=== PATIENT | female | born 1945 | race Two or more races ===

== ENCOUNTER 2019-11-01 10:54 | Inpatient (IN) | payer MEDICARE, MEDICAID ==
[~2019-11-01] VITALS: Ht 160 cm; Wt 73.1 kg
[2019-11-01] VITALS (16 sets, daily range): BP systolic 89–101; BP diastolic 46–65
--- NOTE | 2019-11-01 11:10 | NUR ---
ED Nurse Note: pt brought in to ER by ambulance from [facility] due to low hemoglobin. pt aao x0 and opens eyes spontaneusly. no cough or fever noted. pt is in gown and on threat monitoring analyst. ERMD and RT at bedside. pt has trache with vent dependent. G-tube and FC present.
[2019-11-01 11:54] LABS: ANION GAP 11 mmol/L (5-15); BLOOD UREA NITROGEN 33 mg/dL (7-18); CALCIUM 8.7 MG/DL (8.5-10.1); CARBON DIOXIDE 24 MMOL/L (21-32); CHLORIDE 100 MMOL/L (98-107); POTASSIUM 4.4 MMOL/L (3.5-5.1); SODIUM 135 MMOL/L (136-145)
[2019-11-01 12:06] LABS: ALANINE AMINOTRANSFERASE < 6 U/L (12-78); ALBUMIN 2.3 G/DL (3.4-5.0); ALBUMIN/GLOBULIN RATIO 0.6 (1.0-2.7); ALKALINE PHOSPHATASE 76 U/L (46-116); ASPARTATE AMINO TRANSFERASE 22 U/L (15-37); BILIRUBIN,TOTAL 0.7 MG/DL (0.2-1.0)
[2019-11-01 12:06] LABS: APPEARANCE,URINE SLIGHTLY CLOUDY; BILIRUBIN, URINE NEGATIVE (NEGATIVE); GLUCOSE, URINE (UA) NEGATIVE (NEGATIVE); KETONES,URINE 1+ (NEGATIVE); LEUKOCYTE ESTERASE ,URINE 3+ (NEGATIVE); NITRITE,URINE NEGATIVE (NEGATIVE); PH,URINE 5 (4.5-8.0); PROTEIN,URINE 2+ (NEGATIVE); UROBILINOGEN,URINE NORMAL MG/DL (0.0-1.0)
[2019-11-01 12:11] LABS: COLOR,URINE ORANGE
[2019-11-01 13:02] LABS: INR 1.3 (0.9-1.1)
[2019-11-01 13:06] LABS: HEMATOCRIT 20.1 % (37.0-47.0); HEMOGLOBIN 6.5 G/DL (12.0-16.0); MEAN CORPUSCULAR VOLUME 84 FL (80-99); PLATELET COUNT 40 K/UL (150-450); RED CELL DISTRIBUTION WIDTH 15.3 % (11.6-14.8); WHITE BLOOD COUNT 13.3 K/UL (4.8-10.8)
--- NOTE | 2019-11-01 13:30 | NUR ---
ED Nurse Note: pt resting in bed without distress. opens eyes spontaneously. no fever, cough noted.
--- NOTE | 2019-11-01 14:10 | Emergency Room Report ---
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 COVID-19 Screening: Negative COVID-19 COVID-19 Testing Source: TONGUER Patient History Past Medical History: other - trach Past Surgical History: none Pertinent Family History: none Social History: Denies: smoking, alcohol use, drug use Now: No Immunizations: UTD Reviewed Nursing Documentation: PMH: Agreed; PSxH: Agreed Review of Systems All Other Systems: limited Physical Exam Vital Signs Date Time Temp Pulse Resp B/P (MAP) Pulse Ox O2 Delivery O2 Flow Rate FiO2 11/01/19 10:56 97.3 90 24 101/47 (65) 100 Mechanical Ventilator 11/01/19 11:51 50 Sp02 EP Interpretation: reviewed, normal General Appearance: no apparent distress, GCS 15, non-toxic, other - nonverbal Head: normocephalic, atraumatic Eyes: bilateral eye normal inspection, bilateral eye PERRL ENT: hearing grossly normal, normal pharynx, no angioedema, normal voice Neck: full range of motion, supple/symm/no masses, tracheotomy Respiratory: chest non-tender, lungs clear, normal breath sounds, speaking full sentences Cardiovascular #1: regular rate, rhythm, no edema Cardiovascular #2: 2+ carotid (R), 2+ carotid (L), 2+ radial (R), 2+ radial (L) , 2+ dorsalis pedis (R), 2+ dorsalis pedis (L) Gastrointestinal: normal bowel sounds, non tender, soft, non-distended, no guarding, no rebound Rectal: deferred Genitourinary: normal inspection, no CVA tenderness Musculoskeletal: back normal, normal range of motion, gait/station normal, non- tender Neurologic: alert, motor strength/tone normal, oriented x3, sensory intact, responsive, speech normal Psychiatric: judgement/insight normal, memory normal, mood/affect normal, no suicidal/homicidal ideation Reflexes: 3+ bicep (R), 3+ bicep (L), 3+ tricep (R), 3+ tricep (L), 3+ knee (R) , 3+ knee (L) Skin: other - see nursing skin notes Lymphatic: no adenopathy Medical Decision Making Diagnostic Impression: Primary Impression: Anemia Qualified Codes: D64.9 - Anemia, unspecified Additional Impressions: Tracheostomy dependence UTI (urinary tract infection) Qualified Codes: N39.0 - Urinary tract infection, site not specified ER Course Hospital Course 74-year-old female presents to ED for low hb/hct from SNF. trach dependent Differential diagnoses include: anemia requiring transfusion, microcytic anemia , macrocytic anemia, heavy blood loss Clinical course Patient placed on stretcher. After initial history and physical I ordered labs , EKG, CXR, IVFs Labs- minimal leukocytosis, hemoglobin/hematocrit 6.5/20.1. Electrolytes okay, coags ok, UA + bacteria PRBCs ordered. Given IV fluids. Given antibiotics Patient admitted to Dr Prince's service. he noted that patient is DNR. Diagnosis - anemia, tracheostomy dependence, UTI Admitted to SDU in serious condition Labs Test 11/01/19 11:30 11/01/19 11:45 11/01/19 12:05 Sodium Level 135 MMOL/L (136-145) Potassium Level 4.4 MMOL/L (3.5-5.1) Chloride Level 100 MMOL/L (98-107) Carbon Dioxide Level 24 MMOL/L (21-32) Anion Gap 11 mmol/L (5-15) Blood Urea Nitrogen 33 mg/dL (7-18) Creatinine 1.0 MG/DL (0.55-1.30) Estimat Glomerular Filtration Rate 54.0 mL/min (>60) Glucose Level 121 MG/DL (74-106) Calcium Level 8.7 MG/DL (8.5-10.1) Total Bilirubin 0.7 MG/DL (0.2-1.0) Aspartate Amino Transf (AST/SGOT) 22 U/L (15-37) Alanine Aminotransferase (ALT/SGPT) < 6 U/L (12-78) Alkaline Phosphatase 76 U/L (46-116) Pro-B-Type Natriuretic Peptide 687 pg/mL (0-125) Total Protein 6.4 G/DL (6.4-8.2) Albumin 2.3 G/DL (3.4-5.0) Globulin 4.1 g/dL Albumin/Globulin Ratio 0.6 (1.0-2.7) Urine Color [place] Urine Appearance Slightly cloudy Urine pH 5 (4.5-8.0) Urine Specific [place] 1.010 (1.005-1.035) Urine Protein 2+ (NEGATIVE) Urine Glucose (UA) Negative (NEGATIVE) Urine Ketones 1+ (NEGATIVE) Urine Blood 2+ (NEGATIVE) Urine Nitrite Negative (NEGATIVE) Urine Bilirubin Negative (NEGATIVE) Urine Urobilinogen Normal MG/DL (0.0-1.0) Urine Leukocyte Esterase 3+ (NEGATIVE) Urine RBC 2-4 /HPF (0 - 2) Urine WBC 10-15 /HPF (0 - 2) Urine Squamous Epithelial Cells Few /LPF (NONE/OCC) Urine Calcium Oxalate Crystals Few /LPF (NONE) Urine Bacteria Many /HPF (NONE) White Blood Count 13.3 K/UL (4.8-10.8) Red Blood Count 2.40 M/UL (4.20-5.40) Hemoglobin 6.5 G/DL (12.0-16.0) Hematocrit 20.1 % (37.0-47.0) Mean Corpuscular Volume 84 FL (80-99) Mean Corpuscular Hemoglobin 27.0 PG (27.0-31.0) Mean Corpuscular Hemoglobin Concent 32.2 G/DL (32.0-36.0) Red Cell Distribution Width 15.3 % (11.6-14.8) Platelet Count 40 K/UL (150-450) Mean Platelet Volume 16.3 FL (6.5-10.1) Neutrophils (%) (Auto) % (45.0-75.0) Lymphocytes (%) (Auto) % (20.0-45.0) Monocytes (%) (Auto) % (1.0-10.0) Eosinophils (%) (Auto) % (0.0-3.0) Basophils (%) (Auto) % (0.0-2.0) Prothrombin Time 13.7 SEC (9.30-11.50) Prothromb Time International Ratio 1.3 (0.9-1.1) Activated Partial Thromboplast Time 28 SEC (23-33) EKG Diagnostic Results Rate: normal Rhythm: NSR ST Segments: no acute changes ASA given to the pt in ED: No Rhythm Strip Diag. Results EP Interpretation: yes Rhythm: NSR, no PVC's, no ectopy Chest X-Ray Diagnostic Results Chest X-Ray Diagnostic Results : Chest X-Ray Ordered: Yes # of Views/Limited/Complete: 1 View Indication: Other EP Interpretation: Yes Interpretation: no pneumothorax, other - L sided effusion. perihilar fullness Impression: Other - pleural effusion Electronically Signed by: Electronically signed by Justen Villarreal MD Last Vital Signs Date Time Temp Pulse Resp B/P (MAP) Pulse Ox O2 Delivery O2 Flow Rate FiO2 11/01/19 11:51 89 25 50 11/01/19 11:20 97.3 89/53 100 Mechanical Ventilator Status: improved Disposition: ADMITTED INPATIENT Condition: Serious Referrals: Fredrick Prince MD (PCP) Justen Villarreal MD Nov 01, 2019 14:10
--- NOTE | 2019-11-01 15:07 | Diagnostic Imaging Report ---
Indication: Shortness of breath Technique: One view of the chest Comparison: none Findings: The left hemidiaphragm is elevated. Atelectatic changes are present in the left lung base. There is minimal right basilar atelectasis. No definite infiltrates. There is a tracheostomy. Impression: Elevated left hemidiaphragm with considerable left basilar atelectasis. Less extensive right basilar atelectasis.
--- NOTE | 2019-11-01 16:41 | NUR ---
RESPIRATORY NOTE: pt arrived to ER and on vent. pt is trached with cuffed shiley 6 in placed. trach tie, ballards and gauze were changed here. pt stoma, slightly red but no bleeding. per EMS vent settings upon arrival were AC 20 400 30% +5. no signs of resp distress noted. trach is secured and midline. RN at bedside.
--- NOTE | 2019-11-01 17:04 | NUR ---
ED Nurse Note: pt skin checked with 1 [employer] MEDIA PROGRAM DIRECTOR. pictures taken and uploaded.
[2019-11-01] MEDS ORDERED: ROXICODONE5 MG GT (18:19)
[2019-11-01] MEDS ORDERED: MULTI-DELYN237 ML GT (18:19)
[2019-11-01] MEDS ORDERED: SENNA8.6 M2 GT (18:19)
[2019-11-01] MEDS ORDERED: DOCUSATE SODIU100 M2 GT (18:19)
[2019-11-01] MEDS ORDERED: ARGINAID POWDE1 EACH GT (18:19)
[2019-11-01] MEDS ORDERED: ASCORBIC ACID500 M3 ORAL (18:19)
[2019-11-01] MEDS ORDERED: ALLOPURINOL100 M1 GT (18:19)
[2019-11-01] MEDS ORDERED: ARICEPT23 MG GT (18:19)
--- NOTE | 2019-11-01 18:23 | NUR ---
ED Nurse Note: resting in bed without s/s of acute distress. vs stable as documented.
--- NOTE | 2019-11-01 18:29 | NUR ---
ED Nurse Note: called Jose Maria at number [phone] and received verbal consent to start blood transfusion.
--- NOTE | 2019-11-01 19:05 | NUR ---
ED Nurse Note: Received report from Daphne DUKE. Pt seen in bed, eyes closed. AAOx0. Pt is on vent, tolerating well. Safety and comfort provided. Will cont to monitor.
--- NOTE | 2019-11-01 19:50 | NUR ---
ED Nurse Note: Blood was picked up from Blood bank by an RN.
--- NOTE | 2019-11-01 19:55 | NUR ---
ED Nurse Note: Blood transfusion started, verified blood with another RN. No ASE noted.
--- NOTE | 2019-11-01 21:54 | NUR ---
ED Nurse Note: Blood transfusion done. Blood and blood tubings were sentback to blood bank. No ASE, pt tolerated well. 2nd unit of blood was picked up by an RN.
--- NOTE | 2019-11-01 22:05 | NUR ---
ED Nurse Note: Blood transfusion started. 2nd blood of unit verified with another RN. No ASE.
--- NOTE | 2019-11-01 22:55 | History & Physical ---
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 COVID-19 Screening: Negative COVID-19 COVID-19 Testing Source: DIVERSITY MANAGER Patient History Past Medical History: other - trach Past Surgical History: none Pertinent Family History: none Social History: Denies: smoking, alcohol use, drug use Now: No Immunizations: UTD Reviewed Nursing Documentation: PMH: Agreed; PSxH: Agreed Review of Systems All Other Systems: trach, demntia, aphsia ER Physical Exam - General Physical Exam Vital Signs Date Time Temp Pulse Resp B/P (MAP) Pulse Ox O2 Delivery O2 Flow Rate FiO2 11/01/19 10:56 97.3 90 24 101/47 (65) 100 Mechanical Ventilator 11/01/19 11:51 50 Sp02 EP Interpretation: reviewed, normal General Appearance: no apparent distress, GCS 15, non-toxic, other - nonverbal Head: normocephalic, atraumatic +temporal wasting Eyes: bilateral eye normal inspection, bilateral eye PERRL ENT: hearing grossly normal, normal pharynx, no angioedema, normal voice Neck: full range of motion, supple/symm/no masses, tracheotomy Respiratory: chest non-tender, lungs clear, normal breath sounds, speaking full sentences Cardiovascular #1: regular rate, rhythm, no edema Cardiovascular #2: 2+ carotid (R), 2+ carotid (L), 2+ radial (R), 2+ radial (L) , 2+ dorsalis pedis (R), 2+ dorsalis pedis (L) Gastrointestinal: normal bowel sounds, non tender, soft, non-distended, no guarding, no rebound Rectal: deferred Genitourinary: normal inspection, no CVA tenderness Musculoskeletal: back normal, normal range of motion, gait/station normal, non- tender +contractures Neurologic: alert, motor strength/tone normal, oriented x3, sensory intact, responsive, speech normal Psychiatric: judgement/insight normal, memory normal, mood/affect normal, no suicidal/homicidal ideation Skin: other - see nursing skin notes Lymphatic: no adenopathy pressure ulcers +dong Labs Test 11/01/19 11:30 11/01/19 11:45 11/01/19 12:05 Sodium Level 135 MMOL/L (136-145) Potassium Level 4.4 MMOL/L (3.5-5.1) Chloride Level 100 MMOL/L (98-107) Carbon Dioxide Level 24 MMOL/L (21-32) Anion Gap 11 mmol/L (5-15) Blood Urea Nitrogen 33 mg/dL (7-18) Creatinine 1.0 MG/DL (0.55-1.30) Estimat Glomerular Filtration Rate 54.0 mL/min (>60) Glucose Level 121 MG/DL (74-106) Calcium Level 8.7 MG/DL (8.5-10.1) Total Bilirubin 0.7 MG/DL (0.2-1.0) Aspartate Amino Transf (AST/SGOT) 22 U/L (15-37) Alanine Aminotransferase (ALT/SGPT) < 6 U/L (12-78) Alkaline Phosphatase 76 U/L (46-116) Pro-B-Type Natriuretic Peptide 687 pg/mL (0-125) Total Protein 6.4 G/DL (6.4-8.2) Albumin 2.3 G/DL (3.4-5.0) Globulin 4.1 g/dL Albumin/Globulin Ratio 0.6 (1.0-2.7) Urine Color [place] Urine Appearance Slightly cloudy Urine pH 5 (4.5-8.0) Urine Specific [place] 1.010 (1.005-1.035) Urine Protein 2+ (NEGATIVE) Urine Glucose (UA) Negative (NEGATIVE) Urine Ketones 1+ (NEGATIVE) Urine Blood 2+ (NEGATIVE) Urine Nitrite Negative (NEGATIVE) Urine Bilirubin Negative (NEGATIVE) Urine Urobilinogen Normal MG/DL (0.0-1.0) Urine Leukocyte Esterase 3+ (NEGATIVE) Urine RBC 2-4 /HPF (0 - 2) Urine WBC 10-15 /HPF (0 - 2) Urine Squamous Epithelial Cells Few /LPF (NONE/OCC) Urine Calcium Oxalate Crystals Few /LPF (NONE) Urine Bacteria Many /HPF (NONE) White Blood Count 13.3 K/UL (4.8-10.8) Red Blood Count 2.40 M/UL (4.20-5.40) Hemoglobin 6.5 G/DL (12.0-16.0) Hematocrit 20.1 % (37.0-47.0) Mean Corpuscular Volume 84 FL (80-99) Mean Corpuscular Hemoglobin 27.0 PG (27.0-31.0) Mean Corpuscular Hemoglobin Concent 32.2 G/DL (32.0-36.0) Red Cell Distribution Width 15.3 % (11.6-14.8) Platelet Count 40 K/UL (150-450) Mean Platelet Volume 16.3 FL (6.5-10.1) Neutrophils (%) (Auto) % (45.0-75.0) Lymphocytes (%) (Auto) % (20.0-45.0) Monocytes (%) (Auto) % (1.0-10.0) Eosinophils (%) (Auto) % (0.0-3.0) Basophils (%) (Auto) % (0.0-2.0) Prothrombin Time 13.7 SEC (9.30-11.50) Prothromb Time International Ratio 1.3 (0.9-1.1) Activated Partial Thromboplast Time 28 SEC (23-33) EKG Diagnostic Results Rate: normal Rhythm: NSR ST Segments: no acute changes ASA given to the pt in ED: No Rhythm Strip Diag. Results Rhythm: NSR, no PVC's, no ectopy Chest X-Ray Diagnostic Results Chest X-Ray Diagnostic Results : Chest X-Ray Ordered: Yes # of Views/Limited/Complete: 1 View Indication: Other EP Interpretation: Yes Interpretation: no pneumothorax, other - L sided effusion. 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 Fredrick Prince MD Nov 01, 2019 22:54
[2019-11-01] MEDS ORDERED: Metoclopramide 10mg/2ml Inj IVP PRN (23:15)
[2019-11-01] MEDS: Acetaminophen 650mg/20.3ml NG SCH ×2 (23:15→23:56)
[2019-11-01] MEDS ORDERED: Acetaminophen 650mg/20.3ml NG ONE (23:15)
[2019-11-02] VITALS (8 sets, daily range): BP systolic 97–150; BP diastolic 50–69
--- NOTE | 2019-11-02 01:32 | NUR ---
ED Nurse Note: Blood transfusion done. No ASE noted, pt tolerated well. Blood tubings are sent to blood bank
--- NOTE | 2019-11-02 04:15 | NUR ---
ED Nurse Note: Pt seen in bed, eyes closed. No acute distress. On mech vent, tolerating well. Safety and comfort provided.
--- NOTE | 2019-11-02 05:39 | NUR ---
ED Nurse Note: Report given to Sarwat DUKE.
--- NOTE | 2019-11-02 05:45 | NUR ---
TRANSFER TO FLOOR: Patient transferred to SDU. Report given to Sarwat DUKE. Pt AAOx0, non verbal. Not in any distress. Pt is trach/ vent dependent. Sinus rhythm. Swabs are sent. Skin assessement done and uploaded. Pt doesnt have any belongings.
--- NOTE | 2019-11-02 06:00 | NUR ---
NURSE NOTES: Pt transferred to the unit via [facility], belonging checked. Skin checked and picture taken and will be uploaded. Pt Obtunded, no signs of pain noted. SR on diagnostic cardiac sonographer. Trach to vent, AC mode, TV 400, FIO2 60%, PEEP 5. IV on R AC 22G, TKO. Bed in the lowest position. Side rails up x3. Will continue to monitor.
--- NOTE | 2019-11-02 07:50 | NUR ---
HAND-OFF: Report given to SRIKANTH Coelho.
--- NOTE | 2019-11-02 07:55 | NUR ---
NURSE NOTES: Received report from SRIKANTH Pastor. The patient is resting on the bed without acute distress or shortness of breath. [facility] communication made by facial expression and body movement. SR with HR of 90s on the desk monitor. [facility] and on ventilator on ordered setting as followed: Shiley 6, AC20, TV 400, PEEP 5, FiO2 30% and oxygen saturation is 100%. The patient's GJ tube intact and patent. The patient is on Osmolite 1.5 @10mL/hr with goal of 40mL/hr with prostat TID. The patient has Bailey that is intact and patent and draining by gravity. Skin issue noted and picture taken and skin protector applied. R AC 22G that is intact and patent and kept TKO. Will obtain admission order. Will closely monitor the patient. Will continue plan of care. Addendum: 11/02/19 at 1451 by Maciel Graham RN The patient's bed in the lowest position, call light in reach, and fall and aspiration precaution reinforced.
[2019-11-02] MEDS ORDERED: Miralax 17gm pkt ORAL PRN (08:00)
[2019-11-02] MEDS ORDERED: oxyCODONE 5mg IR tab GT PRN (08:15)
[2019-11-02] MEDS ORDERED: Miralax 17gm pkt GT PRN (08:30)
--- NOTE | 2019-11-02 08:30 | NUR ---
NURSE NOTES: Obtained admission orders from Dr. Prince including medication, wound care consult, COVID swab repeating, contraindication of DVT prophylasix, confirmation of code status, and stat CBC. Will carry out the order as soon as possible. Will continue plan of care.
[2019-11-02] MEDS ORDERED: Morphine Sulfate 2mg/ml Inj(IV/IM USE ONLY) IVP PRN (08:36)
[2019-11-02] MEDS ORDERED: Docusate 100mg cap ORAL SCH (09:00)
[2019-11-02] MEDS: oxyCODONE 5mg IR tab GT SCH ×4 (09:00→20:45)
--- NOTE | 2019-11-02 09:30 | NUR ---
NURSE NOTES: Notified Dr. Prince regarding updated abnormal lab. Informed uptrend of WBC, uptrend of Hgb s/p 2 unit pRBC transfusion @ ER, low platelet level, and elevated band level. Will wait for further order. Will continue plan of care.
[2019-11-02 09:44] LABS: HEMATOCRIT 26.5 % (37.0-47.0); HEMOGLOBIN 9.1 G/DL (12.0-16.0); MEAN CORPUSCULAR VOLUME 82 FL (80-99); PLATELET COUNT 48 K/UL (150-450); RED BLOOD COUNT 3.22 M/UL (4.20-5.40); RED CELL DISTRIBUTION WIDTH 14.3 % (11.6-14.8); WHITE BLOOD COUNT 15.5 K/UL (4.8-10.8)
[2019-11-02] MEDS: Docusate 100mg/10ml Liq GT SCH (09:55)
[2019-11-02] MEDS: Levodopa/Carbidopa 25/100 tab GT SCH ×4 (09:56→20:46)
[2019-11-02] MEDS: Multivitamins W/Minerals 15 ML UDC GT SCH (09:56)
[2019-11-02] MEDS: Ascorbic Acid 500mg tab GT SCH (09:57)
[2019-11-02] MEDS: Allopurinol 100mg Tab GT SCH ×3 (09:58→19:26)
[2019-11-02] MEDS ORDERED: Cefepime HCl 1 GM in D5W 55 ML IVPB SCH (10:00)
--- NOTE | 2019-11-02 10:00 | NUR ---
NURSE NOTES: Morning medications administered per order. The patient is resting comfortably at this time. Will closely monitor the patient. Will continue plan of care.
--- NOTE | 2019-11-02 10:00 | NUR ---
NURSE NOTES: The pharmacist verified with Dr. Prince regarding order of Cefepime since the patient is allergic to PCN. Approved by Dr. Prince and the pharmacist. Will administer as ordered but will closely monitor the patient for adverse reaction. Will continue plan of care.
--- NOTE | 2019-11-02 11:17 | NUR ---
RD ASSESSMENT & RECOMMENDATIONS SEE CARE ACTIVITY FOR COMPLETE ASSESSMENT DAILY ESTIMATED NEEDS: Needs based on Critical care, wounds, 64kg 22-28 kcals/kg 0858-3607 total kcals 1.25-2 g protein/kg 80-128 g total protein 25-30 mL/kg 7723-7185 total fluid mLs NUTRITION DIAGNOSIS: Swallowing difficulty r/t respiratory status as evidenced by pt is trach and peg dep. 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 - Start @25ml/hr for 6 hrs, advance as tolerated 10ml/hr q4-6 hrs to goal - Flush per - HOB over 30 degrees ADDITIONAL RECOMMENDATIONS: 1) Per SNF: 65 inches (5'5"); 141 lbs (64.1kg) 2) TF recs as above 3) F/up w/ WC eval -> add MEIR BID via GT
--- NOTE | 2019-11-02 11:30 | NUR ---
NURSE NOTES: Notified Dr. Prince regarding positive blood culture result. Dr. Prince ordered physician consult to Dr. Houser for wound and Dr. Membreno for positive blood culture. Will closely monitor the patient. Will continue plan of care.
--- NOTE | 2019-11-02 12:14 | NUR ---
CASE MANAGEMENT: REVIEW 74 YEAR OLD FEMALE BIBA FROM [facility] CC: ABNORMAL LABS SI: ANEMIA . UTI . TRACHEOSTOMY DEPENDENCE T 99.5 HE 101 RR 25 BP 111/62 SAT 100% FIO2 30 WBC 15.5 H/H 6.5/20.1 BLAST CELLS 40% URINE CX -- GRAM NEG BACILLUS IS: NS IVF BOLUS X1 LEVOFLOXACIN IV X1 TYLENOL GT X1 TRANSFUSE PRBC 2 UNITS PATIENT ADMITTED TO STEP DOWN UNIT 2019 DCP: PATIENT IS FROM [facility] Addendum: 11/02/19 at 1630 by OMAR PINTO LVN LVN INTERQUAL CRITERIA MET
--- NOTE | 2019-11-02 12:16 | Internal Med Progress Note ---
Subjective Date of Service: Nov 02, 2019 Physician Name Fredrick Prince Attending Physician Fredrick Prince MD Current Medications Medications (Trade) Dose Ordered Sig/Inna Route PRN Reason Start Time Stop Time Status Last Admin Dose Admin Acetaminophen (Tylenol) 650 mg Q4H PRN NG fever 100.4, mild pain 11/01/19 23:15 12/01/19 23:14 Allopurinol (Zyloprim) 100 mg TID GT 11/02/19 09:00 12/02/19 08:59 11/02/19 09:58 Ascorbic Acid (Vitamin C) 500 mg DAILY GT 11/02/19 09:00 12/02/19 08:59 11/02/19 09:57 Carbidopa/Levodopa (Sinemet 25/100) 2 tab QID GT 11/02/19 09:00 12/02/19 08:59 11/02/19 09:56 Cefepime HCl 1 gm/ Dextrose 55 ml @ 110 mls/hr Q12HR IVPB 11/02/19 10:00 11/09/19 09:59 11/02/19 09:58 Docusate Sodium (Colace) 100 mg DAILY GT 11/02/19 09:00 12/02/19 08:59 11/02/19 09:55 Donepezil HCl (Aricept) 10 mg QHS GT 11/02/19 21:00 12/02/19 20:59 Lansoprazole (Prevacid) 30 mg BID GT 11/02/19 09:00 12/02/19 08:59 11/02/19 09:56 Metoclopramide HCl (Reglan) 5 mg Q6H PRN IVP nausea or vomiting 11/01/19 23:15 12/01/19 23:14 Morphine Sulfate (Morphine Sulfate) 2 mg Q3H PRN IVP Moderate Pain (Pain Scale 4-6) 11/02/19 08:36 11/09/19 08:35 Multivitamins (Multivitamins W/ Minerals 15ml Liquid) 15 ml DAILY GT 11/02/19 09:00 12/02/19 08:59 11/02/19 09:56 Ondansetron HCl (Zofran) 4 mg Q4H PRN IVP Nausea & Vomiting 11/01/19 23:15 12/01/19 23:14 Oxycodone HCl (Roxicodone) 10 mg Q4HR GT 11/02/19 09:00 11/09/19 08:59 Polyethylene Glycol (Miralax) 17 gm DAILY PRN GT Constipation 11/02/19 08:30 12/02/19 07:59 Quetiapine Fumarate (SEROqueL) 50 mg QHS GT 11/02/19 21:00 12/17/19 20:59 Sennosides (Senokot) 8.6 mg QHS GT 11/02/19 21:00 12/02/19 20:59 Sodium Chloride 1,000 ml @ 10 mls/hr Q24H ONCE IV 11/01/19 13:11 11/02/19 13:10 Allergies: Coded Allergies: PENICILLINS (Verified Allergy, Unknown, 11/01/19) VANCOMYCIN (Verified Allergy, Unknown, 11/01/19) Uncoded Allergies: PENICI (Allergy, Unknown, 11/01/19) ROS Limited/Unobtainable: Yes All Systems: reviewed and negative except above Subjective non verbal, chronic trach Objective Last Vital Signs Date Time Temp Pulse Resp B/P (MAP) Pulse Ox O2 Delivery O2 Flow Rate FiO2 11/02/19 11:30 99.5 101 20 111/62 (78) 100 11/02/19 11:15 30 11/02/19 05:49 Mechanical Ventilator General Appearance: no apparent distress Cardiovascular: normal rate, regular rhythm, no JVD Respiratory/Chest: rhonchi - bilaterally Abdomen: normal bowel sounds, non tender, soft Neurologic: aphasia, other - does not follow command Skin: warm/dry, other - unstageable decubiti ulcer Laboratory Tests Test 11/02/19 09:10 White Blood Count 15.5 K/UL (4.8-10.8) H Red Blood Count 3.22 M/UL (4.20-5.40) L Hemoglobin 9.1 G/DL (12.0-16.0) #L Hematocrit 26.5 % (37.0-47.0) #L Mean Corpuscular Volume 82 FL (80-99) Mean Corpuscular Hemoglobin 28.3 PG (27.0-31.0) Mean Corpuscular Hemoglobin Concent 34.5 G/DL (32.0-36.0) Red Cell Distribution Width 14.3 % (11.6-14.8) Platelet Count 48 K/UL (150-450) L Mean Platelet Volume 9.8 FL (6.5-10.1) Neutrophils (%) (Auto) % (45.0-75.0) Lymphocytes (%) (Auto) % (20.0-45.0) Monocytes (%) (Auto) % (1.0-10.0) Eosinophils (%) (Auto) % (0.0-3.0) Basophils (%) (Auto) % (0.0-2.0) Differential Total Cells Counted 100 Neutrophils % (Manual) 31 % (45-75) L Lymphocytes % (Manual) 12 % (20-45) L Monocytes % (Manual) 12 % (1-10) H Eosinophils % (Manual) 4 % (0-3) H Basophils % (Manual) 0 % (0-2) Blast Cells % 41 % (0-0) *H Band Neutrophils 0 % (0-8) Platelet Estimate Decreased L Platelet Morphology Normal Hypochromasia 2+ Anisocytosis 1+ Microbiology Date/Time Source Procedure Growth Status 11/01/19 11:45 Urine,Clean Catch Urine Culture - Preliminary Gram Negative Bacillus 1 Resulted 11/01/19 16:30 Rectum Received Intake and Output 11/01/19 11/02/19 19:00 07:00 Intake Total 2150 ml 2440 ml Output Total 700 ml 2000 ml Balance 1450 ml 440 ml Intake Free Water 30 ml IV Total 2150 ml 2150 ml Tube Feeding 10 ml Blood Product 250 ml Output Urine Total 700 ml 2000 ml Assessment/Plan Status: stable, progressing Assessment/Plan Impression: 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 Fredrick Prince MD Nov 01, 2019 22:54 Fredrick Prince MD Nov 02, 2019 12:16
[2019-11-02] MEDS: Acetaminophen 650mg/20.3ml NG PRN ×2 (12:50→19:27)
--- NOTE | 2019-11-02 13:00 | NUR ---
NURSE NOTES: 100mL residual noted even with Osmolite @10mL/hr. Held the tube feeding. Administered Tylenol for fever of 100.5F. Will closely monitor the patient. Will continue plan of care.
[2019-11-02] MEDS ORDERED: DAPTOmycin 500 MG in NS 55 ML IV ONE (14:00)
--- NOTE | 2019-11-02 14:00 | NUR ---
NURSE NOTES: Dr. Membreno at the bedside assessed the patient. Notified episode of fever, abnormal lab including elevated WBC, unstagable sacral wound, and positive blood culture. Dr. Membreno will review and put the order. Will closely monitor the patient. Will continue plan of care.
--- NOTE | 2019-11-02 14:13 | Consultation ---
History of Present Illness General Date patient seen: Nov 02, 2019 Reason for Hospitalization: Abnormal Labs Present Illness HPI This is a 74-year-old female [facility] residential resident presented with anemia and leukocytosis abnormal labs admitted further care and management trach dependent on support decubitus ulcers wound surgery called to evaluate and assist with care patient seen, patient evaluated, chart reviewed. Allergies: Coded Allergies: PENICILLINS (Verified Allergy, Unknown, 11/01/19) VANCOMYCIN (Verified Allergy, Unknown, 11/01/19) Uncoded Allergies: PENICI (Allergy, Unknown, 11/01/19) COVID-19 Screening Contact w/high risk pt: Yes Recent Travel to affected area: No Experienced COVID-19 symptoms?: No Medication History Scheduled Allopurinol* (Allopurinol*), 100 MG GT TID, (Reported) Arginine/Ascorbate Sod/Elsa AC (Arginaid Powder), 1 EACH GT BID, (Reported) Ascorbic Acid (Ascorbic Acid), 500 MG ORAL DAILY, (Reported) Docusate Sodium (Docusate Sodium), 100 MG GT DAILY, (Reported) Donepezil Hcl (Aricept), 10 MG GT QHS, (Reported) Multivitamin Liquid* (Multi-Delyn*), 10 ML GT DAILY, (Reported) Sennosides (Senna), 8.6 MG GT QHS, (Reported) Scheduled PRN Oxycodone HCl (Oxycodone HCl), 2.5 MG GT Q4H PRN for For Pain, (Reported) Patient History Limited by: medical condition History Provided By: Medical Record, PMD Healthcare decision maker Resuscitation status Advanced Directive on File Past Medical/Surgical History Past Medical/Surgical History: (1) Anemia (2) UTI (urinary tract infection) (3) Tracheostomy dependence Review of Systems Review of Symptoms General ROS: no weight loss or fever Psychological ROS: no depression or mood changes, no memory loss Ophthalmic ROS: no visual changes or eye irritation ENT ROS: no nasal congestion, hearing loss, dizziness Allergy and Immunology ROS: no allergic symptoms or urticaria Hematological and Lymphatic ROS: no swollen glands, unusual bleeding or bruising Endocrine ROS: no polyuria, polydipsia, weight changes, temperature intolerance Respiratory ROS: no cough, shortness of breath, or wheezing Cardiovascular ROS: no chest pain or dyspnea on exertion Gastrointestinal ROS: denies abdominal pain, bright red blood in stool. Musculoskeletal ROS: no myalgias or arthralgias Neurological ROS: no TIA or stroke symptoms Dermatological ROS: no new or changing skin lesions, rashes or pruritis Physical Exam Physical Exam General appearance: no distress, appears stated age Head: Normocephalic, without obvious abnormality, atraumatic Eyes: conjunctivae/corneas clear. PERRL, EOM's intact. Fundi benign Throat: Lips, mucosa, and tongue normal. Teeth and gums normal Neck: supple, symmetrical, trachea midline, no adenopathy, thyroid: not enlarged, symmetric, no tenderness/mass/nodules, no carotid bruit and no JVD++ trach Lungs: clear to auscultation bilaterally Heart: regular rate and rhythm, S1, S2 normal, no murmur, click, rub or gallop Abdomen: soft, non-tender. Bowel sounds normal. No masses, no organomegaly tube Extremities: extremities normal, atraumatic, no cyanosis or edema Pulses: 2+ and symmetric Skin: Skin see below Neurologic: Grossly normal Last 24 Hour Vital Signs Date Time Temp Pulse Resp B/P (MAP) Pulse Ox O2 Delivery O2 Flow Rate FiO2 11/02/19 13:20 99.5 11/02/19 11:30 99.5 101 20 111/62 (78) 100 11/02/19 11:15 100 25 30 11/02/19 08:00 98.9 95 20 125/69 (87) 100 11/02/19 07:35 94 23 30 11/02/19 07:33 93 11/02/19 06:20 96 11/02/19 05:49 Mechanical Ventilator 11/02/19 05:45 98.2 88 19 101/52 100 Mechanical Ventilator 50 11/02/19 05:40 98.2 88 19 101/52 100 Mechanical Ventilator 50 11/02/19 03:00 98.2 77 20 98/50 100 Mechanical Ventilator 50 11/02/19 02:59 83 20 50 11/02/19 02:58 83 20 50 11/02/19 01:30 98.2 83 19 106/54 100 Mechanical Ventilator 50 11/02/19 00:35 98.2 73 20 97/51 100 Mechanical Ventilator 50 11/01/19 23:55 79 21 50 11/01/19 23:35 98.2 71 19 101/56 100 Mechanical Ventilator 50 11/01/19 23:05 98.2 80 20 100/52 100 Mechanical Ventilator 50 11/01/19 22:35 98.0 81 20 99/54 100 Mechanical Ventilator 50 11/01/19 22:20 98.0 79 19 98/51 100 Mechanical Ventilator 50 11/01/19 22:05 98.2 80 20 96/56 100 Mechanical Ventilator 50 11/01/19 21:54 98.2 81 19 95/58 100 Mechanical Ventilator 50 11/01/19 21:10 98.2 80 19 100/47 100 Mechanical Ventilator 50 11/01/19 20:40 98.2 79 20 95/49 100 Mechanical Ventilator 50 11/01/19 20:10 97.8 78 19 91/47 98 Mechanical Ventilator 50 11/01/19 19:55 97.8 78 20 93/56 100 Mechanical Ventilator 50 11/01/19 19:24 78 20 50 11/01/19 19:05 98.2 77 20 91/46 98 Mechanical Ventilator 50 11/01/19 18:20 77 20 92/60 100 Mechanical Ventilator 50 11/01/19 17:06 89 18 97/46 100 Mechanical Ventilator 50 11/01/19 16:03 88 20 50 11/01/19 15:20 98.2 91 20 98/65 100 Mechanical Ventilator 50 11/01/19 15:00 77 19 Mechanical Ventilator 50 Intake and Output 11/01/19 11/02/19 19:00 07:00 Intake Total 2150 ml 2440 ml Output Total 700 ml 2000 ml Balance 1450 ml 440 ml Intake Free Water 30 ml IV Total 2150 ml 2150 ml Tube Feeding 10 ml Blood Product 250 ml Output Urine Total 700 ml 2000 ml Laboratory Tests Test 11/02/19 09:10 White Blood Count 15.5 K/UL (4.8-10.8) H Red Blood Count 3.22 M/UL (4.20-5.40) L Hemoglobin 9.1 G/DL (12.0-16.0) #L Hematocrit 26.5 % (37.0-47.0) #L Mean Corpuscular Volume 82 FL (80-99) Mean Corpuscular Hemoglobin 28.3 PG (27.0-31.0) Mean Corpuscular Hemoglobin Concent 34.5 G/DL (32.0-36.0) Red Cell Distribution Width 14.3 % (11.6-14.8) Platelet Count 48 K/UL (150-450) L Mean Platelet Volume 9.8 FL (6.5-10.1) Neutrophils (%) (Auto) % (45.0-75.0) Lymphocytes (%) (Auto) % (20.0-45.0) Monocytes (%) (Auto) % (1.0-10.0) Eosinophils (%) (Auto) % (0.0-3.0) Basophils (%) (Auto) % (0.0-2.0) Differential Total Cells Counted 100 Neutrophils % (Manual) 31 % (45-75) L Lymphocytes % (Manual) 12 % (20-45) L Monocytes % (Manual) 12 % (1-10) H Eosinophils % (Manual) 4 % (0-3) H Basophils % (Manual) 0 % (0-2) Blast Cells % 41 % (0-0) *H Band Neutrophils 0 % (0-8) Platelet Estimate Decreased L Platelet Morphology Normal Hypochromasia 2+ Anisocytosis 1+ Microbiology Date/Time Source Procedure Growth Status 11/01/19 16:30 Rectum Received Height (Feet): 5 Height (Inches): 4.00 Weight (Pounds): 154 Medications Current Medications Medications (Trade) Dose Ordered Sig/Inna Route PRN Reason Start Time Stop Time Status Last Admin Dose Admin Acetaminophen (Tylenol) 650 mg Q4H PRN NG fever 100.4, mild pain 11/01/19 23:15 12/01/19 23:14 11/02/19 12:50 Allopurinol (Zyloprim) 100 mg TID GT 11/02/19 09:00 12/02/19 08:59 11/02/19 12:49 Ascorbic Acid (Vitamin C) 500 mg DAILY GT 11/02/19 09:00 12/02/19 08:59 11/02/19 09:57 Carbidopa/Levodopa (Sinemet 25/100) 2 tab QID GT 11/02/19 09:00 12/02/19 08:59 11/02/19 12:49 Cefepime HCl 1 gm/ Dextrose 55 ml @ 110 mls/hr Q12HR IVPB 11/02/19 10:00 11/09/19 09:59 11/02/19 09:58 Docusate Sodium (Colace) 100 mg DAILY GT 11/02/19 09:00 12/02/19 08:59 11/02/19 09:55 Donepezil HCl (Aricept) 10 mg QHS GT 11/02/19 21:00 12/02/19 20:59 Lansoprazole (Prevacid) 30 mg BID GT 11/02/19 09:00 12/02/19 08:59 11/02/19 09:56 Metoclopramide HCl (Reglan) 5 mg Q6H PRN IVP nausea or vomiting 11/01/19 23:15 12/01/19 23:14 11/02/19 12:51 Morphine Sulfate (Morphine Sulfate) 2 mg Q3H PRN IVP Moderate Pain (Pain Scale 4-6) 11/02/19 08:36 11/09/19 08:35 Multivitamins (Multivitamins W/ Minerals 15ml Liquid) 15 ml DAILY GT 11/02/19 09:00 12/02/19 08:59 11/02/19 09:56 Ondansetron HCl (Zofran) 4 mg Q4H PRN IVP Nausea & Vomiting 11/01/19 23:15 12/01/19 23:14 Oxycodone HCl (Roxicodone) 10 mg Q4HR GT 11/02/19 09:00 11/09/19 08:59 11/02/19 12:48 Polyethylene Glycol (Miralax) 17 gm DAILY PRN GT Constipation 11/02/19 08:30 12/02/19 07:59 Quetiapine Fumarate (SEROqueL) 50 mg QHS GT 11/02/19 21:00 12/17/19 20:59 Sennosides (Senokot) 8.6 mg QHS GT 11/02/19 21:00 12/02/19 20:59 Assessment/Plan Problem List: (1) Decubitus skin ulcer Assessment & Plan: Patient presented on admission with multiple skin concerns. Care plan initiated. Will follow with [facility] ICD Codes: L89.90 - Pressure ulcer of unspecified site, unspecified stage SNOMED: 878193548 (2) Malnutrition Assessment & Plan: DAILY ESTIMATED NEEDS: Needs based on Critical care, wounds, 64kg 22-28 kcals/kg 0323-4169 total kcals 1.25-2 g protein/kg 80-128 g total protein 25-30 mL/kg 7629-3811 total fluid mLs NUTRITION DIAGNOSIS: Swallowing difficulty r/t respiratory status as evidenced by pt is trach and peg dep. 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 - Start @25ml/hr for 6 hrs, advance as tolerated 10ml/hr q4-6 hrs to goal - Flush per - HOB over 30 degrees ADDITIONAL RECOMMENDATIONS: 1) Per SNF: 65 inches (5'5"); 141 lbs (64.1kg) 2) TF recs as above 3) F/up w/ WC eval -> add MEIR BID via GT ICD Codes: E46 - Unspecified protein-calorie malnutrition SNOMED: 81271278 (3) Anemia Assessment & Plan: transfused trend labs no active bleeding stool study GI eval ICD Codes: D64.9 - Anemia, unspecified SNOMED: 708273623 Qualifiers: Qualified Codes: D64.9 - Anemia, unspecified (4) UTI (urinary tract infection) ICD Codes: N39.0 - Urinary tract infection, site not specified SNOMED: 52747854 Qualifiers: Qualified Codes: N39.0 - Urinary tract infection, site not specified (5) Tracheostomy dependence Assessment & Plan: Findings: The left hemidiaphragm is elevated. Atelectatic changes are present in the left lung base. There is minimal right basilar atelectasis. No definite infiltrates. There is a tracheostomy. Impression: Elevated left hemidiaphragm with considerable left basilar atelectasis. Less extensive right basilar atelectasis. ICD Codes: Z93.0 - Tracheostomy status SNOMED: 765255528 Juan Houser Nov 02, 2019 14:13
--- NOTE | 2019-11-02 14:29 | Infectious Diseases Prog Note ---
Assessment/Plan Assessment/Plan Full consult dictated: A) 1) gram neg uti, sepsis, fevers, extensive sacral wound, leukocytosis, gram + bc 2) pmh noted 3) allergies - nkda P) 1) daptomycin, cefepime, flagyl 2) check cultures, labs and chest x-ray 3) wound management per surgery 4) thank you Subjective Allergies: Coded Allergies: PENICILLINS (Verified Allergy, Unknown, 11/01/19) VANCOMYCIN (Verified Allergy, Unknown, 11/01/19) Uncoded Allergies: PENICI (Allergy, Unknown, 11/01/19) Objective Vital Signs Last 24 Hour Vital Signs Date Time Temp Pulse Resp B/P (MAP) Pulse Ox O2 Delivery O2 Flow Rate FiO2 11/02/19 13:20 99.5 11/02/19 11:30 99.5 101 20 111/62 (78) 100 11/02/19 11:15 100 25 30 11/02/19 08:00 98.9 95 20 125/69 (87) 100 11/02/19 07:35 94 23 30 11/02/19 07:33 93 11/02/19 06:20 96 11/02/19 05:49 Mechanical Ventilator 11/02/19 05:45 98.2 88 19 101/52 100 Mechanical Ventilator 50 11/02/19 05:40 98.2 88 19 101/52 100 Mechanical Ventilator 50 11/02/19 03:00 98.2 77 20 98/50 100 Mechanical Ventilator 50 11/02/19 02:59 83 20 50 11/02/19 02:58 83 20 50 11/02/19 01:30 98.2 83 19 106/54 100 Mechanical Ventilator 50 11/02/19 00:35 98.2 73 20 97/51 100 Mechanical Ventilator 50 11/01/19 23:55 79 21 50 11/01/19 23:35 98.2 71 19 101/56 100 Mechanical Ventilator 50 11/01/19 23:05 98.2 80 20 100/52 100 Mechanical Ventilator 50 11/01/19 22:35 98.0 81 20 99/54 100 Mechanical Ventilator 50 11/01/19 22:20 98.0 79 19 98/51 100 Mechanical Ventilator 50 11/01/19 22:05 98.2 80 20 96/56 100 Mechanical Ventilator 50 11/01/19 21:54 98.2 81 19 95/58 100 Mechanical Ventilator 50 11/01/19 21:10 98.2 80 19 100/47 100 Mechanical Ventilator 50 11/01/19 20:40 98.2 79 20 95/49 100 Mechanical Ventilator 50 11/01/19 20:10 97.8 78 19 91/47 98 Mechanical Ventilator 50 11/01/19 19:55 97.8 78 20 93/56 100 Mechanical Ventilator 50 11/01/19 19:24 78 20 50 11/01/19 19:05 98.2 77 20 91/46 98 Mechanical Ventilator 50 11/01/19 18:20 77 20 92/60 100 Mechanical Ventilator 50 11/01/19 17:06 89 18 97/46 100 Mechanical Ventilator 50 11/01/19 16:03 88 20 50 11/01/19 15:20 98.2 91 20 98/65 100 Mechanical Ventilator 50 11/01/19 15:00 77 19 Mechanical Ventilator 50 Height (Feet): 5 Height (Inches): 4.00 Weight (Pounds): 154 Microbiology Date/Time Source Procedure Growth Status 11/01/19 11:15 Blood Blood Culture - Preliminary Resulted 11/01/19 11:45 Urine,Clean Catch Urine Culture - Preliminary Gram Negative Bacillus 1 Resulted 11/01/19 16:30 Rectum Received Laboratory Tests Test 11/02/19 09:10 White Blood Count 15.5 K/UL (4.8-10.8) H Red Blood Count 3.22 M/UL (4.20-5.40) L Hemoglobin 9.1 G/DL (12.0-16.0) #L Hematocrit 26.5 % (37.0-47.0) #L Mean Corpuscular Volume 82 FL (80-99) Mean Corpuscular Hemoglobin 28.3 PG (27.0-31.0) Mean Corpuscular Hemoglobin Concent 34.5 G/DL (32.0-36.0) Red Cell Distribution Width 14.3 % (11.6-14.8) Platelet Count 48 K/UL (150-450) L Mean Platelet Volume 9.8 FL (6.5-10.1) Neutrophils (%) (Auto) % (45.0-75.0) Lymphocytes (%) (Auto) % (20.0-45.0) Monocytes (%) (Auto) % (1.0-10.0) Eosinophils (%) (Auto) % (0.0-3.0) Basophils (%) (Auto) % (0.0-2.0) Differential Total Cells Counted 100 Neutrophils % (Manual) 31 % (45-75) L Lymphocytes % (Manual) 12 % (20-45) L Monocytes % (Manual) 12 % (1-10) H Eosinophils % (Manual) 4 % (0-3) H Basophils % (Manual) 0 % (0-2) Blast Cells % 41 % (0-0) *H Band Neutrophils 0 % (0-8) Platelet Estimate Decreased L Platelet Morphology Normal Hypochromasia 2+ Anisocytosis 1+ Current Medications Medications (Trade) Dose Ordered Sig/Inna Route PRN Reason Start Time Stop Time Status Last Admin Dose Admin Acetaminophen (Tylenol) 650 mg Q4H PRN NG fever 100.4, mild pain 11/01/19 23:15 12/01/19 23:14 11/02/19 12:50 Allopurinol (Zyloprim) 100 mg TID GT 11/02/19 09:00 12/02/19 08:59 11/02/19 12:49 Ascorbic Acid (Vitamin C) 500 mg DAILY GT 11/02/19 09:00 12/02/19 08:59 11/02/19 09:57 Carbidopa/Levodopa (Sinemet 25/100) 2 tab QID GT 11/02/19 09:00 12/02/19 08:59 11/02/19 12:49 Cefepime HCl 1 gm/ Dextrose 55 ml @ 110 mls/hr Q12HR IVPB 11/02/19 10:00 11/09/19 09:59 11/02/19 09:58 Docusate Sodium (Colace) 100 mg DAILY GT 11/02/19 09:00 12/02/19 08:59 11/02/19 09:55 Donepezil HCl (Aricept) 10 mg QHS GT 11/02/19 21:00 12/02/19 20:59 Lansoprazole (Prevacid) 30 mg BID GT 11/02/19 09:00 12/02/19 08:59 11/02/19 09:56 Metoclopramide HCl (Reglan) 5 mg Q6H PRN IVP nausea or vomiting 11/01/19 23:15 12/01/19 23:14 11/02/19 12:51 Morphine Sulfate (Morphine Sulfate) 2 mg Q3H PRN IVP Moderate Pain (Pain Scale 4-6) 11/02/19 08:36 11/09/19 08:35 Multivitamins (Multivitamins W/ Minerals 15ml Liquid) 15 ml DAILY GT 11/02/19 09:00 12/02/19 08:59 11/02/19 09:56 Ondansetron HCl (Zofran) 4 mg Q4H PRN IVP Nausea & Vomiting 11/01/19 23:15 12/01/19 23:14 Oxycodone HCl (Roxicodone) 10 mg Q4HR GT 11/02/19 09:00 11/09/19 08:59 11/02/19 12:48 Polyethylene Glycol (Miralax) 17 gm DAILY PRN GT Constipation 11/02/19 08:30 12/02/19 07:59 Quetiapine Fumarate (SEROqueL) 50 mg QHS GT 11/02/19 21:00 12/17/19 20:59 Sennosides (Senokot) 8.6 mg QHS GT 11/02/19 21:00 12/02/19 20:59 González Yadav MD Nov 02, 2019 14:29
[2019-11-02] MEDS ORDERED: metroNIDAZOLE 500mg tab ORAL SCH (15:30)
[2019-11-02] MEDS: DAPTOmycin 500 MG in NS 50 ML IV SCH (15:50)
--- NOTE | 2019-11-02 16:00 | NUR ---
NURSE NOTES: Bed bath given to the patient and dressing changed for the wound. Tolerated well. Tolerating well for vent setting. Tube feeding still on hold. Will continue plan of care.
--- NOTE | 2019-11-02 17:00 | NUR ---
NURSE NOTES: Resumed tube feeding with rate of 10mL/hr as residual decreased. Will closely monitor the patient. Will increase the tube feeding as tolerated. Will continue plan of care.
--- NOTE | 2019-11-02 17:19 | CDS Physician Query ---
Clarification is required for compliance, coding accuracy, and to reflect severity of illness for this patient. Dear Dr. Woodward, Date: 11.02.19 CDS: Aramis Glaser Malnutrition has been documented in this medical record. In order to accurately code this and to reflect the appropriate severity of ilness, please clarify diagnosis. 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 - Start @25ml/hr for 6 hrs, advance as tolerated 10ml/hr q4-6 hrs to goal - Flush per MD Jacqueline SCHNEIDER over 30 degrees [] Mild Malnutrition [XX] Moderate Malnutrition [] Severe Malnutrition [] Unknown degree [] Other: [] Clinically Undetermined Present on Admission: [XX] Yes [] No [] Clinically Undetermined Physician signature Date Please also document in your Progress Notes and/or Discharge Summary and indicate if the condition was present on admission. MTDD
--- NOTE | 2019-11-02 18:00 | NUR ---
NURSE NOTES: About to administer 1800 medications and Tylenol but was not able to administer medication as EMR and computer system down and not working. Will administer medication as soon as the computer system and EMR works again. Will continue plan of care.
--- NOTE | 2019-11-02 19:25 | NUR ---
NURSE NOTES: Administered 1800 medication and Tylenol as soon as the computer system and EMR starts working again. Will closely monitor the patient. Will continue plan of care.
[2019-11-02] MEDS: Entacapone 200mg tab ORAL SCH (19:26)
--- NOTE | 2019-11-02 19:30 | NUR ---
HAND-OFF: Report given to SRIKANTH Pastor and SRIKANTH Crabtree. The patient is stable at this time. Endorsed plan of care.
--- NOTE | 2019-11-02 19:39 | NUR ---
NURSE NOTES: Received report from SRIKANTH Coelho. Patient is resting on the bed without acute distress or shortness of breath. The patient's GJ tube intact and patent. The patient is on Osmolite @20mL/hr with goal of 40mL/hr. The patient has Bailey that is intact and patent and draining by gravity. IV, R AC 22G that is intact and patent and kept TKO. Will monitor the patient. Will continue plan of care.
[2019-11-02] MEDS: Sennosides 8.6mg tab GT SCH (20:44)
[2019-11-02] MEDS: Donepezil 10mg tab GT SCH (20:46)
[2019-11-02] MEDS: metroNIDAZOLE 500mg tab ORAL SCH (22:22)
[2019-11-03] VITALS: BP 106/55
[2019-11-03] MEDS: oxyCODONE 5mg IR tab GT SCH ×6 (01:00→21:00)
--- NOTE | 2019-11-03 02:00 | NUR ---
NURSE NOTES: No acute distress noted at this time. SR on bus driver/monitor. Tolerating well with current vent setting. Reposition done. Oral care given. Will continue to monitor.
[2019-11-03 04:00] VITALS: BP 120/62
[2019-11-03 05:00] LABS: HEMATOCRIT 24.5 % (37.0-47.0); HEMOGLOBIN 8.4 G/DL (12.0-16.0); MEAN CORPUSCULAR VOLUME 84 FL (80-99); PLATELET COUNT 44 K/UL (150-450); RED BLOOD COUNT 2.91 M/UL (4.20-5.40); RED CELL DISTRIBUTION WIDTH 14.8 % (11.6-14.8)
[2019-11-03] MEDS: metroNIDAZOLE 500mg tab ORAL SCH ×3 (05:03→22:00)
[2019-11-03 05:48] LABS: ALANINE AMINOTRANSFERASE < 6 U/L (12-78); ALBUMIN 1.9 G/DL (3.4-5.0); ALBUMIN/GLOBULIN RATIO 0.5 (1.0-2.7); ALKALINE PHOSPHATASE 55 U/L (46-116); ANION GAP 10 mmol/L (5-15); ASPARTATE AMINO TRANSFERASE 24 U/L (15-37); BILIRUBIN,TOTAL 0.4 MG/DL (0.2-1.0); BLOOD UREA NITROGEN 17 mg/dL (7-18); CARBON DIOXIDE 23 MMOL/L (21-32); CHLORIDE 105 MMOL/L (98-107); CREATININE 0.6 MG/DL (0.55-1.30); POTASSIUM 3.4 MMOL/L (3.5-5.1); SODIUM 138 MMOL/L (136-145)
[2019-11-03] MEDS ORDERED: Heparin1,000 units/500ml Premix(Conc:2 units/ml) IV PRN (07:00)
[2019-11-03] MEDS ORDERED: Lidocaine 1% Plain 30 ml INJ PRN (07:00)
--- NOTE | 2019-11-03 07:38 | NUR ---
HAND-OFF: Report given to SRIKANTH Ochoa.
--- NOTE | 2019-11-03 07:40 | NUR ---
NURSE NOTES: Report received from Darby Tinsley RN.Pt resting in bed asleep noted no resp distress with trach tube to vent,ordered vent settings tolerated,no signs of pain or discomfort S-R on the monitor,GTF Osmolite at 35 ml /hr,goal is 40 ml/hr,no residual noted,abd noted distended,Bailey cath draining yellow urine,skin warm and dry IV site to lt foot intact,SR up x2 ,HOB elevated,bed lock in lowest position will continue with plans of care.
[2019-11-03 08:00] VITALS: BP 138/62
--- NOTE | 2019-11-03 10:00 | NUR ---
NURSE NOTES: Oral care done Tracheal/oral secretions suctioned PRN.Pt turned and repositioned.
--- NOTE | 2019-11-03 10:16 | Diagnostic Imaging Report ---
Indication: Shortness of breath Technique: One view of the chest Comparison: 11/01/2019 Findings: Inspiration is suboptimal. Interim development of opacity of the left mid and lower lung. The left hemidiaphragm is obscured. Right lung is probably clear, although there is crowding of bronchovascular lung volumes. Tracheostomy remains. Impression: Since 11/01/2019, interim development of left mid and lower lung infiltrates versus edema and possibly pleural fluid
[2019-11-03] MEDS: Ascorbic Acid 500mg tab GT SCH (10:26)
[2019-11-03] MEDS: Docusate 100mg/10ml Liq GT SCH (10:26)
[2019-11-03] MEDS: Levodopa/Carbidopa 25/100 tab GT SCH ×4 (10:27→21:00)
[2019-11-03] MEDS: Allopurinol 100mg Tab GT SCH ×3 (10:28→18:00)
[2019-11-03] MEDS: Multivitamins W/Minerals 15 ML UDC GT SCH (10:33)
[2019-11-03] MEDS: Entacapone 200mg tab ORAL SCH ×3 (10:33→19:00)
--- NOTE | 2019-11-03 11:34 | Surgery Progress Note ---
Surgery Progress Note Subjective Additional Comments leukocytosis anemia ill appearing exam unchanged imaging reviewed Objective Last 24 Hour Vital Signs Date Time Temp Pulse Resp B/P (MAP) Pulse Ox O2 Delivery O2 Flow Rate FiO2 11/03/19 08:00 40 11/03/19 08:00 98.6 92 26 138/62 (87) 100 11/03/19 07:24 96 22 40 11/03/19 04:00 Mechanical Ventilator 11/03/19 04:00 98.1 68 23 120/62 (81) 98 11/03/19 04:00 40 11/03/19 04:00 89 11/03/19 03:11 75 28 40 11/03/19 00:00 Mechanical Ventilator 11/03/19 00:00 83 11/03/19 00:00 97.9 82 22 106/55 (72) 93 11/02/19 22:36 85 24 40 11/02/19 20:00 Mechanical Ventilator 11/02/19 20:00 98.2 87 25 150/65 (93) 100 11/02/19 20:00 92 11/02/19 20:00 40 11/02/19 19:57 99.5 11/02/19 19:30 86 23 40 11/02/19 18:00 Mechanical Ventilator 11/02/19 16:00 Mechanical Ventilator 11/02/19 16:00 30 11/02/19 16:00 92 11/02/19 16:00 100.0 98 20 132/68 (89) 100 11/02/19 15:26 Mechanical Ventilator 11/02/19 15:06 92 24 30 11/02/19 12:00 Mechanical Ventilator 11/02/19 12:00 30 11/02/19 11:36 101 I&O Intake and Output 11/02/19 11/03/19 19:00 07:00 Intake Total 150 ml 465 ml Output Total 600 ml 350 ml Balance -450 ml 115 ml Intake Free Water 50 ml 100 ml IV Total 100 ml Tube Feeding 100 ml 265 ml Output Urine Total 600 ml 350 ml # Bowel Movements 2 1 Dressing: dry Wound: other Drains: other Cardiovascular: RSR Respiratory: decreased breath sounds Abdomen: soft, present bowel sounds Extremities: no cyanosis Laboratory Tests Test 11/03/19 03:15 White Blood Count 28.0 K/UL (4.8-10.8) #*H Red Blood Count 2.91 M/UL (4.20-5.40) L Hemoglobin 8.4 G/DL (12.0-16.0) L Hematocrit 24.5 % (37.0-47.0) L Mean Corpuscular Volume 84 FL (80-99) Mean Corpuscular Hemoglobin 28.9 PG (27.0-31.0) Mean Corpuscular Hemoglobin Concent 34.2 G/DL (32.0-36.0) Red Cell Distribution Width 14.8 % (11.6-14.8) Platelet Count 44 K/UL (150-450) L Mean Platelet Volume 12.4 FL (6.5-10.1) H Neutrophils (%) (Auto) % (45.0-75.0) Lymphocytes (%) (Auto) % (20.0-45.0) Monocytes (%) (Auto) % (1.0-10.0) Eosinophils (%) (Auto) % (0.0-3.0) Basophils (%) (Auto) % (0.0-2.0) Differential Total Cells Counted 100 Neutrophils % (Manual) 10 % (45-75) L Lymphocytes % (Manual) 19 % (20-45) L Monocytes % (Manual) 6 % (1-10) Eosinophils % (Manual) 3 % (0-3) Basophils % (Manual) 1 % (0-2) Blast Cells % 61 % (0-0) *H Band Neutrophils 0 % (0-8) Platelet Estimate Decreased L Platelet Morphology Normal Polychromasia 1+ Hypochromasia 2+ Anisocytosis 1+ Spherocytes 1+ Sodium Level 138 MMOL/L (136-145) Potassium Level 3.4 MMOL/L (3.5-5.1) L Chloride Level 105 MMOL/L (98-107) Carbon Dioxide Level 23 MMOL/L (21-32) Anion Gap 10 mmol/L (5-15) Blood Urea Nitrogen 17 mg/dL (7-18) Creatinine 0.6 MG/DL (0.55-1.30) Estimat Glomerular Filtration Rate > 60 mL/min (>60) Glucose Level 127 MG/DL (74-106) H Calcium Level 8.0 MG/DL (8.5-10.1) L Total Bilirubin 0.4 MG/DL (0.2-1.0) Aspartate Amino Transf (AST/SGOT) 24 U/L (15-37) Alanine Aminotransferase (ALT/SGPT) < 6 U/L (12-78) L Alkaline Phosphatase 55 U/L (46-116) Total Protein 5.5 G/DL (6.4-8.2) L Albumin 1.9 G/DL (3.4-5.0) L Globulin 3.6 g/dL Albumin/Globulin Ratio 0.5 (1.0-2.7) L Plan Problems: (1) Decubitus skin ulcer Assessment & Plan: Pt presented on admission with multiple Pressure Injuries, and contractures. Large Soft Mass noted to lateral R chest ,just inferior to Breast.Soft mass that uis violaceous and denuded. Unstageable Pressure injury R thoracic. Wound presents as partially opened DTPI( L)6cm x (W)8.5cm. 95% Soft eschar flap,5% dee. Marginal erythema along borders In addition scattered linear and purple area periwound. Full thickness stage 4 Sacral Pressure Injury(L)9.3cm x (W)8.7cm. Base of wound is 95% necrotic,but bone is palpable.Mild odor noted. No exudate noted. Non-blanching erythema periwound. Unstageable Pressure Injury R trochanter(L)3.5cm x (W)4.2cm. Base of wound is 90 % soft eschar, 10% pink epithelial. Edges adherent to base of wound .No erythema induration or fluctuance periwound. Unstageable Pressure injury R Ischium(L)3.5cm x (W)2.5cm. Dry eschar at base of wound, edges are adherent with surrounding pink epithelial. No erythema or induration periwound. DTPI L trochanter(L)4cm x (W)1cm. Stable dry eschar L Hallux(L)1.6cm x (W)2cm.NO erythema fluctuance or induration periwound. L 1st metatarsal TMA noted. Stable dry eschar distal/lateral L foot (L)1.5cm x (W)3cm. No erythema, induration or fluctuance periwound. DTPI noted to plantar L foot.(L)0.9cm x (W)0.9cm. Base of wound is fluctuant, purple with maroon borders. Unstageable Pressure injury L lateral Malleolus. Stable dry eschar noted.No erythema or induration periwound. L heel is boggy with non-blanching erythema. Unstageable Pressure injury R Hallux and plantar aspect(L)3.5cm x (W)3.4cm. Soft eschar at base of wound with marginal erythema along borders. R heel is boggy with Non-Blanching erythema. Unstageable Presure injury distal/Lateral R foot . Stable dry eschar noted . No erythema of fluctuance periwound. Tx.Plan: Cleanse Sacral Wound with Saline. Loosely pack with Therahoney impregnated Kerlix.Applpy Moisture Barrier Paste periwound. Cover with Optifoam drsg. Change Daily and prn. Cleanse Soft Mass R chest with Saline. Cover with Optifoam drsg. Change Daily and prn. Cleanse wounds R trochanter, R Ischium with Saline. Apply Moisture Barrier Paste.Cover with Optifoam drsg. Change every 3 days and prn. Apply Moisture Barrier to L trochanter. Cvoer with Optifoam drsg. Change every 3 days and prn. Apply Betadine to wounds R and L foot. Cover each wound with Optifoam drsg. Changee very 3 days and prn. Apply Cavilon Skin Barrier to both heels. Cover each heel with Optifoam drsg. Change every 7 days and prn. APM/ANA Mattress overlay. turn q2h nutritional optimization (2) Malnutrition Assessment & Plan: DAILY ESTIMATED NEEDS: Needs based on Critical care, wounds, 64kg 22-28 kcals/kg 0386-2934 total kcals 1.25-2 g protein/kg 80-128 g total protein 25-30 mL/kg 1680-9511 total fluid mLs NUTRITION DIAGNOSIS: Swallowing difficulty r/t respiratory status as evidenced by pt is trach and peg dep. CURRENT TF:Osmolite 1.5 @40 ml/hr x24 hrs ENTERAL NUTRITION RECOMMENDATIONS: VITAL AF 1.2 goal of 55ml/hr x24 hrs to provide 1320ml, 1584 kcal, 99g pro, 1071ml free H2O -> [employer] pt on elemental formula-> rec VITAL AF for critical care, high protein and hydrolyzed proteins. - Start @25ml/hr for 6 hrs, advance as tolerated 10ml/hr q4-6 hrs to goal - Flush per MD Jacqueline SCHNEIDER over 30 degrees ADDITIONAL RECOMMENDATIONS: 1) Per SNF: 65 inches (5'5"); 141 lbs (64.1kg) 2) TF recs as above 3) F/up w/ WC eval -> add MEIR BID via GT (3) Anemia Assessment & Plan: transfused trend labs no active bleeding stool study GI eval (4) UTI (urinary tract infection) (5) Tracheostomy dependence Assessment & Plan: Findings: The left hemidiaphragm is elevated. Atelectatic changes are present in the left lung base. There is minimal right basilar atelectasis. No definite infiltrates. There is a tracheostomy. Impression: Elevated left hemidiaphragm with considerable left basilar atelectasis. Less extensive right basilar atelectasis. Inspiration is suboptimal. Interim development of opacity of the left mid and lower lung. The left hemidiaphragm is obscured. Right lung is probably clear , although there is crowding of bronchovascular lung volumes. Tracheostomy remains. Impression: Since 11/01/2019, interim development of left mid and lower lung infiltrates versus edema and possibly pleural fluid Juan Houser Nov 03, 2019 11:34
[2019-11-03 12:00] VITALS: BP 91/65
--- NOTE | 2019-11-03 12:00 | NUR ---
NURSE NOTES: Seen by wound care nurse Toñito,wound assessed and covered with optifoam drsg.
--- NOTE | 2019-11-03 13:04 | Internal Med Progress Note ---
Subjective Date of Service: Nov 03, 2019 Physician Name Fredrick Prince Attending Physician Fredrick Prince MD Current Medications Medications (Trade) Dose Ordered Sig/Inna Route PRN Reason Start Time Stop Time Status Last Admin Dose Admin Acetaminophen (Tylenol) 650 mg Q4H PRN NG fever 100.4, mild pain 11/01/19 23:15 12/01/19 23:14 11/02/19 19:27 Allopurinol (Zyloprim) 100 mg TID GT 11/02/19 09:00 12/02/19 08:59 11/03/19 10:28 Ascorbic Acid (Vitamin C) 500 mg DAILY GT 11/02/19 09:00 12/02/19 08:59 11/03/19 10:26 Carbidopa/Levodopa (Sinemet 25/100) 2 tab QID GT 11/02/19 09:00 12/02/19 08:59 11/03/19 10:27 Cefepime HCl 2 gm/ Dextrose 100 ml @ 200 mls/hr Q12HR IVPB 11/02/19 21:00 11/09/19 20:59 11/03/19 10:34 Chlorhexidine Gluconate (Josefa-Hex 2%) 1 applic DAILY@2000 TOPIC 11/03/19 20:00 02/01/20 19:59 Daptomycin 500 mg/ Sodium Chloride 50 ml @ 100 mls/hr Q24H IV 11/02/19 16:00 11/09/19 15:59 11/02/19 15:50 Docusate Sodium (Colace) 100 mg DAILY GT 11/02/19 09:00 12/02/19 08:59 11/03/19 10:26 Donepezil HCl (Aricept) 10 mg QHS GT 11/02/19 21:00 12/02/19 20:59 11/02/19 20:46 Entacapone (Comtan) 400 mg THREE TIMES A DAY ORAL 11/02/19 18:00 12/02/19 17:59 11/03/19 10:33 Heparin Sodium/ Sodium Chloride (Heparin 1000 units/500ml Premix) 1,000 unit ONCE PRN IV Radiology Use 11/03/19 07:00 11/05/19 06:59 Lansoprazole (Prevacid) 30 mg BID GT 11/02/19 09:00 12/02/19 08:59 11/03/19 10:27 Lidocaine HCl (Xylocaine 1% 30ml) 30 ml ONCE PRN INJ Radiology Use 11/03/19 07:00 11/05/19 06:59 Metoclopramide HCl (Reglan) 5 mg Q6H PRN IVP nausea or vomiting 11/01/19 23:15 12/01/19 23:14 11/02/19 12:51 Metronidazole (Flagyl) 500 mg EVERY 8 HOURS ORAL 11/02/19 22:00 11/09/19 21:59 11/03/19 05:03 Morphine Sulfate (Morphine Sulfate) 2 mg Q3H PRN IVP Moderate Pain (Pain Scale 4-6) 11/02/19 08:36 11/09/19 08:35 Multivitamins (Multivitamins W/ Minerals 15ml Liquid) 15 ml DAILY GT 11/02/19 09:00 12/02/19 08:59 11/03/19 10:33 Ondansetron HCl (Zofran) 4 mg Q4H PRN IVP Nausea & Vomiting 11/01/19 23:15 12/01/19 23:14 Oxycodone HCl (Roxicodone) 10 mg Q4HR GT 11/02/19 09:00 11/09/19 08:59 11/03/19 10:28 Polyethylene Glycol (Miralax) 17 gm DAILY PRN GT Constipation 11/02/19 08:30 12/02/19 07:59 Potassium Chloride (K-Dur) 20 meq Q4H ORAL 11/03/19 08:00 11/03/19 16:01 11/03/19 10:26 Quetiapine Fumarate (SEROqueL) 50 mg QHS GT 11/02/19 21:00 12/17/19 20:59 11/02/19 20:46 Sennosides (Senokot) 8.6 mg QHS GT 11/02/19 21:00 12/02/19 20:59 11/02/19 20:44 Allergies: Coded Allergies: PENICILLINS (Verified Allergy, Unknown, 11/01/19) VANCOMYCIN (Verified Allergy, Unknown, 11/01/19) Uncoded Allergies: PENICI (Allergy, Unknown, 11/01/19) ROS Limited/Unobtainable: Yes Subjective non verbal, chronic trach wbc rised +GPC in blood Objective Last Vital Signs Date Time Temp Pulse Resp B/P (MAP) Pulse Ox O2 Delivery O2 Flow Rate FiO2 11/03/19 12:00 99.5 101 28 91/65 (74) 99 11/03/19 12:00 40 11/03/19 12:00 Mechanical Ventilator General Appearance: no apparent distress, other - trach on ventilator Neck: normal inspection Cardiovascular: normal rate, regular rhythm Respiratory/Chest: rhonchi - bilaterally Abdomen: normal bowel sounds, non tender, soft, other - +PEG Genitourinary/Rectal: other - +dong Extremities: other - +contracture Edema: other Neurologic: other - non verbal, advanced dementia Skin: warm/dry, other - unstageable pressure wound Laboratory Tests Test 11/03/19 03:15 White Blood Count 28.0 K/UL (4.8-10.8) #*H Red Blood Count 2.91 M/UL (4.20-5.40) L Hemoglobin 8.4 G/DL (12.0-16.0) L Hematocrit 24.5 % (37.0-47.0) L Mean Corpuscular Volume 84 FL (80-99) Mean Corpuscular Hemoglobin 28.9 PG (27.0-31.0) Mean Corpuscular Hemoglobin Concent 34.2 G/DL (32.0-36.0) Red Cell Distribution Width 14.8 % (11.6-14.8) Platelet Count 44 K/UL (150-450) L Mean Platelet Volume 12.4 FL (6.5-10.1) H Neutrophils (%) (Auto) % (45.0-75.0) Lymphocytes (%) (Auto) % (20.0-45.0) Monocytes (%) (Auto) % (1.0-10.0) Eosinophils (%) (Auto) % (0.0-3.0) Basophils (%) (Auto) % (0.0-2.0) Differential Total Cells Counted 100 Neutrophils % (Manual) 10 % (45-75) L Lymphocytes % (Manual) 19 % (20-45) L Monocytes % (Manual) 6 % (1-10) Eosinophils % (Manual) 3 % (0-3) Basophils % (Manual) 1 % (0-2) Blast Cells % 61 % (0-0) *H Band Neutrophils 0 % (0-8) Platelet Estimate Decreased L Platelet Morphology Normal Polychromasia 1+ Hypochromasia 2+ Anisocytosis 1+ Spherocytes 1+ Sodium Level 138 MMOL/L (136-145) Potassium Level 3.4 MMOL/L (3.5-5.1) L Chloride Level 105 MMOL/L (98-107) Carbon Dioxide Level 23 MMOL/L (21-32) Anion Gap 10 mmol/L (5-15) Blood Urea Nitrogen 17 mg/dL (7-18) Creatinine 0.6 MG/DL (0.55-1.30) Estimat Glomerular Filtration Rate > 60 mL/min (>60) Glucose Level 127 MG/DL (74-106) H Calcium Level 8.0 MG/DL (8.5-10.1) L Total Bilirubin 0.4 MG/DL (0.2-1.0) Aspartate Amino Transf (AST/SGOT) 24 U/L (15-37) Alanine Aminotransferase (ALT/SGPT) < 6 U/L (12-78) L Alkaline Phosphatase 55 U/L (46-116) Total Protein 5.5 G/DL (6.4-8.2) L Albumin 1.9 G/DL (3.4-5.0) L Globulin 3.6 g/dL Albumin/Globulin Ratio 0.5 (1.0-2.7) L Microbiology Date/Time Source Procedure Growth Status 11/02/19 20:10 Blood Blood Culture - Preliminary Resulted 11/01/19 11:30 Blood Blood Culture - Preliminary NO GROWTH AFTER 24 HOURS Resulted 11/01/19 11:15 Blood Blood Culture - Preliminary Gram Positive Cocci Resulted 11/01/19 11:45 Urine,Clean Catch Urine Culture - Preliminary Gram Negative Bacillus 1 Resulted 11/01/19 16:30 Rectum Received Intake and Output 11/02/19 11/03/19 19:00 07:00 Intake Total 150 ml 465 ml Output Total 600 ml 350 ml Balance -450 ml 115 ml Intake Free Water 50 ml 100 ml IV Total 100 ml Tube Feeding 100 ml 265 ml Output Urine Total 600 ml 350 ml # Bowel Movements 2 1 Assessment/Plan Status: stable, progressing Assessment/Plan Impression: 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 Fredrick Prince MD Nov 03, 2019 13:04
--- NOTE | 2019-11-03 14:57 | NUR ---
NURSE NOTES:WOUND CARE NOTES:Pt presented on admission with multiple Pressure Injuries, and contractures. Large Soft Mass noted to lateral R chest ,just inferior to Breast.Soft mass that uis violaceous and denuded. Unstageable Pressure injury R thoracic. Wound presents as partially opened DTPI(L)6cm x (W)8.5cm. 95% Soft eschar flap,5% dee. Marginal erythema along borders In addition scattered linear and purple area periwound. Full thickness Sacral Pressure Injury(L)9.3cm x (W)8.7cm. Base of wound is 95% necrotic,but bone is palpable.Mild odor noted. No exudate noted. Non-blanching erythema periwound. Unstageable Pressure Injury R trochanter(L)3.5cm x (W)4.2cm. Base of wound is 90% soft eschar, 10% pink epithelial. Edges adherent to base of wound .No erythema induration or fluctuance periwound. Unstageable Pressure injury R Ischium(L)3.5cm x (W)2.5cm. Dry eschar at base of wound, edges are adherent with surrounding pink epithelial. No erythema or induration periwound. DTPI L trochanter(L)4cm x (W)1cm. Stable dry eschar L Hallux(L)1.6cm x (W)2cm.NO erythema fluctuance or induration periwound. L 1st metatarsal TMA noted. Stable dry eschar distal/lateral L foot (L)1.5cm x (W)3cm. No erythema,induration or fluctuance periwound. DTPI noted to plantar L foot.(L)0.9cm x (W)0.9cm. Base of wound is fluctuant,purple with maroon borders. Unstageable Pressure injury L lateral Malleolus. Stable dry eschar noted.No erythema or induration periwound. L heel is boggy with non-blanching erythema. Unstageable Pressure injury R Hallux and plantar aspect(L)3.5cm x (W)3.4cm. Soft eschar at base of wound with marginal erythema along borders. R heel is boggy with Non-Blanching erythema. Unstageable Presure injury distal/Lateral R foot . Stable dry eschar noted . No erythema of fluctuance periwound. Tx.Plan: Cleanse Sacral Wound with Saline. Loosely pack with Therahoney impregnated Kerlix.Applpy Moisture Barrier Paste periwound. Cover with Optifoam drsg. Change Daily and prn. Cleanse Soft Mass R chest with Saline. Cover with Optifoam drsg. Change Daily and prn. Cleanse wounds R trochanter, R Ischium with Saline. Apply Moisture Barrier Paste.Cover with Optifoam drsg. Change every 3 days and prn. Apply Moisture Barrier to L trochanter. Cvoer with Optifoam drsg. Change every 3 days and prn. Apply Betadine to wounds R and L foot. Cover each wound with Optifoam drsg. Changee very 3 days and prn. Apply Cavilon Skin Barrier to both heels. Cover each heel with Optifoam drsg. Change every 7 days and prn. APM/ANA Mattress overlay.
[2019-11-03 16:00] VITALS: BP 128/59
[2019-11-03] MEDS: DAPTOmycin 500 MG in NS 50 ML IV SCH (16:31)
--- NOTE | 2019-11-03 17:00 | NUR ---
NURSE NOTES: Pt resting in bed ,no change in pt's status,stable.
--- NOTE | 2019-11-03 19:15 | NUR ---
RESPIRATORY NOTE: PT RECEIVED STABLE ON CMV WITH CURRENT SETTINGS. AIRWAY IS SECURE AND PATENT. ALARMS ARE ON AND AUDIBLE. VENT CIRCUIT IS SECURE AND OUT OF THE WAY. NO S/S OF RESPIRATORY DISTRESS NOTED AT THIS TIME. WILL CONTINUE TO MONITOR.
--- NOTE | 2019-11-03 19:20 | NUR ---
NURSE NOTES: Received pt from Raghu Masters RN. pt observed in bed, obtunded, unable to make needs known; no s/sx of pain noted at this time. trach to vent settings are as follows: Shiley: 6, AC: 20, VT: 400, FiO2: 40%, PEEP: 5. tolerating well, saturation: 100%, no s/sx of respiratory distress noted. G-tube noted to be dislodged. feeding stopped immediately and G-tube site covered with gauze and taped. abdomen noted to be distended. will inform Dr. Prince. F/C is patent and intact, draining well to gravity. Left foot 18 G IV site is patent and intact, asymptomatic. bed bath provided, X1 BM noted. new gown and linens applied. bed in lowest position and locked, siderails up X3, all needs attended to. will continue to monitor.
--- NOTE | 2019-11-03 19:21 | NUR ---
HAND-OFF: Report given Micheal Long RN..
[2019-11-03 20:00] VITALS: BP 109/52
[2019-11-03] MEDS: Dyna-Hex 2% Top Sol 2oz TOPIC SCH (20:00)
--- NOTE | 2019-11-03 20:19 | Infectious Diseases Prog Note ---
Assessment/Plan Assessment/Plan Full consult dictated: A) 1) gram neg uti, sepsis, fevers, extensive sacral wound, leukocytosis, gram + bc 2) pmh noted 3) allergies - nkda P) 1) daptomycin, cefepime, flagyl, add amikacin 2) check cultures, labs and chest x-ray 3) wound management per surgery 4) check echo 5) will f/u Subjective Constitutional: Reports: fever HEENT: Reports: congestion Respiratory: Reports: shortness of breath Allergies: Coded Allergies: PENICILLINS (Verified Allergy, Unknown, 11/01/19) VANCOMYCIN (Verified Allergy, Unknown, 11/01/19) Uncoded Allergies: PENICI (Allergy, Unknown, 11/01/19) Objective Vital Signs Last 24 Hour Vital Signs Date Time Temp Pulse Resp B/P (MAP) Pulse Ox O2 Delivery O2 Flow Rate FiO2 11/03/19 16:00 Mechanical Ventilator 11/03/19 16:00 40 11/03/19 16:00 100.8 101 27 128/59 (82) 99 11/03/19 16:00 103 11/03/19 15:24 102 25 40 11/03/19 12:00 99.5 101 28 91/65 (74) 99 11/03/19 12:00 40 11/03/19 12:00 Mechanical Ventilator 11/03/19 11:56 99 11/03/19 10:30 98 27 40 11/03/19 08:00 40 11/03/19 08:00 91 11/03/19 08:00 98.6 92 26 138/62 (87) 100 11/03/19 08:00 Mechanical Ventilator 11/03/19 07:24 96 22 40 11/03/19 04:00 Mechanical Ventilator 11/03/19 04:00 98.1 68 23 120/62 (81) 98 11/03/19 04:00 40 11/03/19 04:00 89 11/03/19 03:11 75 28 40 11/03/19 00:00 Mechanical Ventilator 11/03/19 00:00 83 11/03/19 00:00 97.9 82 22 106/55 (72) 93 11/02/19 22:36 85 24 40 Height (Feet): 5 Height (Inches): 4.00 Weight (Pounds): 153 HEENT: normocephalic, atraumatic, anicteric Cardiovascular: normal rate, regular rhythm Abdomen: normal bowel sounds, soft, non tender, no organomegaly Genitourinary: other - + dong Microbiology Date/Time Source Procedure Growth Status 11/02/19 20:10 Blood Blood Culture - Preliminary Resulted 11/01/19 11:30 Blood Blood Culture - Preliminary NO GROWTH AFTER 24 HOURS Resulted 11/01/19 11:15 Blood Blood Culture - Preliminary Gram Positive Cocci Resulted 11/01/19 11:45 Urine,Clean Catch Urine Culture - Preliminary Gram Negative Bacillus 1 Resulted 11/01/19 16:30 Rectum Received Laboratory Tests Test 11/03/19 03:15 White Blood Count 28.0 K/UL (4.8-10.8) #*H Red Blood Count 2.91 M/UL (4.20-5.40) L Hemoglobin 8.4 G/DL (12.0-16.0) L Hematocrit 24.5 % (37.0-47.0) L Mean Corpuscular Volume 84 FL (80-99) Mean Corpuscular Hemoglobin 28.9 PG (27.0-31.0) Mean Corpuscular Hemoglobin Concent 34.2 G/DL (32.0-36.0) Red Cell Distribution Width 14.8 % (11.6-14.8) Platelet Count 44 K/UL (150-450) L Mean Platelet Volume 12.4 FL (6.5-10.1) H Neutrophils (%) (Auto) % (45.0-75.0) Lymphocytes (%) (Auto) % (20.0-45.0) Monocytes (%) (Auto) % (1.0-10.0) Eosinophils (%) (Auto) % (0.0-3.0) Basophils (%) (Auto) % (0.0-2.0) Differential Total Cells Counted 100 Neutrophils % (Manual) 10 % (45-75) L Lymphocytes % (Manual) 19 % (20-45) L Monocytes % (Manual) 6 % (1-10) Eosinophils % (Manual) 3 % (0-3) Basophils % (Manual) 1 % (0-2) Blast Cells % 61 % (0-0) *H Band Neutrophils 0 % (0-8) Platelet Estimate Decreased L Platelet Morphology Normal Polychromasia 1+ Hypochromasia 2+ Anisocytosis 1+ Spherocytes 1+ Sodium Level 138 MMOL/L (136-145) Potassium Level 3.4 MMOL/L (3.5-5.1) L Chloride Level 105 MMOL/L (98-107) Carbon Dioxide Level 23 MMOL/L (21-32) Anion Gap 10 mmol/L (5-15) Blood Urea Nitrogen 17 mg/dL (7-18) Creatinine 0.6 MG/DL (0.55-1.30) Estimat Glomerular Filtration Rate > 60 mL/min (>60) Glucose Level 127 MG/DL (74-106) H Calcium Level 8.0 MG/DL (8.5-10.1) L Total Bilirubin 0.4 MG/DL (0.2-1.0) Aspartate Amino Transf (AST/SGOT) 24 U/L (15-37) Alanine Aminotransferase (ALT/SGPT) < 6 U/L (12-78) L Alkaline Phosphatase 55 U/L (46-116) Total Protein 5.5 G/DL (6.4-8.2) L Albumin 1.9 G/DL (3.4-5.0) L Globulin 3.6 g/dL Albumin/Globulin Ratio 0.5 (1.0-2.7) L Current Medications Medications (Trade) Dose Ordered Sig/Inna Route PRN Reason Start Time Stop Time Status Last Admin Dose Admin Acetaminophen (Tylenol) 650 mg Q4H PRN NG fever 100.4, mild pain 11/01/19 23:15 12/01/19 23:14 11/02/19 19:27 Allopurinol (Zyloprim) 100 mg TID GT 11/02/19 09:00 12/02/19 08:59 11/03/19 18:00 Ascorbic Acid (Vitamin C) 500 mg DAILY GT 11/02/19 09:00 12/02/19 08:59 11/03/19 10:26 Carbidopa/Levodopa (Sinemet 25/100) 2 tab QID GT 11/02/19 09:00 12/02/19 08:59 11/03/19 19:01 Cefepime HCl 2 gm/ Dextrose 100 ml @ 200 mls/hr Q12HR IVPB 11/02/19 21:00 11/09/19 20:59 11/03/19 10:34 Chlorhexidine Gluconate (Josefa-Hex 2%) 1 applic DAILY@2000 TOPIC 11/03/19 20:00 02/01/20 19:59 Daptomycin 500 mg/ Sodium Chloride 50 ml @ 100 mls/hr Q24H IV 11/02/19 16:00 11/09/19 15:59 11/03/19 16:31 Docusate Sodium (Colace) 100 mg DAILY GT 11/02/19 09:00 12/02/19 08:59 11/03/19 10:26 Donepezil HCl (Aricept) 10 mg QHS GT 11/02/19 21:00 12/02/19 20:59 11/02/19 20:46 Entacapone (Comtan) 400 mg THREE TIMES A DAY ORAL 11/02/19 18:00 12/02/19 17:59 11/03/19 19:00 Heparin Sodium/ Sodium Chloride (Heparin 1000 units/500ml Premix) 1,000 unit ONCE PRN IV Radiology Use 11/03/19 07:00 11/05/19 06:59 Lansoprazole (Prevacid) 30 mg BID GT 11/02/19 09:00 12/02/19 08:59 11/03/19 18:00 Lidocaine HCl (Xylocaine 1% 30ml) 30 ml ONCE PRN INJ Radiology Use 11/03/19 07:00 11/05/19 06:59 Metoclopramide HCl (Reglan) 5 mg Q6H PRN IVP nausea or vomiting 11/01/19 23:15 12/01/19 23:14 11/02/19 12:51 Metronidazole (Flagyl) 500 mg EVERY 8 HOURS ORAL 11/02/19 22:00 11/09/19 21:59 11/03/19 13:30 Morphine Sulfate (Morphine Sulfate) 2 mg Q3H PRN IVP Moderate Pain (Pain Scale 4-6) 11/02/19 08:36 11/09/19 08:35 Multivitamins (Multivitamins W/ Minerals 15ml Liquid) 15 ml DAILY GT 11/02/19 09:00 12/02/19 08:59 11/03/19 10:33 Ondansetron HCl (Zofran) 4 mg Q4H PRN IVP Nausea & Vomiting 11/01/19 23:15 12/01/19 23:14 Oxycodone HCl (Roxicodone) 10 mg Q4HR GT 11/02/19 09:00 11/09/19 08:59 11/03/19 13:29 Polyethylene Glycol (Miralax) 17 gm DAILY PRN GT Constipation 11/02/19 08:30 12/02/19 07:59 Quetiapine Fumarate (SEROqueL) 50 mg QHS GT 11/02/19 21:00 12/17/19 20:59 11/02/19 20:46 Sennosides (Senokot) 8.6 mg QHS GT 11/02/19 21:00 12/02/19 20:59 11/02/19 20:44 González Yadav MD Nov 03, 2019 20:19
[2019-11-03] MEDS ORDERED: Amikacin Rx to dose MISC PRN (20:30)
--- NOTE | 2019-11-03 20:35 | NUR ---
NURSE NOTES: called and informed Dr. Prince of pt's dislodged G-tube. order received to consult Dr. Reeves per Dr. Prince.
--- NOTE | 2019-11-03 20:45 | NUR ---
NURSE NOTES: called and informed Dr. Reeves of pt's dislodged G-tube and distended abdomen. per Dr. Reeves, will assess and call pt's family for consent tomorrow morning.
--- NOTE | 2019-11-03 20:50 | NUR ---
NURSE NOTES: called and spoke to Dr. Prince to request fluids d/t NPO status/held feeding. new orders received and will be carried out.
[2019-11-03] MEDS: Sennosides 8.6mg tab GT SCH (21:00)
[2019-11-03] MEDS: Donepezil 10mg tab GT SCH (21:00)
[2019-11-03] MEDS: D5NS 1,000 ML IV SCH (21:09)
[2019-11-03] MEDS ORDERED: Amikacin 1,000 MG in NS 110 ML IV SCH (22:00)
[2019-11-04] VITALS: BP 107/50
--- NOTE | 2019-11-04 00:45 | Consultation ---
DATE OF CONSULTATION: 11/03/2019 INFECTIOUS DISEASE CONSULTATION CONSULTING PHYSICIAN: González Yadav MD. ATTENDING PHYSICIAN: Fredrick Prince MD. REFERRING PHYSICIAN: Fredrick Prince MD. REASON FOR CONSULTATION: Patient has gram-positive bacteremia. Patient has gram-negative UTI. Patient has sepsis, leukocytosis, fevers. Patient has pneumonia, sacral wound infection, fevers, leukocytosis. CHIEF COMPLAINT: Patient's chief complaint coming in to the hospital is anemia. 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 Patient has history of ovarian mass with neoplasm. Patient presents to [facility] with anemia requiring transfusion. Hemoglobin was 6.7 at the [facility] and here at [place], it was 6.5. Patient now has fevers, leukocytosis, and sepsis. Patient has blasts in the differential in CBC and as discussed has history of AML with elevated white count. Workup shows that patient has gram-positive bacteremia, gram-negative UTI. Infectious Disease consultation requested. Patient is currently on daptomycin, cefepime, and Flagyl. She also has pneumonia. Sputum cultures been ordered. Echo has been ordered. Because of the persistent fevers, I am going to add amikacin to the regimen. MAR was noted. Orders were noted. Notes and records reviewed. REVIEW OF SYSTEMS: Patient cannot give review of systems. She has trach, vent, respiratory failure.CONSTITUTIONAL: She has fevers. CARDIAC: No pressors. She is tachycardic. GASTROINTESTINAL: No nausea, vomiting, or diarrhea. GENITOURINARY: She has a Bailey. PULMONARY: On a vent and trach. SKIN: No new rash. NEUROLOGIC: No seizures. Review of systems is otherwise limited in this patient. She does have sacral wound. 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 She has history of ovarian mass with neoplasm, history of respiratory failure and trach, history of advanced Parkinson disease, dementia, aphagia, PEG, dysphagia, G-tube, pancytopenia, anemia. She has a history of sacral wound, history of malnutrition, quadriplegic, contractures. ALLERGIES: Include penicillin and vancomycin. SOCIAL HISTORY: Negative for smoking, alcohol, or drug abuse. FAMILY HISTORY: Noncontributory. No mention of tuberculosis or cancer. MEDICATIONS: Upon reviewing the MAR, she is on following medications. Getting chlorhexidine, heparin, Flagyl, cefepime, daptomycin, donepezil. I am adding amikacin. She is on oxycodone, carbidopa, allopurinol, multivitamins, docusate, lisinopril, acetaminophen, metoclopramide, Zofran. Outside medications were noted and reconciliated. PHYSICAL EXAMINATION: VITAL SIGNS: Temperature 100.8, pulse rate 101, respiratory rate 27, blood pressure 128/59, saturating 99%, FiO2 40%. GENERAL: Lethargic, weak. HEAD AND NECK: Trach intact. Normocephalic. No JVD. HEART: Regular. No gallop or murmur. Tachycardic. ABDOMEN: Soft. Positive bowel sounds. LUNGS: Bilateral rhonchi and rales. SKIN: No rash. She has extensive sacral wound with necrosis. MUSCULOSKELETAL: No effusions. Legs are without cellulitis. PERIPHERAL VASCULAR: No gangrene or cyanosis. GENITOURINARY: She has Bailey. Urine is cloudy. LINE SITES: Without phlebitis. NEUROLOGIC: General weakness, poorly responsive. Lethargic. Wounds were reviewed. Most extensive is the sacral wound that has necrosis. This is reviewed with the pictures. LABORATORY DATA: White count 28.0, hemoglobin 8.4, platelet count 44. Blasts 61%. Creatinine is 0.6. UA had 3+ leukocyte esterase, 10 to 15 white blood cells, many bacteria. Cultures, blood cultures multiple bottles of gram-positive cocci in clusters, identification is pending. Echo has been ordered. Urine culture with gram-negative bacilli, identification is pending. IMAGING STUDIES: Chest x-ray showed left mid and lower lung infiltrates that are new. Sputum cultures been ordered also. ASSESSMENT AND PLAN: 1. Patient has sepsis, fevers, leukocytosis. She does have AML with blasts that is not being treated also could increase the white count. Workup shows she has gram-negative UTI with sepsis and also gram-positive bacteremia with sepsis. At this time, we will continue daptomycin, cefepime, Flagyl, and add amikacin because of persistent fevers. She is at risk for MDR organisms with history of being at SNF and trach vent. At this time, we will continue daptomycin, cefepime, Flagyl, and amikacin to cover sepsis, fevers, leukocytosis, gram-negative UTI, and gram-positive bacteremia. Of note, she also has extensive sacral wound with necrosis and Surgery is following. In addition, she has a pneumonia likely aspiration and healthcare-acquired pneumonia. Continue antibiotics. Check cultures, laboratories, chest x-ray. Overall prognosis is poor with AML not being treated. I believe patient is a Do Not Resuscitate at this time. 2. Trach, vent respiratory failure. 3. Dysphagia, G-tube. 4. Anemia. 5. Thrombocytopenia. 6. Leukocytosis. 7. Malnutrition. 8. Ovarian mass with neoplasm. 9. Parkinson's. 10. Dementia. 11. Skin care per Surgery and protocol. 12. Allergies to penicillin, vancomycin. 13. Social history is negative. 14. Family history is noncontributory. 15. MAR was noted. 16. Case was discussed with RN. 17. Continue treatment per primary consultants. González Yadav M.D. DR: FARSHAD JOB#: [id number] CC:
[2019-11-04] MEDS: oxyCODONE 5mg IR tab GT SCH ×6 (01:00→21:40)
--- NOTE | 2019-11-04 03:30 | NUR ---
NURSE NOTES: bed bath provided. new gown and linens applied. oral care provided. pt tolerated well. no s/sx of acute distress.
[2019-11-04 04:00] VITALS: BP 130/61
--- NOTE | 2019-11-04 04:20 | NUR ---
NURSE NOTES: received call from [facility] informing this nurse of pt's urine culture positive for KPC. will inform
--- NOTE | 2019-11-04 05:15 | NUR ---
RESPIRATORY NOTE: PT REMAINED STABLE ON CMV WITH CURRENT SETTINGS. SXN PRN. AIRWAY IS SECURE AND PATENT. VENT CIRCUIT IS SECURE AND OUT OF THE WAY. NO S/S OF RESPIRATORY DISTRESS NOTED AT THIS TIME.
[2019-11-04 05:50] LABS: HEMATOCRIT 27.2 % (37.0-47.0); HEMOGLOBIN 8.5 G/DL (12.0-16.0); MEAN CORPUSCULAR VOLUME 90 FL (80-99); PLATELET COUNT 47 K/UL (150-450); RED CELL DISTRIBUTION WIDTH 14.8 % (11.6-14.8)
[2019-11-04] MEDS: metroNIDAZOLE 500mg tab ORAL SCH ×3 (06:00→21:39)
[2019-11-04 06:05] LABS: ALANINE AMINOTRANSFERASE < 6 U/L (12-78); ALBUMIN/GLOBULIN RATIO 0.6 (1.0-2.7); ALKALINE PHOSPHATASE 59 U/L (46-116); ANION GAP 11 mmol/L (5-15); ASPARTATE AMINO TRANSFERASE 18 U/L (15-37); BILIRUBIN,TOTAL 0.6 MG/DL (0.2-1.0); BLOOD UREA NITROGEN 12 mg/dL (7-18); CALCIUM 7.9 MG/DL (8.5-10.1); CARBON DIOXIDE 24 MMOL/L (21-32); CHLORIDE 105 MMOL/L (98-107); CREATININE 0.7 MG/DL (0.55-1.30); POTASSIUM 3.3 MMOL/L (3.5-5.1); SODIUM 140 MMOL/L (136-145)
[2019-11-04 06:11] LABS: WHITE BLOOD COUNT 28.6 K/UL (4.8-10.8)
--- NOTE | 2019-11-04 07:35 | NUR ---
HAND-OFF: Report given to Raghu Masters RN. endorsed plan of care.
--- NOTE | 2019-11-04 07:55 | NUR ---
NURSE NOTES: Report received from Elizabeth Long RN.
--- NOTE | 2019-11-04 07:56 | Consultation ---
History of Present Illness General Date patient seen: Nov 04, 2019 Time patient seen: 07:10 Chief Complaint: Abnormal Labs Referring physician: Dr Prince Reason for Consultation: chronic resp failure, possible PNA Present Illness HPI 74 years old female with past medical history of chronic respiratory failure, ventilator dependent, dysphagia, feeding by G-tube, encephalopathy, advanced Parkinson disease, bedbound, AML ( not being treated), ovarian mass, consistent with neoplasm, was sent to emergency department for blood transfusion due to significant pancytopenia. Upon evaluation WBC 13.3 ,hemoglobin 6.5, hematocrit 20.1 ,platelet count 40. Urinalysis revealed pyuria and many bacteria , +2 protein. Renal parameters revealed BUN 33, creatinine 1.0 , stable electrolytes. Albumin 2.3. Chest x-ray demonstrated elevated left hemidiaphragm with considerable left basilar atelectasis and less extensive right basilar atelectasis. Patient was swabbed for COVID-19. In emergency department patient was typed and crossed and started on blood transfusion, started on the IV fluids , pancultured , received empiric antibiotic and admitted for further management. CXR on 11/02 revealed development of left mid and lower lung infiltrate versus edema and possible pleural fluid. Pulmonary consult was requested to assist in management of this patient. Allergies: Coded Allergies: PENICILLINS (Verified Allergy, Unknown, 11/01/19) VANCOMYCIN (Verified Allergy, Unknown, 11/01/19) Uncoded Allergies: PENICI (Allergy, Unknown, 11/01/19) Medication History Scheduled Allopurinol* (Allopurinol*), 100 MG GT TID, (Reported) Arginine/Ascorbate Sod/Elsa AC (Arginaid Powder), 1 EACH GT BID, (Reported) Ascorbic Acid (Ascorbic Acid), 500 MG ORAL DAILY, (Reported) Docusate Sodium (Docusate Sodium), 100 MG GT DAILY, (Reported) Donepezil Hcl (Aricept), 10 MG GT QHS, (Reported) Multivitamin Liquid* (Multi-Delyn*), 10 ML GT DAILY, (Reported) Sennosides (Senna), 8.6 MG GT QHS, (Reported) Scheduled PRN Oxycodone HCl (Oxycodone HCl), 2.5 MG GT Q4H PRN for For Pain, (Reported) Patient History Healthcare decision maker Resuscitation status DNR/DNI Advanced Directive on File Review of Systems ROS Narrative unable to obtain due to altered mental status Physical Exam Last 24 Hour Vital Signs Date Time Temp Pulse Resp B/P (MAP) Pulse Ox O2 Delivery O2 Flow Rate FiO2 11/04/19 05:15 85 25 40 11/04/19 04:00 Mechanical Ventilator 11/04/19 04:00 40 11/04/19 04:00 98.1 91 28 130/61 (84) 100 11/04/19 03:57 80 26 40 11/04/19 03:57 87 11/04/19 00:56 89 24 40 11/04/19 00:00 76 11/04/19 00:00 Mechanical Ventilator 11/04/19 00:00 97.9 81 28 107/50 (69) 100 11/04/19 00:00 40 11/03/19 23:12 89 24 40 11/03/19 20:42 96 24 40 11/03/19 20:25 87 11/03/19 20:00 40 11/03/19 20:00 99.1 91 23 109/52 (71) 100 11/03/19 20:00 Mechanical Ventilator 11/03/19 19:15 100 24 40 11/03/19 16:00 Mechanical Ventilator 11/03/19 16:00 40 11/03/19 16:00 100.8 101 27 128/59 (82) 99 11/03/19 16:00 103 11/03/19 15:24 102 25 40 11/03/19 12:00 99.5 101 28 91/65 (74) 99 11/03/19 12:00 40 11/03/19 12:00 Mechanical Ventilator 11/03/19 11:56 99 11/03/19 10:30 98 27 40 11/03/19 08:00 40 11/03/19 08:00 91 11/03/19 08:00 98.6 92 26 138/62 (87) 100 11/03/19 08:00 Mechanical Ventilator Intake and Output 11/03/19 11/04/19 19:00 07:00 Intake Total 975 ml Output Total 401 ml Balance 574 ml Intake Free Water 200 ml Tube Feeding 375 ml Other 400 ml Output Urine Total 400 ml Stool Total 1 ml # Bowel Movements 1 1 Laboratory Tests Test 11/04/19 03:35 White Blood Count 28.6 K/UL (4.8-10.8) *H Red Blood Count 3.00 M/UL (4.20-5.40) L Hemoglobin 8.5 G/DL (12.0-16.0) L Hematocrit 27.2 % (37.0-47.0) L Mean Corpuscular Volume 90 FL (80-99) Mean Corpuscular Hemoglobin 28.5 PG (27.0-31.0) Mean Corpuscular Hemoglobin Concent 31.5 G/DL (32.0-36.0) L Red Cell Distribution Width 14.8 % (11.6-14.8) Platelet Count 47 K/UL (150-450) L Mean Platelet Volume 13.9 FL (6.5-10.1) H Neutrophils (%) (Auto) % (45.0-75.0) Lymphocytes (%) (Auto) % (20.0-45.0) Monocytes (%) (Auto) % (1.0-10.0) Eosinophils (%) (Auto) % (0.0-3.0) Basophils (%) (Auto) % (0.0-2.0) Neutrophils % (Manual) Pending Lymphocytes % (Manual) Pending Platelet Estimate Pending Platelet Morphology Pending Sodium Level 140 MMOL/L (136-145) Potassium Level 3.3 MMOL/L (3.5-5.1) L Chloride Level 105 MMOL/L (98-107) Carbon Dioxide Level 24 MMOL/L (21-32) Anion Gap 11 mmol/L (5-15) Blood Urea Nitrogen 12 mg/dL (7-18) Creatinine 0.7 MG/DL (0.55-1.30) Estimat Glomerular Filtration Rate > 60 mL/min (>60) Glucose Level 116 MG/DL (74-106) H Calcium Level 7.9 MG/DL (8.5-10.1) L Total Bilirubin 0.6 MG/DL (0.2-1.0) Aspartate Amino Transf (AST/SGOT) 18 U/L (15-37) Alanine Aminotransferase (ALT/SGPT) < 6 U/L (12-78) L Alkaline Phosphatase 59 U/L (46-116) Total Protein 5.5 G/DL (6.4-8.2) L Albumin 2.0 G/DL (3.4-5.0) L Globulin 3.5 g/dL Albumin/Globulin Ratio 0.6 (1.0-2.7) L Height (Feet): 5 Height (Inches): 4.00 Weight (Pounds): 153 Medications Current Medications Medications (Trade) Dose Ordered Sig/Inna Route PRN Reason Start Time Stop Time Status Last Admin Dose Admin Acetaminophen (Tylenol) 650 mg Q4H PRN NG fever 100.4, mild pain 11/01/19 23:15 12/01/19 23:14 11/02/19 19:27 Allopurinol (Zyloprim) 100 mg TID GT 11/02/19 09:00 12/02/19 08:59 11/03/19 18:00 Amikacin Protocol (Amikacin pharmacy to dose) 1 ea DAILY PRN MISC Per rx protocol 11/03/19 20:30 12/03/19 20:29 Amikacin Sulfate 1000 mg/Sodium Chloride 114 ml @ 114 mls/hr Q36H IV 11/03/19 22:00 11/10/19 21:59 11/03/19 22:20 Ascorbic Acid (Vitamin C) 500 mg DAILY GT 11/02/19 09:00 12/02/19 08:59 11/03/19 10:26 Carbidopa/Levodopa (Sinemet 25/100) 2 tab QID GT 11/02/19 09:00 12/02/19 08:59 11/03/19 19:01 Cefepime HCl 2 gm/ Dextrose 100 ml @ 200 mls/hr Q12HR IVPB 11/02/19 21:00 11/09/19 20:59 11/03/19 21:13 Chlorhexidine Gluconate (Josefa-Hex 2%) 1 applic DAILY@2000 TOPIC 11/03/19 20:00 02/01/20 19:59 Daptomycin 500 mg/ Sodium Chloride 50 ml @ 100 mls/hr Q24H IV 11/02/19 16:00 11/09/19 15:59 11/03/19 16:31 Dextrose/Sodium Chloride 1,000 ml @ 75 mls/hr [id number] IV 11/03/19 21:00 12/03/19 20:59 11/03/19 21:09 Docusate Sodium (Colace) 100 mg DAILY GT 11/02/19 09:00 12/02/19 08:59 11/03/19 10:26 Donepezil HCl (Aricept) 10 mg QHS GT 11/02/19 21:00 12/02/19 20:59 11/02/19 20:46 Entacapone (Comtan) 400 mg THREE TIMES A DAY ORAL 11/02/19 18:00 12/02/19 17:59 11/03/19 19:00 Heparin Sodium/ Sodium Chloride (Heparin 1000 units/500ml Premix) 1,000 unit ONCE PRN IV Radiology Use 11/03/19 07:00 11/05/19 06:59 Lansoprazole (Prevacid) 30 mg BID GT 11/02/19 09:00 12/02/19 08:59 11/03/19 18:00 Lidocaine HCl (Xylocaine 1% 30ml) 30 ml ONCE PRN INJ Radiology Use 11/03/19 07:00 11/05/19 06:59 Metoclopramide HCl (Reglan) 5 mg Q6H PRN IVP nausea or vomiting 11/01/19 23:15 12/01/19 23:14 11/02/19 12:51 Metronidazole (Flagyl) 500 mg EVERY 8 HOURS ORAL 11/02/19 22:00 11/09/19 21:59 11/03/19 13:30 Morphine Sulfate (Morphine Sulfate) 2 mg Q3H PRN IVP Moderate Pain (Pain Scale 4-6) 11/02/19 08:36 11/09/19 08:35 Multivitamins (Multivitamins W/ Minerals 15ml Liquid) 15 ml DAILY GT 11/02/19 09:00 12/02/19 08:59 11/03/19 10:33 Ondansetron HCl (Zofran) 4 mg Q4H PRN IVP Nausea & Vomiting 11/01/19 23:15 12/01/19 23:14 Oxycodone HCl (Roxicodone) 10 mg Q4HR GT 11/02/19 09:00 11/09/19 08:59 11/03/19 13:29 Polyethylene Glycol (Miralax) 17 gm DAILY PRN GT Constipation 11/02/19 08:30 12/02/19 07:59 Quetiapine Fumarate (SEROqueL) 50 mg QHS GT 11/02/19 21:00 12/17/19 20:59 11/02/19 20:46 Sennosides (Senokot) 8.6 mg QHS GT 11/02/19 21:00 12/02/19 20:59 11/02/19 20:44 Assessment/Plan Assessment/Plan: ASSESSMENT Martha Chandler NP Nov 04, 2019 07:56
[2019-11-04 08:00] VITALS: BP 145/80
--- NOTE | 2019-11-04 08:08 | Consultation ---
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 Upon evaluation WBC 13.3 ,hemoglobin 6.5, hematocrit 20.1 ,platelet count 40. Urinalysis revealed pyuria and many bacteria , +2 protein. Renal parameters revealed BUN 33, creatinine 1.0 , stable electrolytes. Albumin 2.3. Chest x-ray demonstrated elevated left hemidiaphragm with considerable left basilar atelectasis and less extensive right basilar atelectasis. Patient was swabbed for COVID-19. In emergency department patient was typed and crossed and started on blood transfusion, started on the IV fluids , pancultured , received empiric antibiotic and admitted for further management. CXR on 11/02 revealed development of left mid and lower lung infiltrate versus edema and possible pleural fluid. fevers yesterday, this am low grade fever and significant leukocytosis with WBC 28 Pulmonary consult was requested to assist in management of this patient. Allergies: Coded Allergies: PENICILLINS (Verified Allergy, Unknown, 11/01/19) VANCOMYCIN (Verified Allergy, Unknown, 11/01/19) Uncoded Allergies: PENICI (Allergy, Unknown, 11/01/19) Medication History Scheduled Allopurinol* (Allopurinol*), 100 MG GT TID, (Reported) Arginine/Ascorbate Sod/Elsa AC (Arginaid Powder), 1 EACH GT BID, (Reported) Ascorbic Acid (Ascorbic Acid), 500 MG ORAL DAILY, (Reported) Docusate Sodium (Docusate Sodium), 100 MG GT DAILY, (Reported) Donepezil Hcl (Aricept), 10 MG GT QHS, (Reported) Multivitamin Liquid* (Multi-Delyn*), 10 ML GT DAILY, (Reported) Sennosides (Senna), 8.6 MG GT QHS, (Reported) Scheduled PRN Oxycodone HCl (Oxycodone HCl), 2.5 MG GT Q4H PRN for For Pain, (Reported) Patient History Healthcare decision maker Resuscitation status DNR/DNI Advanced Directive on File Review of Systems ROS Narrative unable to obtain due to altered level of consciousness Physical Exam General Appearance: no apparent distress, other - bedridden, vent dependent female Lines, tubes and drains: peripheral HEENT: normocephalic, atraumatic, anicteric, status post trach - Shiley #6, secretions small amount, thick consistency, white color , other - Vent AC 400- 40%-20 PEEP 5 Respiratory/Chest: no respiratory distress, other - few scattered rhonchi Cardiovascular/Chest: regular rhythm Abdomen: non tender, soft, other - G tube out, site coverred with dressing Extremities: no edema, other - spastic LE Skin Exam: warm/dry, other - multiple DTI POA ( sacral, ankle foot, elbow) Neurologic: abnormal gait - bedridden, not responsive Musculoskeletal: atrophy - BLE Last 24 Hour Vital Signs Date Time Temp Pulse Resp B/P (MAP) Pulse Ox O2 Delivery O2 Flow Rate FiO2 11/04/19 05:15 85 25 40 11/04/19 04:00 Mechanical Ventilator 11/04/19 04:00 40 11/04/19 04:00 98.1 91 28 130/61 (84) 100 11/04/19 03:57 80 26 40 11/04/19 03:57 87 11/04/19 00:56 89 24 40 11/04/19 00:00 76 11/04/19 00:00 Mechanical Ventilator 11/04/19 00:00 97.9 81 28 107/50 (69) 100 11/04/19 00:00 40 11/03/19 23:12 89 24 40 11/03/19 20:42 96 24 40 11/03/19 20:25 87 11/03/19 20:00 40 11/03/19 20:00 99.1 91 23 109/52 (71) 100 11/03/19 20:00 Mechanical Ventilator 11/03/19 19:15 100 24 40 11/03/19 16:00 Mechanical Ventilator 11/03/19 16:00 40 11/03/19 16:00 100.8 101 27 128/59 (82) 99 11/03/19 16:00 103 11/03/19 15:24 102 25 40 11/03/19 12:00 99.5 101 28 91/65 (74) 99 11/03/19 12:00 40 11/03/19 12:00 Mechanical Ventilator 11/03/19 11:56 99 11/03/19 10:30 98 27 40 Intake and Output 11/03/19 11/04/19 19:00 07:00 Intake Total 975 ml Output Total 401 ml Balance 574 ml Intake Free Water 200 ml Tube Feeding 375 ml Other 400 ml Output Urine Total 400 ml Stool Total 1 ml # Bowel Movements 1 1 Laboratory Tests Test 11/04/19 03:35 White Blood Count 28.6 K/UL (4.8-10.8) *H Red Blood Count 3.00 M/UL (4.20-5.40) L Hemoglobin 8.5 G/DL (12.0-16.0) L Hematocrit 27.2 % (37.0-47.0) L Mean Corpuscular Volume 90 FL (80-99) Mean Corpuscular Hemoglobin 28.5 PG (27.0-31.0) Mean Corpuscular Hemoglobin Concent 31.5 G/DL (32.0-36.0) L Red Cell Distribution Width 14.8 % (11.6-14.8) Platelet Count 47 K/UL (150-450) L Mean Platelet Volume 13.9 FL (6.5-10.1) H Neutrophils (%) (Auto) % (45.0-75.0) Lymphocytes (%) (Auto) % (20.0-45.0) Monocytes (%) (Auto) % (1.0-10.0) Eosinophils (%) (Auto) % (0.0-3.0) Basophils (%) (Auto) % (0.0-2.0) Neutrophils % (Manual) Pending Lymphocytes % (Manual) Pending Platelet Estimate Pending Platelet Morphology Pending Sodium Level 140 MMOL/L (136-145) Potassium Level 3.3 MMOL/L (3.5-5.1) L Chloride Level 105 MMOL/L (98-107) Carbon Dioxide Level 24 MMOL/L (21-32) Anion Gap 11 mmol/L (5-15) Blood Urea Nitrogen 12 mg/dL (7-18) Creatinine 0.7 MG/DL (0.55-1.30) Estimat Glomerular Filtration Rate > 60 mL/min (>60) Glucose Level 116 MG/DL (74-106) H Calcium Level 7.9 MG/DL (8.5-10.1) L Total Bilirubin 0.6 MG/DL (0.2-1.0) Aspartate Amino Transf (AST/SGOT) 18 U/L (15-37) Alanine Aminotransferase (ALT/SGPT) < 6 U/L (12-78) L Alkaline Phosphatase 59 U/L (46-116) Total Protein 5.5 G/DL (6.4-8.2) L Albumin 2.0 G/DL (3.4-5.0) L Globulin 3.5 g/dL Albumin/Globulin Ratio 0.6 (1.0-2.7) L Height (Feet): 5 Height (Inches): 4.00 Weight (Pounds): 153 Medications Current Medications Medications (Trade) Dose Ordered Sig/Inna Route PRN Reason Start Time Stop Time Status Last Admin Dose Admin Acetaminophen (Tylenol) 650 mg Q4H PRN NG fever 100.4, mild pain 11/01/19 23:15 12/01/19 23:14 11/02/19 19:27 Allopurinol (Zyloprim) 100 mg TID GT 11/02/19 09:00 12/02/19 08:59 11/03/19 18:00 Amikacin Protocol (Amikacin pharmacy to dose) 1 ea DAILY PRN MISC Per rx protocol 11/03/19 20:30 12/03/19 20:29 Amikacin Sulfate 1000 mg/Sodium Chloride 114 ml @ 114 mls/hr Q36H IV 11/03/19 22:00 11/10/19 21:59 11/03/19 22:20 Ascorbic Acid (Vitamin C) 500 mg DAILY GT 11/02/19 09:00 12/02/19 08:59 11/03/19 10:26 Carbidopa/Levodopa (Sinemet 25/100) 2 tab QID GT 11/02/19 09:00 12/02/19 08:59 11/03/19 19:01 Cefepime HCl 2 gm/ Dextrose 100 ml @ 200 mls/hr Q12HR IVPB 11/02/19 21:00 11/09/19 20:59 11/03/19 21:13 Chlorhexidine Gluconate (Josefa-Hex 2%) 1 applic DAILY@2000 TOPIC 11/03/19 20:00 02/01/20 19:59 Daptomycin 500 mg/ Sodium Chloride 50 ml @ 100 mls/hr Q24H IV 11/02/19 16:00 11/09/19 15:59 11/03/19 16:31 Dextrose/Sodium Chloride 1,000 ml @ 75 mls/hr [id number] IV 11/03/19 21:00 12/03/19 20:59 11/03/19 21:09 Docusate Sodium (Colace) 100 mg DAILY GT 11/02/19 09:00 12/02/19 08:59 11/03/19 10:26 Donepezil HCl (Aricept) 10 mg QHS GT 11/02/19 21:00 12/02/19 20:59 11/02/19 20:46 Entacapone (Comtan) 400 mg THREE TIMES A DAY ORAL 11/02/19 18:00 12/02/19 17:59 11/03/19 19:00 Heparin Sodium/ Sodium Chloride (Heparin 1000 units/500ml Premix) 1,000 unit ONCE PRN IV Radiology Use 11/03/19 07:00 11/05/19 06:59 Lansoprazole (Prevacid) 30 mg BID GT 11/02/19 09:00 12/02/19 08:59 11/03/19 18:00 Lidocaine HCl (Xylocaine 1% 30ml) 30 ml ONCE PRN INJ Radiology Use 11/03/19 07:00 11/05/19 06:59 Metoclopramide HCl (Reglan) 5 mg Q6H PRN IVP nausea or vomiting 11/01/19 23:15 12/01/19 23:14 11/02/19 12:51 Metronidazole (Flagyl) 500 mg EVERY 8 HOURS ORAL 11/02/19 22:00 11/09/19 21:59 11/03/19 13:30 Morphine Sulfate (Morphine Sulfate) 2 mg Q3H PRN IVP Moderate Pain (Pain Scale 4-6) 11/02/19 08:36 11/09/19 08:35 Multivitamins (Multivitamins W/ Minerals 15ml Liquid) 15 ml DAILY GT 11/02/19 09:00 12/02/19 08:59 11/03/19 10:33 Ondansetron HCl (Zofran) 4 mg Q4H PRN IVP Nausea & Vomiting 11/01/19 23:15 12/01/19 23:14 Oxycodone HCl (Roxicodone) 10 mg Q4HR GT 11/02/19 09:00 11/09/19 08:59 11/03/19 13:29 Polyethylene Glycol (Miralax) 17 gm DAILY PRN GT Constipation 11/02/19 08:30 12/02/19 07:59 Quetiapine Fumarate (SEROqueL) 50 mg QHS GT 11/02/19 21:00 12/17/19 20:59 11/02/19 20:46 Sennosides (Senokot) 8.6 mg QHS GT 11/02/19 21:00 12/02/19 20:59 11/02/19 20:44 Assessment/Plan Assessment/Plan: ASSESSMENT Chronic respiratory failure ventilator dependent with tracheostomy status Sepsis Gram positive bacteremia: real vs contaminant Probably pneumonia ? 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), s/p 2 u PRBC Pancytopenia Dysphagia, feeding by G-tube Advanced Parkinson's disease Severe protein calorie malnutrition Malfunctioning G tube ( inadvertently was removed) Multiple DTI , POA Ovarian mass consistent with neoplasm Suspected COVID-19 infection Severe protein calorie malnutrition Functional quadriplegia PLAN OF CARE NAZARIO ventilator support, trach care, pulm toilet baseline ABG and titrate settings based on readings get SCX BCX 10/31 05/28 Staph haemolyticus 11/01 05/28 Staph aureus ECHO pending UCX Klebsiella Carbapenem resistant abx as per ID recs COVID 19 by rapid testing 11/01 NGT, awaiting for the second result Venous Duplex BLE today, and if negative, will start SCD monitor HH with goal to keep Hgb >7, trend PLT severe pancytopenia likely 2 to AML leukocytosis 2 to sepsis and partially possibly due to malignancy IVF, replace lytes as needed, monitor volumes asp precautions GT was inadvertently removed) GI consult pending for placement and further recs protein supplement as per RD recs continue SNF meds as per primary supportive care bowel regimen wound care as per surgeon recs overall prognosis poor, given multiple comorbidities, with superimposed AML and ovarian mass DNR/DNI status case discussed and evaluated by supervising physician Eugene Dan MD 11/04/19 1610: History of Present Illness General Chief Complaint: abnormal labs Present Illness Allergies: Coded Allergies: PENICILLINS (Verified Allergy, Unknown, 11/01/19) VANCOMYCIN (Verified Allergy, Unknown, 11/01/19) Uncoded Allergies: PENICI (Allergy, Unknown, 11/01/19) Medication History Scheduled Allopurinol* (Allopurinol*), 100 MG GT TID, (Reported) Arginine/Ascorbate Sod/Elsa AC (Arginaid Powder), 1 EACH GT BID, (Reported) Ascorbic Acid (Ascorbic Acid), 500 MG ORAL DAILY, (Reported) Docusate Sodium (Docusate Sodium), 100 MG GT DAILY, (Reported) Donepezil Hcl (Aricept), 10 MG GT QHS, (Reported) Multivitamin Liquid* (Multi-Delyn*), 10 ML GT DAILY, (Reported) Sennosides (Senna), 8.6 MG GT QHS, (Reported) Scheduled PRN Oxycodone HCl (Oxycodone HCl), 2.5 MG GT Q4H PRN for For Pain, (Reported) Assessment/Plan Assessment/Plan: Patient seen and examined with LIME VAT TENDER. Agree with above A&P as it reflects our joint deliberations. Martha Chandler NP Nov 04, 2019 08:08 Eugene Dan MD Nov 04, 2019 16:10
[2019-11-04] MEDS: Levodopa/Carbidopa 25/100 tab GT SCH ×4 (09:00→21:44)
[2019-11-04] MEDS: Multivitamins W/Minerals 15 ML UDC GT SCH (09:00)
[2019-11-04] MEDS: Ascorbic Acid 500mg tab GT SCH (09:00)
[2019-11-04] MEDS: Docusate 100mg/10ml Liq GT SCH (09:00)
[2019-11-04] MEDS: Allopurinol 100mg Tab GT SCH ×3 (09:00→17:16)
[2019-11-04] MEDS: Entacapone 200mg tab ORAL SCH ×3 (09:00→17:17)
[2019-11-04] MEDS: D5NS 1,000 ML IV SCH (10:34)
--- NOTE | 2019-11-04 10:34 | NUR ---
RADIOLOGY DEPT., CHEST X-RAY DONE.-P.DYE
--- NOTE | 2019-11-04 10:58 | NUR ---
DISCHARGE PLANNING: NOTE CM [place] [facility] [place] TEST REQUIREMENTS TEST RESULTS ON 11/01 IS ADEQUATE FOR READMISSION ARCELIA T: [phone] Addendum: 11/04/19 at 1418 by Ella Mcnamara CM GT DISLODGED WBCs ELEVATED ROOM 201B @ [place] [facility] WHEN PT IS STABLE
--- NOTE | 2019-11-04 11:02 | NUR ---
CASE MANAGEMENT: REVIEW 11/04/2019 SI:Chronic respiratory failure ventilator dependent with tracheostomy status. VS: T 99.8 HR 85 RR 24 B/P 145/80 SATS 98% ON MECH VENT FIO2 40 LABS: WBC 28.6 K 3.3 GLU 116 CA 7.9 ALT <6 IS:D5NS IV @ 75 ML/HR FLAGYL PO Q8H DAPTOMYCIN IV Q24H AMIKACIN IV Q36H SDU DCP: SNF PLAN OF CARE: COVID RETEST VENOUS DUPLEX SPUTUM CX
--- NOTE | 2019-11-04 11:05 | NUR ---
NURSE NOTES: Dr Aaron at bedside,inserted a new GT,procedure tolerated,no distress or discomfort presented.
[2019-11-04] MEDS ORDERED: Heparin1,000 units/500ml Premix(Conc:2 units/ml) IV PRN (11:45)
[2019-11-04] MEDS ORDERED: Lidocaine 1% Plain 30 ml INJ PRN (11:45)
[2019-11-04 12:00] VITALS: BP 123/57
--- NOTE | 2019-11-04 12:47 | Diagnostic Imaging Report ---
Indication: Shortness of breath Technique: One view of the chest Comparison: 11/03/2019 Findings: Left-sided interstitial and hazy airspace disease is unchanged. There may be some minimal interstitial and hazy airspace disease in the right midlung The left hemidiaphragm is obscured, pleural fluid possible. The heart size is normal. Again demonstrated is a tracheostomy. Impression: Unchanged left lung infiltrates. Questionable minimal infiltrates in the right lung, since previous day's exam
--- NOTE | 2019-11-04 13:47 | Internal Med Progress Note ---
Subjective Date of Service: Nov 04, 2019 Physician Name Fredrick Prince Attending Physician Fredrick Prince MD Current Medications Medications (Trade) Dose Ordered Sig/Inna Route PRN Reason Start Time Stop Time Status Last Admin Dose Admin Acetaminophen (Tylenol) 650 mg Q4H PRN NG fever 100.4, mild pain 11/01/19 23:15 12/01/19 23:14 11/02/19 19:27 Allopurinol (Zyloprim) 100 mg TID GT 11/02/19 09:00 12/02/19 08:59 11/04/19 12:54 Amikacin Protocol (Amikacin pharmacy to dose) 1 ea DAILY PRN MISC Per rx protocol 11/03/19 20:30 12/03/19 20:29 Amikacin Sulfate 1000 mg/Sodium Chloride 114 ml @ 114 mls/hr Q36H IV 11/03/19 22:00 11/10/19 21:59 11/03/19 22:20 Ascorbic Acid (Vitamin C) 500 mg DAILY GT 11/02/19 09:00 12/02/19 08:59 11/03/19 10:26 Carbidopa/Levodopa (Sinemet 25/100) 2 tab QID GT 11/02/19 09:00 12/02/19 08:59 11/04/19 12:55 Cefepime HCl 2 gm/ Dextrose 100 ml @ 200 mls/hr Q12HR IVPB 11/02/19 21:00 11/09/19 20:59 11/04/19 10:32 Chlorhexidine Gluconate (Josefa-Hex 2%) 1 applic DAILY@2000 TOPIC 11/03/19 20:00 02/01/20 19:59 Daptomycin 500 mg/ Sodium Chloride 50 ml @ 100 mls/hr Q24H IV 11/02/19 16:00 11/09/19 15:59 11/03/19 16:31 Dextrose/Sodium Chloride 1,000 ml @ 75 mls/hr [id number] IV 11/03/19 21:00 12/03/19 20:59 11/04/19 10:34 Docusate Sodium (Colace) 100 mg DAILY GT 11/02/19 09:00 12/02/19 08:59 11/03/19 10:26 Donepezil HCl (Aricept) 10 mg QHS GT 11/02/19 21:00 12/02/19 20:59 11/02/19 20:46 Entacapone (Comtan) 400 mg THREE TIMES A DAY ORAL 11/02/19 18:00 12/02/19 17:59 11/04/19 12:54 Heparin Sodium/ Sodium Chloride (Heparin 1000 units/500ml Premix) 1,000 unit ONCE PRN IV Radiology Use 11/03/19 07:00 11/05/19 06:59 Heparin Sodium/ Sodium Chloride (Heparin 1000 units/500ml Premix) 1,000 unit ONCE PRN IV radiology procedure 11/04/19 11:45 11/06/19 11:44 Lansoprazole (Prevacid) 30 mg BID GT 11/02/19 09:00 12/02/19 08:59 11/03/19 18:00 Lidocaine HCl (Xylocaine 1% 30ml) 30 ml ONCE PRN INJ Radiology Use 11/03/19 07:00 11/05/19 06:59 Lidocaine HCl (Xylocaine 1% 30ml) 30 ml ONCE PRN INJ radiology procedure 11/04/19 11:45 11/06/19 11:44 Metoclopramide HCl (Reglan) 5 mg Q6H PRN IVP nausea or vomiting 11/01/19 23:15 12/01/19 23:14 11/02/19 12:51 Metronidazole (Flagyl) 500 mg EVERY 8 HOURS ORAL 11/02/19 22:00 11/09/19 21:59 11/03/19 13:30 Morphine Sulfate (Morphine Sulfate) 2 mg Q3H PRN IVP Moderate Pain (Pain Scale 4-6) 11/02/19 08:36 11/09/19 08:35 Multivitamins (Multivitamins W/ Minerals 15ml Liquid) 15 ml DAILY GT 11/02/19 09:00 12/02/19 08:59 11/03/19 10:33 Ondansetron HCl (Zofran) 4 mg Q4H PRN IVP Nausea & Vomiting 11/01/19 23:15 12/01/19 23:14 Oxycodone HCl (Roxicodone) 10 mg Q4HR GT 11/02/19 09:00 11/09/19 08:59 11/04/19 12:54 Pantoprazole (Protonix) 40 mg DAILY IVP 11/05/19 09:00 12/05/19 08:59 Polyethylene Glycol (Miralax) 17 gm DAILY PRN GT Constipation 11/02/19 08:30 12/02/19 07:59 Quetiapine Fumarate (SEROqueL) 50 mg QHS GT 11/02/19 21:00 12/17/19 20:59 11/02/19 20:46 Sennosides (Senokot) 8.6 mg QHS GT 11/02/19 21:00 12/02/19 20:59 11/02/19 20:44 Zinc Oxide (Desitin) 1 applic FOUR TIMES A DAY TOPIC 11/04/19 14:00 12/04/19 13:59 Allergies: Coded Allergies: PENICILLINS (Verified Allergy, Unknown, 11/01/19) VANCOMYCIN (Verified Allergy, Unknown, 11/01/19) Uncoded Allergies: PENICI (Allergy, Unknown, 11/01/19) ROS Limited/Unobtainable: Yes All Systems: reviewed and negative except above Subjective non verbal, chronic trach wbc rised +GPC in blood Objective Last Vital Signs Date Time Temp Pulse Resp B/P (MAP) Pulse Ox O2 Delivery O2 Flow Rate FiO2 11/04/19 11:00 61 16 40 11/04/19 08:00 99.8 145/80 (101) 98 11/04/19 08:00 Mechanical Ventilator General Appearance: no apparent distress Cardiovascular: regular rhythm, no gallop/murmur Respiratory/Chest: lungs clear Abdomen: soft Edema: pitting Neurologic: aphasia Skin: warm/dry Laboratory Tests Test 11/04/19 03:35 11/04/19 09:45 11/04/19 11:27 White Blood Count 28.6 K/UL (4.8-10.8) *H Red Blood Count 3.00 M/UL (4.20-5.40) L Hemoglobin 8.5 G/DL (12.0-16.0) L Hematocrit 27.2 % (37.0-47.0) L Mean Corpuscular Volume 90 FL (80-99) Mean Corpuscular Hemoglobin 28.5 PG (27.0-31.0) Mean Corpuscular Hemoglobin Concent 31.5 G/DL (32.0-36.0) L Red Cell Distribution Width 14.8 % (11.6-14.8) Platelet Count 47 K/UL (150-450) L Mean Platelet Volume 13.9 FL (6.5-10.1) H Neutrophils (%) (Auto) % (45.0-75.0) Lymphocytes (%) (Auto) % (20.0-45.0) Monocytes (%) (Auto) % (1.0-10.0) Eosinophils (%) (Auto) % (0.0-3.0) Basophils (%) (Auto) % (0.0-2.0) Differential Total Cells Counted 100 Neutrophils % (Manual) 10 % (45-75) L Lymphocytes % (Manual) 30 % (20-45) Monocytes % (Manual) 16 % (1-10) H Eosinophils % (Manual) 0 % (0-3) Basophils % (Manual) 0 % (0-2) Blast Cells % 44 % (0-0) *H Band Neutrophils 0 % (0-8) Platelet Estimate Decreased L Platelet Morphology Normal Hypochromasia 2+ Anisocytosis 1+ Sodium Level 140 MMOL/L (136-145) Potassium Level 3.3 MMOL/L (3.5-5.1) L Chloride Level 105 MMOL/L (98-107) Carbon Dioxide Level 24 MMOL/L (21-32) Anion Gap 11 mmol/L (5-15) Blood Urea Nitrogen 12 mg/dL (7-18) Creatinine 0.7 MG/DL (0.55-1.30) Estimat Glomerular Filtration Rate > 60 mL/min (>60) Glucose Level 116 MG/DL (74-106) H Calcium Level 7.9 MG/DL (8.5-10.1) L Total Bilirubin 0.6 MG/DL (0.2-1.0) Aspartate Amino Transf (AST/SGOT) 18 U/L (15-37) Alanine Aminotransferase (ALT/SGPT) < 6 U/L (12-78) L Alkaline Phosphatase 59 U/L (46-116) Total Protein 5.5 G/DL (6.4-8.2) L Albumin 2.0 G/DL (3.4-5.0) L Globulin 3.5 g/dL Albumin/Globulin Ratio 0.6 (1.0-2.7) L Random Amikacin Level Pending Arterial Blood pH 7.384 (7.350-7.450) Arterial Blood Partial Pressure CO2 37.0 mmHg (35.0-45.0) Arterial Blood Partial Pressure O2 65.7 mmHg (75.0-100.0) L Arterial Blood HCO3 21.6 mmol/L (22.0-26.0) L Arterial Blood Oxygen Saturation 91.3 % (95-100) L Arterial Blood Base Excess -3.1 (-2-2) L Sergio Test Positive Microbiology Date/Time Source Procedure Growth Status 11/02/19 20:10 Blood Blood Culture - Preliminary Staphylococcus Aureus Resulted 11/02/19 19:45 Blood Blood Culture - Preliminary NO GROWTH AFTER 24 HOURS Resulted 11/02/19 22:00 Nasopharynx Coronavirus COVID-19 PCR ([facility]) - Final Complete 11/01/19 16:30 Nasal Nares MRSA Culture - Final NO METHICILLIN RESISTANT STAPH AUREUS... Complete 11/01/19 16:30 Rectum VRE Culture - Final Enterococcus Faecalis - Vre Complete 11/01/19 16:30 Rectum Received Intake and Output 11/03/19 11/04/19 18:59 06:59 Intake Total 1010 ml 777.75 ml Output Total 401 ml 550 ml Balance 609 ml 227.75 ml Intake Free Water 200 ml IV Total 777.75 ml Tube Feeding 410 ml Other 400 ml Output Urine Total 400 ml 550 ml Stool Total 1 ml # Bowel Movements 1 2 Assessment/Plan Status: progressing Assessment/Plan Impression: 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 GPC bacteremia leuckocytosis ovarian mass c/w neoplasm chronic resp failure s trach on ventilator advanced parkinson's diease dementia pancytopenia severe protein calorie malnutrition press sore unstageable contracture functional quadraplegia s/p PEG bedbound chronic indwelling dong catheter PEG malfunction Plan: GI consult s/p PRBC tx x 2 units IV abx wound care f/u cx ID f/u electrolyte replete as needed enteral feeding ventilator pulm HHN dong pain control DNAR status Fredrick Prince MD Internal Medicine [phone] time spent today over 35 minutes stamp time on this note may NOT be the actual encounter time. Fredrick Prince MD Nov 04, 2019 13:47
--- NOTE | 2019-11-04 15:34 | Surgery Progress Note ---
Surgery Progress Note Subjective Additional Comments transfused wbc blasts exam unchanged imaging reviewed Objective Last 24 Hour Vital Signs Date Time Temp Pulse Resp B/P (MAP) Pulse Ox O2 Delivery O2 Flow Rate FiO2 11/04/19 11:00 61 16 40 11/04/19 08:04 84 11/04/19 08:00 99.8 85 24 145/80 (101) 98 11/04/19 08:00 Mechanical Ventilator 11/04/19 08:00 40 11/04/19 07:00 87 22 40 11/04/19 05:15 85 25 40 11/04/19 04:00 Mechanical Ventilator 11/04/19 04:00 40 11/04/19 04:00 98.1 91 28 130/61 (84) 100 11/04/19 03:57 80 26 40 11/04/19 03:57 87 11/04/19 00:56 89 24 40 11/04/19 00:00 76 11/04/19 00:00 Mechanical Ventilator 11/04/19 00:00 97.9 81 28 107/50 (69) 100 11/04/19 00:00 40 11/03/19 23:12 89 24 40 11/03/19 20:42 96 24 40 11/03/19 20:25 87 11/03/19 20:00 40 11/03/19 20:00 99.1 91 23 109/52 (71) 100 11/03/19 20:00 Mechanical Ventilator 11/03/19 19:15 100 24 40 11/03/19 16:00 Mechanical Ventilator 11/03/19 16:00 40 11/03/19 16:00 100.8 101 27 128/59 (82) 99 11/03/19 16:00 103 I&O Intake and Output 11/03/19 11/04/19 19:00 07:00 Intake Total 975 ml 852.75 ml Output Total 401 ml 550 ml Balance 574 ml 302.75 ml Intake Free Water 200 ml IV Total 852.75 ml Tube Feeding 375 ml Other 400 ml Output Urine Total 400 ml 550 ml Stool Total 1 ml # Bowel Movements 1 2 Dressing: other Wound: other Drains: other Cardiovascular: RSR Respiratory: decreased breath sounds Abdomen: soft, non-tender, present bowel sounds Extremities: no cyanosis, other Laboratory Tests Test 11/04/19 03:35 6/12/20 09:45 11/04/19 11:27 White Blood Count 28.6 K/UL (4.8-10.8) *H Red Blood Count 3.00 M/UL (4.20-5.40) L Hemoglobin 8.5 G/DL (12.0-16.0) L Hematocrit 27.2 % (37.0-47.0) L Mean Corpuscular Volume 90 FL (80-99) Mean Corpuscular Hemoglobin 28.5 PG (27.0-31.0) Mean Corpuscular Hemoglobin Concent 31.5 G/DL (32.0-36.0) L Red Cell Distribution Width 14.8 % (11.6-14.8) Platelet Count 47 K/UL (150-450) L Mean Platelet Volume 13.9 FL (6.5-10.1) H Neutrophils (%) (Auto) % (45.0-75.0) Lymphocytes (%) (Auto) % (20.0-45.0) Monocytes (%) (Auto) % (1.0-10.0) Eosinophils (%) (Auto) % (0.0-3.0) Basophils (%) (Auto) % (0.0-2.0) Differential Total Cells Counted 100 Neutrophils % (Manual) 10 % (45-75) L Lymphocytes % (Manual) 30 % (20-45) Monocytes % (Manual) 16 % (1-10) H Eosinophils % (Manual) 0 % (0-3) Basophils % (Manual) 0 % (0-2) Blast Cells % 44 % (0-0) *H Band Neutrophils 0 % (0-8) Platelet Estimate Decreased L Platelet Morphology Normal Hypochromasia 2+ Anisocytosis 1+ Sodium Level 140 MMOL/L (136-145) Potassium Level 3.3 MMOL/L (3.5-5.1) L Chloride Level 105 MMOL/L (98-107) Carbon Dioxide Level 24 MMOL/L (21-32) Anion Gap 11 mmol/L (5-15) Blood Urea Nitrogen 12 mg/dL (7-18) Creatinine 0.7 MG/DL (0.55-1.30) Estimat Glomerular Filtration Rate > 60 mL/min (>60) Glucose Level 116 MG/DL (74-106) H Calcium Level 7.9 MG/DL (8.5-10.1) L Total Bilirubin 0.6 MG/DL (0.2-1.0) Aspartate Amino Transf (AST/SGOT) 18 U/L (15-37) Alanine Aminotransferase (ALT/SGPT) < 6 U/L (12-78) L Alkaline Phosphatase 59 U/L (46-116) Total Protein 5.5 G/DL (6.4-8.2) L Albumin 2.0 G/DL (3.4-5.0) L Globulin 3.5 g/dL Albumin/Globulin Ratio 0.6 (1.0-2.7) L Random Amikacin Level Pending Arterial Blood pH 7.384 (7.350-7.450) Arterial Blood Partial Pressure CO2 37.0 mmHg (35.0-45.0) Arterial Blood Partial Pressure O2 65.7 mmHg (75.0-100.0) L Arterial Blood HCO3 21.6 mmol/L (22.0-26.0) L Arterial Blood Oxygen Saturation 91.3 % (95-100) L Arterial Blood Base Excess -3.1 (-2-2) L Sergio Test Positive Plan Problems: (1) Decubitus skin ulcer Assessment & Plan: Pt presented on admission with multiple Pressure Injuries, and contractures. Large Soft Mass noted to lateral R chest ,just inferior to Breast.Soft mass that uis violaceous and denuded. Unstageable Pressure injury R thoracic. Wound presents as partially opened DTPI( L)6cm x (W)8.5cm. 95% Soft eschar flap,5% dee. Marginal erythema along borders In addition scattered linear and purple area periwound. Full thickness stage 4 Sacral Pressure Injury(L)9.3cm x (W)8.7cm. Base of wound is 95% necrotic,but bone is palpable.Mild odor noted. No exudate noted. Non-blanching erythema periwound. Unstageable Pressure Injury R trochanter(L)3.5cm x (W)4.2cm. Base of wound is 90 % soft eschar, 10% pink epithelial. Edges adherent to base of wound .No erythema induration or fluctuance periwound. Unstageable Pressure injury R Ischium(L)3.5cm x (W)2.5cm. Dry eschar at base of wound, edges are adherent with surrounding pink epithelial. No erythema or induration periwound. DTPI L trochanter(L)4cm x (W)1cm. Stable dry eschar L Hallux(L)1.6cm x (W)2cm.NO erythema fluctuance or induration periwound. L 1st metatarsal TMA noted. Stable dry eschar distal/lateral L foot (L)1.5cm x (W)3cm. No erythema, induration or fluctuance periwound. DTPI noted to plantar L foot.(L)0.9cm x (W)0.9cm. Base of wound is fluctuant, purple with maroon borders. Unstageable Pressure injury L lateral Malleolus. Stable dry eschar noted.No erythema or induration periwound. L heel is boggy with non-blanching erythema. Unstageable Pressure injury R Hallux and plantar aspect(L)3.5cm x (W)3.4cm. Soft eschar at base of wound with marginal erythema along borders. R heel is boggy with Non-Blanching erythema. Unstageable Presure injury distal/Lateral R foot . Stable dry eschar noted . No erythema of fluctuance periwound. Tx.Plan: Cleanse Sacral Wound with Saline. Loosely pack with Therahoney impregnated Kerlix.Applpy Moisture Barrier Paste periwound. Cover with Optifoam drsg. Change Daily and prn. Cleanse Soft Mass R chest with Saline. Cover with Optifoam drsg. Change Daily and prn. Cleanse wounds R trochanter, R Ischium with Saline. Apply Moisture Barrier Paste.Cover with Optifoam drsg. Change every 3 days and prn. Apply Moisture Barrier to L trochanter. Cvoer with Optifoam drsg. Change every 3 days and prn. Apply Betadine to wounds R and L foot. Cover each wound with Optifoam drsg. Changee very 3 days and prn. Apply Cavilon Skin Barrier to both heels. Cover each heel with Optifoam drsg. Change every 7 days and prn. APM/ANA Mattress overlay. turn q2h nutritional optimization (2) Malnutrition Assessment & Plan: DAILY ESTIMATED NEEDS: Needs based on Critical care, wounds, 64kg 22-28 kcals/kg 3178-0966 total kcals 1.25-2 g protein/kg 80-128 g total protein 25-30 mL/kg 1192-9985 total fluid mLs NUTRITION DIAGNOSIS: Swallowing difficulty r/t respiratory status as evidenced by pt is trach and peg dep. CURRENT TF:Osmolite 1.5 @40 ml/hr x24 hrs ENTERAL NUTRITION RECOMMENDATIONS: VITAL AF 1.2 goal of 55ml/hr x24 hrs to provide 1320ml, 1584 kcal, 99g pro, 1071ml free H2O -> [employer] pt on elemental formula-> rec VITAL AF for critical care, high protein and hydrolyzed proteins. - Start @25ml/hr for 6 hrs, advance as tolerated 10ml/hr q4-6 hrs to goal - Flush per - WYATT over 30 degrees ADDITIONAL RECOMMENDATIONS: 1) Per SNF: 65 inches (5'5"); 141 lbs (64.1kg) 2) TF recs as above 3) F/up w/ WC eval -> add MEIR BID via GT (3) Anemia Assessment & Plan: transfused trend labs no active bleeding stool study GI eval (4) UTI (urinary tract infection) (5) Tracheostomy dependence Assessment & Plan: Findings: The left hemidiaphragm is elevated. Atelectatic changes are present in the left lung base. There is minimal right basilar atelectasis. No definite infiltrates. There is a tracheostomy. Impression: Elevated left hemidiaphragm with considerable left basilar atelectasis. Less extensive right basilar atelectasis. Inspiration is suboptimal. Interim development of opacity of the left mid and lower lung. The left hemidiaphragm is obscured. Right lung is probably clear , although there is crowding of bronchovascular lung volumes. Tracheostomy remains. Impression: Since 11/01/2019, interim development of left mid and lower lung infiltrates versus edema and possibly pleural fluid Juan Houser Nov 04, 2019 15:34
--- NOTE | 2019-11-04 15:57 | Diagnostic Imaging Report ---
Indication: Bilateral leg pain Technique: Grayscale and duplex images of the bilateral lower extremity veins Comparison: None Findings: Bilaterally, grayscale and duplex images demonstrate no evidence of intraluminal thrombus. Normal phasic Doppler waveforms, demonstrating normal augmentation response and no evidence of valvular insufficiency. Greater saphenous vein(s) and tibial veins are patent. Normal compressibility. Impression: Negative for evidence of lower extremity deep venous thrombosis bilaterally
[2019-11-04 16:00] VITALS: BP 117/51
--- NOTE | 2019-11-04 16:15 | Consultation ---
DATE OF CONSULTATION: 11/04/2019 CONSULTING PHYSICIAN: Negro Reeves MD. REFERRING PHYSICIAN: Fredrick Prince MD. CHIEF COMPLAINT: Malfunctioning G-tube, anemia. HISTORY OF PRESENT ILLNESS: Most of the history is per chart. This is a very unfortunate 74-year-old [place] female with past medical history of AML. The patient has also history of ovarian mass. The patient lives in assisted with trach and PEG, was admitted to the hospital with fever, elevated white count, malfunctioning G-tube, and anemia, so GI consult requested for further evaluation. PAST MEDICAL HISTORY: 1. AML. 2. Respiratory failure with vent. 3. Dysphagia with G-tube. 4. Ovarian mass. 5. Advanced Parkinson disease. 6. Anemia requiring blood transfusion in the past. 7. Dementia. 8. Pancytopenia. PAST SURGICAL HISTORY: Tracheostomy. ALLERGIES: To penicillin and vancomycin. MEDICATIONS: Please see medication reconciliation list. SOCIAL HISTORY: Currently lives in a assisted. No history of tobacco, alcohol, or drug abuse. FAMILY HISTORY: Noncontributory. REVIEW OF SYSTEMS: Unable to obtain. PHYSICAL EXAMINATION: VITAL SIGNS: Temperature 99.8, pulse 85, respirations 24, and blood pressure 140/80. HEENT: Normocephalic and atraumatic. Pale conjunctivae. NECK: Supple. No evidence of obvious lymphadenopathy. CARDIOVASCULAR: Tachy, regular rate. Plus S1 and S2. LUNGS: Decreased breath sounds bilaterally and diffusely. ABDOMEN: Soft, nontender. G-tube in place. Balloon is dislodged. EXTREMITIES: No cyanosis. No clubbing. There is evidence of edema. LABORATORY DATA: White count is 28,000, hemoglobin 8.5 after blood transfusion, hematocrit 27, and platelet count is 47,000. Sodium 140, potassium 3.3, BUN is 12, creatinine 0.7. ASSESSMENT: This is a 74-year-old female with significant anemia and malfunctioning G-tube, respiratory failure, and so on and so forth. PLAN: The patient's G-tube was removed at the bedside and the 24-Gu[place] balloon type G-tube was replaced. Flushing was good. So, we are going to start tube feeding. The patient also needs zinc oxide three times a day to be applied to the G-tube site. We will re-examine G-tube site tomorrow and make further recommendation as we go along. In terms of anemia, it is most probably hematological given there is no active bleeding, the patient has a low platelet count. Plan to monitor H and H and transfuse as needed. Given the patient on the vent, we recommend PPI for GI prophylaxis. I want to thank Dr. Prince for this kind referral. Negro Reeves M.D. DR: ALEC JOB#: [id number] CC:
--- NOTE | 2019-11-04 16:30 | NUR ---
NURSE NOTES: PICC line team at bedside,PICC line insertion to MATEO done,procedure tolerated,
--- NOTE | 2019-11-04 16:50 | Brief Operative Note ---
Immediate Post Operative Note Operative Note Chief Complaint: Needs prison IV access Pre-op Diagnosis: AML Procedure: Right PICC bedside Post-op Diagnosis: same as pre-op Findings: consistent w/pre-op dx studies Surgeon: Addi Leonard MD, MA Anesthesia: local Specimen: none Complications: none Condition: stable Fluids: 0 Estimated Blood Loss: minimal Implant(s) used?: Yes - Dual lumen 35cm power injectable PICC Addi Leonard MD Nov 04, 2019 16:50
--- NOTE | 2019-11-04 16:51 | NUR ---
RADIOLOGY NOTE: RIGHT UPPER EXTREMITY PICC LINE PLACED BY DR. MATI TREVINO. FA
--- NOTE | 2019-11-04 17:00 | NUR ---
NURSE NOTES: Pt stable no distress presented,bed bath given ,turned and repositioned.
[2019-11-04] MEDS: Desitin Rash Paste TOPIC SCH ×3 (17:02→21:43)
[2019-11-04] MEDS: DAPTOmycin 500 MG in NS 50 ML IV SCH (17:15)
--- NOTE | 2019-11-04 19:15 | NUR ---
HAND-OFF: Report given to Gayle Hale RN..
--- NOTE | 2019-11-04 19:20 | NUR ---
NURSE NOTES: Report received from Guerrero Ochoa RN.Pt resting in bed comfortably. noted no Resp distress with trach to vent,vent settings are AC 20 TV400 Fio2 40% PEEP 5 , tolerated,no signs of pain or discomfort S-R on the monitor,GTF Vital AF 1.2 at 30 ml /hr,goal is 55 ml/hr,no residual noted,Bailey cath draining yellow urine,skin warm and dry IV site to PICC line on MATOE intact,Running D5 NS at 75cc/hr.Side rails up x2 ,HOB elevated,bed lock in lowest position will continue with plans of care.
--- NOTE | 2019-11-04 19:35 | NUR ---
NURSE NOTES: Report received from Elizabeth Long RN.Pt resting in bed asleep, noted no resp distress,with trach tube to vent,ordered vent settings tolerated,no signs of pain or discomfort,SR on the monitor, no GT access,dislodged,Bailey cath draining yellow urine,skin warm and dry,IV site to LT foot intact,SR up x2 HOB elevated,bed lock in lowest position,will continue with plans of care. Addendum: 11/04/19 at 1958 by GRABIEL MERRILL RN wrong documentation of time,[id number],Report received from Elizabeth Long RN.
--- NOTE | 2019-11-04 19:48 | NUR ---
NURSE NOTES: Dr Aaron at bedside,inserted a new GT, tolerated well,no signs of distress noted Addendum: 11/04/19 at 1999 by GRABIEL EMRRILL RN wrong documentation of time.1100,Dr Aaron at bedside.
[2019-11-04 20:00] VITALS: BP 117/56
[2019-11-04] MEDS: Donepezil 10mg tab GT SCH (21:38)
[2019-11-04] MEDS: Dyna-Hex 2% Top Sol 2oz TOPIC SCH (21:38)
[2019-11-04] MEDS: Sennosides 8.6mg tab GT SCH (21:39)
[2019-11-05] VITALS: BP 111/80
[2019-11-05] MEDS: D5NS 1,000 ML IV SCH ×2 (00:02→12:14)
[2019-11-05] MEDS: oxyCODONE 5mg IR tab GT SCH ×6 (01:20→20:36)
--- NOTE | 2019-11-05 01:45 | NUR ---
NURSE NOTES: Asleep in bed with no acute distress.GTF Tolerating well.vs stable. Afebrile. will continue to monitor.
[2019-11-05 04:00] VITALS: BP 115/51
[2019-11-05] MEDS: metroNIDAZOLE 500mg tab ORAL SCH (06:16)
--- NOTE | 2019-11-05 07:26 | Pulmonology Progress Note ---
Martha Chandler SURFACE SUPPLY BREATHING APPARATUS 11/05/19 0726: Subjective ROS Limited/Unobtainable: Yes Constitutional: Reports: fever Allergies: Coded Allergies: PENICILLINS (Verified Allergy, Unknown, 11/01/19) VANCOMYCIN (Verified Allergy, Unknown, 11/01/19) Uncoded Allergies: PENICI (Allergy, Unknown, 11/01/19) All Systems: reviewed and negative except above Subjective ABG stable on current setting G tube replaced tx with 2 u PRBC still sign leuk with small trend down K-3,1 Objective Last 24 Hour Vital Signs Date Time Temp Pulse Resp B/P (MAP) Pulse Ox O2 Delivery O2 Flow Rate FiO2 11/05/19 05:17 103 22 40 11/05/19 04:00 40 11/05/19 04:00 92 11/05/19 04:00 98.4 96 22 115/51 (72) 100 11/05/19 04:00 Mechanical Ventilator 11/05/19 00:00 Mechanical Ventilator 11/05/19 00:00 97.8 93 25 111/80 (90) 100 11/05/19 00:00 40 11/05/19 00:00 94 11/04/19 23:11 95 23 40 11/04/19 20:00 Mechanical Ventilator 11/04/19 20:00 40 11/04/19 20:00 93 11/04/19 20:00 99.1 83 28 117/56 (76) 98 11/04/19 19:19 95 22 40 11/04/19 16:00 96 11/04/19 16:00 Mechanical Ventilator 11/04/19 16:00 40 11/04/19 16:00 99.1 99 24 117/51 (73) 98 11/04/19 15:00 61 23 40 11/04/19 12:00 96 11/04/19 12:00 Mechanical Ventilator 11/04/19 12:00 40 11/04/19 12:00 98.4 92 21 123/57 (79) 100 11/04/19 11:00 61 16 40 11/04/19 08:04 84 11/04/19 08:00 99.8 85 24 145/80 (101) 98 11/04/19 08:00 Mechanical Ventilator 11/04/19 08:00 40 Intake and Output 11/04/19 11/05/19 19:00 07:00 Intake Total 1555 ml 1080 ml Output Total 400 ml 400 ml Balance 1155 ml 680 ml Intake Free Water 200 ml 200 ml IV Total 825 ml 550 ml Tube Feeding 210 ml 330 ml Other 320 ml Output Urine Total 400 ml 400 ml # Bowel Movements 1 Objective General Appearance: no apparent distress, other - bedridden, vent dependent female Lines, tubes and drains: peripheral HEENT: normocephalic, atraumatic, anicteric, status post trach - Shiley #6, secretions small amount, thin consistency, white color , Vent AC 400-40%-20 PEEP 5 Respiratory/Chest: no respiratory distress, few scattered rhonchi Cardiovascular/Chest: regular rhythm, RUE PICC intact Abdomen: non tender, soft, new G tube Extremities: no edema, other - spastic LE Skin Exam: warm/dry, other - multiple DTI POA ( sacral, ankle foot, elbow) Neurologic: abnormal gait - bedridden, not responsive Musculoskeletal: atrophy - BLE Microbiology Date/Time Source Procedure Growth Status 11/02/19 20:10 Blood Blood Culture - Final Staphylococcus Aureus - Mrsa Complete 11/02/19 19:45 Blood Blood Culture - Preliminary NO GROWTH AFTER 48 HOURS Resulted 11/02/19 22:00 Nasopharynx Coronavirus COVID-19 PCR ([facility]) - Final Complete Laboratory Tests 11/04/19 09:45: Random Amikacin Level [Pending] 11/04/19 11:27: Arterial Blood pH 7.384, Arterial Blood Partial Pressure CO2 37.0, Arterial Blood Partial Pressure O2 65.7L, Arterial Blood HCO3 21.6L, Arterial Blood Oxygen Saturation 91.3L, Arterial Blood Base Excess -3.1L, Sergio Test Positive 11/05/19 05:20: White Blood Count [Pending], Red Blood Count [Pending], Hemoglobin [Pending], Hematocrit [Pending], Mean Corpuscular Volume [Pending], Mean Corpuscular Hemoglobin [Pending], Mean Corpuscular Hemoglobin Concent [Pending], Red Cell Distribution Width [Pending], Platelet Count [Pending], Mean Platelet Volume [ Pending], Neutrophils (%) (Auto) [Pending], Lymphocytes (%) (Auto) [Pending], Monocytes (%) (Auto) [Pending], Eosinophils (%) (Auto) [Pending], Basophils (%) (Auto) [Pending], Sodium Level [Pending], Potassium Level [Pending], Chloride Level [Pending], Carbon Dioxide Level [Pending], Blood Urea Nitrogen [Pending], Creatinine [Pending], Estimat Glomerular Filtration Rate [Pending], Glucose Level [Pending], Calcium Level [Pending] Current Medications Medications (Trade) Dose Ordered Sig/Inna Route PRN Reason Start Time Stop Time Status Last Admin Dose Admin Acetaminophen (Tylenol) 650 mg Q4H PRN NG fever 100.4, mild pain 11/01/19 23:15 12/01/19 23:14 11/02/19 19:27 Allopurinol (Zyloprim) 100 mg TID GT 11/02/19 09:00 12/02/19 08:59 11/04/19 17:16 Amikacin Protocol (Amikacin pharmacy to dose) 1 ea DAILY PRN MISC Per rx protocol 11/03/19 20:30 12/03/19 20:29 Amikacin Sulfate 1000 mg/Sodium Chloride 114 ml @ 114 mls/hr Q36H IV 11/03/19 22:00 11/10/19 21:59 11/03/19 22:20 Ascorbic Acid (Vitamin C) 500 mg DAILY GT 11/02/19 09:00 12/02/19 08:59 11/03/19 10:26 Carbidopa/Levodopa (Sinemet 25/100) 2 tab QID GT 11/02/19 09:00 12/02/19 08:59 11/04/19 21:44 Cefepime HCl 2 gm/ Dextrose 100 ml @ 200 mls/hr Q12HR IVPB 11/02/19 21:00 11/09/19 20:59 11/04/19 21:43 Chlorhexidine Gluconate (Josefa-Hex 2%) 1 applic DAILY@2000 TOPIC 11/03/19 20:00 02/01/20 19:59 11/04/19 21:38 Daptomycin 500 mg/ Sodium Chloride 50 ml @ 100 mls/hr Q24H IV 11/02/19 16:00 11/09/19 15:59 11/04/19 17:15 Dextrose/Sodium Chloride 1,000 ml @ 75 mls/hr [id number] IV 11/03/19 21:00 12/03/19 20:59 11/05/19 00:02 Docusate Sodium (Colace) 100 mg DAILY GT 11/02/19 09:00 12/02/19 08:59 11/03/19 10:26 Donepezil HCl (Aricept) 10 mg QHS GT 11/02/19 21:00 12/02/19 20:59 11/04/19 21:38 Entacapone (Comtan) 400 mg THREE TIMES A DAY ORAL 11/02/19 18:00 12/02/19 17:59 11/04/19 17:17 Heparin Sodium/ Sodium Chloride (Heparin 1000 units/500ml Premix) 1,000 unit ONCE PRN IV radiology procedure 11/04/19 11:45 11/06/19 11:44 Lansoprazole (Prevacid) 30 mg BID GT 11/02/19 09:00 12/02/19 08:59 11/04/19 17:16 Lidocaine HCl (Xylocaine 1% 30ml) 30 ml ONCE PRN INJ radiology procedure 11/04/19 11:45 11/06/19 11:44 Metoclopramide HCl (Reglan) 5 mg Q6H PRN IVP nausea or vomiting 11/01/19 23:15 12/01/19 23:14 11/02/19 12:51 Metronidazole (Flagyl) 500 mg EVERY 8 HOURS ORAL 11/02/19 22:00 11/09/19 21:59 11/05/19 06:16 Morphine Sulfate (Morphine Sulfate) 2 mg Q3H PRN IVP Moderate Pain (Pain Scale 4-6) 11/02/19 08:36 11/09/19 08:35 Multivitamins (Multivitamins W/ Minerals 15ml Liquid) 15 ml DAILY GT 11/02/19 09:00 12/02/19 08:59 11/03/19 10:33 Ondansetron HCl (Zofran) 4 mg Q4H PRN IVP Nausea & Vomiting 11/01/19 23:15 12/01/19 23:14 Oxycodone HCl (Roxicodone) 10 mg Q4HR GT 11/02/19 09:00 11/09/19 08:59 11/05/19 06:16 Pantoprazole (Protonix) 40 mg DAILY IVP 11/05/19 09:00 12/05/19 08:59 Polyethylene Glycol (Miralax) 17 gm DAILY PRN GT Constipation 11/02/19 08:30 12/02/19 07:59 Quetiapine Fumarate (SEROqueL) 50 mg QHS GT 11/02/19 21:00 12/17/19 20:59 11/04/19 21:39 Sennosides (Senokot) 8.6 mg QHS GT 11/02/19 21:00 12/02/19 20:59 11/04/19 21:39 Zinc Oxide (Desitin) 1 applic FOUR TIMES A DAY TOPIC 11/04/19 14:00 12/04/19 13:59 11/04/19 21:43 Assessment/Plan Assessment/Plan ASSESSMENT Chronic respiratory failure ventilator dependent with tracheostomy status Sepsis MRSA bacteremia Probably pneumonia ? 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), s/p 2 u PRBC Pancytopenia Dysphagia, feeding by G-tube Advanced Parkinson's disease Severe protein calorie malnutrition Malfunctioning G tube ( inadvertently was removed) Multiple DTI , POA Ovarian mass consistent with neoplasm Suspected COVID-19 infection Severe protein calorie malnutrition Functional quadriplegia PLAN OF CARE NAZARIO ventilator support, trach care, pulm toilet baseline ABG stable on current settings, keep as is and optimize as needed CXR11/03 Unchanged left lung infiltrates. get SCX BCX 10/31 05/28 Staph haemolyticus 11/01 05/28 MRSA ECHO pending UCX Klebsiella Carbapenem resistant abx as per ID recs COVID 19 by rapid testing 11/01 NGT, awaiting for the second result Venous Duplex BLE NGT, apply SCD, monitor HH with goal to keep Hgb >7, trend PLT severe pancytopenia likely 2 to AML leukocytosis 2 to sepsis and partially possibly due to malignancy IVF, replace lytes as needed, replace K monitor volumes asp precautions GT was inadvertently removed) s/p replacement 11/03 by GI started TF maintain strict aspir precautions protein supplement as per RD recs continue SNF meds as per primary supportive care bowel regimen wound care as per surgeon recs overall prognosis poor, given multiple comorbidities, with superimposed AML and ovarian mass DNR/DNI status case discussed and evaluated by supervising physician Eugene Dan MD 11/05/19 1538: Subjective Allergies: Coded Allergies: PENICILLINS (Verified Allergy, Unknown, 11/01/19) VANCOMYCIN (Verified Allergy, Unknown, 11/01/19) Uncoded Allergies: PENICI (Allergy, Unknown, 11/01/19) Assessment/Plan Assessment/Plan Patient seen and examined with SURFACE SUPPLY BREATHING APPARATUS. Agree with above A&P as it reflects our joint deliberations. Martha Chandler NP Nov 05, 2019 07:26 Eugene Dan MD Nov 05, 2019 15:38
--- NOTE | 2019-11-05 07:32 | NUR ---
HAND-OFF: Report given to Laquita FRITZ RN, using SBAR.Patient remains in stable conditions
--- NOTE | 2019-11-05 07:35 | NUR ---
NURSE NOTES: Received report SRIKANTH Araujo. The patient is resting on the bed without acute distress or shortness of breath. The patient is [facility] and communication made by facial expression and body movement. [facility] setting as followed as ordered: Shiley 6, AC 20, TV 400, FiO2 40%, and PEEP 5 and oxygen saturation is 100%. The patient's new J tube intact and patent and running Vital AF 1.2 @40mL/hr with goal of 55mL/hr. Will increase the rate of tube feeding as tolerated. Bailey intact and patent and draining by gravity. Skin issue noted and dressing intact. MATEO double lumen PICC line and Lt foot 18G peripheral IV intact and patent and running D5NS @75mL/hr as ordered on one of PICC line. Code status of DNR and DNI confirmed. The patient's bed in the lowest position, call light in reach, and fall and aspiration precaution reinforced. Will follow up the lab and order. Will continue plan of care.
[2019-11-05 07:41] LABS: HEMATOCRIT 24.7 % (37.0-47.0); HEMOGLOBIN 7.8 G/DL (12.0-16.0); MEAN CORPUSCULAR VOLUME 91 FL (80-99); PLATELET COUNT 34 K/UL (150-450); RED BLOOD COUNT 2.73 M/UL (4.20-5.40); RED CELL DISTRIBUTION WIDTH 14.8 % (11.6-14.8)
[2019-11-05 07:43] LABS: ANION GAP 6 mmol/L (5-15); BLOOD UREA NITROGEN 10 mg/dL (7-18); CALCIUM 7.7 MG/DL (8.5-10.1); CARBON DIOXIDE 26 MMOL/L (21-32); CHLORIDE 106 MMOL/L (98-107); CREATININE 0.8 MG/DL (0.55-1.30); POTASSIUM 3.2 MMOL/L (3.5-5.1); SODIUM 138 MMOL/L (136-145)
--- NOTE | 2019-11-05 07:52 | NUR ---
RD ASSESSMENT & RECOMMENDATIONS SEE CARE ACTIVITY FOR COMPLETE ASSESSMENT DAILY ESTIMATED NEEDS: Needs based on Critical care, wounds, 64kg 22-28 kcals/kg 6944-6506 total kcals 1.25-2 g protein/kg 80-128 g total protein 25-30 mL/kg 9232-4089 total fluid mLs NUTRITION DIAGNOSIS: Swallowing difficulty r/t respiratory status as evidenced by pt is trach and peg dep. CURRENT TF:VITAL AF 1.2 @ 55ml/hr x24 hrs ENTERAL NUTRITION RECOMMENDATIONS: VITAL AF 1.2 @ 55ml/hr x24 hrs to provide 1320ml, 1584 kcal, 99g pro, 1071ml free H2O - Maintain current TF order, cont to advance as tolerated to goal. - Flush per MD - HOB over 30 degrees ADDITIONAL RECOMMENDATIONS: 1) Per SNF: 65 inches (5'5"); 141 lbs (64.1kg) 2) Wound care: add MEIR BID via GT 3) Monitor lytes, replete as needed .
[2019-11-05 07:56] LABS: WHITE BLOOD COUNT 26.6 K/UL (4.8-10.8)
[2019-11-05 08:00] VITALS: BP 121/73
--- NOTE | 2019-11-05 08:00 | NUR ---
NURSE NOTES: Paged Dr. Membreno for positive blood culture and elevated WBC. Paged Dr. Prince regarding abnormal lab of Hgb, plt, blast cell, and potassium. Awaiting for further order. Will closely monitor the patient. Will continue plan of care.
[2019-11-05] MEDS ORDERED: NS 500ML ONE (08:46)
[2019-11-05] MEDS ORDERED: NS 275ml ONE (08:46)
--- NOTE | 2019-11-05 09:00 | NUR ---
NURSE NOTES: Dr. Membreno called back for further order. Again, notified elevated WBC and positive blood culture. Dr. Membreno ordered to discontinue Amikacin but start on Polymyxin B 500,000 unit IVPB Q12hr. Carried out the order. Will continue plan of care.
[2019-11-05] MEDS: Multivitamins W/Minerals 15 ML UDC GT SCH (09:14)
[2019-11-05] MEDS: Docusate 100mg/10ml Liq GT SCH (09:14)
[2019-11-05] MEDS: Ascorbic Acid 500mg tab GT SCH (09:15)
[2019-11-05] MEDS: Levodopa/Carbidopa 25/100 tab GT SCH ×4 (09:15→20:38)
[2019-11-05] MEDS: Entacapone 200mg tab ORAL SCH ×3 (09:16→17:21)
[2019-11-05] MEDS: Pantoprazole Inj IVP SCH (09:16)
[2019-11-05] MEDS: Allopurinol 100mg Tab GT SCH ×3 (09:16→17:21)
[2019-11-05] MEDS: Polymyxin B Sulfate 500,000 UNITS in D5W 500ml 550 ML IV SCH ×2 (09:18→23:03)
--- NOTE | 2019-11-05 09:30 | NUR ---
NURSE NOTES: Morning medications administered as ordered. The patient is stable at this time. Will closely monitor the patient. Will continue plan of care.
[2019-11-05] MEDS: Desitin Rash Paste TOPIC SCH ×4 (09:47→23:03)
--- NOTE | 2019-11-05 10:00 | NUR ---
NURSE NOTES: Dr. Prince ordered as follows regarding abnormal lab: 1unit pRBC transfusion and KCL 10mEq IVPBx6 with total of 60mEq. Clarification will be made regarding KCL order as [employer]LINE [employer]IST. Martha ordered KCL 40mEq GT one time. Will closely monitor the patient. Will continue plan of care.
--- NOTE | 2019-11-05 10:00 | Diagnostic Imaging Report ---
EXAM: XR Chest, 1 View CLINICAL HISTORY: INFECT TECHNIQUE: Frontal view of the chest. COMPARISON: Chest x-ray 11/04/19 FINDINGS: Lungs: Hypoventilatory lungs. Bibasilar atelectasis/consolidations, similar to prior study. Pleural space: Probable bilateral pleural effusions. No pneumothorax. Heart: Cardiomegaly. Mediastinum: Unremarkable. Bones/joints: Unremarkable. Tubes, lines and devices: Interval placement of right PICC line tip to the mid SVC. IMPRESSION: 1. Interval placement of right PICC line tip to the mid SVC. 2. Hypoventilatory lungs. Bibasilar atelectasis/consolidations, similar to prior study. 3. Probable bilateral pleural effusions.
[2019-11-05] MEDS: Acetaminophen 650mg/20.3ml NG PRN (10:39)
--- NOTE | 2019-11-05 10:53 | General Progress Note ---
Assessment/Plan Status: stable, progressing Assessment/Plan: 1. AML. 2. Respiratory failure with vent. 3. Dysphagia with G-tube. 4. Ovarian mass. 5. Advanced Parkinson disease. 6. Anemia requiring blood transfusion in the past. 7. Dementia. 8. Pancytopenia. GT has been changed at the bedside yesterday GTF running fu H&H transfuse prn Subjective ROS Limited/Unobtainable: No Allergies: Coded Allergies: PENICILLINS (Verified Allergy, Unknown, 11/01/19) VANCOMYCIN (Verified Allergy, Unknown, 11/01/19) Uncoded Allergies: PENICI (Allergy, Unknown, 11/01/19) Objective Last 24 Hour Vital Signs Date Time Temp Pulse Resp B/P (MAP) Pulse Ox O2 Delivery O2 Flow Rate FiO2 11/05/19 10:35 101 24 40 11/05/19 08:00 91 11/05/19 08:00 40 11/05/19 07:17 93 20 40 11/05/19 05:17 103 22 40 11/05/19 04:00 40 11/05/19 04:00 92 11/05/19 04:00 98.4 96 22 115/51 (72) 100 11/05/19 04:00 Mechanical Ventilator 11/05/19 00:00 Mechanical Ventilator 11/05/19 00:00 97.8 93 25 111/80 (90) 100 11/05/19 00:00 40 11/05/19 00:00 94 11/04/19 23:11 95 23 40 11/04/19 20:00 Mechanical Ventilator 11/04/19 20:00 40 11/04/19 20:00 93 11/04/19 20:00 99.1 83 28 117/56 (76) 98 11/04/19 19:19 95 22 40 11/04/19 16:00 96 11/04/19 16:00 Mechanical Ventilator 11/04/19 16:00 40 11/04/19 16:00 99.1 99 24 117/51 (73) 98 11/04/19 15:00 61 23 40 11/04/19 12:00 96 11/04/19 12:00 Mechanical Ventilator 11/04/19 12:00 40 11/04/19 12:00 98.4 92 21 123/57 (79) 100 11/04/19 11:00 61 16 40 Intake and Output 11/04/19 11/05/19 19:00 07:00 Intake Total 1555 ml 1195 ml Output Total 400 ml 400 ml Balance 1155 ml 795 ml Intake Free Water 200 ml 200 ml IV Total 825 ml 625 ml Tube Feeding 210 ml 370 ml Other 320 ml Output Urine Total 400 ml 400 ml # Bowel Movements 1 Laboratory Tests 11/04/19 11:27: Arterial Blood pH 7.384, Arterial Blood Partial Pressure CO2 37.0, Arterial Blood Partial Pressure O2 65.7L, Arterial Blood HCO3 21.6L, Arterial Blood Oxygen Saturation 91.3L, Arterial Blood Base Excess -3.1L, Sergio Test Positive 11/05/19 05:20: White Blood Count 26.6*H, Red Blood Count 2.73L, Hemoglobin 7.8L, Hematocrit 24.7L, Mean Corpuscular Volume 91, Mean Corpuscular Hemoglobin 28.8, Mean Corpuscular Hemoglobin Concent 31.7L, Red Cell Distribution Width 14.8, Platelet Count 34L, Mean Platelet Volume 11.5H, Neutrophils (%) (Auto) , Lymphocytes (%) (Auto) , Monocytes (%) (Auto) , Eosinophils (%) (Auto) , Basophils (%) (Auto) , Neutrophils % (Manual) [Pending], Lymphocytes % (Manual) [Pending], Platelet Estimate [Pending], Platelet Morphology [Pending], Sodium Level 138, Potassium Level 3.2L, Chloride Level 106, Carbon Dioxide Level 26, Anion Gap 6, Blood Urea Nitrogen 10, Creatinine 0.8, Estimat Glomerular Filtration Rate > 60, Glucose Level 104, Calcium Level 7.7L Height (Feet): 5 Height (Inches): 4.00 Weight (Pounds): 153 General Appearance: no apparent distress EENT: normal ENT inspection Neck: supple Cardiovascular: normal rate Respiratory/Chest: decreased breath sounds Abdomen: normal bowel sounds, non tender, soft Extremities: non-tender Negro Reeves MD Nov 05, 2019 10:53
[2019-11-05 12:00] VITALS: BP 116/60
--- NOTE | 2019-11-05 12:00 | NUR ---
NURSE NOTES: The patient is stable without acute distress or shortness of breath. The patient seems to be comfortable. Will closely monitor the patient. Will continue plan of care.
--- NOTE | 2019-11-05 12:45 | NUR ---
NURSE NOTES: Clarification made with Dr. Prince regarding KCl order. Dr. Prince ordered KCL 10mEq x2 total of 20mEq extra as the patient already received KCL 40mEq GT once. Carried out the order. Will administer as ordered. Will continue plan of care.
--- NOTE | 2019-11-05 13:02 | Surgery Progress Note ---
Surgery Progress Note Subjective Additional Comments new g tube labs noted exam stable ill appearing Objective Last 24 Hour Vital Signs Date Time Temp Pulse Resp B/P (MAP) Pulse Ox O2 Delivery O2 Flow Rate FiO2 11/05/19 10:35 101 24 40 11/05/19 08:00 91 11/05/19 08:00 40 11/05/19 08:00 98.9 95 20 121/73 (89) 100 11/05/19 07:17 93 20 40 11/05/19 05:17 103 22 40 11/05/19 04:00 40 11/05/19 04:00 92 11/05/19 04:00 98.4 96 22 115/51 (72) 100 11/05/19 04:00 Mechanical Ventilator 11/05/19 00:00 Mechanical Ventilator 11/05/19 00:00 97.8 93 25 111/80 (90) 100 11/05/19 00:00 40 11/05/19 00:00 94 11/04/19 23:11 95 23 40 11/04/19 20:00 Mechanical Ventilator 11/04/19 20:00 40 11/04/19 20:00 93 11/04/19 20:00 99.1 83 28 117/56 (76) 98 11/04/19 19:19 95 22 40 11/04/19 16:00 96 11/04/19 16:00 Mechanical Ventilator 11/04/19 16:00 40 11/04/19 16:00 99.1 99 24 117/51 (73) 98 11/04/19 15:00 61 23 40 I&O Intake and Output 11/04/19 11/05/19 19:00 07:00 Intake Total 1555 ml 1195 ml Output Total 400 ml 400 ml Balance 1155 ml 795 ml Intake Free Water 200 ml 200 ml IV Total 825 ml 625 ml Tube Feeding 210 ml 370 ml Other 320 ml Output Urine Total 400 ml 400 ml # Bowel Movements 1 Dressing: other Wound: other Drains: other Cardiovascular: RSR Respiratory: decreased breath sounds Abdomen: soft, present bowel sounds Extremities: no cyanosis Laboratory Tests Test 11/05/19 05:20 White Blood Count 26.6 K/UL (4.8-10.8) *H Red Blood Count 2.73 M/UL (4.20-5.40) L Hemoglobin 7.8 G/DL (12.0-16.0) L Hematocrit 24.7 % (37.0-47.0) L Mean Corpuscular Volume 91 FL (80-99) Mean Corpuscular Hemoglobin 28.8 PG (27.0-31.0) Mean Corpuscular Hemoglobin Concent 31.7 G/DL (32.0-36.0) L Red Cell Distribution Width 14.8 % (11.6-14.8) Platelet Count 34 K/UL (150-450) L Mean Platelet Volume 11.5 FL (6.5-10.1) H Neutrophils (%) (Auto) % (45.0-75.0) Lymphocytes (%) (Auto) % (20.0-45.0) Monocytes (%) (Auto) % (1.0-10.0) Eosinophils (%) (Auto) % (0.0-3.0) Basophils (%) (Auto) % (0.0-2.0) Differential Total Cells Counted 100 Neutrophils % (Manual) 7 % (45-75) L Lymphocytes % (Manual) 28 % (20-45) Monocytes % (Manual) 5 % (1-10) Eosinophils % (Manual) 0 % (0-3) Basophils % (Manual) 0 % (0-2) Blast Cells % 60 % (0-0) *H Band Neutrophils 0 % (0-8) Platelet Estimate Decreased L Platelet Morphology Normal Polychromasia 2+ Hypochromasia 1+ Sodium Level 138 MMOL/L (136-145) Potassium Level 3.2 MMOL/L (3.5-5.1) L Chloride Level 106 MMOL/L (98-107) Carbon Dioxide Level 26 MMOL/L (21-32) Anion Gap 6 mmol/L (5-15) Blood Urea Nitrogen 10 mg/dL (7-18) Creatinine 0.8 MG/DL (0.55-1.30) Estimat Glomerular Filtration Rate > 60 mL/min (>60) Glucose Level 104 MG/DL (74-106) Calcium Level 7.7 MG/DL (8.5-10.1) L Plan Problems: (1) Decubitus skin ulcer Assessment & Plan: Pt presented on admission with multiple Pressure Injuries, and contractures. Large Soft Mass noted to lateral R chest ,just inferior to Breast.Soft mass that uis violaceous and denuded. Unstageable Pressure injury R thoracic. Wound presents as partially opened DTPI( L)6cm x (W)8.5cm. 95% Soft eschar flap,5% dee. Marginal erythema along borders In addition scattered linear and purple area periwound. Full thickness stage 4 Sacral Pressure Injury(L)9.3cm x (W)8.7cm. Base of wound is 95% necrotic,but bone is palpable.Mild odor noted. No exudate noted. Non-blanching erythema periwound. Unstageable Pressure Injury R trochanter(L)3.5cm x (W)4.2cm. Base of wound is 90 % soft eschar, 10% pink epithelial. Edges adherent to base of wound .No erythema induration or fluctuance periwound. Unstageable Pressure injury R Ischium(L)3.5cm x (W)2.5cm. Dry eschar at base of wound, edges are adherent with surrounding pink epithelial. No erythema or induration periwound. DTPI L trochanter(L)4cm x (W)1cm. Stable dry eschar L Hallux(L)1.6cm x (W)2cm.NO erythema fluctuance or induration periwound. L 1st metatarsal TMA noted. Stable dry eschar distal/lateral L foot (L)1.5cm x (W)3cm. No erythema, induration or fluctuance periwound. DTPI noted to plantar L foot.(L)0.9cm x (W)0.9cm. Base of wound is fluctuant, purple with maroon borders. Unstageable Pressure injury L lateral Malleolus. Stable dry eschar noted.No erythema or induration periwound. L heel is boggy with non-blanching erythema. Unstageable Pressure injury R Hallux and plantar aspect(L)3.5cm x (W)3.4cm. Soft eschar at base of wound with marginal erythema along borders. R heel is boggy with Non-Blanching erythema. Unstageable Presure injury distal/Lateral R foot . Stable dry eschar noted . No erythema of fluctuance periwound. Tx.Plan: Cleanse Sacral Wound with Saline. Loosely pack with Therahoney impregnated Kerlix.Applpy Moisture Barrier Paste periwound. Cover with Optifoam drsg. Change Daily and prn. Cleanse Soft Mass R chest with Saline. Cover with Optifoam drsg. Change Daily and prn. Cleanse wounds R trochanter, R Ischium with Saline. Apply Moisture Barrier Paste.Cover with Optifoam drsg. Change every 3 days and prn. Apply Moisture Barrier to L trochanter. Cvoer with Optifoam drsg. Change every 3 days and prn. Apply Betadine to wounds R and L foot. Cover each wound with Optifoam drsg. Changee very 3 days and prn. Apply Cavilon Skin Barrier to both heels. Cover each heel with Optifoam drsg. Change every 7 days and prn. APM/ANA Mattress overlay. turn q2h nutritional optimization (2) Malnutrition Assessment & Plan: DAILY ESTIMATED NEEDS: Needs based on Critical care, wounds, 64kg 22-28 kcals/kg 9143-9274 total kcals 1.25-2 g protein/kg 80-128 g total protein 25-30 mL/kg 0753-9713 total fluid mLs NUTRITION DIAGNOSIS: Swallowing difficulty r/t respiratory status as evidenced by pt is trach and peg dep. CURRENT TF:Osmolite 1.5 @40 ml/hr x24 hrs ENTERAL NUTRITION RECOMMENDATIONS: VITAL AF 1.2 goal of 55ml/hr x24 hrs to provide 1320ml, 1584 kcal, 99g pro, 1071ml free H2O -> [employer] pt on elemental formula-> rec VITAL AF for critical care, high protein and hydrolyzed proteins. - Start @25ml/hr for 6 hrs, advance as tolerated 10ml/hr q4-6 hrs to goal - Flush per - HOB over 30 degrees ADDITIONAL RECOMMENDATIONS: 1) Per SNF: 65 inches (5'5"); 141 lbs (64.1kg) 2) TF recs as above 3) F/up w/ WC eval -> add MEIR BID via GT (3) Anemia Assessment & Plan: transfused trend labs no active bleeding stool study GI eval (4) UTI (urinary tract infection) (5) Tracheostomy dependence Assessment & Plan: Findings: The left hemidiaphragm is elevated. Atelectatic changes are present in the left lung base. There is minimal right basilar atelectasis. No definite infiltrates. There is a tracheostomy. Impression: Elevated left hemidiaphragm with considerable left basilar atelectasis. Less extensive right basilar atelectasis. Inspiration is suboptimal. Interim development of opacity of the left mid and lower lung. The left hemidiaphragm is obscured. Right lung is probably clear , although there is crowding of bronchovascular lung volumes. Tracheostomy remains. Impression: Since 11/01/2019, interim development of left mid and lower lung infiltrates versus edema and possibly pleural fluid Juan Houser Nov 05, 2019 13:02
--- NOTE | 2019-11-05 13:20 | NUR ---
NURSE NOTES: Notified leakage on G tube site with yellowish discharge. Notified to Dr. Reeves and Dr. Prince. Dr. Reeves ordered not to use new G tube until seen by Dr. Reeves. Will endorsed next shift nurse. Will continue plan of care.
--- NOTE | 2019-11-05 13:30 | NUR ---
NURSE NOTES: Notified Dr. Membreno regarding leakage in G-tube and Metronidazole 500mg GT route. Dr. Membreno discontinued Metronidazole. Will closely monitor the patient. Will continue plan of care.
--- NOTE | 2019-11-05 13:50 | NUR ---
NURSE NOTES: Started 1 unit pRBC transfusion as ordered. Will closely monitor the patient. Will continue plan of care.
--- NOTE | 2019-11-05 13:55 | NUR ---
*-*DISCHARGE PLANNING*-* PATIENT HAS BEEN ACCEPTED TO BACK TO [facility]. PATIENT NOT READY FOR DISCHARGE, S/W CHARGE NURSE ANDREA, WHO STATED PT HAS A G-TUBE LEAKAGE AND PT NEED BLOOD TRANSFUSION.
--- NOTE | 2019-11-05 15:30 | NUR ---
NURSE NOTES: Bed bath given to the patient. The patient tolerated well. Will closely monitor the patient. Will continue plan of acre.
[2019-11-05 16:00] VITALS: BP 112/51
--- NOTE | 2019-11-05 16:40 | Infectious Diseases Prog Note ---
Assessment/Plan Assessment/Plan ASSESSMENT AND PLAN: 1. mrsa bacteremia (retail advisor likely contaminant), klebsiella uti (cre), sepsis, AML, fevers, leukocytosis, pna, sacral wound infection - daptomycin, polymyxin - check surveillance blood cultures, echo, labs, sc, chest x-ray - wound management per surgery - d/w RN at length 2. Trach, vent respiratory failure. 3. Dysphagia, G-tube. 4. Anemia. 5. Thrombocytopenia. 6. Leukocytosis. 7. Malnutrition. 8. Ovarian mass with neoplasm. 9. Parkinson's. 10. Dementia. 11. Skin care per Surgery and protocol. 12. Allergies to penicillin, vancomycin. 13. Social history is negative. 14. Family history is noncontributory. 15. MAR was noted. 16. Case was discussed with RN. 17. Continue treatment per primary consultants. 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 Subjective Constitutional: Denies: fever HEENT: Denies: congestion Respiratory: Denies: shortness of breath Cardiovascular: Denies: chest pain Gastrointestinal/Abdominal: Denies: nausea, vomiting, diarrhea Genitourinary: Reports: other - ) Neurologic: Denies: headache Psychiatric: Denies: depression Skin: Denies: rash Hematologic: Denies: bleeding Musculoskeletal: Denies: pain Allergies: Coded Allergies: PENICILLINS (Verified Allergy, Unknown, 11/01/19) VANCOMYCIN (Verified Allergy, Unknown, 11/01/19) Uncoded Allergies: PENICI (Allergy, Unknown, 11/01/19) Objective Vital Signs Last 24 Hour Vital Signs Date Time Temp Pulse Resp B/P (MAP) Pulse Ox O2 Delivery O2 Flow Rate FiO2 11/05/19 15:06 95 23 40 11/05/19 12:00 40 11/05/19 12:00 97.1 89 20 116/60 (78) 100 11/05/19 12:00 Mechanical Ventilator 11/05/19 12:00 40 11/05/19 12:00 90 11/05/19 10:35 101 24 40 11/05/19 08:00 91 11/05/19 08:00 Mechanical Ventilator 11/05/19 08:00 40 11/05/19 08:00 40 11/05/19 08:00 98.9 95 20 121/73 (89) 100 11/05/19 07:17 93 20 40 11/05/19 05:17 103 22 40 11/05/19 04:00 40 11/05/19 04:00 92 11/05/19 04:00 98.4 96 22 115/51 (72) 100 11/05/19 04:00 Mechanical Ventilator 11/05/19 00:00 Mechanical Ventilator 11/05/19 00:00 97.8 93 25 111/80 (90) 100 11/05/19 00:00 40 11/05/19 00:00 94 11/04/19 23:11 95 23 40 11/04/19 20:00 Mechanical Ventilator 11/04/19 20:00 40 11/04/19 20:00 93 11/04/19 20:00 99.1 83 28 117/56 (76) 98 11/04/19 19:19 95 22 40 Height (Feet): 5 Height (Inches): 4.00 Weight (Pounds): 153 General Appearance: no acute distress, other - more alert HEENT: normocephalic, atraumatic, anicteric, mucous membranes moist Respiratory/Chest: crackles/rales, rhonchi - bilaterally Cardiovascular: normal rate, regular rhythm Abdomen: normal bowel sounds, soft, non tender, no organomegaly, non distended Genitourinary: other - + dong - urine slt cloudy Extremities: no cyanosis Skin: no rash Neurologic/Psychiatric: car shunter II-XII grossly normal, alert, other - weak but more alert Lymphatic: no neck adenopathy Musculoskeletal: no effusion Objective Chest x-ray - 11/05/19 - IMPRESSION: 1. Interval placement of right PICC line tip to the mid SVC. 2. Hypoventilatory lungs. Bibasilar atelectasis/consolidations, similar to prior study. 3. Probable bilateral pleural effusions. Microbiology Date/Time Source Procedure Growth Status 11/02/19 20:10 Blood Blood Culture - Final Staphylococcus Aureus - Mrsa Complete 11/02/19 22:00 Nasopharynx Coronavirus COVID-19 PCR ([facility]) - Final Complete 11/01/19 11:45 Urine,Clean Catch Urine Culture - Final K.pneumoniae Carbapenem Resist Complete 11/01/19 16:30 Rectum VRE Culture - Final Enterococcus Faecalis - Vre Complete Microbiology Date/Time Source Procedure Growth Status 11/02/19 20:10 Blood Blood Culture - Final Staphylococcus Aureus - [facility] Complete 11/02/19 19:45 Blood Blood Culture - Preliminary NO GROWTH AFTER 48 HOURS Resulted 11/02/19 22:00 Nasopharynx Coronavirus COVID-19 PCR ([facility]) - Final Complete Laboratory Tests Test 11/05/19 05:20 White Blood Count 26.6 K/UL (4.8-10.8) *H Red Blood Count 2.73 M/UL (4.20-5.40) L Hemoglobin 7.8 G/DL (12.0-16.0) L Hematocrit 24.7 % (37.0-47.0) L Mean Corpuscular Volume 91 FL (80-99) Mean Corpuscular Hemoglobin 28.8 PG (27.0-31.0) Mean Corpuscular Hemoglobin Concent 31.7 G/DL (32.0-36.0) L Red Cell Distribution Width 14.8 % (11.6-14.8) Platelet Count 34 K/UL (150-450) L Mean Platelet Volume 11.5 FL (6.5-10.1) H Neutrophils (%) (Auto) % (45.0-75.0) Lymphocytes (%) (Auto) % (20.0-45.0) Monocytes (%) (Auto) % (1.0-10.0) Eosinophils (%) (Auto) % (0.0-3.0) Basophils (%) (Auto) % (0.0-2.0) Differential Total Cells Counted 100 Neutrophils % (Manual) 7 % (45-75) L Lymphocytes % (Manual) 28 % (20-45) Monocytes % (Manual) 5 % (1-10) Eosinophils % (Manual) 0 % (0-3) Basophils % (Manual) 0 % (0-2) Blast Cells % 60 % (0-0) *H Band Neutrophils 0 % (0-8) Platelet Estimate Decreased L Platelet Morphology Normal Polychromasia 2+ Hypochromasia 1+ Sodium Level 138 MMOL/L (136-145) Potassium Level 3.2 MMOL/L (3.5-5.1) L Chloride Level 106 MMOL/L (98-107) Carbon Dioxide Level 26 MMOL/L (21-32) Anion Gap 6 mmol/L (5-15) Blood Urea Nitrogen 10 mg/dL (7-18) Creatinine 0.8 MG/DL (0.55-1.30) Estimat Glomerular Filtration Rate > 60 mL/min (>60) Glucose Level 104 MG/DL (74-106) Calcium Level 7.7 MG/DL (8.5-10.1) L Current Medications Medications (Trade) Dose Ordered Sig/Inna Route PRN Reason Start Time Stop Time Status Last Admin Dose Admin Acetaminophen (Tylenol) 650 mg Q4H PRN NG fever 100.4, mild pain 11/01/19 23:15 12/01/19 23:14 11/05/19 10:39 Allopurinol (Zyloprim) 100 mg TID GT 11/02/19 09:00 12/02/19 08:59 11/05/19 12:14 Ascorbic Acid (Vitamin C) 500 mg DAILY GT 11/02/19 09:00 12/02/19 08:59 11/05/19 09:15 Carbidopa/Levodopa (Sinemet 25/100) 2 tab QID GT 11/02/19 09:00 12/02/19 08:59 11/05/19 12:14 Chlorhexidine Gluconate (Josefa-Hex 2%) 1 applic DAILY@2000 TOPIC 11/03/19 20:00 02/01/20 19:59 11/04/19 21:38 Daptomycin 500 mg/ Sodium Chloride 50 ml @ 100 mls/hr Q24H IV 11/02/19 16:00 11/09/19 15:59 11/04/19 17:15 Dextrose/Sodium Chloride 1,000 ml @ 75 mls/hr [id number] IV 11/03/19 21:00 12/03/19 20:59 11/05/19 12:14 Docusate Sodium (Colace) 100 mg DAILY GT 11/02/19 09:00 12/02/19 08:59 11/05/19 09:14 Donepezil HCl (Aricept) 10 mg QHS GT 11/02/19 21:00 12/02/19 20:59 11/04/19 21:38 Entacapone (Comtan) 400 mg THREE TIMES A DAY ORAL 11/02/19 18:00 12/02/19 17:59 11/05/19 12:14 Heparin Sodium/ Sodium Chloride (Heparin 1000 units/500ml Premix) 1,000 unit ONCE PRN IV radiology procedure 11/04/19 11:45 11/06/19 11:44 Lansoprazole (Prevacid) 30 mg BID GT 11/02/19 09:00 12/02/19 08:59 11/05/19 09:14 Lidocaine HCl (Xylocaine 1% 30ml) 30 ml ONCE PRN INJ radiology procedure 11/04/19 11:45 11/06/19 11:44 Metoclopramide HCl (Reglan) 5 mg Q6H PRN IVP nausea or vomiting 11/01/19 23:15 12/01/19 23:14 11/02/19 12:51 Morphine Sulfate (Morphine Sulfate) 2 mg Q3H PRN IVP Moderate Pain (Pain Scale 4-6) 11/02/19 08:36 11/09/19 08:35 Multivitamins (Multivitamins W/ Minerals 15ml Liquid) 15 ml DAILY GT 11/02/19 09:00 12/02/19 08:59 11/05/19 09:14 Ondansetron HCl (Zofran) 4 mg Q4H PRN IVP Nausea & Vomiting 11/01/19 23:15 12/01/19 23:14 Oxycodone HCl (Roxicodone) 10 mg Q4HR GT 11/02/19 09:00 11/09/19 08:59 11/05/19 12:13 Pantoprazole (Protonix) 40 mg DAILY IVP 11/05/19 09:00 12/05/19 08:59 11/05/19 09:16 Polyethylene Glycol (Miralax) 17 gm DAILY PRN GT Constipation 11/02/19 08:30 12/02/19 07:59 Polymyxin B Sulfate 182842 units/Dextrose 550 ml @ 550 mls/hr EVERY 12 HOURS IV 11/05/19 10:00 11/12/19 09:59 11/05/19 09:18 Quetiapine Fumarate (SEROqueL) 50 mg QHS GT 11/02/19 21:00 12/17/19 20:59 11/04/19 21:39 Sennosides (Senokot) 8.6 mg QHS GT 11/02/19 21:00 12/02/19 20:59 11/04/19 21:39 Zinc Oxide (Desitin) 1 applic FOUR TIMES A DAY TOPIC 11/04/19 14:00 12/04/19 13:59 11/05/19 12:14 González Yadav MD Nov 05, 2019 16:40
--- NOTE | 2019-11-05 16:50 | NUR ---
NURSE NOTES: Completed 1 unit pRBC transfusion in a safe manner per Dr. Prince's order. No acute distress noted. The patient is stable. Will continue plan of care.
[2019-11-05] MEDS: DAPTOmycin 500 MG in NS 50 ML IV SCH (17:20)
--- NOTE | 2019-11-05 17:30 | NUR ---
NURSE NOTES: Late administration of Daptomycin since the pharmacist brought the medication late. Administered medication as soon as the medication received from the pharmacy. Will closely monitor the patient. Will continue plan of care.
--- NOTE | 2019-11-05 18:30 | NUR ---
NURSE NOTES: Unable to administer 1800 GT route medications due to leakage on G tube and Dr. Reeves ordered not to use G tube until seen by Dr. Reeves. Administered rest of the medication. Will continue plan of care.
--- NOTE | 2019-11-05 19:30 | NUR ---
HAND-OFF: Report given to SRIKANTH Plaza. The patient is stable at this time. Endorsed plan of care.
--- NOTE | 2019-11-05 19:31 | NUR ---
NURSE NOTES: Received patient from SRIKANTH Coelho. Patient is obtunded, vss, on a compliance monitor, and with no acute distress. Patient cooperative with mild secretions from patients trach and secretions from newly inserted G-tube. G-tube site is red and pink with no other observed issues. MD notified of G-tube condition. Patient has a Shiley 6 trach, AC 20, TV 400, Fio2 40%, and PEEP of 5. Bailey is on place, patent and draining. Skin issues noted with IV site on her left lower leg, and a PICC on her right upper arm. Bed at its lowest position, locked, call light in reach, and x3 bed rails are up. Will continue to monitor.
[2019-11-05 20:00] VITALS: BP 125/63
[2019-11-05] MEDS: Dyna-Hex 2% Top Sol 2oz TOPIC SCH (20:35)
[2019-11-05] MEDS: Donepezil 10mg tab GT SCH (20:36)
[2019-11-05] MEDS: Sennosides 8.6mg tab GT SCH (20:37)
--- NOTE | 2019-11-05 22:25 | NUR ---
NURSE NOTES: G-tube medications not given until further notice. MD previously notified of excessive secretion from g-tube insertion site. Will continue to monitor.
--- NOTE | 2019-11-05 22:57 | Internal Med Progress Note ---
Subjective Date of Service: Nov 05, 2019 Physician Name Fredrick Prince Attending Physician Fredrick Prince MD Current Medications Medications (Trade) Dose Ordered Sig/Inna Route PRN Reason Start Time Stop Time Status Last Admin Dose Admin Acetaminophen (Tylenol) 650 mg Q4H PRN NG fever 100.4, mild pain 11/01/19 23:15 12/01/19 23:14 11/05/19 10:39 Allopurinol (Zyloprim) 100 mg TID GT 11/02/19 09:00 12/02/19 08:59 11/05/19 12:14 Ascorbic Acid (Vitamin C) 500 mg DAILY GT 11/02/19 09:00 12/02/19 08:59 11/05/19 09:15 Carbidopa/Levodopa (Sinemet 25/100) 2 tab QID GT 11/02/19 09:00 12/02/19 08:59 11/05/19 12:14 Chlorhexidine Gluconate (Josefa-Hex 2%) 1 applic DAILY@2000 TOPIC 11/03/19 20:00 02/01/20 19:59 11/05/19 20:35 Daptomycin 500 mg/ Sodium Chloride 50 ml @ 100 mls/hr Q24H IV 11/02/19 16:00 11/09/19 15:59 11/05/19 17:20 Dextrose/Sodium Chloride 1,000 ml @ 75 mls/hr [id number] IV 11/03/19 21:00 12/03/19 20:59 11/05/19 12:14 Docusate Sodium (Colace) 100 mg DAILY GT 11/02/19 09:00 12/02/19 08:59 11/05/19 09:14 Donepezil HCl (Aricept) 10 mg QHS GT 11/02/19 21:00 12/02/19 20:59 11/04/19 21:38 Entacapone (Comtan) 400 mg THREE TIMES A DAY ORAL 11/02/19 18:00 12/02/19 17:59 11/05/19 12:14 Heparin Sodium/ Sodium Chloride (Heparin 1000 units/500ml Premix) 1,000 unit ONCE PRN IV radiology procedure 11/04/19 11:45 11/06/19 11:44 Lansoprazole (Prevacid) 30 mg BID GT 11/02/19 09:00 12/02/19 08:59 11/05/19 09:14 Lidocaine HCl (Xylocaine 1% 30ml) 30 ml ONCE PRN INJ radiology procedure 11/04/19 11:45 11/06/19 11:44 Metoclopramide HCl (Reglan) 5 mg Q6H PRN IVP nausea or vomiting 11/01/19 23:15 12/01/19 23:14 11/02/19 12:51 Morphine Sulfate (Morphine Sulfate) 2 mg Q3H PRN IVP Moderate Pain (Pain Scale 4-6) 11/02/19 08:36 11/09/19 08:35 Multivitamins (Multivitamins W/ Minerals 15ml Liquid) 15 ml DAILY GT 11/02/19 09:00 12/02/19 08:59 11/05/19 09:14 Ondansetron HCl (Zofran) 4 mg Q4H PRN IVP Nausea & Vomiting 11/01/19 23:15 12/01/19 23:14 Oxycodone HCl (Roxicodone) 10 mg Q4HR GT 11/02/19 09:00 11/09/19 08:59 11/05/19 12:13 Pantoprazole (Protonix) 40 mg DAILY IVP 11/05/19 09:00 12/05/19 08:59 11/05/19 09:16 Polyethylene Glycol (Miralax) 17 gm DAILY PRN GT Constipation 11/02/19 08:30 12/02/19 07:59 Polymyxin B Sulfate 063953 units/Dextrose 550 ml @ 550 mls/hr EVERY 12 HOURS IV 11/05/19 10:00 11/12/19 09:59 11/05/19 09:18 Quetiapine Fumarate (SEROqueL) 50 mg QHS GT 11/02/19 21:00 12/17/19 20:59 11/04/19 21:39 Sennosides (Senokot) 8.6 mg QHS GT 11/02/19 21:00 12/02/19 20:59 11/04/19 21:39 Zinc Oxide (Desitin) 1 applic FOUR TIMES A DAY TOPIC 11/04/19 14:00 12/04/19 13:59 11/05/19 17:22 Allergies: Coded Allergies: PENICILLINS (Verified Allergy, Unknown, 11/01/19) VANCOMYCIN (Verified Allergy, Unknown, 11/01/19) Uncoded Allergies: PENICI (Allergy, Unknown, 11/01/19) ROS Limited/Unobtainable: Yes All Systems: reviewed and negative except above Subjective non verbal, chronic trach wbc rised +GPC in blood Objective Last Vital Signs Date Time Temp Pulse Resp B/P (MAP) Pulse Ox O2 Delivery O2 Flow Rate FiO2 11/05/19 20:00 Mechanical Ventilator 11/05/19 20:00 99.0 109 19 125/63 (83) 100 11/05/19 20:00 40 General Appearance: no apparent distress Cardiovascular: normal rate, regular rhythm, no JVD Respiratory/Chest: respiratory distress, rhonchi - bilaterally Abdomen: non tender, soft, other - Gtube leaking Extremities: other - various stages pressure ulcers Edema: other - +edema Neurologic: aphasia Skin: warm/dry, other - variuos stage pressure ulcers Laboratory Tests Test 11/05/19 05:20 White Blood Count 26.6 K/UL (4.8-10.8) *H Red Blood Count 2.73 M/UL (4.20-5.40) L Hemoglobin 7.8 G/DL (12.0-16.0) L Hematocrit 24.7 % (37.0-47.0) L Mean Corpuscular Volume 91 FL (80-99) Mean Corpuscular Hemoglobin 28.8 PG (27.0-31.0) Mean Corpuscular Hemoglobin Concent 31.7 G/DL (32.0-36.0) L Red Cell Distribution Width 14.8 % (11.6-14.8) Platelet Count 34 K/UL (150-450) L Mean Platelet Volume 11.5 FL (6.5-10.1) H Neutrophils (%) (Auto) % (45.0-75.0) Lymphocytes (%) (Auto) % (20.0-45.0) Monocytes (%) (Auto) % (1.0-10.0) Eosinophils (%) (Auto) % (0.0-3.0) Basophils (%) (Auto) % (0.0-2.0) Differential Total Cells Counted 100 Neutrophils % (Manual) 7 % (45-75) L Lymphocytes % (Manual) 28 % (20-45) Monocytes % (Manual) 5 % (1-10) Eosinophils % (Manual) 0 % (0-3) Basophils % (Manual) 0 % (0-2) Blast Cells % 60 % (0-0) *H Band Neutrophils 0 % (0-8) Platelet Estimate Decreased L Platelet Morphology Normal Polychromasia 2+ Hypochromasia 1+ Sodium Level 138 MMOL/L (136-145) Potassium Level 3.2 MMOL/L (3.5-5.1) L Chloride Level 106 MMOL/L (98-107) Carbon Dioxide Level 26 MMOL/L (21-32) Anion Gap 6 mmol/L (5-15) Blood Urea Nitrogen 10 mg/dL (7-18) Creatinine 0.8 MG/DL (0.55-1.30) Estimat Glomerular Filtration Rate > 60 mL/min (>60) Glucose Level 104 MG/DL (74-106) Calcium Level 7.7 MG/DL (8.5-10.1) L Intake and Output 11/04/19 11/05/19 19:00 07:00 Intake Total 1555 ml 1195 ml Output Total 400 ml 400 ml Balance 1155 ml 795 ml Intake Free Water 200 ml 200 ml IV Total 825 ml 625 ml Tube Feeding 210 ml 370 ml Other 320 ml Output Urine Total 400 ml 400 ml # Bowel Movements 1 Objective wbc rised peg leaking Assessment/Plan Status: deteriorating Assessment/Plan Impression: 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 MRSA bacteremia leukocytosis klebsiella UTI ovarian mass c/w neoplasm chronic resp failure s trach on ventilator advanced parkinson's diease dementia pancytopenia severe protein calorie malnutrition press sore unstageable, stage 4 sacrum contracture functional quadraplegia s/p PEG bedbound chronic indwelling dong catheter PEG malfunction Rectal VRE colonization Plan: plan for PEG J tube one unit PRBC today s/p PRBC tx x 2 units IV abx wound care f/u cx ID f/u electrolyte replete as needed enteral feeding ventilator pulm HHN dong pain control DNAR status Fredrick Prince MD Internal Medicine [phone] time spent today over 35 minutes stamp time on this note may NOT be the actual encounter time. Fredrick Prince MD Nov 05, 2019 22:57
[2019-11-06] VITALS: BP 126/60
[2019-11-06] MEDS: oxyCODONE 5mg IR tab GT SCH ×6 (01:00→20:33)
[2019-11-06] MEDS: D5NS 1,000 ML IV SCH ×2 (02:48→16:33)
[2019-11-06 04:00] VITALS: BP 110/49
--- NOTE | 2019-11-06 06:32 | NUR ---
NURSE NOTES: Bed bath given and pictures of wounds taken. Bilateral elbow protection and PICC line care completed. No BM to collect stool sample and RT unable to collect sputum sample.
--- NOTE | 2019-11-06 07:33 | NUR ---
HAND-OFF: Report given to SRIKANTH Jc.
--- NOTE | 2019-11-06 07:34 | NUR ---
NURSE NOTES: Received report from SRIKANTH Harry. Patient obtunded upon assessment. Tolerating vent settings well. No distress noted. Bailey intact. Will continue to monitor throughout shift.
[2019-11-06 07:51] LABS: HEMATOCRIT 29.6 % (37.0-47.0); HEMOGLOBIN 8.9 G/DL (12.0-16.0); MEAN CORPUSCULAR VOLUME 93 FL (80-99); PLATELET COUNT 30 K/UL (150-450); RED CELL DISTRIBUTION WIDTH 16.7 % (11.6-14.8)
[2019-11-06 07:53] LABS: WHITE BLOOD COUNT 37.9 K/UL (4.8-10.8)
[2019-11-06 08:00] VITALS: BP 117/63
--- NOTE | 2019-11-06 08:20 | Pulmonology Progress Note ---
Martha Chandler EXIT BOOTH AGENT 11/06/19 0820: Subjective ROS Limited/Unobtainable: Yes Allergies: Coded Allergies: PENICILLINS (Verified Allergy, Unknown, 11/01/19) VANCOMYCIN (Verified Allergy, Unknown, 11/01/19) Uncoded Allergies: PENICI (Allergy, Unknown, 11/01/19) All Systems: reviewed and negative except above Subjective ABG stable on current setting G tube replaced tx with 2 u PRBC WBC up to 37 this am , no fevers on abx per ID Objective Last 24 Hour Vital Signs Date Time Temp Pulse Resp B/P (MAP) Pulse Ox O2 Delivery O2 Flow Rate FiO2 11/06/19 06:51 88 25 40 11/06/19 04:00 99.0 91 18 110/49 (69) 98 11/06/19 04:00 Mechanical Ventilator 11/06/19 04:00 40 11/06/19 03:48 98 11/06/19 03:31 94 22 40 11/06/19 00:00 99.1 100 18 126/60 (82) 97 11/06/19 00:00 Mechanical Ventilator 11/05/19 23:34 100 11/05/19 23:27 113 31 40 11/05/19 20:00 Mechanical Ventilator 11/05/19 20:00 99.0 109 19 125/63 (83) 100 11/05/19 20:00 40 11/05/19 19:27 95 25 40 11/05/19 19:26 109 11/05/19 16:00 97.8 87 20 112/51 (71) 100 11/05/19 16:00 40 11/05/19 16:00 40 11/05/19 16:00 Mechanical Ventilator 11/05/19 16:00 89 11/05/19 15:06 95 23 40 11/05/19 12:00 40 11/05/19 12:00 97.1 89 20 116/60 (78) 100 11/05/19 12:00 Mechanical Ventilator 11/05/19 12:00 40 11/05/19 12:00 90 11/05/19 10:35 101 24 40 Intake and Output 11/05/19 11/06/19 19:00 07:00 Intake Total 740 ml 865.0 ml Output Total 600 ml 1100 ml Balance 140 ml -235.0 ml Intake Free Water 500 ml IV Total 865.0 ml Tube Feeding 240 ml Output Urine Total 600 ml 1100 ml # Voids 1 # Bowel Movements 2 Objective General Appearance: no apparent distress, other - bedridden, vent dependent female Lines, tubes and drains: peripheral HEENT: normocephalic, atraumatic, anicteric, status post trach - Shiley #6, secretions small amount, thin consistency, white color , Vent AC 400-40%-20 PEEP 5 Respiratory/Chest: no respiratory distress, few scattered rhonchi Cardiovascular/Chest: regular rhythm, RUE PICC intact Abdomen: non tender, soft, new G tube Extremities: no edema, other - spastic LE Skin Exam: warm/dry, other - multiple DTI POA ( sacral, ankle foot, elbow) Neurologic: abnormal gait - bedridden, not responsive Musculoskeletal: atrophy - BLE Microbiology Date/Time Source Procedure Growth Status 11/04/19 03:40 Blood Blood Culture - Preliminary NO GROWTH AFTER 48 HOURS Resulted 11/04/19 03:35 Blood Blood Culture - Preliminary NO GROWTH AFTER 48 HOURS Resulted Laboratory Tests 11/06/19 05:00: White Blood Count 37.9*H, Red Blood Count 3.20L, Hemoglobin 8.9L, Hematocrit 29.6L, Mean Corpuscular Volume 93, Mean Corpuscular Hemoglobin 27.7, Mean Corpuscular Hemoglobin Concent 29.9L, Red Cell Distribution Width 16.7H, Platelet Count 30L, Mean Platelet Volume 11.0H, Neutrophils (%) (Auto) , Lymphocytes (%) (Auto) , Monocytes (%) (Auto) , Eosinophils (%) (Auto) , Basophils (%) (Auto) , Neutrophils % (Manual) [Pending], Lymphocytes % (Manual) [Pending], Platelet Estimate [Pending], Platelet Morphology [Pending], Sodium Level [Pending], Potassium Level [Pending], Chloride Level [Pending], Carbon Dioxide Level [Pending], Blood Urea Nitrogen [Pending], Creatinine [Pending], Estimat Glomerular Filtration Rate [Pending], Glucose Level [Pending], Calcium Level [Pending], Magnesium Level [Pending], Total Bilirubin [Pending], Aspartate Amino Transf (AST/SGOT) [Pending], Alanine Aminotransferase (ALT/SGPT ) [Pending], Alkaline Phosphatase [Pending], Total Creatine Kinase [Pending], Total Protein [Pending], Albumin [Pending], Globulin [Pending] Current Medications Medications (Trade) Dose Ordered Sig/Inna Route PRN Reason Start Time Stop Time Status Last Admin Dose Admin Acetaminophen (Tylenol) 650 mg Q4H PRN NG fever 100.4, mild pain 11/01/19 23:15 12/01/19 23:14 11/05/19 10:39 Allopurinol (Zyloprim) 100 mg TID GT 11/02/19 09:00 12/02/19 08:59 11/05/19 12:14 Ascorbic Acid (Vitamin C) 500 mg DAILY GT 11/02/19 09:00 12/02/19 08:59 11/05/19 09:15 Carbidopa/Levodopa (Sinemet 25/100) 2 tab QID GT 11/02/19 09:00 12/02/19 08:59 11/05/19 12:14 Chlorhexidine Gluconate (Josefa-Hex 2%) 1 applic DAILY@2000 TOPIC 11/03/19 20:00 02/01/20 19:59 11/05/19 20:35 Daptomycin 500 mg/ Sodium Chloride 50 ml @ 100 mls/hr Q24H IV 11/02/19 16:00 11/09/19 15:59 11/05/19 17:20 Dextrose/Sodium Chloride 1,000 ml @ 75 mls/hr [id number] IV 11/03/19 21:00 12/03/19 20:59 11/06/19 02:48 Docusate Sodium (Colace) 100 mg DAILY GT 11/02/19 09:00 12/02/19 08:59 11/05/19 09:14 Donepezil HCl (Aricept) 10 mg QHS GT 11/02/19 21:00 12/02/19 20:59 11/04/19 21:38 Entacapone (Comtan) 400 mg THREE TIMES A DAY ORAL 11/02/19 18:00 12/02/19 17:59 11/05/19 12:14 Heparin Sodium/ Sodium Chloride (Heparin 1000 units/500ml Premix) 1,000 unit ONCE PRN IV radiology procedure 11/04/19 11:45 11/06/19 11:44 Lansoprazole (Prevacid) 30 mg BID GT 11/02/19 09:00 12/02/19 08:59 11/05/19 09:14 Lidocaine HCl (Xylocaine 1% 30ml) 30 ml ONCE PRN INJ radiology procedure 11/04/19 11:45 11/06/19 11:44 Metoclopramide HCl (Reglan) 5 mg Q6H PRN IVP nausea or vomiting 11/01/19 23:15 12/01/19 23:14 11/02/19 12:51 Morphine Sulfate (Morphine Sulfate) 2 mg Q3H PRN IVP Moderate Pain (Pain Scale 4-6) 11/02/19 08:36 11/09/19 08:35 Multivitamins (Multivitamins W/ Minerals 15ml Liquid) 15 ml DAILY GT 11/02/19 09:00 12/02/19 08:59 11/05/19 09:14 Ondansetron HCl (Zofran) 4 mg Q4H PRN IVP Nausea & Vomiting 11/01/19 23:15 12/01/19 23:14 Oxycodone HCl (Roxicodone) 10 mg Q4HR GT 11/02/19 09:00 11/09/19 08:59 11/05/19 12:13 Pantoprazole (Protonix) 40 mg DAILY IVP 11/05/19 09:00 12/05/19 08:59 11/05/19 09:16 Polyethylene Glycol (Miralax) 17 gm DAILY PRN GT Constipation 11/02/19 08:30 12/02/19 07:59 Polymyxin B Sulfate [id number] units/Dextrose 550 ml @ 550 mls/hr EVERY 12 HOURS IV 11/05/19 10:00 11/12/19 09:59 11/05/19 23:03 Quetiapine Fumarate (SEROqueL) 50 mg QHS GT 11/02/19 21:00 12/17/19 20:59 11/04/19 21:39 Sennosides (Senokot) 8.6 mg QHS GT 11/02/19 21:00 12/02/19 20:59 11/04/19 21:39 Zinc Oxide (Desitin) 1 applic FOUR TIMES A DAY TOPIC 11/04/19 14:00 12/04/19 13:59 11/05/19 23:03 Assessment/Plan Assessment/Plan ASSESSMENT Chronic respiratory failure ventilator dependent with tracheostomy status Sepsis MRSA bacteremia Probably pneumonia ? 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), s/p 2 u PRBC Pancytopenia Dysphagia, feeding by G-tube Advanced Parkinson's disease Severe protein calorie malnutrition Malfunctioning G tube ( inadvertently was removed) Multiple DTI , POA Ovarian mass consistent with neoplasm Suspected COVID-19 infection Severe protein calorie malnutrition Functional quadriplegia [employer] [facility] ventilator support, trach care, pulm toilet baseline ABG stable on current settings, keep as is and optimize as needed CXR11/03 Unchanged left lung infiltrates. get SCX CXR 11/04 -Interval placement of right PICC line tip to the mid SVC. -Hypoventilatory lungs. Bibasilar atelectasis/consolidations, similar to prior study. -Probable bilateral pleural effusions. BCX 10/31 05/28 Staph haemolyticus, likely contaminant BCX 11/01 05/28 MRSA BCX 11/03 NGTD ECHO with pEF 55%, no discrete vegetation seen UCX Klebsiella Carbapenem resistant abx as per ID recs , added Flagyl leuk rising, felt in addition to sepsis also contribution of AML COVID 19 by rapid testing 11/01 NGT, awaiting for the second result Venous Duplex BLE NGT, apply SCD, monitor HH with goal to keep Hgb >7, trend PLT severe pancytopenia likely 2 to AML leukocytosis 2 to sepsis and partially possibly due to malignancy IVF, replace lytes as needed, replace K monitor volumes asp precautions GT was inadvertently removed) s/p replacement 11/03 by GI started TF maintain strict aspir precautions protein supplement as per RD recs continue SNF meds as per primary supportive care bowel regimen wound care as per surgeon recs overall prognosis poor, given multiple comorbidities, with superimposed AML and ovarian mass, DNR/DNI status case discussed and evaluated by supervising physician Eugene Dan MD 11/06/19 1337: Subjective Allergies: Coded Allergies: PENICILLINS (Verified Allergy, Unknown, 11/01/19) VANCOMYCIN (Verified Allergy, Unknown, 11/01/19) Uncoded Allergies: PENICI (Allergy, Unknown, 11/01/19) Assessment/Plan Assessment/Plan Patient seen and examined with EXIT BOOTH AGENT. Agree with above A&P as it reflects our joint deliberations. Martha Chandler NP Nov 06, 2019 08:20 Eugene Dan MD Nov 06, 2019 13:37
[2019-11-06 08:27] LABS: ALANINE AMINOTRANSFERASE 7 U/L (12-78); ALBUMIN 1.9 G/DL (3.4-5.0); ALBUMIN/GLOBULIN RATIO 0.6 (1.0-2.7); ALKALINE PHOSPHATASE 56 U/L (46-116); ANION GAP 8 mmol/L (5-15); ASPARTATE AMINO TRANSFERASE 18 U/L (15-37); BILIRUBIN,TOTAL 0.5 MG/DL (0.2-1.0); BLOOD UREA NITROGEN 8 mg/dL (7-18); CALCIUM 7.6 MG/DL (8.5-10.1); CARBON DIOXIDE 24 MMOL/L (21-32); CHLORIDE 107 MMOL/L (98-107); CREATININE 0.7 MG/DL (0.55-1.30); POTASSIUM 3.6 MMOL/L (3.5-5.1); SODIUM 139 MMOL/L (136-145)
--- NOTE | 2019-11-06 08:27 | NUR ---
NURSE NOTES: Dr. Memberno paged for elevated WBC to 37.9 from 26.6(11/05/19). Awaiting for reply
--- NOTE | 2019-11-06 08:30 | NUR ---
NURSE NOTES: Dr. Membreno called back and ordered IV Flagyl 500mg Q8 for elevated WBC. Order read back and carried back.
--- NOTE | 2019-11-06 08:35 | NUR ---
NURSE NOTES: Dr. Hdz paged for thrombocytopenia 30k today. No new order received. Will continue monitor for s/s of bleeding
[2019-11-06 08:37] LABS: CREATINE KINASE 58 U/L (26-308)
--- NOTE | 2019-11-06 09:00 | NUR ---
NURSE NOTES: Made Leandro Biggs aware of leakage from G-tube. GJ tube insertion will be ordered for tomorrow per Dr. Reeves. Accu check Q6 with average sling scale and meds can be given thru G-tube until getting a new GJ tube.
--- NOTE | 2019-11-06 09:26 | Surgery Progress Note ---
Surgery Progress Note Subjective Additional Comments Afebrile, ill-appearing, on vent support rate 20 FiO2 40% PEEP of 5 leukocytosis blood cultures noted negative thus far Objective Last 24 Hour Vital Signs Date Time Temp Pulse Resp B/P (MAP) Pulse Ox O2 Delivery O2 Flow Rate FiO2 11/06/19 06:51 88 25 40 11/06/19 04:00 99.0 91 18 110/49 (69) 98 11/06/19 04:00 Mechanical Ventilator 11/06/19 04:00 40 11/06/19 03:48 98 11/06/19 03:31 94 22 40 11/06/19 00:00 99.1 100 18 126/60 (82) 97 11/06/19 00:00 Mechanical Ventilator 11/05/19 23:34 100 11/05/19 23:27 113 31 40 11/05/19 20:00 Mechanical Ventilator 11/05/19 20:00 99.0 109 19 125/63 (83) 100 11/05/19 20:00 40 11/05/19 19:27 95 25 40 11/05/19 19:26 109 11/05/19 16:00 97.8 87 20 112/51 (71) 100 11/05/19 16:00 40 11/05/19 16:00 40 11/05/19 16:00 Mechanical Ventilator 11/05/19 16:00 89 11/05/19 15:06 95 23 40 11/05/19 12:00 40 11/05/19 12:00 97.1 89 20 116/60 (78) 100 11/05/19 12:00 Mechanical Ventilator 11/05/19 12:00 40 11/05/19 12:00 90 11/05/19 10:35 101 24 40 I&O Intake and Output 11/05/19 11/06/19 19:00 07:00 Intake Total 740 ml 865.0 ml Output Total 600 ml 1100 ml Balance 140 ml -235.0 ml Intake Free Water 500 ml IV Total 865.0 ml Tube Feeding 240 ml Output Urine Total 600 ml 1100 ml # Voids 1 # Bowel Movements 2 Dressing: saturated Wound: other Drains: other Cardiovascular: RSR Respiratory: decreased breath sounds Abdomen: soft, non-tender, present bowel sounds Extremities: edema, no cyanosis, other Laboratory Tests Test 11/06/19 05:00 White Blood Count 37.9 K/UL (4.8-10.8) *H Red Blood Count 3.20 M/UL (4.20-5.40) L Hemoglobin 8.9 G/DL (12.0-16.0) L Hematocrit 29.6 % (37.0-47.0) L Mean Corpuscular Volume 93 FL (80-99) Mean Corpuscular Hemoglobin 27.7 PG (27.0-31.0) Mean Corpuscular Hemoglobin Concent 29.9 G/DL (32.0-36.0) L Red Cell Distribution Width 16.7 % (11.6-14.8) H Platelet Count 30 K/UL (150-450) L Mean Platelet Volume 11.0 FL (6.5-10.1) H Neutrophils (%) (Auto) % (45.0-75.0) Lymphocytes (%) (Auto) % (20.0-45.0) Monocytes (%) (Auto) % (1.0-10.0) Eosinophils (%) (Auto) % (0.0-3.0) Basophils (%) (Auto) % (0.0-2.0) Neutrophils % (Manual) Pending Lymphocytes % (Manual) Pending Platelet Estimate Pending Platelet Morphology Pending Sodium Level 139 MMOL/L (136-145) Potassium Level 3.6 MMOL/L (3.5-5.1) Chloride Level 107 MMOL/L (98-107) Carbon Dioxide Level 24 MMOL/L (21-32) Anion Gap 8 mmol/L (5-15) Blood Urea Nitrogen 8 mg/dL (7-18) Creatinine 0.7 MG/DL (0.55-1.30) Estimat Glomerular Filtration Rate > 60 mL/min (>60) Glucose Level 103 MG/DL (74-106) Calcium Level 7.6 MG/DL (8.5-10.1) L Magnesium Level 1.9 MG/DL (1.8-2.4) Total Bilirubin 0.5 MG/DL (0.2-1.0) Aspartate Amino Transf (AST/SGOT) 18 U/L (15-37) Alanine Aminotransferase (ALT/SGPT) 7 U/L (12-78) L Alkaline Phosphatase 56 U/L (46-116) Total Creatine Kinase 58 U/L (26-308) Total Protein 5.2 G/DL (6.4-8.2) L Albumin 1.9 G/DL (3.4-5.0) L Globulin 3.3 g/dL Albumin/Globulin Ratio 0.6 (1.0-2.7) L Plan Problems: (1) Decubitus skin ulcer Assessment & Plan: Pt presented on admission with multiple Pressure Injuries, and contractures. Large Soft Mass noted to lateral R chest ,just inferior to Breast.Soft mass that uis violaceous and denuded. Unstageable Pressure injury R thoracic. Wound presents as partially opened DTPI( L)6cm x (W)8.5cm. 95% Soft eschar flap,5% dee. Marginal erythema along borders In addition scattered linear and purple area periwound. Full thickness stage 4 Sacral Pressure Injury(L)9.3cm x (W)8.7cm. Base of wound is 95% necrotic,but bone is palpable.Mild odor noted. No exudate noted. Non-blanching erythema periwound. Unstageable Pressure Injury R trochanter(L)3.5cm x (W)4.2cm. Base of wound is 90 % soft eschar, 10% pink epithelial. Edges adherent to base of wound .No erythema induration or fluctuance periwound. Unstageable Pressure injury R Ischium(L)3.5cm x (W)2.5cm. Dry eschar at base of wound, edges are adherent with surrounding pink epithelial. No erythema or induration periwound. DTPI L trochanter(L)4cm x (W)1cm. Stable dry eschar L Hallux(L)1.6cm x (W)2cm.NO erythema fluctuance or induration periwound. L 1st metatarsal TMA noted. Stable dry eschar distal/lateral L foot (L)1.5cm x (W)3cm. No erythema, induration or fluctuance periwound. DTPI noted to plantar L foot.(L)0.9cm x (W)0.9cm. Base of wound is fluctuant, purple with maroon borders. Unstageable Pressure injury L lateral Malleolus. Stable dry eschar noted.No erythema or induration periwound. L heel is boggy with non-blanching erythema. Unstageable Pressure injury R Hallux and plantar aspect(L)3.5cm x (W)3.4cm. Soft eschar at base of wound with marginal erythema along borders. R heel is boggy with Non-Blanching erythema. Unstageable Presure injury distal/Lateral R foot . Stable dry eschar noted . No erythema of fluctuance periwound. Tx.Plan: Cleanse Sacral Wound with Saline. Loosely pack with Therahoney impregnated Kerlix.Applpy Moisture Barrier Paste periwound. Cover with Optifoam drsg. Change Daily and prn. Cleanse Soft Mass R chest with Saline. Cover with Optifoam drsg. Change Daily and prn. Cleanse wounds R trochanter, R Ischium with Saline. Apply Moisture Barrier Paste.Cover with Optifoam drsg. Change every 3 days and prn. Apply Moisture Barrier to L trochanter. Cvoer with Optifoam drsg. Change every 3 days and prn. Apply Betadine to wounds R and L foot. Cover each wound with Optifoam drsg. Changee very 3 days and prn. Apply Cavilon Skin Barrier to both heels. Cover each heel with Optifoam drsg. Change every 7 days and prn. APM/ANA Mattress overlay. turn q2h nutritional optimization (2) Malnutrition Assessment & Plan: DAILY ESTIMATED NEEDS: Needs based on Critical care, wounds, 64kg 22-28 kcals/kg 8208-6062 total kcals 1.25-2 g protein/kg 80-128 g total protein 25-30 mL/kg 5739-9434 total fluid mLs NUTRITION DIAGNOSIS: Swallowing difficulty r/t respiratory status as evidenced by pt is trach and peg dep. CURRENT TF:Osmolite 1.5 @40 ml/hr x24 hrs ENTERAL NUTRITION RECOMMENDATIONS: VITAL AF 1.2 goal of 55ml/hr x24 hrs to provide 1320ml, 1584 kcal, 99g pro, 1071ml free H2O -> [employer] pt on elemental formula-> rec VITAL AF for critical care, high protein and hydrolyzed proteins. - Start @25ml/hr for 6 hrs, advance as tolerated 10ml/hr q4-6 hrs to goal - Flush per MD - HOB over 30 degrees ADDITIONAL RECOMMENDATIONS: 1) Per SNF: 65 inches (5'5"); 141 lbs (64.1kg) 2) TF recs as above 3) F/up w/ WC eval -> add MEIR BID via GT (3) Anemia Assessment & Plan: transfused trend labs no active bleeding stool study GI eval (4) UTI (urinary tract infection) (5) Tracheostomy dependence Assessment & Plan: Findings: The left hemidiaphragm is elevated. Atelectatic changes are present in the left lung base. There is minimal right basilar atelectasis. No definite infiltrates. There is a tracheostomy. Impression: Elevated left hemidiaphragm with considerable left basilar atelectasis. Less extensive right basilar atelectasis. Inspiration is suboptimal. Interim development of opacity of the left mid and lower lung. The left hemidiaphragm is obscured. Right lung is probably clear , although there is crowding of bronchovascular lung volumes. Tracheostomy remains. Impression: Since 11/01/2019, interim development of left mid and lower lung infiltrates versus edema and possibly pleural fluid Juan Houser Nov 06, 2019 09:26
--- NOTE | 2019-11-06 09:26 | General Progress Note ---
Assessment/Plan Status: progressing Assessment/Plan: 1. AML. 2. Respiratory failure with vent. 3. Dysphagia with G-tube. 4. Ovarian mass. 5. Advanced Parkinson disease. 6. Anemia requiring blood transfusion in the past. 7. Dementia. 8. Pancytopenia. GT has been changed at the bedside but now leaking again will need GJT placement plan for tomorrow if patient stable given low PLT and leukocytosis fu H&H transfuse prn Subjective ROS Limited/Unobtainable: No Allergies: Coded Allergies: PENICILLINS (Verified Allergy, Unknown, 11/01/19) VANCOMYCIN (Verified Allergy, Unknown, 11/01/19) Uncoded Allergies: PENICI (Allergy, Unknown, 11/01/19) Objective Last 24 Hour Vital Signs Date Time Temp Pulse Resp B/P (MAP) Pulse Ox O2 Delivery O2 Flow Rate FiO2 11/06/19 06:51 88 25 40 11/06/19 04:00 99.0 91 18 110/49 (69) 98 11/06/19 04:00 Mechanical Ventilator 11/06/19 04:00 40 11/06/19 03:48 98 11/06/19 03:31 94 22 40 11/06/19 00:00 99.1 100 18 126/60 (82) 97 11/06/19 00:00 Mechanical Ventilator 11/05/19 23:34 100 11/05/19 23:27 113 31 40 11/05/19 20:00 Mechanical Ventilator 11/05/19 20:00 99.0 109 19 125/63 (83) 100 11/05/19 20:00 40 11/05/19 19:27 95 25 40 11/05/19 19:26 109 11/05/19 16:00 97.8 87 20 112/51 (71) 100 11/05/19 16:00 40 11/05/19 16:00 40 11/05/19 16:00 Mechanical Ventilator 11/05/19 16:00 89 11/05/19 15:06 95 23 40 11/05/19 12:00 40 11/05/19 12:00 97.1 89 20 116/60 (78) 100 11/05/19 12:00 Mechanical Ventilator 11/05/19 12:00 40 11/05/19 12:00 90 11/05/19 10:35 101 24 40 Intake and Output 11/05/19 11/06/19 19:00 07:00 Intake Total 740 ml 865.0 ml Output Total 600 ml 1100 ml Balance 140 ml -235.0 ml Intake Free Water 500 ml IV Total 865.0 ml Tube Feeding 240 ml Output Urine Total 600 ml 1100 ml # Voids 1 # Bowel Movements 2 Laboratory Tests 11/06/19 05:00: White Blood Count 37.9*H, Red Blood Count 3.20L, Hemoglobin 8.9L, Hematocrit 29.6L, Mean Corpuscular Volume 93, Mean Corpuscular Hemoglobin 27.7, Mean Corpuscular Hemoglobin Concent 29.9L, Red Cell Distribution Width 16.7H, Platelet Count 30L, Mean Platelet Volume 11.0H, Neutrophils (%) (Auto) , Lymphocytes (%) (Auto) , Monocytes (%) (Auto) , Eosinophils (%) (Auto) , Basophils (%) (Auto) , Neutrophils % (Manual) [Pending], Lymphocytes % (Manual) [Pending], Platelet Estimate [Pending], Platelet Morphology [Pending], Sodium Level 139, Potassium Level 3.6, Chloride Level 107, Carbon Dioxide Level 24, Anion Gap 8, Blood Urea Nitrogen 8, Creatinine 0.7, Estimat Glomerular Filtration Rate > 60, Glucose Level 103, Calcium Level 7.6L, Magnesium Level 1.9 , Total Bilirubin 0.5, Aspartate Amino Transf (AST/SGOT) 18, Alanine Aminotransferase (ALT/SGPT) 7L, Alkaline Phosphatase 56, Total Creatine Kinase 58, Total Protein 5.2L, Albumin 1.9L, Globulin 3.3, Albumin/Globulin Ratio 0.6L Height (Feet): 5 Height (Inches): 4.00 Weight (Pounds): 153 General Appearance: lethargic EENT: PERRL/EOMI Neck: supple Cardiovascular: bradycardia Respiratory/Chest: decreased breath sounds Abdomen: normal bowel sounds, non tender, soft Extremities: non-tender Negro Reeves MD Nov 06, 2019 09:26
[2019-11-06] MEDS: Pantoprazole Inj IVP SCH (09:28)
[2019-11-06] MEDS: Docusate 100mg/10ml Liq GT SCH (09:29)
[2019-11-06] MEDS: Entacapone 200mg tab ORAL SCH ×3 (09:32→17:24)
[2019-11-06] MEDS: Ascorbic Acid 500mg tab GT SCH (09:33)
[2019-11-06] MEDS: Allopurinol 100mg Tab GT SCH ×3 (09:34→17:24)
[2019-11-06] MEDS: Levodopa/Carbidopa 25/100 tab GT SCH ×4 (09:34→20:34)
[2019-11-06] MEDS: Polymyxin B Sulfate 500,000 UNITS in D5W 500ml 550 ML IV SCH ×2 (09:35→21:13)
[2019-11-06] MEDS: Multivitamins W/Minerals 15 ML UDC GT SCH (09:36)
[2019-11-06] MEDS: Desitin Rash Paste TOPIC SCH ×4 (09:36→20:34)
--- NOTE | 2019-11-06 10:00 | NUR ---
NURSE NOTES: Sputum culture collected and sent to lab. Made aware of new orders and carried out as planned.
[2019-11-06 12:00] VITALS: BP 141/65
[2019-11-06] MEDS: NovoLOG Insulin Flexpen SUBQ SCH ×3 (12:00→23:44)
--- NOTE | 2019-11-06 13:12 | Internal Med Progress Note ---
Subjective Date of Service: Nov 06, 2019 Physician Name Fredrick Prince Attending Physician Fredrick Prince MD Current Medications Medications (Trade) Dose Ordered Sig/Inna Route PRN Reason Start Time Stop Time Status Last Admin Dose Admin Acetaminophen (Tylenol) 650 mg Q4H PRN NG fever 100.4, mild pain 11/01/19 23:15 12/01/19 23:14 11/05/19 10:39 Allopurinol (Zyloprim) 100 mg TID GT 11/02/19 09:00 12/02/19 08:59 11/06/19 12:15 Ascorbic Acid (Vitamin C) 500 mg DAILY GT 11/02/19 09:00 12/02/19 08:59 11/06/19 09:33 Carbidopa/Levodopa (Sinemet 25/100) 2 tab QID GT 11/02/19 09:00 12/02/19 08:59 11/06/19 12:16 Chlorhexidine Gluconate (Josefa-Hex 2%) 1 applic DAILY@2000 TOPIC 11/03/19 20:00 02/01/20 19:59 11/05/19 20:35 Daptomycin 500 mg/ Sodium Chloride 50 ml @ 100 mls/hr Q24H IV 11/02/19 16:00 11/09/19 15:59 11/05/19 17:20 Dextrose (Dextrose 50%) 25 ml Q30M PRN IV Hypoglycemia 11/06/19 09:15 02/04/20 09:14 Dextrose (Dextrose 50%) 50 ml Q30M PRN IV Hypoglycemia 11/06/19 09:15 02/04/20 09:14 Dextrose/Sodium Chloride 1,000 ml @ 75 mls/hr [id number] IV 11/03/19 21:00 12/03/19 20:59 11/06/19 02:48 Docusate Sodium (Colace) 100 mg DAILY GT 11/02/19 09:00 12/02/19 08:59 11/06/19 09:29 Donepezil HCl (Aricept) 10 mg QHS GT 11/02/19 21:00 12/02/19 20:59 11/04/19 21:38 Entacapone (Comtan) 400 mg THREE TIMES A DAY ORAL 11/02/19 18:00 12/02/19 17:59 11/06/19 12:16 Insulin Aspart (NovoLOG) Q6HR SUBQ 11/06/19 12:00 02/04/20 11:59 Lansoprazole (Prevacid) 30 mg BID GT 11/02/19 09:00 12/02/19 08:59 11/06/19 09:32 Metoclopramide HCl (Reglan) 5 mg Q6H PRN IVP nausea or vomiting 11/01/19 23:15 12/01/19 23:14 11/02/19 12:51 Metronidazole 100 ml @ 100 mls/hr Q8HR IVPB 11/06/19 14:00 11/13/19 13:59 Morphine Sulfate (Morphine Sulfate) 2 mg Q3H PRN IVP Moderate Pain (Pain Scale 4-6) 11/02/19 08:36 11/09/19 08:35 Multivitamins (Multivitamins W/ Minerals 15ml Liquid) 15 ml DAILY GT 11/02/19 09:00 12/02/19 08:59 11/06/19 09:36 Ondansetron HCl (Zofran) 4 mg Q4H PRN IVP Nausea & Vomiting 11/01/19 23:15 12/01/19 23:14 Oxycodone HCl (Roxicodone) 10 mg Q4HR GT 11/02/19 09:00 11/09/19 08:59 11/06/19 12:15 Pantoprazole (Protonix) 40 mg DAILY IVP 11/05/19 09:00 12/05/19 08:59 11/06/19 09:28 Polyethylene Glycol (Miralax) 17 gm DAILY PRN GT Constipation 11/02/19 08:30 12/02/19 07:59 Polymyxin B Sulfate 413189 units/Dextrose 550 ml @ 550 mls/hr EVERY 12 HOURS IV 11/05/19 10:00 11/12/19 09:59 11/06/19 09:35 Quetiapine Fumarate (SEROqueL) 50 mg QHS GT 11/02/19 21:00 12/17/19 20:59 11/04/19 21:39 Sennosides (Senokot) 8.6 mg QHS GT 11/02/19 21:00 12/02/19 20:59 11/04/19 21:39 Zinc Oxide (Desitin) 1 applic FOUR TIMES A DAY TOPIC 11/04/19 14:00 12/04/19 13:59 11/06/19 12:16 Allergies: Coded Allergies: PENICILLINS (Verified Allergy, Unknown, 11/01/19) VANCOMYCIN (Verified Allergy, Unknown, 11/01/19) Uncoded Allergies: PENICI (Allergy, Unknown, 11/01/19) ROS Limited/Unobtainable: Yes All Systems: reviewed and negative except above Subjective non verbal, chronic trach wbc rised +GPC in blood Objective Last Vital Signs Date Time Temp Pulse Resp B/P (MAP) Pulse Ox O2 Delivery O2 Flow Rate FiO2 11/06/19 12:00 97.9 91 20 141/65 (90) 100 11/06/19 12:00 Mechanical Ventilator 11/06/19 12:00 40 General Appearance: other - ill looking Cardiovascular: normal rate, regular rhythm Respiratory/Chest: rhonchi - bilaterally Abdomen: normal bowel sounds, non tender, soft Skin: warm/dry, other - various stage pressure ulcers Laboratory Tests Test 11/06/19 05:00 White Blood Count 37.9 K/UL (4.8-10.8) *H Red Blood Count 3.20 M/UL (4.20-5.40) L Hemoglobin 8.9 G/DL (12.0-16.0) L Hematocrit 29.6 % (37.0-47.0) L Mean Corpuscular Volume 93 FL (80-99) Mean Corpuscular Hemoglobin 27.7 PG (27.0-31.0) Mean Corpuscular Hemoglobin Concent 29.9 G/DL (32.0-36.0) L Red Cell Distribution Width 16.7 % (11.6-14.8) H Platelet Count 30 K/UL (150-450) L Mean Platelet Volume 11.0 FL (6.5-10.1) H Neutrophils (%) (Auto) % (45.0-75.0) Lymphocytes (%) (Auto) % (20.0-45.0) Monocytes (%) (Auto) % (1.0-10.0) Eosinophils (%) (Auto) % (0.0-3.0) Basophils (%) (Auto) % (0.0-2.0) Differential Total Cells Counted 100 Neutrophils % (Manual) 7 % (45-75) L Lymphocytes % (Manual) 21 % (20-45) Monocytes % (Manual) 8 % (1-10) Eosinophils % (Manual) 2 % (0-3) Basophils % (Manual) 0 % (0-2) Blast Cells % 62 % (0-0) *H Band Neutrophils 0 % (0-8) Nucleated Red Blood Cells 1 /100 WBC Platelet Estimate Decreased L Platelet Morphology Normal Polychromasia 1+ Hypochromasia 1+ Anisocytosis 1+ Sodium Level 139 MMOL/L (136-145) Potassium Level 3.6 MMOL/L (3.5-5.1) Chloride Level 107 MMOL/L (98-107) Carbon Dioxide Level 24 MMOL/L (21-32) Anion Gap 8 mmol/L (5-15) Blood Urea Nitrogen 8 mg/dL (7-18) Creatinine 0.7 MG/DL (0.55-1.30) Estimat Glomerular Filtration Rate > 60 mL/min (>60) Glucose Level 103 MG/DL (74-106) Calcium Level 7.6 MG/DL (8.5-10.1) L Magnesium Level 1.9 MG/DL (1.8-2.4) Total Bilirubin 0.5 MG/DL (0.2-1.0) Aspartate Amino Transf (AST/SGOT) 18 U/L (15-37) Alanine Aminotransferase (ALT/SGPT) 7 U/L (12-78) L Alkaline Phosphatase 56 U/L (46-116) Total Creatine Kinase 58 U/L (26-308) Total Protein 5.2 G/DL (6.4-8.2) L Albumin 1.9 G/DL (3.4-5.0) L Globulin 3.3 g/dL Albumin/Globulin Ratio 0.6 (1.0-2.7) L Microbiology Date/Time Source Procedure Growth Status 11/04/19 03:40 Blood Blood Culture - Preliminary NO GROWTH AFTER 48 HOURS Resulted 11/04/19 03:35 Blood Blood Culture - Preliminary NO GROWTH AFTER 48 HOURS Resulted Intake and Output 11/05/19 11/06/19 19:00 07:00 Intake Total 740 ml 865.0 ml Output Total 600 ml 1100 ml Balance 140 ml -235.0 ml Intake Free Water 500 ml IV Total 865.0 ml Tube Feeding 240 ml Output Urine Total 600 ml 1100 ml # Voids 1 # Bowel Movements 2 Objective wbc rised 38k peg leaking Assessment/Plan Status: stable, not improved Assessment/Plan Impression: 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 MRSA bacteremia leukocytosis klebsiella UTI ovarian mass c/w neoplasm chronic resp failure s trach on ventilator advanced parkinson's diease dementia pancytopenia severe protein calorie malnutrition press sore unstageable, stage 4 sacrum contracture functional quadraplegia s/p PEG bedbound chronic indwelling dong catheter PEG malfunction Rectal VRE colonization Plan: plan for PEG J tube ad flagyl IV dw/ ID leukocytosis could be AML flare s/p 3 units PRBC tx so far IV abx wound care f/u cx ID f/u electrolyte replete as needed enteral feeding ventilator pulm HHN dong pain control DNAR status Fredrick Prince MD Internal Medicine [phone] time spent today over 35 minutes stamp time on this note may NOT be the actual encounter time. Fredrick Prince MD Nov 06, 2019 13:12
[2019-11-06 16:00] VITALS: BP 104/55
[2019-11-06] MEDS: DAPTOmycin 500 MG in NS 50 ML IV SCH (16:33)
[2019-11-06] MEDS ORDERED: D5NS 1000ml IV ONE (17:54)
--- NOTE | 2019-11-06 18:58 | NUR ---
RESPIRATORY NOTE: Received pt on AC 20, 400VT, 40%, PEEP +5. Pt is trach-dependent w/ a cuffed, Shiley 6 tube. Pt is asleep/disoriented. B/S love. rhonchi, sxn small amounts of thick/thin, hein-yellow secretions. Vent plugged into red outlet, ambubag at bedside. Pt in no apparent distress at this time. Will continue plan of care.
--- NOTE | 2019-11-06 19:15 | NUR ---
HAND-OFF: Report given to So Ri. patient in stable condition. endorsed procedures due 11/07/19.
--- NOTE | 2019-11-06 19:16 | NUR ---
NURSE NOTES: received pt from Min RN,. pt is awake and Obtunded. No SOB noted with trach. O2 sat is at 100%. dong cath is draining well with gravity. Gtube site clean and intact.right upper arm PICC line intact, clean, and patent. call light within reach. bed at the lowest position, alarmed, and locked. will continue to monitor pt with plan of care.
[2019-11-06 20:00] VITALS: BP 115/56
[2019-11-06] MEDS: Sennosides 8.6mg tab GT SCH (20:32)
[2019-11-06] MEDS: Dyna-Hex 2% Top Sol 2oz TOPIC SCH (20:32)
[2019-11-06] MEDS: Donepezil 10mg tab GT SCH (20:33)
[2019-11-07] VITALS: BP 113/60
[2019-11-07] MEDS: oxyCODONE 5mg IR tab GT SCH ×6 (01:41→21:34)
[2019-11-07 04:00] VITALS: BP 117/68
--- NOTE | 2019-11-07 04:00 | NUR ---
NURSE NOTES: cleaned pt, oral care give, provided new gown, repositioned pt Q 2hrs. no active bleeding noted, no SOB noted. pt is sleeping at this time. call light within reach. will continue to monitor pt.
[2019-11-07] MEDS: NovoLOG Insulin Flexpen SUBQ SCH ×3 (05:15→17:52)
[2019-11-07] MEDS: D5NS 1,000 ML IV SCH ×2 (05:22→18:17)
[2019-11-07 06:33] LABS: HEMATOCRIT 29.7 % (37.0-47.0); HEMOGLOBIN 8.8 G/DL (12.0-16.0); MEAN CORPUSCULAR VOLUME 93 FL (80-99); PLATELET COUNT 42 K/UL (150-450); RED BLOOD COUNT 3.19 M/UL (4.20-5.40); RED CELL DISTRIBUTION WIDTH 17.1 % (11.6-14.8)
[2019-11-07 06:39] LABS: WHITE BLOOD COUNT 31.8 K/UL (4.8-10.8)
--- NOTE | 2019-11-07 07:10 | NUR ---
HAND-OFF: Report given to Nancy RN., and Hosea RN., pt is in stable condition, endorsed plan of care.
[2019-11-07 07:27] LABS: ANION GAP 9 mmol/L (5-15); BLOOD UREA NITROGEN 5 mg/dL (7-18); CALCIUM 7.7 MG/DL (8.5-10.1); CARBON DIOXIDE 24 MMOL/L (21-32); CHLORIDE 107 MMOL/L (98-107); CREATININE 0.7 MG/DL (0.55-1.30); POTASSIUM 3.2 MMOL/L (3.5-5.1); SODIUM 140 MMOL/L (136-145)
--- NOTE | 2019-11-07 07:35 | NUR ---
NURSE NOTES: Received report from SRIKANTH Ro. Patient in bed resting, no active s/s cardiac, respiratory distress noticed at this time. Patient SR with HR 90, Obtundent, Endorsed NPO status prior to GJT placement. PICC line on right upper arm, D5 NS running @ 75ml/h. Patient on vent to trach, AC 20 TV 400 Fio2 40 PEEP 5, O2 sat 100% at this time. Patient bilateral upper and lower legs warm to touch, T 98.7. Bed in lowest position, locked, side rails upx3, call light within reach, bed alarm on. Will continue to monitor. Addendum: 11/07/19 at 0756 by SANJANA MARTINO RN Bailey Catheter draining well to gravity.
[2019-11-07 08:00] VITALS: BP 109/54
--- NOTE | 2019-11-07 08:20 | Anethesia Preoperative Eval ---
Anesthesia Pre-op PMH/ROS General Mallampati Score Class I : Soft palate, uvula, fauces, pillars visible Class II: Soft palate, uvula, fauces visible Class III: Soft palate, base of uvula visible Class IV: Only hard plate visible Allergies: Coded Allergies: PENICILLINS (Verified Allergy, Unknown, 11/01/19) VANCOMYCIN (Verified Allergy, Unknown, 11/01/19) Uncoded Allergies: PENICI (Allergy, Unknown, 11/01/19) Anesthesia Pre-op Phys. Exam Physician Exam Last Vital Signs Date Time Temp Pulse Resp B/P (MAP) Pulse Ox O2 Delivery O2 Flow Rate FiO2 11/07/19 07:20 92 23 40 11/07/19 04:00 98.5 117/68 (84) 100 11/07/19 04:00 Mechanical Ventilator Anesthesia Pre-op A/P Labs Hematology Test 11/07/19 06:10 White Blood Count 31.8 K/UL (4.8-10.8) *H Red Blood Count 3.19 M/UL (4.20-5.40) L Hemoglobin 8.8 G/DL (12.0-16.0) L Hematocrit 29.7 % (37.0-47.0) L Mean Corpuscular Volume 93 FL (80-99) Mean Corpuscular Hemoglobin 27.6 PG (27.0-31.0) Mean Corpuscular Hemoglobin Concent 29.6 G/DL (32.0-36.0) L Red Cell Distribution Width 17.1 % (11.6-14.8) H Platelet Count 42 K/UL (150-450) L Mean Platelet Volume FL (6.5-10.1) Neutrophils (%) (Auto) % (45.0-75.0) Lymphocytes (%) (Auto) % (20.0-45.0) Monocytes (%) (Auto) % (1.0-10.0) Eosinophils (%) (Auto) % (0.0-3.0) Basophils (%) (Auto) % (0.0-2.0) Differential Total Cells Counted 100 Neutrophils % (Manual) 9 % (45-75) L Lymphocytes % (Manual) 17 % (20-45) L Monocytes % (Manual) 6 % (1-10) Eosinophils % (Manual) 1 % (0-3) Basophils % (Manual) 0 % (0-2) Blast Cells % 67 % (0-0) *H Band Neutrophils 0 % (0-8) Platelet Estimate Decreased L Platelet Morphology Normal Polychromasia 1+ Hypochromasia 1+ Anisocytosis 1+ Chemistry Test 11/07/19 06:10 Sodium Level 140 MMOL/L (136-145) Potassium Level 3.2 MMOL/L (3.5-5.1) L Chloride Level 107 MMOL/L (98-107) Carbon Dioxide Level 24 MMOL/L (21-32) Anion Gap 9 mmol/L (5-15) Blood Urea Nitrogen 5 mg/dL (7-18) L Creatinine 0.7 MG/DL (0.55-1.30) Estimat Glomerular Filtration Rate > 60 mL/min (>60) Glucose Level 111 MG/DL (74-106) H Calcium Level 7.7 MG/DL (8.5-10.1) L Aylin Mei MD Nov 07, 2019 08:20
[2019-11-07] MEDS: Docusate 100mg/10ml Liq GT SCH (08:23)
[2019-11-07] MEDS: Ascorbic Acid 500mg tab GT SCH (08:23)
[2019-11-07] MEDS: Multivitamins W/Minerals 15 ML UDC GT SCH (08:23)
[2019-11-07] MEDS: Allopurinol 100mg Tab GT SCH ×3 (08:23→17:51)
[2019-11-07] MEDS: Pantoprazole Inj IVP SCH (08:26)
[2019-11-07] MEDS: Entacapone 200mg tab ORAL SCH ×3 (08:26→17:50)
[2019-11-07] MEDS: Desitin Rash Paste TOPIC SCH ×4 (08:27→21:39)
[2019-11-07] MEDS: Levodopa/Carbidopa 25/100 tab GT SCH ×4 (08:28→21:33)
[2019-11-07] MEDS: Polymyxin B Sulfate 500,000 UNITS in D5W 500ml 550 ML IV SCH ×2 (08:30→21:29)
--- NOTE | 2019-11-07 09:18 | Pre-Procedure Note/Attestation ---
Pre-Procedure Note/Attestation Complete Prior to Procedure Planned Procedure: not applicable Procedure Narrative: egd Indications for Procedure Pre-Operative Diagnosis: dysphagia Attestation I attest that I discussed the nature of the procedure; its benefits; risks and complications; and alternatives (and the risks and benefits of such alternatives ), prior to the procedure, with the patient (or the patient's legal kiosk sales representative). I attest that, if there was a reasonable possibility of needing a blood transfusion, the patient (or the patient's legal kiosk sales representative) was given the [facility] standardized written summary, pursuant to the [place] Blood Safety Act ([place] Health and Safety Code # 1645, as amended). I attest that I re-evaluated the patient just prior to the surgery and that there has been no change in the patient's H&P, except as documented below: Negro Reeves MD Nov 07, 2019 09:18
--- NOTE | 2019-11-07 09:20 | Diagnostic Imaging Report ---
Procedure: XRAY Chest 1v Reason for study: Shortness of breath. Comparison films: 11/05/2019. FINDINGS: Tracheostomy and right PICC line remain in place. There is limited inspiration with bibasilar densities unchanged. Cardiac and mediastinal silhouette are within normal limits. No large effusion seen The bony thorax appear unremarkable. IMPRESSION: NO SIGNIFICANT CHANGE COMPARED TO PREVIOUS EXAM.
--- NOTE | 2019-11-07 10:04 | Pulmonology Progress Note ---
Martha Chandler DISABILITIES SERVICES OFFICER 11/07/19 1004: Subjective ROS Limited/Unobtainable: Yes Allergies: Coded Allergies: PENICILLINS (Verified Allergy, Unknown, 11/01/19) VANCOMYCIN (Verified Allergy, Unknown, 11/01/19) Uncoded Allergies: PENICI (Allergy, Unknown, 11/01/19) All Systems: reviewed and negative except above Subjective no signs of resp distress on current settings G tube replaced tx with 2 u PRBC WBC down , still significant 31.8 no fevers Objective Last 24 Hour Vital Signs Date Time Temp Pulse Resp B/P (MAP) Pulse Ox O2 Delivery O2 Flow Rate FiO2 11/07/19 08:00 40 11/07/19 08:00 98.2 95 20 109/54 (72) 100 11/07/19 07:20 92 23 40 11/07/19 04:00 98.5 90 20 117/68 (84) 100 11/07/19 04:00 40 11/07/19 04:00 Mechanical Ventilator 11/07/19 03:29 100 11/07/19 03:04 100 25 40 11/07/19 00:00 Mechanical Ventilator 11/07/19 00:00 97.6 87 20 113/60 (77) 100 11/06/19 23:31 97 11/06/19 22:37 95 25 40 11/06/19 20:00 98.0 101 20 115/56 (75) 100 11/06/19 20:00 Mechanical Ventilator 11/06/19 20:00 40 11/06/19 19:25 93 11/06/19 18:55 94 20 40 11/06/19 16:00 40 11/06/19 16:00 97 11/06/19 16:00 Mechanical Ventilator 11/06/19 16:00 97.7 95 20 104/55 (71) 100 11/06/19 15:14 96 21 40 11/06/19 12:00 93 11/06/19 12:00 97.9 91 20 141/65 (90) 100 11/06/19 12:00 Mechanical Ventilator 11/06/19 12:00 40 11/06/19 10:41 91 22 40 Intake and Output 11/06/19 11/07/19 19:00 07:00 Intake Total 1705 ml 650 ml Output Total 550 ml 1300 ml Balance 1155 ml -650 ml Intake Free Water 150 ml IV Total 1555 ml 650 ml Output Urine Total 550 ml 1300 ml Objective General Appearance: no apparent distress, other - bedridden, vent dependent female Lines, tubes and drains: peripheral HEENT: normocephalic, atraumatic, anicteric, status post trach - Shiley #6, secretions small amount, thin consistency, white color , Vent AC 400-40%-20 PEEP 5 Respiratory/Chest: no respiratory distress, few scattered rhonchi Cardiovascular/Chest: regular rhythm, RUE PICC intact Abdomen: non tender, soft, new G tube Extremities: no edema, other - spastic LE Skin Exam: warm/dry, other - multiple DTI POA ( sacral, ankle foot, elbow) Neurologic: abnormal gait - bedridden, not responsive Musculoskeletal: atrophy - BLE Laboratory Tests 11/07/19 06:10: White Blood Count 31.8*H, Red Blood Count 3.19L, Hemoglobin 8.8L, Hematocrit 29.7L, Mean Corpuscular Volume 93, Mean Corpuscular Hemoglobin 27.6, Mean Corpuscular Hemoglobin Concent 29.6L, Red Cell Distribution Width 17.1H, Platelet Count 42L, Mean Platelet Volume , Neutrophils (%) (Auto) , Lymphocytes (%) (Auto) , Monocytes (%) (Auto) , Eosinophils (%) (Auto) , Basophils (%) (Auto ) , Differential Total Cells Counted 100, Neutrophils % (Manual) 9L, Lymphocytes % (Manual) 17L, Monocytes % (Manual) 6, Eosinophils % (Manual) 1, Basophils % (Manual) 0, Blast Cells % 67*H, Band Neutrophils 0, Platelet Estimate DecreasedL, Platelet Morphology Normal, Polychromasia 1+, Hypochromasia 1+, Anisocytosis 1+, Sodium Level 140, Potassium Level 3.2L, Chloride Level 107, Carbon Dioxide Level 24, Anion Gap 9, Blood Urea Nitrogen 5L , Creatinine 0.7, Estimat Glomerular Filtration Rate > 60, Glucose Level 111H, Calcium Level 7.7L, Magnesium Level [Pending] Current Medications Medications (Trade) Dose Ordered Sig/Inna Route PRN Reason Start Time Stop Time Status Last Admin Dose Admin Acetaminophen (Tylenol) 650 mg Q4H PRN NG fever 100.4, mild pain 11/01/19 23:15 12/01/19 23:14 11/05/19 10:39 Allopurinol (Zyloprim) 100 mg TID GT 11/02/19 09:00 12/02/19 08:59 11/07/19 08:23 Ascorbic Acid (Vitamin C) 500 mg DAILY GT 11/02/19 09:00 12/02/19 08:59 11/07/19 08:23 Carbidopa/Levodopa (Sinemet 25/100) 2 tab QID GT 11/02/19 09:00 12/02/19 08:59 11/07/19 08:28 Chlorhexidine Gluconate (Josefa-Hex 2%) 1 applic DAILY@2000 TOPIC 11/03/19 20:00 02/01/20 19:59 11/06/19 20:32 Daptomycin 500 mg/ Sodium Chloride 50 ml @ 100 mls/hr Q24H IV 11/02/19 16:00 11/09/19 15:59 11/06/19 16:33 Dextrose (Dextrose 50%) 25 ml Q30M PRN IV Hypoglycemia 11/06/19 09:15 02/04/20 09:14 Dextrose (Dextrose 50%) 50 ml Q30M PRN IV Hypoglycemia 11/06/19 09:15 02/04/20 09:14 Dextrose/Sodium Chloride 1,000 ml @ 75 mls/hr [id number] IV 11/03/19 21:00 12/03/19 20:59 11/07/19 05:22 Docusate Sodium (Colace) 100 mg DAILY GT 11/02/19 09:00 12/02/19 08:59 11/07/19 08:23 Donepezil HCl (Aricept) 10 mg QHS GT 11/02/19 21:00 12/02/19 20:59 11/06/19 20:33 Entacapone (Comtan) 400 mg THREE TIMES A DAY ORAL 11/02/19 18:00 12/02/19 17:59 11/07/19 08:26 Insulin Aspart (NovoLOG) Q6HR SUBQ 11/06/19 12:00 02/04/20 11:59 Lansoprazole (Prevacid) 30 mg BID GT 11/02/19 09:00 12/02/19 08:59 11/07/19 08:26 Metoclopramide HCl (Reglan) 5 mg Q6H PRN IVP nausea or vomiting 6/9/20 23:15 12/01/19 23:14 11/02/19 12:51 Metronidazole 100 ml @ 100 mls/hr Q8HR IVPB 11/06/19 14:00 11/13/19 13:59 11/07/19 05:19 Morphine Sulfate (Morphine Sulfate) 2 mg Q3H PRN IVP Moderate Pain (Pain Scale 4-6) 11/02/19 08:36 11/09/19 08:35 Multivitamins (Multivitamins W/ Minerals 15ml Liquid) 15 ml DAILY GT 11/02/19 09:00 12/02/19 08:59 11/07/19 08:23 Ondansetron HCl (Zofran) 4 mg Q4H PRN IVP Nausea & Vomiting 11/01/19 23:15 12/01/19 23:14 Oxycodone HCl (Roxicodone) 10 mg Q4HR GT 11/02/19 09:00 11/09/19 08:59 11/07/19 08:25 Pantoprazole (Protonix) 40 mg DAILY IVP 11/05/19 09:00 12/05/19 08:59 11/07/19 08:26 Polyethylene Glycol (Miralax) 17 gm DAILY PRN GT Constipation 11/02/19 08:30 12/02/19 07:59 Polymyxin B Sulfate 104272 units/Dextrose 550 ml @ 550 mls/hr EVERY 12 HOURS IV 11/05/19 10:00 11/12/19 09:59 11/07/19 08:30 Potassium Chloride 100 ml @ 50 mls/hr ONCE ONCE IVPB 11/07/19 09:30 11/07/19 11:29 11/07/19 09:38 Quetiapine Fumarate (SEROqueL) 50 mg QHS GT 11/02/19 21:00 12/17/19 20:59 11/06/19 20:33 Sennosides (Senokot) 8.6 mg QHS GT 11/02/19 21:00 12/02/19 20:59 11/06/19 20:32 Zinc Oxide (Desitin) 1 applic FOUR TIMES A DAY TOPIC 11/04/19 14:00 12/04/19 13:59 11/07/19 08:27 Assessment/Plan Assessment/Plan ASSESSMENT Chronic respiratory failure ventilator dependent with tracheostomy status Sepsis MRSA bacteremia Probably pneumonia ? 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), s/p 2 u PRBC Pancytopenia Dysphagia, feeding by G-tube Advanced Parkinson's disease Severe protein calorie malnutrition Malfunctioning G tube ( inadvertently was removed) Multiple DTI , POA Ovarian mass consistent with neoplasm Suspected COVID-19 infection Severe protein calorie malnutrition Functional quadriplegia PL[employer] OF [employer] [facility] ventilator support, trach care, pulm toilet baseline ABG stable on current settings, keep as is and optimize as needed CXR 11/06 unchanged, get SCX BCX 10/31 05/28 Staph haemolyticus, likely contaminant BCX 11/01 05/28 MRSA BCX 11/03 NGTD ECHO with pEF 55%, no discrete vegetation seen UCX Klebsiella Carbapenem resistant abx as per ID recs , added Flagyl leuk rising, felt in addition to sepsis also contribution of AML COVID 19 by rapid testing 11/01 NGT, awaiting for the second result Venous Duplex BLE NGT, apply SCD, monitor HH with goal to keep Hgb >7, trend PLT severe pancytopenia likely 2 to AML leukocytosis 2 to sepsis and partially possibly due to malignancy IVF, replace lytes as needed, replace K today and check Mg monitor volumes asp precautions GT was inadvertently removed s/p replacement 11/03 by GI started TF still leaking replacement with GJ tube today maintain strict aspir precautions protein supplement as per RD recs continue SNF meds as per primary supportive care bowel regimen wound care as per surgeon recs overall prognosis poor, given multiple comorbidities, with superimposed AML and ovarian mass, DNR/DNI status case discussed and evaluated by supervising physician Jerrell Wilson MD 11/08/19 1711: Subjective Allergies: Coded Allergies: PENICILLINS (Verified Allergy, Unknown, 11/01/19) VANCOMYCIN (Verified Allergy, Unknown, 11/01/19) Uncoded Allergies: PENICI (Allergy, Unknown, 11/01/19) Assessment/Plan Assessment/Plan Patient seen and examined with DISABILITIES SERVICES OFFICER. Agree with above A&P as it reflects our joint deliberations. Martha Chandler NP Nov 07, 2019 10:04 Jerrell Wilson MD Nov 08, 2019 17:11
[2019-11-07] MEDS ORDERED: Albuterol/Ipratropium 3ml neb HHN PRN (10:15)
--- NOTE | 2019-11-07 11:08 | NUR ---
NURSE NOTES: Paged Dr. Yadav regarding result of blood culture, awaiting for callback. Will continue to follow up.
--- NOTE | 2019-11-07 11:15 | NUR ---
RADIOLOGY DEPT., CHEST X-RAY DONE.-P.DYE
--- NOTE | 2019-11-07 11:38 | NUR ---
NURSE NOTES: Per Dr. Yadav, blood culture x2 today. Order noted, entered, carried out. Will continue to monitor.
--- NOTE | 2019-11-07 11:54 | General Progress Note ---
Assessment/Plan Status: stable, not improved Assessment/Plan: 1. AML. 2. Respiratory failure with vent. 3. Dysphagia with G-tube. 4. Ovarian mass. 5. Advanced Parkinson disease. 6. Anemia requiring blood transfusion in the past. 7. Dementia. 8. Pancytopenia. GT has been changed at the bedside but now leaking again will need GJT placement procedure was canceled today due to elevate dWBC will try again tomorrow fu H&H transfuse prn Subjective ROS Limited/Unobtainable: No Allergies: Coded Allergies: PENICILLINS (Verified Allergy, Unknown, 11/01/19) VANCOMYCIN (Verified Allergy, Unknown, 11/01/19) Uncoded Allergies: PENICI (Allergy, Unknown, 11/01/19) Objective Last 24 Hour Vital Signs Date Time Temp Pulse Resp B/P (MAP) Pulse Ox O2 Delivery O2 Flow Rate FiO2 11/07/19 08:00 95 11/07/19 08:00 40 11/07/19 08:00 Mechanical Ventilator 11/07/19 08:00 98.2 95 20 109/54 (72) 100 11/07/19 07:20 92 23 40 11/07/19 04:00 98.5 90 20 117/68 (84) 100 11/07/19 04:00 40 11/07/19 04:00 Mechanical Ventilator 11/07/19 03:29 100 11/07/19 03:04 100 25 40 11/07/19 00:00 Mechanical Ventilator 11/07/19 00:00 97.6 87 20 113/60 (77) 100 11/06/19 23:31 97 11/06/19 22:37 95 25 40 11/06/19 20:00 98.0 101 20 115/56 (75) 100 11/06/19 20:00 Mechanical Ventilator 11/06/19 20:00 40 11/06/19 19:25 93 11/06/19 18:55 94 20 40 11/06/19 16:00 40 11/06/19 16:00 97 11/06/19 16:00 Mechanical Ventilator 11/06/19 16:00 97.7 95 20 104/55 (71) 100 11/06/19 15:14 96 21 40 11/06/19 12:00 93 11/06/19 12:00 97.9 91 20 141/65 (90) 100 11/06/19 12:00 Mechanical Ventilator 11/06/19 12:00 40 Intake and Output 11/06/19 11/07/19 19:00 07:00 Intake Total 1705 ml 650 ml Output Total 550 ml 1300 ml Balance 1155 ml -650 ml Intake Free Water 150 ml IV Total 1555 ml 650 ml Output Urine Total 550 ml 1300 ml Laboratory Tests 11/07/19 06:10: White Blood Count 31.8*H, Red Blood Count 3.19L, Hemoglobin 8.8L, Hematocrit 29.7L, Mean Corpuscular Volume 93, Mean Corpuscular Hemoglobin 27.6, Mean Corpuscular Hemoglobin Concent 29.6L, Red Cell Distribution Width 17.1H, Platelet Count 42L, Mean Platelet Volume , Neutrophils (%) (Auto) , Lymphocytes (%) (Auto) , Monocytes (%) (Auto) , Eosinophils (%) (Auto) , Basophils (%) (Auto ) , Differential Total Cells Counted 100, Neutrophils % (Manual) 9L, Lymphocytes % (Manual) 17L, Monocytes % (Manual) 6, Eosinophils % (Manual) 1, Basophils % (Manual) 0, Blast Cells % 67*H, Band Neutrophils 0, Platelet Estimate DecreasedL, Platelet Morphology Normal, Polychromasia 1+, Hypochromasia 1+, Anisocytosis 1+, Sodium Level 140, Potassium Level 3.2L, Chloride Level 107, Carbon Dioxide Level 24, Anion Gap 9, Blood Urea Nitrogen 5L , Creatinine 0.7, Estimat Glomerular Filtration Rate > 60, Glucose Level 111H, Calcium Level 7.7L, Magnesium Level 1.8 Height (Feet): 5 Height (Inches): 3.00 Weight (Pounds): 150 General Appearance: no apparent distress Neck: supple Cardiovascular: normal rate Respiratory/Chest: decreased breath sounds Abdomen: normal bowel sounds, non tender, soft Extremities: non-tender Negro Reeves MD Nov 07, 2019 11:53
[2019-11-07 12:00] VITALS: BP 99/54
--- NOTE | 2019-11-07 13:27 | Surgery Progress Note ---
Surgery Progress Note Subjective Additional Comments labs noted AML flare no n/v/f/c comfortable appearing on support Objective Last 24 Hour Vital Signs Date Time Temp Pulse Resp B/P (MAP) Pulse Ox O2 Delivery O2 Flow Rate FiO2 11/07/19 12:00 40 11/07/19 12:00 95 11/07/19 12:00 98.2 95 22 99/54 (69) 100 11/07/19 12:00 Mechanical Ventilator 11/07/19 08:00 95 11/07/19 08:00 40 11/07/19 08:00 Mechanical Ventilator 11/07/19 08:00 98.2 95 20 109/54 (72) 100 11/07/19 07:20 92 23 40 11/07/19 04:00 98.5 90 20 117/68 (84) 100 11/07/19 04:00 40 11/07/19 04:00 Mechanical Ventilator 11/07/19 03:29 100 11/07/19 03:04 100 25 40 11/07/19 00:00 Mechanical Ventilator 11/07/19 00:00 97.6 87 20 113/60 (77) 100 11/06/19 23:31 97 11/06/19 22:37 95 25 40 11/06/19 20:00 98.0 101 20 115/56 (75) 100 11/06/19 20:00 Mechanical Ventilator 11/06/19 20:00 40 11/06/19 19:25 93 11/06/19 18:55 94 20 40 11/06/19 16:00 40 11/06/19 16:00 97 11/06/19 16:00 Mechanical Ventilator 11/06/19 16:00 97.7 95 20 104/55 (71) 100 11/06/19 15:14 96 21 40 I&O Intake and Output 11/06/19 11/07/19 19:00 07:00 Intake Total 1705 ml 725 ml Output Total 550 ml 1300 ml Balance 1155 ml -575 ml Intake Free Water 150 ml IV Total 1555 ml 725 ml Output Urine Total 550 ml 1300 ml Dressing: saturated Wound: clean Cardiovascular: RSR Respiratory: clear, decreased breath sounds Abdomen: soft, non-tender, present bowel sounds Extremities: no cyanosis, other Laboratory Tests Test 11/07/19 06:10 White Blood Count 31.8 K/UL (4.8-10.8) *H Red Blood Count 3.19 M/UL (4.20-5.40) L Hemoglobin 8.8 G/DL (12.0-16.0) L Hematocrit 29.7 % (37.0-47.0) L Mean Corpuscular Volume 93 FL (80-99) Mean Corpuscular Hemoglobin 27.6 PG (27.0-31.0) Mean Corpuscular Hemoglobin Concent 29.6 G/DL (32.0-36.0) L Red Cell Distribution Width 17.1 % (11.6-14.8) H Platelet Count 42 K/UL (150-450) L Mean Platelet Volume FL (6.5-10.1) Neutrophils (%) (Auto) % (45.0-75.0) Lymphocytes (%) (Auto) % (20.0-45.0) Monocytes (%) (Auto) % (1.0-10.0) Eosinophils (%) (Auto) % (0.0-3.0) Basophils (%) (Auto) % (0.0-2.0) Differential Total Cells Counted 100 Neutrophils % (Manual) 9 % (45-75) L Lymphocytes % (Manual) 17 % (20-45) L Monocytes % (Manual) 6 % (1-10) Eosinophils % (Manual) 1 % (0-3) Basophils % (Manual) 0 % (0-2) Blast Cells % 67 % (0-0) *H Band Neutrophils 0 % (0-8) Platelet Estimate Decreased L Platelet Morphology Normal Polychromasia 1+ Hypochromasia 1+ Anisocytosis 1+ Sodium Level 140 MMOL/L (136-145) Potassium Level 3.2 MMOL/L (3.5-5.1) L Chloride Level 107 MMOL/L (98-107) Carbon Dioxide Level 24 MMOL/L (21-32) Anion Gap 9 mmol/L (5-15) Blood Urea Nitrogen 5 mg/dL (7-18) L Creatinine 0.7 MG/DL (0.55-1.30) Estimat Glomerular Filtration Rate > 60 mL/min (>60) Glucose Level 111 MG/DL (74-106) H Calcium Level 7.7 MG/DL (8.5-10.1) L Magnesium Level 1.8 MG/DL (1.8-2.4) Plan Problems: (1) Decubitus skin ulcer Assessment & Plan: Pt presented on admission with multiple Pressure Injuries, and contractures. Large Soft Mass noted to lateral R chest ,just inferior to Breast.Soft mass that uis violaceous and denuded. Unstageable Pressure injury R thoracic. Wound presents as partially opened DTPI( L)6cm x (W)8.5cm. 95% Soft eschar flap,5% dee. Marginal erythema along borders In addition scattered linear and purple area periwound. Full thickness stage 4 Sacral Pressure Injury(L)9.3cm x (W)8.7cm. Base of wound is 95% necrotic,but bone is palpable.Mild odor noted. No exudate noted. Non-blanching erythema periwound. Unstageable Pressure Injury R trochanter(L)3.5cm x (W)4.2cm. Base of wound is 90 % soft eschar, 10% pink epithelial. Edges adherent to base of wound .No erythema induration or fluctuance periwound. Unstageable Pressure injury R Ischium(L)3.5cm x (W)2.5cm. Dry eschar at base of wound, edges are adherent with surrounding pink epithelial. No erythema or induration periwound. DTPI L trochanter(L)4cm x (W)1cm. Stable dry eschar L Hallux(L)1.6cm x (W)2cm.NO erythema fluctuance or induration periwound. L 1st metatarsal TMA noted. Stable dry eschar distal/lateral L foot (L)1.5cm x (W)3cm. No erythema, induration or fluctuance periwound. DTPI noted to plantar L foot.(L)0.9cm x (W)0.9cm. Base of wound is fluctuant, purple with maroon borders. Unstageable Pressure injury L lateral Malleolus. Stable dry eschar noted.No erythema or induration periwound. L heel is boggy with non-blanching erythema. Unstageable Pressure injury R Hallux and plantar aspect(L)3.5cm x (W)3.4cm. Soft eschar at base of wound with marginal erythema along borders. R heel is boggy with Non-Blanching erythema. Unstageable Presure injury distal/Lateral R foot . Stable dry eschar noted . No erythema of fluctuance periwound. Tx.Plan: Cleanse Sacral Wound with Saline. Loosely pack with Therahoney impregnated Kerlix.Applpy Moisture Barrier Paste periwound. Cover with Optifoam drsg. Change Daily and prn. Cleanse Soft Mass R chest with Saline. Cover with Optifoam drsg. Change Daily and prn. Cleanse wounds R trochanter, R Ischium with Saline. Apply Moisture Barrier Paste.Cover with Optifoam drsg. Change every 3 days and prn. Apply Moisture Barrier to L trochanter. Cvoer with Optifoam drsg. Change every 3 days and prn. Apply Betadine to wounds R and L foot. Cover each wound with Optifoam drsg. Changee very 3 days and prn. Apply Cavilon Skin Barrier to both heels. Cover each heel with Optifoam drsg. Change every 7 days and prn. APM/ANA Mattress overlay. turn q2h nutritional optimization (2) Malnutrition Assessment & Plan: DAILY ESTIMATED NEEDS: Needs based on Critical care, wounds, 64kg 22-28 kcals/kg 9407-1192 total kcals 1.25-2 g protein/kg 80-128 g total protein 25-30 mL/kg 0252-2031 total fluid mLs NUTRITION DIAGNOSIS: Swallowing difficulty r/t respiratory status as evidenced by pt is trach and peg dep. 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 - Start @25ml/hr for 6 hrs, advance as tolerated 10ml/hr q4-6 hrs to goal - Flush per - WYATT over 30 degrees ADDITIONAL RECOMMENDATIONS: 1) Per SNF: 65 inches (5'5"); 141 lbs (64.1kg) 2) TF recs as above 3) F/up w/ WC eval -> add MEIR BID via GT (3) Anemia Assessment & Plan: transfused trend labs no active bleeding stool study GI eval (4) UTI (urinary tract infection) (5) Tracheostomy dependence Assessment & Plan: Findings: The left hemidiaphragm is elevated. Atelectatic changes are present in the left lung base. There is minimal right basilar atelectasis. No definite infiltrates. There is a tracheostomy. Impression: Elevated left hemidiaphragm with considerable left basilar atelectasis. Less extensive right basilar atelectasis. Inspiration is suboptimal. Interim development of opacity of the left mid and lower lung. The left hemidiaphragm is obscured. Right lung is probably clear , although there is crowding of bronchovascular lung volumes. Tracheostomy remains. Impression: Since 11/01/2019, interim development of left mid and lower lung infiltrates versus edema and possibly pleural fluid Juan Houser Nov 07, 2019 13:27
--- NOTE | 2019-11-07 15:30 | NUR ---
NURSE NOTES: Paged Dr. Yadav regarding blood culture result as gram variable rods, awaiting for callback. Will continue to follow up.
[2019-11-07] MEDS: DAPTOmycin 500 MG in NS 50 ML IV SCH (15:40)
[2019-11-07 16:00] VITALS: BP 109/56
--- NOTE | 2019-11-07 16:42 | NUR ---
CASE MANAGEMENT: REVIEW SI: ANEMIA . UTI . TRACHEOSTOMY DEPENDENCE T 98.2 HR 95 RR 20 BP 99/54 SAT 100% MECH VENT FIO2 40 WBC 31.8 H/H 8.8/29.7 K 3.2 IS: DAPTOMYCIN IV Q24HR D5 NS IVF @ 75ML/HR POLYMYXIN B SULFATE IV Q12HR PROTONIX IV QD FLAGYL IV Q8HR G-J TUBE PLACEMENT PENDING STEP DOWN UNIT STATUS DCP: PATIENT IS FROM [facility]
[2019-11-07] MEDS ORDERED: NS 275ml ONE (17:38)
[2019-11-07] MEDS ORDERED: D5NS 1000ml IV ONE (17:38)
[2019-11-07] MEDS ORDERED: Tubing IV Secondary IV ONE (17:38)
--- NOTE | 2019-11-07 18:01 | NUR ---
NURSE NOTES: Per Dr. Yadav, no new order received at this time, MD made aware GJT placement postponed due to elevated WBC. Per MD elevated WBC is expected but positive blood culture not safe for procedure.
--- NOTE | 2019-11-07 18:59 | Internal Med Progress Note ---
Subjective Date of Service: Nov 07, 2019 Physician Name Fredrick Prince Attending Physician Fredrick Prince MD Current Medications Medications (Trade) Dose Ordered Sig/Inna Route PRN Reason Start Time Stop Time Status Last Admin Dose Admin Acetaminophen (Tylenol) 650 mg Q4H PRN NG fever 100.4, mild pain 11/01/19 23:15 12/01/19 23:14 11/05/19 10:39 Albuterol/ Ipratropium (Albuterol/ Ipratropium) 3 ml Q4H PRN HHN sob 11/07/19 10:15 11/12/19 10:14 Allopurinol (Zyloprim) 100 mg TID GT 11/02/19 09:00 12/02/19 08:59 11/07/19 17:51 Ascorbic Acid (Vitamin C) 500 mg DAILY GT 11/02/19 09:00 12/02/19 08:59 11/07/19 08:23 Carbidopa/Levodopa (Sinemet 25/100) 2 tab QID GT 11/02/19 09:00 12/02/19 08:59 11/07/19 17:50 Chlorhexidine Gluconate (Jsoefa-Hex 2%) 1 applic DAILY@2000 TOPIC 11/03/19 20:00 02/01/20 19:59 11/06/19 20:32 Daptomycin 500 mg/ Sodium Chloride 50 ml @ 100 mls/hr Q24H IV 11/02/19 16:00 11/09/19 15:59 11/07/19 15:40 Dextrose (Dextrose 50%) 25 ml Q30M PRN IV Hypoglycemia 11/06/19 09:15 02/04/20 09:14 Dextrose (Dextrose 50%) 50 ml Q30M PRN IV Hypoglycemia 11/06/19 09:15 02/04/20 09:14 Dextrose/Sodium Chloride 1,000 ml @ 75 mls/hr [id number] IV 11/03/19 21:00 12/03/19 20:59 11/07/19 18:17 Docusate Sodium (Colace) 100 mg DAILY GT 11/02/19 09:00 12/02/19 08:59 11/07/19 08:23 Donepezil HCl (Aricept) 10 mg QHS GT 11/02/19 21:00 12/02/19 20:59 11/06/19 20:33 Entacapone (Comtan) 400 mg THREE TIMES A DAY ORAL 11/02/19 18:00 12/02/19 17:59 11/07/19 17:50 Insulin Aspart (NovoLOG) Q6HR SUBQ 11/06/19 12:00 02/04/20 11:59 Lansoprazole (Prevacid) 30 mg BID GT 11/02/19 09:00 12/02/19 08:59 11/07/19 17:50 Metoclopramide HCl (Reglan) 5 mg Q6H PRN IVP nausea or vomiting 11/01/19 23:15 12/01/19 23:14 11/02/19 12:51 Metronidazole 100 ml @ 100 mls/hr Q8HR IVPB 11/06/19 14:00 11/13/19 13:59 11/07/19 14:52 Morphine Sulfate (Morphine Sulfate) 2 mg Q3H PRN IVP Moderate Pain (Pain Scale 4-6) 11/02/19 08:36 11/09/19 08:35 11/07/19 14:53 Multivitamins (Multivitamins W/ Minerals 15ml Liquid) 15 ml DAILY GT 11/02/19 09:00 12/02/19 08:59 11/07/19 08:23 Ondansetron HCl (Zofran) 4 mg Q4H PRN IVP Nausea & Vomiting 11/01/19 23:15 12/01/19 23:14 Oxycodone HCl (Roxicodone) 10 mg Q4HR GT 11/02/19 09:00 11/09/19 08:59 11/07/19 17:51 Pantoprazole (Protonix) 40 mg DAILY IVP 11/05/19 09:00 12/05/19 08:59 11/07/19 08:26 Polyethylene Glycol (Miralax) 17 gm DAILY PRN GT Constipation 11/02/19 08:30 12/02/19 07:59 Polymyxin B Sulfate 235341 units/Dextrose 550 ml @ 550 mls/hr EVERY 12 HOURS IV 11/05/19 10:00 11/12/19 09:59 11/07/19 08:30 Quetiapine Fumarate (SEROqueL) 50 mg QHS GT 11/02/19 21:00 12/17/19 20:59 11/06/19 20:33 Sennosides (Senokot) 8.6 mg QHS GT 11/02/19 21:00 12/02/19 20:59 11/06/19 20:32 Zinc Oxide (Desitin) 1 applic FOUR TIMES A DAY TOPIC 11/04/19 14:00 12/04/19 13:59 11/07/19 17:52 Allergies: Coded Allergies: PENICILLINS (Verified Allergy, Unknown, 11/01/19) VANCOMYCIN (Verified Allergy, Unknown, 11/01/19) Uncoded Allergies: PENICI (Allergy, Unknown, 11/01/19) ROS Limited/Unobtainable: Yes Subjective non verbal, chronic trach wbc trending down plan for EGD Objective Last Vital Signs Date Time Temp Pulse Resp B/P (MAP) Pulse Ox O2 Delivery O2 Flow Rate FiO2 11/07/19 16:00 99.5 101 22 109/56 (73) 100 11/07/19 16:00 Mechanical Ventilator 11/07/19 16:00 40 General Appearance: no apparent distress EENT: other Neck: stiff neck - trach to ventilator Cardiovascular: normal rate, regular rhythm Respiratory/Chest: rhonchi - left Abdomen: normal bowel sounds, non tender, soft Neurologic: aphasia, other - obtunded Skin: warm/dry Laboratory Tests Test 11/07/19 06:10 White Blood Count 31.8 K/UL (4.8-10.8) *H Red Blood Count 3.19 M/UL (4.20-5.40) L Hemoglobin 8.8 G/DL (12.0-16.0) L Hematocrit 29.7 % (37.0-47.0) L Mean Corpuscular Volume 93 FL (80-99) Mean Corpuscular Hemoglobin 27.6 PG (27.0-31.0) Mean Corpuscular Hemoglobin Concent 29.6 G/DL (32.0-36.0) L Red Cell Distribution Width 17.1 % (11.6-14.8) H Platelet Count 42 K/UL (150-450) L Mean Platelet Volume FL (6.5-10.1) Neutrophils (%) (Auto) % (45.0-75.0) Lymphocytes (%) (Auto) % (20.0-45.0) Monocytes (%) (Auto) % (1.0-10.0) Eosinophils (%) (Auto) % (0.0-3.0) Basophils (%) (Auto) % (0.0-2.0) Differential Total Cells Counted 100 Neutrophils % (Manual) 9 % (45-75) L Lymphocytes % (Manual) 17 % (20-45) L Monocytes % (Manual) 6 % (1-10) Eosinophils % (Manual) 1 % (0-3) Basophils % (Manual) 0 % (0-2) Blast Cells % 67 % (0-0) *H Band Neutrophils 0 % (0-8) Platelet Estimate Decreased L Platelet Morphology Normal Polychromasia 1+ Hypochromasia 1+ Anisocytosis 1+ Sodium Level 140 MMOL/L (136-145) Potassium Level 3.2 MMOL/L (3.5-5.1) L Chloride Level 107 MMOL/L (98-107) Carbon Dioxide Level 24 MMOL/L (21-32) Anion Gap 9 mmol/L (5-15) Blood Urea Nitrogen 5 mg/dL (7-18) L Creatinine 0.7 MG/DL (0.55-1.30) Estimat Glomerular Filtration Rate > 60 mL/min (>60) Glucose Level 111 MG/DL (74-106) H Calcium Level 7.7 MG/DL (8.5-10.1) L Magnesium Level 1.8 MG/DL (1.8-2.4) Microbiology Date/Time Source Procedure Growth Status 11/06/19 05:15 Blood Blood Culture - Preliminary Resulted 11/06/19 05:00 Blood Blood Culture - Preliminary Resulted Intake and Output 11/06/19 11/07/19 19:00 07:00 Intake Total 1705 ml 725 ml Output Total 550 ml 1300 ml Balance 1155 ml -575 ml Intake Free Water 150 ml IV Total 1555 ml 725 ml Output Urine Total 550 ml 1300 ml Objective wbc rised 38k peg leaking Assessment/Plan Status: stable, unchanged Assessment/Plan Impression: 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 MRSA bacteremia leukocytosis klebsiella UTI ovarian mass c/w neoplasm chronic resp failure s trach on ventilator advanced parkinson's diease dementia pancytopenia severe protein calorie malnutrition press sore unstageable, 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 Fredrick Prince MD Nov 07, 2019 18:59
--- NOTE | 2019-11-07 19:05 | NUR ---
HAND-OFF: Report given to SUYAPA Randhawa. Pt remains stable.
--- NOTE | 2019-11-07 19:09 | NUR ---
NURSE NOTES: Dr. Prince paged to clarity the orders of KCL IV 30 mEq x1 today. The doctor called back and ordered to administer extra 30mEq of KCL on the top of IV KCL 20mEq this morning. Order read back and carried out. Endorse to SUYAPA Randhaaw
--- NOTE | 2019-11-07 19:15 | NUR ---
Received report Hosea Graham RN. patient is resting w/no sob or distress noted. Trach to vent with setting as ordered and saturating 100%. GT tube feeding on hold except meds. Bailey draining well by gravity of hazy lana urine. Skin issue noted w/dressing dry, clean and intact. MATEO PICC in place with drsg dry and intact and running D5NS @75mL/hr. SR on nanny babysitter. DNR/DNI. Bed in lowest position and in lock position. Side rail up X2 Bed alarm engaged. Will continue POC.
[2019-11-07 20:00] VITALS: BP 112/63
[2019-11-07] MEDS: Dyna-Hex 2% Top Sol 2oz TOPIC SCH (21:29)
[2019-11-07] MEDS: Sennosides 8.6mg tab GT SCH (21:32)
[2019-11-07] MEDS: Donepezil 10mg tab GT SCH (21:35)
--- NOTE | 2019-11-07 21:59 | Infectious Diseases Prog Note ---
Assessment/Plan Assessment/Plan ASSESSMENT AND PLAN: 1. mrsa bacteremia (signals analyst likely contaminant), gram neg bacteremia, klebsiella uti (cre), sepsis, AML, + blasts, fevers, leukocytosis, pna, sacral wound infection - daptomycin, polymyxin, flagyl - check surveillance blood cultures, echo, labs, sc, chest x-ray - wound management per surgery - communicated with Dr. Suresh gifford/u on ID gram neg blood cultures 2. Trach, vent respiratory failure. 3. Dysphagia, G-tube. 4. Anemia. 5. Thrombocytopenia. 6. Leukocytosis. 7. Malnutrition. 8. Ovarian mass with neoplasm. 9. Parkinson's. 10. Dementia. 11. Skin care per Surgery and protocol. 12. Allergies to penicillin, vancomycin. 13. Social history is negative. 14. Family history is noncontributory. 15. MAR was noted. 16. Case was discussed with RN. 17. Continue treatment per primary consultants. 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 Subjective Constitutional: Reports: fever, fatigue, other - trach and vent HEENT: Reports: congestion Respiratory: Reports: shortness of breath Cardiovascular: Reports: other - no pressors Genitourinary: Reports: other - + dong Neurologic: Reports: weakness Psychiatric: Reports: other - NA Skin: Denies: rash Hematologic: Denies: bleeding Musculoskeletal: Reports: other - NA Allergies: Coded Allergies: PENICILLINS (Verified Allergy, Unknown, 11/01/19) VANCOMYCIN (Verified Allergy, Unknown, 11/01/19) Uncoded Allergies: PENICI (Allergy, Unknown, 11/01/19) Objective Vital Signs Last 24 Hour Vital Signs Date Time Temp Pulse Resp B/P (MAP) Pulse Ox O2 Delivery O2 Flow Rate FiO2 11/07/19 20:00 40 11/07/19 20:00 Mechanical Ventilator 11/07/19 20:00 101 11/07/19 20:00 99.1 105 20 112/63 (79) 100 11/07/19 19:51 106 0 40 11/07/19 16:00 99.5 101 22 109/56 (73) 100 11/07/19 16:00 Mechanical Ventilator 11/07/19 16:00 99 11/07/19 16:00 40 11/07/19 15:01 104 22 40 11/07/19 12:00 40 11/07/19 12:00 95 11/07/19 12:00 98.2 95 22 99/54 (69) 100 11/07/19 12:00 Mechanical Ventilator 11/07/19 11:23 95 21 40 11/07/19 08:00 95 11/07/19 08:00 40 11/07/19 08:00 Mechanical Ventilator 11/07/19 08:00 98.2 95 20 109/54 (72) 100 11/07/19 07:20 92 23 40 11/07/19 04:00 98.5 90 20 117/68 (84) 100 11/07/19 04:00 40 11/07/19 04:00 Mechanical Ventilator 11/07/19 03:29 100 11/07/19 03:04 100 25 40 11/07/19 00:00 Mechanical Ventilator 11/07/19 00:00 97.6 87 20 113/60 (77) 100 11/06/19 23:31 97 11/06/19 22:37 95 25 40 Height (Feet): 5 Height (Inches): 3.00 Weight (Pounds): 150 General Appearance: no acute distress, other - + trach and vent, opens eyes HEENT: normocephalic, atraumatic, anicteric, no JVD, status post trach Respiratory/Chest: crackles/rales, rhonchi - bilaterally Cardiovascular: normal rate, regular rhythm, no gallop/murmur, no JVD Abdomen: normal bowel sounds, soft, non tender, no organomegaly, non distended Genitourinary: other - + dong - urine slt cloudy Extremities: no cyanosis Skin: no rash Neurologic/Psychiatric: editor trade journal II-XII grossly normal, alert, motor weakness Lymphatic: no neck adenopathy Musculoskeletal: no effusion Objective Chest x-ray - 11/05/19 - IMPRESSION: 1. Interval placement of right PICC line tip to the mid SVC. 2. Hypoventilatory lungs. Bibasilar atelectasis/consolidations, similar to prior study. 3. Probable bilateral pleural effusions. Chest x-ray - 11/07/19- Procedure: XRAY Chest 1v Procedure: XRAY Chest 1v Reason for study: Shortness of breath. Comparison films: 11/05/2019. FINDINGS: Tracheostomy and right PICC line remain in place. There is limited inspiration with bibasilar densities unchanged. Cardiac and mediastinal silhouette are within normal limits. No large effusion seen The bony thorax appear unremarkable. IMPRESSION: NO SIGNIFICANT CHANGE COMPARED TO PREVIOUS EXAM. Microbiology Date/Time Source Procedure Growth Status 11/06/19 05:15 Blood Blood Culture - Preliminary Resulted 11/02/19 22:00 Nasopharynx Coronavirus COVID-19 PCR ([facility]) - Final Complete 11/01/19 11:45 Urine,Clean Catch Urine Culture - Final K.pneumoniae Carbapenem Resist Complete 11/01/19 16:30 Rectum VRE Culture - Final Enterococcus Faecalis - Vre Complete Microbiology Date/Time Source Procedure Growth Status 11/06/19 05:15 Blood Blood Culture - Preliminary Resulted 11/06/19 05:00 Blood Blood Culture - Preliminary Resulted Laboratory Tests Test 11/07/19 06:10 White Blood Count 31.8 K/UL (4.8-10.8) *H Red Blood Count 3.19 M/UL (4.20-5.40) L Hemoglobin 8.8 G/DL (12.0-16.0) L Hematocrit 29.7 % (37.0-47.0) L Mean Corpuscular Volume 93 FL (80-99) Mean Corpuscular Hemoglobin 27.6 PG (27.0-31.0) Mean Corpuscular Hemoglobin Concent 29.6 G/DL (32.0-36.0) L Red Cell Distribution Width 17.1 % (11.6-14.8) H Platelet Count 42 K/UL (150-450) L Mean Platelet Volume FL (6.5-10.1) Neutrophils (%) (Auto) % (45.0-75.0) Lymphocytes (%) (Auto) % (20.0-45.0) Monocytes (%) (Auto) % (1.0-10.0) Eosinophils (%) (Auto) % (0.0-3.0) Basophils (%) (Auto) % (0.0-2.0) Differential Total Cells Counted 100 Neutrophils % (Manual) 9 % (45-75) L Lymphocytes % (Manual) 17 % (20-45) L Monocytes % (Manual) 6 % (1-10) Eosinophils % (Manual) 1 % (0-3) Basophils % (Manual) 0 % (0-2) Blast Cells % 67 % (0-0) *H Band Neutrophils 0 % (0-8) Platelet Estimate Decreased L Platelet Morphology Normal Polychromasia 1+ Hypochromasia 1+ Anisocytosis 1+ Sodium Level 140 MMOL/L (136-145) Potassium Level 3.2 MMOL/L (3.5-5.1) L Chloride Level 107 MMOL/L (98-107) Carbon Dioxide Level 24 MMOL/L (21-32) Anion Gap 9 mmol/L (5-15) Blood Urea Nitrogen 5 mg/dL (7-18) L Creatinine 0.7 MG/DL (0.55-1.30) Estimat Glomerular Filtration Rate > 60 mL/min (>60) Glucose Level 111 MG/DL (74-106) H Calcium Level 7.7 MG/DL (8.5-10.1) L Magnesium Level 1.8 MG/DL (1.8-2.4) Current Medications Medications (Trade) Dose Ordered Sig/Inna Route PRN Reason Start Time Stop Time Status Last Admin Dose Admin Acetaminophen (Tylenol) 650 mg Q4H PRN NG fever 100.4, mild pain 11/01/19 23:15 12/01/19 23:14 11/05/19 10:39 Albuterol/ Ipratropium (Albuterol/ Ipratropium) 3 ml Q4H PRN HHN sob 11/07/19 10:15 11/12/19 10:14 Allopurinol (Zyloprim) 100 mg TID GT 11/02/19 09:00 12/02/19 08:59 11/07/19 17:51 Ascorbic Acid (Vitamin C) 500 mg DAILY GT 11/02/19 09:00 12/02/19 08:59 11/07/19 08:23 Carbidopa/Levodopa (Sinemet 25/100) 2 tab QID GT 11/02/19 09:00 12/02/19 08:59 11/07/19 21:33 Chlorhexidine Gluconate (Josefa-Hex 2%) 1 applic DAILY@2000 TOPIC 11/03/19 20:00 02/01/20 19:59 11/07/19 21:29 Daptomycin 500 mg/ Sodium Chloride 50 ml @ 100 mls/hr Q24H IV 11/02/19 16:00 11/09/19 15:59 11/07/19 15:40 Dextrose (Dextrose 50%) 25 ml Q30M PRN IV Hypoglycemia 11/06/19 09:15 02/04/20 09:14 Dextrose (Dextrose 50%) 50 ml Q30M PRN IV Hypoglycemia 11/06/19 09:15 02/04/20 09:14 Dextrose/Sodium Chloride 1,000 ml @ 75 mls/hr [id number] IV 11/03/19 21:00 12/03/19 20:59 11/07/19 18:17 Docusate Sodium (Colace) 100 mg DAILY GT 11/02/19 09:00 12/02/19 08:59 11/07/19 08:23 Donepezil HCl (Aricept) 10 mg QHS GT 11/02/19 21:00 12/02/19 20:59 11/07/19 21:35 Entacapone (Comtan) 400 mg THREE TIMES A DAY ORAL 11/02/19 18:00 12/02/19 17:59 11/07/19 17:50 Insulin Aspart (NovoLOG) Q6HR SUBQ 11/06/19 12:00 02/04/20 11:59 Lansoprazole (Prevacid) 30 mg BID GT 11/02/19 09:00 12/02/19 08:59 11/07/19 17:50 Metoclopramide HCl (Reglan) 5 mg Q6H PRN IVP nausea or vomiting 11/01/19 23:15 12/01/19 23:14 11/02/19 12:51 Metronidazole 100 ml @ 100 mls/hr Q8HR IVPB 11/06/19 14:00 11/13/19 13:59 11/07/19 14:52 Morphine Sulfate (Morphine Sulfate) 2 mg Q3H PRN IVP Moderate Pain (Pain Scale 4-6) 11/02/19 08:36 11/09/19 08:35 11/07/19 14:53 Multivitamins (Multivitamins W/ Minerals 15ml Liquid) 15 ml DAILY GT 11/02/19 09:00 12/02/19 08:59 11/07/19 08:23 Ondansetron HCl (Zofran) 4 mg Q4H PRN IVP Nausea & Vomiting 11/01/19 23:15 12/01/19 23:14 Oxycodone HCl (Roxicodone) 10 mg Q4HR GT 11/02/19 09:00 11/09/19 08:59 11/07/19 21:34 Pantoprazole (Protonix) 40 mg DAILY IVP 11/05/19 09:00 12/05/19 08:59 11/07/19 08:26 Polyethylene Glycol (Miralax) 17 gm DAILY PRN GT Constipation 11/02/19 08:30 12/02/19 07:59 Polymyxin B Sulfate [id number] units/Dextrose 550 ml @ 550 mls/hr EVERY 12 HOURS IV 11/05/19 10:00 11/12/19 09:59 11/07/19 21:29 Potassium Chloride 100 ml @ 100 mls/hr Q1HR IVPB 11/07/19 19:00 11/07/19 21:59 11/07/19 21:36 Quetiapine Fumarate (SEROqueL) 50 mg QHS GT 11/02/19 21:00 12/17/19 20:59 11/07/19 21:36 Sennosides (Senokot) 8.6 mg QHS GT 11/02/19 21:00 12/02/19 20:59 11/07/19 21:32 Zinc Oxide (Desitin) 1 applic FOUR TIMES A DAY TOPIC 11/04/19 14:00 12/04/19 13:59 11/07/19 21:39 González Yadav MD Nov 07, 2019 21:59
[2019-11-08] VITALS: BP 112/63
--- NOTE | 2019-11-08 | NUR ---
NURSE NOTES: Patient resting. Respirations even and unlabored. No sob or distress noted. VSS. SR on desk monitor. Will continue POC.
[2019-11-08] MEDS: oxyCODONE 5mg IR tab GT SCH ×6 (01:00→21:00)
[2019-11-08 04:00] VITALS: BP 97/48
[2019-11-08] MEDS: NovoLOG Insulin Flexpen SUBQ SCH ×4 (05:13→17:25)
[2019-11-08 06:10] LABS: HEMATOCRIT 28.1 % (37.0-47.0); HEMOGLOBIN 8.3 G/DL (12.0-16.0); MEAN CORPUSCULAR VOLUME 93 FL (80-99); PLATELET COUNT 29 K/UL (150-450); RED BLOOD COUNT 3.02 M/UL (4.20-5.40); RED CELL DISTRIBUTION WIDTH 16.7 % (11.6-14.8)
[2019-11-08 06:12] LABS: ALANINE AMINOTRANSFERASE < 6 U/L (12-78); ALBUMIN 1.7 G/DL (3.4-5.0); ALBUMIN/GLOBULIN RATIO 0.5 (1.0-2.7); ALKALINE PHOSPHATASE 47 U/L (46-116); ANION GAP 9 mmol/L (5-15); ASPARTATE AMINO TRANSFERASE 15 U/L (15-37); BILIRUBIN,TOTAL 0.4 MG/DL (0.2-1.0); BLOOD UREA NITROGEN 3 mg/dL (7-18); CALCIUM 7.7 MG/DL (8.5-10.1); CARBON DIOXIDE 22 MMOL/L (21-32); CHLORIDE 109 MMOL/L (98-107); CREATININE 0.7 MG/DL (0.55-1.30); POTASSIUM 3.5 MMOL/L (3.5-5.1); SODIUM 140 MMOL/L (136-145)
[2019-11-08 06:15] LABS: CREATINE KINASE 24 U/L (26-308)
[2019-11-08 06:17] LABS: WHITE BLOOD COUNT 34.6 K/UL (4.8-10.8)
--- NOTE | 2019-11-08 07:30 | NUR ---
NURSE NOTES: Received report from SRIKANTH Johnson. Pt in bed awake and responsive to tactile stimuli, non-verbal. No c/o pain noted. IV site in right upper arm PICC 2 lumens, patent able to flush both lumens well. Noted moderate amount of dark red colored drainage from G-tube opening site. Bed in lowest position and locked. Trach shiley 6, intact and patent and connected to vent AC 20, TV 400V 40% fi o2 and peep of 5. call light within easy reach. Bed in lowest position and locked. Side railsx3 up for safety. F/C intact and patent. Will continue to plan of care.
[2019-11-08 07:45] VITALS: BP 101/55
--- NOTE | 2019-11-08 08:13 | NUR ---
RD ASSESSMENT & RECOMMENDATIONS SEE CARE ACTIVITY FOR COMPLETE ASSESSMENT DAILY ESTIMATED NEEDS: Needs based on Critical care, wounds, 64kg 22-28 kcals/kg 5290-9829 total kcals 1.25-2 g protein/kg 80-128 g total protein 25-30 mL/kg 6360-1766 total fluid mLs NUTRITION DIAGNOSIS: Swallowing difficulty r/t respiratory status as evidenced by pt is trach and peg dep. CURRENT TF:NPO ENTERAL NUTRITION RECOMMENDATIONS: VITAL AF 1.2 @ 55ml/hr x24 hrs to provide 1320ml, 1584 kcal, 99g pro, 1071ml free H2O - Post PEJ placement, initiate Vital AF 1.2 @ 25ml/hr x 6hrs, advance 10ml q 4-6 hrs as tolerated to goal. - Flush per - HOB over 30 degrees ADDITIONAL RECOMMENDATIONS: 1) Per SNF: 65 inches (5'5"); 141 lbs (64.1kg) 2) Wound care: add MEIR BID via GT w/ TF order 3) Monitor lytes, replete as needed .
[2019-11-08] MEDS: D5NS 1,000 ML IV SCH ×2 (08:15→20:25)
[2019-11-08] MEDS: Pantoprazole Inj IVP SCH (08:41)
[2019-11-08] MEDS: Docusate 100mg/10ml Liq GT SCH (08:41)
[2019-11-08] MEDS: Levodopa/Carbidopa 25/100 tab GT SCH ×4 (08:42→21:00)
[2019-11-08] MEDS: Allopurinol 100mg Tab GT SCH ×3 (08:42→17:18)
[2019-11-08] MEDS: Multivitamins W/Minerals 15 ML UDC GT SCH (08:42)
[2019-11-08] MEDS: Entacapone 200mg tab ORAL SCH ×3 (08:42→17:18)
[2019-11-08] MEDS: Ascorbic Acid 500mg tab GT SCH (08:42)
[2019-11-08] MEDS: Desitin Rash Paste TOPIC SCH ×4 (08:43→20:25)
[2019-11-08] MEDS: Polymyxin B Sulfate 500,000 UNITS in D5W 500ml 550 ML IV SCH ×2 (08:43→20:25)
--- NOTE | 2019-11-08 10:46 | Pulmonology Progress Note ---
Martha Chandler SCREENER AND BLENDER OPERATOR 11/08/19 1046: Subjective ROS Limited/Unobtainable: Yes Constitutional: Reports: fever, fatigue, other Psychiatric: Reports: other Skin: Denies: rash Musculoskeletal: Reports: other Allergies: Coded Allergies: PENICILLINS (Verified Allergy, Unknown, 11/01/19) VANCOMYCIN (Verified Allergy, Unknown, 11/01/19) Uncoded Allergies: PENICI (Allergy, Unknown, 11/01/19) All Systems: reviewed and negative except above Subjective no signs of resp distress on current settings G tube replaced tx with 2 u PRBC WBC down , still significant 31.8 no fevers Objective Last 24 Hour Vital Signs Date Time Temp Pulse Resp B/P (MAP) Pulse Ox O2 Delivery O2 Flow Rate FiO2 11/08/19 08:00 Mechanical Ventilator 11/08/19 08:00 40 11/08/19 08:00 88 11/08/19 07:45 99.0 89 18 101/55 (70) 100 11/08/19 07:40 89 21 40 11/08/19 04:00 91 11/08/19 04:00 Mechanical Ventilator 11/08/19 04:00 40 11/08/19 04:00 98.4 82 18 97/48 (64) 100 11/08/19 03:22 93 21 40 11/08/19 00:01 Mechanical Ventilator 11/08/19 00:00 99.5 105 20 112/63 (79) 100 11/08/19 00:00 40 11/08/19 00:00 92 11/07/19 23:05 98 20 40 11/07/19 20:00 40 11/07/19 20:00 Mechanical Ventilator 11/07/19 20:00 101 11/07/19 20:00 99.1 105 20 112/63 (79) 100 11/07/19 19:51 106 20 40 11/07/19 16:00 99.5 101 22 109/56 (73) 100 11/07/19 16:00 Mechanical Ventilator 11/07/19 16:00 99 11/07/19 16:00 40 11/07/19 15:01 104 22 40 11/07/19 12:00 40 11/07/19 12:00 95 11/07/19 12:00 98.2 95 22 99/54 (69) 100 11/07/19 12:00 Mechanical Ventilator 11/07/19 11:23 95 21 40 Intake and Output 11/07/19 11/08/19 19:00 07:00 Intake Total 2000 ml 1375 ml Output Total 700 ml 800 ml Balance 1300 ml 575 ml IV Total 1700 ml 1225 ml Other 300 ml 150 ml Output Urine Total 700 ml 800 ml Objective General Appearance: no apparent distress, other - bedridden, vent dependent female Lines, tubes and drains: peripheral HEENT: normocephalic, atraumatic, anicteric, status post trach - Shiley #6, secretions small amount, thin consistency, white color , Vent AC 400-40%-20 PEEP 5 Respiratory/Chest: no respiratory distress, few scattered rhonchi Cardiovascular/Chest: regular rhythm, RUE PICC intact Abdomen: non tender, soft, new G tube Extremities: no edema, other - spastic LE Skin Exam: warm/dry, other - multiple DTI POA ( sacral, ankle foot, elbow) Neurologic: abnormal gait - bedridden, not responsive Musculoskeletal: atrophy - BLE Microbiology Date/Time Source Procedure Growth Status 11/06/19 05:15 Blood Blood Culture - Preliminary Gram Positive Cocci Resulted 11/06/19 05:00 Blood Blood Culture - Preliminary Gram Negative Bacillus 1 Resulted 11/06/19 10:04 Sputum Induced Gram Stain - Final Resulted 11/06/19 10:04 Sputum Induced Sputum Culture Pending Resulted Laboratory Tests 11/08/19 05:15: White Blood Count 34.6*H, Red Blood Count 3.02L, Hemoglobin 8.3L, Hematocrit 28.1L, Mean Corpuscular Volume 93, Mean Corpuscular Hemoglobin 27.5, Mean Corpuscular Hemoglobin Concent 29.6L, Red Cell Distribution Width 16.7H, Platelet Count 29L, Mean Platelet Volume 13.8H, Neutrophils (%) (Auto) , Lymphocytes (%) (Auto) , Monocytes (%) (Auto) , Eosinophils (%) (Auto) , Basophils (%) (Auto) , Differential Total Cells Counted 100, Neutrophils % ( Manual) 10L, Lymphocytes % (Manual) 15L, Monocytes % (Manual) 8, Eosinophils % ( Manual) 0, Basophils % (Manual) 3H, Blast Cells % 64*H, Band Neutrophils 0, Nucleated Red Blood Cells 1, Platelet Estimate DecreasedL, Platelet Morphology Normal, Polychromasia 1+, Hypochromasia 2+, Anisocytosis 1+, Sodium Level 140, Potassium Level 3.5, Chloride Level 109H, Carbon Dioxide Level 22, Anion Gap 9, Blood Urea Nitrogen 3L, Creatinine 0.7, Estimat Glomerular Filtration Rate > 60 , Glucose Level 123H, Calcium Level 7.7L, Total Bilirubin 0.4, Aspartate Amino Transf (AST/SGOT) 15, Alanine Aminotransferase (ALT/SGPT) < 6L, Alkaline Phosphatase 47, Total Creatine Kinase 24L, Total Protein 4.8L, Albumin 1.7L, Globulin 3.1, Albumin/Globulin Ratio 0.5L Current Medications Medications (Trade) Dose Ordered Sig/Inna Route PRN Reason Start Time Stop Time Status Last Admin Dose Admin Acetaminophen (Tylenol) 650 mg Q4H PRN NG fever 100.4, mild pain 11/01/19 23:15 12/01/19 23:14 11/05/19 10:39 Albuterol/ Ipratropium (Albuterol/ Ipratropium) 3 ml Q4H PRN HHN sob 11/07/19 10:15 11/12/19 10:14 Allopurinol (Zyloprim) 100 mg TID GT 11/02/19 09:00 12/02/19 08:59 11/08/19 08:42 Ascorbic Acid (Vitamin C) 500 mg DAILY GT 11/02/19 09:00 12/02/19 08:59 11/08/19 08:42 Carbidopa/Levodopa (Sinemet 25/100) 2 tab QID GT 11/02/19 09:00 12/02/19 08:59 11/08/19 08:42 Chlorhexidine Gluconate (Josefa-Hex 2%) 1 applic DAILY@2000 TOPIC 11/03/19 20:00 02/01/20 19:59 11/07/19 21:29 Daptomycin 500 mg/ Sodium Chloride 50 ml @ 100 mls/hr Q24H IV 11/08/19 16:00 11/15/19 15:59 Dextrose (Dextrose 50%) 25 ml Q30M PRN IV Hypoglycemia 11/06/19 09:15 02/04/20 09:14 Dextrose (Dextrose 50%) 50 ml Q30M PRN IV Hypoglycemia 11/06/19 09:15 02/04/20 09:14 Dextrose/Sodium Chloride 1,000 ml @ 75 mls/hr [id number] IV 11/03/19 21:00 12/03/19 20:59 11/08/19 08:15 Docusate Sodium (Colace) 100 mg DAILY GT 11/02/19 09:00 12/02/19 08:59 11/08/19 08:41 Donepezil HCl (Aricept) 10 mg QHS GT 11/02/19 21:00 12/02/19 20:59 11/07/19 21:35 Entacapone (Comtan) 400 mg THREE TIMES A DAY ORAL 11/02/19 18:00 12/02/19 17:59 11/08/19 08:42 Insulin Aspart (NovoLOG) Q6HR SUBQ 11/06/19 12:00 02/04/20 11:59 Lansoprazole (Prevacid) 30 mg BID GT 11/02/19 09:00 12/02/19 08:59 11/08/19 08:41 Metoclopramide HCl (Reglan) 5 mg Q6H PRN IVP nausea or vomiting 11/01/19 23:15 12/01/19 23:14 11/02/19 12:51 Metronidazole 100 ml @ 100 mls/hr Q8HR IVPB 11/06/19 14:00 11/13/19 13:59 11/08/19 04:38 Morphine Sulfate (Morphine Sulfate) 2 mg Q3H PRN IVP Moderate Pain (Pain Scale 4-6) 11/02/19 08:36 11/09/19 08:35 11/07/19 14:53 Multivitamins (Multivitamins W/ Minerals 15ml Liquid) 15 ml DAILY GT 11/02/19 09:00 12/02/19 08:59 11/08/19 08:42 Ondansetron HCl (Zofran) 4 mg Q4H PRN IVP Nausea & Vomiting 11/01/19 23:15 12/01/19 23:14 Oxycodone HCl (Roxicodone) 10 mg Q4HR GT 11/02/19 09:00 11/09/19 08:59 11/08/19 08:42 Pantoprazole (Protonix) 40 mg DAILY IVP 11/05/19 09:00 12/05/19 08:59 11/08/19 08:41 Polyethylene Glycol (Miralax) 17 gm DAILY PRN GT Constipation 11/02/19 08:30 12/02/19 07:59 Polymyxin B Sulfate 232393 units/Dextrose 550 ml @ 550 mls/hr EVERY 12 HOURS IV 11/05/19 10:00 11/12/19 09:59 11/08/19 08:43 Quetiapine Fumarate (SEROqueL) 50 mg QHS GT 11/02/19 21:00 12/17/19 20:59 11/07/19 21:36 Sennosides (Senokot) 8.6 mg QHS GT 11/02/19 21:00 12/02/19 20:59 11/07/19 21:32 Zinc Oxide (Desitin) 1 applic FOUR TIMES A DAY TOPIC 11/04/19 14:00 12/04/19 13:59 11/08/19 08:43 Assessment/Plan Assessment/Plan ASSESSMENT Chronic respiratory failure ventilator dependent with tracheostomy status Sepsis Bacteremia Probably pneumonia ? 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), s/p 2 u PRBC Pancytopenia Dysphagia, feeding by G-tube Advanced Parkinson's disease Severe protein calorie malnutrition Malfunctioning G tube ( inadvertently was removed) Multiple DTI , POA Ovarian mass consistent with neoplasm Suspected COVID-19 infection Severe protein calorie malnutrition Functional quadriplegia PLAN OF CARE NAZARIO ventilator support, trach care, pulm toilet baseline ABG stable on current settings, keep as is and optimize as needed CXR 11/06 unchanged, get SCX pending BCX 10/31 05/28 Staph haemolyticus, likely contaminant BCX 11/01 05/28 MRSA BCX 11/03 NGTD UCX Klebsiella Carbapenem resistant BCX 11/05 GPC and GNR abx as per ID recs -Dapto, Poly and Flagyl leuk rising, felt in addition to sepsis also contribution of AML ECHO with pEF 55%, no discrete vegetation seen COVID 11/01 NGT, Venous Duplex BLE NGT, apply SCD, monitor HH with goal to keep Hgb >7, trend PLT severe pancytopenia likely 2 to AML leukocytosis 2 to sepsis and partially possibly due to malignancy IVF, replace lytes as needed, replace K today and check Mg monitor volumes asp precautions GT was inadvertently removed s/p replacement 11/03 by GI started TF still leaking plan replacement with GJ tube but cancelled due to leukocytosis strict aspir precautions protein supplement as per RD recs continue SNF meds as per primary supportive care bowel regimen wound care as per surgeon recs overall prognosis poor, given multiple comorbidities, with superimposed AML and ovarian mass, DNR/DNI status case discussed and evaluated by supervising physician Jerrell Wilson MD 11/08/19 1711: Subjective Allergies: Coded Allergies: PENICILLINS (Verified Allergy, Unknown, 11/01/19) VANCOMYCIN (Verified Allergy, Unknown, 11/01/19) Uncoded Allergies: PENICI (Allergy, Unknown, 11/01/19) Assessment/Plan Assessment/Plan Patient seen and examined with SCREENER AND BLENDER OPERATOR. Agree with above A&P as it reflects our joint deliberations. Martha Chandler NP Nov 08, 2019 10:46 Jerrell Wilson MD Nov 08, 2019 17:11
[2019-11-08 12:00] VITALS: BP 92/48
--- NOTE | 2019-11-08 12:16 | Pre-Procedure Note/Attestation ---
Pre-Procedure Note/Attestation Complete Prior to Procedure Planned Procedure: not applicable Procedure Narrative: EGD Indications for Procedure Pre-Operative Diagnosis: dysphagia Attestation I attest that I discussed the nature of the procedure; its benefits; risks and complications; and alternatives (and the risks and benefits of such alternatives ), prior to the procedure, with the patient (or the patient's legal strategic partnership representative). I attest that, if there was a reasonable possibility of needing a blood transfusion, the patient (or the patient's legal strategic partnership representative) was given the [facility] standardized written summary, pursuant to the [place] Blood Safety Act ([place] Health and Safety Code # 1645, as amended). I attest that I re-evaluated the patient just prior to the surgery and that there has been no change in the patient's H&P, except as documented below: Negro Reeves MD Nov 08, 2019 12:16
--- NOTE | 2019-11-08 12:59 | Internal Med Progress Note ---
Subjective Date of Service: Nov 08, 2019 Physician Name Fredrick Prince Attending Physician Fredrick Prince MD Current Medications Medications (Trade) Dose Ordered Sig/Inna Route PRN Reason Start Time Stop Time Status Last Admin Dose Admin Acetaminophen (Tylenol) 650 mg Q4H PRN NG fever 100.4, mild pain 11/01/19 23:15 12/01/19 23:14 11/05/19 10:39 Albuterol/ Ipratropium (Albuterol/ Ipratropium) 3 ml Q4H PRN HHN sob 11/07/19 10:15 11/12/19 10:14 Allopurinol (Zyloprim) 100 mg TID GT 11/02/19 09:00 12/02/19 08:59 11/08/19 08:42 Ascorbic Acid (Vitamin C) 500 mg DAILY GT 11/02/19 09:00 12/02/19 08:59 11/08/19 08:42 Carbidopa/Levodopa (Sinemet 25/100) 2 tab QID GT 11/02/19 09:00 12/02/19 08:59 11/08/19 08:42 Chlorhexidine Gluconate (Josefa-Hex 2%) 1 applic DAILY@2000 TOPIC 11/03/19 20:00 02/01/20 19:59 11/07/19 21:29 Daptomycin 500 mg/ Sodium Chloride 50 ml @ 100 mls/hr Q24H IV 11/08/19 16:00 11/15/19 15:59 Dextrose (Dextrose 50%) 25 ml Q30M PRN IV Hypoglycemia 11/06/19 09:15 02/04/20 09:14 Dextrose (Dextrose 50%) 50 ml Q30M PRN IV Hypoglycemia 11/06/19 09:15 02/04/20 09:14 Dextrose/Sodium Chloride 1,000 ml @ 75 mls/hr [id number] IV 11/03/19 21:00 12/03/19 20:59 11/08/19 08:15 Docusate Sodium (Colace) 100 mg DAILY GT 11/02/19 09:00 12/02/19 08:59 11/08/19 08:41 Donepezil HCl (Aricept) 10 mg QHS GT 11/02/19 21:00 12/02/19 20:59 11/07/19 21:35 Entacapone (Comtan) 400 mg THREE TIMES A DAY ORAL 11/02/19 18:00 12/02/19 17:59 11/08/19 08:42 Insulin Aspart (NovoLOG) Q6HR SUBQ 11/06/19 12:00 02/04/20 11:59 Lansoprazole (Prevacid) 30 mg BID GT 11/02/19 09:00 12/02/19 08:59 11/08/19 08:41 Metoclopramide HCl (Reglan) 5 mg Q6H PRN IVP nausea or vomiting 11/01/19 23:15 12/01/19 23:14 11/02/19 12:51 Metronidazole 100 ml @ 100 mls/hr Q8HR IVPB 11/06/19 14:00 11/13/19 13:59 11/08/19 04:38 Morphine Sulfate (Morphine Sulfate) 2 mg Q3H PRN IVP Moderate Pain (Pain Scale 4-6) 11/02/19 08:36 11/09/19 08:35 11/07/19 14:53 Multivitamins (Multivitamins W/ Minerals 15ml Liquid) 15 ml DAILY GT 11/02/19 09:00 12/02/19 08:59 11/08/19 08:42 Ondansetron HCl (Zofran) 4 mg Q4H PRN IVP Nausea & Vomiting 11/01/19 23:15 12/01/19 23:14 Oxycodone HCl (Roxicodone) 10 mg Q4HR GT 11/02/19 09:00 11/09/19 08:59 11/08/19 08:42 Pantoprazole (Protonix) 40 mg DAILY IVP 11/05/19 09:00 12/05/19 08:59 11/08/19 08:41 Polyethylene Glycol (Miralax) 17 gm DAILY PRN GT Constipation 11/02/19 08:30 12/02/19 07:59 Polymyxin B Sulfate [id number] units/Dextrose 550 ml @ 550 mls/hr EVERY 12 HOURS IV 11/05/19 10:00 11/12/19 09:59 11/08/19 08:43 Quetiapine Fumarate (SEROqueL) 50 mg QHS GT 11/02/19 21:00 7/25/20 20:59 11/07/19 21:36 Sennosides (Senokot) 8.6 mg QHS GT 11/02/19 21:00 12/02/19 20:59 11/07/19 21:32 Zinc Oxide (Desitin) 1 applic FOUR TIMES A DAY TOPIC 11/04/19 14:00 12/04/19 13:59 11/08/19 08:43 Allergies: Coded Allergies: PENICILLINS (Verified Allergy, Unknown, 11/01/19) VANCOMYCIN (Verified Allergy, Unknown, 11/01/19) Uncoded Allergies: PENICI (Allergy, Unknown, 11/01/19) ROS Limited/Unobtainable: Yes All Systems: reviewed and negative except above Subjective non verbal, chronic trach GJ tube failed due to big whole need TPN Objective Last Vital Signs Date Time Temp Pulse Resp B/P (MAP) Pulse Ox O2 Delivery O2 Flow Rate FiO2 11/08/19 12:00 98.4 85 18 92/48 (63) 100 11/08/19 12:00 40 11/08/19 08:00 Mechanical Ventilator General Appearance: no apparent distress EENT: other - intubated on vent Cardiovascular: normal rate, regular rhythm Respiratory/Chest: rhonchi - bilaterally Abdomen: normal bowel sounds, non tender, soft Neurologic: unresponsiveness, aphasia Laboratory Tests Test 11/08/19 05:15 White Blood Count 34.6 K/UL (4.8-10.8) *H Red Blood Count 3.02 M/UL (4.20-5.40) L Hemoglobin 8.3 G/DL (12.0-16.0) L Hematocrit 28.1 % (37.0-47.0) L Mean Corpuscular Volume 93 FL (80-99) Mean Corpuscular Hemoglobin 27.5 PG (27.0-31.0) Mean Corpuscular Hemoglobin Concent 29.6 G/DL (32.0-36.0) L Red Cell Distribution Width 16.7 % (11.6-14.8) H Platelet Count 29 K/UL (150-450) L Mean Platelet Volume 13.8 FL (6.5-10.1) H Neutrophils (%) (Auto) % (45.0-75.0) Lymphocytes (%) (Auto) % (20.0-45.0) Monocytes (%) (Auto) % (1.0-10.0) Eosinophils (%) (Auto) % (0.0-3.0) Basophils (%) (Auto) % (0.0-2.0) Differential Total Cells Counted 100 Neutrophils % (Manual) 10 % (45-75) L Lymphocytes % (Manual) 15 % (20-45) L Monocytes % (Manual) 8 % (1-10) Eosinophils % (Manual) 0 % (0-3) Basophils % (Manual) 3 % (0-2) H Blast Cells % 64 % (0-0) *H Band Neutrophils 0 % (0-8) Nucleated Red Blood Cells 1 /100 WBC Platelet Estimate Decreased L Platelet Morphology Normal Polychromasia 1+ Hypochromasia 2+ Anisocytosis 1+ Sodium Level 140 MMOL/L (136-145) Potassium Level 3.5 MMOL/L (3.5-5.1) Chloride Level 109 MMOL/L (98-107) H Carbon Dioxide Level 22 MMOL/L (21-32) Anion Gap 9 mmol/L (5-15) Blood Urea Nitrogen 3 mg/dL (7-18) L Creatinine 0.7 MG/DL (0.55-1.30) Estimat Glomerular Filtration Rate > 60 mL/min (>60) Glucose Level 123 MG/DL (74-106) H Calcium Level 7.7 MG/DL (8.5-10.1) L Total Bilirubin 0.4 MG/DL (0.2-1.0) Aspartate Amino Transf (AST/SGOT) 15 U/L (15-37) Alanine Aminotransferase (ALT/SGPT) < 6 U/L (12-78) L Alkaline Phosphatase 47 U/L (46-116) Total Creatine Kinase 24 U/L (26-308) L Total Protein 4.8 G/DL (6.4-8.2) L Albumin 1.7 G/DL (3.4-5.0) L Globulin 3.1 g/dL Albumin/Globulin Ratio 0.5 (1.0-2.7) L Microbiology Date/Time Source Procedure Growth Status 11/06/19 05:15 Blood Blood Culture - Preliminary Gram Positive Cocci Resulted 11/06/19 05:00 Blood Blood Culture - Preliminary Gram Negative Bacillus 1 Resulted 11/06/19 10:04 Sputum Induced Gram Stain - Final Resulted 11/06/19 10:04 Sputum Induced Sputum Culture Pending Resulted Intake and Output 11/07/19 11/08/19 19:00 07:00 Intake Total 2000 ml 1375 ml Output Total 700 ml 800 ml Balance 1300 ml 575 ml IV Total 1700 ml 1225 ml Other 300 ml 150 ml Output Urine Total 700 ml 800 ml Objective unable to place J tube . 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 d/w GI PGE/J in few week unable to put PEG J tube due to large whole KCL IV replete prn s/p Mg sulfate IV 2 gram flagyl IV leukocytosis could be AML flare s/p 3 units PRBC tx so far IV abx wound care f/u cx ID f/u electrolyte replete as needed enteral feeding ventilator pulm HHN dong pain control DNAR status Fredrick Prince MD Internal Medicine [phone] time spent today over 35 minutes stamp time on this note may NOT be the actual encounter time. Fredrick Prince MD Nov 08, 2019 12:59
--- NOTE | 2019-11-08 13:10 | NUR ---
NURSE NOTES: GJ tube procedure held due to the large opening of previous G-tube insertion site. Per RN from GI lab, they will wait few more days. The previous G-tube removed. Will follow up with Dr. Garrison to adjust the route of meds thru IV.
--- NOTE | 2019-11-08 13:23 | Endoscopy Procedure Note ---
Endoscopy Procedure Note General Indication for Procedure: dysphagia Procedures Performed: EGD Operative Findings/Diagnosis: same Specimen: none Pt Tolerated Procedure Well: Yes Estimated Blood Loss: none Anesthesia Anesthesiologist: jean Anesthesia: MAC Inserted Devices Implant(s) used?: No GI Core Measures 50 yrs or older w/o bx or poly: Not Applicable 10yrs. F/U recommended: Not Applicable Negro Reeves MD Nov 08, 2019 13:23
--- NOTE | 2019-11-08 13:29 | Immediate Post-Op Evaluation ---
Immediate Post-Op Evalulation Immediate Post-Op Evalulation Procedure: GJT placement Date of Evaluation: Nov 08, 2019 Time of Evaluation: 13:27 IV Fluids: 300 Blood Pressure Systolic: 98 Blood Pressure Diastolic: 50 Pulse Rate: 98 Respiratory Rate: 18 O2 Sat by Pulse Oximetry: 98 Temperature (Fahrenheit): 98.4 Nausea: No Vomiting: No Complications none Patient Status: awake, reacts, ventilated - Trach 6.0 Shiley, AC 40% 400 RR- 18 Peep 5 Hydration Status: adequate Drug: none Deana Cota CRNA Nov 08, 2019 13:29
--- NOTE | 2019-11-08 13:34 | Anethesia Preoperative Eval ---
Anesthesia Pre-op PMH/ROS General Date of Evaluation: Nov 08, 2019 Time of Evaluation: 12:50 Anesthesiologist: rebekah ASA Score: ASA 4 Mallampati Score Class I : Soft palate, uvula, fauces, pillars visible Class II: Soft palate, uvula, fauces visible Class III: Soft palate, base of uvula visible Class IV: Only hard plate visible Mallampati Classification: Class III Surgeon: gonzález Diagnosis: malfunction Surgical Procedure: GJT placement Anesthesia History: none Family History: no anesthesia problems Allergies: Coded Allergies: PENICILLINS (Verified Allergy, Unknown, 11/01/19) VANCOMYCIN (Verified Allergy, Unknown, 11/01/19) Uncoded Allergies: PENICI (Allergy, Unknown, 11/01/19) Medications: see eMAR Patient NPO?: Yes NPO Date: Nov 08, 2019 NPO Time: 00:01 Past Medical History Cardiovascular: Reports: HTN, CAD Pulmonary: Reports: other; Denies: asthma, COPD, BRADLY Gastrointestinal/Genitourinary: Reports: GERD, CRI, other - malnutition Neurologic/Psychiatric: Reports: dementia Endocrine: Denies: DM, hypothyroidism, steroids, other HEENT: Denies: cataract (L), cataract (R), glaucoma, [place] (L), [place] (R), other Hematology/Immune: Reports: anemia; Denies: DVT, bleeding disorder, other Musculoskeletal/Integumentary: Denies: OA, RA, DJD, DDD, edema, other Other: other - AML PSxH Narrative: unknown Anesthesia Pre-op Phys. Exam Physician Exam Last Vital Signs Date Time Temp Pulse Resp B/P (MAP) Pulse Ox O2 Delivery O2 Flow Rate FiO2 11/08/19 12:00 98.4 85 18 92/48 (63) 100 11/08/19 12:00 40 11/08/19 08:00 Mechanical Ventilator Constitutional: other - see chart Neurologic: other - disoriented Cardiovascular: RRR Respiratory: other - ronchi Gastrointestinal: other - distended. Airway Exam Mallampati Classification 3 Mallampati Score: Class III MO: limited ROM: limited Teeth: broken Anesthesia Pre-op A/P Labs Hematology Test 11/08/19 05:15 White Blood Count 34.6 K/UL (4.8-10.8) *H Red Blood Count 3.02 M/UL (4.20-5.40) L Hemoglobin 8.3 G/DL (12.0-16.0) L Hematocrit 28.1 % (37.0-47.0) L Mean Corpuscular Volume 93 FL (80-99) Mean Corpuscular Hemoglobin 27.5 PG (27.0-31.0) Mean Corpuscular Hemoglobin Concent 29.6 G/DL (32.0-36.0) L Red Cell Distribution Width 16.7 % (11.6-14.8) H Platelet Count 29 K/UL (150-450) L Mean Platelet Volume 13.8 FL (6.5-10.1) H Neutrophils (%) (Auto) % (45.0-75.0) Lymphocytes (%) (Auto) % (20.0-45.0) Monocytes (%) (Auto) % (1.0-10.0) Eosinophils (%) (Auto) % (0.0-3.0) Basophils (%) (Auto) % (0.0-2.0) Differential Total Cells Counted 100 Neutrophils % (Manual) 10 % (45-75) L Lymphocytes % (Manual) 15 % (20-45) L Monocytes % (Manual) 8 % (1-10) Eosinophils % (Manual) 0 % (0-3) Basophils % (Manual) 3 % (0-2) H Blast Cells % 64 % (0-0) *H Band Neutrophils 0 % (0-8) Nucleated Red Blood Cells 1 /100 WBC Platelet Estimate Decreased L Platelet Morphology Normal Polychromasia 1+ Hypochromasia 2+ Anisocytosis 1+ Chemistry Test 11/08/19 05:15 Sodium Level 140 MMOL/L (136-145) Potassium Level 3.5 MMOL/L (3.5-5.1) Chloride Level 109 MMOL/L (98-107) H Carbon Dioxide Level 22 MMOL/L (21-32) Anion Gap 9 mmol/L (5-15) Blood Urea Nitrogen 3 mg/dL (7-18) L Creatinine 0.7 MG/DL (0.55-1.30) Estimat Glomerular Filtration Rate > 60 mL/min (>60) Glucose Level 123 MG/DL (74-106) H Calcium Level 7.7 MG/DL (8.5-10.1) L Total Bilirubin 0.4 MG/DL (0.2-1.0) Aspartate Amino Transf (AST/SGOT) 15 U/L (15-37) Alanine Aminotransferase (ALT/SGPT) < 6 U/L (12-78) L Alkaline Phosphatase 47 U/L (46-116) Total Creatine Kinase 24 U/L (26-308) L Total Protein 4.8 G/DL (6.4-8.2) L Albumin 1.7 G/DL (3.4-5.0) L Globulin 3.1 g/dL Albumin/Globulin Ratio 0.5 (1.0-2.7) L Studies Pre-op Studies: EKG - SR/ST, echo - 55%; covid neg Risk Assessment & Plan Plan: mac Status Change Before Surgery: No Pre-Antibiotics Drug: see chart Deana Cota RING STRIKER Nov 08, 2019 13:34
--- NOTE | 2019-11-08 13:41 | NUR ---
CASE MANAGEMENT: REVIEW SI: ANEMIA . UTI . TRACHEOSTOMY DEPENDENCE T 99.0 HR 89 RR 18 BP 92/48 SAT 100% MECH VENT FIO2 40 WBC 34.6 H/H 8.3/28.1 BLAST CELLS 64% IS: DAPTOMYCIN IV Q24HR D5 NS IVF @ 75ML/HR POLYMYXIN B SULFATE IV Q12HR PROTONIX IV QD FLAGYL IV Q8HR G-J TUBE PLACEMENT PENDING STEP DOWN UNIT STATUS DCP: PATIENT IS FROM [facility]
--- NOTE | 2019-11-08 15:04 | Surgery Progress Note ---
Surgery Progress Note Subjective Additional Comments no acute events Objective Last 24 Hour Vital Signs Date Time Temp Pulse Resp B/P (MAP) Pulse Ox O2 Delivery O2 Flow Rate FiO2 11/08/19 13:29 98 18 98 11/08/19 12:00 98.4 85 18 92/48 (63) 100 11/08/19 12:00 40 11/08/19 12:00 94 11/08/19 11:10 94 17 40 11/08/19 08:00 Mechanical Ventilator 11/08/19 08:00 40 11/08/19 08:00 88 11/08/19 07:45 99.0 89 18 101/55 (70) 100 11/08/19 07:40 89 21 40 11/08/19 04:00 91 11/08/19 04:00 Mechanical Ventilator 11/08/19 04:00 40 11/08/19 04:00 98.4 82 18 97/48 (64) 100 11/08/19 03:22 93 21 40 11/08/19 00:01 Mechanical Ventilator 11/08/19 00:00 99.5 105 20 112/63 (79) 100 11/08/19 00:00 40 11/08/19 00:00 92 11/07/19 23:05 98 20 40 11/07/19 20:00 40 11/07/19 20:00 Mechanical Ventilator 11/07/19 20:00 101 11/07/19 20:00 99.1 105 20 112/63 (79) 100 11/07/19 19:51 106 20 40 11/07/19 16:00 99.5 101 22 109/56 (73) 100 11/07/19 16:00 Mechanical Ventilator 11/07/19 16:00 99 11/07/19 16:00 40 I&O Intake and Output 11/07/19 11/08/19 19:00 07:00 Intake Total 2000 ml 1375 ml Output Total 700 ml 800 ml Balance 1300 ml 575 ml IV Total 1700 ml 1225 ml Other 300 ml 150 ml Output Urine Total 700 ml 800 ml Dressing: other Wound: other Drains: other Cardiovascular: RSR Respiratory: decreased breath sounds Abdomen: soft, present bowel sounds Extremities: no cyanosis Laboratory Tests Test 11/08/19 05:15 White Blood Count 34.6 K/UL (4.8-10.8) *H Red Blood Count 3.02 M/UL (4.20-5.40) L Hemoglobin 8.3 G/DL (12.0-16.0) L Hematocrit 28.1 % (37.0-47.0) L Mean Corpuscular Volume 93 FL (80-99) Mean Corpuscular Hemoglobin 27.5 PG (27.0-31.0) Mean Corpuscular Hemoglobin Concent 29.6 G/DL (32.0-36.0) L Red Cell Distribution Width 16.7 % (11.6-14.8) H Platelet Count 29 K/UL (150-450) L Mean Platelet Volume 13.8 FL (6.5-10.1) H Neutrophils (%) (Auto) % (45.0-75.0) Lymphocytes (%) (Auto) % (20.0-45.0) Monocytes (%) (Auto) % (1.0-10.0) Eosinophils (%) (Auto) % (0.0-3.0) Basophils (%) (Auto) % (0.0-2.0) Differential Total Cells Counted 100 Neutrophils % (Manual) 10 % (45-75) L Lymphocytes % (Manual) 15 % (20-45) L Monocytes % (Manual) 8 % (1-10) Eosinophils % (Manual) 0 % (0-3) Basophils % (Manual) 3 % (0-2) H Blast Cells % 64 % (0-0) *H Band Neutrophils 0 % (0-8) Nucleated Red Blood Cells 1 /100 WBC Platelet Estimate Decreased L Platelet Morphology Normal Polychromasia 1+ Hypochromasia 2+ Anisocytosis 1+ Sodium Level 140 MMOL/L (136-145) Potassium Level 3.5 MMOL/L (3.5-5.1) Chloride Level 109 MMOL/L (98-107) H Carbon Dioxide Level 22 MMOL/L (21-32) Anion Gap 9 mmol/L (5-15) Blood Urea Nitrogen 3 mg/dL (7-18) L Creatinine 0.7 MG/DL (0.55-1.30) Estimat Glomerular Filtration Rate > 60 mL/min (>60) Glucose Level 123 MG/DL (74-106) H Calcium Level 7.7 MG/DL (8.5-10.1) L Total Bilirubin 0.4 MG/DL (0.2-1.0) Aspartate Amino Transf (AST/SGOT) 15 U/L (15-37) Alanine Aminotransferase (ALT/SGPT) < 6 U/L (12-78) L Alkaline Phosphatase 47 U/L (46-116) Total Creatine Kinase 24 U/L (26-308) L Total Protein 4.8 G/DL (6.4-8.2) L Albumin 1.7 G/DL (3.4-5.0) L Globulin 3.1 g/dL Albumin/Globulin Ratio 0.5 (1.0-2.7) L Plan Problems: (1) Decubitus skin ulcer Assessment & Plan: Pt presented on admission with multiple Pressure Injuries, and contractures. Large Soft Mass noted to lateral R chest ,just inferior to Breast.Soft mass that uis violaceous and denuded. Unstageable Pressure injury R thoracic. Wound presents as partially opened DTPI( L)6cm x (W)8.5cm. 95% Soft eschar flap,5% dee. Marginal erythema along borders In addition scattered linear and purple area periwound. Full thickness stage 4 Sacral Pressure Injury(L)9.3cm x (W)8.7cm. Base of wound is 95% necrotic,but bone is palpable.Mild odor noted. No exudate noted. Non-blanching erythema periwound. Unstageable Pressure Injury R trochanter(L)3.5cm x (W)4.2cm. Base of wound is 90 % soft eschar, 10% pink epithelial. Edges adherent to base of wound .No erythema induration or fluctuance periwound. Unstageable Pressure injury R Ischium(L)3.5cm x (W)2.5cm. Dry eschar at base of wound, edges are adherent with surrounding pink epithelial. No erythema or induration periwound. DTPI L trochanter(L)4cm x (W)1cm. Stable dry eschar L Hallux(L)1.6cm x (W)2cm.NO erythema fluctuance or induration periwound. L 1st metatarsal TMA noted. Stable dry eschar distal/lateral L foot (L)1.5cm x (W)3cm. No erythema, induration or fluctuance periwound. DTPI noted to plantar L foot.(L)0.9cm x (W)0.9cm. Base of wound is fluctuant, purple with maroon borders. Unstageable Pressure injury L lateral Malleolus. Stable dry eschar noted.No erythema or induration periwound. L heel is boggy with non-blanching erythema. Unstageable Pressure injury R Hallux and plantar aspect(L)3.5cm x (W)3.4cm. Soft eschar at base of wound with marginal erythema along borders. R heel is boggy with Non-Blanching erythema. Unstageable Presure injury distal/Lateral R foot . Stable dry eschar noted . No erythema of fluctuance periwound. Tx.Plan: Cleanse Sacral Wound with Saline. Loosely pack with Therahoney impregnated Kerlix.Applpy Moisture Barrier Paste periwound. Cover with Optifoam drsg. Change Daily and prn. Cleanse Soft Mass R chest with Saline. Cover with Optifoam drsg. Change Daily and prn. Cleanse wounds R trochanter, R Ischium with Saline. Apply Moisture Barrier Paste.Cover with Optifoam drsg. Change every 3 days and prn. Apply Moisture Barrier to L trochanter. Cvoer with Optifoam drsg. Change every 3 days and prn. Apply Betadine to wounds R and L foot. Cover each wound with Optifoam drsg. Changee very 3 days and prn. Apply Cavilon Skin Barrier to both heels. Cover each heel with Optifoam drsg. Change every 7 days and prn. APM/ANA Mattress overlay. turn q2h nutritional optimization (2) Malnutrition Assessment & Plan: DAILY ESTIMATED NEEDS: Needs based on Critical care, wounds, 64kg 22-28 kcals/kg [id number] total kcals 1.25-2 g protein/kg 80-128 g total protein 25-30 mL/kg 5113-1678 total fluid mLs NUTRITION DIAGNOSIS: Swallowing difficulty r/t respiratory status as evidenced by pt is trach and peg dep. CURRENT TF:NPO ENTERAL NUTRITION RECOMMENDATIONS: VITAL AF 1.2 @ 55ml/hr x24 hrs to provide 1320ml, 1584 kcal, 99g pro, 1071ml free H2O - Post PEJ placement, initiate Vital AF 1.2 @ 25ml/hr x 6hrs, advance 10ml q 4- 6 hrs as tolerated to goal. - Flush per - HOB over 30 degrees ADDITIONAL RECOMMENDATIONS: 1) Per SNF: 65 inches (5'5"); 141 lbs (64.1kg) 2) Wound care: add MEIR BID via GT w/ TF order 3) Monitor lytes, replete as needed . (3) Anemia Assessment & Plan: transfused trend labs no active bleeding stool study GI eval (4) UTI (urinary tract infection) (5) Tracheostomy dependence Assessment & Plan: Findings: The left hemidiaphragm is elevated. Atelectatic changes are present in the left lung base. There is minimal right basilar atelectasis. No definite infiltrates. There is a tracheostomy. Impression: Elevated left hemidiaphragm with considerable left basilar atelectasis. Less extensive right basilar atelectasis. Inspiration is suboptimal. Interim development of opacity of the left mid and lower lung. The left hemidiaphragm is obscured. Right lung is probably clear , although there is crowding of bronchovascular lung volumes. Tracheostomy remains. Impression: Since 11/01/2019, interim development of left mid and lower lung infiltrates versus edema and possibly pleural fluid Juan Houser Nov 08, 2019 15:04
[2019-11-08 16:00] VITALS: BP 96/51
[2019-11-08] MEDS: DAPTOmycin 500 MG in NS 50 ML IV SCH (16:46)
--- NOTE | 2019-11-08 18:00 | Procedure Note ---
DATE OF PROCEDURE: 11/08/2019 SURGEON: Negro Reeves MD. REFERRING PHYSICIAN: Fredrick Prince MD. PROCEDURE: Upper endoscopy with G-tube removal. ANESTHESIA: Per SWITCHBOARD INSPECTOR, Deana Tarrillion. INSTRUMENT: Olympus adult flexible upper endoscope. INDICATION: Dysphagia. REASON FOR PROCEDURE: The procedure, risks, benefits, and possible consequences, including hemorrhage, aspiration, perforation and infection, and alternative treatments, were explained to the patient/legal guardian by Dr. Negro Reeves and the patient/legal guardian understood and accepted these risks. PROCEDURE IN DETAIL: After informed consent was obtained and the patient was adequately sedated, Olympus upper endoscope was advanced from the mouth into second portion of the duodenum and retroflexion was performed in the stomach. We removed the G-tube and introduced a 24-Guamanian GJ-tube. to advance the tube into the small intestine, but the hole was so big that the tube will be reflexed back into the stomach and also the air was leaking. After careful examination, I realized that the hole is extremely large. 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 I am not sure how long will that take. Meanwhile, we are going to continue to hydrate the patient with IV fluids and monitor. We will discuss with the primary team. I want to thank Dr. Prince for this kind referral. Negro Reeves M.D. DR: ALEC JOB#: [id number] CC:
--- NOTE | 2019-11-08 18:47 | NUR ---
NURSE NOTES: Made Dr. Prince aware of no access for oral/g-tube meds. No NG tube ordered at time and hold all oral meds until a new GJ tube inserted. Made Dr. Marroquin aware also about the plt 29k today. No new order received. Will continue monitor for s/s of bleeding.
--- NOTE | 2019-11-08 19:15 | NUR ---
NURSE NOTES: Received pt from SRIKANTH Jc. pt is resting in bed, obtunded, unable to make needs known. no s/sx of pain noted. trach to vent settings are as follows: Shiley: 6, AC: 20, VT: 400, FiO2: 40%, PEEP: 5. tolerating well, saturation: 100%, no s/sx of respiratory distress noted. pt is currently NPO. F/C is patent and intact, draining well to gravity. MATEO PICC line is patent and intact, running D5NS at 75 cc/hr. dressing dry and intact. bed in lowest position and locked, siderails up X3, all needs attended to. will continue to monitor.
--- NOTE | 2019-11-08 19:24 | NUR ---
HAND-OFF: Report given to SRIKANTH Johnson. Pt remains stable.
[2019-11-08 20:00] VITALS: BP 98/54
--- NOTE | 2019-11-08 20:10 | NUR ---
NURSE NOTES: pt's temp noted to be 100.2. cooling measures applied. will continue to monitor.
[2019-11-08] MEDS: Dyna-Hex 2% Top Sol 2oz TOPIC SCH (20:25)
[2019-11-08] MEDS: Donepezil 10mg tab GT SCH (21:00)
[2019-11-08] MEDS: Sennosides 8.6mg tab GT SCH (21:00)
--- NOTE | 2019-11-08 23:45 | NUR ---
NURSE NOTES: temp: 98.8. will continue to monitor.
[2019-11-09] VITALS: BP 110/59
[2019-11-09] MEDS: oxyCODONE 5mg IR tab GT SCH ×2 (01:00→05:00)
--- NOTE | 2019-11-09 01:08 | NUR ---
NURSE NOTES: pt appears to be resting comfortably. no acute distress noted.
[2019-11-09 04:00] VITALS: BP 126/62
[2019-11-09 05:09] LABS: HEMATOCRIT 20.1 % (37.0-47.0); MEAN CORPUSCULAR VOLUME 93 FL (80-99); PLATELET COUNT 17 K/UL (150-450); RED BLOOD COUNT 2.16 M/UL (4.20-5.40); RED CELL DISTRIBUTION WIDTH 16.1 % (11.6-14.8); WHITE BLOOD COUNT 2.6 K/UL (4.8-10.8)
[2019-11-09] MEDS: NovoLOG Insulin Flexpen SUBQ SCH ×4 (06:00→17:44)
--- NOTE | 2019-11-09 06:55 | 48 Hour Post Anesthesia Eval ---
Post Anesthesia Evaluation Procedure: GJT placement Date of Evaluation: Nov 09, 2019 Time of Evaluation: 06:55 Blood Pressure Systolic: 125 0: 66 Pulse Rate: 70 Respiratory Rate: 14 O2 Sat by Pulse Oximetry: 98 Airway: patent Nausea: No Vomiting: No Hydration Status: adequate Cardiopulmonary Status: stable Mental Status/LOC: patient returned to baseline Post-Anesthesia Complications: none Follow-up care needed: N/A Deana Cota CRNA Nov 09, 2019 06:55
--- NOTE | 2019-11-09 07:21 | NUR ---
HAND-OFF: Report given to Ronaldo Jenkins RN. endorsed plan of care.
--- NOTE | 2019-11-09 07:30 | NUR ---
NURSE NOTES: Received report from SRIKANTH Johnson. Patient is resting in bed, in stable condition. No s/sx of SOB, breathing is even and unlabored, on vent - vent settings are as ordered. Patient is nonverbal, observed no presence of pain or discomfort at this time. Per night nurse, patient does not have GJ tube at this time, no NGT per instructions of GI consult. Per night nurse Dr. Prince is aware patient is not receiving PO medications. Noted. Bed is in lowest position, brakes engaged. Call light is kept within easy reach. Will continue to monitor patient. Addendum: 11/09/19 at 0759 by VINNY WEBB RN NURSE NOTES: Correction: No NGT insertion at this time per Dr. Prince. Will continue to monitor patient.
[2019-11-09 08:00] VITALS: BP 104/54
[2019-11-09] MEDS: Levodopa/Carbidopa 25/100 tab GT SCH ×4 (08:00→21:00)
[2019-11-09] MEDS: Docusate 100mg/10ml Liq GT SCH (08:00)
[2019-11-09] MEDS: Multivitamins W/Minerals 15 ML UDC GT SCH (08:00)
[2019-11-09] MEDS: Entacapone 200mg tab ORAL SCH ×3 (08:01→17:44)
[2019-11-09] MEDS: Allopurinol 100mg Tab GT SCH ×3 (08:01→17:44)
[2019-11-09] MEDS: Ascorbic Acid 500mg tab GT SCH (08:01)
[2019-11-09 08:26] LABS: HEMATOCRIT 28.8 % (37.0-47.0); HEMOGLOBIN 8.6 G/DL (12.0-16.0); MEAN CORPUSCULAR VOLUME 92 FL (80-99); PLATELET COUNT 33 K/UL (150-450); RED BLOOD COUNT 3.14 M/UL (4.20-5.40); RED CELL DISTRIBUTION WIDTH 16.7 % (11.6-14.8)
[2019-11-09 08:28] LABS: WHITE BLOOD COUNT 35.8 K/UL (4.8-10.8)
[2019-11-09] MEDS: Polymyxin B Sulfate 500,000 UNITS in D5W 500ml 550 ML IV SCH ×2 (08:39→21:25)
[2019-11-09] MEDS: Desitin Rash Paste TOPIC SCH ×4 (08:40→21:25)
[2019-11-09] MEDS: Pantoprazole Inj IVP SCH (08:40)
[2019-11-09] MEDS: D5NS 1,000 ML IV SCH (09:23)
--- NOTE | 2019-11-09 10:17 | NUR ---
NURSE NOTES: Per night nurse report patient has dong for chronic use, foely inserted from SNF. Dong continued during hospital stay. Charge nurse made aware. Will continue to monitor patient.
[2019-11-09 12:00] VITALS: BP 112/51
--- NOTE | 2019-11-09 12:48 | NUR ---
RD ASSESSMENT & RECOMMENDATIONS SEE CARE ACTIVITY FOR COMPLETE ASSESSMENT DAILY ESTIMATED NEEDS: Needs based on Critical care, wounds, 64kg 22-28 kcals/kg 4076-6734 total kcals 1.25-2 g protein/kg 80-128 g total protein 25-30 mL/kg 1751-7942 total fluid mLs NUTRITION DIAGNOSIS: Swallowing difficulty r/t respiratory status as evidenced by pt is trach and peg dep. CURRENT TF:NPO PARENTERAL NUTRITION RECOMMENDATIONS: D/AA Rate: 70 IL Rate: 8 Total Rate: 78 Volume: 1872 % Dextrose: 18 % AA: 5.5 Energy (kcals/kg): 1781 Protein (g/kg protein): 92 Nonprotein KCALS: 1412 GIR (mg CHO/kg/min): 3.3 % Fat KCALS: 22 NPC: N Ratio: 96:1 TPN Comment: - D18%, AA 5.5% @70ml/hr w/ 20%IL @8ml/hr - all 3:1 - Start at low rate 18ml/hr for 6 hrs. Advance by 15ml/hr q4-6 hrs to goal rate of 78ml/hr - TF at goal meets 100% est needs, provides 28 kcal/kg and 1.4g/kg pro. - GIR<5 - IL <30% ------ ADDITIONAL RECOMMENDATIONS: 1) Per SNF: 65 inches (5'5"); 141 lbs (64.1kg) 2) Wound care: add MEIR BID via GT w/ TF order 3) Monitor lytes, BG, and LFT's on TPN -> Rec to DC current IVF w/ TPN 4) Pt at risk for refeeding, start TPN @low rate 18ml/hr. Advance slowly to goal.
--- NOTE | 2019-11-09 13:29 | Surgery Progress Note ---
Surgery Progress Note Subjective Symptoms: tolerating diet, voiding well, passing flatus, other Objective Last 24 Hour Vital Signs Date Time Temp Pulse Resp B/P (MAP) Pulse Ox O2 Delivery O2 Flow Rate FiO2 11/09/19 12:00 90 11/09/19 12:00 98.6 92 18 112/51 (71) 100 11/09/19 12:00 40 11/09/19 12:00 Mechanical Ventilator 11/09/19 10:37 88 24 40 11/09/19 08:00 98.1 91 17 104/54 (71) 100 91 11/09/19 08:00 40 11/09/19 08:00 Mechanical Ventilator 11/09/19 07:40 90 11/09/19 07:14 90 22 40 11/09/19 06:55 70 14 98 11/09/19 04:00 40 11/09/19 04:00 98.1 95 24 126/62 (83) 100 11/09/19 04:00 Mechanical Ventilator 11/09/19 04:00 94 11/09/19 03:08 93 24 40 11/09/19 00:00 98.8 91 24 110/59 (76) 100 11/09/19 00:00 Mechanical Ventilator 11/09/19 00:00 92 11/08/19 23:37 94 21 40 11/08/19 20:01 94 24 40 11/08/19 20:00 40 11/08/19 20:00 Mechanical Ventilator 11/08/19 20:00 100.2 98 24 98/54 (69) 100 11/08/19 20:00 93 11/08/19 16:00 40 11/08/19 16:00 Mechanical Ventilator 11/08/19 16:00 99.7 98 18 96/51 (66) 100 11/08/19 16:00 96 11/08/19 15:20 94 23 40 I&O Intake and Output 11/08/19 11/09/19 19:00 07:00 Intake Total 1650 ml 1618.75 ml Output Total 350 ml 1200 ml Balance 1300 ml 418.75 ml IV Total 1550 ml 1618.75 ml Other 100 ml Output Urine Total 350 ml 1200 ml Dressing: saturated Wound: other Drains: other Cardiovascular: RSR Respiratory: decreased breath sounds Abdomen: soft, present bowel sounds Extremities: edema, no cyanosis Laboratory Tests Test 11/09/19 03:40 11/09/19 08:15 White Blood Count 2.6 K/UL (4.8-10.8) #L 35.8 K/UL (4.8-10.8) #*H Red Blood Count 2.16 M/UL (4.20-5.40) L 3.14 M/UL (4.20-5.40) L Hemoglobin 6.0 G/DL (12.0-16.0) *L 8.6 G/DL (12.0-16.0) #L Hematocrit 20.1 % (37.0-47.0) L 28.8 % (37.0-47.0) #L Mean Corpuscular Volume 93 FL (80-99) 92 FL (80-99) Mean Corpuscular Hemoglobin 27.8 PG (27.0-31.0) 27.2 PG (27.0-31.0) Mean Corpuscular Hemoglobin Concent 29.8 G/DL (32.0-36.0) L 29.7 G/DL (32.0-36.0) L Red Cell Distribution Width 16.1 % (11.6-14.8) H 16.7 % (11.6-14.8) H Platelet Count 17 K/UL (150-450) L 33 K/UL (150-450) #L Mean Platelet Volume 10.2 FL (6.5-10.1) H FL (6.5-10.1) Neutrophils (%) (Auto) % (45.0-75.0) % (45.0-75.0) Lymphocytes (%) (Auto) % (20.0-45.0) % (20.0-45.0) Monocytes (%) (Auto) % (1.0-10.0) % (1.0-10.0) Eosinophils (%) (Auto) % (0.0-3.0) % (0.0-3.0) Basophils (%) (Auto) % (0.0-2.0) % (0.0-2.0) Differential Total Cells Counted 100 100 Neutrophils % (Manual) 8 % (45-75) L 10 % (45-75) L Lymphocytes % (Manual) 23 % (20-45) 16 % (20-45) L Monocytes % (Manual) 1 % (1-10) 4 % (1-10) Eosinophils % (Manual) 1 % (0-3) 1 % (0-3) Basophils % (Manual) 0 % (0-2) 0 % (0-2) Blast Cells % 66 % (0-0) *H 69 % (0-0) *H Band Neutrophils 1 % (0-8) 0 % (0-8) Nucleated Red Blood Cells 1 /100 WBC 2 /100 WBC Platelet Estimate Decreased L Decreased L Platelet Morphology Normal Normal Hypochromasia 1+ Anisocytosis 1+ Polychromasia 1+ Plan Problems: (1) Decubitus skin ulcer Assessment & Plan: Pt presented on admission with multiple Pressure Injuries, and contractures. Large Soft Mass noted to lateral R chest ,just inferior to Breast.Soft mass that uis violaceous and denuded. Unstageable Pressure injury R thoracic. Wound presents as partially opened DTPI( L)6cm x (W)8.5cm. 95% Soft eschar flap,5% dee. Marginal erythema along borders In addition scattered linear and purple area periwound. Full thickness stage 4 Sacral Pressure Injury(L)9.3cm x (W)8.7cm. Base of wound is 95% necrotic,but bone is palpable.Mild odor noted. No exudate noted. Non-blanching erythema periwound. Unstageable Pressure Injury R trochanter(L)3.5cm x (W)4.2cm. Base of wound is 90 % soft eschar, 10% pink epithelial. Edges adherent to base of wound .No erythema induration or fluctuance periwound. Unstageable Pressure injury R Ischium(L)3.5cm x (W)2.5cm. Dry eschar at base of wound, edges are adherent with surrounding pink epithelial. No erythema or induration periwound. DTPI L trochanter(L)4cm x (W)1cm. Stable dry eschar L Hallux(L)1.6cm x (W)2cm.NO erythema fluctuance or induration periwound. L 1st metatarsal TMA noted. Stable dry eschar distal/lateral L foot (L)1.5cm x (W)3cm. No erythema, induration or fluctuance periwound. DTPI noted to plantar L foot.(L)0.9cm x (W)0.9cm. Base of wound is fluctuant, purple with maroon borders. Unstageable Pressure injury L lateral Malleolus. Stable dry eschar noted.No erythema or induration periwound. L heel is boggy with non-blanching erythema. Unstageable Pressure injury R Hallux and plantar aspect(L)3.5cm x (W)3.4cm. Soft eschar at base of wound with marginal erythema along borders. R heel is boggy with Non-Blanching erythema. Unstageable Presure injury distal/Lateral R foot . Stable dry eschar noted . No erythema of fluctuance periwound. Tx.Plan: Cleanse Sacral Wound with Saline. Loosely pack with Therahoney impregnated Kerlix.Applpy Moisture Barrier Paste periwound. Cover with Optifoam drsg. Change Daily and prn. Cleanse Soft Mass R chest with Saline. Cover with Optifoam drsg. Change Daily and prn. Cleanse wounds R trochanter, R Ischium with Saline. Apply Moisture Barrier Paste.Cover with Optifoam drsg. Change every 3 days and prn. Apply Moisture Barrier to L trochanter. Cvoer with Optifoam drsg. Change every 3 days and prn. Apply Betadine to wounds R and L foot. Cover each wound with Optifoam drsg. Changee very 3 days and prn. Apply Cavilon Skin Barrier to both heels. Cover each heel with Optifoam drsg. Change every 7 days and prn. APM/ANA Mattress overlay. turn q2h nutritional optimization (2) Malnutrition Assessment & Plan: DAILY ESTIMATED NEEDS: Needs based on Critical care, wounds, 64kg 22-28 kcals/kg 4278-8619 total kcals 1.25-2 g protein/kg 80-128 g total protein 25-30 mL/kg 5098-3074 total fluid mLs NUTRITION DIAGNOSIS: Swallowing difficulty r/t respiratory status as evidenced by pt is trach and peg dep. CURRENT TF:NPO ENTERAL NUTRITION RECOMMENDATIONS: VITAL AF 1.2 @ 55ml/hr x24 hrs to provide 1320ml, 1584 kcal, 99g pro, 1071ml free H2O - Post PEJ placement, initiate Vital AF 1.2 @ 25ml/hr x 6hrs, advance 10ml q 4- 6 hrs as tolerated to goal. - Flush per MD - HOB over 30 degrees ADDITIONAL RECOMMENDATIONS: 1) Per SNF: 65 inches (5'5"); 141 lbs (64.1kg) 2) Wound care: add MEIR BID via GT w/ TF order 3) Monitor lytes, replete as needed . (3) Anemia Assessment & Plan: transfused trend labs no active bleeding stool study GI eval (4) UTI (urinary tract infection) (5) Tracheostomy dependence Assessment & Plan: Findings: The left hemidiaphragm is elevated. Atelectatic changes are present in the left lung base. There is minimal right basilar atelectasis. No definite infiltrates. There is a tracheostomy. Impression: Elevated left hemidiaphragm with considerable left basilar atelectasis. Less extensive right basilar atelectasis. Inspiration is suboptimal. Interim development of opacity of the left mid and lower lung. The left hemidiaphragm is obscured. Right lung is probably clear , although there is crowding of bronchovascular lung volumes. Tracheostomy remains. Impression: Since 11/01/2019, interim development of left mid and lower lung infiltrates versus edema and possibly pleural fluid Juan Houser Nov 09, 2019 13:29
--- NOTE | 2019-11-09 14:16 | Pulmonology Progress Note ---
Martha Chandler DIRECTOR IT 11/09/19 1416: Subjective ROS Limited/Unobtainable: Yes Constitutional: Reports: fever, fatigue, other Psychiatric: Reports: other Skin: Denies: rash Musculoskeletal: Reports: other Allergies: Coded Allergies: PENICILLINS (Verified Allergy, Unknown, 11/01/19) VANCOMYCIN (Verified Allergy, Unknown, 11/01/19) Uncoded Allergies: PENICI (Allergy, Unknown, 11/01/19) All Systems: reviewed and negative except above Subjective no signs of resp distress on current settings leuk with trend up-35.8; afebrile s/p EGD Objective Last 24 Hour Vital Signs Date Time Temp Pulse Resp B/P (MAP) Pulse Ox O2 Delivery O2 Flow Rate FiO2 11/09/19 12:00 90 11/09/19 12:00 98.6 92 18 112/51 (71) 100 11/09/19 12:00 40 11/09/19 12:00 Mechanical Ventilator 11/09/19 10:37 88 24 40 11/09/19 08:00 98.1 91 17 104/54 (71) 100 91 11/09/19 08:00 40 11/09/19 08:00 Mechanical Ventilator 11/09/19 07:40 90 11/09/19 07:14 90 22 40 11/09/19 06:55 70 14 98 11/09/19 04:00 40 11/09/19 04:00 98.1 95 24 126/62 (83) 100 11/09/19 04:00 Mechanical Ventilator 11/09/19 04:00 94 11/09/19 03:08 93 24 40 11/09/19 00:00 98.8 91 24 110/59 (76) 100 11/09/19 00:00 Mechanical Ventilator 11/09/19 00:00 92 11/08/19 23:37 94 21 40 11/08/19 20:01 94 24 40 11/08/19 20:00 40 11/08/19 20:00 Mechanical Ventilator 11/08/19 20:00 100.2 98 24 98/54 (69) 100 11/08/19 20:00 93 11/08/19 16:00 40 11/08/19 16:00 Mechanical Ventilator 11/08/19 16:00 99.7 98 18 96/51 (66) 100 11/08/19 16:00 96 11/08/19 15:20 94 23 40 Intake and Output 11/08/19 11/09/19 19:00 07:00 Intake Total 1650 ml 1618.75 ml Output Total 350 ml 1200 ml Balance 1300 ml 418.75 ml IV Total 1550 ml 1618.75 ml Other 100 ml Output Urine Total 350 ml 1200 ml Objective General Appearance: no apparent distress, other - bedridden, vent dependent female Lines, tubes and drains: peripheral HEENT: normocephalic, atraumatic, anicteric, status post trach - Shiley #6, secretions small amount, thin consistency, white color , Vent AC 400-40%-20 PEEP 5 Respiratory/Chest: no respiratory distress, few scattered rhonchi Cardiovascular/Chest: regular rhythm, RUE PICC intact Abdomen: non tender, soft, large dressing over prior G tube site Extremities: no edema, other - spastic LE Skin Exam: warm/dry, other - multiple DTI POA ( sacral, ankle foot, elbow) Neurologic: abnormal gait - bedridden, not responsive Musculoskeletal: atrophy - BLE Microbiology Date/Time Source Procedure Growth Status 11/07/19 12:20 Blood Blood Culture - Preliminary NO GROWTH AFTER 24 HOURS Resulted 11/07/19 12:20 Blood Blood Culture - Preliminary NO GROWTH AFTER 24 HOURS Resulted Laboratory Tests 11/09/19 03:40: White Blood Count 2.6#L, Red Blood Count 2.16L, Hemoglobin 6.0*L, Hematocrit 20.1L, Mean Corpuscular Volume 93, Mean Corpuscular Hemoglobin 27.8, Mean Corpuscular Hemoglobin Concent 29.8L, Red Cell Distribution Width 16.1H, Platelet Count 17L, Mean Platelet Volume 10.2H, Neutrophils (%) (Auto) , Lymphocytes (%) (Auto) , Monocytes (%) (Auto) , Eosinophils (%) (Auto) , Basophils (%) (Auto) , Differential Total Cells Counted 100, Neutrophils % ( Manual) 8L, Lymphocytes % (Manual) 23, Monocytes % (Manual) 1, Eosinophils % ( Manual) 1, Basophils % (Manual) 0, Blast Cells % 66*H, Band Neutrophils 1, Nucleated Red Blood Cells 1, Platelet Estimate DecreasedL, Platelet Morphology Normal, Hypochromasia 1+, Anisocytosis 1+ 11/09/19 08:15: White Blood Count 35.8#*H, Red Blood Count 3.14L, Hemoglobin 8.6#L, Hematocrit 28.8#L, Mean Corpuscular Volume 92, Mean Corpuscular Hemoglobin 27.2, Mean Corpuscular Hemoglobin Concent 29.7L, Red Cell Distribution Width 16.7H, Platelet Count 33#L, Mean Platelet Volume , Neutrophils (%) (Auto) , Lymphocytes (%) (Auto) , Monocytes (%) (Auto) , Eosinophils (%) (Auto) , Basophils (%) (Auto) , Differential Total Cells Counted 100, Neutrophils % ( Manual) 10L, Lymphocytes % (Manual) 16L, Monocytes % (Manual) 4, Eosinophils % ( Manual) 1, Basophils % (Manual) 0, Blast Cells % 69*H, Band Neutrophils 0, Nucleated Red Blood Cells 2, Platelet Estimate DecreasedL, Platelet Morphology Normal, Polychromasia 1+ Current Medications Medications (Trade) Dose Ordered Sig/Inna Route PRN Reason Start Time Stop Time Status Last Admin Dose Admin Acetaminophen (Tylenol) 650 mg Q4H PRN NG fever 100.4, mild pain 11/01/19 23:15 12/01/19 23:14 11/05/19 10:39 Acetaminophen (Tylenol) 650 mg Q4H PRN RECTAL Temp >100.5 11/08/19 21:30 12/08/19 21:29 Albuterol/ Ipratropium (Albuterol/ Ipratropium) 3 ml Q4H PRN HHN sob 11/07/19 10:15 11/12/19 10:14 Allopurinol (Zyloprim) 100 mg TID GT 11/02/19 09:00 12/02/19 08:59 11/08/19 08:42 Ascorbic Acid (Vitamin C) 500 mg DAILY GT 11/02/19 09:00 12/02/19 08:59 11/08/19 08:42 Carbidopa/Levodopa (Sinemet 25/100) 2 tab QID GT 11/02/19 09:00 12/02/19 08:59 11/08/19 08:42 Chlorhexidine Gluconate (Josefa-Hex 2%) 1 applic DAILY@2000 TOPIC 11/03/19 20:00 02/01/20 19:59 11/08/19 20:25 Daptomycin 500 mg/ Sodium Chloride 50 ml @ 100 mls/hr Q24H IV 11/08/19 16:00 11/15/19 15:59 11/08/19 16:46 Dextrose 1,000 ml @ 0 mls/hr Q24H PRN IV PN interrupted or unavailable 11/09/19 20:00 12/09/19 19:59 Dextrose (Dextrose 50%) 25 ml Q30M PRN IV Hypoglycemia 11/09/19 20:00 02/07/20 19:59 Dextrose (Dextrose 50%) 50 ml Q30M PRN IV Hypoglycemia 11/09/19 20:00 02/07/20 19:59 Dextrose/Sodium Chloride 1,000 ml @ 75 mls/hr [id number] IV 11/03/19 21:00 11/09/19 19:59 11/09/19 09:23 Docusate Sodium (Colace) 100 mg DAILY GT 11/02/19 09:00 12/02/19 08:59 11/08/19 08:41 Donepezil HCl (Aricept) 10 mg QHS GT 11/02/19 21:00 12/02/19 20:59 11/07/19 21:35 Entacapone (Comtan) 400 mg THREE TIMES A DAY ORAL 11/02/19 18:00 12/02/19 17:59 11/08/19 08:42 Fat Emulsion Intravenous 192 ml/Amino Acids/ Electrolytes/ Dextrose 1,872 ml @ 78 mls/hr Q24H IV 11/09/19 20:00 02/07/20 19:59 Insulin Aspart (NovoLOG) Q6HR SUBQ 11/06/19 12:00 02/04/20 11:59 Lansoprazole (Prevacid) 30 mg BID GT 11/02/19 09:00 12/02/19 08:59 11/08/19 08:41 Metoclopramide HCl (Reglan) 5 mg Q6H PRN IVP nausea or vomiting 11/01/19 23:15 12/01/19 23:14 11/02/19 12:51 Metronidazole 100 ml @ 100 mls/hr Q8HR IVPB 11/06/19 14:00 11/13/19 13:59 11/09/19 13:40 Multivitamins (Multivitamins W/ Minerals 15ml Liquid) 15 ml DAILY GT 11/02/19 09:00 12/02/19 08:59 11/08/19 08:42 Ondansetron HCl (Zofran) 4 mg Q4H PRN IVP Nausea & Vomiting 11/01/19 23:15 12/01/19 23:14 Pantoprazole (Protonix) 40 mg DAILY IVP 11/05/19 09:00 12/05/19 08:59 11/09/19 08:40 Polyethylene Glycol (Miralax) 17 gm DAILY PRN GT Constipation 11/02/19 08:30 12/02/19 07:59 Polymyxin B Sulfate [id number] units/Dextrose 550 ml @ 550 mls/hr EVERY 12 HOURS IV 11/05/19 10:00 11/12/19 09:59 11/09/19 08:39 Quetiapine Fumarate (SEROqueL) 50 mg QHS GT 11/02/19 21:00 12/17/19 20:59 11/07/19 21:36 Sennosides (Senokot) 8.6 mg QHS GT 11/02/19 21:00 12/02/19 20:59 11/07/19 21:32 Zinc Oxide (Desitin) 1 applic FOUR TIMES A DAY TOPIC 11/04/19 14:00 12/04/19 13:59 11/09/19 13:02 Assessment/Plan Assessment/Plan ASSESSMENT Chronic respiratory failure ventilator dependent with tracheostomy status Sepsis Bacteremia Probably pneumonia ? 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), s/p 2 u PRBC Pancytopenia Dysphagia, feeding by G-tube Advanced Parkinson's disease Severe protein calorie malnutrition Malfunctioning G tube ( inadvertently was removed), s/p EGD and removal Multiple DTI , POA Ovarian mass consistent with neoplasm Suspected COVID-19 infection Severe protein calorie malnutrition Functional quadriplegia PLAN OF CARE NAZARIO ventilator support, trach care, pulm toilet baseline ABG stable on current settings, keep as is and optimize as needed CXR 11/06 unchanged, get SCX GNB x 2 diff species repeat CXR in am BCX 10/31 05/28 Staph haemolyticus, likely contaminant BCX 11/01 05/28 MRSA BCX 11/03 NGTD UCX Klebsiella Carbapenem resistant BCX 11/05 ACB MDR, Staph DCX 11/06 NGTD abx as per ID recs -Dapto, Poly and Flagyl leuk rising, ECHO with pEF 55%, no discrete vegetation seen COVID 11/01 NGT, Venous Duplex BLE NGT, apply SCD, monitor HH with goal to keep Hgb >7, trend PLT severe pancytopenia likely 2 to AML leukocytosis 2 to sepsis and partially possibly due to malignancy IVF, replace lytes as needed, replace K today and check Mg monitor volumes asp precautions GT was inadvertently removed s/p replacement 11/03 by GI started TF still leaking plan replacement with GJ tube but cancelled due to leukocytosis s/p EGD 11/07, old G tube removed, unable to place a new one due to a large site , currently lipids and IVF strict aspir precautions protein supplement as per RD recs continue SNF meds as per primary supportive care bowel regimen wound care as per surgeon recs overall prognosis poor, given multiple comorbidities, with superimposed AML and ovarian mass, DNR/DNI status case discussed and evaluated by supervising physician Jerrell Wilson MD 11/09/19 1513: Subjective Allergies: Coded Allergies: PENICILLINS (Verified Allergy, Unknown, 11/01/19) VANCOMYCIN (Verified Allergy, Unknown, 11/01/19) Uncoded Allergies: PENICI (Allergy, Unknown, 11/01/19) Assessment/Plan Assessment/Plan Patient seen and examined with DIRECTOR IT. Agree with above A&P as it reflects our joint deliberations. Martha Chandler NP Nov 09, 2019 14:16 Jerrell Wilson MD Nov 09, 2019 15:13
--- NOTE | 2019-11-09 14:29 | NUR ---
CASE MANAGEMENT: REVIEW SI: ANEMIA . UTI . LARGE GASTROCUTANEOUS FISTULA T 98.6 HR 90 RR 17 BP 104/54 SAT 100% MECH VENT FIO2 40 WBC 35.8 H/H 8.6/28.8 CXR PENDING IS: TPN IV Q24HR DAPTOMYCIN IV Q24HR D5 NS IVF @ 75ML/HR POLYMYXIN B SULFATE IV Q12HR PROTONIX IV QD FLAGYL IV Q8HR G-J TUBE PLACEMENT PENDING ; PROCEDURE ABORTED 11/07 STEP DOWN UNIT STATUS DCP: PATIENT IS FROM [facility]
[2019-11-09 15:41] VITALS: BP 117/59
[2019-11-09] MEDS: DAPTOmycin 500 MG in NS 50 ML IV SCH (16:23)
--- NOTE | 2019-11-09 17:15 | Infectious Diseases Prog Note ---
Assessment/Plan Assessment/Plan ASSESSMENT AND PLAN: 1. 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 Prince - leukocytosis maybe secondary to AML blast crises/flare 2. Trach, vent respiratory failure. 3. Dysphagia, G-tube. 4. Anemia. 5. Thrombocytopenia. 6. Leukocytosis. 7. Malnutrition. 8. Ovarian mass with neoplasm. 9. Parkinson's. 10. Dementia. 11. Skin care per Surgery and protocol. 12. Allergies to penicillin, vancomycin. 13. Social history is negative. 14. Family history is noncontributory. 15. MAR was noted. 16. Case was discussed with RN. 17. Continue treatment per primary consultants. 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 Subjective Constitutional: Reports: fatigue, other - + trach and vent ; Denies: fever HEENT: Reports: congestion Respiratory: Reports: shortness of breath Cardiovascular: Denies: chest pain Gastrointestinal/Abdominal: Denies: nausea, vomiting, diarrhea Genitourinary: Reports: other - + dong Neurologic: Denies: headache Psychiatric: Reports: other - NnA Skin: Denies: rash Hematologic: Denies: bleeding Musculoskeletal: Reports: other - NA Allergies: Coded Allergies: PENICILLINS (Verified Allergy, Unknown, 11/01/19) VANCOMYCIN (Verified Allergy, Unknown, 11/01/19) Uncoded Allergies: PENICI (Allergy, Unknown, 11/01/19) Objective Vital Signs Last 24 Hour Vital Signs Date Time Temp Pulse Resp B/P (MAP) Pulse Ox O2 Delivery O2 Flow Rate FiO2 11/09/19 16:00 40 11/09/19 16:00 98 11/09/19 16:00 Mechanical Ventilator 11/09/19 15:41 98.7 99 19 117/59 (78) 100 11/09/19 15:06 98 23 40 11/09/19 12:00 90 11/09/19 12:00 98.6 92 18 112/51 (71) 100 11/09/19 12:00 40 11/09/19 12:00 Mechanical Ventilator 11/09/19 10:37 88 24 40 11/09/19 08:00 98.1 91 17 104/54 (71) 100 91 11/09/19 08:00 40 11/09/19 08:00 Mechanical Ventilator 11/09/19 07:40 90 11/09/19 07:14 90 22 40 11/09/19 06:55 70 14 98 11/09/19 04:00 40 11/09/19 04:00 98.1 95 24 126/62 (83) 100 11/09/19 04:00 Mechanical Ventilator 11/09/19 04:00 94 11/09/19 03:08 93 24 40 11/09/19 00:00 98.8 91 24 110/59 (76) 100 11/09/19 00:00 Mechanical Ventilator 11/09/19 00:00 92 11/08/19 23:37 94 21 40 11/08/19 20:01 94 24 40 11/08/19 20:00 40 11/08/19 20:00 Mechanical Ventilator 11/08/19 20:00 100.2 98 24 98/54 (69) 100 11/08/19 20:00 93 Height (Feet): 5 Height (Inches): 3.00 Weight (Pounds): 160 General Appearance: no acute distress HEENT: normocephalic, atraumatic, anicteric, no JVD, status post trach Respiratory/Chest: crackles/rales, rhonchi - bilaterally Cardiovascular: normal rate, regular rhythm, no gallop/murmur Abdomen: normal bowel sounds, soft, non tender, no organomegaly, non distended Genitourinary: other - + dong Extremities: no cyanosis Skin: no rash Neurologic/Psychiatric: 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 Interval placement of right PICC line tip to the mid SVC. 2. Hypoventilatory lungs. Bibasilar atelectasis/consolidations, similar to prior study. 3. Probable bilateral pleural effusions. Chest x-ray - 11/07/19- Procedure: XRAY Chest 1v Procedure: XRAY Chest 1v Reason for study: Shortness of breath. Comparison films: 11/05/2019. FINDINGS: Tracheostomy and right PICC line remain in place. There is limited inspiration with bibasilar densities unchanged. Cardiac and mediastinal silhouette are within normal limits. No large effusion seen The bony thorax appear unremarkable. IMPRESSION: NO SIGNIFICANT CHANGE COMPARED TO PREVIOUS EXAM. Microbiology Date/Time Source Procedure Growth Status 11/07/19 12:20 Blood Blood Culture - Preliminary NO GROWTH AFTER 24 HOURS Resulted 11/07/19 12: Blood Blood Culture - Preliminary NO GROWTH AFTER 24 HOURS Resulted Laboratory Tests Test 11/09/19 03:40 11/09/19 08:15 White Blood Count 2.6 K/UL (4.8-10.8) #L 35.8 K/UL (4.8-10.8) #*H Red Blood Count 2.16 M/UL (4.20-5.40) L 3.14 M/UL (4.20-5.40) L Hemoglobin 6.0 G/DL (12.0-16.0) *L 8.6 G/DL (12.0-16.0) #L Hematocrit 20.1 % (37.0-47.0) L 28.8 % (37.0-47.0) #L Mean Corpuscular Volume 93 FL (80-99) 92 FL (80-99) Mean Corpuscular Hemoglobin 27.8 PG (27.0-31.0) 27.2 PG (27.0-31.0) Mean Corpuscular Hemoglobin Concent 29.8 G/DL (32.0-36.0) L 29.7 G/DL (32.0-36.0) L Red Cell Distribution Width 16.1 % (11.6-14.8) H 16.7 % (11.6-14.8) H Platelet Count 17 K/UL (150-450) L 33 K/UL (150-450) #L Mean Platelet Volume 10.2 FL (6.5-10.1) H FL (6.5-10.1) Neutrophils (%) (Auto) % (45.0-75.0) % (45.0-75.0) Lymphocytes (%) (Auto) % (20.0-45.0) % (20.0-45.0) Monocytes (%) (Auto) % (1.0-10.0) % (1.0-10.0) Eosinophils (%) (Auto) % (0.0-3.0) % (0.0-3.0) Basophils (%) (Auto) % (0.0-2.0) % (0.0-2.0) Differential Total Cells Counted 100 100 Neutrophils % (Manual) 8 % (45-75) L 10 % (45-75) L Lymphocytes % (Manual) 23 % (20-45) 16 % (20-45) L Monocytes % (Manual) 1 % (1-10) 4 % (1-10) Eosinophils % (Manual) 1 % (0-3) 1 % (0-3) Basophils % (Manual) 0 % (0-2) 0 % (0-2) Blast Cells % 66 % (0-0) *H 69 % (0-0) *H Band Neutrophils 1 % (0-8) 0 % (0-8) Nucleated Red Blood Cells 1 /100 WBC 2 /100 WBC Platelet Estimate Decreased L Decreased L Platelet Morphology Normal Normal Hypochromasia 1+ Anisocytosis 1+ Polychromasia 1+ Current Medications Medications (Trade) Dose Ordered Sig/Inna Route PRN Reason Start Time Stop Time Status Last Admin Dose Admin Acetaminophen (Tylenol) 650 mg Q4H PRN NG fever 100.4, mild pain 11/01/19 23:15 12/01/19 23:14 11/05/19 10:39 Acetaminophen (Tylenol) 650 mg Q4H PRN RECTAL Temp >100.5 11/08/19 21:30 12/08/19 21:29 Albuterol/ Ipratropium (Albuterol/ Ipratropium) 3 ml Q4H PRN HHN sob 11/07/19 10:15 11/12/19 10:14 Allopurinol (Zyloprim) 100 mg TID GT 11/02/19 09:00 12/02/19 08:59 11/08/19 08:42 Ascorbic Acid (Vitamin C) 500 mg DAILY GT 11/02/19 09:00 12/02/19 08:59 11/08/19 08:42 Carbidopa/Levodopa (Sinemet 25/100) 2 tab QID GT 11/02/19 09:00 12/02/19 08:59 11/08/19 08:42 Chlorhexidine Gluconate (Josefa-Hex 2%) 1 applic DAILY@2000 TOPIC 11/03/19 20:00 02/01/20 19:59 11/08/19 20:25 Daptomycin 500 mg/ Sodium Chloride 50 ml @ 100 mls/hr Q24H IV 11/08/19 16:00 11/15/19 15:59 11/09/19 16:23 Dextrose 1,000 ml @ 0 mls/hr Q24H PRN IV PN interrupted or unavailable 11/09/19 20:00 12/09/19 19:59 Dextrose (Dextrose 50%) 25 ml Q30M PRN IV Hypoglycemia 11/09/19 20:00 02/07/20 19:59 Dextrose (Dextrose 50%) 50 ml Q30M PRN IV Hypoglycemia 11/09/19 20:00 02/07/20 19:59 Dextrose/Sodium Chloride 1,000 ml @ 75 mls/hr [id number] IV 11/03/19 21:00 11/09/19 19:59 11/09/19 09:23 Docusate Sodium (Colace) 100 mg DAILY GT 11/02/19 09:00 12/02/19 08:59 11/08/19 08:41 Donepezil HCl (Aricept) 10 mg QHS GT 11/02/19 21:00 12/02/19 20:59 11/07/19 21:35 Entacapone (Comtan) 400 mg THREE TIMES A DAY ORAL 11/02/19 18:00 12/02/19 17:59 11/08/19 08:42 Fat Emulsion Intravenous 192 ml/Amino Acids/ Electrolytes/ Dextrose 1,872 ml @ 78 mls/hr Q24H IV 11/09/19 20:00 02/07/20 19:59 Insulin Aspart (NovoLOG) Q6HR SUBQ 11/06/19 12:00 02/04/20 11:59 Lansoprazole (Prevacid) 30 mg BID GT 11/02/19 09:00 12/02/19 08:59 11/08/19 08:41 Metoclopramide HCl (Reglan) 5 mg Q6H PRN IVP nausea or vomiting 11/01/19 23:15 12/01/19 23:14 11/02/19 12:51 Metronidazole 100 ml @ 100 mls/hr Q8HR IVPB 11/06/19 14:00 11/13/19 13:59 11/09/19 13:40 Multivitamins (Multivitamins W/ Minerals 15ml Liquid) 15 ml DAILY GT 11/02/19 09:00 12/02/19 08:59 11/08/19 08:42 Ondansetron HCl (Zofran) 4 mg Q4H PRN IVP Nausea & Vomiting 11/01/19 23:15 12/01/19 23:14 Pantoprazole (Protonix) 40 mg DAILY IVP 11/05/19 09:00 12/05/19 08:59 11/09/19 08:40 Polyethylene Glycol (Miralax) 17 gm DAILY PRN GT Constipation 11/02/19 08:30 12/02/19 07:59 Polymyxin B Sulfate 272842 units/Dextrose 550 ml @ 550 mls/hr EVERY 12 HOURS IV 11/05/19 10:00 11/12/19 09:59 11/09/19 08:39 Quetiapine Fumarate (SEROqueL) 50 mg QHS GT 11/02/19 21:00 12/17/19 20:59 11/07/19 21:36 Sennosides (Senokot) 8.6 mg QHS GT 11/02/19 21:00 12/02/19 20:59 11/07/19 21:32 Zinc Oxide (Desitin) 1 applic FOUR TIMES A DAY TOPIC 11/04/19 14:00 12/04/19 13:59 11/09/19 13:02 González Yadav MD Nov 09, 2019 17:15
--- NOTE | 2019-11-09 19:20 | NUR ---
NURSE NOTES: Contacted and informed Dr. Reeves that dietitian, Azeb, recommends to begin TPN at 18 ml/hr, advance TPN 10 ml/hr q4-6hr as tolerated until goal of 78 ml/hr. Dr. Reeves acknowledged and stated, "ok." Noted. Endorsed accordingly.
--- NOTE | 2019-11-09 19:30 | NUR ---
HAND-OFF: Report given to SRIKANTH Plaza.
--- NOTE | 2019-11-09 19:31 | NUR ---
NURSE NOTES: Received report from Emre Stein RN. Patient is obtunded, vss other than Temp of 100.4F, no acute distress, and on monitor technician. Patient is clean with no signs of SOB. Trach to vent Shiley 6, AC 20, TV 400, FIo2 40%, and a PEEP of 5. Patient has old G-tube site with bandage dry and intact. Patients wounds observed and noted. Right upper arm PICC line is patient and intact with no signs of infection. Bed is at its lowest position, locked; call light in reach, and x3 bed rails are up. Will continue to monitor and administer medication for her fever.
--- NOTE | 2019-11-09 19:46 | Internal Med Progress Note ---
Subjective Date of Service: Nov 09, 2019 Physician Name Fredrick Prince Attending Physician Fredrick Prince MD Current Medications Medications (Trade) Dose Ordered Sig/Inna Route PRN Reason Start Time Stop Time Status Last Admin Dose Admin Acetaminophen (Tylenol) 650 mg Q4H PRN NG fever 100.4, mild pain 11/01/19 23:15 12/01/19 23:14 11/05/19 10:39 Acetaminophen (Tylenol) 650 mg Q4H PRN RECTAL Temp >100.5 11/08/19 21:30 12/08/19 21:29 Albuterol/ Ipratropium (Albuterol/ Ipratropium) 3 ml Q4H PRN HHN sob 11/07/19 10:15 11/12/19 10:14 Allopurinol (Zyloprim) 100 mg TID GT 11/02/19 09:00 12/02/19 08:59 11/08/19 08:42 Ascorbic Acid (Vitamin C) 500 mg DAILY GT 11/02/19 09:00 12/02/19 08:59 11/08/19 08:42 Carbidopa/Levodopa (Sinemet 25/100) 2 tab QID GT 11/02/19 09:00 12/02/19 08:59 11/08/19 08:42 Chlorhexidine Gluconate (Josefa-Hex 2%) 1 applic DAILY@2000 TOPIC 11/03/19 20:00 02/01/20 19:59 11/08/19 20:25 Daptomycin 500 mg/ Sodium Chloride 50 ml @ 100 mls/hr Q24H IV 11/08/19 16:00 11/15/19 15:59 11/09/19 16:23 Dextrose 1,000 ml @ 0 mls/hr Q24H PRN IV PN interrupted or unavailable 11/09/19 20:00 12/09/19 19:59 Dextrose (Dextrose 50%) 25 ml Q30M PRN IV Hypoglycemia 11/09/19 20:00 02/07/20 19:59 Dextrose (Dextrose 50%) 50 ml Q30M PRN IV Hypoglycemia 11/09/19 20:00 02/07/20 19:59 Dextrose/Sodium Chloride 1,000 ml @ 75 mls/hr [id number] IV 11/03/19 21:00 11/09/19 19:59 11/09/19 09:23 Docusate Sodium (Colace) 100 mg DAILY GT 11/02/19 09:00 12/02/19 08:59 11/08/19 08:41 Donepezil HCl (Aricept) 10 mg QHS GT 11/02/19 21:00 12/02/19 20:59 11/07/19 21:35 Entacapone (Comtan) 400 mg THREE TIMES A DAY ORAL 11/02/19 18:00 12/02/19 17:59 11/08/19 08:42 Fat Emulsion Intravenous 192 ml/Amino Acids/ Electrolytes/ Dextrose 1,872 ml @ 78 mls/hr Q24H IV 11/09/19 20:00 02/07/20 19:59 Insulin Aspart (NovoLOG) Q6HR SUBQ 11/06/19 12:00 02/04/20 11:59 Lansoprazole (Prevacid) 30 mg BID GT 11/02/19 09:00 12/02/19 08:59 11/08/19 08:41 Metoclopramide HCl (Reglan) 5 mg Q6H PRN IVP nausea or vomiting 11/01/19 23:15 12/01/19 23:14 11/02/19 12:51 Metronidazole 100 ml @ 100 mls/hr Q8HR IVPB 11/06/19 14:00 11/13/19 13:59 11/09/19 13:40 Multivitamins (Multivitamins W/ Minerals 15ml Liquid) 15 ml DAILY GT 11/02/19 09:00 12/02/19 08:59 11/08/19 08:42 Ondansetron HCl (Zofran) 4 mg Q4H PRN IVP Nausea & Vomiting 11/01/19 23:15 12/01/19 23:14 Pantoprazole (Protonix) 40 mg DAILY IVP 11/05/19 09:00 12/05/19 08:59 11/09/19 08:40 Polyethylene Glycol (Miralax) 17 gm DAILY PRN GT Constipation 11/02/19 08:30 12/02/19 07:59 Polymyxin B Sulfate 702124 units/Dextrose 550 ml @ 550 mls/hr EVERY 12 HOURS IV 11/05/19 10:00 11/12/19 09:59 11/09/19 08:39 Quetiapine Fumarate (SEROqueL) 50 mg QHS GT 11/02/19 21:00 12/17/19 20:59 11/07/19 21:36 Sennosides (Senokot) 8.6 mg QHS GT 11/02/19 21:00 12/02/19 20:59 11/07/19 21:32 Zinc Oxide (Desitin) 1 applic FOUR TIMES A DAY TOPIC 11/04/19 14:00 12/04/19 13:59 11/09/19 17:44 Allergies: Coded Allergies: PENICILLINS (Verified Allergy, Unknown, 11/01/19) VANCOMYCIN (Verified Allergy, Unknown, 11/01/19) Uncoded Allergies: PENICI (Allergy, Unknown, 11/01/19) ROS Limited/Unobtainable: Yes All Systems: reviewed and negative except above Subjective non verbal, chronic trach GJ tube failed due to big whole need TPN Objective Last Vital Signs Date Time Temp Pulse Resp B/P (MAP) Pulse Ox O2 Delivery O2 Flow Rate FiO2 11/09/19 16:00 40 11/09/19 16:00 98 11/09/19 16:00 Mechanical Ventilator 11/09/19 15:41 98.7 19 117/59 (78) 100 General Appearance: no apparent distress EENT: other - intubated orally Cardiovascular: normal rate, regular rhythm, systolic murmur Respiratory/Chest: rhonchi - bilaterally Abdomen: normal bowel sounds, non tender, soft Extremities: other - +contracture Neurologic: unresponsiveness, aphasia Skin: warm/dry, other - +pressure sores Laboratory Tests Test 11/09/19 03:40 11/09/19 08:15 White Blood Count 2.6 K/UL (4.8-10.8) #L 35.8 K/UL (4.8-10.8) #*H Red Blood Count 2.16 M/UL (4.20-5.40) L 3.14 M/UL (4.20-5.40) L Hemoglobin 6.0 G/DL (12.0-16.0) *L 8.6 G/DL (12.0-16.0) #L Hematocrit 20.1 % (37.0-47.0) L 28.8 % (37.0-47.0) #L Mean Corpuscular Volume 93 FL (80-99) 92 FL (80-99) Mean Corpuscular Hemoglobin 27.8 PG (27.0-31.0) 27.2 PG (27.0-31.0) Mean Corpuscular Hemoglobin Concent 29.8 G/DL (32.0-36.0) L 29.7 G/DL (32.0-36.0) L Red Cell Distribution Width 16.1 % (11.6-14.8) H 16.7 % (11.6-14.8) H Platelet Count 17 K/UL (150-450) L 33 K/UL (150-450) #L Mean Platelet Volume 10.2 FL (6.5-10.1) H FL (6.5-10.1) Neutrophils (%) (Auto) % (45.0-75.0) % (45.0-75.0) Lymphocytes (%) (Auto) % (20.0-45.0) % (20.0-45.0) Monocytes (%) (Auto) % (1.0-10.0) % (1.0-10.0) Eosinophils (%) (Auto) % (0.0-3.0) % (0.0-3.0) Basophils (%) (Auto) % (0.0-2.0) % (0.0-2.0) Differential Total Cells Counted 100 100 Neutrophils % (Manual) 8 % (45-75) L 10 % (45-75) L Lymphocytes % (Manual) 23 % (20-45) 16 % (20-45) L Monocytes % (Manual) 1 % (1-10) 4 % (1-10) Eosinophils % (Manual) 1 % (0-3) 1 % (0-3) Basophils % (Manual) 0 % (0-2) 0 % (0-2) Blast Cells % 66 % (0-0) *H 69 % (0-0) *H Band Neutrophils 1 % (0-8) 0 % (0-8) Nucleated Red Blood Cells 1 /100 WBC 2 /100 WBC Platelet Estimate Decreased L Decreased L Platelet Morphology Normal Normal Hypochromasia 1+ Anisocytosis 1+ Polychromasia 1+ Microbiology Date/Time Source Procedure Growth Status 11/07/19 12:20 Blood Blood Culture - Preliminary NO GROWTH AFTER 24 HOURS Resulted 11/07/19 12:20 Blood Blood Culture - Preliminary NO GROWTH AFTER 24 HOURS Resulted Intake and Output 11/08/19 11/09/19 19:00 07:00 Intake Total 1650 ml 1618.75 ml Output Total 350 ml 1200 ml Balance 1300 ml 418.75 ml IV Total 1550 ml 1618.75 ml Other 100 ml Output Urine Total 350 ml 1200 ml Objective unable to place J tube . 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 d/w GI PGE/J in few week unable to put PEG J tube due to large whole KCL IV replete prn s/p Mg sulfate IV 2 gram flagyl IV leukocytosis could be AML flare s/p 3 units PRBC tx so far IV abx wound care f/u cx ID f/u electrolyte replete as needed enteral feeding ventilator pulm HHN dong pain control DNAR status Fredrick Prince MD Internal Medicine [phone] time spent today over 35 minutes stamp time on this note may NOT be the actual encounter time. Fredrick Prince MD Nov 09, 2019 19:45
[2019-11-09 20:00] VITALS: BP 110/57
[2019-11-09] MEDS ORDERED: Dextrose 10% 1,000 ML IV PRN (20:00)
--- NOTE | 2019-11-09 20:05 | NUR ---
NURSE NOTES: TPN initiated at 18mls/hr. TPN order confided, filter in place, and patients blood sugar is 125. IV site is intact with no signs of infection or leakage. All other dextrose products have been disconnected from patient. Will monitor patient. Addendum: 11/09/19 at 2252 by Bola Braun RN NURSE NOTES: TPN initiated at 18mls/hr. TPN order confirmed, IV filter in place, and patients blood sugar is 125. IV site is intact with no signs of infection or leakage. All other dextrose products have been disconnected from patient. Will monitor patient.
[2019-11-09] MEDS: Dyna-Hex 2% Top Sol 2oz TOPIC SCH (20:19)
[2019-11-09] MEDS: FAT EMULSION 20% IV SCH (20:20)
[2019-11-09] MEDS: TPN IV SCH (20:20)
[2019-11-09] MEDS: Donepezil 10mg tab GT SCH (21:00)
[2019-11-09] MEDS ORDERED: Fat Emulsion Iv 20% 250 ML IV SCH (21:00)
[2019-11-09] MEDS: Sennosides 8.6mg tab GT SCH (21:00)
[2019-11-09] MEDS: Acetaminophen 650 MG SUPP RECTAL PRN (21:33)
[2019-11-10] VITALS: BP 118/62
[2019-11-10] MEDS: NovoLOG Insulin Flexpen SUBQ SCH ×5 (00:03→23:40)
--- NOTE | 2019-11-10 00:35 | NUR ---
NURSE NOTES: Patient in bed with no acute distress. Patient is afebrile at this time as well.
--- NOTE | 2019-11-10 03:27 | NUR ---
NURSE NOTES: Bed bath given and all bandages replaced. Patient's body rash with scattered dry red spots is mainly on her left side of her body. Patient's abdomen is large and firm. Patient tolerated bed bath well. Will continue to monitor.
[2019-11-10 04:00] VITALS: BP 101/61
[2019-11-10 04:36] LABS: HEMATOCRIT 31.6 % (37.0-47.0); HEMOGLOBIN 9.6 G/DL (12.0-16.0); MEAN CORPUSCULAR VOLUME 93 FL (80-99); PLATELET COUNT 30 K/UL (150-450); RED BLOOD COUNT 3.39 M/UL (4.20-5.40); RED CELL DISTRIBUTION WIDTH 16.4 % (11.6-14.8)
[2019-11-10 04:54] LABS: WHITE BLOOD COUNT 58.2 K/UL (4.8-10.8)
[2019-11-10 05:18] LABS: ALANINE AMINOTRANSFERASE 7 U/L (12-78); ALBUMIN 1.7 G/DL (3.4-5.0); ALBUMIN/GLOBULIN RATIO 0.5 (1.0-2.7); ALKALINE PHOSPHATASE 47 U/L (46-116); ANION GAP 10 mmol/L (5-15); ASPARTATE AMINO TRANSFERASE 37 U/L (15-37); BILIRUBIN,TOTAL 0.4 MG/DL (0.2-1.0); BLOOD UREA NITROGEN 5 mg/dL (7-18); CALCIUM 7.8 MG/DL (8.5-10.1); CARBON DIOXIDE 21 MMOL/L (21-32); CHLORIDE 108 MMOL/L (98-107); CREATININE 0.8 MG/DL (0.55-1.30); SODIUM 139 MMOL/L (136-145)
--- NOTE | 2019-11-10 06:53 | NUR ---
NURSE NOTES: Left a message for Dr. Yadav regarding an increased WBC of 58.2. Waiting for call back. Called Dr. Prince regarding potassium of 3.0. Waiting for call back.
--- NOTE | 2019-11-10 07:20 | NUR ---
NURSE NOTES:RECEIVED BED SIDE REPORT FROM ADRIEL. RECEIVED PT WITH HOB ELEVATED 45 DEGREE OBTUNDED .TRACH TO VENT DEPENDENT.PT TOLERATING WELL CURRENTS VENT SETTINGS. PT IS DNR AND DNI STATUS. RENDERED TRACH CARE & ORAL HYGIENE,MOD AMT OF WITH TICK SECRETIONS NOTED.PT WITH PICK LINE DOUBLE LUMEN IN PLACE AND INTACT ON RT UA,RECEIVING TPN @ 48CC/HRS INFUSING WELL. FULL BODY ASSESSMENT DONE.PT REPOSITIONED Q2HRS TO PROVIDE COMFORT AND TO PREVENT FURTHER SKIN BREAK DOWN.NO ACUTE DISTRESS NOTED AT THIS TIME. WILL CONT TO MONITOR.
--- NOTE | 2019-11-10 07:23 | NUR ---
HAND-OFF: Report given to SRIKANTH Anglin.
[2019-11-10 08:00] VITALS: BP 109/57
[2019-11-10] MEDS: Allopurinol 100mg Tab GT SCH ×3 (09:00→17:59)
[2019-11-10] MEDS: Docusate 100mg/10ml Liq GT SCH (09:00)
[2019-11-10] MEDS: Ascorbic Acid 500mg tab GT SCH (09:00)
[2019-11-10] MEDS: Levodopa/Carbidopa 25/100 tab GT SCH ×4 (09:00→20:07)
[2019-11-10] MEDS: Entacapone 200mg tab ORAL SCH ×3 (09:00→17:59)
[2019-11-10] MEDS: Multivitamins W/Minerals 15 ML UDC GT SCH (09:00)
[2019-11-10] MEDS: Polymyxin B Sulfate 500,000 UNITS in D5W 500ml 550 ML IV SCH ×2 (09:40→21:30)
[2019-11-10] MEDS: Pantoprazole Inj IVP SCH (09:40)
[2019-11-10] MEDS: Desitin Rash Paste TOPIC SCH ×4 (09:45→19:51)
--- NOTE | 2019-11-10 10:10 | Pulmonology Progress Note ---
Subjective ROS Limited/Unobtainable: Yes Constitutional: Reports: fatigue, other - + trach and vent ; Denies: fever Gastrointestinal/Abdominal: Denies: nausea, vomiting, diarrhea Psychiatric: Reports: other - NnA Skin: Denies: rash Musculoskeletal: Reports: other - NA Allergies: Coded Allergies: PENICILLINS (Verified Allergy, Unknown, 11/01/19) VANCOMYCIN (Verified Allergy, Unknown, 11/01/19) Uncoded Allergies: PENICI (Allergy, Unknown, 11/01/19) All Systems: reviewed and negative except above Subjective no signs of resp distress on current settings leuk with trend up-58 afebrile s/p EGD , removal of G tube 10/07 now on TPN since 11/08 Objective Last 24 Hour Vital Signs Date Time Temp Pulse Resp B/P (MAP) Pulse Ox O2 Delivery O2 Flow Rate FiO2 11/10/19 08:00 99.2 91 20 109/57 (74) 100 11/10/19 08:00 40 11/10/19 08:00 Mechanical Ventilator 11/10/19 07:23 90 22 40 11/10/19 04:00 40 11/10/19 04:00 Mechanical Ventilator 11/10/19 04:00 97.7 92 18 101/61 (74) 100 11/10/19 03:30 91 11/10/19 02:45 83 24 40 11/10/19 00:00 Mechanical Ventilator 11/10/19 00:00 87 11/10/19 00:00 98.1 88 23 118/62 (80) 100 11/09/19 23:00 91 24 40 11/09/19 22:03 99.1 11/09/19 20:00 40 11/09/19 20:00 Mechanical Ventilator 11/09/19 20:00 100.2 102 21 110/57 (74) 99 11/09/19 19:40 100 23 40 11/09/19 19:03 98 11/09/19 16:00 40 11/09/19 16:00 98 11/09/19 16:00 Mechanical Ventilator 11/09/19 15:41 98.7 99 19 117/59 (78) 100 11/09/19 15:06 98 23 40 11/09/19 12:00 90 11/09/19 12:00 98.6 92 18 112/51 (71) 100 11/09/19 12:00 40 11/09/19 12:00 Mechanical Ventilator 11/09/19 10:37 88 24 40 Intake and Output 11/09/19 11/10/19 19:00 07:00 Intake Total 850 ml 1013.70 ml Output Total 300 ml 1100 ml Balance 550 ml -86.30 ml IV Total 850 ml 1013.70 ml Output Urine Total 300 ml 1100 ml # Voids 1 Objective General Appearance: no apparent distress, bedridden, vent dependent chronically ill appearing female Lines, tubes and drains: peripheral HEENT: normocephalic, atraumatic, anicteric, status post trach - Shiley #6, secretions small amount, thin consistency, white color , Vent AC 400-40%-20 PEEP 5 Respiratory/Chest: no respiratory distress, few scattered rhonchi Cardiovascular/Chest: regular rhythm, RUE PICC intact Abdomen: non tender, soft, large dressing over prior G tube site Extremities: no edema, spastic LE Skin Exam: warm/dry, multiple DTI POA ( sacral, ankle foot, elbow) Neurologic: abnormal gait : bedridden, not responsive Musculoskeletal: atrophy - BLE Microbiology Date/Time Source Procedure Growth Status 11/07/19 12:20 Blood Blood Culture - Preliminary NO GROWTH AFTER 48 HOURS Resulted 11/07/19 12:20 Blood Blood Culture - Preliminary NO GROWTH AFTER 48 HOURS Resulted Laboratory Tests 11/10/19 03:20: White Blood Count 58.2#*H, Red Blood Count 3.39L, Hemoglobin 9.6L, Hematocrit 31.6L, Mean Corpuscular Volume 93, Mean Corpuscular Hemoglobin 28.2, Mean Corpuscular Hemoglobin Concent 30.2L, Red Cell Distribution Width 16.4H, Platelet Count 30L, Mean Platelet Volume 13.5H, Neutrophils (%) (Auto) , Lymphocytes (%) (Auto) , Monocytes (%) (Auto) , Eosinophils (%) (Auto) , Basophils (%) (Auto) , Differential Total Cells Counted 100, Neutrophils % ( Manual) 5L, Lymphocytes % (Manual) 15L, Monocytes % (Manual) 6, Eosinophils % ( Manual) 1, Basophils % (Manual) 0, Blast Cells % 73*H, Band Neutrophils 0, Platelet Estimate DecreasedL, Platelet Morphology Normal, Hypochromasia 1+, Anisocytosis 1+, Sodium Level 139, Potassium Level 3.0L, Chloride Level 108H, Carbon Dioxide Level 21, Anion Gap 10, Blood Urea Nitrogen 5L, Creatinine 0.8, Estimat Glomerular Filtration Rate > 60, Glucose Level 131H, Calcium Level 7.8L , Total Bilirubin 0.4, Aspartate Amino Transf (AST/SGOT) 37, Alanine Aminotransferase (ALT/SGPT) 7L, Alkaline Phosphatase 47, Total Protein 5.4L, Albumin 1.7L, Globulin 3.7, Albumin/Globulin Ratio 0.5L Current Medications Medications (Trade) Dose Ordered Sig/Inna Route PRN Reason Start Time Stop Time Status Last Admin Dose Admin Acetaminophen (Tylenol) 650 mg Q4H PRN GT fever 100.4, mild pain 11/10/19 10:00 12/01/19 23:14 Acetaminophen (Tylenol) 650 mg Q4H PRN RECTAL Temp >100.5 11/08/19 21:30 12/08/19 21:29 11/09/19 21:33 Albuterol/ Ipratropium (Albuterol/ Ipratropium) 3 ml Q4H PRN HHN sob 11/07/19 10:15 11/12/19 10:14 Allopurinol (Zyloprim) 100 mg TID GT 11/02/19 09:00 12/02/19 08:59 11/08/19 08:42 Ascorbic Acid (Vitamin C) 500 mg DAILY GT 11/02/19 09:00 12/02/19 08:59 11/08/19 08:42 Carbidopa/Levodopa (Sinemet 25/100) 2 tab QID GT 11/02/19 09:00 12/02/19 08:59 11/08/19 08:42 Chlorhexidine Gluconate (Josefa-Hex 2%) 1 applic DAILY@2000 TOPIC 11/03/19 20:00 02/01/20 19:59 11/09/19 20:19 Daptomycin 500 mg/ Sodium Chloride 50 ml @ 100 mls/hr Q24H IV 11/08/19 16:00 11/15/19 15:59 11/09/19 16:23 Dextrose 1,000 ml @ 0 mls/hr Q24H PRN IV PN interrupted or unavailable 11/09/19 20:00 12/09/19 19:59 Dextrose (Dextrose 50%) 25 ml Q30M PRN IV Hypoglycemia 6/17/20 20:00 02/07/20 19:59 Dextrose (Dextrose 50%) 50 ml Q30M PRN IV Hypoglycemia 11/09/19 20:00 02/07/20 19:59 Docusate Sodium (Colace) 100 mg DAILY GT 11/02/19 09:00 12/02/19 08:59 11/08/19 08:41 Donepezil HCl (Aricept) 10 mg QHS GT 11/02/19 21:00 12/02/19 20:59 11/07/19 21:35 Entacapone (Comtan) 400 mg THREE TIMES A DAY ORAL 11/10/19 13:00 12/02/19 17:59 Fat Emulsion Intravenous 192 ml/Amino Acids/ Electrolytes/ Dextrose 1,872 ml @ 78 mls/hr Q24H IV 11/09/19 20:00 02/07/20 19:59 11/09/19 20:20 Insulin Aspart (NovoLOG) Q6HR SUBQ 11/06/19 12:00 02/04/20 11:59 11/10/19 00:03 Lansoprazole (Prevacid) 30 mg BID GT 11/02/19 09:00 12/02/19 08:59 11/08/19 08:41 Metoclopramide HCl (Reglan) 5 mg Q6H PRN IVP nausea or vomiting 11/01/19 23:15 12/01/19 23:14 11/02/19 12:51 Metronidazole 100 ml @ 100 mls/hr Q8HR IVPB 11/06/19 14:00 11/13/19 13:59 11/10/19 05:02 Multivitamins (Multivitamins W/ Minerals 15ml Liquid) 15 ml DAILY GT 11/02/19 09:00 12/02/19 08:59 11/08/19 08:42 Ondansetron HCl (Zofran) 4 mg Q4H PRN IVP Nausea & Vomiting 11/01/19 23:15 12/01/19 23:14 Pantoprazole (Protonix) 40 mg DAILY IVP 11/05/19 09:00 12/05/19 08:59 11/10/19 09:40 Polyethylene Glycol (Miralax) 17 gm DAILY PRN GT Constipation 11/02/19 08:30 12/02/19 07:59 Polymyxin B Sulfate 917191 units/Dextrose 550 ml @ 550 mls/hr EVERY 12 HOURS IV 11/05/19 10:00 11/12/19 09:59 11/10/19 09:40 Quetiapine Fumarate (SEROqueL) 50 mg QHS GT 11/02/19 21:00 12/17/19 20:59 11/07/19 21:36 Sennosides (Senokot) 8.6 mg QHS GT 11/02/19 21:00 12/02/19 20:59 11/07/19 21:32 Zinc Oxide (Desitin) 1 applic FOUR TIMES A DAY TOPIC 11/04/19 14:00 12/04/19 13:59 11/10/19 09:45 Assessment/Plan Assessment/Plan ASSESSMENT Chronic respiratory failure ventilator dependent with tracheostomy status Sepsis Bacteremia Pneumonia, possible aspiration UTI with Klebsiella 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), s/p 2 u PRBC Pancytopenia Dysphagia, feeding by G-tube Advanced Parkinson's disease Severe protein calorie malnutrition Malfunctioning G tube ( inadvertently was removed), s/p EGD and removal of G tube Multiple DTI , POA Ovarian mass consistent with neoplasm ANL Suspected COVID-19 infection ruled out Severe protein calorie malnutrition Functional quadriplegia PLAN OF CARE NAZARIO ventilator support, trach care, pulm toilet baseline ABG stable on current settings, keep as is and optimize as needed CXR 11/06 unchanged, SCX-Providencia Klebsiella CRE CXR this am pending BCX 10/31 05/28 Staph haemolyticus, likely contaminant BCX 11/01 05/28 MRSA BCX 11/03 NGTD UCX Klebsiella CRE BCX 11/05 ACB MDR, Staph BCX 11/06 NGTD abx as per ID recs -Dapto, Poly and Flagyl leuk rising, ECHO with pEF 55%, no discrete vegetation seen COVID 11/01 NGT, Venous Duplex BLE NGT, apply SCD, monitor HH with goal to keep Hgb >7, trend PLT severe pancytopenia likely 2 to AML leukocytosis 2 to sepsis and partially possibly due to malignancy/AML and ovarian Ca IVF, replace lytes as needed, replace K today and check Mg monitor volumes asp precautions GT was inadvertently removed s/p replacement 11/03 by GI started TF still leaking plan replacement with GJ tube but cancelled due to leukocytosis s/p EGD 11/07, old G tube removed, unable to place a new one due to a large site , currently on TPN strict aspir precautions protein supplement as per RD recs continue SNF meds as per primary supportive care bowel regimen wound care as per surgeon recs overall prognosis poor, given multiple comorbidities, with superimposed AML and ovarian mass, DNR/DNI status case discussed and evaluated by supervising physician Martha Chandler NP Nov 10, 2019 10:10
--- NOTE | 2019-11-10 10:45 | General Progress Note ---
Assessment/Plan Status: stable, unchanged Assessment/Plan: 1. AML. 2. Respiratory failure with vent. 3. Dysphagia with G-tube. 4. Ovarian mass. 5. Advanced Parkinson disease. 6. Anemia requiring blood transfusion in the past. 7. Dementia. 8. Pancytopenia. unable to place GJT due to very large gastrocutaneous fibula on TPN will need new GT when this site is closed Subjective ROS Limited/Unobtainable: No Allergies: Coded Allergies: PENICILLINS (Verified Allergy, Unknown, 11/01/19) VANCOMYCIN (Verified Allergy, Unknown, 11/01/19) Uncoded Allergies: PENICI (Allergy, Unknown, 11/01/19) Objective Last 24 Hour Vital Signs Date Time Temp Pulse Resp B/P (MAP) Pulse Ox O2 Delivery O2 Flow Rate FiO2 11/10/19 08:00 99.2 91 20 109/57 (74) 100 11/10/19 08:00 40 11/10/19 08:00 Mechanical Ventilator 11/10/19 07:23 90 22 40 11/10/19 04:00 40 11/10/19 04:00 Mechanical Ventilator 11/10/19 04:00 97.7 92 18 101/61 (74) 100 11/10/19 03:30 91 11/10/19 02:45 83 24 40 11/10/19 00:00 Mechanical Ventilator 11/10/19 00:00 87 11/10/19 00:00 98.1 88 23 118/62 (80) 100 11/09/19 23:00 91 24 40 11/09/19 22:03 99.1 11/09/19 20:00 40 11/09/19 20:00 Mechanical Ventilator 11/09/19 20:00 100.2 102 21 110/57 (74) 99 11/09/19 19:40 100 23 40 11/09/19 19:03 98 11/09/19 16:00 40 11/09/19 16:00 98 11/09/19 16:00 Mechanical Ventilator 11/09/19 15:41 98.7 99 19 117/59 (78) 100 11/09/19 15:06 98 23 40 11/09/19 12:00 90 11/09/19 12:00 98.6 92 18 112/51 (71) 100 11/09/19 12:00 40 11/09/19 12:00 Mechanical Ventilator Intake and Output 11/09/19 11/10/19 19:00 07:00 Intake Total 850 ml 1013.70 ml Output Total 300 ml 1100 ml Balance 550 ml -86.30 ml IV Total 850 ml 1013.70 ml Output Urine Total 300 ml 1100 ml # Voids 1 Laboratory Tests 11/10/19 03:20: White Blood Count 58.2#*H, Red Blood Count 3.39L, Hemoglobin 9.6L, Hematocrit 31.6L, Mean Corpuscular Volume 93, Mean Corpuscular Hemoglobin 28.2, Mean Corpuscular Hemoglobin Concent 30.2L, Red Cell Distribution Width 16.4H, Platelet Count 30L, Mean Platelet Volume 13.5H, Neutrophils (%) (Auto) , Lymphocytes (%) (Auto) , Monocytes (%) (Auto) , Eosinophils (%) (Auto) , Basophils (%) (Auto) , Differential Total Cells Counted 100, Neutrophils % ( Manual) 5L, Lymphocytes % (Manual) 15L, Monocytes % (Manual) 6, Eosinophils % ( Manual) 1, Basophils % (Manual) 0, Blast Cells % 73*H, Band Neutrophils 0, Platelet Estimate DecreasedL, Platelet Morphology Normal, Hypochromasia 1+, Anisocytosis 1+, Sodium Level 139, Potassium Level 3.0L, Chloride Level 108H, Carbon Dioxide Level 21, Anion Gap 10, Blood Urea Nitrogen 5L, Creatinine 0.8, Estimat Glomerular Filtration Rate > 60, Glucose Level 131H, Calcium Level 7.8L , Total Bilirubin 0.4, Aspartate Amino Transf (AST/SGOT) 37, Alanine Aminotransferase (ALT/SGPT) 7L, Alkaline Phosphatase 47, Total Protein 5.4L, Albumin 1.7L, Globulin 3.7, Albumin/Globulin Ratio 0.5L Height (Feet): 5 Height (Inches): 3.00 Weight (Pounds): 160 General Appearance: lethargic EENT: normal ENT inspection Neck: supple Cardiovascular: normal rate Respiratory/Chest: decreased breath sounds Abdomen: normal bowel sounds, non tender, soft Extremities: non-tender Negro Reeves MD Nov 10, 2019 10:45
[2019-11-10 12:00] VITALS: BP 116/68
--- NOTE | 2019-11-10 14:06 | Diagnostic Imaging Report ---
Procedure: XRAY Chest 1v Reason for study: Reason For Exam: SOB Comparison films: 11/07/2019. FINDINGS: Tracheostomy remains in place. Basilar infiltrates not significantly changed. Small effusions unchanged. Cardiac silhouette stable. The bony thorax appear unremarkable. IMPRESSION: NO SIGNIFICANT CHANGE COMPARED TO PREVIOUS EXAM.
[2019-11-10] MEDS: DAPTOmycin 500 MG in NS 50 ML IV SCH (14:45)
--- NOTE | 2019-11-10 15:12 | Surgery Progress Note ---
Surgery Progress Note Subjective Additional Comments Patient was unable to get GJ tube placed because of the large gastrocutaneous entry site. Currently has G-tube planned. Continue TPN. Need sites improved. Objective Last 24 Hour Vital Signs Date Time Temp Pulse Resp B/P (MAP) Pulse Ox O2 Delivery O2 Flow Rate FiO2 11/10/19 15:06 97 22 40 11/10/19 12:00 98.4 92 20 116/68 (84) 100 11/10/19 10:58 93 21 40 11/10/19 08:00 91 11/10/19 08:00 99.2 91 20 109/57 (74) 100 11/10/19 08:00 40 11/10/19 08:00 Mechanical Ventilator 11/10/19 07:23 90 22 40 11/10/19 04:00 40 11/10/19 04:00 Mechanical Ventilator 11/10/19 04:00 97.7 92 18 101/61 (74) 100 11/10/19 03:30 91 11/10/19 02:45 83 24 40 11/10/19 00:00 Mechanical Ventilator 11/10/19 00:00 87 11/10/19 00:00 98.1 88 23 118/62 (80) 100 11/09/19 23:00 91 24 40 11/09/19 22:03 99.1 11/09/19 20:00 40 11/09/19 20:00 Mechanical Ventilator 11/09/19 20:00 100.2 102 21 110/57 (74) 99 11/09/19 19:40 100 23 40 11/09/19 19:03 98 11/09/19 16:00 40 11/09/19 16:00 98 11/09/19 16:00 Mechanical Ventilator 11/09/19 15:41 98.7 99 19 117/59 (78) 100 I&O Intake and Output 11/09/19 11/10/19 19:00 07:00 Intake Total 850 ml 1013.70 ml Output Total 300 ml 1100 ml Balance 550 ml -86.30 ml IV Total 850 ml 1013.70 ml Output Urine Total 300 ml 1100 ml # Voids 1 Dressing: saturated Cardiovascular: RSR Respiratory: decreased breath sounds Abdomen: soft, present bowel sounds Extremities: no cyanosis, other Laboratory Tests Test 11/10/19 03:20 White Blood Count 58.2 K/UL (4.8-10.8) #*H Red Blood Count 3.39 M/UL (4.20-5.40) L Hemoglobin 9.6 G/DL (12.0-16.0) L Hematocrit 31.6 % (37.0-47.0) L Mean Corpuscular Volume 93 FL (80-99) Mean Corpuscular Hemoglobin 28.2 PG (27.0-31.0) Mean Corpuscular Hemoglobin Concent 30.2 G/DL (32.0-36.0) L Red Cell Distribution Width 16.4 % (11.6-14.8) H Platelet Count 30 K/UL (150-450) L Mean Platelet Volume 13.5 FL (6.5-10.1) H Neutrophils (%) (Auto) % (45.0-75.0) Lymphocytes (%) (Auto) % (20.0-45.0) Monocytes (%) (Auto) % (1.0-10.0) Eosinophils (%) (Auto) % (0.0-3.0) Basophils (%) (Auto) % (0.0-2.0) Differential Total Cells Counted 100 Neutrophils % (Manual) 5 % (45-75) L Lymphocytes % (Manual) 15 % (20-45) L Monocytes % (Manual) 6 % (1-10) Eosinophils % (Manual) 1 % (0-3) Basophils % (Manual) 0 % (0-2) Blast Cells % 73 % (0-0) *H Band Neutrophils 0 % (0-8) Platelet Estimate Decreased L Platelet Morphology Normal Hypochromasia 1+ Anisocytosis 1+ Sodium Level 139 MMOL/L (136-145) Potassium Level 3.0 MMOL/L (3.5-5.1) L Chloride Level 108 MMOL/L (98-107) H Carbon Dioxide Level 21 MMOL/L (21-32) Anion Gap 10 mmol/L (5-15) Blood Urea Nitrogen 5 mg/dL (7-18) L Creatinine 0.8 MG/DL (0.55-1.30) Estimat Glomerular Filtration Rate > 60 mL/min (>60) Glucose Level 131 MG/DL (74-106) H Calcium Level 7.8 MG/DL (8.5-10.1) L Total Bilirubin 0.4 MG/DL (0.2-1.0) Aspartate Amino Transf (AST/SGOT) 37 U/L (15-37) Alanine Aminotransferase (ALT/SGPT) 7 U/L (12-78) L Alkaline Phosphatase 47 U/L (46-116) Total Protein 5.4 G/DL (6.4-8.2) L Albumin 1.7 G/DL (3.4-5.0) L Globulin 3.7 g/dL Albumin/Globulin Ratio 0.5 (1.0-2.7) L Plan Problems: (1) Decubitus skin ulcer Assessment & Plan: Pt presented on admission with multiple Pressure Injuries, and contractures. Large Soft Mass noted to lateral R chest ,just inferior to Breast.Soft mass that uis violaceous and denuded. Unstageable Pressure injury R thoracic. Wound presents as partially opened DTPI( L)6cm x (W)8.5cm. 95% Soft eschar flap,5% dee. Marginal erythema along borders In addition scattered linear and purple area periwound. Full thickness stage 4 Sacral Pressure Injury(L)9.3cm x (W)8.7cm. Base of wound is 95% necrotic,but bone is palpable.Mild odor noted. No exudate noted. Non-blanching erythema periwound. Unstageable Pressure Injury R trochanter(L)3.5cm x (W)4.2cm. Base of wound is 90 % soft eschar, 10% pink epithelial. Edges adherent to base of wound .No erythema induration or fluctuance periwound. Unstageable Pressure injury R Ischium(L)3.5cm x (W)2.5cm. Dry eschar at base of wound, edges are adherent with surrounding pink epithelial. No erythema or induration periwound. DTPI L trochanter(L)4cm x (W)1cm. Stable dry eschar L Hallux(L)1.6cm x (W)2cm.NO erythema fluctuance or induration periwound. L 1st metatarsal TMA noted. Stable dry eschar distal/lateral L foot (L)1.5cm x (W)3cm. No erythema, induration or fluctuance periwound. DTPI noted to plantar L foot.(L)0.9cm x (W)0.9cm. Base of wound is fluctuant, purple with maroon borders. Unstageable Pressure injury L lateral Malleolus. Stable dry eschar noted.No erythema or induration periwound. L heel is boggy with non-blanching erythema. Unstageable Pressure injury R Hallux and plantar aspect(L)3.5cm x (W)3.4cm. Soft eschar at base of wound with marginal erythema along borders. R heel is boggy with Non-Blanching erythema. Unstageable Presure injury distal/Lateral R foot . Stable dry eschar noted . No erythema of fluctuance periwound. Tx.Plan: Cleanse Sacral Wound with Saline. Loosely pack with Therahoney impregnated Kerlix.Applpy Moisture Barrier Paste periwound. Cover with Optifoam drsg. Change Daily and prn. Cleanse Soft Mass R chest with Saline. Cover with Optifoam drsg. Change Daily and prn. Cleanse wounds R trochanter, R Ischium with Saline. Apply Moisture Barrier Paste.Cover with Optifoam drsg. Change every 3 days and prn. Apply Moisture Barrier to L trochanter. Cvoer with Optifoam drsg. Change every 3 days and prn. Apply Betadine to wounds R and L foot. Cover each wound with Optifoam drsg. Changee very 3 days and prn. Apply Cavilon Skin Barrier to both heels. Cover each heel with Optifoam drsg. Change every 7 days and prn. APM/ANA Mattress overlay. turn q2h nutritional optimization (2) Malnutrition Assessment & Plan: pending g tube DAILY ESTIMATED NEEDS: Needs based on Critical care, wounds, 64kg 22-28 kcals/kg 5591-7842 total kcals 1.25-2 g protein/kg 80-128 g total protein 25-30 mL/kg 7401-2256 total fluid mLs NUTRITION DIAGNOSIS: Swallowing difficulty r/t respiratory status as evidenced by pt is trach and peg dep. CURRENT TF:NPO ENTERAL NUTRITION RECOMMENDATIONS: VITAL AF 1.2 @ 55ml/hr x24 hrs to provide 1320ml, 1584 kcal, 99g pro, 1071ml free H2O - Post PEJ placement, initiate Vital AF 1.2 @ 25ml/hr x 6hrs, advance 10ml q 4- 6 hrs as tolerated to goal. - Flush per MD - HOB over 30 degrees ADDITIONAL RECOMMENDATIONS: 1) Per SNF: 65 inches (5'5"); 141 lbs (64.1kg) 2) Wound care: add MEIR BID via GT w/ TF order 3) Monitor lytes, replete as needed . (3) Anemia Assessment & Plan: transfused trend labs no active bleeding stool study GI eval (4) UTI (urinary tract infection) (5) Tracheostomy dependence Assessment & Plan: Findings: The left hemidiaphragm is elevated. Atelectatic changes are present in the left lung base. There is minimal right basilar atelectasis. No definite infiltrates. There is a tracheostomy. Impression: Elevated left hemidiaphragm with considerable left basilar atelectasis. Less extensive right basilar atelectasis. Inspiration is suboptimal. Interim development of opacity of the left mid and lower lung. The left hemidiaphragm is obscured. Right lung is probably clear , although there is crowding of bronchovascular lung volumes. Tracheostomy remains. Impression: Since 11/01/2019, interim development of left mid and lower lung infiltrates versus edema and possibly pleural fluid Juan Houser Nov 10, 2019 15:12
[2019-11-10 16:00] VITALS: BP 95/65
--- NOTE | 2019-11-10 16:00 | NUR ---
NURSE NOTES:ESCORTED PT WITH RT, HOSP TRANSPORTER STAFF TO CT DPT. PT HAD CT OF ABD & PELVIS PER M.D ORDERS. PT TOLERATED WELL PROCEDURE. ESCORTED PT BACK TO HER ROOM.NO ACUTE DISTRESS NOTED AT THIS TIME. WILL CONT TO MONITOR.
--- NOTE | 2019-11-10 16:21 | Diagnostic Imaging Report ---
EXAM: CT CT Abdomen Pelvis WO Contrast INDICATION: Abdominal pain. Abscess. COMPARISON: None TECHNIQUE: Axial images were obtained through the abdomen pelvis without intravenous contrast. Sagittal and coronal reformats are generated. All CT scans at this facility are performed using dose modulation techniques as appropriate to a performed exam including the following: automated exposure control with adjustment of the mA and/or kV according to patient size. RADIATION DOSE: CTDIvol: 13.1 mGy DLP: 756.7 mGy-cm Dose information generated by the CT scanner is available in PACS. FINDINGS: Bilateral small pleural effusions noted with bilateral dependent infiltrates. There are streak artifacts through the upper abdomen due to patient's arm position. Liver and spleen are grossly homogeneous to the extent visualized. Mild densities noted layering in the gallbladder perhaps some sludge or noncalcified stones. The pancreas is unremarkable. Adrenals are normal in morphology. Intrarenal stone noted at the midportion of the left kidney. No hydronephrosis seen bilaterally. Small bowel loops are nondistended. Colon is nondistended. There is a stoma in the left lower quadrant. The appendix is not visualized. The dominant abnormality is a huge septated cystic mass extending from the pelvis into the abdomen. It measures at least 14.5 x 26 cm in AP and transverse diameter. Craniocaudal length is approximately 19 cm. Small lymph nodes noted along the retroperitoneum. Bladder is empty with Bailey catheter in place. There is a small amount of fluid in the cul-de-sac but also in the upper abdomen adjacent to the hepatic and splenic edge. Soft tissue edema noted involving the flanks as well as abdominal and pelvic wall suggestive of anasarca. Severe degenerative changes and scoliosis of the spine noted. IMPRESSION: BILATERAL SMALL PLEURAL EFFUSIONS AND DEPENDENT INFILTRATES. HUGE SEPTATED CYSTIC MASS ARISING FROM THE PELVIS EXTENDING INTO THE ABDOMEN MOST LIKELY OF OVARIAN ORIGIN. SMALL AMOUNT OF FREE FLUID ADJACENT TO THE HEPATIC AND SPLENIC EDGE WELL IN THE PELVIS. LEFT RENAL STONE. POSSIBLE SLUDGE OR NONCALCIFIED STONES LAYERING IN THE GALLBLADDER. LEFT LOWER QUADRANT STOMA. SEVERE DEGENERATIVE CHANGES AND DEXTROSCOLIOSIS OF THE SPINE. ANASARCA.
--- NOTE | 2019-11-10 16:23 | NUR ---
NURSE NOTES: Notified Dr. Yadav,patient NPO,no G tube,CT abdomen done without oral contrast
--- NOTE | 2019-11-10 19:07 | NUR ---
NURSE NOTES: Received report from SRIKANTH Irvin. Patient is obtunded, vss, no acute distress, and on rn cardiac. Patient is clean with no signs of SOB. Trach to vent Shiley 6, AC 20, TV 400, FIo2 40%, and a PEEP of 5. Patient has old G-tube site with bandage dry and intact. Patients wounds observed and noted. Right upper arm PICC line is patent and intact with no signs of infection running TPN at 63mL/hr. Patient has a rounded and firm lower abdomen with no viable signs of pain when depressed or on rebound. Bed is at its lowest position, locked; call light in reach, and x3 bed rails are up. Will continue to monitor.
--- NOTE | 2019-11-10 19:10 | NUR ---
HAND-OFF: Report given to .ADRIEL DUKE.
--- NOTE | 2019-11-10 19:18 | Internal Med Progress Note ---
Subjective Date of Service: Nov 10, 2019 Physician Name Fredrick Prince Attending Physician Fredrick Prince MD Current Medications Medications (Trade) Dose Ordered Sig/Inna Route PRN Reason Start Time Stop Time Status Last Admin Dose Admin Acetaminophen (Tylenol) 650 mg Q4H PRN GT fever 100.4, mild pain 11/10/19 10:00 12/01/19 23:14 Acetaminophen (Tylenol) 650 mg Q4H PRN RECTAL Temp >100.5 11/08/19 21:30 12/08/19 21:29 11/09/19 21:33 Albuterol/ Ipratropium (Albuterol/ Ipratropium) 3 ml Q4H PRN HHN sob 11/07/19 10:15 11/12/19 10:14 Allopurinol (Zyloprim) 100 mg TID GT 11/02/19 09:00 12/02/19 08:59 11/08/19 08:42 Ascorbic Acid (Vitamin C) 500 mg DAILY GT 11/02/19 09:00 12/02/19 08:59 11/08/19 08:42 Carbidopa/Levodopa (Sinemet 25/100) 2 tab QID GT 11/02/19 09:00 12/02/19 08:59 11/08/19 08:42 Chlorhexidine Gluconate (Josefa-Hex 2%) 1 applic DAILY@2000 TOPIC 11/03/19 20:00 02/01/20 19:59 11/09/19 20:19 Daptomycin 500 mg/ Sodium Chloride 50 ml @ 100 mls/hr Q24H IV 11/08/19 16:00 11/15/19 15:59 11/10/19 14:45 Dextrose 1,000 ml @ 0 mls/hr Q24H PRN IV PN interrupted or unavailable 11/09/19 20:00 12/09/19 19:59 Dextrose (Dextrose 50%) 25 ml Q30M PRN IV Hypoglycemia 11/09/19 20:00 02/07/20 19:59 Dextrose (Dextrose 50%) 50 ml Q30M PRN IV Hypoglycemia 11/09/19 20:00 02/07/20 19:59 Docusate Sodium (Colace) 100 mg DAILY GT 11/02/19 09:00 12/02/19 08:59 11/08/19 08:41 Donepezil HCl (Aricept) 10 mg QHS GT 11/02/19 21:00 12/02/19 20:59 11/07/19 21:35 Entacapone (Comtan) 400 mg THREE TIMES A DAY ORAL 11/10/19 13:00 12/02/19 17:59 Fat Emulsion Intravenous 192 ml/Amino Acids/ Electrolytes/ Dextrose 1,872 ml @ 78 mls/hr Q24H IV 11/09/19 20:00 02/07/20 19:59 11/09/19 20:20 Insulin Aspart (NovoLOG) Q6HR SUBQ 11/06/19 12:00 02/04/20 11:59 11/10/19 12:27 Lansoprazole (Prevacid) 30 mg BID GT 11/02/19 09:00 12/02/19 08:59 11/08/19 08:41 Meropenem 1 gm/ Sodium Chloride 100 ml @ 200 mls/hr Q8HR IVPB 11/10/19 15:00 11/15/19 14:59 11/10/19 16:51 Metoclopramide HCl (Reglan) 5 mg Q6H PRN IVP nausea or vomiting 11/01/19 23:15 12/01/19 23:14 11/02/19 12:51 Multivitamins (Multivitamins W/ Minerals 15ml Liquid) 15 ml DAILY GT 11/02/19 09:00 12/02/19 08:59 11/08/19 08:42 Ondansetron HCl (Zofran) 4 mg Q4H PRN IVP Nausea & Vomiting 11/01/19 23:15 12/01/19 23:14 Pantoprazole (Protonix) 40 mg DAILY IVP 11/05/19 09:00 12/05/19 08:59 11/10/19 09:40 Polyethylene Glycol (Miralax) 17 gm DAILY PRN GT Constipation 11/02/19 08:30 12/02/19 07:59 Polymyxin B Sulfate 171465 units/Dextrose 550 ml @ 550 mls/hr EVERY 12 HOURS IV 11/10/19 21:00 11/17/19 20:59 Quetiapine Fumarate (SEROqueL) 50 mg QHS GT 11/02/19 21:00 12/17/19 20:59 11/07/19 21:36 Sennosides (Senokot) 8.6 mg QHS GT 11/02/19 21:00 12/02/19 20:59 11/07/19 21:32 Zinc Oxide (Desitin) 1 applic FOUR TIMES A DAY TOPIC 11/04/19 14:00 12/04/19 13:59 11/10/19 17:56 Allergies: Coded Allergies: PENICILLINS (Verified Allergy, Unknown, 11/01/19) VANCOMYCIN (Verified Allergy, Unknown, 11/01/19) Uncoded Allergies: PENICI (Allergy, Unknown, 11/01/19) ROS Limited/Unobtainable: Yes All Systems: reviewed and negative except above Subjective non verbal, chronic trach GJ tube failed due to big whole on TPN k low Objective Last Vital Signs Date Time Temp Pulse Resp B/P (MAP) Pulse Ox O2 Delivery O2 Flow Rate FiO2 11/10/19 19:05 106 21 40 11/10/19 16:00 Mechanical Ventilator 11/10/19 16:00 97.9 95/65 (75) 100 General Appearance: no apparent distress EENT: other - orally intubated Cardiovascular: normal rate, regular rhythm, systolic murmur Respiratory/Chest: rhonchi - right Abdomen: non tender, soft Edema: other - +edema Neurologic: aphasia, other - opens eyes Laboratory Tests Test 11/10/19 03:20 White Blood Count 58.2 K/UL (4.8-10.8) #*H Red Blood Count 3.39 M/UL (4.20-5.40) L Hemoglobin 9.6 G/DL (12.0-16.0) L Hematocrit 31.6 % (37.0-47.0) L Mean Corpuscular Volume 93 FL (80-99) Mean Corpuscular Hemoglobin 28.2 PG (27.0-31.0) Mean Corpuscular Hemoglobin Concent 30.2 G/DL (32.0-36.0) L Red Cell Distribution Width 16.4 % (11.6-14.8) H Platelet Count 30 K/UL (150-450) L Mean Platelet Volume 13.5 FL (6.5-10.1) H Neutrophils (%) (Auto) % (45.0-75.0) Lymphocytes (%) (Auto) % (20.0-45.0) Monocytes (%) (Auto) % (1.0-10.0) Eosinophils (%) (Auto) % (0.0-3.0) Basophils (%) (Auto) % (0.0-2.0) Differential Total Cells Counted 100 Neutrophils % (Manual) 5 % (45-75) L Lymphocytes % (Manual) 15 % (20-45) L Monocytes % (Manual) 6 % (1-10) Eosinophils % (Manual) 1 % (0-3) Basophils % (Manual) 0 % (0-2) Blast Cells % 73 % (0-0) *H Band Neutrophils 0 % (0-8) Platelet Estimate Decreased L Platelet Morphology Normal Hypochromasia 1+ Anisocytosis 1+ Sodium Level 139 MMOL/L (136-145) Potassium Level 3.0 MMOL/L (3.5-5.1) L Chloride Level 108 MMOL/L (98-107) H Carbon Dioxide Level 21 MMOL/L (21-32) Anion Gap 10 mmol/L (5-15) Blood Urea Nitrogen 5 mg/dL (7-18) L Creatinine 0.8 MG/DL (0.55-1.30) Estimat Glomerular Filtration Rate > 60 mL/min (>60) Glucose Level 131 MG/DL (74-106) H Calcium Level 7.8 MG/DL (8.5-10.1) L Total Bilirubin 0.4 MG/DL (0.2-1.0) Aspartate Amino Transf (AST/SGOT) 37 U/L (15-37) Alanine Aminotransferase (ALT/SGPT) 7 U/L (12-78) L Alkaline Phosphatase 47 U/L (46-116) Total Protein 5.4 G/DL (6.4-8.2) L Albumin 1.7 G/DL (3.4-5.0) L Globulin 3.7 g/dL Albumin/Globulin Ratio 0.5 (1.0-2.7) L Intake and Output 11/09/19 11/10/19 19:00 07:00 Intake Total 850 ml 1061.70 ml Output Total 300 ml 1100 ml Balance 550 ml -38.30 ml IV Total 850 ml 1061.70 ml Output Urine Total 300 ml 1100 ml # Voids [address] J tube . 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 d/w GI PGE/J in few week unable to put PEG J tube due to large whole KCL IV replete prn s/p Mg sulfate IV 2 gram flagyl IV leukocytosis could be AML flare s/p 3 units PRBC tx so far IV abx wound care f/u cx ID f/u electrolyte replete as needed enteral feeding ventilator pulm HHN dong pain control DNAR status Fredrick Prince MD Internal Medicine [phone] time spent today over 35 minutes stamp time on this note may NOT be the actual encounter time. Fredrick Prince MD Nov 10, 2019 19:18
[2019-11-10] MEDS: Dyna-Hex 2% Top Sol 2oz TOPIC SCH (19:51)
[2019-11-10] MEDS: FAT EMULSION 20% IV SCH (19:59)
[2019-11-10] MEDS: TPN IV SCH (19:59)
[2019-11-10 20:00] VITALS: BP 118/62
[2019-11-10] MEDS: Donepezil 10mg tab GT SCH (20:06)
[2019-11-10] MEDS: Sennosides 8.6mg tab GT SCH (20:07)
[2019-11-11] VITALS: BP 103/51
[2019-11-11 04:00] VITALS: BP 107/65
[2019-11-11] MEDS: Acetaminophen 650 MG SUPP RECTAL PRN (04:41)
[2019-11-11 04:44] LABS: HEMATOCRIT 28.3 % (37.0-47.0); HEMOGLOBIN 8.5 G/DL (12.0-16.0); MEAN CORPUSCULAR VOLUME 93 FL (80-99); PLATELET COUNT 42 K/UL (150-450); RED BLOOD COUNT 3.04 M/UL (4.20-5.40); RED CELL DISTRIBUTION WIDTH 16.6 % (11.6-14.8)
[2019-11-11 04:58] LABS: WHITE BLOOD COUNT 69.2 K/UL (4.8-10.8)
[2019-11-11 05:17] LABS: ALANINE AMINOTRANSFERASE 9 U/L (12-78); ALBUMIN 1.6 G/DL (3.4-5.0); ALBUMIN/GLOBULIN RATIO 0.5 (1.0-2.7); ALKALINE PHOSPHATASE 41 U/L (46-116); ANION GAP 9 mmol/L (5-15); ASPARTATE AMINO TRANSFERASE 26 U/L (15-37); BILIRUBIN,TOTAL 0.3 MG/DL (0.2-1.0); BLOOD UREA NITROGEN 5 mg/dL (7-18); CALCIUM 7.3 MG/DL (8.5-10.1); CARBON DIOXIDE 24 MMOL/L (21-32); CHLORIDE 107 MMOL/L (98-107); POTASSIUM 2.8 MMOL/L (3.5-5.1); SODIUM 140 MMOL/L (136-145)
[2019-11-11] MEDS: NovoLOG Insulin Flexpen SUBQ SCH ×3 (06:26→17:19)
--- NOTE | 2019-11-11 07:45 | NUR ---
HAND-OFF: Report given to SRIKANTH Cortez.
--- NOTE | 2019-11-11 07:59 | NUR ---
NURSE NOTES: Received report from SRIKANTH [place]. Patient is obtunded, no acute distress, and on tobacco roller. Patient is clean with no signs of SOB. Trach to vent Shiley 6, AC 20, TV 400, FIo2 40%, and a PEEP of 5. Patient has old G-tube site with dressing and intact. Patients wounds observed and noted. Right upper arm PICC line is patent and intact with no signs of infection. TPN running noted. Bed is at its lowest position, locked, and x3 bed rails are up. Will continue to monitor.
[2019-11-11 08:00] VITALS: BP 104/59
[2019-11-11] MEDS: Pantoprazole Inj IVP SCH (08:28)
[2019-11-11] MEDS: Desitin Rash Paste TOPIC SCH ×4 (08:33→20:46)
[2019-11-11] MEDS: Polymyxin B Sulfate 500,000 UNITS in D5W 500ml 550 ML IV SCH ×2 (08:53→20:32)
[2019-11-11] MEDS: Ascorbic Acid 500mg tab GT SCH (09:00)
[2019-11-11] MEDS: Multivitamins W/Minerals 15 ML UDC GT SCH (09:00)
[2019-11-11] MEDS: Entacapone 200mg tab ORAL SCH ×3 (09:00→17:24)
[2019-11-11] MEDS: Allopurinol 100mg Tab GT SCH ×3 (09:00→16:00)
[2019-11-11] MEDS: Docusate 100mg/10ml Liq GT SCH (09:00)
[2019-11-11] MEDS: Levodopa/Carbidopa 25/100 tab GT SCH ×4 (09:00→21:00)
--- NOTE | 2019-11-11 09:36 | Pulmonology Progress Note ---
Martha Chandler SUBASSEMBLY SUPERVISOR 11/11/19 0936: Subjective ROS Limited/Unobtainable: Yes Constitutional: Reports: fatigue, other - + trach and vent ; Denies: fever Gastrointestinal/Abdominal: Denies: nausea, vomiting, diarrhea Psychiatric: Reports: other - NnA Skin: Denies: rash Musculoskeletal: Reports: other - NA Allergies: Coded Allergies: PENICILLINS (Verified Allergy, Unknown, 11/01/19) VANCOMYCIN (Verified Allergy, Unknown, 11/01/19) Uncoded Allergies: PENICI (Allergy, Unknown, 11/01/19) All Systems: reviewed and negative except above Subjective no signs of resp distress on current settings leuk with trend up- 69 this am, temp 101 at 4 am, currently afebrile s/p EGD , removal of G tube 10/07 now on TPN since 11/08 K leslie, started on K replacement as per GI Objective Last 24 Hour Vital Signs Date Time Temp Pulse Resp B/P (MAP) Pulse Ox O2 Delivery O2 Flow Rate FiO2 11/11/19 08:00 97.0 92 22 104/59 (74) 100 11/11/19 05:11 99.6 11/11/19 04:00 40 11/11/19 04:00 101.0 107 24 107/65 (79) 100 11/11/19 04:00 Mechanical Ventilator 11/11/19 03:50 104 11/11/19 03:39 99 22 40 11/11/19 00:00 104 11/11/19 00:00 97.7 102 21 103/51 (68) 99 11/11/19 00:00 Mechanical Ventilator 11/11/19 00:00 40 11/10/19 22:59 99 21 40 11/10/19 20:00 40 11/10/19 20:00 Mechanical Ventilator 11/10/19 20:00 98.0 102 19 118/62 (80) 100 11/10/19 19:25 103 11/10/19 19:05 106 21 40 11/10/19 16:00 Mechanical Ventilator 11/10/19 16:00 100 11/10/19 16:00 97.9 101 19 95/65 (75) 100 11/10/19 16:00 40 11/10/19 15:06 97 22 40 11/10/19 12:00 Mechanical Ventilator 11/10/19 12:00 98.4 92 20 116/68 (84) 100 11/10/19 12:00 40 11/10/19 11:48 94 11/10/19 10:58 93 21 40 Intake and Output 11/10/19 11/11/19 19:00 07:00 Intake Total 781 ml 1586 ml Output Total 450 ml 800 ml Balance 331 ml 786 ml IV Total 781 ml 1586 ml Output Urine Total 450 ml 800 ml # Voids 1 Objective General Appearance: no apparent distress, bedridden, vent dependent chronically ill appearing female Lines, tubes and drains: peripheral HEENT: normocephalic, atraumatic, anicteric, status post trach - Shiley #6, secretions small amount, thin consistency, white color , Vent AC 400-40%-20 PEEP 5 Respiratory/Chest: no respiratory distress, few scattered rhonchi Cardiovascular/Chest: regular rhythm, RUE PICC intact Abdomen: non tender, soft, dressing over old G tube site , dry Extremities: no edema, spastic LE Skin Exam: warm/dry, multiple DTI POA ( sacral, ankle foot, elbow) Neurologic: abnormal gait : bedridden, not responsive Musculoskeletal: atrophy - BLE Laboratory Tests 11/11/19 03:15: White Blood Count 69.2*H, Red Blood Count 3.04L, Hemoglobin 8.5L, Hematocrit 28.3L, Mean Corpuscular Volume 93, Mean Corpuscular Hemoglobin 28.1, Mean Corpuscular Hemoglobin Concent 30.2L, Red Cell Distribution Width 16.6H, Platelet Count 42L, Mean Platelet Volume 16.6H, Neutrophils (%) (Auto) , Lymphocytes (%) (Auto) , Monocytes (%) (Auto) , Eosinophils (%) (Auto) , Basophils (%) (Auto) , Differential Total Cells Counted 100, Neutrophils % ( Manual) 5L, Lymphocytes % (Manual) 16L, Monocytes % (Manual) 33H, Eosinophils % (Manual) 0, Basophils % (Manual) 0, Blast Cells % 46*H, Band Neutrophils 0, Platelet Estimate DecreasedL, Platelet Morphology Normal, Polychromasia 1+, Hypochromasia 2+, Anisocytosis 1+, Sodium Level 140, Potassium Level 2.8L, Chloride Level 107, Carbon Dioxide Level 24, Anion Gap 9, Blood Urea Nitrogen 5L , Creatinine 1.0, Estimat Glomerular Filtration Rate 54.0, Glucose Level 171H, Calcium Level 7.3L, Total Bilirubin 0.3, Aspartate Amino Transf (AST/SGOT) 26, Alanine Aminotransferase (ALT/SGPT) 9L, Alkaline Phosphatase 41L, Total Protein 5.0L, Albumin 1.6L, Globulin 3.4, Albumin/Globulin Ratio 0.5L Current Medications Medications (Trade) Dose Ordered Sig/Inna Route PRN Reason Start Time Stop Time Status Last Admin Dose Admin Acetaminophen (Tylenol) 650 mg Q4H PRN GT fever 100.4, mild pain 11/10/19 10:00 12/01/19 23:14 Acetaminophen (Tylenol) 650 mg Q4H PRN RECTAL Temp >100.5 11/08/19 21:30 12/08/19 21:29 11/11/19 04:41 Albuterol/ Ipratropium (Albuterol/ Ipratropium) 3 ml Q4H PRN HHN sob 11/07/19 10:15 11/12/19 10:14 Allopurinol (Zyloprim) 100 mg TID GT 11/02/19 09:00 12/02/19 08:59 11/08/19 08:42 Ascorbic Acid (Vitamin C) 500 mg DAILY GT 11/02/19 09:00 12/02/19 08:59 11/08/19 08:42 Carbidopa/Levodopa (Sinemet 25/100) 2 tab QID GT 11/02/19 09:00 12/02/19 08:59 11/08/19 08:42 Chlorhexidine Gluconate (Josefa-Hex 2%) 1 applic DAILY@2000 TOPIC 11/03/19 20:00 02/01/20 19:59 11/10/19 19:51 Daptomycin 500 mg/ Sodium Chloride 50 ml @ 100 mls/hr Q24H IV 11/08/19 16:00 11/15/19 15:59 11/10/19 14:45 Dextrose 1,000 ml @ 0 mls/hr Q24H PRN IV PN interrupted or unavailable 11/09/19 20:00 12/09/19 19:59 Dextrose (Dextrose 50%) 25 ml Q30M PRN IV Hypoglycemia 11/09/19 20:00 02/07/20 19:59 Dextrose (Dextrose 50%) 50 ml Q30M PRN IV Hypoglycemia 11/09/19 20:00 02/07/20 19:59 Docusate Sodium (Colace) 100 mg DAILY GT 11/02/19 09:00 12/02/19 08:59 11/08/19 08:41 Donepezil HCl (Aricept) 10 mg QHS GT 11/02/19 21:00 12/02/19 20:59 11/07/19 21:35 Entacapone (Comtan) 400 mg THREE TIMES A DAY ORAL 11/10/19 13:00 12/02/19 17:59 Fat Emulsion Intravenous 192 ml/Amino Acids/ Electrolytes/ Dextrose 1,872 ml @ 78 mls/hr Q24H IV 11/09/19 20:00 11/11/19 19:59 11/10/19 19:59 Fat Emulsion Intravenous 192 ml/Amino Acids/ Electrolytes/ Dextrose 1,872 ml @ 78 mls/hr Q24H IV 11/11/19 20:00 12/11/19 19:59 Insulin Aspart (NovoLOG) Q6HR SUBQ 11/06/19 12:00 02/04/20 11:59 11/11/19 06:26 Lansoprazole (Prevacid) 30 mg BID GT 11/02/19 09:00 12/02/19 08:59 11/08/19 08:41 Meropenem 1 gm/ Sodium Chloride 100 ml @ 200 mls/hr Q8HR IVPB 11/10/19 15:00 11/15/19 14:59 11/11/19 06:27 Metoclopramide HCl (Reglan) 5 mg Q6H PRN IVP nausea or vomiting 11/01/19 23:15 12/01/19 23:14 11/02/19 12:51 Multivitamins (Multivitamins W/ Minerals 15ml Liquid) 15 ml DAILY GT 11/02/19 09:00 12/02/19 08:59 11/08/19 08:42 Ondansetron HCl (Zofran) 4 mg Q4H PRN IVP Nausea & Vomiting 11/01/19 23:15 12/01/19 23:14 Pantoprazole (Protonix) 40 mg DAILY IVP 11/05/19 09:00 12/05/19 08:59 11/11/19 08:28 Polyethylene Glycol (Miralax) 17 gm DAILY PRN GT Constipation 11/02/19 08:30 12/02/19 07:59 Polymyxin B Sulfate 643387 units/Dextrose 550 ml @ 550 mls/hr EVERY 12 HOURS IV 11/10/19 21:00 11/17/19 20:59 11/11/19 08:53 Potassium Chloride 100 ml @ 50 mls/hr Q2H IVPB 11/11/19 09:00 11/11/19 12:59 11/11/19 08:29 Quetiapine Fumarate (SEROqueL) 50 mg QHS GT 11/02/19 21:00 12/17/19 20:59 11/07/19 21:36 Sennosides (Senokot) 8.6 mg QHS GT 11/02/19 21:00 12/02/19 20:59 11/07/19 21:32 Zinc Oxide (Desitin) 1 applic FOUR TIMES A DAY TOPIC 11/04/19 14:00 12/04/19 13:59 11/11/19 08:33 Assessment/Plan Assessment/Plan ASSESSMENT Chronic respiratory failure ventilator dependent with tracheostomy status Sepsis Bacteremia Pneumonia, possible aspiration UTI with Klebsiella 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), s/p 2 u PRBC Pancytopenia Dysphagia, feeding by G-tube Advanced Parkinson's disease Severe protein calorie malnutrition Malfunctioning G tube ( inadvertently was removed), s/p EGD and removal of G tube Multiple DTI , POA Ovarian mass consistent with neoplasm ANL Suspected COVID-19 infection ruled out Severe protein calorie malnutrition Functional quadriplegia PLAN OF CARE NAZARIO ventilator support, trach care, pulm toilet baseline ABG stable on current settings, keep as is and optimize as needed CXR 11/06 unchanged, SCX-Providencia Klebsiella CRE CXR 11/09 mo change: Tracheostomy remains in place. Basilar infiltrates not significantly changed. Small effusions unchanged BCX 10/31 05/28 Staph haemolyticus, likely contaminant BCX 11/01 05/28 MRSA BCX 11/03 NGTD UCX Klebsiella CRE BCX 11/05 ACB MDR, Staph BCX 11/06 NGTD abx as per ID recs -Dapto, Poly and Flagyl leuk rising, -CT A/P 11/09 BILATERAL SMALL PLEURAL EFFUSIONS AND DEPENDENT INFILTRATES. HUGE SEPTATED CYSTIC MASS ARISING FROM THE PELVIS EXTENDING INTO THE ABDOMEN MOST LIKELY OF OVARIAN ORIGIN. SMALL AMOUNT OF FREE FLUID ADJACENT TO THE HEPATIC AND SPLENIC EDGE WELL IN THE PELVIS. LEFT RENAL STONE. POSSIBLE SLUDGE OR NONCALCIFIED STONES LAYERING IN THE GALLBLADDER. LEFT LOWER QUADRANT STOMA. SEVERE DEGENERATIVE CHANGES AND DEXTROSCOLIOSIS OF THE SPINE. ANASARCA. ECHO with pEF 55%, no discrete vegetation seen COVID 11/01 NGT, Venous Duplex BLE NGT, apply SCD, monitor HH with goal to keep Hgb >7, trend PLT severe pancytopenia likely 2 to AML leukocytosis 2 to sepsis and partially probably due to malignancy/AML and ovarian Ca IVF, replace lytes as needed, replace K today and check Mg monitor volumes asp precautions GT was inadvertently removed s/p replacement 11/03 by GI started TF still leaking plan replacement with GJ tube but cancelled due to leukocytosis s/p EGD 11/07, old G tube removed, unable to place a new one due to a large site , currently on TPN strict aspir precautions protein supplement as per RD recs continue SNF meds as per primary supportive care bowel regimen wound care as per surgeon recs overall prognosis poor, given multiple comorbidities, with superimposed AML and ovarian mass, DNR/DNI status case discussed and evaluated by supervising physician Jerrell Wilson MD 11/11/19 1433: Subjective Allergies: Coded Allergies: PENICILLINS (Verified Allergy, Unknown, 11/01/19) VANCOMYCIN (Verified Allergy, Unknown, 11/01/19) Uncoded Allergies: PENICI (Allergy, Unknown, 11/01/19) Assessment/Plan Assessment/Plan Patient seen and examined with SUBASSEMBLY SUPERVISOR. Agree with above A&P as it reflects our joint deliberations. Progressive decline, Abx, vent support, consider transition to COPY CHASER/DPP, DNAR Martha Chandler NP Nov 11, 2019 09:36 Jerrell Wilson MD Nov 11, 2019 14:33
[2019-11-11] MEDS ORDERED: Albuterol/Ipratropium 3ml neb HHN PRN (09:40)
--- NOTE | 2019-11-11 11:21 | NUR ---
CASE MANAGEMENT:REVIEW SI;SEPSIS. BACTEREMIA. LEUKOCYTOSIS. KLEBSIELLA UTI. UNTREATED AML. OVARIAN MASS. 101.0 107 24 104/59 100% TRACH/VENT FIO2 @ 40% WBC 69.2 H/H 8.5/28.3 PLT 42 BLAST CELL 46 K+ 2.8 CA 7.3 ALB 1.6 IS;TPN KCL IV POLYMYXIN IV Q12 MEROPENEM IV Q8 DAPTOMYCIN IV Q24 PROTONIX IV QD ALLOPURINOL PREVACID REGLAN IV NAZARIO STATUS DCP;PATIENT IS FROM [facility]
--- NOTE | 2019-11-11 11:49 | NUR ---
RD ASSESSMENT & RECOMMENDATIONS SEE CARE ACTIVITY FOR COMPLETE ASSESSMENT DAILY ESTIMATED NEEDS: Needs based on Critical care, wounds, 64kg 22-28 kcals/kg 5800-6936 total kcals 1.25-2 g protein/kg 80-128 g total protein 25-30 mL/kg 3871-7048 total fluid mLs NUTRITION DIAGNOSIS: Swallowing difficulty r/t respiratory status as evidenced by pt is trach and peg dep, currently NPO, on TPN. CURRENT TF:NPO, on TPN ENTERAL NUTRITION RECOMMENDATIONS: VITAL AF 1.2 @ 55ml/hr x24 hrs to provide 1320ml, 1584 kcal, 99g pro, 1071ml free H2O - Post PEJ placement, initiate Vital AF 1.2 @ 25ml/hr x 6hrs, advance 10ml q 4-6 hrs as tolerated to goal. - Flush per - HOB over 30 degrees PARENTERAL NUTRITION RECOMMENDATIONS: D/AA Rate: 70 IL Rate: 8 Total Rate: 78 Volume: 1872 % Dextrose: 18 % AA: 5.5 Energy (kcals/kg): 1781 Protein (g/kg protein): 92 Nonprotein KCALS: 1412 GIR (mg CHO/kg/min): 3.3 % Fat KCALS: 22 NCP: N Ratio: 96:1 TPN Comment: - Maintain current TPN: -> D18%, AA 5.5% @70ml/hr w/ 20%IL @8ml/hr - all 3:1 - TF at goal meets 100% est needs, provides 28 kcal/kg and 1.4g/kg pro. - GIR<5 - IL <30% ADDITIONAL RECOMMENDATIONS: 1) Per SNF: 65 inches (5'5"); 141 lbs (64.1kg) 2) Wound care: add MEIR BID via GT w/ TF order 3) Monitor lytes, BG, and LFT's on TPN - check phos and mag (not checked since TPN initiation) .
[2019-11-11 12:00] VITALS: BP 127/64
--- NOTE | 2019-11-11 12:32 | General Progress Note ---
Assessment/Plan Status: stable, unchanged Assessment/Plan: 1. AML. 2. Respiratory failure with vent. 3. Dysphagia with G-tube. 4. Ovarian mass. 5. Advanced Parkinson disease. 6. Anemia requiring blood transfusion in the past. 7. Dementia. 8. Pancytopenia. unable to place GJT due to very large gastrocutaneous fibula on TPN adjust K will need new GT when this site is closed Subjective ROS Limited/Unobtainable: No Allergies: Coded Allergies: PENICILLINS (Verified Allergy, Unknown, 11/01/19) VANCOMYCIN (Verified Allergy, Unknown, 11/01/19) Uncoded Allergies: PENICI (Allergy, Unknown, 11/01/19) Objective Last 24 Hour Vital Signs Date Time Temp Pulse Resp B/P (MAP) Pulse Ox O2 Delivery O2 Flow Rate FiO2 11/11/19 12:00 97.5 93 21 127/64 (85) 100 11/11/19 10:54 91 21 40 11/11/19 08:00 97.0 92 22 104/59 (74) 100 11/11/19 08:00 Mechanical Ventilator 11/11/19 08:00 40 11/11/19 07:45 92 11/11/19 06:57 98 20 40 11/11/19 05:11 99.6 11/11/19 04:00 40 11/11/19 04:00 101.0 107 24 107/65 (79) 100 11/11/19 04:00 Mechanical Ventilator 11/11/19 03:50 104 11/11/19 03:39 99 22 40 11/11/19 00:00 104 11/11/19 00:00 97.7 102 21 103/51 (68) 99 11/11/19 00:00 Mechanical Ventilator 11/11/19 00:00 40 11/10/19 22:59 99 21 40 11/10/19 20:00 40 11/10/19 20:00 Mechanical Ventilator 11/10/19 20:00 98.0 102 19 118/62 (80) 100 11/10/19 19:25 103 11/10/19 19:05 106 21 40 11/10/19 16:00 Mechanical Ventilator 11/10/19 16:00 100 11/10/19 16:00 97.9 101 19 95/65 (75) 100 11/10/19 16:00 40 11/10/19 15:06 97 22 40 Intake and Output 11/10/19 11/11/19 19:00 07:00 Intake Total 781 ml 1586 ml Output Total 450 ml 800 ml Balance 331 ml 786 ml IV Total 781 ml 1586 ml Output Urine Total 450 ml 800 ml # Voids 1 Laboratory Tests 11/11/19 03:15: White Blood Count 69.2*H, Red Blood Count 3.04L, Hemoglobin 8.5L, Hematocrit 28.3L, Mean Corpuscular Volume 93, Mean Corpuscular Hemoglobin 28.1, Mean Corpuscular Hemoglobin Concent 30.2L, Red Cell Distribution Width 16.6H, Platelet Count 42L, Mean Platelet Volume 16.6H, Neutrophils (%) (Auto) , Lymphocytes (%) (Auto) , Monocytes (%) (Auto) , Eosinophils (%) (Auto) , Basophils (%) (Auto) , Differential Total Cells Counted 100, Neutrophils % ( Manual) 5L, Lymphocytes % (Manual) 16L, Monocytes % (Manual) 33H, Eosinophils % (Manual) 0, Basophils % (Manual) 0, Blast Cells % 46*H, Band Neutrophils 0, Platelet Estimate DecreasedL, Platelet Morphology Normal, Polychromasia 1+, Hypochromasia 2+, Anisocytosis 1+, Sodium Level 140, Potassium Level 2.8L, Chloride Level 107, Carbon Dioxide Level 24, Anion Gap 9, Blood Urea Nitrogen 5L , Creatinine 1.0, Estimat Glomerular Filtration Rate 54.0, Glucose Level 171H, Calcium Level 7.3L, Total Bilirubin 0.3, Aspartate Amino Transf (AST/SGOT) 26, Alanine Aminotransferase (ALT/SGPT) 9L, Alkaline Phosphatase 41L, Total Protein 5.0L, Albumin 1.6L, Globulin 3.4, Albumin/Globulin Ratio 0.5L Height (Feet): 5 Height (Inches): 3.00 Weight (Pounds): 160 General Appearance: no apparent distress EENT: normal ENT inspection Neck: supple Cardiovascular: normal rate Respiratory/Chest: decreased breath sounds Abdomen: normal bowel sounds, non tender, soft Extremities: non-tender Negro Reeves MD Nov 11, 2019 12:32
--- NOTE | 2019-11-11 14:13 | Surgery Progress Note ---
Surgery Progress Note Subjective Additional Comments no acute events labs noted exam stable Objective Last 24 Hour Vital Signs Date Time Temp Pulse Resp B/P (MAP) Pulse Ox O2 Delivery O2 Flow Rate FiO2 11/11/19 12:00 40 11/11/19 12:00 Mechanical Ventilator 11/11/19 12:00 97.5 93 21 127/64 (85) 100 11/11/19 11:56 93 11/11/19 10:54 91 21 40 11/11/19 08:00 97.0 92 22 104/59 (74) 100 11/11/19 08:00 Mechanical Ventilator 11/11/19 08:00 40 11/11/19 07:45 92 11/11/19 06:57 98 20 40 11/11/19 05:11 99.6 11/11/19 04:00 40 11/11/19 04:00 101.0 107 24 107/65 (79) 100 11/11/19 04:00 Mechanical Ventilator 11/11/19 03:50 104 11/11/19 03:39 99 22 40 11/11/19 00:00 104 11/11/19 00:00 97.7 102 21 103/51 (68) 99 11/11/19 00:00 Mechanical Ventilator 11/11/19 00:00 40 11/10/19 22:59 99 21 40 11/10/19 20:00 40 11/10/19 20:00 Mechanical Ventilator 11/10/19 20:00 98.0 102 19 118/62 (80) 100 11/10/19 19:25 103 11/10/19 19:05 106 21 40 11/10/19 16:00 Mechanical Ventilator 11/10/19 16:00 100 11/10/19 16:00 97.9 101 19 95/65 (75) 100 11/10/19 16:00 40 11/10/19 15:06 97 22 40 I&O Intake and Output 11/10/19 11/11/19 19:00 07:00 Intake Total 781 ml 1586 ml Output Total 450 ml 800 ml Balance 331 ml 786 ml IV Total 781 ml 1586 ml Output Urine Total 450 ml 800 ml # Voids 1 Dressing: other Wound: other Drains: other Cardiovascular: RSR Respiratory: decreased breath sounds Abdomen: soft, present bowel sounds, non-distended Extremities: edema, no cyanosis, other Laboratory Tests Test 11/11/19 03:15 White Blood Count 69.2 K/UL (4.8-10.8) *H Red Blood Count 3.04 M/UL (4.20-5.40) L Hemoglobin 8.5 G/DL (12.0-16.0) L Hematocrit 28.3 % (37.0-47.0) L Mean Corpuscular Volume 93 FL (80-99) Mean Corpuscular Hemoglobin 28.1 PG (27.0-31.0) Mean Corpuscular Hemoglobin Concent 30.2 G/DL (32.0-36.0) L Red Cell Distribution Width 16.6 % (11.6-14.8) H Platelet Count 42 K/UL (150-450) L Mean Platelet Volume 16.6 FL (6.5-10.1) H Neutrophils (%) (Auto) % (45.0-75.0) Lymphocytes (%) (Auto) % (20.0-45.0) Monocytes (%) (Auto) % (1.0-10.0) Eosinophils (%) (Auto) % (0.0-3.0) Basophils (%) (Auto) % (0.0-2.0) Differential Total Cells Counted 100 Neutrophils % (Manual) 5 % (45-75) L Lymphocytes % (Manual) 16 % (20-45) L Monocytes % (Manual) 33 % (1-10) H Eosinophils % (Manual) 0 % (0-3) Basophils % (Manual) 0 % (0-2) Blast Cells % 46 % (0-0) *H Band Neutrophils 0 % (0-8) Platelet Estimate Decreased L Platelet Morphology Normal Polychromasia 1+ Hypochromasia 2+ Anisocytosis 1+ Sodium Level 140 MMOL/L (136-145) Potassium Level 2.8 MMOL/L (3.5-5.1) L Chloride Level 107 MMOL/L (98-107) Carbon Dioxide Level 24 MMOL/L (21-32) Anion Gap 9 mmol/L (5-15) Blood Urea Nitrogen 5 mg/dL (7-18) L Creatinine 1.0 MG/DL (0.55-1.30) Estimat Glomerular Filtration Rate 54.0 mL/min (>60) Glucose Level 171 MG/DL (74-106) H Calcium Level 7.3 MG/DL (8.5-10.1) L Total Bilirubin 0.3 MG/DL (0.2-1.0) Aspartate Amino Transf (AST/SGOT) 26 U/L (15-37) Alanine Aminotransferase (ALT/SGPT) 9 U/L (12-78) L Alkaline Phosphatase 41 U/L (46-116) L Total Protein 5.0 G/DL (6.4-8.2) L Albumin 1.6 G/DL (3.4-5.0) L Globulin 3.4 g/dL Albumin/Globulin Ratio 0.5 (1.0-2.7) L Plan Problems: (1) Decubitus skin ulcer Assessment & Plan: Pt presented on admission with multiple Pressure Injuries, and contractures. Large Soft Mass noted to lateral R chest ,just inferior to Breast.Soft mass that uis violaceous and denuded. Unstageable Pressure injury R thoracic. Wound presents as partially opened DTPI( L)6cm x (W)8.5cm. 95% Soft eschar flap,5% dee. Marginal erythema along borders In addition scattered linear and purple area periwound. Full thickness stage 4 Sacral Pressure Injury(L)9.3cm x (W)8.7cm. Base of wound is 95% necrotic,but bone is palpable.Mild odor noted. No exudate noted. Non-blanching erythema periwound. Unstageable Pressure Injury R trochanter(L)3.5cm x (W)4.2cm. Base of wound is 90 % soft eschar, 10% pink epithelial. Edges adherent to base of wound .No erythema induration or fluctuance periwound. Unstageable Pressure injury R Ischium(L)3.5cm x (W)2.5cm. Dry eschar at base of wound, edges are adherent with surrounding pink epithelial. No erythema or induration periwound. DTPI L trochanter(L)4cm x (W)1cm. Stable dry eschar L Hallux(L)1.6cm x (W)2cm.NO erythema fluctuance or induration periwound. L 1st metatarsal TMA noted. Stable dry eschar distal/lateral L foot (L)1.5cm x (W)3cm. No erythema, induration or fluctuance periwound. DTPI noted to plantar L foot.(L)0.9cm x (W)0.9cm. Base of wound is fluctuant, purple with maroon borders. Unstageable Pressure injury L lateral Malleolus. Stable dry eschar noted.No erythema or induration periwound. L heel is boggy with non-blanching erythema. Unstageable Pressure injury R Hallux and plantar aspect(L)3.5cm x (W)3.4cm. Soft eschar at base of wound with marginal erythema along borders. R heel is boggy with Non-Blanching erythema. Unstageable Presure injury distal/Lateral R foot . Stable dry eschar noted . No erythema of fluctuance periwound. Tx.Plan: Cleanse Sacral Wound with Saline. Loosely pack with Therahoney impregnated Kerlix.Applpy Moisture Barrier Paste periwound. Cover with Optifoam drsg. Change Daily and prn. Cleanse Soft Mass R chest with Saline. Cover with Optifoam drsg. Change Daily and prn. Cleanse wounds R trochanter, R Ischium with Saline. Apply Moisture Barrier Paste.Cover with Optifoam drsg. Change every 3 days and prn. Apply Moisture Barrier to L trochanter. Cvoer with Optifoam drsg. Change every 3 days and prn. Apply Betadine to wounds R and L foot. Cover each wound with Optifoam drsg. Changee very 3 days and prn. Apply Cavilon Skin Barrier to both heels. Cover each heel with Optifoam drsg. Change every 7 days and prn. APM/ANA Mattress overlay. turn q2h nutritional optimization (2) Malnutrition Assessment & Plan: pending g tube DAILY ESTIMATED NEEDS: Needs based on Critical care, wounds, 64kg 22-28 kcals/kg 3906-7710 total kcals 1.25-2 g protein/kg 80-128 g total protein 25-30 mL/kg 0698-9668 total fluid mLs NUTRITION DIAGNOSIS: Swallowing difficulty r/t respiratory status as evidenced by pt is trach and peg dep, currently NPO, on TPN. CURRENT TF:NPO, on TPN ENTERAL NUTRITION RECOMMENDATIONS: VITAL AF 1.2 @ 55ml/hr x24 hrs to provide 1320ml, 1584 kcal, 99g pro, 1071ml free H2O - Post PEJ placement, initiate Vital AF 1.2 @ 25ml/hr x 6hrs, advance 10ml q 4- 6 hrs as tolerated to goal. - Flush per - WYATT over 30 degrees PARENTERAL NUTRITION RECOMMENDATIONS: D/AA Rate: 70 IL Rate: 8 Total Rate: 78 Volume: 1872 % Dextrose: 18 % AA: 5.5 Energy (kcals/kg): 1781 Protein (g/kg protein): 92 Nonprotein KCALS: 1412 GIR (mg CHO/kg/min): 3.3 % Fat KCALS: 22 NCP: N Ratio: 96:1 TPN Comment: - Maintain current TPN: -> D18%, AA 5.5% @70ml/hr w/ 20%IL @8ml/hr - all 3:1 - TF at goal meets 100% est needs, provides 28 kcal/kg and 1.4g/kg pro. - GIR<5 - IL <30% ADDITIONAL RECOMMENDATIONS: 1) Per SNF: 65 inches (5'5"); 141 lbs (64.1kg) 2) Wound care: add MEIR BID via GT w/ TF order 3) Monitor lytes, BG, and LFT's on TPN - check phos and mag (not checked since TPN initiation) (3) Anemia Assessment & Plan: transfused trend labs no active bleeding stool study GI eval (4) UTI (urinary tract infection) (5) Tracheostomy dependence Assessment & Plan: Findings: The left hemidiaphragm is elevated. Atelectatic changes are present in the left lung base. There is minimal right basilar atelectasis. No definite infiltrates. There is a tracheostomy. Impression: Elevated left hemidiaphragm with considerable left basilar atelectasis. Less extensive right basilar atelectasis. Inspiration is suboptimal. Interim development of opacity of the left mid and lower lung. The left hemidiaphragm is obscured. Right lung is probably clear , although there is crowding of bronchovascular lung volumes. Tracheostomy remains. Impression: Since 11/01/2019, interim development of left mid and lower lung infiltrates versus edema and possibly pleural fluid Juan Houser Nov 11, 2019 14:13
--- NOTE | 2019-11-11 15:48 | Infectious Diseases Prog Note ---
Assessment/Plan Assessment/Plan ASSESSMENT AND PLAN: 1. 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 cholecystitis, CT abdomen and pelvis noted - daptomycin, polymyxin, flagyl, meropenem added - surveillance blood cultures, f/u on sc gram negatives - TTE - no vegetations identified - monitor labs and chest x-ray - wound management per surgery - leukocytosis maybe secondary to AML blast crises/flare 2. Trach, vent respiratory failure. 3. Dysphagia, G-tube. 4. Anemia. 5. Thrombocytopenia. 6. Leukocytosis. 7. Malnutrition. 8. Ovarian mass with neoplasm. 9. Parkinson's. 10. Dementia. 11. Skin care per Surgery and protocol. 12. Allergies to penicillin, vancomycin. 13. Social history is negative. 14. Family history is noncontributory. 15. MAR was noted. 16. Case was discussed with RN. 17. Continue treatment per primary consultants. 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 Subjective Constitutional: Reports: fever, fatigue Respiratory: Reports: shortness of breath Cardiovascular: Denies: chest pain Gastrointestinal/Abdominal: Denies: nausea, vomiting, diarrhea Genitourinary: Reports: other - + dong Neurologic: Denies: headache Psychiatric: Denies: depression Skin: Denies: rash Hematologic: Denies: bleeding Musculoskeletal: Denies: pain Allergies: Coded Allergies: PENICILLINS (Verified Allergy, Unknown, 11/01/19) VANCOMYCIN (Verified Allergy, Unknown, 11/01/19) Uncoded Allergies: PENICI (Allergy, Unknown, 11/01/19) Objective Vital Signs Last 24 Hour Vital Signs Date Time Temp Pulse Resp B/P (MAP) Pulse Ox O2 Delivery O2 Flow Rate FiO2 11/11/19 14:51 97 24 40 11/11/19 12:00 40 11/11/19 12:00 Mechanical Ventilator 11/11/19 12:00 97.5 93 21 127/64 (85) 100 11/11/19 11:56 93 11/11/19 10:54 91 21 40 11/11/19 08:00 97.0 92 22 104/59 (74) 100 11/11/19 08:00 Mechanical Ventilator 11/11/19 08:00 40 11/11/19 07:45 92 11/11/19 06:57 98 20 40 11/11/19 05:11 99.6 11/11/19 04:00 40 11/11/19 04:00 101.0 107 24 107/65 (79) 100 11/11/19 04:00 Mechanical Ventilator 11/11/19 03:50 104 11/11/19 03:39 99 22 40 11/11/19 00:00 104 11/11/19 00:00 97.7 102 21 103/51 (68) 99 11/11/19 00:00 Mechanical Ventilator 11/11/19 00:00 40 11/10/19 22:59 99 21 40 11/10/19 20:00 40 11/10/19 20:00 Mechanical Ventilator 11/10/19 20:00 98.0 102 19 118/62 (80) 100 11/10/19 19:25 103 11/10/19 19:05 106 21 40 11/10/19 16:00 Mechanical Ventilator 11/10/19 16:00 100 11/10/19 16:00 97.9 101 19 95/65 (75) 100 11/10/19 16:00 40 Height (Feet): 5 Height (Inches): 3.00 Weight (Pounds): 160 General Appearance: no acute distress HEENT: normocephalic, atraumatic, anicteric, mucous membranes moist Respiratory/Chest: crackles/rales, rhonchi - bilaterally Cardiovascular: normal rate, regular rhythm, no gallop/murmur, no JVD Abdomen: normal bowel sounds, soft, non tender, no organomegaly, non distended Genitourinary: other - + dong Extremities: no cyanosis Skin: no rash Neurologic/Psychiatric: ct mri technologist II-XII grossly normal, alert, oriented x 3, responsive Lymphatic: no neck adenopathy Musculoskeletal: no effusion Objective Chest x-ray - 11/05/19 - IMPRESSION: 1. Interval placement of right PICC line tip to the mid SVC. 2. Hypoventilatory lungs. Bibasilar atelectasis/consolidations, similar to prior study. 3. Probable bilateral pleural effusions. Chest x-ray - 11/07/19- Procedure: XRAY Chest 1v Procedure: XRAY Chest 1v Reason for study: Shortness of breath. Comparison films: 11/05/2019. FINDINGS: Tracheostomy and right PICC line remain in place. There is limited inspiration with bibasilar densities unchanged. Cardiac and mediastinal silhouette are within normal limits. No large effusion seen The bony thorax appear unremarkable. IMPRESSION: NO SIGNIFICANT CHANGE COMPARED TO PREVIOUS EXAM. CT abdomen and pelvis: IMPRESSION: BILATERAL SMALL PLEURAL EFFUSIONS AND DEPENDENT INFILTRATES. HUGE SEPTATED CYSTIC MASS ARISING FROM THE PELVIS EXTENDING INTO THE ABDOMEN MOST LIKELY OF OVARIAN ORIGIN. SMALL AMOUNT OF FREE FLUID ADJACENT TO THE HEPATIC AND SPLENIC EDGE WELL IN THE PELVIS. LEFT RENAL STONE. POSSIBLE SLUDGE OR NONCALCIFIED STONES LAYERING IN THE GALLBLADDER. LEFT LOWER QUADRANT STOMA. SEVERE DEGENERATIVE CHANGES AND DEXTROSCOLIOSIS OF THE SPINE. ANASARCA. Microbiology Date/Time Source Procedure Growth Status 11/07/19 12:20 Blood Blood Culture - Preliminary NO GROWTH AFTER 72 HOURS Resulted 11/06/19 10:04 Sputum Induced Gram Stain - Final Resulted 11/06/19 10:04 Sputum Culture - Preliminary Providencia Stuartii K.pneumoniae Carbapenem Resist Resulted 11/01/19 11:45 Urine,Clean Catch Urine Culture - Final K.pneumoniae Carbapenem Resist Complete 11/01/19 16:30 Rectum VRE Culture - Final Enterococcus Faecalis - Vre Complete Laboratory Tests Test 11/11/19 03:15 White Blood Count 69.2 K/UL (4.8-10.8) *H Red Blood Count 3.04 M/UL (4.20-5.40) L Hemoglobin 8.5 G/DL (12.0-16.0) L Hematocrit 28.3 % (37.0-47.0) L Mean Corpuscular Volume 93 FL (80-99) Mean Corpuscular Hemoglobin 28.1 PG (27.0-31.0) Mean Corpuscular Hemoglobin Concent 30.2 G/DL (32.0-36.0) L Red Cell Distribution Width 16.6 % (11.6-14.8) H Platelet Count 42 K/UL (150-450) L Mean Platelet Volume 16.6 FL (6.5-10.1) H Neutrophils (%) (Auto) % (45.0-75.0) Lymphocytes (%) (Auto) % (20.0-45.0) Monocytes (%) (Auto) % (1.0-10.0) Eosinophils (%) (Auto) % (0.0-3.0) Basophils (%) (Auto) % (0.0-2.0) Differential Total Cells Counted 100 Neutrophils % (Manual) 5 % (45-75) L Lymphocytes % (Manual) 16 % (20-45) L Monocytes % (Manual) 33 % (1-10) H Eosinophils % (Manual) 0 % (0-3) Basophils % (Manual) 0 % (0-2) Blast Cells % 46 % (0-0) *H Band Neutrophils 0 % (0-8) Platelet Estimate Decreased L Platelet Morphology Normal Polychromasia 1+ Hypochromasia 2+ Anisocytosis 1+ Sodium Level 140 MMOL/L (136-145) Potassium Level 2.8 MMOL/L (3.5-5.1) L Chloride Level 107 MMOL/L (98-107) Carbon Dioxide Level 24 MMOL/L (21-32) Anion Gap 9 mmol/L (5-15) Blood Urea Nitrogen 5 mg/dL (7-18) L Creatinine 1.0 MG/DL (0.55-1.30) Estimat Glomerular Filtration Rate 54.0 mL/min (>60) Glucose Level 171 MG/DL (74-106) H Calcium Level 7.3 MG/DL (8.5-10.1) L Total Bilirubin 0.3 MG/DL (0.2-1.0) Aspartate Amino Transf (AST/SGOT) 26 U/L (15-37) Alanine Aminotransferase (ALT/SGPT) 9 U/L (12-78) L Alkaline Phosphatase 41 U/L (46-116) L Total Protein 5.0 G/DL (6.4-8.2) L Albumin 1.6 G/DL (3.4-5.0) L Globulin 3.4 g/dL Albumin/Globulin Ratio 0.5 (1.0-2.7) L Current Medications Medications (Trade) Dose Ordered Sig/Inna Route PRN Reason Start Time Stop Time Status Last Admin Dose Admin Acetaminophen (Tylenol) 650 mg Q4H PRN GT fever 100.4, mild pain 11/10/19 10:00 12/01/19 23:14 Acetaminophen (Tylenol) 650 mg Q4H PRN RECTAL Temp >100.5 11/08/19 21:30 7/16/20 21:29 11/11/19 04:41 Albuterol/ Ipratropium (Albuterol/ Ipratropium) 3 ml Q4H PRN HHN sob 11/11/19 09:40 11/16/19 09:39 Allopurinol (Zyloprim) 100 mg TID GT 11/02/19 09:00 12/02/19 08:59 11/08/19 08:42 Ascorbic Acid (Vitamin C) 500 mg DAILY GT 11/02/19 09:00 12/02/19 08:59 11/08/19 08:42 Carbidopa/Levodopa (Sinemet 25/100) 2 tab QID GT 11/02/19 09:00 12/02/19 08:59 11/08/19 08:42 Chlorhexidine Gluconate (Josefa-Hex 2%) 1 applic DAILY@2000 TOPIC 11/03/19 20:00 02/01/20 19:59 11/10/19 19:51 Daptomycin 500 mg/ Sodium Chloride 50 ml @ 100 mls/hr Q24H IV 11/08/19 16:00 11/15/19 15:59 11/10/19 14:45 Dextrose 1,000 ml @ 0 mls/hr Q24H PRN IV PN interrupted or unavailable 11/09/19 20:00 12/09/19 19:59 Dextrose (Dextrose 50%) 25 ml Q30M PRN IV Hypoglycemia 11/09/19 20:00 02/07/20 19:59 Dextrose (Dextrose 50%) 50 ml Q30M PRN IV Hypoglycemia 11/09/19 20:00 02/07/20 19:59 Docusate Sodium (Colace) 100 mg DAILY GT 11/02/19 09:00 12/02/19 08:59 11/08/19 08:41 Donepezil HCl (Aricept) 10 mg QHS GT 11/02/19 21:00 12/02/19 20:59 11/07/19 21:35 Entacapone (Comtan) 400 mg THREE TIMES A DAY ORAL 11/10/19 13:00 12/02/19 17:59 Fat Emulsion Intravenous 192 ml/Amino Acids/ Electrolytes/ Dextrose 1,872 ml @ 78 mls/hr Q24H IV 11/09/19 20:00 11/11/19 19:59 11/10/19 19:59 Fat Emulsion Intravenous 192 ml/Amino Acids/ Electrolytes/ Dextrose 1,872 ml @ 78 mls/hr Q24H IV 11/11/19 20:00 12/11/19 19:59 Insulin Aspart (NovoLOG) Q6HR SUBQ 11/06/19 12:00 02/04/20 11:59 11/11/19 12:45 Lansoprazole (Prevacid) 30 mg BID GT 11/02/19 09:00 12/02/19 08:59 11/08/19 08:41 Meropenem 1 gm/ Sodium Chloride 100 ml @ 200 mls/hr Q8HR IVPB 11/10/19 15:00 11/15/19 14:59 11/11/19 13:11 Metoclopramide HCl (Reglan) 5 mg Q6H PRN IVP nausea or vomiting 11/01/19 23:15 12/01/19 23:14 11/02/19 12:51 Multivitamins (Multivitamins W/ Minerals 15ml Liquid) 15 ml DAILY GT 11/02/19 09:00 12/02/19 08:59 11/08/19 08:42 Ondansetron HCl (Zofran) 4 mg Q4H PRN IVP Nausea & Vomiting 11/01/19 23:15 12/01/19 23:14 Pantoprazole (Protonix) 40 mg DAILY IVP 11/05/19 09:00 12/05/19 08:59 11/11/19 08:28 Polyethylene Glycol (Miralax) 17 gm DAILY PRN GT Constipation 11/02/19 08:30 12/02/19 07:59 Polymyxin B Sulfate 373064 units/Dextrose 550 ml @ 550 mls/hr EVERY 12 HOURS IV 11/10/19 21:00 11/17/19 20:59 11/11/19 08:53 Quetiapine Fumarate (SEROqueL) 50 mg QHS GT 11/02/19 21:00 12/17/19 20:59 11/07/19 21:36 Sennosides (Senokot) 8.6 mg QHS GT 11/02/19 21:00 12/02/19 20:59 11/07/19 21:32 Zinc Oxide (Desitin) 1 applic FOUR TIMES A DAY TOPIC 11/04/19 14:00 12/04/19 13:59 11/11/19 12:48 González Yadav MD Nov 11, 2019 15:48
[2019-11-11 16:00] VITALS: BP 133/73
[2019-11-11] MEDS ORDERED: NS 275ml ONE ×2 (17:25→17:28)
[2019-11-11] MEDS ORDERED: Tubing IV Secondary IV ONE ×2 (17:25→17:28)
[2019-11-11] MEDS ORDERED: D5NS 1000ml IV ONE (17:28)
--- NOTE | 2019-11-11 17:30 | NUR ---
NURSE NOTES: Urin specimen collect, will sent to lab.
--- NOTE | 2019-11-11 17:40 | NUR ---
NURSE NOTES: Blood specimen from PICC line collected for blood culture.
--- NOTE | 2019-11-11 18:00 | NUR ---
NURSE NOTES: quality assurance technician at bed site for abdominal ultrasound.
[2019-11-11] MEDS: DAPTOmycin 500 MG in NS 50 ML IV SCH (18:20)
--- NOTE | 2019-11-11 18:37 | Diagnostic Imaging Report ---
EXAM: US Abdomen Complete CLINICAL HISTORY: GB TECHNIQUE: Real-time ultrasound of the abdomen with image documentation. COMPARISON: CT abdomen/pelvis on 11/10/2019 FINDINGS: Liver: Liver measures 17.1 cm, mildly enlarged. No intrahepatic bile duct dilation. Gallbladder: Sludge and possible small stones in the gallbladder. No gallbladder wall thickening or pericholecystic fluid. Common bile duct: Normal common bile duct measuring 5 mm. No stones. No dilation. Pancreas: Pancreas is not visualized due to overlying bowel gas and tubing/bandages. Kidneys: Right kidney measures 12.0 cm in length. No hydronephrosis or stone. Spleen: Spleen measures 11.5 cm. No focal lesion. Aorta: Visualized portions of the aorta are grossly unremarkable. Inferior vena cava: Unremarkable. Other vasculature: Patent main portal vein with normal direction of flow. Free fluid: Ascites. Pleural space: Small right pleural effusion. Tubes, lines and devices: Evaluation is limited by artifact related to tubing and bandages over the patient's abdomen. IMPRESSION: 1. Sludge and possible small stones in the gallbladder. No gallbladder wall thickening or pericholecystic fluid. 2. Ascites. 3. Small right pleural effusion.
--- NOTE | 2019-11-11 19:11 | Internal Med Progress Note ---
Subjective Date of Service: Nov 11, 2019 Physician Name Fredrick Prince Attending Physician Fredrick Prince MD Current Medications Medications (Trade) Dose Ordered Sig/Inna Route PRN Reason Start Time Stop Time Status Last Admin Dose Admin Acetaminophen (Tylenol) 650 mg Q4H PRN GT fever 100.4, mild pain 11/10/19 10:00 12/01/19 23:14 Acetaminophen (Tylenol) 650 mg Q4H PRN RECTAL Temp >100.5 11/08/19 21:30 12/08/19 21:29 11/11/19 04:41 Albuterol/ Ipratropium (Albuterol/ Ipratropium) 3 ml Q4H PRN HHN sob 11/11/19 09:40 11/16/19 09:39 Allopurinol (Zyloprim) 100 mg TID GT 11/02/19 09:00 12/02/19 08:59 11/08/19 08:42 Ascorbic Acid (Vitamin C) 500 mg DAILY GT 11/02/19 09:00 12/02/19 08:59 11/08/19 08:42 Carbidopa/Levodopa (Sinemet 25/100) 2 tab QID GT 11/02/19 09:00 12/02/19 08:59 11/08/19 08:42 Chlorhexidine Gluconate (Josefa-Hex 2%) 1 applic DAILY@2000 TOPIC 11/03/19 20:00 02/01/20 19:59 11/10/19 19:51 Daptomycin 500 mg/ Sodium Chloride 50 ml @ 100 mls/hr Q24H IV 11/08/19 16:00 11/15/19 15:59 11/11/19 18:20 Dextrose 1,000 ml @ 0 mls/hr Q24H PRN IV PN interrupted or unavailable 11/09/19 20:00 12/09/19 19:59 Dextrose (Dextrose 50%) 25 ml Q30M PRN IV Hypoglycemia 11/09/19 20:00 02/07/20 19:59 Dextrose (Dextrose 50%) 50 ml Q30M PRN IV Hypoglycemia 11/09/19 20:00 02/07/20 19:59 Docusate Sodium (Colace) 100 mg DAILY GT 11/02/19 09:00 12/02/19 08:59 11/08/19 08:41 Donepezil HCl (Aricept) 10 mg QHS GT 11/02/19 21:00 12/02/19 20:59 11/07/19 21:35 Entacapone (Comtan) 400 mg THREE TIMES A DAY ORAL 11/10/19 13:00 12/02/19 17:59 Fat Emulsion Intravenous 192 ml/Amino Acids/ Electrolytes/ Dextrose 1,872 ml @ 78 mls/hr Q24H IV 11/09/19 20:00 11/11/19 19:59 11/10/19 19:59 Fat Emulsion Intravenous 192 ml/Amino Acids/ Electrolytes/ Dextrose 1,872 ml @ 78 mls/hr Q24H IV 11/11/19 20:00 12/11/19 19:59 Insulin Aspart (NovoLOG) Q6HR SUBQ 11/06/19 12:00 02/04/20 11:59 11/11/19 12:45 Meropenem 1 gm/ Sodium Chloride 100 ml @ 200 mls/hr Q8HR IVPB 11/10/19 15:00 11/15/19 14:59 11/11/19 13:11 Metoclopramide HCl (Reglan) 5 mg Q6H PRN IVP nausea or vomiting 11/01/19 23:15 12/01/19 23:14 11/02/19 12:51 Multivitamins (Multivitamins W/ Minerals 15ml Liquid) 15 ml DAILY GT 11/02/19 09:00 12/02/19 08:59 11/08/19 08:42 Ondansetron HCl (Zofran) 4 mg Q4H PRN IVP Nausea & Vomiting 11/01/19 23:15 12/01/19 23:14 Pantoprazole (Protonix) 40 mg DAILY IVP 11/05/19 09:00 12/05/19 08:59 11/11/19 08:28 Polyethylene Glycol (Miralax) 17 gm DAILY PRN GT Constipation 11/02/19 08:30 12/02/19 07:59 Polymyxin B Sulfate 464583 units/Dextrose 550 ml @ 550 mls/hr EVERY 12 HOURS IV 11/10/19 21:00 11/17/19 20:59 11/11/19 08:53 Quetiapine Fumarate (SEROqueL) 50 mg QHS GT 11/02/19 21:00 12/17/19 20:59 11/07/19 21:36 Sennosides (Senokot) 8.6 mg QHS GT 11/02/19 21:00 12/02/19 20:59 11/07/19 21:32 Zinc Oxide (Desitin) 1 applic FOUR TIMES A DAY TOPIC 11/04/19 14:00 12/04/19 13:59 11/11/19 17:22 Allergies: Coded Allergies: PENICILLINS (Verified Allergy, Unknown, 11/01/19) VANCOMYCIN (Verified Allergy, Unknown, 11/01/19) Uncoded Allergies: PENICI (Allergy, Unknown, 11/01/19) ROS Limited/Unobtainable: Yes All Systems: reviewed and negative except above Subjective non verbal, chronic trach GJ tube failed due to big whole on TPN k low Objective Last Vital Signs Date Time Temp Pulse Resp B/P (MAP) Pulse Ox O2 Delivery O2 Flow Rate FiO2 11/11/19 16:00 98.8 101 23 133/73 (93) 100 11/11/19 16:00 40 11/11/19 16:00 Mechanical Ventilator General Appearance: no apparent distress EENT: other - trach w ventilator Cardiovascular: regular rhythm, regularly irregular Respiratory/Chest: rhonchi - bilaterally Abdomen: normal bowel sounds, non tender, soft Extremities: other - contracture Neurologic: unresponsiveness, aphasia Skin: warm/dry Laboratory Tests Test 11/11/19 03:15 White Blood Count 69.2 K/UL (4.8-10.8) *H Red Blood Count 3.04 M/UL (4.20-5.40) L Hemoglobin 8.5 G/DL (12.0-16.0) L Hematocrit 28.3 % (37.0-47.0) L Mean Corpuscular Volume 93 FL (80-99) Mean Corpuscular Hemoglobin 28.1 PG (27.0-31.0) Mean Corpuscular Hemoglobin Concent 30.2 G/DL (32.0-36.0) L Red Cell Distribution Width 16.6 % (11.6-14.8) H Platelet Count 42 K/UL (150-450) L Mean Platelet Volume 16.6 FL (6.5-10.1) H Neutrophils (%) (Auto) % (45.0-75.0) Lymphocytes (%) (Auto) % (20.0-45.0) Monocytes (%) (Auto) % (1.0-10.0) Eosinophils (%) (Auto) % (0.0-3.0) Basophils (%) (Auto) % (0.0-2.0) Differential Total Cells Counted 100 Neutrophils % (Manual) 5 % (45-75) L Lymphocytes % (Manual) 16 % (20-45) L Monocytes % (Manual) 33 % (1-10) H Eosinophils % (Manual) 0 % (0-3) Basophils % (Manual) 0 % (0-2) Blast Cells % 46 % (0-0) *H Band Neutrophils 0 % (0-8) Platelet Estimate Decreased L Platelet Morphology Normal Polychromasia 1+ Hypochromasia 2+ Anisocytosis 1+ Sodium Level 140 MMOL/L (136-145) Potassium Level 2.8 MMOL/L (3.5-5.1) L Chloride Level 107 MMOL/L (98-107) Carbon Dioxide Level 24 MMOL/L (21-32) Anion Gap 9 mmol/L (5-15) Blood Urea Nitrogen 5 mg/dL (7-18) L Creatinine 1.0 MG/DL (0.55-1.30) Estimat Glomerular Filtration Rate 54.0 mL/min (>60) Glucose Level 171 MG/DL (74-106) H Calcium Level 7.3 MG/DL (8.5-10.1) L Total Bilirubin 0.3 MG/DL (0.2-1.0) Aspartate Amino Transf (AST/SGOT) 26 U/L (15-37) Alanine Aminotransferase (ALT/SGPT) 9 U/L (12-78) L Alkaline Phosphatase 41 U/L (46-116) L Total Protein 5.0 G/DL (6.4-8.2) L Albumin 1.6 G/DL (3.4-5.0) L Globulin 3.4 g/dL Albumin/Globulin Ratio 0.5 (1.0-2.7) L Intake and Output 11/10/19 11/11/19 19:00 07:00 Intake Total 781 ml 1664 ml Output Total 450 ml 800 ml Balance 331 ml 864 ml IV Total 781 ml 1664 ml Output Urine Total 450 ml 800 ml # Voids [address] J tube . 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 d/w GI PGE/J in few week unable to put PEG J tube due to large whole KCL IV replete prn s/p Mg sulfate IV 2 gram flagyl IV leukocytosis could be AML flare s/p 3 units PRBC tx so far IV abx wound care f/u cx ID f/u electrolyte replete as needed enteral feeding ventilator pulm HHN dong pain control DNAR status Fredrick Prince MD Internal Medicine [phone] time spent today over 35 minutes stamp time on this note may NOT be the actual encounter time. Fredrick Prince MD Nov 11, 2019 19:11
[2019-11-11 19:28] LABS: APPEARANCE,URINE VERY CLOUDY; BILIRUBIN, URINE NEGATIVE (NEGATIVE); GLUCOSE, URINE (UA) NEGATIVE (NEGATIVE); KETONES,URINE 1+ (NEGATIVE); LEUKOCYTE ESTERASE ,URINE 3+ (NEGATIVE); NITRITE,URINE NEGATIVE (NEGATIVE); PH,URINE 6 (4.5-8.0); PROTEIN,URINE 3+ (NEGATIVE); UROBILINOGEN,URINE NORMAL MG/DL (0.0-1.0)
[2019-11-11 19:41] LABS: COLOR,URINE YELLOW
--- NOTE | 2019-11-11 19:48 | NUR ---
HAND-OFF: Report given to SRIKANTH Hui. Patient is stable at this moment. Endorsed plan of care.
--- NOTE | 2019-11-11 19:49 | NUR ---
NURSE NOTES: received pt from Leyda RN., and Dana RN., pt is awake and resting on the bed. obtunded. pt's trach in place, no SOB noted, O2sat is at 100%. old Gtube sites noted. right upper arm PICC line is intact, clean, and patent. Bailey cath is draining well with gravity. TPN is running at 78ml/hr. call light within reach. bed at the lowest position, alarmed, and locked. will continue to monitor pt with plan of care.
[2019-11-11 20:00] VITALS: BP 108/55
[2019-11-11] MEDS: Dyna-Hex 2% Top Sol 2oz TOPIC SCH (20:32)
[2019-11-11] MEDS: TPN IV SCH (20:45)
[2019-11-11] MEDS: FAT EMULSION 20% IV SCH (20:45)
[2019-11-11] MEDS: Sennosides 8.6mg tab GT SCH (21:00)
[2019-11-11] MEDS: Donepezil 10mg tab GT SCH (21:00)
[2019-11-12] VITALS: BP 101/45
[2019-11-12] MEDS: NovoLOG Insulin Flexpen SUBQ SCH ×4 (00:24→17:10)
[2019-11-12 04:00] VITALS: BP 118/65
--- NOTE | 2019-11-12 04:00 | NUR ---
NURSE NOTES: cleaned pt, no BM , new gown provided, new blanket provided. oral care given. no SOB noted. no bleeding noted at this time. call light within reach.
[2019-11-12 05:57] LABS: HEMATOCRIT 27.1 % (37.0-47.0); HEMOGLOBIN 8.5 G/DL (12.0-16.0); MEAN CORPUSCULAR VOLUME 91 FL (80-99); PLATELET COUNT 39 K/UL (150-450); RED BLOOD COUNT 2.99 M/UL (4.20-5.40); RED CELL DISTRIBUTION WIDTH 15.8 % (11.6-14.8)
[2019-11-12 06:06] LABS: WHITE BLOOD COUNT 78.4 K/UL (4.8-10.8)
[2019-11-12 06:15] LABS: ALANINE AMINOTRANSFERASE < 6 U/L (12-78); ALBUMIN 1.6 G/DL (3.4-5.0); ALBUMIN/GLOBULIN RATIO 0.5 (1.0-2.7); ALKALINE PHOSPHATASE 44 U/L (46-116); ANION GAP 8 mmol/L (5-15); ASPARTATE AMINO TRANSFERASE 26 U/L (15-37); BILIRUBIN,TOTAL 0.2 MG/DL (0.2-1.0); BLOOD UREA NITROGEN 12 mg/dL (7-18); CALCIUM 7.5 MG/DL (8.5-10.1); CARBON DIOXIDE 25 MMOL/L (21-32); CHLORIDE 108 MMOL/L (98-107); CREATININE 0.8 MG/DL (0.55-1.30); POTASSIUM 4.2 MMOL/L (3.5-5.1); SODIUM 140 MMOL/L (136-145)
[2019-11-12 06:18] LABS: CREATINE KINASE 12 U/L (26-308)
--- NOTE | 2019-11-12 06:31 | NUR ---
NURSE NOTES: left voice mail to regarding critical elevated WBC 78.4, and highest temperature today so far 99.7, and urine culture result. will wait for call back.
--- NOTE | 2019-11-12 07:05 | NUR ---
NURSE NOTES: Dr. Hdz gave 3g of Mag sulfate IV. noted. will carry on
--- NOTE | 2019-11-12 07:22 | NUR ---
NURSE NOTES: aware of elevated WBC, no new order. per Dr. Yadav, dont call for elevated WBC. noted and will carry on.
--- NOTE | 2019-11-12 07:24 | NUR ---
HAND-OFF: Report given to Ethan DUKE., pt remains stable condition. endorsed plan of care. Addendum: 11/12/19 at 0725 by EFFIE BELL RN wrong pt
--- NOTE | 2019-11-12 07:25 | NUR ---
HAND-OFF: Report given to Nancy DUKE. pt is stable condition, endorsed plan of care.
--- NOTE | 2019-11-12 07:36 | NUR ---
NURSE NOTES: Received report from SRIKANTH Ro. Patient in bed, resting, obtundent. No active s/s cardiac, respiratory distress noticed at this time. ST with HR 106. Endorsed NPO at this time, TPN running as prescribed rate 78ml/h. PICC line on right upper arm asymptomatic, patent, intact. Patient on mechanical vent to trach, Shiley 6 AC 20 TV 400 Fio2 40% PEEP 5, O2 sat 100%. Bailey Catheter draining well to gravity at this time. Endorsed Dr. Yadav made aware of WBC 78.4, no new order received at this time. Bed in lowest position, locked, side rails upx3, call light within reach, bed alarm on. Will continue to monitor.
[2019-11-12 08:00] VITALS: BP 117/52
[2019-11-12] MEDS: Pantoprazole Inj IVP SCH (08:05)
[2019-11-12] MEDS: Desitin Rash Paste TOPIC SCH ×4 (08:08→21:07)
[2019-11-12] MEDS: Polymyxin B Sulfate 500,000 UNITS in D5W 500ml 550 ML IV SCH ×2 (08:08→21:06)
[2019-11-12] MEDS: Ascorbic Acid 500mg tab GT SCH (09:00)
[2019-11-12] MEDS: Entacapone 200mg tab ORAL SCH ×3 (09:00→17:01)
[2019-11-12] MEDS: Multivitamins W/Minerals 15 ML UDC GT SCH (09:00)
[2019-11-12] MEDS: Allopurinol 100mg Tab GT SCH ×3 (09:00→17:01)
[2019-11-12] MEDS: Docusate 100mg/10ml Liq GT SCH (09:00)
[2019-11-12] MEDS: Levodopa/Carbidopa 25/100 tab GT SCH ×4 (09:00→21:00)
--- NOTE | 2019-11-12 10:09 | General Progress Note ---
Assessment/Plan Status: stable, unchanged Assessment/Plan: Assessment/Plan Status: stable, unchanged Assessment/Plan: 1. AML. 2. Respiratory failure with vent. 3. Dysphagia with G-tube. 4. Ovarian mass. 5. Advanced Parkinson disease. 6. Anemia requiring blood transfusion in the past. 7. Dementia. 8. Pancytopenia. unable to place GJT due to very large gastrocutaneous fibula on TPN adjust lytes PRN will need new GT when this site is closed Subjective Allergies: Coded Allergies: PENICILLINS (Verified Allergy, Unknown, 11/01/19) VANCOMYCIN (Verified Allergy, Unknown, 11/01/19) Uncoded Allergies: PENICI (Allergy, Unknown, 11/01/19) Subjective Above noted d/w icu staff nurse patient off of TF Objective Last 24 Hour Vital Signs Date Time Temp Pulse Resp B/P (MAP) Pulse Ox O2 Delivery O2 Flow Rate FiO2 11/12/19 08:27 106 11/12/19 08:00 40 11/12/19 08:00 Mechanical Ventilator 11/12/19 08:00 98.2 104 24 117/52 (73) 100 11/12/19 07:10 98 21 40 11/12/19 04:00 98.5 106 18 118/65 (82) 100 11/12/19 04:00 Mechanical Ventilator 11/12/19 04:00 107 11/12/19 04:00 40 11/12/19 03:48 109 22 40 11/12/19 00:00 40 11/12/19 00:00 Mechanical Ventilator 11/12/19 00:00 99.7 100 20 101/45 (63) 100 11/11/19 23:42 102 11/11/19 23:14 102 21 40 11/11/19 20:00 40 11/11/19 20:00 98.2 103 20 108/55 (72) 100 11/11/19 20:00 Mechanical Ventilator 11/11/19 20:00 103 11/11/19 19:21 103 21 40 11/11/19 16:00 98.8 101 23 133/73 (93) 100 11/11/19 16:00 40 11/11/19 16:00 Mechanical Ventilator 11/11/19 15:24 100 11/11/19 14:51 97 24 40 11/11/19 12:00 40 6/19/20 12:00 Mechanical Ventilator 11/11/19 12:00 97.5 93 21 127/64 (85) 100 11/11/19 11:56 93 11/11/19 10:54 91 21 40 Intake and Output 11/11/19 11/12/19 19:00 07:00 Intake Total 1680 ml 1630 ml Output Total 600 ml 1000 ml Balance 1080 ml 630 ml IV Total 1680 ml 1630 ml Output Urine Total 600 ml 1000 ml Laboratory Tests 11/11/19 17:30: Urine Color Yellow, Urine Appearance Very cloudy, Urine pH 6, Urine Specific Bent 1.015, Urine Protein 3+H, Urine Glucose (UA) Negative, Urine Ketones 1+H , Urine Blood 5+H, Urine Nitrite Negative, Urine Bilirubin Negative, Urine Urobilinogen Normal, Urine Leukocyte Esterase 3+H, Urine RBC 30-40H, Urine WBC 20-30H, Urine Squamous Epithelial Cells ManyH, Urine Bacteria ManyH, Urine Granular Casts 2-4H, Urine Yeast ManyH 11/12/19 05:15: White Blood Count 78.4*H, Red Blood Count 2.99L, Hemoglobin 8.5L, Hematocrit 27.1L, Mean Corpuscular Volume 91, Mean Corpuscular Hemoglobin 28.3, Mean Corpuscular Hemoglobin Concent 31.3L, Red Cell Distribution Width 15.8H, Platelet Count 39L, Mean Platelet Volume 13.7H, Neutrophils (%) (Auto) , Lymphocytes (%) (Auto) , Monocytes (%) (Auto) , Eosinophils (%) (Auto) , Basophils (%) (Auto) , Neutrophils % (Manual) [Pending], Lymphocytes % (Manual) [Pending], Platelet Estimate [Pending], Platelet Morphology [Pending], Sodium Level 140, Potassium Level 4.2, Chloride Level 108H, Carbon Dioxide Level 25, Anion Gap 8, Blood Urea Nitrogen 12, Creatinine 0.8, Estimat Glomerular Filtration Rate > 60, Glucose Level 166H, Calcium Level 7.5L, Magnesium Level 1.3L, Total Bilirubin 0.2, Aspartate Amino Transf (AST/SGOT) 26, Alanine Aminotransferase (ALT/SGPT) < 6L, Alkaline Phosphatase 44L, Total Creatine Kinase 12L, Total Protein 5.1L, Albumin 1.6L, Globulin 3.5, Albumin/Globulin Ratio 0.5L Height (Feet): 5 Height (Inches): 3.00 Weight (Pounds): 160 Objective debilitated [place] woman NCAT (+) trach coarse BS RR abd soft, (+) GT site with some mucoid drain no edema Faviola Weems MD Nov 12, 2019 10:09
--- NOTE | 2019-11-12 10:09 | Pulmonology Progress Note ---
Martha Chandler CHIP MACHINE OPERATOR 11/12/19 1009: Subjective ROS Limited/Unobtainable: Yes Allergies: Coded Allergies: PENICILLINS (Verified Allergy, Unknown, 11/01/19) VANCOMYCIN (Verified Allergy, Unknown, 11/01/19) Uncoded Allergies: PENICI (Allergy, Unknown, 11/01/19) All Systems: reviewed and negative except above Subjective no signs of resp distress on current settings leuk with trend up-78 this am, low grade fever at [place], , currently afebrile s/p EGD , removal of G tube 10/07 now on TPN since 11/08 Mg -1.3, Mg replacement infusing currently Objective Last 24 Hour Vital Signs Date Time Temp Pulse Resp B/P (MAP) Pulse Ox O2 Delivery O2 Flow Rate FiO2 11/12/19 08:27 106 11/12/19 08:00 40 11/12/19 08:00 Mechanical Ventilator 11/12/19 08:00 98.2 104 24 117/52 (73) 100 11/12/19 07:10 98 21 40 11/12/19 04:00 98.5 106 18 118/65 (82) 100 11/12/19 04:00 Mechanical Ventilator 11/12/19 04:00 107 11/12/19 04:00 40 11/12/19 03:48 109 22 40 11/12/19 00:00 40 11/12/19 00:00 Mechanical Ventilator 11/12/19 00:00 99.7 100 20 101/45 (63) 100 11/11/19 23:42 102 11/11/19 23:14 102 21 40 11/11/19 20:00 40 11/11/19 20:00 98.2 103 20 108/55 (72) 100 11/11/19 20:00 Mechanical Ventilator 11/11/19 20:00 103 11/11/19 19:21 103 21 40 11/11/19 16:00 98.8 101 23 133/73 (93) 100 11/11/19 16:00 40 11/11/19 16:00 Mechanical Ventilator 11/11/19 15:24 100 11/11/19 14:51 97 24 40 11/11/19 12:00 40 11/11/19 12:00 Mechanical Ventilator 11/11/19 12:00 97.5 93 21 127/64 (85) 100 11/11/19 11:56 93 11/11/19 10:54 91 21 40 Intake and Output 11/11/19 11/12/19 19:00 07:00 Intake Total 1680 ml 1630 ml Output Total 600 ml 1000 ml Balance 1080 ml 630 ml IV Total 1680 ml 1630 ml Output Urine Total 600 ml 1000 ml Objective General Appearance: no apparent distress, bedridden, vent dependent chronically ill appearing female Lines, tubes and drains: peripheral HEENT: normocephalic, atraumatic, anicteric, status post trach - Shiley #6, secretions small amount, thick consistency, white color , Vent AC 400-40%-20 PEEP 5 Respiratory/Chest: no respiratory distress, few scattered rhonchi Cardiovascular/Chest: regular rhythm, RUE PICC intact Abdomen: non tender, soft, domewhat distended, dressing over old G tube site , dry Extremities: no edema, spastic LE Skin Exam: warm/dry, multiple DTI POA ( sacral, ankle foot, elbow) Neurologic: abnormal gait : bedridden, not responsive Musculoskeletal: atrophy - BLE Laboratory Tests 11/11/19 17:30: Urine Color Yellow, Urine Appearance Very cloudy, Urine pH 6, Urine Specific Warren 1.015, Urine Protein 3+H, Urine Glucose (UA) Negative, Urine Ketones 1+H , Urine Blood 5+H, Urine Nitrite Negative, Urine Bilirubin Negative, Urine Urobilinogen Normal, Urine Leukocyte Esterase 3+H, Urine RBC 30-40H, Urine WBC 20-30H, Urine Squamous Epithelial Cells ManyH, Urine Bacteria ManyH, Urine Granular Casts 2-4H, Urine Yeast ManyH 11/12/19 05:15: White Blood Count 78.4*H, Red Blood Count 2.99L, Hemoglobin 8.5L, Hematocrit 27.1L, Mean Corpuscular Volume 91, Mean Corpuscular Hemoglobin 28.3, Mean Corpuscular Hemoglobin Concent 31.3L, Red Cell Distribution Width 15.8H, Platelet Count 39L, Mean Platelet Volume 13.7H, Neutrophils (%) (Auto) , Lymphocytes (%) (Auto) , Monocytes (%) (Auto) , Eosinophils (%) (Auto) , Basophils (%) (Auto) , Neutrophils % (Manual) [Pending], Lymphocytes % (Manual) [Pending], Platelet Estimate [Pending], Platelet Morphology [Pending], Sodium Level 140, Potassium Level 4.2, Chloride Level 108H, Carbon Dioxide Level 25, Anion Gap 8, Blood Urea Nitrogen 12, Creatinine 0.8, Estimat Glomerular Filtration Rate > 60, Glucose Level 166H, Calcium Level 7.5L, Magnesium Level 1.3L, Total Bilirubin 0.2, Aspartate Amino Transf (AST/SGOT) 26, Alanine Aminotransferase (ALT/SGPT) < 6L, Alkaline Phosphatase 44L, Total Creatine Kinase 12L, Total Protein 5.1L, Albumin 1.6L, Globulin 3.5, Albumin/Globulin Ratio 0.5L Current Medications Medications (Trade) Dose Ordered Sig/Inna Route PRN Reason Start Time Stop Time Status Last Admin Dose Admin Acetaminophen (Tylenol) 650 mg Q4H PRN GT fever 100.4, mild pain 11/10/19 10:00 12/01/19 23:14 Acetaminophen (Tylenol) 650 mg Q4H PRN RECTAL Temp >100.5 11/08/19 21:30 12/08/19 21:29 11/11/19 04:41 Albuterol/ Ipratropium (Albuterol/ Ipratropium) 3 ml Q4H PRN HHN sob 11/11/19 09:40 11/16/19 09:39 Allopurinol (Zyloprim) 100 mg TID GT 11/02/19 09:00 12/02/19 08:59 11/08/19 08:42 Ascorbic Acid (Vitamin C) 500 mg DAILY GT 11/02/19 09:00 12/02/19 08:59 11/08/19 08:42 Carbidopa/Levodopa (Sinemet 25/100) 2 tab QID GT 11/02/19 09:00 12/02/19 08:59 11/08/19 08:42 Chlorhexidine Gluconate (Josefa-Hex 2%) 1 applic DAILY@2000 TOPIC 11/03/19 20:00 02/01/20 19:59 11/11/19 20:32 Daptomycin 500 mg/ Sodium Chloride 50 ml @ 100 mls/hr Q24H IV 11/08/19 16:00 11/15/19 15:59 11/11/19 18:20 Dextrose 1,000 ml @ 0 mls/hr Q24H PRN IV PN interrupted or unavailable 11/09/19 20:00 12/09/19 19:59 Dextrose (Dextrose 50%) 25 ml Q30M PRN IV Hypoglycemia 11/09/19 20:00 02/07/20 19:59 Dextrose (Dextrose 50%) 50 ml Q30M PRN IV Hypoglycemia 11/09/19 20:00 02/07/20 19:59 Docusate Sodium (Colace) 100 mg DAILY GT 11/02/19 09:00 12/02/19 08:59 11/08/19 08:41 Donepezil HCl (Aricept) 10 mg QHS GT 11/02/19 21:00 12/02/19 20:59 11/07/19 21:35 Entacapone (Comtan) 400 mg THREE TIMES A DAY ORAL 11/10/19 13:00 12/02/19 17:59 Fat Emulsion Intravenous 192 ml/Amino Acids/ Electrolytes/ Dextrose 1,872 ml @ 78 mls/hr Q24H IV 11/11/19 20:00 12/11/19 19:59 11/11/19 20:45 Insulin Aspart (NovoLOG) Q6HR SUBQ 11/06/19 12:00 02/04/20 11:59 11/12/19 00:24 Magnesium Sulfate 100 ml @ 100 mls/hr Q1H IVPB 11/12/19 09:00 11/12/19 11:59 11/12/19 08:06 Meropenem 1 gm/ Sodium Chloride 100 ml @ 200 mls/hr Q8HR IVPB 11/10/19 15:00 11/15/19 14:59 11/12/19 05:17 Metoclopramide HCl (Reglan) 5 mg Q6H PRN IVP nausea or vomiting 11/01/19 23:15 12/01/19 23:14 11/02/19 12:51 Multivitamins (Multivitamins W/ Minerals 15ml Liquid) 15 ml DAILY GT 11/02/19 09:00 12/02/19 08:59 11/08/19 08:42 Ondansetron HCl (Zofran) 4 mg Q4H PRN IVP Nausea & Vomiting 11/01/19 23:15 12/01/19 23:14 Pantoprazole (Protonix) 40 mg DAILY IVP 11/05/19 09:00 12/05/19 08:59 11/12/19 08:05 Polyethylene Glycol (Miralax) 17 gm DAILY PRN GT Constipation 11/02/19 08:30 12/02/19 07:59 Polymyxin B Sulfate 389221 units/Dextrose 550 ml @ 550 mls/hr EVERY 12 HOURS IV 11/10/19 21:00 11/17/19 20:59 11/12/19 08:08 Quetiapine Fumarate (SEROqueL) 50 mg QHS GT 11/02/19 21:00 12/17/19 20:59 11/07/19 21:36 Sennosides (Senokot) 8.6 mg QHS GT 11/02/19 21:00 12/02/19 20:59 11/07/19 21:32 Zinc Oxide (Desitin) 1 applic FOUR TIMES A DAY TOPIC 11/04/19 14:00 12/04/19 13:59 11/12/19 08:08 Assessment/Plan Assessment/Plan ASSESSMENT Chronic respiratory failure ventilator dependent with tracheostomy status Sepsis Bacteremia Pneumonia, possible aspiration UTI with Klebsiella 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), s/p 2 u PRBC Pancytopenia Leukocytosis Dysphagia, feeding by G-tube Advanced Parkinson's disease Severe protein calorie malnutrition Malfunctioning G tube ( inadvertently was removed), s/p EGD and removal of G tube Multiple DTI , POA Ovarian mass consistent with neoplasm AML Suspected COVID-19 infection ruled out Severe protein calorie malnutrition Functional quadriplegia E/lyte abnormalities PLAN OF CARE NAZARIO ventilator support, trach care, pulm toilet baseline ABG stable on current settings, keep as is and optimize as needed CXR 11/06 unchanged, SCX 11/05 Providencia , Klebsiella CRE, pseudomonas CXR 11/09 no change: Tracheostomy remains in place. Basilar infiltrates not significantly changed. Small effusions unchanged BCX 10/31 05/28 Staph haemolyticus, likely contaminant BCX 11/01 05/28 MRSA BCX 11/03 NGTD UCX Klebsiella CRE BCX 11/05 ACB MDR, Staph BCX 11/06 NGTD abx as per ID recs -Dapto, Poly and Meropenem leuk rising, -CT A/P 11/09 BILATERAL SMALL PLEURAL EFFUSIONS AND DEPENDENT INFILTRATES. HUGE SEPTATED CYSTIC MASS ARISING FROM THE PELVIS EXTENDING INTO THE ABDOMEN MOST LIKELY OF OVARIAN ORIGIN. SMALL AMOUNT OF FREE FLUID ADJACENT TO THE HEPATIC AND SPLENIC EDGE WELL IN THE PELVIS. LEFT RENAL STONE. POSSIBLE SLUDGE OR NONCALCIFIED STONES LAYERING IN THE GALLBLADDER. LEFT LOWER QUADRANT STOMA. SEVERE DEGENERATIVE CHANGES AND DEXTROSCOLIOSIS OF THE SPINE. ANASARCA. ECHO with pEF 55%, no discrete vegetation seen COVID 11/01 NGT, Venous Duplex BLE NGT, apply SCD, monitor HH with goal to keep Hgb >7, trend PLT severe pancytopenia likely 2 to AML leukocytosis 2 to sepsis and partially probably due to malignancy/AML and ovarian Ca IVF, replace lytes as needed, replace K today and check Mg monitor volumes asp precautions GT was inadvertently removed s/p replacement 11/03 by GI started TF still leaking plan replacement with GJ tube but cancelled due to leukocytosis s/p EGD 11/07, old G tube removed, unable to place a new one due to a large site , currently on TPN strict aspir precautions protein supplement as per RD recs continue SNF meds as per primary supportive care bowel regimen wound care as per surgeon recs overall prognosis grave, given multiple comorbidities, with superimposed AML and ovarian mass, DNR/DNI status case discussed and evaluated by supervising physician Jerrell Wilson MD 11/14/19 1412: Subjective Allergies: Coded Allergies: PENICILLINS (Verified Allergy, Unknown, 11/01/19) VANCOMYCIN (Verified Allergy, Unknown, 11/01/19) Uncoded Allergies: PENICI (Allergy, Unknown, 11/01/19) Assessment/Plan Assessment/Plan Patient seen and examined with CHIP MACHINE OPERATOR. Agree with above A&P as it reflects our joint deliberations. Martha Chandler NP Nov 12, 2019 10:09 Jerrell Wilson MD Nov 14, 2019 14:12
[2019-11-12 12:00] VITALS: BP 105/58
[2019-11-12] MEDS ORDERED: Levofloxacin 750mg tab ORAL SCH (13:00)
--- NOTE | 2019-11-12 13:28 | NUR ---
NURSE NOTES: Per Dr. Yadav, discontinue PO levofloxacin change to IV levofloxacin q24h. Order noted, entered, carried out. Will continue to monitor.
--- NOTE | 2019-11-12 14:39 | NUR ---
NURSE NOTES: Noted patient's Levaquin IV order changed per pharmacy due to protocol pharmacy renal parameters. Noted. Will continue to monitor patient.
[2019-11-12] MEDS: DAPTOmycin 500 MG in NS 50 ML IV SCH (15:57)
[2019-11-12 16:00] VITALS: BP 109/58
--- NOTE | 2019-11-12 16:23 | Surgery Progress Note ---
Surgery Progress Note Subjective Additional Comments US noted labs worse ill appearing Objective Last 24 Hour Vital Signs Date Time Temp Pulse Resp B/P (MAP) Pulse Ox O2 Delivery O2 Flow Rate FiO2 11/12/19 16:00 98.6 101 21 109/58 (75) 100 11/12/19 16:00 Mechanical Ventilator 11/12/19 16:00 40 11/12/19 12:00 98 11/12/19 12:00 40 11/12/19 12:00 99.7 99 21 105/58 (74) 100 11/12/19 12:00 Mechanical Ventilator 11/12/19 11:10 100 21 40 11/12/19 08:27 106 11/12/19 08:00 40 11/12/19 08:00 Mechanical Ventilator 11/12/19 08:00 98.2 104 24 117/52 (73) 100 11/12/19 07:10 98 21 40 11/12/19 04:00 98.5 106 18 118/65 (82) 100 11/12/19 04:00 Mechanical Ventilator 11/12/19 04:00 107 11/12/19 04:00 40 11/12/19 03:48 109 22 40 11/12/19 00:00 40 11/12/19 00:00 Mechanical Ventilator 11/12/19 00:00 99.7 100 20 101/45 (63) 100 11/11/19 23:42 102 11/11/19 23:14 102 21 40 11/11/19 20:00 40 11/11/19 20:00 98.2 103 20 108/55 (72) 100 11/11/19 20:00 Mechanical Ventilator 11/11/19 20:00 103 11/11/19 19:21 103 21 40 I&O Intake and Output 11/11/19 11/12/19 19:00 07:00 Intake Total 1680 ml 1630 ml Output Total 600 ml 1000 ml Balance 1080 ml 630 ml IV Total 1680 ml 1630 ml Output Urine Total 600 ml 1000 ml Dressing: other Wound: other Drains: other Cardiovascular: RSR Respiratory: decreased breath sounds Abdomen: soft, non-tender, present bowel sounds Extremities: no cyanosis Laboratory Tests Test 11/11/19 17:30 11/12/19 05:15 Urine Color Yellow Urine Appearance Very cloudy Urine pH 6 (4.5-8.0) Urine Specific [place] 1.015 (1.005-1.035) Urine Protein 3+ (NEGATIVE) H Urine Glucose (UA) Negative (NEGATIVE) Urine Ketones 1+ (NEGATIVE) H Urine Blood 5+ (NEGATIVE) H Urine Nitrite Negative (NEGATIVE) Urine Bilirubin Negative (NEGATIVE) Urine Urobilinogen Normal MG/DL (0.0-1.0) Urine Leukocyte Esterase 3+ (NEGATIVE) H Urine RBC 30-40 /HPF (0 - 2) H Urine WBC 20-30 /HPF (0 - 2) H Urine Squamous Epithelial Cells Many /LPF (NONE/OCC) H Urine Bacteria Many /HPF (NONE) H Urine Granular Casts 2-4 /LPF (NONE) H Urine Yeast Many /HPF (NONE) H White Blood Count 78.4 K/UL (4.8-10.8) *H Red Blood Count 2.99 M/UL (4.20-5.40) L Hemoglobin 8.5 G/DL (12.0-16.0) L Hematocrit 27.1 % (37.0-47.0) L Mean Corpuscular Volume 91 FL (80-99) Mean Corpuscular Hemoglobin 28.3 PG (27.0-31.0) Mean Corpuscular Hemoglobin Concent 31.3 G/DL (32.0-36.0) L Red Cell Distribution Width 15.8 % (11.6-14.8) H Platelet Count 39 K/UL (150-450) L Mean Platelet Volume 13.7 FL (6.5-10.1) H Neutrophils (%) (Auto) % (45.0-75.0) Lymphocytes (%) (Auto) % (20.0-45.0) Monocytes (%) (Auto) % (1.0-10.0) Eosinophils (%) (Auto) % (0.0-3.0) Basophils (%) (Auto) % (0.0-2.0) Differential Total Cells Counted 100 Neutrophils % (Manual) 5 % (45-75) L Lymphocytes % (Manual) 16 % (20-45) L Monocytes % (Manual) 20 % (1-10) H Eosinophils % (Manual) 2 % (0-3) Basophils % (Manual) 0 % (0-2) Blast Cells % 57 % (0-0) *H Band Neutrophils 0 % (0-8) Platelet Estimate Decreased L Platelet Morphology Normal Hypochromasia 2+ Anisocytosis 1+ Sodium Level 140 MMOL/L (136-145) Potassium Level 4.2 MMOL/L (3.5-5.1) Chloride Level 108 MMOL/L (98-107) H Carbon Dioxide Level 25 MMOL/L (21-32) Anion Gap 8 mmol/L (5-15) Blood Urea Nitrogen 12 mg/dL (7-18) Creatinine 0.8 MG/DL (0.55-1.30) Estimat Glomerular Filtration Rate > 60 mL/min (>60) Glucose Level 166 MG/DL (74-106) H Calcium Level 7.5 MG/DL (8.5-10.1) L Magnesium Level 1.3 MG/DL (1.8-2.4) L Total Bilirubin 0.2 MG/DL (0.2-1.0) Aspartate Amino Transf (AST/SGOT) 26 U/L (15-37) Alanine Aminotransferase (ALT/SGPT) < 6 U/L (12-78) L Alkaline Phosphatase 44 U/L (46-116) L Total Creatine Kinase 12 U/L (26-308) L Total Protein 5.1 G/DL (6.4-8.2) L Albumin 1.6 G/DL (3.4-5.0) L Globulin 3.5 g/dL Albumin/Globulin Ratio 0.5 (1.0-2.7) L Plan Problems: (1) Decubitus skin ulcer Assessment & Plan: Pt presented on admission with multiple Pressure Injuries, and contractures. Large Soft Mass noted to lateral R chest ,just inferior to Breast.Soft mass that uis violaceous and denuded. Unstageable Pressure injury R thoracic. Wound presents as partially opened DTPI( L)6cm x (W)8.5cm. 95% Soft eschar flap,5% dee. Marginal erythema along borders In addition scattered linear and purple area periwound. Full thickness stage 4 Sacral Pressure Injury(L)9.3cm x (W)8.7cm. Base of wound is 95% necrotic,but bone is palpable.Mild odor noted. No exudate noted. Non-blanching erythema periwound. Unstageable Pressure Injury R trochanter(L)3.5cm x (W)4.2cm. Base of wound is 90 % soft eschar, 10% pink epithelial. Edges adherent to base of wound .No erythema induration or fluctuance periwound. Unstageable Pressure injury R Ischium(L)3.5cm x (W)2.5cm. Dry eschar at base of wound, edges are adherent with surrounding pink epithelial. No erythema or induration periwound. DTPI L trochanter(L)4cm x (W)1cm. Stable dry eschar L Hallux(L)1.6cm x (W)2cm.NO erythema fluctuance or induration periwound. L 1st metatarsal TMA noted. Stable dry eschar distal/lateral L foot (L)1.5cm x (W)3cm. No erythema, induration or fluctuance periwound. DTPI noted to plantar L foot.(L)0.9cm x (W)0.9cm. Base of wound is fluctuant, purple with maroon borders. Unstageable Pressure injury L lateral Malleolus. Stable dry eschar noted.No erythema or induration periwound. L heel is boggy with non-blanching erythema. Unstageable Pressure injury R Hallux and plantar aspect(L)3.5cm x (W)3.4cm. Soft eschar at base of wound with marginal erythema along borders. R heel is boggy with Non-Blanching erythema. Unstageable Presure injury distal/Lateral R foot . Stable dry eschar noted . No erythema of fluctuance periwound. Tx.Plan: Cleanse Sacral Wound with Saline. Loosely pack with Therahoney impregnated Kerlix.Applpy Moisture Barrier Paste periwound. Cover with Optifoam drsg. Change Daily and prn. Cleanse Soft Mass R chest with Saline. Cover with Optifoam drsg. Change Daily and prn. Cleanse wounds R trochanter, R Ischium with Saline. Apply Moisture Barrier Paste.Cover with Optifoam drsg. Change every 3 days and prn. Apply Moisture Barrier to L trochanter. Cvoer with Optifoam drsg. Change every 3 days and prn. Apply Betadine to wounds R and L foot. Cover each wound with Optifoam drsg. Changee very 3 days and prn. Apply Cavilon Skin Barrier to both heels. Cover each heel with Optifoam drsg. Change every 7 days and prn. APM/ANA Mattress overlay. turn q2h nutritional optimization (2) Malnutrition Assessment & Plan: pending g tube DAILY ESTIMATED NEEDS: Needs based on Critical care, wounds, 64kg 22-28 kcals/kg 1296-6448 total kcals 1.25-2 g protein/kg 80-128 g total protein 25-30 mL/kg 9163-3187 total fluid mLs NUTRITION DIAGNOSIS: Swallowing difficulty r/t respiratory status as evidenced by pt is trach and peg dep, currently NPO, on TPN. CURRENT TF:NPO, on TPN ENTERAL NUTRITION RECOMMENDATIONS: VITAL AF 1.2 @ 55ml/hr x24 hrs to provide 1320ml, 1584 kcal, 99g pro, 1071ml free H2O - Post PEJ placement, initiate Vital AF 1.2 @ 25ml/hr x 6hrs, advance 10ml q 4- 6 hrs as tolerated to goal. - Flush per - WYATT over 30 degrees PARENTERAL NUTRITION RECOMMENDATIONS: D/AA Rate: 70 IL Rate: 8 Total Rate: 78 Volume: 1872 % Dextrose: 18 % AA: 5.5 Energy (kcals/kg): 1781 Protein (g/kg protein): 92 Nonprotein KCALS: 1412 GIR (mg CHO/kg/min): 3.3 % Fat KCALS: 22 NCP: N Ratio: 96:1 TPN Comment: - Maintain current TPN: -> D18%, AA 5.5% @70ml/hr w/ 20%IL @8ml/hr - all 3:1 - TF at goal meets 100% est needs, provides 28 kcal/kg and 1.4g/kg pro. - GIR<5 - IL <30% ADDITIONAL RECOMMENDATIONS: 1) Per SNF: 65 inches (5'5"); 141 lbs (64.1kg) 2) Wound care: add MEIR BID via GT w/ TF order 3) Monitor lytes, BG, and LFT's on TPN - check phos and mag (not checked since TPN initiation) (3) Anemia Assessment & Plan: transfused trend labs no active bleeding stool study GI eval (4) UTI (urinary tract infection) (5) Tracheostomy dependence Assessment & Plan: Findings: The left hemidiaphragm is elevated. Atelectatic changes are present in the left lung base. There is minimal right basilar atelectasis. No definite infiltrates. There is a tracheostomy. Impression: Elevated left hemidiaphragm with considerable left basilar atelectasis. Less extensive right basilar atelectasis. Inspiration is suboptimal. Interim development of opacity of the left mid and lower lung. The left hemidiaphragm is obscured. Right lung is probably clear , although there is crowding of bronchovascular lung volumes. Tracheostomy remains. Impression: Since 11/01/2019, interim development of left mid and lower lung infiltrates versus edema and possibly pleural fluid Juan Houser Nov 12, 2019 16:23
--- NOTE | 2019-11-12 18:46 | NUR ---
NURSE NOTES: Per Dr. Hdz, order BMP, Mg, Phosphorus in the morning. Order entered, noted, and carried out. Will continue to monitor.
--- NOTE | 2019-11-12 19:11 | NUR ---
HAND-OFF: Report given to SRIKANTH Ro. Endorsed plan of care.
--- NOTE | 2019-11-12 19:14 | NUR ---
HAND-OFF: Report given to Ioana Cintron RN.
--- NOTE | 2019-11-12 19:15 | NUR ---
NURSE NOTES: received pt from Nancy RN., and Edis RN, pt is awake and resting on the bed. obtunded. pt's trach in place, no SOB noted, O2sat is at 100%. old Gtube sites noted. right upper arm PICC line is intact, clean, and patent. Bailey cath is draining well with gravity. TPN is running at 78ml/hr. call light within reach. bed at the lowest position, alarmed, and locked. will continue to monitor pt with plan of care.
[2019-11-12 20:00] VITALS: BP 108/54
[2019-11-12] MEDS: Dyna-Hex 2% Top Sol 2oz TOPIC SCH (20:19)
[2019-11-12] MEDS: TPN IV SCH (20:21)
[2019-11-12] MEDS: FAT EMULSION 20% IV SCH (20:21)
[2019-11-12] MEDS: Donepezil 10mg tab GT SCH (21:00)
[2019-11-12] MEDS: Sennosides 8.6mg tab GT SCH (21:00)
[2019-11-12] MEDS: Acetaminophen 650 MG SUPP RECTAL PRN (22:30)
--- NOTE | 2019-11-12 22:38 | NUR ---
NURSE NOTES: left voice mail to Dr. Yadav, regarding elevated temp 101.8. applied cooling measure to pt, tyenol given. call light within reach. no SOB noted. will continue to monitor pt with plan of care.
[2019-11-13] VITALS: BP 106/60
[2019-11-13] MEDS: NovoLOG Insulin Flexpen SUBQ SCH ×5 (00:56→23:02)
[2019-11-13 04:00] VITALS: BP 106/54
--- NOTE | 2019-11-13 04:00 | NUR ---
NURSE NOTES: per IT tech Arsh and [employer] test technician Piero, it is unable to upload the wound care picture due to ApniCure issue at least for now. will endorse to morning nurse to follow up.
--- NOTE | 2019-11-13 04:55 | NUR ---
NURSE NOTES: cleaned pt, oral care given, new gown given, no SOB noted at this time. O2sat is at 100%. call light within reach. will continue to monitor pt with plan of care.
[2019-11-13 06:42] LABS: ANION GAP 7 mmol/L (5-15); BLOOD UREA NITROGEN 17 mg/dL (7-18); CALCIUM 7.6 MG/DL (8.5-10.1); CARBON DIOXIDE 28 MMOL/L (21-32); CHLORIDE 106 MMOL/L (98-107); PHOSPHORUS 2.5 MG/DL (2.5-4.9); POTASSIUM 3.7 MMOL/L (3.5-5.1); SODIUM 141 MMOL/L (136-145)
--- NOTE | 2019-11-13 07:14 | NUR ---
HAND-OFF: Report given to Edis DUKE.pt is stable at this moment, endorsed plan of care
[2019-11-13 07:15] LABS: APPEARANCE,URINE SLIGHTLY CLOUDY; BILIRUBIN, URINE NEGATIVE (NEGATIVE); COLOR,URINE PALE YELLOW; GLUCOSE, URINE (UA) NEGATIVE (NEGATIVE); KETONES,URINE 1+ (NEGATIVE); LEUKOCYTE ESTERASE ,URINE 2+ (NEGATIVE); NITRITE,URINE NEGATIVE (NEGATIVE); PH,URINE 6 (4.5-8.0); PROTEIN,URINE 3+ (NEGATIVE); UROBILINOGEN,URINE NORMAL MG/DL (0.0-1.0)
--- NOTE | 2019-11-13 07:15 | NUR ---
NURSE NOTES: Received report from Ioana Cintron RN. Patient is resting in bed in stable condition. No s/sx of SOB, breathing is even and unlabored, on vent with vent settings as ordered. Patient is nonverbal, observed no presence of pain or discomfort at this time. Bed is in lowest position, brakes engaged. Call light is kept within easy reach. Will continue to monitor patient.
[2019-11-13 08:00] VITALS: BP 102/56
--- NOTE | 2019-11-13 08:00 | NUR ---
NURSE NOTES: Upon morning assessment, patient noted with dry blood exiting from patient's left ear, cleaned site and noted blood slowly oozing from left ear. Assess VS, BP 102/53, HR 102 bpm sinus tachycardia, no SOB noted. CBC results from 11/11 noted Hgb 8.5, Hct 27.1, and plt 39 K/UL. Called and informed Dr. Hdz covering for Dr. Prince. Dr. Hdz acknowledged and ordered to apply pressure on site and continue to monitor. Noted. Charge nurse made aware. Will continue to monitor patient.
[2019-11-13] MEDS: Levodopa/Carbidopa 25/100 tab GT SCH ×4 (08:01→20:56)
[2019-11-13] MEDS: Docusate 100mg/10ml Liq GT SCH (08:01)
[2019-11-13] MEDS: Ascorbic Acid 500mg tab GT SCH (08:01)
[2019-11-13] MEDS: Multivitamins W/Minerals 15 ML UDC GT SCH (08:01)
[2019-11-13] MEDS: Allopurinol 100mg Tab GT SCH ×3 (08:02→17:38)
[2019-11-13] MEDS: Entacapone 200mg tab ORAL SCH ×3 (08:02→17:38)
--- NOTE | 2019-11-13 08:10 | Diagnostic Imaging Report ---
EXAM: XR Chest, 1 View CLINICAL HISTORY: INFECT TECHNIQUE: Frontal view of the chest. COMPARISON: Chest x-ray dated 11/10/19 FINDINGS: Lungs: Persistent low lung volumes, which may be related to shallow inspiration. Bilateral patchy interstitial and air space opacities, most prominent in the left lung base. Pleural space: Possible small left pleural effusion. Heart: Unremarkable. No cardiomegaly. Mediastinum: Unremarkable. Bones/joints: Mild degenerative changes throughout the visualized spine. Tubes, lines and devices: Stable positioning of a tracheostomy tube. Tip of the right arm PICC in the region of the SVC. Telemetry leads overlie the thorax. IMPRESSION: 1. Persistent low lung volumes, which may be related to shallow inspiration. 2. Bilateral patchy interstitial and air space opacities, most prominent in the left lung base. This is stable to mildly worsened compared to the prior exam and is concerning for pneumonia versus pulmonary edema. 3. Possible small left pleural effusion.
[2019-11-13] MEDS: Polymyxin B Sulfate 500,000 UNITS in D5W 500ml 550 ML IV SCH ×2 (08:11→20:12)
[2019-11-13] MEDS: Pantoprazole Inj IVP SCH (08:11)
[2019-11-13] MEDS: Desitin Rash Paste TOPIC SCH ×4 (08:12→20:30)
--- NOTE | 2019-11-13 08:15 | Pulmonology Progress Note ---
Shaun Chandleret DRILLING FIELD SPECIALIST 11/13/19 0815: Subjective ROS Limited/Unobtainable: Yes Allergies: Coded Allergies: PENICILLINS (Verified Allergy, Unknown, 11/01/19) VANCOMYCIN (Verified Allergy, Unknown, 11/01/19) Uncoded Allergies: PENICI (Allergy, Unknown, 11/01/19) All Systems: reviewed and negative except above Subjective no signs of resp distress on current settings leukocytosis fever 101.8 last night , currently afebrile s/p EGD , removal of G tube 10/07 on TPN since 11/08 labs pending for this am left ear oozing Objective Last 24 Hour Vital Signs Date Time Temp Pulse Resp B/P (MAP) Pulse Ox O2 Delivery O2 Flow Rate FiO2 11/13/19 07:45 102 21 40 11/13/19 04:00 40 11/13/19 04:00 100 11/13/19 04:00 Mechanical Ventilator 11/13/19 04:00 97.7 103 22 106/54 (71) 100 11/13/19 04:00 Mechanical Ventilator 11/13/19 03:10 91 22 40 11/13/19 00:00 Mechanical Ventilator 11/13/19 00:00 40 11/13/19 00:00 109 11/13/19 00:00 97.9 109 21 106/60 (75) 100 11/12/19 23:35 95 23 40 11/12/19 23:00 99.8 11/12/19 20:00 Mechanical Ventilator 11/12/19 20:00 101.8 109 21 108/54 (72) 100 11/12/19 20:00 110 11/12/19 20:00 40 11/12/19 19:36 111 25 40 11/12/19 16:00 102 11/12/19 16:00 98.6 101 21 109/58 (75) 100 11/12/19 16:00 Mechanical Ventilator 11/12/19 16:00 40 11/12/19 15:15 102 25 40 11/12/19 12:00 98 11/12/19 12:00 40 11/12/19 12:00 99.7 99 21 105/58 (74) 100 11/12/19 12:00 Mechanical Ventilator 11/12/19 11:10 100 21 40 11/12/19 08:27 106 Intake and Output 11/12/19 11/13/19 19:00 07:00 Intake Total 1736 ml 1686 ml Output Total 1000 ml 800 ml Balance 736 ml 886 ml IV Total 1736 ml 1686 ml Output Urine Total 1000 ml 800 ml Objective General Appearance: no apparent distress, bedridden, vent dependent chronically ill appearing female Lines, tubes and drains: peripheral HEENT: normocephalic, atraumatic, anicteric, status post trach - Shiley #6, secretions small amount, thick consistency, white color , Vent AC 400-40%-20 PEEP 5 Respiratory/Chest: no respiratory distress, few scattered rhonchi Cardiovascular/Chest: regular rhythm, RUE PICC intact Abdomen: non tender, soft, domewhat distended, dressing over old G tube site , dry Extremities: no edema, spastic LE Skin Exam: warm/dry, multiple DTI POA ( sacral, ankle foot, elbow) Neurologic: abnormal gait : bedridden, not responsive Musculoskeletal: atrophy - BLE Microbiology Date/Time Source Procedure Growth Status 11/11/19 18:45 Blood Blood Culture - Preliminary Gram Negative Sabas Resulted 11/11/19 17:40 Blood Blood Culture - Preliminary NO GROWTH AFTER 24 HOURS Resulted 11/11/19 17:30 Indwelling Cath Urine Culture - Preliminary YEAST Resulted Laboratory Tests 11/13/19 02:30: Arterial Blood pH 7.346L, Arterial Blood Partial Pressure CO2 43.4, Arterial Blood Partial Pressure O2 93.4, Arterial Blood HCO3 23.2, Arterial Blood Oxygen Saturation 96.9, Arterial Blood Base Excess -2.3L, Sergio Test Positive 11/13/19 03:40: Sodium Level 141, Potassium Level 3.7, Chloride Level 106, Carbon Dioxide Level 28, Anion Gap 7, Blood Urea Nitrogen 17, Creatinine 1.0, Estimat Glomerular Filtration Rate 54.0, Glucose Level 151H, Calcium Level 7.6L, Phosphorus Level 2.5, Magnesium Level 1.7L 11/13/19 04:00: Urine Color Pale yellow, Urine Appearance Slightly cloudy, Urine pH 6, Urine Specific [place] 1.015, Urine Protein 3+H, Urine Glucose (UA) Negative, Urine Ketones 1+H, Urine Blood 5+H, Urine Nitrite Negative, Urine Bilirubin Negative, Urine Urobilinogen Normal, Urine Leukocyte Esterase 2+H, Urine RBC 10-15H, Urine WBC 5-10H, Urine Squamous Epithelial Cells Few, Urine Bacteria Few, Urine Yeast ModerateH Current Medications Medications (Trade) Dose Ordered Sig/Inna Route PRN Reason Start Time Stop Time Status Last Admin Dose Admin Acetaminophen (Tylenol) 650 mg Q4H PRN GT fever 100.4, mild pain 11/10/19 10:00 12/01/19 23:14 Acetaminophen (Tylenol) 650 mg Q4H PRN RECTAL Temp >100.5 11/08/19 21:30 12/08/19 21:29 11/12/19 22:30 Albuterol/ Ipratropium (Albuterol/ Ipratropium) 3 ml Q4H PRN HHN sob 11/11/19 09:40 11/16/19 09:39 Allopurinol (Zyloprim) 100 mg TID GT 11/02/19 09:00 12/02/19 08:59 11/08/19 08:42 Ascorbic Acid (Vitamin C) 500 mg DAILY GT 11/02/19 09:00 12/02/19 08:59 11/08/19 08:42 Carbidopa/Levodopa (Sinemet 25/100) 2 tab QID GT 11/02/19 09:00 12/02/19 08:59 11/08/19 08:42 Chlorhexidine Gluconate (Josefa-Hex 2%) 1 applic DAILY@2000 TOPIC 11/03/19 20:00 02/01/20 19:59 11/12/19 20:19 Daptomycin 500 mg/ Sodium Chloride 50 ml @ 100 mls/hr Q24H IV 11/08/19 16:00 11/15/19 15:59 11/12/19 15:57 Dextrose 1,000 ml @ 0 mls/hr Q24H PRN IV PN interrupted or unavailable 11/09/19 20:00 12/09/19 19:59 Dextrose (Dextrose 50%) 25 ml Q30M PRN IV Hypoglycemia 11/09/19 20:00 02/07/20 19:59 Dextrose (Dextrose 50%) 50 ml Q30M PRN IV Hypoglycemia 11/09/19 20:00 02/07/20 19:59 Docusate Sodium (Colace) 100 mg DAILY GT 11/02/19 09:00 12/02/19 08:59 11/08/19 08:41 Donepezil HCl (Aricept) 10 mg QHS GT 11/02/19 21:00 12/02/19 20:59 11/07/19 21:35 Entacapone (Comtan) 400 mg THREE TIMES A DAY ORAL 11/10/19 13:00 12/02/19 17:59 Fat Emulsion Intravenous 192 ml/Amino Acids/ Electrolytes/ Dextrose 1,872 ml @ 78 mls/hr Q24H IV 11/11/19 20:00 12/11/19 19:59 11/12/19 20:21 Insulin Aspart (NovoLOG) Q6HR SUBQ 11/06/19 12:00 02/04/20 11:59 11/13/19 00:56 Levofloxacin 50 ml @ 50 mls/hr Q24H IVPB 11/13/19 09:00 11/20/19 08:59 Meropenem 1 gm/ Sodium Chloride 100 ml @ 200 mls/hr Q8HR IVPB 11/10/19 15:00 11/15/19 14:59 11/13/19 05:41 Metoclopramide HCl (Reglan) 5 mg Q6H PRN IVP nausea or vomiting 11/01/19 23:15 12/01/19 23:14 11/02/19 12:51 Multivitamins (Multivitamins W/ Minerals 15ml Liquid) 15 ml DAILY GT 11/02/19 09:00 12/02/19 08:59 11/08/19 08:42 Ondansetron HCl (Zofran) 4 mg Q4H PRN IVP Nausea & Vomiting 11/01/19 23:15 12/01/19 23:14 Pantoprazole (Protonix) 40 mg DAILY IVP 11/05/19 09:00 12/05/19 08:59 11/12/19 08:05 Polyethylene Glycol (Miralax) 17 gm DAILY PRN GT Constipation 11/02/19 08:30 12/02/19 07:59 Polymyxin B Sulfate [id number] units/Dextrose 550 ml @ 550 mls/hr EVERY 12 HOURS IV 11/10/19 21:00 11/17/19 20:59 11/12/19 21:06 Quetiapine Fumarate (SEROqueL) 50 mg QHS GT 11/02/19 21:00 12/17/19 20:59 11/07/19 21:36 Sennosides (Senokot) 8.6 mg QHS GT 11/02/19 21:00 12/02/19 20:59 11/07/19 21:32 Zinc Oxide (Desitin) 1 applic FOUR TIMES A DAY TOPIC 11/04/19 14:00 12/04/19 13:59 11/12/19 21:07 Assessment/Plan Assessment/Plan ASSESSMENT Chronic respiratory failure ventilator dependent with tracheostomy status Sepsis Bacteremia Pneumonia, possible aspiration UTI with Klebsiella 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), s/p 2 u PRBC Pancytopenia Leukocytosis Dysphagia, feeding by G-tube Advanced Parkinson's disease Severe protein calorie malnutrition Malfunctioning G tube ( inadvertently was removed), s/p EGD and removal of G tube Multiple DTI , POA Ovarian mass consistent with neoplasm AML Suspected COVID-19 infection ruled out Severe protein calorie malnutrition Functional quadriplegia E/lyte abnormalities PLAN OF CARE NAZAROI ventilator support, trach care, pulm toilet baseline ABG stable on current settings, keep as is and optimize as needed CXR 11/06 unchanged, SCX 11/05 Providencia , Klebsiella CRE, pseudomonas CXR 11/09 no change: Tracheostomy remains in place. Basilar infiltrates not significantly changed. Small effusions unchanged CXR 11/12 -Persistent low lung volumes, may be related to shallow inspiration. Bilateral patchy interstitial and air space opacities, most prominent in the left lung base. Stable to mildly worsened compared to the prior exam and is concerning for pneumonia versus pulmonary edema. Possible small left pleural effusion. BCX 10/31 05/28 Staph haemolyticus, likely contaminant BCX 11/01 05/28 MRSA BCX 11/03 NGTD UCX Klebsiella CRE BCX 11/05 ACB MDR, Staph BCX 11/06 NGTD BCX 11/10 GNR UCX 11/10 + yeast abx as per ID recs -Dapto, Poly and Meropenem leuk rising, -CT A/P 11/09 BILATERAL SMALL PLEURAL EFFUSIONS AND DEPENDENT INFILTRATES. HUGE SEPTATED CYSTIC MASS ARISING FROM THE PELVIS EXTENDING INTO THE ABDOMEN MOST LIKELY OF OVARIAN ORIGIN. SMALL AMOUNT OF FREE FLUID ADJACENT TO THE HEPATIC AND SPLENIC EDGE WELL IN THE PELVIS. LEFT RENAL STONE. POSSIBLE SLUDGE OR NONCALCIFIED STONES LAYERING IN THE GALLBLADDER. LEFT LOWER QUADRANT STOMA. SEVERE DEGENERATIVE CHANGES AND DEXTROSCOLIOSIS OF THE SPINE. ANASARCA. ECHO with pEF 55%, no discrete vegetation seen COVID 11/01 NGT, Venous Duplex BLE NGT, apply SCD, monitor HH with goal to keep Hgb >7, trend PLT severe pancytopenia likely 2 to AML leukocytosis 2 to sepsis and partially probably due to malignancy/AML and ovarian Ca IVF, replace lytes as needed, replace K today and check Mg monitor volumes asp precautions GT was inadvertently removed s/p replacement 11/03 by GI started TF still leaking plan replacement with GJ tube but cancelled due to leukocytosis s/p EGD 11/07, old G tube removed, unable to place a new one due to a large site , currently on TPN strict aspir precautions protein supplement as per RD recs continue SNF meds as per primary supportive care bowel regimen wound care as per surgeon recs overall prognosis grave, given multiple comorbidities, with superimposed AML and ovarian mass, DNR/DNI status case discussed and evaluated by supervising physician Jerrell Wilson MD 11/14/19 1412: Subjective Allergies: Coded Allergies: PENICILLINS (Verified Allergy, Unknown, 11/01/19) VANCOMYCIN (Verified Allergy, Unknown, 11/01/19) Uncoded Allergies: PENICI (Allergy, Unknown, 11/01/19) Assessment/Plan Assessment/Plan Patient seen and examined with DRILLING FIELD SPECIALIST. Agree with above A&P as it reflects our joint deliberations. Martha Chandler NP Nov 13, 2019 08:15 Jerrell Wilson MD Nov 14, 2019 14:12
[2019-11-13] MEDS ORDERED: Tubing IV Secondary IV ONE (08:36)
[2019-11-13] MEDS ORDERED: NS 275ml ONE (08:36)
[2019-11-13] MEDS ORDERED: NS 500ML ONE (08:36)
[2019-11-13 12:00] VITALS: BP 123/65
--- NOTE | 2019-11-13 14:54 | Surgery Progress Note ---
Surgery Progress Note Subjective Additional Comments blood cultures with gram neg rods labs noted exam unchanged ill appearing Objective Last 24 Hour Vital Signs Date Time Temp Pulse Resp B/P (MAP) Pulse Ox O2 Delivery O2 Flow Rate FiO2 11/13/19 12:00 40 11/13/19 12:00 101 11/13/19 12:00 Mechanical Ventilator 11/13/19 12:00 98.1 104 21 123/65 (84) 100 11/13/19 11:26 104 21 40 11/13/19 08:00 104 11/13/19 08:00 98.8 102 22 102/56 (71) 100 11/13/19 08:00 Mechanical Ventilator 11/13/19 08:00 40 11/13/19 07:45 102 21 40 11/13/19 04:00 40 11/13/19 04:00 100 11/13/19 04:00 Mechanical Ventilator 11/13/19 04:00 97.7 103 22 106/54 (71) 100 11/13/19 04:00 Mechanical Ventilator 11/13/19 03:10 91 22 40 11/13/19 00:00 Mechanical Ventilator 11/13/19 00:00 40 11/13/19 00:00 109 11/13/19 00:00 97.9 109 21 106/60 (75) 100 11/12/19 23:35 95 23 40 11/12/19 23:00 99.8 11/12/19 20:00 Mechanical Ventilator 11/12/19 20:00 101.8 109 21 108/54 (72) 100 11/12/19 20:00 110 11/12/19 20:00 40 11/12/19 19:36 111 25 40 11/12/19 16:00 102 11/12/19 16:00 98.6 101 21 109/58 (75) 100 11/12/19 16:00 Mechanical Ventilator 11/12/19 16:00 40 11/12/19 15:15 102 25 40 I&O Intake and Output 11/12/19 11/13/19 19:00 07:00 Intake Total 1736 ml 1686 ml Output Total 1000 ml 800 ml Balance 736 ml 886 ml IV Total 1736 ml 1686 ml Output Urine Total 1000 ml 800 ml Dressing: other Wound: other Drains: other Cardiovascular: RSR Respiratory: decreased breath sounds Abdomen: soft, non-tender, present bowel sounds Extremities: no cyanosis Laboratory Tests Test 11/13/19 02:30 11/13/19 03:40 11/13/19 04:00 Arterial Blood pH 7.346 (7.350-7.450) Arterial Blood Partial Pressure CO2 43.4 mmHg (35.0-45.0) Arterial Blood Partial Pressure O2 93.4 mmHg (75.0-100.0) Arterial Blood HCO3 23.2 mmol/L (22.0-26.0) Arterial Blood Oxygen Saturation 96.9 % (95-100) Arterial Blood Base Excess -2.3 (-2-2) L Sergio Test Positive Sodium Level 141 MMOL/L (136-145) Potassium Level 3.7 MMOL/L (3.5-5.1) Chloride Level 106 MMOL/L (98-107) Carbon Dioxide Level 28 MMOL/L (21-32) Anion Gap 7 mmol/L (5-15) Blood Urea Nitrogen 17 mg/dL (7-18) Creatinine 1.0 MG/DL (0.55-1.30) Estimat Glomerular Filtration Rate 54.0 mL/min (>60) Glucose Level 151 MG/DL (74-106) H Calcium Level 7.6 MG/DL (8.5-10.1) L Phosphorus Level 2.5 MG/DL (2.5-4.9) Magnesium Level 1.7 MG/DL (1.8-2.4) L Urine Color Pale yellow Urine Appearance Slightly cloudy Urine pH 6 (4.5-8.0) Urine Specific [place] 1.015 (1.005-1.035) Urine Protein 3+ (NEGATIVE) H Urine Glucose (UA) Negative (NEGATIVE) Urine Ketones 1+ (NEGATIVE) H Urine Blood 5+ (NEGATIVE) H Urine Nitrite Negative (NEGATIVE) Urine Bilirubin Negative (NEGATIVE) Urine Urobilinogen Normal MG/DL (0.0-1.0) Urine Leukocyte Esterase 2+ (NEGATIVE) H Urine RBC 10-15 /HPF (0 - 2) H Urine WBC 5-10 /HPF (0 - 2) H Urine Squamous Epithelial Cells Few /LPF (NONE/OCC) Urine Bacteria Few /HPF (NONE) Urine Yeast Moderate /HPF (NONE) H Plan Problems: (1) Decubitus skin ulcer Assessment & Plan: Pt presented on admission with multiple Pressure Injuries, and contractures. Large Soft Mass noted to lateral R chest ,just inferior to Breast.Soft mass that uis violaceous and denuded. Unstageable Pressure injury R thoracic. Wound presents as partially opened DTPI( L)6cm x (W)8.5cm. 95% Soft eschar flap,5% dee. Marginal erythema along borders In addition scattered linear and purple area periwound. Full thickness stage 4 Sacral Pressure Injury(L)9.3cm x (W)8.7cm. Base of wound is 95% necrotic,but bone is palpable.Mild odor noted. No exudate noted. Non-blanching erythema periwound. Unstageable Pressure Injury R trochanter(L)3.5cm x (W)4.2cm. Base of wound is 90 % soft eschar, 10% pink epithelial. Edges adherent to base of wound .No erythema induration or fluctuance periwound. Unstageable Pressure injury R Ischium(L)3.5cm x (W)2.5cm. Dry eschar at base of wound, edges are adherent with surrounding pink epithelial. No erythema or induration periwound. DTPI L trochanter(L)4cm x (W)1cm. Stable dry eschar L Hallux(L)1.6cm x (W)2cm.NO erythema fluctuance or induration periwound. L 1st metatarsal TMA noted. Stable dry eschar distal/lateral L foot (L)1.5cm x (W)3cm. No erythema, induration or fluctuance periwound. DTPI noted to plantar L foot.(L)0.9cm x (W)0.9cm. Base of wound is fluctuant, purple with maroon borders. Unstageable Pressure injury L lateral Malleolus. Stable dry eschar noted.No erythema or induration periwound. L heel is boggy with non-blanching erythema. Unstageable Pressure injury R Hallux and plantar aspect(L)3.5cm x (W)3.4cm. Soft eschar at base of wound with marginal erythema along borders. R heel is boggy with Non-Blanching erythema. Unstageable Presure injury distal/Lateral R foot . Stable dry eschar noted . No erythema of fluctuance periwound. Tx.Plan: Cleanse Sacral Wound with Saline. Loosely pack with Therahoney impregnated Kerlix.Applpy Moisture Barrier Paste periwound. Cover with Optifoam drsg. Change Daily and prn. Cleanse Soft Mass R chest with Saline. Cover with Optifoam drsg. Change Daily and prn. Cleanse wounds R trochanter, R Ischium with Saline. Apply Moisture Barrier Paste.Cover with Optifoam drsg. Change every 3 days and prn. Apply Moisture Barrier to L trochanter. Cvoer with Optifoam drsg. Change every 3 days and prn. Apply Betadine to wounds R and L foot. Cover each wound with Optifoam drsg. Changee very 3 days and prn. Apply Cavilon Skin Barrier to both heels. Cover each heel with Optifoam drsg. Change every 7 days and prn. APM/ANA Mattress overlay. turn q2h nutritional optimization (2) Malnutrition Assessment & Plan: pending g tube DAILY ESTIMATED NEEDS: Needs based on Critical care, wounds, 64kg 22-28 kcals/kg 4403-1006 total kcals 1.25-2 g protein/kg 80-128 g total protein 25-30 mL/kg 9702-1292 total fluid mLs NUTRITION DIAGNOSIS: Swallowing difficulty r/t respiratory status as evidenced by pt is trach and peg dep, currently NPO, on TPN. CURRENT TF:NPO, on TPN ENTERAL NUTRITION RECOMMENDATIONS: VITAL AF 1.2 @ 55ml/hr x24 hrs to provide 1320ml, 1584 kcal, 99g pro, 1071ml free H2O - Post PEJ placement, initiate Vital AF 1.2 @ 25ml/hr x 6hrs, advance 10ml q 4- 6 hrs as tolerated to goal. - Flush per MD Jacqueline SCHNEIDER over 30 degrees PARENTERAL NUTRITION RECOMMENDATIONS: D/AA Rate: 70 IL Rate: 8 Total Rate: 78 Volume: 1872 % Dextrose: 18 % AA: 5.5 Energy (kcals/kg): 1781 Protein (g/kg protein): 92 Nonprotein KCALS: 1412 GIR (mg CHO/kg/min): 3.3 % Fat KCALS: 22 NCP: N Ratio: 96:1 TPN Comment: - Maintain current TPN: -> D18%, AA 5.5% @70ml/hr w/ 20%IL @8ml/hr - all 3:1 - TF at goal meets 100% est needs, provides 28 kcal/kg and 1.4g/kg pro. - GIR<5 - IL <30% ADDITIONAL RECOMMENDATIONS: 1) Per SNF: 65 inches (5'5"); 141 lbs (64.1kg) 2) Wound care: add MEIR BID via GT w/ TF order 3) Monitor lytes, BG, and LFT's on TPN - check phos and mag (not checked since TPN initiation) (3) Anemia Assessment & Plan: transfused trend labs no active bleeding stool study GI eval (4) UTI (urinary tract infection) (5) Tracheostomy dependence Assessment & Plan: Findings: The left hemidiaphragm is elevated. Atelectatic changes are present in the left lung base. There is minimal right basilar atelectasis. No definite infiltrates. There is a tracheostomy. Impression: Elevated left hemidiaphragm with considerable left basilar atelectasis. Less extensive right basilar atelectasis. Inspiration is suboptimal. Interim development of opacity of the left mid and lower lung. The left hemidiaphragm is obscured. Right lung is probably clear , although there is crowding of bronchovascular lung volumes. Tracheostomy remains. Impression: Since 11/01/2019, interim development of left mid and lower lung infiltrates versus edema and possibly pleural fluid Juan Houser Nov 13, 2019 14:54
[2019-11-13] MEDS: DAPTOmycin 500 MG in NS 50 ML IV SCH (15:54)
[2019-11-13 16:00] VITALS: BP 100/44
--- NOTE | 2019-11-13 19:30 | NUR ---
HAND-OFF: Report given to Ioana Cintron RN.
--- NOTE | 2019-11-13 19:31 | NUR ---
NURSE NOTES: received pt from Edis RN, pt is awake and resting on the bed. obtunded. pt's trach in place, no SOB noted, O2sat is at 100%. old Gtube sites noted. right upper arm PICC line is intact, clean, and patent. Bailey cath is draining well with gravity. TPN is running at 78ml/hr. call light within reach. bed at the lowest position, alarmed, and locked. will continue to monitor pt with plan of care.
--- NOTE | 2019-11-13 19:42 | Infectious Diseases Prog Note ---
Assessment/Plan Assessment/Plan ASSESSMENT AND PLAN: 1. 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 fungemia, TPN - daptomycin (11/02/19), polymyxin, meropenem, levofloxacin added for pseudomonas cvg - micafungin added - surveillance blood cultures ordered - TTE - no vegetations identified - monitor labs and chest x-ray - wound management per surgery - leukocytosis maybe secondary to AML blast crises/flare - please see multiple orders 2. Trach, vent respiratory failure. 3. Dysphagia, G-tube. 4. Anemia. 5. Thrombocytopenia. 6. Leukocytosis. 7. Malnutrition. 8. Ovarian mass with neoplasm. 9. Parkinson's. 10. Dementia. 11. Skin care per Surgery and protocol. 12. Allergies to penicillin, vancomycin. 13. Social history is negative. 14. Family history is noncontributory. 15. MAR was noted. 16. Case was discussed with RN. 17. Continue treatment per primary consultants. 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 Subjective Constitutional: Reports: fever, other - s/p trach Respiratory: Reports: shortness of breath Cardiovascular: Reports: other - no pressors Gastrointestinal/Abdominal: Denies: nausea, vomiting Genitourinary: Reports: other - + dong Psychiatric: Denies: depression Skin: Denies: rash Hematologic: Reports: bleeding - ear per RN - left Musculoskeletal: Reports: other - NA Allergies: Coded Allergies: PENICILLINS (Verified Allergy, Unknown, 11/01/19) VANCOMYCIN (Verified Allergy, Unknown, 11/01/19) Uncoded Allergies: PENICI (Allergy, Unknown, 11/01/19) Objective Vital Signs Last 24 Hour Vital Signs Date Time Temp Pulse Resp B/P (MAP) Pulse Ox O2 Delivery O2 Flow Rate FiO2 11/13/19 16:00 40 11/13/19 16:00 98.4 106 22 100/44 (62) 100 11/13/19 16:00 Mechanical Ventilator 11/13/19 15:59 107 11/13/19 14:45 103 23 40 11/13/19 12:00 40 11/13/19 12:00 101 11/13/19 12:00 Mechanical Ventilator 11/13/19 12:00 98.1 104 21 123/65 (84) 100 11/13/19 11:26 104 21 40 11/13/19 08:00 104 11/13/19 08:00 98.8 102 22 102/56 (71) 100 11/13/19 08:00 Mechanical Ventilator 11/13/19 08:00 40 11/13/19 07:45 102 21 40 11/13/19 04:00 40 11/13/19 04:00 100 11/13/19 04:00 Mechanical Ventilator 11/13/19 04:00 97.7 103 22 106/54 (71) 100 11/13/19 04:00 Mechanical Ventilator 11/13/19 03:10 91 22 40 11/13/19 00:00 Mechanical Ventilator 11/13/19 00:00 40 11/13/19 00:00 109 11/13/19 00:00 97.9 109 21 106/60 (75) 100 11/12/19 23:35 95 23 40 11/12/19 23:00 99.8 11/12/19 20:00 Mechanical Ventilator 11/12/19 20:00 101.8 109 21 108/54 (72) 100 11/12/19 20:00 110 11/12/19 20:00 40 11/12/19 19:36 111 25 40 Height (Feet): 5 Height (Inches): 3.00 Weight (Pounds): 160 General Appearance: no acute distress, other - opens eyes HEENT: normocephalic, atraumatic, anicteric, no JVD, status post trach Respiratory/Chest: crackles/rales, rhonchi - bilaterally Cardiovascular: normal rate, regular rhythm, no gallop/murmur, no JVD Abdomen: normal bowel sounds, soft, non tender, no organomegaly, non distended Genitourinary: other - + dong - urine slt cloudy Extremities: no cyanosis Skin: no rash Neurologic/Psychiatric: motor weakness, other - opens eyes Lymphatic: no neck adenopathy Musculoskeletal: no effusion Objective Chest x-ray - 11/05/19 - IMPRESSION: 1. Interval placement of right PICC line tip to the mid SVC. 2. Hypoventilatory lungs. Bibasilar atelectasis/consolidations, similar to prior study. 3. Probable bilateral pleural effusions. Chest x-ray - 11/07/19- Procedure: XRAY Chest 1v Procedure: XRAY Chest 1v Reason for study: Shortness of breath. Comparison films: 11/05/2019. FINDINGS: Tracheostomy and right PICC line remain in place. There is limited inspiration with bibasilar densities unchanged. Cardiac and mediastinal silhouette are within normal limits. No large effusion seen The bony thorax appear unremarkable. IMPRESSION: NO SIGNIFICANT CHANGE COMPARED TO PREVIOUS EXAM. CT abdomen and pelvis: IMPRESSION: BILATERAL SMALL PLEURAL EFFUSIONS AND DEPENDENT INFILTRATES. HUGE SEPTATED CYSTIC MASS ARISING FROM THE PELVIS EXTENDING INTO THE ABDOMEN MOST LIKELY OF OVARIAN ORIGIN. SMALL AMOUNT OF FREE FLUID ADJACENT TO THE HEPATIC AND SPLENIC EDGE WELL IN THE PELVIS. LEFT RENAL STONE. POSSIBLE SLUDGE OR NONCALCIFIED STONES LAYERING IN THE GALLBLADDER. LEFT LOWER QUADRANT STOMA. SEVERE DEGENERATIVE CHANGES AND DEXTROSCOLIOSIS OF THE SPINE. ANASARCA. Abdominal US: IMPRESSION: 1. Sludge and possible small stones in the gallbladder. No gallbladder wall thickening or pericholecystic fluid. 2. Ascites. 3. Small right pleural effusion. Chest x-ray - 11/10/19 - Procedure: XRAY Chest 1v Procedure: XRAY Chest 1v Reason for study: Reason For Exam: SOB Comparison films: 11/07/2019. FINDINGS: Tracheostomy remains in place. Basilar infiltrates not significantly changed. Small effusions unchanged. Cardiac silhouette stable. The bony thorax appear unremarkable. IMPRESSION: NO SIGNIFICANT CHANGE COMPARED TO PREVIOUS EXAM Microbiology Date/Time Source Procedure Growth Status 11/11/19 18:45 Blood Blood Culture - Preliminary Gram Negative Sabas Resulted 11/06/19 10:04 Sputum Induced Gram Stain - Final Resulted 11/06/19 10:04 Sputum Culture - Preliminary Providencia Stuartii K.pneumoniae Carbapenem Resist Pseudomonas Aeruginosa Resulted 11/11/19 17:30 Indwelling Cath Urine Culture - Preliminary YEAST Resulted 11/01/19 16:30 Rectum VRE Culture - Final Enterococcus Faecalis - Vre Complete Microbiology Date/Time Source Procedure Growth Status 11/11/19 18:45 Blood Blood Culture - Preliminary Gram Negative Sabas Resulted 11/11/19 17:40 Blood Blood Culture - Preliminary NO GROWTH AFTER 24 HOURS Resulted 11/11/19 17:30 Indwelling Cath Urine Culture - Preliminary YEAST Resulted Labs Test 11/11/19 03:15 11/11/19 17:30 11/12/19 05:15 11/13/19 02:30 White Blood Count 69.2 K/UL (4.8-10.8) 78.4 K/UL (4.8-10.8) Red Blood Count 3.04 M/UL (4.20-5.40) 2.99 M/UL (4.20-5.40) Hemoglobin 8.5 G/DL (12.0-16.0) 8.5 G/DL (12.0-16.0) Hematocrit 28.3 % (37.0-47.0) 27.1 % (37.0-47.0) Mean Corpuscular Volume 93 FL (80-99) 91 FL (80-99) Mean Corpuscular Hemoglobin 28.1 PG (27.0-31.0) 28.3 PG (27.0-31.0) Mean Corpuscular Hemoglobin Concent 30.2 G/DL (32.0-36.0) 31.3 G/DL (32.0-36.0) Red Cell Distribution Width 16.6 % (11.6-14.8) 15.8 % (11.6-14.8) Platelet Count 42 K/UL (150-450) 39 K/UL (150-450) Mean Platelet Volume 16.6 FL (6.5-10.1) 13.7 FL (6.5-10.1) Neutrophils (%) (Auto) % (45.0-75.0) % (45.0-75.0) Lymphocytes (%) (Auto) % (20.0-45.0) % (20.0-45.0) Monocytes (%) (Auto) % (1.0-10.0) % (1.0-10.0) Eosinophils (%) (Auto) % (0.0-3.0) % (0.0-3.0) Basophils (%) (Auto) % (0.0-2.0) % (0.0-2.0) Differential Total Cells Counted 100 100 Neutrophils % (Manual) 5 % (45-75) 5 % (45-75) Lymphocytes % (Manual) 16 % (20-45) 16 % (20-45) Monocytes % (Manual) 33 % (1-10) 20 % (1-10) Eosinophils % (Manual) 0 % (0-3) 2 % (0-3) Basophils % (Manual) 0 % (0-2) 0 % (0-2) Blast Cells % 46 % (0-0) 57 % (0-0) Band Neutrophils 0 % (0-8) 0 % (0-8) Platelet Estimate Decreased Decreased Platelet Morphology Normal Normal Polychromasia 1+ Hypochromasia 2+ 2+ Anisocytosis 1+ 1+ Sodium Level 140 MMOL/L (136-145) 140 MMOL/L (136-145) Potassium Level 2.8 MMOL/L (3.5-5.1) 4.2 MMOL/L (3.5-5.1) Chloride Level 107 MMOL/L (98-107) 108 MMOL/L (98-107) Carbon Dioxide Level 24 MMOL/L (21-32) 25 MMOL/L (21-32) Anion Gap 9 mmol/L (5-15) 8 mmol/L (5-15) Blood Urea Nitrogen 5 mg/dL (7-18) 12 mg/dL (7-18) Creatinine 1.0 MG/DL (0.55-1.30) 0.8 MG/DL (0.55-1.30) Estimat Glomerular Filtration Rate 54.0 mL/min (>60) > 60 mL/min (>60) Glucose Level 171 MG/DL (74-106) 166 MG/DL (74-106) Calcium Level 7.3 MG/DL (8.5-10.1) 7.5 MG/DL (8.5-10.1) Total Bilirubin 0.3 MG/DL (0.2-1.0) 0.2 MG/DL (0.2-1.0) Aspartate Amino Transf (AST/SGOT) 26 U/L (15-37) 26 U/L (15-37) Alanine Aminotransferase (ALT/SGPT) 9 U/L (12-78) < 6 U/L (12-78) Alkaline Phosphatase 41 U/L (46-116) 44 U/L (46-116) Total Protein 5.0 G/DL (6.4-8.2) 5.1 G/DL (6.4-8.2) Albumin 1.6 G/DL (3.4-5.0) 1.6 G/DL (3.4-5.0) Globulin 3.4 g/dL 3.5 g/dL Albumin/Globulin Ratio 0.5 (1.0-2.7) 0.5 (1.0-2.7) Urine Color Yellow Urine Appearance Very cloudy Urine pH 6 (4.5-8.0) Urine Specific [place] 1.015 (1.005-1.035) Urine Protein 3+ (NEGATIVE) Urine Glucose (UA) Negative (NEGATIVE) Urine Ketones 1+ (NEGATIVE) Urine Blood 5+ (NEGATIVE) Urine Nitrite Negative (NEGATIVE) Urine Bilirubin Negative (NEGATIVE) Urine Urobilinogen Normal MG/DL (0.0-1.0) Urine Leukocyte Esterase 3+ (NEGATIVE) Urine RBC 30-40 /HPF (0 - 2) Urine WBC 20-30 /HPF (0 - 2) Urine Squamous Epithelial Cells Many /LPF (NONE/OCC) Urine Bacteria Many /HPF (NONE) Urine Granular Casts 2-4 /LPF (NONE) Urine Yeast Many /HPF (NONE) Magnesium Level 1.3 MG/DL (1.8-2.4) Total Creatine Kinase 12 U/L (26-308) Arterial Blood pH 7.346 (7.350-7.450) Arterial Blood Partial Pressure CO2 43.4 mmHg (35.0-45.0) Arterial Blood Partial Pressure O2 93.4 mmHg (75.0-100.0) Arterial Blood HCO3 23.2 mmol/L (22.0-26.0) Arterial Blood Oxygen Saturation 96.9 % (95-100) Arterial Blood Base Excess -2.3 (-2-2) Sergio Test Positive Test 11/13/19 03:40 11/13/19 04:00 Sodium Level 141 MMOL/L (136-145) Potassium Level 3.7 MMOL/L (3.5-5.1) Chloride Level 106 MMOL/L (98-107) Carbon Dioxide Level 28 MMOL/L (21-32) Anion Gap 7 mmol/L (5-15) Blood Urea Nitrogen 17 mg/dL (7-18) Creatinine 1.0 MG/DL (0.55-1.30) Estimat Glomerular Filtration Rate 54.0 mL/min (>60) Glucose Level 151 MG/DL (74-106) Calcium Level 7.6 MG/DL (8.5-10.1) Phosphorus Level 2.5 MG/DL (2.5-4.9) Magnesium Level 1.7 MG/DL (1.8-2.4) Urine Color Pale yellow Urine Appearance Slightly cloudy Urine pH 6 (4.5-8.0) Urine Specific [place] 1.015 (1.005-1.035) Urine Protein 3+ (NEGATIVE) Urine Glucose (UA) Negative (NEGATIVE) Urine Ketones 1+ (NEGATIVE) Urine Blood 5+ (NEGATIVE) Urine Nitrite Negative (NEGATIVE) Urine Bilirubin Negative (NEGATIVE) Urine Urobilinogen Normal MG/DL (0.0-1.0) Urine Leukocyte Esterase 2+ (NEGATIVE) Urine RBC 10-15 /HPF (0 - 2) Urine WBC 5-10 /HPF (0 - 2) Urine Squamous Epithelial Cells Few /LPF (NONE/OCC) Urine Bacteria Few /HPF (NONE) Urine Yeast Moderate /HPF (NONE) Laboratory Tests Test 11/13/19 02:30 11/13/19 03:40 11/13/19 04:00 Arterial Blood pH 7.346 (7.350-7.450) Arterial Blood Partial Pressure CO2 43.4 mmHg (35.0-45.0) Arterial Blood Partial Pressure O2 93.4 mmHg (75.0-100.0) Arterial Blood HCO3 23.2 mmol/L (22.0-26.0) Arterial Blood Oxygen Saturation 96.9 % (95-100) Arterial Blood Base Excess -2.3 (-2-2) L Sergio Test Positive Sodium Level 141 MMOL/L (136-145) Potassium Level 3.7 MMOL/L (3.5-5.1) Chloride Level 106 MMOL/L (98-107) Carbon Dioxide Level 28 MMOL/L (21-32) Anion Gap 7 mmol/L (5-15) Blood Urea Nitrogen 17 mg/dL (7-18) Creatinine 1.0 MG/DL (0.55-1.30) Estimat Glomerular Filtration Rate 54.0 mL/min (>60) Glucose Level 151 MG/DL (74-106) H Calcium Level 7.6 MG/DL (8.5-10.1) L Phosphorus Level 2.5 MG/DL (2.5-4.9) Magnesium Level 1.7 MG/DL (1.8-2.4) L Urine Color Pale yellow Urine Appearance Slightly cloudy Urine pH 6 (4.5-8.0) Urine Specific [place] 1.015 (1.005-1.035) Urine Protein 3+ (NEGATIVE) H Urine Glucose (UA) Negative (NEGATIVE) Urine Ketones 1+ (NEGATIVE) H Urine Blood 5+ (NEGATIVE) H Urine Nitrite Negative (NEGATIVE) Urine Bilirubin Negative (NEGATIVE) Urine Urobilinogen Normal MG/DL (0.0-1.0) Urine Leukocyte Esterase 2+ (NEGATIVE) H Urine RBC 10-15 /HPF (0 - 2) H Urine WBC 5-10 /HPF (0 - 2) H Urine Squamous Epithelial Cells Few /LPF (NONE/OCC) Urine Bacteria Few /HPF (NONE) Urine Yeast Moderate /HPF (NONE) H Current Medications Medications (Trade) Dose Ordered Sig/Inna Route PRN Reason Start Time Stop Time Status Last Admin Dose Admin Acetaminophen (Tylenol) 650 mg Q4H PRN GT fever 100.4, mild pain 11/10/19 10:00 12/01/19 23:14 Acetaminophen (Tylenol) 650 mg Q4H PRN RECTAL Temp >100.5 11/08/19 21:30 12/08/19 21:29 11/12/19 22:30 Albuterol/ Ipratropium (Albuterol/ Ipratropium) 3 ml Q4H PRN HHN sob 11/11/19 09:40 11/16/19 09:39 Allopurinol (Zyloprim) 100 mg TID GT 11/02/19 09:00 12/02/19 08:59 11/08/19 08:42 Ascorbic Acid (Vitamin C) 500 mg DAILY GT 11/02/19 09:00 12/02/19 08:59 11/08/19 08:42 Carbidopa/Levodopa (Sinemet 25/100) 2 tab QID GT 11/02/19 09:00 12/02/19 08:59 11/08/19 08:42 Chlorhexidine Gluconate (Josefa-Hex 2%) 1 applic DAILY@2000 TOPIC 11/03/19 20:00 02/01/20 19:59 11/12/19 20:19 Daptomycin 500 mg/ Sodium Chloride 50 ml @ 100 mls/hr Q24H IV 11/08/19 16:00 11/15/19 15:59 11/13/19 15:54 Dextrose 1,000 ml @ 0 mls/hr Q24H PRN IV PN interrupted or unavailable 11/09/19 20:00 12/09/19 19:59 Dextrose (Dextrose 50%) 25 ml Q30M PRN IV Hypoglycemia 11/09/19 20:00 02/07/20 19:59 Dextrose (Dextrose 50%) 50 ml Q30M PRN IV Hypoglycemia 11/09/19 20:00 02/07/20 19:59 Docusate Sodium (Colace) 100 mg DAILY GT 11/02/19 09:00 12/02/19 08:59 11/08/19 08:41 Donepezil HCl (Aricept) 10 mg QHS GT 11/02/19 21:00 12/02/19 20:59 11/07/19 21:35 Entacapone (Comtan) 400 mg THREE TIMES A DAY ORAL 11/10/19 13:00 12/02/19 17:59 Fat Emulsion Intravenous 192 ml/Amino Acids/ Electrolytes/ Dextrose 1,872 ml @ 78 mls/hr Q24H IV 11/11/19 20:00 12/11/19 19:59 11/12/19 20:21 Insulin Aspart (NovoLOG) Q6HR SUBQ 11/06/19 12:00 02/04/20 11:59 11/13/19 11:45 Levofloxacin 50 ml @ 50 mls/hr Q24H IVPB 11/13/19 09:00 11/20/19 08:59 11/13/19 09:29 Meropenem 1 gm/ Sodium Chloride 100 ml @ 200 mls/hr Q8HR IVPB 11/10/19 15:00 11/15/19 14:59 11/13/19 13:08 Metoclopramide HCl (Reglan) 5 mg Q6H PRN IVP nausea or vomiting 11/01/19 23:15 12/01/19 23:14 11/02/19 12:51 Multivitamins (Multivitamins W/ Minerals 15ml Liquid) 15 ml DAILY GT 11/02/19 09:00 12/02/19 08:59 11/08/19 08:42 Ondansetron HCl (Zofran) 4 mg Q4H PRN IVP Nausea & Vomiting 11/01/19 23:15 12/01/19 23:14 Pantoprazole (Protonix) 40 mg DAILY IVP 11/05/19 09:00 12/05/19 08:59 11/13/19 08:11 Polyethylene Glycol (Miralax) 17 gm DAILY PRN GT Constipation 11/02/19 08:30 12/02/19 07:59 Polymyxin B Sulfate 041002 units/Dextrose 550 ml @ 550 mls/hr EVERY 12 HOURS IV 11/10/19 21:00 11/17/19 20:59 11/13/19 08:11 Quetiapine Fumarate (SEROqueL) 50 mg QHS GT 11/02/19 21:00 12/17/19 20:59 11/07/19 21:36 Sennosides (Senokot) 8.6 mg QHS GT 11/02/19 21:00 12/02/19 20:59 11/07/19 21:32 Zinc Oxide (Desitin) 1 applic FOUR TIMES A DAY TOPIC 11/04/19 14:00 12/04/19 13:59 11/13/19 18:13 González Yadav MD Nov 13, 2019 19:42
--- NOTE | 2019-11-13 19:49 | General Progress Note ---
Assessment/Plan Status: stable, unchanged Assessment/Plan: Assessment/Plan Status: stable, unchanged Assessment/Plan: 1. AML. 2. Respiratory failure with vent. 3. Dysphagia with G-tube. 4. Ovarian mass. 5. Advanced Parkinson disease. 6. Anemia requiring blood transfusion in the past. 7. Dementia. 8. Pancytopenia. unable to place GJT due to very large gastrocutaneous fibula on TPN adjust lytes PRN will need new GT when this site is closed Subjective Allergies: Coded Allergies: PENICILLINS (Verified Allergy, Unknown, 11/01/19) VANCOMYCIN (Verified Allergy, Unknown, 11/01/19) Uncoded Allergies: PENICI (Allergy, Unknown, 11/01/19) Subjective Above noted events noted patient off of TF Objective Last 24 Hour Vital Signs Date Time Temp Pulse Resp B/P (MAP) Pulse Ox O2 Delivery O2 Flow Rate FiO2 11/13/19 16:00 40 11/13/19 16:00 98.4 106 22 100/44 (62) 100 11/13/19 16:00 Mechanical Ventilator 11/13/19 15:59 107 11/13/19 14:45 103 23 40 11/13/19 12:00 40 11/13/19 12:00 101 11/13/19 12:00 Mechanical Ventilator 11/13/19 12:00 98.1 104 21 123/65 (84) 100 11/13/19 11:26 104 21 40 11/13/19 08:00 104 11/13/19 08:00 98.8 102 22 102/56 (71) 100 11/13/19 08:00 Mechanical Ventilator 11/13/19 08:00 40 11/13/19 07:45 102 21 40 11/13/19 04:00 40 11/13/19 04:00 100 11/13/19 04:00 Mechanical Ventilator 11/13/19 04:00 97.7 103 22 106/54 (71) 100 11/13/19 04:00 Mechanical Ventilator 11/13/19 03:10 91 22 40 11/13/19 00:00 Mechanical Ventilator 11/13/19 00:00 40 11/13/19 00:00 109 11/13/19 00:00 97.9 109 21 106/60 (75) 100 11/12/19 23:35 95 23 40 11/12/19 23:00 99.8 11/12/19 20:00 Mechanical Ventilator 11/12/19 20:00 101.8 109 21 108/54 (72) 100 11/12/19 20:00 110 11/12/19 20:00 40 Intake and Output 11/12/19 11/13/19 19:00 07:00 Intake Total 1736 ml 1686 ml Output Total 1000 ml 800 ml Balance 736 ml 886 ml IV Total 1736 ml 1686 ml Output Urine Total 1000 ml 800 ml Laboratory Tests 11/13/19 02:30: Arterial Blood pH 7.346L, Arterial Blood Partial Pressure CO2 43.4, Arterial Blood Partial Pressure O2 93.4, Arterial Blood HCO3 23.2, Arterial Blood Oxygen Saturation 96.9, Arterial Blood Base Excess -2.3L, Sergio Test Positive 11/13/19 03:40: Sodium Level 141, Potassium Level 3.7, Chloride Level 106, Carbon Dioxide Level 28, Anion Gap 7, Blood Urea Nitrogen 17, Creatinine 1.0, Estimat Glomerular Filtration Rate 54.0, Glucose Level 151H, Calcium Level 7.6L, Phosphorus Level 2.5, Magnesium Level 1.7L 11/13/19 04:00: Urine Color Pale yellow, Urine Appearance Slightly cloudy, Urine pH 6, Urine Specific [place] 1.015, Urine Protein 3+H, Urine Glucose (UA) Negative, Urine Ketones 1+H, Urine Blood 5+H, Urine Nitrite Negative, Urine Bilirubin Negative, Urine Urobilinogen Normal, Urine Leukocyte Esterase 2+H, Urine RBC 10-15H, Urine WBC 5-10H, Urine Squamous Epithelial Cells Few, Urine Bacteria Few, Urine Yeast ModerateH Height (Feet): 5 Height (Inches): 3.00 Weight (Pounds): 160 Objective debilitated [place] woman NCAT (+) trach coarse BS RR abd soft, (+) GT site with some mucoid drain no edema Faviola Weems MD Nov 13, 2019 19:49
[2019-11-13 20:00] VITALS: BP 105/57
[2019-11-13] MEDS: Dyna-Hex 2% Top Sol 2oz TOPIC SCH (20:11)
[2019-11-13] MEDS: FAT EMULSION 20% IV SCH (20:12)
[2019-11-13] MEDS: TPN IV SCH (20:12)
[2019-11-13] MEDS: Sennosides 8.6mg tab GT SCH (20:56)
[2019-11-13] MEDS: Donepezil 10mg tab GT SCH (20:56)
--- NOTE | 2019-11-13 20:56 | NUR ---
NURSE NOTES: Gtube medications not given because there is no Gtube at this time.
[2019-11-13] MEDS: Micafungin 100 MG in NS 110 ML IVPB SCH (21:22)
--- NOTE | 2019-11-13 23:29 | Internal Med Progress Note ---
Subjective Date of Service: Nov 12, 2019 Physician Name Fredrick Prince Attending Physician Fredrick Prince MD Current Medications Medications (Trade) Dose Ordered Sig/Inna Route PRN Reason Start Time Stop Time Status Last Admin Dose Admin Acetaminophen (Tylenol) 650 mg Q4H PRN GT fever 100.4, mild pain 11/10/19 10:00 12/01/19 23:14 Acetaminophen (Tylenol) 650 mg Q4H PRN RECTAL Temp >100.5 11/08/19 21:30 12/08/19 21:29 11/12/19 22:30 Albuterol/ Ipratropium (Albuterol/ Ipratropium) 3 ml Q4H PRN HHN sob 11/11/19 09:40 11/16/19 09:39 Allopurinol (Zyloprim) 100 mg TID GT 11/02/19 09:00 12/02/19 08:59 11/08/19 08:42 Ascorbic Acid (Vitamin C) 500 mg DAILY GT 11/02/19 09:00 12/02/19 08:59 11/08/19 08:42 Carbidopa/Levodopa (Sinemet 25/100) 2 tab QID GT 11/02/19 09:00 12/02/19 08:59 11/08/19 08:42 Chlorhexidine Gluconate (Josefa-Hex 2%) 1 applic DAILY@2000 TOPIC 11/03/19 20:00 02/01/20 19:59 11/13/19 20:11 Daptomycin 500 mg/ Sodium Chloride 50 ml @ 100 mls/hr Q24H IV 11/14/19 16:00 11/21/19 15:59 Dextrose 1,000 ml @ 0 mls/hr Q24H PRN IV PN interrupted or unavailable 11/09/19 20:00 12/09/19 19:59 Dextrose (Dextrose 50%) 25 ml Q30M PRN IV Hypoglycemia 11/09/19 20:00 02/07/20 19:59 Dextrose (Dextrose 50%) 50 ml Q30M PRN IV Hypoglycemia 11/09/19 20:00 02/07/20 19:59 Docusate Sodium (Colace) 100 mg DAILY GT 11/02/19 09:00 12/02/19 08:59 11/08/19 08:41 Donepezil HCl (Aricept) 10 mg QHS GT 11/02/19 21:00 12/02/19 20:59 11/07/19 21:35 Entacapone (Comtan) 400 mg THREE TIMES A DAY ORAL 11/10/19 13:00 12/02/19 17:59 Fat Emulsion Intravenous 192 ml/Amino Acids/ Electrolytes/ Dextrose 1,872 ml @ 78 mls/hr Q24H IV 11/11/19 20:00 12/11/19 19:59 11/13/19 20:12 Insulin Aspart (NovoLOG) Q6HR SUBQ 11/06/19 12:00 02/04/20 11:59 11/13/19 23:02 Levofloxacin 50 ml @ 50 mls/hr Q24H IVPB 11/13/19 09:00 11/20/19 08:59 11/13/19 09:29 Meropenem 1 gm/ Sodium Chloride 100 ml @ 200 mls/hr Q8HR IVPB 11/13/19 22:00 11/18/19 21:59 11/13/19 22:51 Metoclopramide HCl (Reglan) 5 mg Q6H PRN IVP nausea or vomiting 11/01/19 23:15 12/01/19 23:14 11/02/19 12:51 Micafungin Sodium 100 mg/Sodium Chloride 110 ml @ 110 mls/hr Q24H IVPB 11/13/19 21:00 11/20/19 20:59 11/13/19 21:22 Multivitamins (Multivitamins W/ Minerals 15ml Liquid) 15 ml DAILY GT 11/02/19 09:00 12/02/19 08:59 11/08/19 08:42 Ondansetron HCl (Zofran) 4 mg Q4H PRN IVP Nausea & Vomiting 11/01/19 23:15 12/01/19 23:14 Pantoprazole (Protonix) 40 mg DAILY IVP 11/05/19 09:00 12/05/19 08:59 11/13/19 08:11 Polyethylene Glycol (Miralax) 17 gm DAILY PRN GT Constipation 11/02/19 08:30 12/02/19 07:59 Polymyxin B Sulfate 225777 units/Dextrose 550 ml @ 550 mls/hr EVERY 12 HOURS IV 11/10/19 21:00 11/17/19 20:59 11/13/19 20:12 Quetiapine Fumarate (SEROqueL) 50 mg QHS GT 11/02/19 21:00 12/17/19 20:59 11/07/19 21:36 Sennosides (Senokot) 8.6 mg QHS GT 11/02/19 21:00 12/02/19 20:59 11/07/19 21:32 Zinc Oxide (Desitin) 1 applic FOUR TIMES A DAY TOPIC 11/04/19 14:00 12/04/19 13:59 11/13/19 20:30 Allergies: Coded Allergies: PENICILLINS (Verified Allergy, Unknown, 11/01/19) VANCOMYCIN (Verified Allergy, Unknown, 11/01/19) Uncoded Allergies: PENICI (Allergy, Unknown, 11/01/19) ROS Limited/Unobtainable: Yes All Systems: reviewed and negative except above Subjective non verbal, chronic trach GJ tube failed due to big whole on TPN worsening leukocytosis Objective Last Vital Signs Date Time Temp Pulse Resp B/P (MAP) Pulse Ox O2 Delivery O2 Flow Rate FiO2 11/13/19 20:00 Mechanical Ventilator 11/13/19 20:00 40 11/13/19 20:00 100.1 109 23 105/57 (73) 100 General Appearance: no apparent distress EENT: other - trach to vent Cardiovascular: normal rate, regular rhythm, systolic murmur Respiratory/Chest: rhonchi - bilaterally Abdomen: normal bowel sounds, non tender, soft Extremities: other - contrature Edema: pitting Neurologic: unresponsiveness, aphasia Skin: warm/dry Laboratory Tests Test 11/13/19 02:30 11/13/19 03:40 11/13/19 04:00 Arterial Blood pH 7.346 (7.350-7.450) Arterial Blood Partial Pressure CO2 43.4 mmHg (35.0-45.0) Arterial Blood Partial Pressure O2 93.4 mmHg (75.0-100.0) Arterial Blood HCO3 23.2 mmol/L (22.0-26.0) Arterial Blood Oxygen Saturation 96.9 % (95-100) Arterial Blood Base Excess -2.3 (-2-2) L Sergio Test Positive Sodium Level 141 MMOL/L (136-145) Potassium Level 3.7 MMOL/L (3.5-5.1) Chloride Level 106 MMOL/L (98-107) Carbon Dioxide Level 28 MMOL/L (21-32) Anion Gap 7 mmol/L (5-15) Blood Urea Nitrogen 17 mg/dL (7-18) Creatinine 1.0 MG/DL (0.55-1.30) Estimat Glomerular Filtration Rate 54.0 mL/min (>60) Glucose Level 151 MG/DL (74-106) H Calcium Level 7.6 MG/DL (8.5-10.1) L Phosphorus Level 2.5 MG/DL (2.5-4.9) Magnesium Level 1.7 MG/DL (1.8-2.4) L Urine Color Pale yellow Urine Appearance Slightly cloudy Urine pH 6 (4.5-8.0) Urine Specific [place] 1.015 (1.005-1.035) Urine Protein 3+ (NEGATIVE) H Urine Glucose (UA) Negative (NEGATIVE) Urine Ketones 1+ (NEGATIVE) H Urine Blood 5+ (NEGATIVE) H Urine Nitrite Negative (NEGATIVE) Urine Bilirubin Negative (NEGATIVE) Urine Urobilinogen Normal MG/DL (0.0-1.0) Urine Leukocyte Esterase 2+ (NEGATIVE) H Urine RBC 10-15 /HPF (0 - 2) H Urine WBC 5-10 /HPF (0 - 2) H Urine Squamous Epithelial Cells Few /LPF (NONE/OCC) Urine Bacteria Few /HPF (NONE) Urine Yeast Moderate /HPF (NONE) H Microbiology Date/Time Source Procedure Growth Status 11/11/19 18:45 Blood Blood Culture - Preliminary Gram Negative Sabas Resulted 11/11/19 17:40 Blood Blood Culture - Preliminary NO GROWTH AFTER 24 HOURS Resulted 11/11/19 17:30 Indwelling Cath Urine Culture - Preliminary YEAST Resulted Intake and Output 11/12/19 11/13/19 19:00 07:00 Intake Total 1736 ml 1686 ml Output Total 1000 ml 800 ml Balance 736 ml 886 ml IV Total 1736 ml 1686 ml Output Urine Total 1000 ml 800 ml Objective unable to place J tube . 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 d/w GI PGE/J in few week unable to put PEG J tube due to large whole KCL IV replete prn s/p Mg sulfate IV 2 gram leukocytosis could be AML flare s/p 3 units PRBC tx so far IV abxper ID wound care f/u cx ID f/u electrolyte replete as needed enteral feeding ventilator pulm HHN dong pain control DNAR status Fredrick Prince MD Internal Medicine [phone] time spent today over 35 minutes stamp time on this note may NOT be the actual encounter time. Fredrick Prince MD Nov 13, 2019 23:28
--- NOTE | 2019-11-13 23:31 | Internal Med Progress Note ---
Subjective Date of Service: Nov 13, 2019 Physician Name Fredrick Prince Attending Physician Fredrick Prince MD Current Medications Medications (Trade) Dose Ordered Sig/Inna Route PRN Reason Start Time Stop Time Status Last Admin Dose Admin Acetaminophen (Tylenol) 650 mg Q4H PRN GT fever 100.4, mild pain 11/10/19 10:00 12/01/19 23:14 Acetaminophen (Tylenol) 650 mg Q4H PRN RECTAL Temp >100.5 11/08/19 21:30 12/08/19 21:29 11/12/19 22:30 Albuterol/ Ipratropium (Albuterol/ Ipratropium) 3 ml Q4H PRN HHN sob 11/11/19 09:40 11/16/19 09:39 Allopurinol (Zyloprim) 100 mg TID GT 11/02/19 09:00 12/02/19 08:59 11/08/19 08:42 Ascorbic Acid (Vitamin C) 500 mg DAILY GT 11/02/19 09:00 12/02/19 08:59 11/08/19 08:42 Carbidopa/Levodopa (Sinemet 25/100) 2 tab QID GT 11/02/19 09:00 12/02/19 08:59 11/08/19 08:42 Chlorhexidine Gluconate (Josefa-Hex 2%) 1 applic DAILY@2000 TOPIC 11/03/19 20:00 02/01/20 19:59 11/13/19 20:11 Daptomycin 500 mg/ Sodium Chloride 50 ml @ 100 mls/hr Q24H IV 11/14/19 16:00 11/21/19 15:59 Dextrose 1,000 ml @ 0 mls/hr Q24H PRN IV PN interrupted or unavailable 11/09/19 20:00 12/09/19 19:59 Dextrose (Dextrose 50%) 25 ml Q30M PRN IV Hypoglycemia 11/09/19 20:00 02/07/20 19:59 Dextrose (Dextrose 50%) 50 ml Q30M PRN IV Hypoglycemia 11/09/19 20:00 02/07/20 19:59 Docusate Sodium (Colace) 100 mg DAILY GT 11/02/19 09:00 12/02/19 08:59 11/08/19 08:41 Donepezil HCl (Aricept) 10 mg QHS GT 11/02/19 21:00 12/02/19 20:59 11/07/19 21:35 Entacapone (Comtan) 400 mg THREE TIMES A DAY ORAL 11/10/19 13:00 12/02/19 17:59 Fat Emulsion Intravenous 192 ml/Amino Acids/ Electrolytes/ Dextrose 1,872 ml @ 78 mls/hr Q24H IV 11/11/19 20:00 12/11/19 19:59 11/13/19 20:12 Insulin Aspart (NovoLOG) Q6HR SUBQ 11/06/19 12:00 02/04/20 11:59 11/13/19 23:02 Levofloxacin 50 ml @ 50 mls/hr Q24H IVPB 11/13/19 09:00 11/20/19 08:59 11/13/19 09:29 Meropenem 1 gm/ Sodium Chloride 100 ml @ 200 mls/hr Q8HR IVPB 11/13/19 22:00 11/18/19 21:59 11/13/19 22:51 Metoclopramide HCl (Reglan) 5 mg Q6H PRN IVP nausea or vomiting 11/01/19 23:15 12/01/19 23:14 11/02/19 12:51 Micafungin Sodium 100 mg/Sodium Chloride 110 ml @ 110 mls/hr Q24H IVPB 11/13/19 21:00 11/20/19 20:59 11/13/19 21:22 Multivitamins (Multivitamins W/ Minerals 15ml Liquid) 15 ml DAILY GT 11/02/19 09:00 12/02/19 08:59 11/08/19 08:42 Ondansetron HCl (Zofran) 4 mg Q4H PRN IVP Nausea & Vomiting 11/01/19 23:15 12/01/19 23:14 Pantoprazole (Protonix) 40 mg DAILY IVP 11/05/19 09:00 12/05/19 08:59 11/13/19 08:11 Polyethylene Glycol (Miralax) 17 gm DAILY PRN GT Constipation 11/02/19 08:30 12/02/19 07:59 Polymyxin B Sulfate 185387 units/Dextrose 550 ml @ 550 mls/hr EVERY 12 HOURS IV 11/10/19 21:00 11/17/19 20:59 11/13/19 20:12 Quetiapine Fumarate (SEROqueL) 50 mg QHS GT 11/02/19 21:00 12/17/19 20:59 11/07/19 21:36 Sennosides (Senokot) 8.6 mg QHS GT 11/02/19 21:00 12/02/19 20:59 11/07/19 21:32 Zinc Oxide (Desitin) 1 applic FOUR TIMES A DAY TOPIC 11/04/19 14:00 12/04/19 13:59 11/13/19 20:30 Allergies: Coded Allergies: PENICILLINS (Verified Allergy, Unknown, 11/01/19) VANCOMYCIN (Verified Allergy, Unknown, 11/01/19) Uncoded Allergies: PENICI (Allergy, Unknown, 11/01/19) ROS Limited/Unobtainable: Yes All Systems: reviewed and negative except above Subjective non verbal, chronic trach GJ tube failed due to big whole on TPN worsening leukocytosis Objective Last Vital Signs Date Time Temp Pulse Resp B/P (MAP) Pulse Ox O2 Delivery O2 Flow Rate FiO2 11/13/19 20:00 Mechanical Ventilator 11/13/19 20:00 40 11/13/19 20:00 100.1 109 23 105/57 (73) 100 General Appearance: no apparent distress Neck: other - trach to vent Cardiovascular: normal rate, regular rhythm, systolic murmur Respiratory/Chest: rhonchi - left Abdomen: normal bowel sounds, non tender, soft Extremities: other - contractures Edema: pitting Neurologic: unresponsiveness, aphasia Skin: warm/dry, other - press sores Laboratory Tests Test 11/13/19 02:30 11/13/19 03:40 11/13/19 04:00 Arterial Blood pH 7.346 (7.350-7.450) Arterial Blood Partial Pressure CO2 43.4 mmHg (35.0-45.0) Arterial Blood Partial Pressure O2 93.4 mmHg (75.0-100.0) Arterial Blood HCO3 23.2 mmol/L (22.0-26.0) Arterial Blood Oxygen Saturation 96.9 % (95-100) Arterial Blood Base Excess -2.3 (-2-2) L Sergio Test Positive Sodium Level 141 MMOL/L (136-145) Potassium Level 3.7 MMOL/L (3.5-5.1) Chloride Level 106 MMOL/L (98-107) Carbon Dioxide Level 28 MMOL/L (21-32) Anion Gap 7 mmol/L (5-15) Blood Urea Nitrogen 17 mg/dL (7-18) Creatinine 1.0 MG/DL (0.55-1.30) Estimat Glomerular Filtration Rate 54.0 mL/min (>60) Glucose Level 151 MG/DL (74-106) H Calcium Level 7.6 MG/DL (8.5-10.1) L Phosphorus Level 2.5 MG/DL (2.5-4.9) Magnesium Level 1.7 MG/DL (1.8-2.4) L Urine Color Pale yellow Urine Appearance Slightly cloudy Urine pH 6 (4.5-8.0) Urine Specific [place] 1.015 (1.005-1.035) Urine Protein 3+ (NEGATIVE) H Urine Glucose (UA) Negative (NEGATIVE) Urine Ketones 1+ (NEGATIVE) H Urine Blood 5+ (NEGATIVE) H Urine Nitrite Negative (NEGATIVE) Urine Bilirubin Negative (NEGATIVE) Urine Urobilinogen Normal MG/DL (0.0-1.0) Urine Leukocyte Esterase 2+ (NEGATIVE) H Urine RBC 10-15 /HPF (0 - 2) H Urine WBC 5-10 /HPF (0 - 2) H Urine Squamous Epithelial Cells Few /LPF (NONE/OCC) Urine Bacteria Few /HPF (NONE) Urine Yeast Moderate /HPF (NONE) H Microbiology Date/Time Source Procedure Growth Status 11/11/19 18:45 Blood Blood Culture - Preliminary Gram Negative Sabas Resulted 11/11/19 17:40 Blood Blood Culture - Preliminary NO GROWTH AFTER 24 HOURS Resulted 11/11/19 17:30 Indwelling Cath Urine Culture - Preliminary YEAST Resulted Intake and Output 11/12/19 11/13/19 19:00 07:00 Intake Total 1736 ml 1686 ml Output Total 1000 ml 800 ml Balance 736 ml 886 ml IV Total 1736 ml 1686 ml Output Urine Total 1000 ml 800 ml Objective unable to place J tube . 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 d/w GI PGE/J in few week unable to put PEG J tube due to large whole KCL IV replete prn s/p Mg sulfate IV 2 gram leukocytosis could be AML flare s/p 3 units PRBC tx so far IV abxper ID wound care f/u cx ID f/u electrolyte replete as needed enteral feeding ventilator pulm HHN dong pain control DNAR status Fredrick Prince MD Internal Medicine [phone] time spent today over 35 minutes stamp time on this note may NOT be the actual encounter time. Fredrick Prince MD Nov 13, 2019 23:31
--- NOTE | 2019-11-13 23:40 | NUR ---
NURSE NOTES: per , give only 1 more extra Magnesium. not 2 bags of magnesium. because pt had 2g of magnesium in the AM of 11/13/2019. noted, and will carry on.
[2019-11-14] VITALS: BP 115/50
[2019-11-14 04:00] VITALS: BP 112/56
[2019-11-14] MEDS: NovoLOG Insulin Flexpen SUBQ SCH ×4 (05:44→23:11)
--- NOTE | 2019-11-14 06:00 | NUR ---
NURSE NOTES: oral care given, new gown provided, cleaned pt. repositioned pt Q 2hrs. call light within reach. no SOB noted. will monitor closely.
[2019-11-14 06:17] LABS: HEMATOCRIT 29.7 % (37.0-47.0); MEAN CORPUSCULAR VOLUME 93 FL (80-99); PLATELET COUNT 33 K/UL (150-450); RED CELL DISTRIBUTION WIDTH 15.9 % (11.6-14.8)
[2019-11-14 06:26] LABS: WHITE BLOOD COUNT 104.8 K/UL (4.8-10.8)
[2019-11-14 06:51] LABS: ALANINE AMINOTRANSFERASE < 6 U/L (12-78); ALBUMIN 1.8 G/DL (3.4-5.0); ALBUMIN/GLOBULIN RATIO 0.5 (1.0-2.7); ALKALINE PHOSPHATASE 58 U/L (46-116); ANION GAP 9 mmol/L (5-15); ASPARTATE AMINO TRANSFERASE 27 U/L (15-37); BILIRUBIN,TOTAL 0.3 MG/DL (0.2-1.0); BLOOD UREA NITROGEN 21 mg/dL (7-18); CALCIUM 7.8 MG/DL (8.5-10.1); CARBON DIOXIDE 25 MMOL/L (21-32); CHLORIDE 105 MMOL/L (98-107); CREATININE 0.9 MG/DL (0.55-1.30); POTASSIUM 4.4 MMOL/L (3.5-5.1); SODIUM 139 MMOL/L (136-145)
--- NOTE | 2019-11-14 07:15 | NUR ---
HAND-OFF: Report given to Laquita DUKE., pt remains stable condition, endorsed plan of care.
--- NOTE | 2019-11-14 07:20 | NUR ---
NURSE NOTES: Received report from SRIKANTH Hui. The patient is resting on the bed but has facial grimacing and mild labored breathing. Communication made mainly by facial expression and body movement. The patient is on mechanical ventilator on following ordered setting and tolerating well: Shiley 6, AC 20, TV 400, FiO2 40%, and PEEP 5 and oxygen saturation within normal range. The patient is on NPO and getting TPN per order due to leakage of G-tube. Old G tube site dressing intact and will change it. MATEO double lumen PICC line that is intact and patent and running TPN and TKO as ordered rate. Skin issue noted and dressing intact. The patient's bed in the lowest position, call light in reach, and fall and aspiration precaution reinforced. Will follow up the order and lab. Will continue plan of care. Addendum: 11/14/19 at 1956 by Maciel Graham RN Packing and dressing intact for L ear bleeding. Will closely monitor the patient. Will continue plan of care.
[2019-11-14 08:00] VITALS: BP 108/58
--- NOTE | 2019-11-14 08:12 | NUR ---
RD ASSESSMENT & RECOMMENDATIONS SEE CARE ACTIVITY FOR COMPLETE ASSESSMENT DAILY ESTIMATED NEEDS: Needs based on Critical care, wounds, 64kg 22-28 kcals/kg 2660-4127 total kcals 1.25-2 g protein/kg 80-128 g total protein 25-30 mL/kg 8370-1233 total fluid mLs NUTRITION DIAGNOSIS: Swallowing difficulty r/t respiratory status as evidenced by pt is trach and peg dep, currently NPO, on TPN, . CURRENT TF:NPO, on TPN (ENTERAL NUTRITION RECOMMENDATIONS: VITAL AF 1.2 @ 55ml/hr x24 hrs to provide 1320ml, 1584 kcal, 99g pro, 1071ml free H2O - Post PEJ placement, initiate Vital AF 1.2 @ 25ml/hr x 6hrs, advance 10ml q 4-6 hrs as tolerated to goal. - Flush per - HOB over 30 degrees) PARENTERAL NUTRITION RECOMMENDATIONS: D/AA Rate: 70 IL Rate: 8 Total Rate: 78 Volume: 1872 % Dextrose: 18 % AA: 5.5 Energy (kcals/kg): 1781 Protein (g/kg protein): 92 Nonprotein KCALS: 1412 GIR (mg CHO/kg/min): 3.3 % Fat KCALS: 22 NPC: N Ratio: 96:1 TPN Comment: - Maintain current TPN: -> D18%, AA 5.5% @70ml/hr w/ 20%IL @8ml/hr - all 3:1 - TF at goal meets 100% est needs, provides 28 kcal/kg and 1.4g/kg pro. - GIR<5 - IL <30% ADDITIONAL RECOMMENDATIONS: 1) Per SNF: 65 inches (5'5"); 141 lbs (64.1kg) 2) Wound care: add MEIR BID via GT w/ TF order 3) Monitor lytes, BG, and LFT's on TPN - check phos and mag (last Mag 1.7) .
[2019-11-14] MEDS: Entacapone 200mg tab ORAL SCH ×3 (09:00→15:53)
[2019-11-14] MEDS: Levodopa/Carbidopa 25/100 tab GT SCH ×4 (09:00→20:17)
[2019-11-14] MEDS: Multivitamins W/Minerals 15 ML UDC GT SCH (09:00)
[2019-11-14] MEDS: Ascorbic Acid 500mg tab GT SCH (09:00)
[2019-11-14] MEDS: Docusate 100mg/10ml Liq GT SCH (09:00)
[2019-11-14] MEDS: Allopurinol 100mg Tab GT SCH ×2 (09:00→12:58)
--- NOTE | 2019-11-14 09:00 | NUR ---
NURSE NOTES: Morning medications administered as ordered. Unable to administer G-tube route medication as the patient does not have G tube at this time. Will closely monitor the patient. Will continue plan of care.
--- NOTE | 2019-11-14 09:33 | Pulmonology Progress Note ---
Martha Chandler TILE DECORATOR 11/14/19 0933: Subjective ROS Limited/Unobtainable: Yes Constitutional: Reports: fever, other - s/p trach Gastrointestinal/Abdominal: Denies: nausea, vomiting Psychiatric: Denies: depression Skin: Denies: rash Musculoskeletal: Reports: other - NA Allergies: Coded Allergies: PENICILLINS (Verified Allergy, Unknown, 11/01/19) VANCOMYCIN (Verified Allergy, Unknown, 11/01/19) Uncoded Allergies: PENICI (Allergy, Unknown, 11/01/19) All Systems: reviewed and negative except above Subjective no signs of resp distress on current settings leukocytosis up to 104.8 fever last night , currently afebrile s/p EGD , removal of G tube 10/07 on TPN since 11/08 systolic BP in 90 Objective Last 24 Hour Vital Signs Date Time Temp Pulse Resp B/P (MAP) Pulse Ox O2 Delivery O2 Flow Rate FiO2 11/14/19 07:15 125 24 40 11/14/19 04:00 98.6 112 20 112/56 (74) 100 11/14/19 04:00 Mechanical Ventilator 11/14/19 04:00 119 11/14/19 04:00 40 11/14/19 03:58 116 26 40 11/14/19 00:00 99.9 117 23 115/50 (71) 100 11/14/19 00:00 40 11/14/19 00:00 Mechanical Ventilator 11/14/19 00:00 119 11/13/19 23:57 112 23 40 11/13/19 20:00 Mechanical Ventilator 11/13/19 20:00 40 11/13/19 20:00 100.1 109 23 105/57 (73) 100 11/13/19 20:00 110 11/13/19 19:46 108 24 40 11/13/19 16:00 40 11/13/19 16:00 98.4 106 22 100/44 (62) 100 11/13/19 16:00 Mechanical Ventilator 11/13/19 15:59 107 11/13/19 14:45 103 23 40 11/13/19 12:00 40 11/13/19 12:00 101 11/13/19 12:00 Mechanical Ventilator 11/13/19 12:00 98.1 104 21 123/65 (84) 100 11/13/19 11:26 104 21 40 Intake and Output 11/13/19 11/14/19 19:00 07:00 Intake Total 1005.5 ml 1796 ml Output Total 500 ml 1300 ml Balance 505.5 ml 496 ml IV Total 1005.5 ml 1796 ml Output Urine Total 500 ml 1300 ml Objective General Appearance: no apparent distress, bedridden, vent dependent chronically ill appearing female Lines, tubes and drains: peripheral HEENT: normocephalic, atraumatic, anicteric, status post trach - Shiley #6, secretions small amount, thick consistency, white color , Vent AC 400-40%-20 PEEP 5 Respiratory/Chest: no respiratory distress, few scattered rhonchi Cardiovascular/Chest: regular rhythm, RUE PICC intact Abdomen: non tender, soft, domewhat distended, dressing over old G tube site , dry Extremities: no edema, spastic LE Skin Exam: warm/dry, multiple DTI POA ( sacral, ankle foot, elbow) Neurologic: abnormal gait : bedridden, not responsive Musculoskeletal: atrophy - BLE Microbiology Date/Time Source Procedure Growth Status 11/11/19 18:45 Blood Blood Culture - Preliminary A.baumanii Complx - Mdr Resulted 11/11/19 17:40 Blood Blood Culture - Preliminary NO GROWTH AFTER 48 HOURS Resulted 11/13/19 04:00 Indwelling Cath Urine Culture - Preliminary Resulted 11/11/19 17:30 Indwelling Cath Urine Culture - Final Aundrea Tropicalis Complete Laboratory Tests 11/14/19 05:03: White Blood Count 104.8*H, Red Blood Count 3.20L, Hemoglobin 9.0L, Hematocrit 29.7L, Mean Corpuscular Volume 93, Mean Corpuscular Hemoglobin 28.3, Mean Corpuscular Hemoglobin Concent 30.4L, Red Cell Distribution Width 15.9H, Platelet Count 33L, Mean Platelet Volume , Neutrophils (%) (Auto) , Lymphocytes (%) (Auto) , Monocytes (%) (Auto) , Eosinophils (%) (Auto) , Basophils (%) (Auto ) , Neutrophils % (Manual) [Pending], Lymphocytes % (Manual) [Pending], Platelet Estimate [Pending], Platelet Morphology [Pending], Sodium Level 139, Potassium Level 4.4, Chloride Level 105, Carbon Dioxide Level 25, Anion Gap 9, Blood Urea Nitrogen 21H, Creatinine 0.9, Estimat Glomerular Filtration Rate > 60 , Glucose Level 150H, Calcium Level 7.8L, Magnesium Level 2.1, Total Bilirubin 0.3, Aspartate Amino Transf (AST/SGOT) 27, Alanine Aminotransferase (ALT/SGPT) < 6L, Alkaline Phosphatase 58, Total Protein 5.6L, Albumin 1.8L, Globulin 3.8, Albumin/Globulin Ratio 0.5L Current Medications Medications (Trade) Dose Ordered Sig/Inna Route PRN Reason Start Time Stop Time Status Last Admin Dose Admin Acetaminophen (Tylenol) 650 mg Q4H PRN GT fever 100.4, mild pain 11/10/19 10:00 12/01/19 23:14 Acetaminophen (Tylenol) 650 mg Q4H PRN RECTAL Temp >100.5 11/08/19 21:30 12/08/19 21:29 11/12/19 22:30 Albuterol/ Ipratropium (Albuterol/ Ipratropium) 3 ml Q4H PRN HHN sob 11/11/19 09:40 11/16/19 09:39 Allopurinol (Zyloprim) 100 mg TID GT 11/02/19 09:00 12/02/19 08:59 11/08/19 08:42 Ascorbic Acid (Vitamin C) 500 mg DAILY GT 11/02/19 09:00 12/02/19 08:59 11/08/19 08:42 Carbidopa/Levodopa (Sinemet 25/100) 2 tab QID GT 11/02/19 09:00 12/02/19 08:59 11/08/19 08:42 Chlorhexidine Gluconate (Josefa-Hex 2%) 1 applic DAILY@2000 TOPIC 11/03/19 20:00 02/01/20 19:59 11/13/19 20:11 Daptomycin 500 mg/ Sodium Chloride 50 ml @ 100 mls/hr Q24H IV 11/14/19 16:00 11/21/19 15:59 Dextrose 1,000 ml @ 0 mls/hr Q24H PRN IV PN interrupted or unavailable 11/09/19 20:00 12/09/19 19:59 Dextrose (Dextrose 50%) 25 ml Q30M PRN IV Hypoglycemia 11/09/19 20:00 02/07/20 19:59 Dextrose (Dextrose 50%) 50 ml Q30M PRN IV Hypoglycemia 11/09/19 20:00 02/07/20 19:59 Docusate Sodium (Colace) 100 mg DAILY GT 11/02/19 09:00 12/02/19 08:59 11/08/19 08:41 Donepezil HCl (Aricept) 10 mg QHS GT 11/02/19 21:00 12/02/19 20:59 11/07/19 21:35 Entacapone (Comtan) 400 mg THREE TIMES A DAY ORAL 11/10/19 13:00 12/02/19 17:59 Fat Emulsion Intravenous 192 ml/Amino Acids/ Electrolytes/ Dextrose 1,872 ml @ 78 mls/hr Q24H IV 11/11/19 20:00 12/11/19 19:59 11/13/19 20:12 Insulin Aspart (NovoLOG) Q6HR SUBQ 11/06/19 12:00 02/04/20 11:59 11/13/19 23:02 Levofloxacin 50 ml @ 50 mls/hr Q24H IVPB 11/13/19 09:00 11/20/19 08:59 11/13/19 09:29 Meropenem 1 gm/ Sodium Chloride 100 ml @ 200 mls/hr Q8HR IVPB 11/13/19 22:00 11/18/19 21:59 11/14/19 05:13 Metoclopramide HCl (Reglan) 5 mg Q6H PRN IVP nausea or vomiting 11/01/19 23:15 12/01/19 23:14 11/02/19 12:51 Micafungin Sodium 100 mg/Sodium Chloride 110 ml @ 110 mls/hr Q24H IVPB 11/13/19 21:00 11/20/19 20:59 11/13/19 21:22 Multivitamins (Multivitamins W/ Minerals 15ml Liquid) 15 ml DAILY GT 11/02/19 09:00 12/02/19 08:59 11/08/19 08:42 Ondansetron HCl (Zofran) 4 mg Q4H PRN IVP Nausea & Vomiting 11/01/19 23:15 12/01/19 23:14 Pantoprazole (Protonix) 40 mg DAILY IVP 11/05/19 09:00 12/05/19 08:59 11/13/19 08:11 Polyethylene Glycol (Miralax) 17 gm DAILY PRN GT Constipation 11/02/19 08:30 12/02/19 07:59 Polymyxin B Sulfate 112162 units/Dextrose 550 ml @ 550 mls/hr EVERY 12 HOURS IV 11/10/19 21:00 11/17/19 20:59 11/13/19 20:12 Quetiapine Fumarate (SEROqueL) 50 mg QHS GT 11/02/19 21:00 12/17/19 20:59 11/07/19 21:36 Sennosides (Senokot) 8.6 mg QHS GT 11/02/19 21:00 12/02/19 20:59 11/07/19 21:32 Zinc Oxide (Desitin) 1 applic FOUR TIMES A DAY TOPIC 11/04/19 14:00 12/04/19 13:59 11/13/19 20:30 Assessment/Plan Assessment/Plan ASSESSMENT Chronic respiratory failure ventilator dependent with tracheostomy status Sepsis Hypotension, possible early shock Bacteremia Pneumonia, possible aspiration UTI with Klebsiella 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), s/p 2 u PRBC Pancytopenia Leukocytosis Dysphagia, feeding by G-tube Advanced Parkinson's disease Severe protein calorie malnutrition Malfunctioning G tube ( inadvertently was removed), s/p EGD and removal of G tube Multiple DTI , POA Ovarian mass consistent with neoplasm AML Suspected COVID-19 infection ruled out Severe protein calorie malnutrition Functional quadriplegia E/lyte abnormalities PLAN OF CARE NAZARIO ventilator support, trach care, pulm toilet baseline ABG stable on current settings, keep as is and optimize as needed \ CXR 11/06 unchanged, SCX 11/05 Providencia , Klebsiella CRE, pseudomonas CXR 11/09 no change: Tracheostomy remains in place. Basilar infiltrates not significantly changed. Small effusions unchanged CXR 11/12 -Persistent low lung volumes, may be related to shallow inspiration. Bilateral patchy interstitial and air space opacities, most prominent in the left lung base. Stable to mildly worsened compared to the prior exam and concerning for pneumonia versus pulmonary edema. Possible small left pleural effusion. BCX 10/31 05/28 Staph haemolyticus, likely contaminant BCX 11/01 05/28 MRSA BCX 11/03 NGTD UCX Klebsiella CRE BCX 11/05 ACB MDR, Staph BCX 11/06 NGTD BCX 11/10 ACB MDR UCX 11/10 + Aundrea abx as per ID recs -Dapto, Poly and Meropenem, 11/12 added Levaquin and Micafungin leuk rising, -CT A/P 11/09 BILATERAL SMALL PLEURAL EFFUSIONS AND DEPENDENT INFILTRATES. HUGE SEPTATED CYSTIC MASS ARISING FROM THE PELVIS EXTENDING INTO THE ABDOMEN MOST LIKELY OF OVARIAN ORIGIN. SMALL AMOUNT OF FREE FLUID ADJACENT TO THE HEPATIC AND SPLENIC EDGE WELL IN THE PELVIS. LEFT RENAL STONE. POSSIBLE SLUDGE OR NONCALCIFIED STONES LAYERING IN THE GALLBLADDER. LEFT LOWER QUADRANT STOMA. SEVERE DEGENERATIVE CHANGES AND DEXTROSCOLIOSIS OF THE SPINE. ANASARCA. ECHO with pEF 55%, no discrete vegetation seen COVID 11/01 NGT, Venous Duplex BLE NGT, apply SCD, monitor HH with goal to keep Hgb >7, trend PLT severe pancytopenia likely 2 to AML leukocytosis 2 to sepsis and partially probably due to malignancy/AML and ovarian Ca IVF, replace lytes as needed, replace K today and check Mg monitor volumes asp precautions GT was inadvertently removed s/p replacement 11/03 by GI started TF still leaking plan replacement with GJ tube but cancelled due to leukocytosis s/p EGD 11/07, old G tube removed, unable to place a new one due to a large site , currently on TPN strict aspir precautions protein supplement as per RD recs continue SNF meds as per primary supportive care bowel regimen wound care as per surgeon recs discussed with RN to relay BP results to attending, unclear to what extent we will treat, given DNR/DNI status overall extremely grave prognosis , given multiple comorbidities, with superimposed AML and ovarian mass, DNR/DNI status case discussed and evaluated by supervising physician Jerrell Wilson MD 11/14/19 1412: Subjective Allergies: Coded Allergies: PENICILLINS (Verified Allergy, Unknown, 11/01/19) VANCOMYCIN (Verified Allergy, Unknown, 11/01/19) Uncoded Allergies: PENICI (Allergy, Unknown, 11/01/19) Assessment/Plan Assessment/Plan Patient seen and examined with TILE DECORATOR. Agree with above A&P as it reflects our joint deliberations. Low BP, likely actively dying. Possible transfer to ICU for pressors. Need to delineate GOC Martha Chandler TILE DECORATOR Nov 14, 2019 09:33 Jerrell Wilson MD Nov 14, 2019 14:12
[2019-11-14] MEDS: Pantoprazole Inj IVP SCH (09:38)
[2019-11-14] MEDS: Polymyxin B Sulfate 500,000 UNITS in D5W 500ml 550 ML IV SCH ×2 (09:38→21:48)
[2019-11-14] MEDS: Desitin Rash Paste TOPIC SCH ×4 (09:40→20:18)
--- NOTE | 2019-11-14 10:40 | NUR ---
NURSE NOTES: Hypotension of systolic blood pressure 80s noted. Notified to Dr. Prince. Dr. Prince ordered Albumin bolus x1, NS 1L bolus over 2 hours, and D5NS w/ 20mEq KCL @100mL/hr. Will administer as ordered. Will closely monitor the patient. Will continue plan of care.
--- NOTE | 2019-11-14 11:00 | NUR ---
NURSE NOTES: Dr. Prince ordered the patient to be transferred to ICU for levophed drip if SBP<70s. Notified to charge nurse. Will closely monitor the patient. Will continue plan of care.
--- NOTE | 2019-11-14 11:00 | NUR ---
NURSE NOTES: Rechecked the patient's blood pressure. Blood pressure of systolic 90-100s noted. Made charge nurse aware. Will closely monitor the patient. Will continue plan of care.
[2019-11-14] MEDS: Acetaminophen 650 MG SUPP RECTAL PRN (11:25)
[2019-11-14 12:00] VITALS: BP 100/40
--- NOTE | 2019-11-14 12:30 | General Progress Note ---
Assessment/Plan Status: deteriorating Assessment/Plan: 1. AML. 2. Respiratory failure with vent. 3. Dysphagia with G-tube. 4. Ovarian mass. 5. Advanced Parkinson disease. 6. Anemia requiring blood transfusion in the past. 7. Dementia. 8. Pancytopenia. unable to place GJT due to very large gastrocutaneous fibula on TPN abd dist hypotension no BM abx per ID dulcolax sup KUB poor prognosis Subjective ROS Limited/Unobtainable: No Allergies: Coded Allergies: PENICILLINS (Verified Allergy, Unknown, 11/01/19) VANCOMYCIN (Verified Allergy, Unknown, 11/01/19) Uncoded Allergies: PENICI (Allergy, Unknown, 11/01/19) Objective Last 24 Hour Vital Signs Date Time Temp Pulse Resp B/P (MAP) Pulse Ox O2 Delivery O2 Flow Rate FiO2 11/14/19 12:00 40 11/14/19 12:00 100.0 119 20 100/40 (60) 100 11/14/19 11:55 100.0 11/14/19 10:35 121 23 40 11/14/19 08:00 126 11/14/19 08:00 102.0 125 20 108/58 (75) 100 11/14/19 08:00 40 11/14/19 07:15 125 24 40 11/14/19 04:00 98.6 112 20 112/56 (74) 100 11/14/19 04:00 Mechanical Ventilator 11/14/19 04:00 119 11/14/19 04:00 40 11/14/19 03:58 116 26 40 11/14/19 00:00 99.9 117 23 115/50 (71) 100 11/14/19 00:00 40 11/14/19 00:00 Mechanical Ventilator 11/14/19 00:00 119 11/13/19 23:57 112 23 40 11/13/19 20:00 Mechanical Ventilator 11/13/19 20:00 40 11/13/19 20:00 100.1 109 23 105/57 (73) 100 11/13/19 20:00 110 11/13/19 19:46 108 24 40 11/13/19 16:00 40 11/13/19 16:00 98.4 106 22 100/44 (62) 100 11/13/19 16:00 Mechanical Ventilator 6/21/20 15:59 107 11/13/19 14:45 103 23 40 Intake and Output 11/13/19 11/14/19 19:00 07:00 Intake Total 1005.5 ml 1796 ml Output Total 500 ml 1300 ml Balance 505.5 ml 496 ml IV Total 1005.5 ml 1796 ml Output Urine Total 500 ml 1300 ml Laboratory Tests 11/14/19 05:03: White Blood Count 104.8*H, Red Blood Count 3.20L, Hemoglobin 9.0L, Hematocrit 29.7L, Mean Corpuscular Volume 93, Mean Corpuscular Hemoglobin 28.3, Mean Corpuscular Hemoglobin Concent 30.4L, Red Cell Distribution Width 15.9H, Platelet Count 33L, Mean Platelet Volume , Neutrophils (%) (Auto) , Lymphocytes (%) (Auto) , Monocytes (%) (Auto) , Eosinophils (%) (Auto) , Basophils (%) (Auto ) , Differential Total Cells Counted 100, Neutrophils % (Manual) 13L, Lymphocytes % (Manual) 11L, Monocytes % (Manual) 7, Eosinophils % (Manual) 1, Basophils % (Manual) 0, Blast Cells % 68*H, Band Neutrophils 0, Platelet Estimate DecreasedL, Platelet Morphology Normal, Hypochromasia 1+, Anisocytosis 1+, Sodium Level 139, Potassium Level 4.4, Chloride Level 105, Carbon Dioxide Level 25, Anion Gap 9, Blood Urea Nitrogen 21H, Creatinine 0.9, Estimat Glomerular Filtration Rate > 60, Glucose Level 150H, Calcium Level 7.8L, Magnesium Level 2.1, Total Bilirubin 0.3, Aspartate Amino Transf (AST/SGOT) 27, Alanine Aminotransferase (ALT/SGPT) < 6L, Alkaline Phosphatase 58, Total Protein 5.6L, Albumin 1.8L, Globulin 3.8, Albumin/Globulin Ratio 0.5L Height (Feet): 5 Height (Inches): 3.00 Weight (Pounds): 160 General Appearance: lethargic EENT: normal ENT inspection Neck: supple Cardiovascular: normal rate Respiratory/Chest: decreased breath sounds Abdomen: soft, hypoactive bowel sounds, distended Negro Reeves MD Nov 14, 2019 12:29
--- NOTE | 2019-11-14 12:30 | NUR ---
NURSE NOTES: Dr. Reeves and Dr. Membreno at the bedside for assessment of the patient. Notified critical lab including WBC, no BM since 11/04, and abdominal distension. Will closely monitor the patient. Will continue plan of care.
--- NOTE | 2019-11-14 12:48 | Infectious Diseases Prog Note ---
Assessment/Plan Assessment/Plan ASSESSMENT AND PLAN: 1. mrsa bacteremia, acinetobacter bacteremia, manager diversity bacteremia, klebsiella uti ( cre) sepsis, shock, fevers, leukocytosis, sacral wound infection, AML, + blasts klebsiella(cre) pna/providencia(esbl) pna/pseudomonas pna fungal uti, ? fungemia, TPN ? line infection - picc placed 11/02/19, repeat blood cultures show acinetobacter - daptomycin (11/02/19), polymyxin, meropenem, levofloxacin - micafungin for fungemia coverage - change picc line - d/w RN to place order - surveillance blood cultures ordered - TTE - no vegetations identified - monitor labs and chest x-ray - wound management per surgery - leukocytosis maybe secondary to AML blast crises/flare 2. Trach, vent respiratory failure. 3. Dysphagia, G-tube. 4. Anemia. 5. Thrombocytopenia. 6. Leukocytosis. 7. Malnutrition. 8. Ovarian mass with neoplasm. 9. Parkinson's. 10. Dementia. 11. Skin care per Surgery and protocol. 12. Allergies to penicillin, vancomycin. 13. Social history is negative. 14. Family history is noncontributory. 15. MAR was noted. 16. Case was discussed with RN. 17. Continue treatment per primary consultants. 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 Subjective Constitutional: Reports: fever, other - blood pressure low, + trach and vent HEENT: Reports: congestion Respiratory: Reports: shortness of breath Cardiovascular: Reports: other - low bp Gastrointestinal/Abdominal: Denies: nausea, vomiting Genitourinary: Reports: other - + dong Allergies: Coded Allergies: PENICILLINS (Verified Allergy, Unknown, 11/01/19) VANCOMYCIN (Verified Allergy, Unknown, 11/01/19) Uncoded Allergies: PENICI (Allergy, Unknown, 11/01/19) Objective Vital Signs Last 24 Hour Vital Signs Date Time Temp Pulse Resp B/P (MAP) Pulse Ox O2 Delivery O2 Flow Rate FiO2 11/14/19 12:00 40 11/14/19 12:00 100.0 119 20 100/40 (60) 100 11/14/19 11:55 100.0 11/14/19 10:35 121 23 40 11/14/19 08:00 126 11/14/19 08:00 102.0 125 20 108/58 (75) 100 11/14/19 08:00 40 11/14/19 07:15 125 24 40 11/14/19 04:00 98.6 112 20 112/56 (74) 100 11/14/19 04:00 Mechanical Ventilator 11/14/19 04:00 119 11/14/19 04:00 40 11/14/19 03:58 116 26 40 11/14/19 00:00 99.9 117 23 115/50 (71) 100 11/14/19 00:00 40 11/14/19 00:00 Mechanical Ventilator 11/14/19 00:00 119 11/13/19 23:57 112 23 40 11/13/19 20:00 Mechanical Ventilator 11/13/19 20:00 40 11/13/19 20:00 100.1 109 23 105/57 (73) 100 11/13/19 20:00 110 11/13/19 19:46 108 24 40 11/13/19 16:00 40 11/13/19 16:00 98.4 106 22 100/44 (62) 100 11/13/19 16:00 Mechanical Ventilator 11/13/19 15:59 107 11/13/19 14:45 103 23 40 Height (Feet): 5 Height (Inches): 3.00 Weight (Pounds): 160 General Appearance: no acute distress HEENT: normocephalic, atraumatic, anicteric, status post trach Respiratory/Chest: crackles/rales, rhonchi - bilaterally Cardiovascular: normal rate, regular rhythm Abdomen: normal bowel sounds, soft, non tender Genitourinary: other - + dong Objective Chest x-ray - 11/05/19 - IMPRESSION: 1. Interval placement of right PICC line tip to the mid SVC. 2. Hypoventilatory lungs. Bibasilar atelectasis/consolidations, similar to prior study. 3. Probable bilateral pleural effusions. Chest x-ray - 11/07/19- Procedure: XRAY Chest 1v Procedure: XRAY Chest 1v Reason for study: Shortness of breath. Comparison films: 11/05/2019. FINDINGS: Tracheostomy and right PICC line remain in place. There is limited inspiration with bibasilar densities unchanged. Cardiac and mediastinal silhouette are within normal limits. No large effusion seen The bony thorax appear unremarkable. IMPRESSION: NO SIGNIFICANT CHANGE COMPARED TO PREVIOUS EXAM. CT abdomen and pelvis: IMPRESSION: BILATERAL SMALL PLEURAL EFFUSIONS AND DEPENDENT INFILTRATES. HUGE SEPTATED CYSTIC MASS ARISING FROM THE PELVIS EXTENDING INTO THE ABDOMEN MOST LIKELY OF OVARIAN ORIGIN. SMALL AMOUNT OF FREE FLUID ADJACENT TO THE HEPATIC AND SPLENIC EDGE WELL IN THE PELVIS. LEFT RENAL STONE. POSSIBLE SLUDGE OR NONCALCIFIED STONES LAYERING IN THE GALLBLADDER. LEFT LOWER QUADRANT STOMA. SEVERE DEGENERATIVE CHANGES AND DEXTROSCOLIOSIS OF THE SPINE. ANASARCA. Abdominal US: IMPRESSION: 1. Sludge and possible small stones in the gallbladder. No gallbladder wall thickening or pericholecystic fluid. 2. Ascites. 3. Small right pleural effusion. Chest x-ray - 11/10/19 - Procedure: XRAY Chest 1v Procedure: XRAY Chest 1v Reason for study: Reason For Exam: SOB Comparison films: 11/07/2019. FINDINGS: Tracheostomy remains in place. Basilar infiltrates not significantly changed. Small effusions unchanged. Cardiac silhouette stable. The bony thorax appear unremarkable. IMPRESSION: NO SIGNIFICANT CHANGE COMPARED TO PREVIOUS EXAM Microbiology Date/Time Source Procedure Growth Status 11/11/19 18:45 Blood Blood Culture - Preliminary A.baumanii Complx - Mdr Resulted 11/11/19 17:40 Blood Blood Culture - Preliminary NO GROWTH AFTER 48 HOURS Resulted 11/13/19 04:00 Indwelling Cath Urine Culture - Preliminary Resulted 11/11/19 17:30 Indwelling Cath Urine Culture - Final Aundrea Tropicalis Complete Laboratory Tests Test 11/14/19 05:03 White Blood Count 104.8 K/UL (4.8-10.8) *H Red Blood Count 3.20 M/UL (4.20-5.40) L Hemoglobin 9.0 G/DL (12.0-16.0) L Hematocrit 29.7 % (37.0-47.0) L Mean Corpuscular Volume 93 FL (80-99) Mean Corpuscular Hemoglobin 28.3 PG (27.0-31.0) Mean Corpuscular Hemoglobin Concent 30.4 G/DL (32.0-36.0) L Red Cell Distribution Width 15.9 % (11.6-14.8) H Platelet Count 33 K/UL (150-450) L Mean Platelet Volume FL (6.5-10.1) Neutrophils (%) (Auto) % (45.0-75.0) Lymphocytes (%) (Auto) % (20.0-45.0) Monocytes (%) (Auto) % (1.0-10.0) Eosinophils (%) (Auto) % (0.0-3.0) Basophils (%) (Auto) % (0.0-2.0) Differential Total Cells Counted 100 Neutrophils % (Manual) 13 % (45-75) L Lymphocytes % (Manual) 11 % (20-45) L Monocytes % (Manual) 7 % (1-10) Eosinophils % (Manual) 1 % (0-3) Basophils % (Manual) 0 % (0-2) Blast Cells % 68 % (0-0) *H Band Neutrophils 0 % (0-8) Platelet Estimate Decreased L Platelet Morphology Normal Hypochromasia 1+ Anisocytosis 1+ Sodium Level 139 MMOL/L (136-145) Potassium Level 4.4 MMOL/L (3.5-5.1) Chloride Level 105 MMOL/L (98-107) Carbon Dioxide Level 25 MMOL/L (21-32) Anion Gap 9 mmol/L (5-15) Blood Urea Nitrogen 21 mg/dL (7-18) H Creatinine 0.9 MG/DL (0.55-1.30) Estimat Glomerular Filtration Rate > 60 mL/min (>60) Glucose Level 150 MG/DL (74-106) H Calcium Level 7.8 MG/DL (8.5-10.1) L Magnesium Level 2.1 MG/DL (1.8-2.4) Total Bilirubin 0.3 MG/DL (0.2-1.0) Aspartate Amino Transf (AST/SGOT) 27 U/L (15-37) Alanine Aminotransferase (ALT/SGPT) < 6 U/L (12-78) L Alkaline Phosphatase 58 U/L (46-116) Total Protein 5.6 G/DL (6.4-8.2) L Albumin 1.8 G/DL (3.4-5.0) L Globulin 3.8 g/dL Albumin/Globulin Ratio 0.5 (1.0-2.7) L Current Medications Medications (Trade) Dose Ordered Sig/Inna Route PRN Reason Start Time Stop Time Status Last Admin Dose Admin Acetaminophen (Tylenol) 650 mg Q4H PRN GT fever 100.4, mild pain 11/10/19 10:00 12/01/19 23:14 Acetaminophen (Tylenol) 650 mg Q4H PRN RECTAL Temp >100.5 11/08/19 21:30 12/08/19 21:29 11/14/19 11:25 Albuterol/ Ipratropium (Albuterol/ Ipratropium) 3 ml Q4H PRN HHN sob 11/11/19 09:40 11/16/19 09:39 Allopurinol (Zyloprim) 100 mg TID GT 11/02/19 09:00 12/02/19 08:59 11/08/19 08:42 Ascorbic Acid (Vitamin C) 500 mg DAILY GT 11/02/19 09:00 12/02/19 08:59 11/08/19 08:42 Bisacodyl (Dulcolax) 10 mg ONCE RECTAL 11/14/19 12:30 11/14/19 14:00 Carbidopa/Levodopa (Sinemet 25/100) 2 tab QID GT 11/02/19 09:00 12/02/19 08:59 11/08/19 08:42 Chlorhexidine Gluconate (Josefa-Hex 2%) 1 applic DAILY@2000 TOPIC 11/03/19 20:00 02/01/20 19:59 11/13/19 20:11 Daptomycin 500 mg/ Sodium Chloride 50 ml @ 100 mls/hr Q24H IV 11/14/19 16:00 11/21/19 15:59 Dextrose 1,000 ml @ 0 mls/hr Q24H PRN IV PN interrupted or unavailable 11/09/19 20:00 12/09/19 19:59 Dextrose (Dextrose 50%) 25 ml Q30M PRN IV Hypoglycemia 11/09/19 20:00 02/07/20 19:59 Dextrose (Dextrose 50%) 50 ml Q30M PRN IV Hypoglycemia 11/09/19 20:00 02/07/20 19:59 Dextrose/ Electrolytes 1,000 ml @ 100 mls/hr Q10H IV 11/14/19 11:30 12/14/19 11:29 11/14/19 12:18 Docusate Sodium (Colace) 100 mg DAILY GT 11/02/19 09:00 12/02/19 08:59 11/08/19 08:41 Donepezil HCl (Aricept) 10 mg QHS GT 11/02/19 21:00 12/02/19 20:59 11/07/19 21:35 Entacapone (Comtan) 400 mg THREE TIMES A DAY ORAL 11/10/19 13:00 12/02/19 17:59 Fat Emulsion Intravenous 192 ml/Amino Acids/ Electrolytes/ Dextrose 1,872 ml @ 78 mls/hr Q24H IV 11/11/19 20:00 12/11/19 19:59 11/13/19 20:12 Insulin Aspart (NovoLOG) Q6HR SUBQ 11/06/19 12:00 02/04/20 11:59 11/14/19 12:20 Levofloxacin 50 ml @ 50 mls/hr Q24H IVPB 11/13/19 09:00 11/20/19 08:59 11/14/19 09:39 Meropenem 1 gm/ Sodium Chloride 100 ml @ 200 mls/hr Q8HR IVPB 11/13/19 22:00 11/18/19 21:59 11/14/19 05:13 Metoclopramide HCl (Reglan) 5 mg Q6H PRN IVP nausea or vomiting 11/01/19 23:15 12/01/19 23:14 11/02/19 12:51 Micafungin Sodium 100 mg/Sodium Chloride 110 ml @ 110 mls/hr Q24H IVPB 11/13/19 21:00 11/20/19 20:59 11/13/19 21:22 Multivitamins (Multivitamins W/ Minerals 15ml Liquid) 15 ml DAILY GT 11/02/19 09:00 12/02/19 08:59 11/08/19 08:42 Ondansetron HCl (Zofran) 4 mg Q4H PRN IVP Nausea & Vomiting 11/01/19 23:15 12/01/19 23:14 Pantoprazole (Protonix) 40 mg DAILY IVP 11/05/19 09:00 12/05/19 08:59 11/14/19 09:38 Polyethylene Glycol (Miralax) 17 gm DAILY PRN GT Constipation 11/02/19 08:30 12/02/19 07:59 Polymyxin B Sulfate 236593 units/Dextrose 550 ml @ 550 mls/hr EVERY 12 HOURS IV 11/10/19 21:00 11/17/19 20:59 11/14/19 09:38 Quetiapine Fumarate (SEROqueL) 50 mg QHS GT 11/02/19 21:00 12/17/19 20:59 11/07/19 21:36 Sennosides (Senokot) 8.6 mg QHS GT 11/02/19 21:00 12/02/19 20:59 11/07/19 21:32 Zinc Oxide (Desitin) 1 applic FOUR TIMES A DAY TOPIC 11/04/19 14:00 12/04/19 13:59 11/14/19 09:40 González Yadav MD Nov 14, 2019 12:48
--- NOTE | 2019-11-14 12:50 | NUR ---
NURSE NOTES: Dr. Membreno ordered to removed PICC line and insert new one due to continuous positive blood culture. Notified Dr. Prince and agreed. Will carry out the order as ordered. Will continue plan of care.
--- NOTE | 2019-11-14 13:30 | NUR ---
NURSE NOTES: Rechecked the patient's blood pressure. Systolic blood pressure of 100s noted. Will closely monitor the patient. Will continue plan of care.
--- NOTE | 2019-11-14 15:00 | NUR ---
NURSE NOTES: The patient is stable at this time. No fever noted. Blood pressure of systolic 90-100s noted. Will closely monitor the patient. Will continue plan of care.
--- NOTE | 2019-11-14 15:12 | Internal Med Progress Note ---
Subjective Date of Service: Nov 14, 2019 Physician Name Fredrick Prince Attending Physician Fredrick Prince MD Current Medications Medications (Trade) Dose Ordered Sig/Inna Route PRN Reason Start Time Stop Time Status Last Admin Dose Admin Acetaminophen (Tylenol) 650 mg Q4H PRN GT fever 100.4, mild pain 11/10/19 10:00 12/01/19 23:14 Acetaminophen (Tylenol) 650 mg Q4H PRN RECTAL Temp >100.5 11/08/19 21:30 12/08/19 21:29 11/14/19 11:25 Albuterol/ Ipratropium (Albuterol/ Ipratropium) 3 ml Q4H PRN HHN sob 11/11/19 09:40 11/16/19 09:39 Allopurinol (Zyloprim) 100 mg TID GT 11/02/19 09:00 12/02/19 08:59 11/08/19 08:42 Ascorbic Acid (Vitamin C) 500 mg DAILY GT 11/02/19 09:00 12/02/19 08:59 11/08/19 08:42 Carbidopa/Levodopa (Sinemet 25/100) 2 tab QID GT 11/02/19 09:00 12/02/19 08:59 11/08/19 08:42 Chlorhexidine Gluconate (Josefa-Hex 2%) 1 applic DAILY@2000 TOPIC 11/03/19 20:00 02/01/20 19:59 11/13/19 20:11 Daptomycin 500 mg/ Sodium Chloride 50 ml @ 100 mls/hr Q24H IV 11/14/19 16:00 11/21/19 15:59 Dextrose 1,000 ml @ 0 mls/hr Q24H PRN IV PN interrupted or unavailable 11/09/19 20:00 12/09/19 19:59 Dextrose (Dextrose 50%) 25 ml Q30M PRN IV Hypoglycemia 11/09/19 20:00 02/07/20 19:59 Dextrose (Dextrose 50%) 50 ml Q30M PRN IV Hypoglycemia 11/09/19 20:00 02/07/20 19:59 Dextrose/ Electrolytes 1,000 ml @ 100 mls/hr Q10H IV 11/14/19 11:30 12/14/19 11:29 11/14/19 12:18 Docusate Sodium (Colace) 100 mg DAILY GT 11/02/19 09:00 12/02/19 08:59 11/08/19 08:41 Donepezil HCl (Aricept) 10 mg QHS GT 11/02/19 21:00 12/02/19 20:59 11/07/19 21:35 Entacapone (Comtan) 400 mg THREE TIMES A DAY ORAL 11/10/19 13:00 12/02/19 17:59 Fat Emulsion Intravenous 192 ml/Amino Acids/ Electrolytes/ Dextrose 1,872 ml @ 78 mls/hr Q24H IV 11/11/19 20:00 12/11/19 19:59 11/13/19 20:12 Insulin Aspart (NovoLOG) Q6HR SUBQ 11/06/19 12:00 02/04/20 11:59 11/14/19 12:20 Levofloxacin 50 ml @ 50 mls/hr Q24H IVPB 11/13/19 09:00 11/20/19 08:59 11/14/19 09:39 Meropenem 1 gm/ Sodium Chloride 100 ml @ 200 mls/hr Q8HR IVPB 11/13/19 22:00 11/18/19 21:59 11/14/19 13:05 Metoclopramide HCl (Reglan) 5 mg Q6H PRN IVP nausea or vomiting 11/01/19 23:15 12/01/19 23:14 11/02/19 12:51 Micafungin Sodium 100 mg/Sodium Chloride 110 ml @ 110 mls/hr Q24H IVPB 11/13/19 21:00 11/20/19 20:59 11/13/19 21:22 Multivitamins (Multivitamins W/ Minerals 15ml Liquid) 15 ml DAILY GT 11/02/19 09:00 12/02/19 08:59 11/08/19 08:42 Ondansetron HCl (Zofran) 4 mg Q4H PRN IVP Nausea & Vomiting 11/01/19 23:15 12/01/19 23:14 Pantoprazole (Protonix) 40 mg DAILY IVP 11/05/19 09:00 12/05/19 08:59 11/14/19 09:38 Polyethylene Glycol (Miralax) 17 gm DAILY PRN GT Constipation 11/02/19 08:30 12/02/19 07:59 Polymyxin B Sulfate 312137 units/Dextrose 550 ml @ 550 mls/hr EVERY 12 HOURS IV 11/10/19 21:00 11/17/19 20:59 11/14/19 09:38 Quetiapine Fumarate (SEROqueL) 50 mg QHS GT 11/02/19 21:00 12/17/19 20:59 11/07/19 21:36 Sennosides (Senokot) 8.6 mg QHS GT 11/02/19 21:00 12/02/19 20:59 11/07/19 21:32 Zinc Oxide (Desitin) 1 applic FOUR TIMES A DAY TOPIC 11/04/19 14:00 12/04/19 13:59 11/14/19 13:05 Allergies: Coded Allergies: PENICILLINS (Verified Allergy, Unknown, 11/01/19) VANCOMYCIN (Verified Allergy, Unknown, 11/01/19) Uncoded Allergies: PENICI (Allergy, Unknown, 11/01/19) ROS Limited/Unobtainable: Yes All Systems: reviewed and negative except above Subjective non verbal, chronic trach hypotensive SBP in 70s IV albumin given ordered to transfer to ICU to start pressor GJ tube failed due to big whole on TPN worsening leukocytosis Objective Last Vital Signs Date Time Temp Pulse Resp B/P (MAP) Pulse Ox O2 Delivery O2 Flow Rate FiO2 11/14/19 12:00 40 11/14/19 12:00 117 11/14/19 12:00 100.0 20 100/40 (60) 100 11/14/19 12:00 Mechanical Ventilator General Appearance: no apparent distress EENT: other - intubated via trach Cardiovascular: normal rate, regular rhythm, systolic murmur Respiratory/Chest: rhonchi - bilaterally Abdomen: normal bowel sounds, non tender, soft Edema: other - +edema Neurologic: unresponsiveness, aphasia Skin: warm/dry, other - +various stage pressure ulcers Laboratory Tests Test 11/14/19 05:03 White Blood Count 104.8 K/UL (4.8-10.8) *H Red Blood Count 3.20 M/UL (4.20-5.40) L Hemoglobin 9.0 G/DL (12.0-16.0) L Hematocrit 29.7 % (37.0-47.0) L Mean Corpuscular Volume 93 FL (80-99) Mean Corpuscular Hemoglobin 28.3 PG (27.0-31.0) Mean Corpuscular Hemoglobin Concent 30.4 G/DL (32.0-36.0) L Red Cell Distribution Width 15.9 % (11.6-14.8) H Platelet Count 33 K/UL (150-450) L Mean Platelet Volume FL (6.5-10.1) Neutrophils (%) (Auto) % (45.0-75.0) Lymphocytes (%) (Auto) % (20.0-45.0) Monocytes (%) (Auto) % (1.0-10.0) Eosinophils (%) (Auto) % (0.0-3.0) Basophils (%) (Auto) % (0.0-2.0) Differential Total Cells Counted 100 Neutrophils % (Manual) 13 % (45-75) L Lymphocytes % (Manual) 11 % (20-45) L Monocytes % (Manual) 7 % (1-10) Eosinophils % (Manual) 1 % (0-3) Basophils % (Manual) 0 % (0-2) Blast Cells % 68 % (0-0) *H Band Neutrophils 0 % (0-8) Platelet Estimate Decreased L Platelet Morphology Normal Hypochromasia 1+ Anisocytosis 1+ Sodium Level 139 MMOL/L (136-145) Potassium Level 4.4 MMOL/L (3.5-5.1) Chloride Level 105 MMOL/L (98-107) Carbon Dioxide Level 25 MMOL/L (21-32) Anion Gap 9 mmol/L (5-15) Blood Urea Nitrogen 21 mg/dL (7-18) H Creatinine 0.9 MG/DL (0.55-1.30) Estimat Glomerular Filtration Rate > 60 mL/min (>60) Glucose Level 150 MG/DL (74-106) H Calcium Level 7.8 MG/DL (8.5-10.1) L Magnesium Level 2.1 MG/DL (1.8-2.4) Total Bilirubin 0.3 MG/DL (0.2-1.0) Aspartate Amino Transf (AST/SGOT) 27 U/L (15-37) Alanine Aminotransferase (ALT/SGPT) < 6 U/L (12-78) L Alkaline Phosphatase 58 U/L (46-116) Total Protein 5.6 G/DL (6.4-8.2) L Albumin 1.8 G/DL (3.4-5.0) L Globulin 3.8 g/dL Albumin/Globulin Ratio 0.5 (1.0-2.7) L Microbiology Date/Time Source Procedure Growth Status 11/11/19 18:45 Blood Blood Culture - Preliminary A.baumanii Complx - Mdr Resulted 11/11/19 17:40 Blood Blood Culture - Preliminary NO GROWTH AFTER 48 HOURS Resulted 11/13/19 04:00 Indwelling Cath Urine Culture - Preliminary Resulted 11/11/19 17:30 Indwelling Cath Urine Culture - Final Aundrea Tropicalis Complete Intake and Output 11/13/19 11/14/19 19:00 07:00 Intake Total 1005.5 ml 1796 ml Output Total 500 ml 1300 ml Balance 505.5 ml 496 ml IV Total 1005.5 ml 1796 ml Output Urine Total 500 ml 1300 ml Objective unable to place J tube .on TPN Assessment/Plan Status: deteriorating Assessment/Plan Impression: sepsis on admission septic shock line sepsis acinectobacter bacteremia fungal cystitis 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 d/w GI PGE/J in few week unable to put PEG J tube due to large whole KCL IV replete prn s/p Mg sulfate IV 2 gram leukocytosis could be AML flare s/p 3 units PRBC tx so far IV abxper ID wound care f/u cx ID f/u electrolyte replete as needed enteral feeding ventilator pulm HHN dong pain control dc aricept, allopurinol DNAR status Fredrick Prince MD Internal Medicine [phone] time spent today over 45 minutes stamp time on this note may NOT be the actual encounter time. Fredrick Prince MD Nov 14, 2019 15:12
[2019-11-14] MEDS: DAPTOmycin 500 MG in NS 50 ML IV SCH (15:52)
[2019-11-14 16:00] VITALS: BP 102/43
--- NOTE | 2019-11-14 16:40 | NUR ---
CASE MANAGEMENT: REVIEW SI: ANEMIA . UTI . LARGE GASTROCUTANEOUS FISTULA T 102.0 HR 125 RR 20 BP 100/40 SAT 100% MECH VENT FIO2 40 WBC 104.8 H/H 9.0/29.7 IS: TPN IV Q24HR DAPTOMYCIN IV Q24HR D5 NS IVF @ 100ML/HR POLYMYXIN B SULFATE IV Q12HR PROTONIX IV QD G-J TUBE PLACEMENT PENDING ; PROCEDURE ABORTED 11/07 STEP DOWN UNIT STATUS DCP: PATIENT IS FROM [facility]
--- NOTE | 2019-11-14 17:00 | NUR ---
NURSE NOTES: Bed bath given. Tolerated well. Dressing changed. Will closely monitor the patient. Will continue plan of care.
--- NOTE | 2019-11-14 18:00 | NUR ---
NURSE NOTES: Dr. Prince ordered to change the IVF rate of D5NS w/20mEq KCL from 100mL/hr to 50mL/hr. Will adjust as ordered. Will continue plan of care.
--- NOTE | 2019-11-14 19:20 | NUR ---
HAND-OFF: Report given to SRIKANTH Ellison. The patient is stable at this time. Endorsed plan of care.
--- NOTE | 2019-11-14 19:22 | NUR ---
"NURSE NOTES: Received patient from SRIKANTH Coelho. Patient obtunded upon assessment. Patient tolerating vent settings as ordered: A/C 20 | TV 600 | FiO2 40 | Peep 5. No respiratory distress noted. Patient is NPO as endorsed. Per report, okay to non-admit medications via g-tube secondary to patient having no g-tube. Bailey intact and draining to gravity. Patient appears to be clean and dry. Noted with right upper arm PICC double lumen running TPN at 78 mL/hour and D5 N/S + 20 KCL at 50 mL/hr. Safety measures initiated. Bed in lowest and locked position. Call light within reach. Side rails up x3. Will continue to monitor. Addendum: 11/14/19 at 1946 by Aranza Quinonez RN Patient noted with padded side rails for seizure precautions. No seizure activity noted. Will monitor closely."
--- NOTE | 2019-11-14 19:40 | NUR ---
NURSE NOTES: Made aware of Left ear active bleeding. Dressing intact and pressure implemented. Patient in stable condition. Will continue to monitor patient.
[2019-11-14 20:00] VITALS: BP 112/50
[2019-11-14] MEDS: TPN IV SCH (20:15)
[2019-11-14] MEDS: FAT EMULSION 20% IV SCH (20:15)
[2019-11-14] MEDS: Sennosides 8.6mg tab GT SCH (20:16)
[2019-11-14] MEDS: Micafungin 100 MG in NS 110 ML IVPB SCH (20:16)
[2019-11-14] MEDS: Dyna-Hex 2% Top Sol 2oz TOPIC SCH (20:16)
--- NOTE | 2019-11-14 21:00 | NUR ---
NURSE NOTES: Per pharmacistNelly, Polymyxin + Merrem not compatible to infuse with D5W NS KCL. Maintenance fluids held briefly while antibiotics were running, then restarted immediately.
--- NOTE | 2019-11-14 22:02 | Surgery Progress Note ---
Surgery Progress Note Subjective Additional Comments declining wbc noted exam unchanged ill appearing Objective Last 24 Hour Vital Signs Date Time Temp Pulse Resp B/P (MAP) Pulse Ox O2 Delivery O2 Flow Rate FiO2 11/14/19 19:46 114 21 40 11/14/19 16:00 40 11/14/19 16:00 108 11/14/19 16:00 Mechanical Ventilator 11/14/19 16:00 98.3 105 20 102/43 (62) 100 11/14/19 15:25 105 24 40 11/14/19 12:00 40 11/14/19 12:00 117 11/14/19 12:00 100.0 119 20 100/40 (60) 100 11/14/19 12:00 Mechanical Ventilator 11/14/19 11:55 100.0 11/14/19 10:35 121 23 40 11/14/19 08:00 126 11/14/19 08:00 Mechanical Ventilator 11/14/19 08:00 102.0 125 20 108/58 (75) 100 11/14/19 08:00 40 11/14/19 07:15 125 24 40 11/14/19 04:00 98.6 112 20 112/56 (74) 100 11/14/19 04:00 Mechanical Ventilator 11/14/19 04:00 119 11/14/19 04:00 40 11/14/19 03:58 116 26 40 11/14/19 00:00 99.9 117 23 115/50 (71) 100 11/14/19 00:00 40 11/14/19 00:00 Mechanical Ventilator 11/14/19 00:00 119 11/13/19 23:57 112 23 40 I&O Intake and Output 11/13/19 11/14/19 19:00 07:00 Intake Total 1005.5 ml 1796 ml Output Total 500 ml 1300 ml Balance 505.5 ml 496 ml IV Total 1005.5 ml 1796 ml Output Urine Total 500 ml 1300 ml Dressing: other Wound: other Drains: other Cardiovascular: RSR Respiratory: decreased breath sounds Abdomen: soft, non-distended, decreased bowel sounds Extremities: edema, no cyanosis, other Laboratory Tests Test 11/14/19 05:03 White Blood Count 104.8 K/UL (4.8-10.8) *H Red Blood Count 3.20 M/UL (4.20-5.40) L Hemoglobin 9.0 G/DL (12.0-16.0) L Hematocrit 29.7 % (37.0-47.0) L Mean Corpuscular Volume 93 FL (80-99) Mean Corpuscular Hemoglobin 28.3 PG (27.0-31.0) Mean Corpuscular Hemoglobin Concent 30.4 G/DL (32.0-36.0) L Red Cell Distribution Width 15.9 % (11.6-14.8) H Platelet Count 33 K/UL (150-450) L Mean Platelet Volume FL (6.5-10.1) Neutrophils (%) (Auto) % (45.0-75.0) Lymphocytes (%) (Auto) % (20.0-45.0) Monocytes (%) (Auto) % (1.0-10.0) Eosinophils (%) (Auto) % (0.0-3.0) Basophils (%) (Auto) % (0.0-2.0) Differential Total Cells Counted 100 Neutrophils % (Manual) 13 % (45-75) L Lymphocytes % (Manual) 11 % (20-45) L Monocytes % (Manual) 7 % (1-10) Eosinophils % (Manual) 1 % (0-3) Basophils % (Manual) 0 % (0-2) Blast Cells % 68 % (0-0) *H Band Neutrophils 0 % (0-8) Platelet Estimate Decreased L Platelet Morphology Normal Hypochromasia 1+ Anisocytosis 1+ Sodium Level 139 MMOL/L (136-145) Potassium Level 4.4 MMOL/L (3.5-5.1) Chloride Level 105 MMOL/L (98-107) Carbon Dioxide Level 25 MMOL/L (21-32) Anion Gap 9 mmol/L (5-15) Blood Urea Nitrogen 21 mg/dL (7-18) H Creatinine 0.9 MG/DL (0.55-1.30) Estimat Glomerular Filtration Rate > 60 mL/min (>60) Glucose Level 150 MG/DL (74-106) H Calcium Level 7.8 MG/DL (8.5-10.1) L Magnesium Level 2.1 MG/DL (1.8-2.4) Total Bilirubin 0.3 MG/DL (0.2-1.0) Aspartate Amino Transf (AST/SGOT) 27 U/L (15-37) Alanine Aminotransferase (ALT/SGPT) < 6 U/L (12-78) L Alkaline Phosphatase 58 U/L (46-116) Total Protein 5.6 G/DL (6.4-8.2) L Albumin 1.8 G/DL (3.4-5.0) L Globulin 3.8 g/dL Albumin/Globulin Ratio 0.5 (1.0-2.7) L Plan Problems: (1) Decubitus skin ulcer Assessment & Plan: Pt presented on admission with multiple Pressure Injuries, and contractures. Large Soft Mass noted to lateral R chest ,just inferior to Breast.Soft mass that uis violaceous and denuded. Unstageable Pressure injury R thoracic. Wound presents as partially opened DTPI( L)6cm x (W)8.5cm. 95% Soft eschar flap,5% dee. Marginal erythema along borders In addition scattered linear and purple area periwound. Full thickness stage 4 Sacral Pressure Injury(L)9.3cm x (W)8.7cm. Base of wound is 95% necrotic,but bone is palpable.Mild odor noted. No exudate noted. Non-blanching erythema periwound. Unstageable Pressure Injury R trochanter(L)3.5cm x (W)4.2cm. Base of wound is 90 % soft eschar, 10% pink epithelial. Edges adherent to base of wound .No erythema induration or fluctuance periwound. Unstageable Pressure injury R Ischium(L)3.5cm x (W)2.5cm. Dry eschar at base of wound, edges are adherent with surrounding pink epithelial. No erythema or induration periwound. DTPI L trochanter(L)4cm x (W)1cm. Stable dry eschar L Hallux(L)1.6cm x (W)2cm.NO erythema fluctuance or induration periwound. L 1st metatarsal TMA noted. Stable dry eschar distal/lateral L foot (L)1.5cm x (W)3cm. No erythema, induration or fluctuance periwound. DTPI noted to plantar L foot.(L)0.9cm x (W)0.9cm. Base of wound is fluctuant, purple with maroon borders. Unstageable Pressure injury L lateral Malleolus. Stable dry eschar noted.No erythema or induration periwound. L heel is boggy with non-blanching erythema. Unstageable Pressure injury R Hallux and plantar aspect(L)3.5cm x (W)3.4cm. Soft eschar at base of wound with marginal erythema along borders. R heel is boggy with Non-Blanching erythema. Unstageable Presure injury distal/Lateral R foot . Stable dry eschar noted . No erythema of fluctuance periwound. Tx.Plan: Cleanse Sacral Wound with Saline. Loosely pack with Therahoney impregnated Kerlix.Applpy Moisture Barrier Paste periwound. Cover with Optifoam drsg. Change Daily and prn. Cleanse Soft Mass R chest with Saline. Cover with Optifoam drsg. Change Daily and prn. Cleanse wounds R trochanter, R Ischium with Saline. Apply Moisture Barrier Paste.Cover with Optifoam drsg. Change every 3 days and prn. Apply Moisture Barrier to L trochanter. Cvoer with Optifoam drsg. Change every 3 days and prn. Apply Betadine to wounds R and L foot. Cover each wound with Optifoam drsg. Changee very 3 days and prn. Apply Cavilon Skin Barrier to both heels. Cover each heel with Optifoam drsg. Change every 7 days and prn. APM/ANA Mattress overlay. turn q2h nutritional optimization (2) Malnutrition Assessment & Plan: pending g tube DAILY ESTIMATED NEEDS: Needs based on Critical care, wounds, 64kg 22-28 kcals/kg [id number] total kcals 1.25-2 g protein/kg 80-128 g total protein 25-30 mL/kg 0623-3878 total fluid mLs NUTRITION DIAGNOSIS: Swallowing difficulty r/t respiratory status as evidenced by pt is trach and peg dep, currently NPO, on TPN. CURRENT TF:NPO, on TPN ENTERAL NUTRITION RECOMMENDATIONS: VITAL AF 1.2 @ 55ml/hr x24 hrs to provide 1320ml, 1584 kcal, 99g pro, 1071ml free H2O - Post PEJ placement, initiate Vital AF 1.2 @ 25ml/hr x 6hrs, advance 10ml q 4- 6 hrs as tolerated to goal. - Flush per MD Jacqueline SCHNEIDER over 30 degrees PARENTERAL NUTRITION RECOMMENDATIONS: D/AA Rate: 70 IL Rate: 8 Total Rate: 78 Volume: 1872 % Dextrose: 18 % AA: 5.5 Energy (kcals/kg): 1781 Protein (g/kg protein): 92 Nonprotein KCALS: 1412 GIR (mg CHO/kg/min): 3.3 % Fat KCALS: 22 NCP: N Ratio: 96:1 TPN Comment: - Maintain current TPN: -> D18%, AA 5.5% @70ml/hr w/ 20%IL @8ml/hr - all 3:1 - TF at goal meets 100% est needs, provides 28 kcal/kg and 1.4g/kg pro. - GIR<5 - IL <30% ADDITIONAL RECOMMENDATIONS: 1) Per SNF: 65 inches (5'5"); 141 lbs (64.1kg) 2) Wound care: add MEIR BID via GT w/ TF order 3) Monitor lytes, BG, and LFT's on TPN - check phos and mag (not checked since TPN initiation) (3) Anemia Assessment & Plan: transfused trend labs no active bleeding stool study GI eval (4) UTI (urinary tract infection) (5) Tracheostomy dependence Assessment & Plan: Findings: The left hemidiaphragm is elevated. Atelectatic changes are present in the left lung base. There is minimal right basilar atelectasis. No definite infiltrates. There is a tracheostomy. Impression: Elevated left hemidiaphragm with considerable left basilar atelectasis. Less extensive right basilar atelectasis. Inspiration is suboptimal. Interim development of opacity of the left mid and lower lung. The left hemidiaphragm is obscured. Right lung is probably clear , although there is crowding of bronchovascular lung volumes. Tracheostomy remains. Impression: Since 11/01/2019, interim development of left mid and lower lung infiltrates versus edema and possibly pleural fluid Juan Houser Nov 14, 2019 22:02
[2019-11-15] VITALS (7 sets, daily range): BP systolic 98–124; BP diastolic 49–73
[2019-11-15] MEDS: Acetaminophen 650 MG SUPP RECTAL PRN ×3 (01:29→20:04)
--- NOTE | 2019-11-15 01:30 | NUR ---
NURSE NOTES: Patient febrile. Warm to touch. Heart rate appears to be trending from 120's to 130's. Temperature 101.2 axill. Cooling measures implemented. Tylenol suppository administered as ordered per protocol. Patient remains stable. Will continue to monitor closely.
--- NOTE | 2019-11-15 02:00 | NUR ---
NURSE NOTES: Patient temperature appears to be trending down. Tylenol and cooling measures appears to be effective. Partial bed bath given. Changed dressing on abdomen and ear. Kept clean, dry, and comfortable. Will continue to monitor patient.
[2019-11-15 05:27] LABS: HEMATOCRIT 23.1 % (37.0-47.0); MEAN CORPUSCULAR VOLUME 92 FL (80-99); PLATELET COUNT 18 K/UL (150-450)
[2019-11-15] MEDS: NovoLOG Insulin Flexpen SUBQ SCH ×4 (05:38→23:01)
[2019-11-15 05:56] LABS: ALANINE AMINOTRANSFERASE 7 U/L (12-78); ALBUMIN 1.8 G/DL (3.4-5.0); ALBUMIN/GLOBULIN RATIO 0.5 (1.0-2.7); ALKALINE PHOSPHATASE 51 U/L (46-116); ANION GAP 8 mmol/L (5-15); ASPARTATE AMINO TRANSFERASE 36 U/L (15-37); BILIRUBIN,TOTAL 0.3 MG/DL (0.2-1.0); BLOOD UREA NITROGEN 25 mg/dL (7-18); CALCIUM 7.3 MG/DL (8.5-10.1); CARBON DIOXIDE 24 MMOL/L (21-32); CHLORIDE 108 MMOL/L (98-107); CREATININE 0.9 MG/DL (0.55-1.30); POTASSIUM 4.6 MMOL/L (3.5-5.1); SODIUM 140 MMOL/L (136-145)
[2019-11-15 06:04] LABS: WHITE BLOOD COUNT 76.8 K/UL (4.8-10.8)
--- NOTE | 2019-11-15 06:15 | NUR ---
NURSE NOTES: Left message to Dr. Prince in regards to abnormal lab values. WBC trending down from 104 to 76.8; Hgb trending down to 7.0; alongside Platelet trending down to 18. Awaiting call back from .
--- NOTE | 2019-11-15 07:05 | NUR ---
HAND-OFF: Report given to Tim Stone, pt. remains stable and no signs of distress noted- aware to f/u on abnormal am labs- WBC trending down, HGB trending down and platelet trending down- endorsed by TIM Rai
--- NOTE | 2019-11-15 07:20 | NUR ---
NURSE NOTES: Received report from Terra/Aranza RN. Pt. in bed, obtunded, non-verbal. No sign of distress. On mech. vent. AC20/VT400/Fi O2 at 40%/P5. No grimacing noted. Noted and informed regarding blood coming out from left ear. NPO at present due to GTF pulled out. On TPN at 78cc/hr. PICC line at right upper arm with 2 lumen patent/intact running D5 NS with Kcl 20meq. at 50cc/hr. Bed in low position, locked. Call light within reach. Will cont. to monitor.
--- NOTE | 2019-11-15 08:43 | Internal Med Progress Note ---
Subjective Date of Service: Nov 15, 2019 Physician Name Fredrick Prince Attending Physician Fredrick Prince MD Current Medications Medications (Trade) Dose Ordered Sig/Inna Route PRN Reason Start Time Stop Time Status Last Admin Dose Admin Acetaminophen (Tylenol) 650 mg Q4H PRN GT fever 100.4, mild pain 11/10/19 10:00 12/01/19 23:14 Acetaminophen (Tylenol) 650 mg Q4H PRN RECTAL Temp >100.5 11/08/19 21:30 12/08/19 21:29 11/15/19 05:42 Albuterol/ Ipratropium (Albuterol/ Ipratropium) 3 ml Q4H PRN HHN sob 11/11/19 09:40 11/16/19 09:39 Ascorbic Acid (Vitamin C) 500 mg DAILY GT 11/02/19 09:00 12/02/19 08:59 11/08/19 08:42 Carbidopa/Levodopa (Sinemet 25/100) 2 tab QID GT 11/02/19 09:00 12/02/19 08:59 11/08/19 08:42 Chlorhexidine Gluconate (Josefa-Hex 2%) 1 applic DAILY@2000 TOPIC 11/15/19 20:00 02/13/20 19:59 11/14/19 20:16 Daptomycin 500 mg/ Sodium Chloride 50 ml @ 100 mls/hr Q24H IV 11/14/19 16:00 11/21/19 15:59 11/14/19 15:52 Dextrose 1,000 ml @ 0 mls/hr Q24H PRN IV PN interrupted or unavailable 11/09/19 20:00 12/09/19 19:59 Dextrose (Dextrose 50%) 25 ml Q30M PRN IV Hypoglycemia 11/09/19 20:00 02/07/20 19:59 Dextrose (Dextrose 50%) 50 ml Q30M PRN IV Hypoglycemia 11/09/19 20:00 02/07/20 19:59 Dextrose/ Electrolytes 1,000 ml @ 50 mls/hr Q20H IV 11/14/19 18:00 12/14/19 17:59 11/14/19 18:07 Docusate Sodium (Colace) 100 mg DAILY GT 11/02/19 09:00 7/10/20 08:59 11/08/19 08:41 Entacapone (Comtan) 400 mg THREE TIMES A DAY ORAL 11/10/19 13:00 12/02/19 17:59 Fat Emulsion Intravenous 192 ml/Amino Acids/ Electrolytes/ Dextrose 1,872 ml @ 78 mls/hr Q24H IV 11/11/19 20:00 12/11/19 19:59 11/14/19 20:15 Heparin Sodium/ Sodium Chloride (Heparin 1000 units/500ml Premix) 1,000 unit ONCE PRN IV picc line placement 11/15/19 09:00 11/16/19 08:59 Insulin Aspart (NovoLOG) Q6HR SUBQ 11/06/19 12:00 02/04/20 11:59 11/15/19 05:38 Levofloxacin 50 ml @ 50 mls/hr Q24H IVPB 11/13/19 09:00 11/20/19 08:59 11/14/19 09:39 Lidocaine HCl (Xylocaine 1% 30ml) 30 ml ONCE PRN INJ picc line placement 11/15/19 09:00 11/16/19 08:59 Meropenem 1 gm/ Sodium Chloride 100 ml @ 200 mls/hr Q8HR IVPB 11/13/19 22:00 11/18/19 21:59 11/15/19 05:33 Metoclopramide HCl (Reglan) 5 mg Q6H PRN IVP nausea or vomiting 11/01/19 23:15 12/01/19 23:14 11/02/19 12:51 Micafungin Sodium 100 mg/Sodium Chloride 110 ml @ 110 mls/hr Q24H IVPB 11/13/19 21:00 11/20/19 20:59 11/14/19 20:16 Multivitamins (Multivitamins W/ Minerals 15ml Liquid) 15 ml DAILY GT 11/02/19 09:00 12/02/19 08:59 11/08/19 08:42 Ondansetron HCl (Zofran) 4 mg Q4H PRN IVP Nausea & Vomiting 11/01/19 23:15 12/01/19 23:14 Pantoprazole (Protonix) 40 mg DAILY IVP 11/05/19 09:00 12/05/19 08:59 11/14/19 09:38 Polyethylene Glycol (Miralax) 17 gm DAILY PRN GT Constipation 11/02/19 08:30 12/02/19 07:59 Polymyxin B Sulfate 425276 units/Dextrose 550 ml @ 550 mls/hr EVERY 12 HOURS IV 11/10/19 21:00 11/17/19 20:59 11/14/19 21:48 Quetiapine Fumarate (SEROqueL) 50 mg QHS GT 11/02/19 21:00 12/17/19 20:59 11/07/19 21:36 Sennosides (Senokot) 8.6 mg QHS GT 11/02/19 21:00 12/02/19 20:59 11/07/19 21:32 Zinc Oxide (Desitin) 1 applic FOUR TIMES A DAY TOPIC 11/04/19 14:00 12/04/19 13:59 11/14/19 20:18 Allergies: Coded Allergies: PENICILLINS (Verified Allergy, Unknown, 11/01/19) VANCOMYCIN (Verified Allergy, Unknown, 11/01/19) Uncoded Allergies: PENICI (Allergy, Unknown, 11/01/19) All Systems: reviewed and negative except above Subjective non verbal, chronic trach hypotensive SBP in 70s IV albumin given ordered to transfer to ICU to start pressor GJ tube failed due to big whole on TPN worsening down trending platelet 18 Objective Last Vital Signs Date Time Temp Pulse Resp B/P (MAP) Pulse Ox O2 Delivery O2 Flow Rate FiO2 11/15/19 07:20 112 29 40 11/15/19 06:12 99.1 11/15/19 04:00 Mechanical Ventilator 11/15/19 04:00 105/55 (72) 100 General Appearance: no apparent distress Neck: other - trach to vent Cardiovascular: normal rate, regular rhythm, systolic murmur Abdomen: normal bowel sounds, non tender, soft Neurologic: unresponsiveness, aphasia Skin: warm/dry, other - various stages decubiti / pressure ulcers Laboratory Tests Test 11/15/19 04:15 White Blood Count 76.8 K/UL (4.8-10.8) *H Red Blood Count 2.50 M/UL (4.20-5.40) L Hemoglobin 7.0 G/DL (12.0-16.0) L Hematocrit 23.1 % (37.0-47.0) L Mean Corpuscular Volume 92 FL (80-99) Mean Corpuscular Hemoglobin 28.0 PG (27.0-31.0) Mean Corpuscular Hemoglobin Concent 30.3 G/DL (32.0-36.0) L Red Cell Distribution Width 16.0 % (11.6-14.8) H Platelet Count 18 K/UL (150-450) L Mean Platelet Volume 16.6 FL (6.5-10.1) H Neutrophils (%) (Auto) % (45.0-75.0) Lymphocytes (%) (Auto) % (20.0-45.0) Monocytes (%) (Auto) % (1.0-10.0) Eosinophils (%) (Auto) % (0.0-3.0) Basophils (%) (Auto) % (0.0-2.0) Differential Total Cells Counted 100 Neutrophils % (Manual) 7 % (45-75) L Lymphocytes % (Manual) 16 % (20-45) L Monocytes % (Manual) 11 % (1-10) H Eosinophils % (Manual) 1 % (0-3) Basophils % (Manual) 2 % (0-2) Blast Cells % 63 % (0-0) *H Band Neutrophils 0 % (0-8) Nucleated Red Blood Cells 4 /100 WBC Platelet Estimate Decreased L Platelet Morphology Normal Anisocytosis 1+ Sodium Level 140 MMOL/L (136-145) Potassium Level 4.6 MMOL/L (3.5-5.1) Chloride Level 108 MMOL/L (98-107) H Carbon Dioxide Level 24 MMOL/L (21-32) Anion Gap 8 mmol/L (5-15) Blood Urea Nitrogen 25 mg/dL (7-18) H Creatinine 0.9 MG/DL (0.55-1.30) Estimat Glomerular Filtration Rate > 60 mL/min (>60) Glucose Level 199 MG/DL (74-106) H Calcium Level 7.3 MG/DL (8.5-10.1) L Total Bilirubin 0.3 MG/DL (0.2-1.0) Aspartate Amino Transf (AST/SGOT) 36 U/L (15-37) Alanine Aminotransferase (ALT/SGPT) 7 U/L (12-78) L Alkaline Phosphatase 51 U/L (46-116) Total Protein 5.1 G/DL (6.4-8.2) L Albumin 1.8 G/DL (3.4-5.0) L Globulin 3.3 g/dL Albumin/Globulin Ratio 0.5 (1.0-2.7) L Microbiology Date/Time Source Procedure Growth Status 11/13/19 03:52 Blood Blood Culture - Preliminary NO GROWTH AFTER 24 HOURS Resulted 11/13/19 03:40 Blood Blood Culture - Preliminary NO GROWTH AFTER 24 HOURS Resulted 11/13/19 04:00 Indwelling Cath Urine Culture - Preliminary YEAST Resulted Intake and Output 11/14/19 11/15/19 19:00 07:00 Intake Total 128 ml 2248 ml Output Total 1500 ml 1350 ml Balance -1372 ml 898 ml IV Total 128 ml 2248 ml Output Urine Total 1500 ml 1350 ml Objective unable to place J tube .on TPN Assessment/Plan Status: stable Assessment/Plan Impression: sepsis on admission septic shock line sepsis acinectobacter bacteremia fungal cystitis 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 /son NOT in agreement. abx broaden per ID worsening wbc could be AML flare microfungin added on TPN. d/w GI PGE/J in few week unable to put PEG J tube due to large whole KCL IV replete prn s/p Mg sulfate IV 2 gram leukocytosis could be AML flare s/p 3 units PRBC tx so far IV abxper ID wound care f/u cx ID f/u electrolyte replete as needed enteral feeding ventilator pulm HHN dong pain control dc aricept, allopurinol DNAR status Fredrick Prince MD Internal Medicine [phone] time spent today over 45 minutes stamp time on this note may NOT be the actual encounter time. Fredrick Prince MD Nov 15, 2019 08:43
[2019-11-15] MEDS: Docusate 100mg/10ml Liq GT SCH (09:00)
[2019-11-15] MEDS: Ascorbic Acid 500mg tab GT SCH (09:00)
[2019-11-15] MEDS: Multivitamins W/Minerals 15 ML UDC GT SCH (09:00)
[2019-11-15] MEDS: Entacapone 200mg tab ORAL SCH ×3 (09:00→18:00)
[2019-11-15] MEDS ORDERED: Lidocaine 1% Plain 30 ml INJ PRN (09:00)
[2019-11-15] MEDS: Levodopa/Carbidopa 25/100 tab GT SCH ×4 (09:00→20:05)
[2019-11-15] MEDS ORDERED: Heparin1,000 units/500ml Premix(Conc:2 units/ml) IV PRN (09:00)
[2019-11-15] MEDS ORDERED: Albuterol/Ipratropium 3ml neb HHN PRN (09:45)
--- NOTE | 2019-11-15 09:50 | Pulmonology Progress Note ---
Martha Chandler [employer] 11/15/19 0950: Subjective ROS Limited/Unobtainable: Yes Constitutional: Reports: fever, other - blood pressure low, + trach and vent Gastrointestinal/Abdominal: Denies: nausea, vomiting Psychiatric: Denies: depression Skin: Denies: rash Musculoskeletal: Reports: other - NA Allergies: Coded Allergies: PENICILLINS (Verified Allergy, Unknown, 11/01/19) VANCOMYCIN (Verified Allergy, Unknown, 11/01/19) Uncoded Allergies: PENICI (Allergy, Unknown, 11/01/19) All Systems: reviewed and negative except above Subjective transferred to ICU 11/13 for hypotension BP responded to albumin bolus and IVF boluses, back to SDU no signs of resp distress on current settings leukocytosis down t0 74 fever this am 101.8 at 4 am, currently afebrile s/p EGD , removal of G tube 10/07 on TPN since 11/08 PLT down to 18, Hgb down to 7 Objective Last 24 Hour Vital Signs Date Time Temp Pulse Resp B/P (MAP) Pulse Ox O2 Delivery O2 Flow Rate FiO2 11/15/19 08:00 97.7 111 18 106/49 (68) 100 11/15/19 08:00 40 11/15/19 07:20 112 29 40 11/15/19 06:12 99.1 11/15/19 04:00 40 11/15/19 04:00 Mechanical Ventilator 11/15/19 04:00 101.8 125 24 105/55 (72) 100 11/15/19 03:32 126 25 40 11/15/19 03:08 125 11/15/19 00:00 40 11/15/19 00:00 101.7 134 27 117/52 (73) 100 11/15/19 00:00 Mechanical Ventilator 11/14/19 23:24 127 11/14/19 22:40 122 27 40 11/14/19 20:00 Mechanical Ventilator 11/14/19 20:00 98.7 114 23 112/50 (70) 99 11/14/19 20:00 40 11/14/19 19:46 114 21 40 11/14/19 19:14 109 11/14/19 16:00 40 11/14/19 16:00 108 11/14/19 16:00 Mechanical Ventilator 11/14/19 16:00 98.3 105 20 102/43 (62) 100 11/14/19 15:25 105 24 40 11/14/19 12:00 40 11/14/19 12:00 117 11/14/19 12:00 100.0 119 20 100/40 (60) 100 11/14/19 12:00 Mechanical Ventilator 11/14/19 10:35 121 23 40 Intake and Output 11/14/19 11/15/19 19:00 07:00 Intake Total 128 ml 2248 ml Output Total 1500 ml 1350 ml Balance -1372 ml 898 ml IV Total 128 ml 2248 ml Output Urine Total 1500 ml 1350 ml Objective General Appearance: no apparent distress, bedridden, vent dependent chronically ill appearing female Lines, tubes and drains: peripheral HEENT: normocephalic, atraumatic, anicteric, status post trach: Shiley #6, secretions small amount, thick consistency, white color , Vent AC 400-40%-20 PEEP 5 Respiratory/Chest: no respiratory distress, few scattered rhonchi Cardiovascular/Chest: regular rhythm, RUE PICC intact Abdomen: non tender, soft, distended, dressing over old G tube site , dry Extremities: no edema, spastic LE Skin Exam: warm/dry, multiple DTI POA ( sacral, ankle foot, elbow) Neurologic: abnormal gait : bedridden, not responsive Musculoskeletal: atrophy - BLE Microbiology Date/Time Source Procedure Growth Status 11/13/19 03:52 Blood Blood Culture - Preliminary NO GROWTH AFTER 24 HOURS Resulted 11/13/19 03:40 Blood Blood Culture - Preliminary NO GROWTH AFTER 24 HOURS Resulted 11/13/19 04:00 Indwelling Cath Urine Culture - Preliminary YEAST Resulted Laboratory Tests 11/15/19 04:15: White Blood Count 76.8*H, Red Blood Count 2.50L, Hemoglobin 7.0L, Hematocrit 23.1L, Mean Corpuscular Volume 92, Mean Corpuscular Hemoglobin 28.0, Mean Corpuscular Hemoglobin Concent 30.3L, Red Cell Distribution Width 16.0H, Platelet Count 18L, Mean Platelet Volume 16.6H, Neutrophils (%) (Auto) , Lymphocytes (%) (Auto) , Monocytes (%) (Auto) , Eosinophils (%) (Auto) , Basophils (%) (Auto) , Differential Total Cells Counted 100, Neutrophils % ( Manual) 7L, Lymphocytes % (Manual) 16L, Monocytes % (Manual) 11H, Eosinophils % (Manual) 1, Basophils % (Manual) 2, Blast Cells % 63*H, Band Neutrophils 0, Nucleated Red Blood Cells 4, Platelet Estimate DecreasedL, Platelet Morphology Normal, Anisocytosis 1+, Sodium Level 140, Potassium Level 4.6, Chloride Level 108H, Carbon Dioxide Level 24, Anion Gap 8, Blood Urea Nitrogen 25H, Creatinine 0.9, Estimat Glomerular Filtration Rate > 60, Glucose Level 199H, Calcium Level 7.3L, Total Bilirubin 0.3, Aspartate Amino Transf (AST/SGOT) 36, Alanine Aminotransferase (ALT/SGPT) 7L, Alkaline Phosphatase 51, Total Protein 5.1L, Albumin 1.8L, Globulin 3.3, Albumin/Globulin Ratio 0.5L Current Medications Medications (Trade) Dose Ordered Sig/Inna Route PRN Reason Start Time Stop Time Status Last Admin Dose Admin Acetaminophen (Tylenol) 650 mg Q4H PRN GT fever 100.4, mild pain 11/10/19 10:00 12/01/19 23:14 Acetaminophen (Tylenol) 650 mg Q4H PRN RECTAL Temp >100.5 11/08/19 21:30 12/08/19 21:29 11/15/19 05:42 Albuterol/ Ipratropium (Albuterol/ Ipratropium) 3 ml Q4H PRN HHN sob 11/11/19 09:40 11/16/19 09:39 Ascorbic Acid (Vitamin C) 500 mg DAILY GT 11/02/19 09:00 12/02/19 08:59 11/08/19 08:42 Carbidopa/Levodopa (Sinemet 25/100) 2 tab QID GT 11/02/19 09:00 12/02/19 08:59 11/08/19 08:42 Chlorhexidine Gluconate (Josefa-Hex 2%) 1 applic DAILY@2000 TOPIC 11/15/19 20:00 02/13/20 19:59 11/14/19 20:16 Daptomycin 500 mg/ Sodium Chloride 50 ml @ 100 mls/hr Q24H IV 11/14/19 16:00 11/21/19 15:59 11/14/19 15:52 Dextrose 1,000 ml @ 0 mls/hr Q24H PRN IV PN interrupted or unavailable 11/09/19 20:00 12/09/19 19:59 Dextrose (Dextrose 50%) 25 ml Q30M PRN IV Hypoglycemia 11/09/19 20:00 02/07/20 19:59 Dextrose (Dextrose 50%) 50 ml Q30M PRN IV Hypoglycemia 11/09/19 20:00 02/07/20 19:59 Dextrose/ Electrolytes 1,000 ml @ 50 mls/hr Q20H IV 11/14/19 18:00 12/14/19 17:59 11/14/19 18:07 Docusate Sodium (Colace) 100 mg DAILY GT 11/02/19 09:00 12/02/19 08:59 11/08/19 08:41 Entacapone (Comtan) 400 mg THREE TIMES A DAY ORAL 11/10/19 13:00 12/02/19 17:59 Fat Emulsion Intravenous 192 ml/Amino Acids/ Electrolytes/ Dextrose 1,872 ml @ 78 mls/hr Q24H IV 11/11/19 20:00 12/11/19 19:59 11/14/19 20:15 Heparin Sodium/ Sodium Chloride (Heparin 1000 units/500ml Premix) 1,000 unit ONCE PRN IV picc line placement 11/15/19 09:00 11/16/19 08:59 Insulin Aspart (NovoLOG) Q6HR SUBQ 11/06/19 12:00 02/04/20 11:59 11/15/19 05:38 Levofloxacin 50 ml @ 50 mls/hr Q24H IVPB 11/13/19 09:00 11/20/19 08:59 11/14/19 09:39 Lidocaine HCl (Xylocaine 1% 30ml) 30 ml ONCE PRN INJ picc line placement 11/15/19 09:00 11/16/19 08:59 Meropenem 1 gm/ Sodium Chloride 100 ml @ 200 mls/hr Q8HR IVPB 11/13/19 22:00 11/18/19 21:59 11/15/19 05:33 Metoclopramide HCl (Reglan) 5 mg Q6H PRN IVP nausea or vomiting 11/01/19 23:15 12/01/19 23:14 11/02/19 12:51 Micafungin Sodium 100 mg/Sodium Chloride 110 ml @ 110 mls/hr Q24H IVPB 11/13/19 21:00 11/20/19 20:59 11/14/19 20:16 Multivitamins (Multivitamins W/ Minerals 15ml Liquid) 15 ml DAILY GT 11/02/19 09:00 12/02/19 08:59 11/08/19 08:42 Ondansetron HCl (Zofran) 4 mg Q4H PRN IVP Nausea & Vomiting 11/01/19 23:15 12/01/19 23:14 Pantoprazole (Protonix) 40 mg DAILY IVP 11/05/19 09:00 12/05/19 08:59 11/14/19 09:38 Polyethylene Glycol (Miralax) 17 gm DAILY PRN GT Constipation 11/02/19 08:30 12/02/19 07:59 Polymyxin B Sulfate 845394 units/Dextrose 550 ml @ 550 mls/hr EVERY 12 HOURS IV 11/10/19 21:00 11/17/19 20:59 11/14/19 21:48 Quetiapine Fumarate (SEROqueL) 50 mg QHS GT 11/02/19 21:00 12/17/19 20:59 11/07/19 21:36 Sennosides (Senokot) 8.6 mg QHS GT 11/02/19 21:00 12/02/19 20:59 11/07/19 21:32 Zinc Oxide (Desitin) 1 applic FOUR TIMES A DAY TOPIC 11/04/19 14:00 12/04/19 13:59 11/14/19 20:18 Assessment/Plan Assessment/Plan ASSESSMENT Chronic respiratory failure ventilator dependent with tracheostomy status Sepsis Bacteremia Hypotension, possible early shock - resolved Pneumonia, possible aspiration UTI with Klebsiella pneumonia CRE Hypotension, possible early shock - resolved 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), s/p 2 u PRBC Pancytopenia Leukocytosis Dysphagia, feeding by G-tube Advanced Parkinson's disease Severe protein calorie malnutrition Malfunctioning G tube ( inadvertently was removed), s/p EGD and removal of G tube Multiple DTI , POA Ovarian mass consistent with neoplasm AML Suspected COVID-19 infection -ruled out Severe protein calorie malnutrition Functional quadriplegia E/lyte abnormalities PLAN OF CARE back to [facility] ( from ICU, responded to IVC boluses and albumin boluses) ventilator support, trach care, pulm toilet baseline ABG stable on current settings, keep as is and optimize as needed CXR 11/06 unchanged, SCX 11/05 Providencia , Klebsiella CRE, Pseudomonas CXR 11/09 no change: Tracheostomy remains in place. Basilar infiltrates not significantly changed. Small effusions unchanged CXR 11/12 -Persistent low lung volumes, may be related to shallow inspiration. Bilateral patchy interstitial and air space opacities, most prominent in the left lung base. Stable to mildly worsened compared to the prior exam and is concerning for pneumonia versus pulmonary edema. Possible small left pleural effusion. BCX 10/31 05/28 Staph haemolyticus, likely contaminant BCX 11/01 05/28 MRSA BCX 11/03 NGTD UCX Klebsiella CRE BCX 11/05 ACB MDR, Staph BCX 11/06 NGTD BCX 11/10 GNR UCX 11/10 + yeast abx as per ID recs -Dapto, Poly and Meropenem, Levaquin and Micafungin added later as per ID recs leuk rising, -CT A/P 11/09 BILATERAL SMALL PLEURAL EFFUSIONS AND DEPENDENT INFILTRATES. HUGE SEPTATED CYSTIC MASS ARISING FROM THE PELVIS EXTENDING INTO THE ABDOMEN MOST LIKELY OF OVARIAN ORIGIN. SMALL AMOUNT OF FREE FLUID ADJACENT TO THE HEPATIC AND SPLENIC EDGE WELL IN THE PELVIS. LEFT RENAL STONE. POSSIBLE SLUDGE OR NONCALCIFIED STONES LAYERING IN THE GALLBLADDER. LEFT LOWER QUADRANT STOMA. SEVERE DEGENERATIVE CHANGES AND DEXTROSCOLIOSIS OF THE SPINE. ANASARCA. ECHO with pEF 55%, no discrete vegetation seen COVID 11/01 NGT, Venous Duplex BLE NGT, apply SCD, monitor HH with goal to keep Hgb >7, trend PLT severe pancytopenia likely 2 to AML will transfuse with 1 unit PLT-pheresis and 1 u PRBC today leukocytosis 2 to sepsis and partially probably due to malignancy/AML and ovarian Ca gentle IVF replace lytes as needed, monitor volumes asp precautions GT was inadvertently removed s/p replacement 11/03 by GI started TF still leaking plan replacement with GJ tube but cancelled due to leukocytosis s/p EGD 11/07, old G tube removed, unable to place a new one due to a large site , currently on TPN strict aspir precautions protein supplement as per RD recs continue SNF meds as per primary supportive care bowel regimen wound care as per surgeon recs overall prognosis grave, given multiple comorbidities, with superimposed AML and ovarian mass, extent of care DNR/DNI status case discussed and evaluated by supervising physician Jerrell Wilson MD 11/15/19 1300: Subjective Allergies: Coded Allergies: PENICILLINS (Verified Allergy, Unknown, 11/01/19) VANCOMYCIN (Verified Allergy, Unknown, 11/01/19) Uncoded Allergies: PENICI (Allergy, Unknown, 11/01/19) Assessment/Plan Assessment/Plan Patient seen and examined with [employer]. Agree with above A&P as it reflects our joint deliberations. BP stable off pressors WCt coming down LUZ MARIA o/w Martha Chandler NP Nov 15, 2019 09:50 Jerrell Wilson MD Nov 15, 2019 13:00
[2019-11-15] MEDS: Polymyxin B Sulfate 500,000 UNITS in D5W 500ml 550 ML IV SCH ×2 (10:12→20:04)
[2019-11-15] MEDS: Pantoprazole Inj IVP SCH (10:16)
[2019-11-15] MEDS: Desitin Rash Paste TOPIC SCH ×4 (11:06→20:08)
--- NOTE | 2019-11-15 12:05 | General Progress Note ---
Assessment/Plan Status: deteriorating Assessment/Plan: 1. AML. 2. Respiratory failure with vent. 3. Dysphagia with G-tube. 4. Ovarian mass. 5. Advanced Parkinson disease. 6. Anemia requiring blood transfusion in the past. 7. Dementia. 8. Pancytopenia. unable to place GJT due to very large gastrocutaneous fibula on TPN abd dist hypotension no BM abx per ID KUB reviewed pending blood and plt transfusion less leakage from the old GT site poor prognosis Subjective ROS Limited/Unobtainable: No Allergies: Coded Allergies: PENICILLINS (Verified Allergy, Unknown, 11/01/19) VANCOMYCIN (Verified Allergy, Unknown, 11/01/19) Uncoded Allergies: PENICI (Allergy, Unknown, 11/01/19) Objective Last 24 Hour Vital Signs Date Time Temp Pulse Resp B/P (MAP) Pulse Ox O2 Delivery O2 Flow Rate FiO2 11/15/19 10:37 109 21 40 11/15/19 08:19 110 11/15/19 08:00 97.7 111 18 106/49 (68) 100 11/15/19 08:00 40 11/15/19 08:00 Mechanical Ventilator 11/15/19 07:20 112 29 40 11/15/19 06:12 99.1 11/15/19 04:00 40 11/15/19 04:00 Mechanical Ventilator 11/15/19 04:00 101.8 125 24 105/55 (72) 100 11/15/19 03:32 126 25 40 11/15/19 03:08 125 11/15/19 00:00 40 11/15/19 00:00 101.7 134 27 117/52 (73) 100 11/15/19 00:00 Mechanical Ventilator 11/14/19 23:24 127 11/14/19 22:40 122 27 40 11/14/19 20:00 Mechanical Ventilator 11/14/19 20:00 98.7 114 23 112/50 (70) 99 11/14/19 20:00 40 11/14/19 19:46 114 21 40 11/14/19 19:14 109 11/14/19 16:00 40 11/14/19 16:00 108 11/14/19 16:00 Mechanical Ventilator 11/14/19 16:00 98.3 105 20 102/43 (62) 100 11/14/19 15:25 105 24 40 Intake and Output 6/22/20 6/23/20 19:00 07:00 Intake Total 128 ml 2248 ml Output Total 1500 ml 1350 ml Balance -1372 ml 898 ml IV Total 128 ml 2248 ml Output Urine Total 1500 ml 1350 ml Laboratory Tests 11/15/19 04:15: White Blood Count 76.8*H, Red Blood Count 2.50L, Hemoglobin 7.0L, Hematocrit 23.1L, Mean Corpuscular Volume 92, Mean Corpuscular Hemoglobin 28.0, Mean Corpuscular Hemoglobin Concent 30.3L, Red Cell Distribution Width 16.0H, Platelet Count 18L, Mean Platelet Volume 16.6H, Neutrophils (%) (Auto) , Lymphocytes (%) (Auto) , Monocytes (%) (Auto) , Eosinophils (%) (Auto) , Basophils (%) (Auto) , Differential Total Cells Counted 100, Neutrophils % ( Manual) 7L, Lymphocytes % (Manual) 16L, Monocytes % (Manual) 11H, Eosinophils % (Manual) 1, Basophils % (Manual) 2, Blast Cells % 63*H, Band Neutrophils 0, Nucleated Red Blood Cells 4, Platelet Estimate DecreasedL, Platelet Morphology Normal, Anisocytosis 1+, Sodium Level 140, Potassium Level 4.6, Chloride Level 108H, Carbon Dioxide Level 24, Anion Gap 8, Blood Urea Nitrogen 25H, Creatinine 0.9, Estimat Glomerular Filtration Rate > 60, Glucose Level 199H, Calcium Level 7.3L, Total Bilirubin 0.3, Aspartate Amino Transf (AST/SGOT) 36, Alanine Aminotransferase (ALT/SGPT) 7L, Alkaline Phosphatase 51, Total Protein 5.1L, Albumin 1.8L, Globulin 3.3, Albumin/Globulin Ratio 0.5L Height (Feet): 5 Height (Inches): 3.00 Weight (Pounds): 160 General Appearance: lethargic EENT: normal ENT inspection Neck: supple Cardiovascular: normal rate Respiratory/Chest: decreased breath sounds Abdomen: normal bowel sounds, non tender, soft Extremities: non-tender Negro Reeves MD Nov 15, 2019 12:05
--- NOTE | 2019-11-15 13:25 | Diagnostic Imaging Report ---
EXAM: XRAY Abdomen 1v HISTORY: Reason For Exam: ABD PAIN COMPARISON: None. TECHNIQUE: Single frontal view of the abdomen obtained. FINDINGS: There is motion artifacts. There is relative paucity of small bowel gas. Some colonic air and stool lucencies noted in the right lower quadrant. There is no sign of free air. No acute abnormality noted of the visualized osseous structures. IMPRESSION: NONSPECIFIC BOWEL GAS PATTERN WITH RELATIVE PAUCITY OF SMALL BOWEL GAS. AIR AND STOOL LUCENCIES RIGHT LOWER QUADRANT.
--- NOTE | 2019-11-15 13:44 | Diagnostic Imaging Report ---
Procedure: XRAY Chest 1v Reason for study: Shortness of breath. Comparison films: 11/13/2019. FINDINGS: Tracheostomy and right PICC line remain in place. Slight worsening of alveolar densities noted bilaterally. Cardiac silhouette is obscured. There are likely bilateral effusions. The bony thorax appear unremarkable. IMPRESSION: Slight worsening of bilateral alveolar densities which could be worsening infiltrates and/or edema.
--- NOTE | 2019-11-15 14:40 | NUR ---
NURSE NOTES: Pt. having blood transfusion at present. No a/r noted. Afebrile. Will cont. to monitor.
[2019-11-15] MEDS: DAPTOmycin 500 MG in NS 50 ML IV SCH (16:00)
--- NOTE | 2019-11-15 16:03 | NUR ---
NURSE NOTES: IV ATB held due to blood transfusion on going. No a/r noted.
--- NOTE | 2019-11-15 16:23 | NUR ---
CASE MANAGEMENT: DCP UPON DISCHARGE PATIENT WILL TRANSFER TO [facility] [address] [place] [address] FAMILY SONJA TOM [phone] / & SON ALLA TOM [phone] IN AGREEMENT WITH PATIENT TRANSFERRING TO THIS FACILITY TRANSPORTATION VIA [facility] [id number]
--- NOTE | 2019-11-15 17:40 | NUR ---
NURSE NOTES: S/P 1 PRBC no a/r noted. Afebrile.
--- NOTE | 2019-11-15 18:04 | Surgery Progress Note ---
Surgery Progress Note Subjective Additional Comments ill appearing Objective Last 24 Hour Vital Signs Date Time Temp Pulse Resp B/P (MAP) Pulse Ox O2 Delivery O2 Flow Rate FiO2 11/15/19 16:04 96.8 115 16 124/54 (77) 100 11/15/19 16:00 116 11/15/19 16:00 Mechanical Ventilator 11/15/19 16:00 40 11/15/19 14:46 113 22 40 11/15/19 12:33 111 11/15/19 12:00 Mechanical Ventilator 11/15/19 12:00 96.0 105 20 98/58 (71) 100 11/15/19 12:00 40 11/15/19 10:37 109 21 40 11/15/19 08:19 110 11/15/19 08:00 97.7 111 18 106/49 (68) 100 11/15/19 08:00 40 11/15/19 08:00 Mechanical Ventilator 11/15/19 07:20 112 29 40 11/15/19 06:12 99.1 11/15/19 04:00 40 11/15/19 04:00 Mechanical Ventilator 11/15/19 04:00 101.8 125 24 105/55 (72) 100 11/15/19 03:32 126 25 40 11/15/19 03:08 125 11/15/19 00:00 40 11/15/19 00:00 101.7 134 27 117/52 (73) 100 11/15/19 00:00 Mechanical Ventilator 11/14/19 23:24 127 11/14/19 22:40 122 27 40 11/14/19 20:00 Mechanical Ventilator 11/14/19 20:00 98.7 114 23 112/50 (70) 99 11/14/19 20:00 40 11/14/19 19:46 114 21 40 11/14/19 19:14 109 I&O Intake and Output 11/14/19 11/15/19 19:00 07:00 Intake Total 128 ml 2248 ml Output Total 1500 ml 1350 ml Balance -1372 ml 898 ml IV Total 128 ml 2248 ml Output Urine Total 1500 ml 1350 ml Cardiovascular: RSR Respiratory: decreased breath sounds Abdomen: soft, present bowel sounds Extremities: edema, no cyanosis Laboratory Tests Test 11/15/19 04:15 White Blood Count 76.8 K/UL (4.8-10.8) *H Red Blood Count 2.50 M/UL (4.20-5.40) L Hemoglobin 7.0 G/DL (12.0-16.0) L Hematocrit 23.1 % (37.0-47.0) L Mean Corpuscular Volume 92 FL (80-99) Mean Corpuscular Hemoglobin 28.0 PG (27.0-31.0) Mean Corpuscular Hemoglobin Concent 30.3 G/DL (32.0-36.0) L Red Cell Distribution Width 16.0 % (11.6-14.8) H Platelet Count 18 K/UL (150-450) L Mean Platelet Volume 16.6 FL (6.5-10.1) H Neutrophils (%) (Auto) % (45.0-75.0) Lymphocytes (%) (Auto) % (20.0-45.0) Monocytes (%) (Auto) % (1.0-10.0) Eosinophils (%) (Auto) % (0.0-3.0) Basophils (%) (Auto) % (0.0-2.0) Differential Total Cells Counted 100 Neutrophils % (Manual) 7 % (45-75) L Lymphocytes % (Manual) 16 % (20-45) L Monocytes % (Manual) 11 % (1-10) H Eosinophils % (Manual) 1 % (0-3) Basophils % (Manual) 2 % (0-2) Blast Cells % 63 % (0-0) *H Band Neutrophils 0 % (0-8) Nucleated Red Blood Cells 4 /100 WBC Platelet Estimate Decreased L Platelet Morphology Normal Anisocytosis 1+ Sodium Level 140 MMOL/L (136-145) Potassium Level 4.6 MMOL/L (3.5-5.1) Chloride Level 108 MMOL/L (98-107) H Carbon Dioxide Level 24 MMOL/L (21-32) Anion Gap 8 mmol/L (5-15) Blood Urea Nitrogen 25 mg/dL (7-18) H Creatinine 0.9 MG/DL (0.55-1.30) Estimat Glomerular Filtration Rate > 60 mL/min (>60) Glucose Level 199 MG/DL (74-106) H Calcium Level 7.3 MG/DL (8.5-10.1) L Total Bilirubin 0.3 MG/DL (0.2-1.0) Aspartate Amino Transf (AST/SGOT) 36 U/L (15-37) Alanine Aminotransferase (ALT/SGPT) 7 U/L (12-78) L Alkaline Phosphatase 51 U/L (46-116) Total Protein 5.1 G/DL (6.4-8.2) L Albumin 1.8 G/DL (3.4-5.0) L Globulin 3.3 g/dL Albumin/Globulin Ratio 0.5 (1.0-2.7) L Plan Problems: (1) Decubitus skin ulcer Assessment & Plan: Pt presented on admission with multiple Pressure Injuries, and contractures. Large Soft Mass noted to lateral R chest ,just inferior to Breast.Soft mass that uis violaceous and denuded. Unstageable Pressure injury R thoracic. Wound presents as partially opened DTPI( L)6cm x (W)8.5cm. 95% Soft eschar flap,5% dee. Marginal erythema along borders In addition scattered linear and purple area periwound. Full thickness stage 4 Sacral Pressure Injury(L)9.3cm x (W)8.7cm. Base of wound is 95% necrotic,but bone is palpable.Mild odor noted. No exudate noted. Non-blanching erythema periwound. Unstageable Pressure Injury R trochanter(L)3.5cm x (W)4.2cm. Base of wound is 90 % soft eschar, 10% pink epithelial. Edges adherent to base of wound .No erythema induration or fluctuance periwound. Unstageable Pressure injury R Ischium(L)3.5cm x (W)2.5cm. Dry eschar at base of wound, edges are adherent with surrounding pink epithelial. No erythema or induration periwound. DTPI L trochanter(L)4cm x (W)1cm. Stable dry eschar L Hallux(L)1.6cm x (W)2cm.NO erythema fluctuance or induration periwound. L 1st metatarsal TMA noted. Stable dry eschar distal/lateral L foot (L)1.5cm x (W)3cm. No erythema, induration or fluctuance periwound. DTPI noted to plantar L foot.(L)0.9cm x (W)0.9cm. Base of wound is fluctuant, purple with maroon borders. Unstageable Pressure injury L lateral Malleolus. Stable dry eschar noted.No erythema or induration periwound. L heel is boggy with non-blanching erythema. Unstageable Pressure injury R Hallux and plantar aspect(L)3.5cm x (W)3.4cm. Soft eschar at base of wound with marginal erythema along borders. R heel is boggy with Non-Blanching erythema. Unstageable Presure injury distal/Lateral R foot . Stable dry eschar noted . No erythema of fluctuance periwound. Tx.Plan: Cleanse Sacral Wound with Saline. Loosely pack with Therahoney impregnated Kerlix.Applpy Moisture Barrier Paste periwound. Cover with Optifoam drsg. Change Daily and prn. Cleanse Soft Mass R chest with Saline. Cover with Optifoam drsg. Change Daily and prn. Cleanse wounds R trochanter, R Ischium with Saline. Apply Moisture Barrier Paste.Cover with Optifoam drsg. Change every 3 days and prn. Apply Moisture Barrier to L trochanter. Cvoer with Optifoam drsg. Change every 3 days and prn. Apply Betadine to wounds R and L foot. Cover each wound with Optifoam drsg. Changee very 3 days and prn. Apply Cavilon Skin Barrier to both heels. Cover each heel with Optifoam drsg. Change every 7 days and prn. APM/ANA Mattress overlay. turn q2h nutritional optimization (2) Malnutrition Assessment & Plan: pending g tube DAILY ESTIMATED NEEDS: Needs based on Critical care, wounds, 64kg 22-28 kcals/kg 4481-4282 total kcals 1.25-2 g protein/kg 80-128 g total protein 25-30 mL/kg 7353-7376 total fluid mLs NUTRITION DIAGNOSIS: Swallowing difficulty r/t respiratory status as evidenced by pt is trach and peg dep, currently NPO, on TPN. CURRENT TF:NPO, on TPN ENTERAL NUTRITION RECOMMENDATIONS: VITAL AF 1.2 @ 55ml/hr x24 hrs to provide 1320ml, 1584 kcal, 99g pro, 1071ml free H2O - Post PEJ placement, initiate Vital AF 1.2 @ 25ml/hr x 6hrs, advance 10ml q 4- 6 hrs as tolerated to goal. - Flush per MD - WYATT over 30 degrees PARENTERAL NUTRITION RECOMMENDATIONS: D/AA Rate: 70 IL Rate: 8 Total Rate: 78 Volume: 1872 % Dextrose: 18 % AA: 5.5 Energy (kcals/kg): 1781 Protein (g/kg protein): 92 Nonprotein KCALS: 1412 GIR (mg CHO/kg/min): 3.3 % Fat KCALS: 22 NCP: N Ratio: 96:1 TPN Comment: - Maintain current TPN: -> D18%, AA 5.5% @70ml/hr w/ 20%IL @8ml/hr - all 3:1 - TF at goal meets 100% est needs, provides 28 kcal/kg and 1.4g/kg pro. - GIR<5 - IL <30% ADDITIONAL RECOMMENDATIONS: 1) Per SNF: 65 inches (5'5"); 141 lbs (64.1kg) 2) Wound care: add MEIR BID via GT w/ TF order 3) Monitor lytes, BG, and LFT's on TPN - check phos and mag (not checked since TPN initiation) (3) Anemia Assessment & Plan: transfused trend labs no active bleeding stool study GI eval (4) UTI (urinary tract infection) (5) Tracheostomy dependence Assessment & Plan: Findings: The left hemidiaphragm is elevated. Atelectatic changes are present in the left lung base. There is minimal right basilar atelectasis. No definite infiltrates. There is a tracheostomy. Impression: Elevated left hemidiaphragm with considerable left basilar atelectasis. Less extensive right basilar atelectasis. Inspiration is suboptimal. Interim development of opacity of the left mid and lower lung. The left hemidiaphragm is obscured. Right lung is probably clear , although there is crowding of bronchovascular lung volumes. Tracheostomy remains. Impression: Since 11/01/2019, interim development of left mid and lower lung infiltrates versus edema and possibly pleural fluid Juan Houser Nov 15, 2019 18:04
--- NOTE | 2019-11-15 19:10 | NUR ---
NURSE NOTES: Started platelets transfusion. Endorsed to [facility] that currently running platelets.
--- NOTE | 2019-11-15 19:14 | NUR ---
RESPIRATORY NOTE: Received pt on AC 20, 400VT, 40%, PEEP +5. Pt is trach-dependent w/ a cuffed, Shiley 6 tube. Pt obtunded/flat effect. B/S love. rhonchi, sxn small amounts of thick/thin, pale-yellow secretions. Vent plugged into red outlet, ambubag at bedside. Pt in no apparent distress at this time. Will continue plan of care.
--- NOTE | 2019-11-15 19:15 | NUR ---
NURSE NOTES: platelets started by hand off nurse Bertha- VS taken15 minutes after transfusion vital signs documented- in chart- pt. remains stable- will contine to monitor pt.
--- NOTE | 2019-11-15 19:20 | NUR ---
"NURSE NOTES: Received patient from SRIKAN[facility] Stone. Patient in bed with eyes open- obtunded. No signs or symptoms of acute cardiac or respiratory distress noted, pt. appears to be tolerating current vent settings as ordered: A/C 20 | TV 600 | FiO2 40% | Peep 5- No respiratory distress noted. Patient is currently NPO as endorsed. Bailey intact and draining to gravity. Patient appears to be clean and dry. Noted with right upper arm PICC double lumen running TPN at 78 mL/hour- Fluids heldprior to shift D5 N/S + 20 KCL at 50 mL/hr- as pt. is running 1 pack of platelets, Safety measures continued, skin precautions observed, Bed in lowest and locked position. Call light within reach. Side rails up x3. Will continue to monitor and with plan of care. Addendum: 11/16/19 at 0711 by BERRY PADILLA RN RN correction to message above TV is 400 not 600."
--- NOTE | 2019-11-15 19:29 | NUR ---
HAND-OFF: Report given to Terra DUKE. Pt. remain stable.
--- NOTE | 2019-11-15 20:00 | NUR ---
NURSE NOTES: Platelets transfused- pt. appears to have tolerated well- VS taken after transfusion- vital signs documented- in chart- pt. remains stable- will continue to monitor pt. and with plan of care.
[2019-11-15] MEDS: FAT EMULSION 20% IV SCH (20:01)
[2019-11-15] MEDS: TPN IV SCH (20:01)
[2019-11-15] MEDS: Sennosides 8.6mg tab GT SCH (20:04)
[2019-11-15] MEDS: Dyna-Hex 2% Top Sol 2oz TOPIC SCH (20:04)
--- NOTE | 2019-11-15 20:07 | Infectious Diseases Prog Note ---
Assessment/Plan Assessment/Plan ASSESSMENT AND PLAN: 1. 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 fungemia, TPN ? line infection - picc placed 11/02/19, repeat blood cultures show acinetobacter - daptomycin (11/01), polymyxin (11/04) , meropenem (11/09), levofloxacin (11/11) - micafungin (11/12) for fungemia coverage - change picc line - ordered, pending - surveillance blood cultures neg so far - TTE - no vegetations identified - monitor labs and chest x-ray - wound management per surgery - leukocytosis maybe secondary to AML blast crises/flare 2. Trach, vent respiratory failure. 3. Dysphagia, G-tube. 4. Anemia. 5. Thrombocytopenia - severe 6. Leukocytosis. 7. Malnutrition. 8. Ovarian mass with neoplasm. 9. Parkinson's. 10. Dementia. 11. Skin care per Surgery and protocol. 12. Allergies to penicillin, vancomycin. 13. Social history is negative. 14. Family history is noncontributory. 15. MAR was noted. 16. Case was discussed with RN. 17. Continue treatment per primary consultants. 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 Subjective Constitutional: Reports: fever, fatigue, other - + trach and vent HEENT: Reports: congestion Respiratory: Reports: shortness of breath Cardiovascular: Denies: chest pain Gastrointestinal/Abdominal: Denies: nausea, vomiting Genitourinary: Reports: other - + dong Neurologic: Reports: weakness Skin: Denies: rash Hematologic: Denies: bleeding Musculoskeletal: Denies: pain Allergies: Coded Allergies: PENICILLINS (Verified Allergy, Unknown, 11/01/19) VANCOMYCIN (Verified Allergy, Unknown, 11/01/19) Uncoded Allergies: PENICI (Allergy, Unknown, 11/01/19) Objective Vital Signs Last 24 Hour Vital Signs Date Time Temp Pulse Resp B/P (MAP) Pulse Ox O2 Delivery O2 Flow Rate FiO2 11/15/19 19:11 133 28 40 11/15/19 16:04 96.8 115 16 124/54 (77) 100 11/15/19 16:00 116 11/15/19 16:00 Mechanical Ventilator 11/15/19 16:00 40 11/15/19 14:46 113 22 40 11/15/19 12:33 111 11/15/19 12:00 Mechanical Ventilator 11/15/19 12:00 96.0 105 20 98/58 (71) 100 11/15/19 12:00 40 11/15/19 10:37 109 21 40 11/15/19 08:19 110 11/15/19 08:00 97.7 111 18 106/49 (68) 100 11/15/19 08:00 40 11/15/19 08:00 Mechanical Ventilator 11/15/19 07:20 112 29 40 11/15/19 06:12 99.1 11/15/19 04:00 40 11/15/19 04:00 Mechanical Ventilator 11/15/19 04:00 101.8 125 24 105/55 (72) 100 11/15/19 03:32 126 25 40 11/15/19 03:08 125 11/15/19 00:00 40 11/15/19 00:00 101.7 134 27 117/52 (73) 100 11/15/19 00:00 Mechanical Ventilator 11/14/19 23:24 127 11/14/19 22:40 122 27 40 Height (Feet): 5 Height (Inches): 3.00 Weight (Pounds): 160 General Appearance: other - lethargic, trach and vent HEENT: normocephalic, atraumatic, anicteric, no JVD, status post trach Respiratory/Chest: crackles/rales, rhonchi - bilaterally Cardiovascular: normal rate, regular rhythm Abdomen: normal bowel sounds, soft, non tender, no organomegaly, non distended Genitourinary: other - + dong - urine slt cloudy Extremities: no cyanosis Skin: no rash Neurologic/Psychiatric: 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 Interval placement of right PICC line tip to the mid SVC. 2. Hypoventilatory lungs. Bibasilar atelectasis/consolidations, similar to prior study. 3. Probable bilateral pleural effusions. Chest x-ray - 11/07/19- Procedure: XRAY Chest 1v Procedure: XRAY Chest 1v Reason for study: Shortness of breath. Comparison films: 11/05/2019. FINDINGS: Tracheostomy and right PICC line remain in place. There is limited inspiration with bibasilar densities unchanged. Cardiac and mediastinal silhouette are within normal limits. No large effusion seen The bony thorax appear unremarkable. IMPRESSION: NO SIGNIFICANT CHANGE COMPARED TO PREVIOUS EXAM. CT abdomen and pelvis: IMPRESSION: BILATERAL SMALL PLEURAL EFFUSIONS AND DEPENDENT INFILTRATES. HUGE SEPTATED CYSTIC MASS ARISING FROM THE PELVIS EXTENDING INTO THE ABDOMEN MOST LIKELY OF OVARIAN ORIGIN. SMALL AMOUNT OF FREE FLUID ADJACENT TO THE HEPATIC AND SPLENIC EDGE WELL IN THE PELVIS. LEFT RENAL STONE. POSSIBLE SLUDGE OR NONCALCIFIED STONES LAYERING IN THE GALLBLADDER. LEFT LOWER QUADRANT STOMA. SEVERE DEGENERATIVE CHANGES AND DEXTROSCOLIOSIS OF THE SPINE. ANASARCA. Abdominal US: IMPRESSION: 1. Sludge and possible small stones in the gallbladder. No gallbladder wall thickening or pericholecystic fluid. 2. Ascites. 3. Small right pleural effusion. Chest x-ray - 11/10/19 - Procedure: XRAY Chest 1v Procedure: XRAY Chest 1v Reason for study: Reason For Exam: SOB Comparison films: 11/07/2019. FINDINGS: Tracheostomy remains in place. Basilar infiltrates not significantly changed. Small effusions unchanged. Cardiac silhouette stable. The bony thorax appear unremarkable. IMPRESSION: NO SIGNIFICANT CHANGE COMPARED TO PREVIOUS EXAM Microbiology Date/Time Source Procedure Growth Status 11/13/19 03:52 Blood Blood Culture - Preliminary NO GROWTH AFTER 24 HOURS Resulted 11/13/19 03:40 Blood Blood Culture - Preliminary NO GROWTH AFTER 24 HOURS Resulted 11/13/19 04:00 Indwelling Cath Urine Culture - Preliminary YEAST Resulted Laboratory Tests Test 11/15/19 04:15 White Blood Count 76.8 K/UL (4.8-10.8) *H Red Blood Count 2.50 M/UL (4.20-5.40) L Hemoglobin 7.0 G/DL (12.0-16.0) L Hematocrit 23.1 % (37.0-47.0) L Mean Corpuscular Volume 92 FL (80-99) Mean Corpuscular Hemoglobin 28.0 PG (27.0-31.0) Mean Corpuscular Hemoglobin Concent 30.3 G/DL (32.0-36.0) L Red Cell Distribution Width 16.0 % (11.6-14.8) H Platelet Count 18 K/UL (150-450) L Mean Platelet Volume 16.6 FL (6.5-10.1) H Neutrophils (%) (Auto) % (45.0-75.0) Lymphocytes (%) (Auto) % (20.0-45.0) Monocytes (%) (Auto) % (1.0-10.0) Eosinophils (%) (Auto) % (0.0-3.0) Basophils (%) (Auto) % (0.0-2.0) Differential Total Cells Counted 100 Neutrophils % (Manual) 7 % (45-75) L Lymphocytes % (Manual) 16 % (20-45) L Monocytes % (Manual) 11 % (1-10) H Eosinophils % (Manual) 1 % (0-3) Basophils % (Manual) 2 % (0-2) Blast Cells % 63 % (0-0) *H Band Neutrophils 0 % (0-8) Nucleated Red Blood Cells 4 /100 WBC Platelet Estimate Decreased L Platelet Morphology Normal Anisocytosis 1+ Sodium Level 140 MMOL/L (136-145) Potassium Level 4.6 MMOL/L (3.5-5.1) Chloride Level 108 MMOL/L (98-107) H Carbon Dioxide Level 24 MMOL/L (21-32) Anion Gap 8 mmol/L (5-15) Blood Urea Nitrogen 25 mg/dL (7-18) H Creatinine 0.9 MG/DL (0.55-1.30) Estimat Glomerular Filtration Rate > 60 mL/min (>60) Glucose Level 199 MG/DL (74-106) H Calcium Level 7.3 MG/DL (8.5-10.1) L Total Bilirubin 0.3 MG/DL (0.2-1.0) Aspartate Amino Transf (AST/SGOT) 36 U/L (15-37) Alanine Aminotransferase (ALT/SGPT) 7 U/L (12-78) L Alkaline Phosphatase 51 U/L (46-116) Total Protein 5.1 G/DL (6.4-8.2) L Albumin 1.8 G/DL (3.4-5.0) L Globulin 3.3 g/dL Albumin/Globulin Ratio 0.5 (1.0-2.7) L Current Medications Medications (Trade) Dose Ordered Sig/Inan Route PRN Reason Start Time Stop Time Status Last Admin Dose Admin Acetaminophen (Tylenol) 650 mg Q4H PRN GT fever 100.4, mild pain 11/10/19 10:00 12/01/19 23:14 Acetaminophen (Tylenol) 650 mg Q4H PRN RECTAL Temp >100.5 11/08/19 21:30 12/08/19 21:29 11/15/19 05:42 Albuterol/ Ipratropium (Albuterol/ Ipratropium) 3 ml Q4H PRN HHN Shortness of Breath 11/15/19 09:45 11/20/19 09:44 Ascorbic Acid (Vitamin C) 500 mg DAILY GT 11/02/19 09:00 12/02/19 08:59 11/08/19 08:42 Carbidopa/Levodopa (Sinemet 25/100) 2 tab QID GT 11/02/19 09:00 12/02/19 08:59 11/08/19 08:42 Chlorhexidine Gluconate (Josefa-Hex 2%) 1 applic DAILY@2000 TOPIC 11/15/19 20:00 02/13/20 19:59 11/14/19 20:16 Daptomycin 500 mg/ Sodium Chloride 50 ml @ 100 mls/hr Q24H IV 11/14/19 16:00 11/21/19 15:59 11/14/19 15:52 Dextrose 1,000 ml @ 0 mls/hr Q24H PRN IV PN interrupted or unavailable 11/09/19 20:00 12/09/19 19:59 Dextrose (Dextrose 50%) 25 ml Q30M PRN IV Hypoglycemia 11/09/19 20:00 02/07/20 19:59 Dextrose (Dextrose 50%) 50 ml Q30M PRN IV Hypoglycemia 11/09/19 20:00 02/07/20 19:59 Dextrose/ Electrolytes 1,000 ml @ 50 mls/hr Q20H IV 11/14/19 18:00 12/14/19 17:59 11/14/19 18:07 Docusate Sodium (Colace) 100 mg DAILY GT 11/02/19 09:00 12/02/19 08:59 11/08/19 08:41 Entacapone (Comtan) 400 mg THREE TIMES A DAY ORAL 11/10/19 13:00 12/02/19 17:59 Fat Emulsion Intravenous 192 ml/Amino Acids/ Electrolytes/ Dextrose 1,872 ml @ 78 mls/hr Q24H IV 11/11/19 20:00 12/11/19 19:59 11/14/19 20:15 Heparin Sodium/ Sodium Chloride (Heparin 1000 units/500ml Premix) 1,000 unit ONCE PRN IV picc line placement 11/15/19 09:00 11/16/19 08:59 Insulin Aspart (NovoLOG) Q6HR SUBQ 11/06/19 12:00 02/04/20 11:59 11/15/19 13:37 Levofloxacin 50 ml @ 50 mls/hr Q24H IVPB 11/13/19 09:00 11/20/19 08:59 11/15/19 10:12 Lidocaine HCl (Xylocaine 1% 30ml) 30 ml ONCE PRN INJ picc line placement 11/15/19 09:00 11/16/19 08:59 Meropenem 1 gm/ Sodium Chloride 100 ml @ 200 mls/hr Q8HR IVPB 11/13/19 22:00 11/18/19 21:59 11/15/19 05:33 Metoclopramide HCl (Reglan) 5 mg Q6H PRN IVP nausea or vomiting 11/01/19 23:15 12/01/19 23:14 11/02/19 12:51 Micafungin Sodium 100 mg/Sodium Chloride 110 ml @ 110 mls/hr Q24H IVPB 11/13/19 21:00 11/20/19 20:59 11/14/19 20:16 Multivitamins (Multivitamins W/ Minerals 15ml Liquid) 15 ml DAILY GT 11/02/19 09:00 12/02/19 08:59 11/08/19 08:42 Ondansetron HCl (Zofran) 4 mg Q4H PRN IVP Nausea & Vomiting 11/01/19 23:15 12/01/19 23:14 Pantoprazole (Protonix) 40 mg DAILY IVP 11/05/19 09:00 12/05/19 08:59 11/15/19 10:16 Polyethylene Glycol (Miralax) 17 gm DAILY PRN GT Constipation 11/02/19 08:30 12/02/19 07:59 Polymyxin B Sulfate 305170 units/Dextrose 550 ml @ 550 mls/hr EVERY 12 HOURS IV 11/10/19 21:00 11/17/19 20:59 11/15/19 10:12 Quetiapine Fumarate (SEROqueL) 50 mg QHS GT 11/02/19 21:00 12/17/19 20:59 11/07/19 21:36 Sennosides (Senokot) 8.6 mg QHS GT 11/02/19 21:00 12/02/19 20:59 11/07/19 21:32 Zinc Oxide (Desitin) 1 applic FOUR TIMES A DAY TOPIC 11/04/19 14:00 12/04/19 13:59 11/15/19 13:38 González Yadav MD Nov 15, 2019 20:07
--- NOTE | 2019-11-15 20:08 | NUR ---
NURSE NOTES: 2100 G tube meds not administered as pt. has no G tube access- doctor aware.
--- NOTE | 2019-11-15 20:10 | NUR ---
NURSE NOTES: cooling measures applied as pt. has a temp- will administer rectal Tylenol as ordered per eMAR protocol- pt. remains stable, will continue to monitor pt.
[2019-11-15] MEDS ORDERED: Polymyxin B Sulfate 500,000 UNITS in D5W 500ml 550 ML IV SCH (21:00)
[2019-11-15] MEDS: Micafungin 100 MG in NS 110 ML IVPB SCH (21:39)
[2019-11-16] VITALS: BP 101/50
--- NOTE | 2019-11-16 00:35 | NUR ---
NURSE NOTES: patients temp appears to be trending up again -will continue with cooling measures and administer Tylenol rectally as ordered per eMAR- will continue to monitor pt. and with plan of care.
[2019-11-16] MEDS: Acetaminophen 650 MG SUPP RECTAL PRN (00:40)
[2019-11-16 04:00] VITALS: BP 103/54
[2019-11-16 04:45] LABS: HEMATOCRIT 22.8 % (37.0-47.0); HEMOGLOBIN 7.1 G/DL (12.0-16.0); MEAN CORPUSCULAR VOLUME 91 FL (80-99); PLATELET COUNT 31 K/UL (150-450); RED BLOOD COUNT 2.51 M/UL (4.20-5.40); RED CELL DISTRIBUTION WIDTH 15.6 % (11.6-14.8)
[2019-11-16 05:08] LABS: ANION GAP 8 mmol/L (5-15); BLOOD UREA NITROGEN 26 mg/dL (7-18); CALCIUM 7.7 MG/DL (8.5-10.1); CARBON DIOXIDE 26 MMOL/L (21-32); CHLORIDE 109 MMOL/L (98-107); CREATININE 0.8 MG/DL (0.55-1.30); POTASSIUM 3.8 MMOL/L (3.5-5.1); SODIUM 143 MMOL/L (136-145)
[2019-11-16 05:12] LABS: WHITE BLOOD COUNT 59.9 K/UL (4.8-10.8)
[2019-11-16] MEDS: NovoLOG Insulin Flexpen SUBQ SCH ×3 (05:19→18:00)
--- NOTE | 2019-11-16 07:06 | NUR ---
HAND-OFF: Report given to AlbertRN, pt. remains stable and no signs of distress noted. Aware to f/u on any am abnormal labs and PICC line insertion per DR. Conte is pt. is stable
--- NOTE | 2019-11-16 07:15 | NUR ---
NURSE NOTES:RECEIVED BED SIDE REPORT FROM KELLY WATER [employer]. RECEIVED PT WITH HOB ELEVATED 45 DEGREE OBTUNDED TRACH TO VENT DEPENDENT.PT TOLERATING WELL CURRENTS VENT SETTINGS, OS SAT 100%. RENDERED TRACH CARE AND ORAL HYGIENE. PT WITH DRY DSG ON ABD LT UQ NOTED AND SMALL DSG ON RT UQ ALSO INTACT. PT RECEIVING TPN @ 78CC/HRS INFUSING WELL CONNECTED TO PICC-LINE ON RT UA ALSO IVF,S CONNECTED TO PICC-LINE AND INFUSING WELL. FULL BODY ASSESSMENT DONE.PT REPOSITIONED Q2HRS TO PROVIDE COMFORT AND PREVENT FURTHER SKIN BREAK DOWN. WILL CONT TO MONITOR.
[2019-11-16 08:00] VITALS: BP 106/54
--- NOTE | 2019-11-16 08:40 | NUR ---
RD ASSESSMENT & RECOMMENDATIONS SEE CARE ACTIVITY FOR COMPLETE ASSESSMENT DAILY ESTIMATED NEEDS: Needs based on Critical care, wounds, 64kg 22-28 kcals/kg 9324-0039 total kcals 1.25-2 g protein/kg 80-128 g total protein 25-30 mL/kg 1533-4501 total fluid mLs NUTRITION DIAGNOSIS: Swallowing difficulty r/t respiratory status as evidenced by pt is trach and peg dep, currently NPO, on TPN, . CURRENT TF:NPO, on TPN PARENTERAL NUTRITION RECOMMENDATIONS: D/AA Rate: 70 IL Rate: 8 Total Rate: 78 Volume: 1872 % Dextrose: 18 % AA: 5.5 Energy (kcals/kg): 1781 Protein (g/kg protein): 92 Nonprotein KCALS: 1412 GIR (mg CHO/kg/min): 3.3 % Fat KCALS: 22 NPC: N Ratio: 96:1 TPN Comment: - Maintain current TPN: -> D18%, AA 5.5% @70ml/hr w/ 20%IL @8ml/hr - all 3:1 - TF at goal meets 100% est needs, provides 28 kcal/kg and 1.4g/kg pro. - GIR<5 - IL <30% ADDITIONAL RECOMMENDATIONS: 1) Per SNF: 65 inches (5'5"); 141 lbs (64.1kg) 2) Wound care: add MEIR BID via GT w/ TF order; hold w/ TPN 3) Monitor lytes, BG, and LFT's on TPN - check phos and mag (last Mag 1.7) 4) With TPN at goal rec to HOLD added D5
[2019-11-16] MEDS: Ascorbic Acid 500mg tab GT SCH (09:00)
[2019-11-16] MEDS: Levodopa/Carbidopa 25/100 tab GT SCH ×4 (09:00→20:36)
[2019-11-16] MEDS: Docusate 100mg/10ml Liq GT SCH (09:00)
[2019-11-16] MEDS: Multivitamins W/Minerals 15 ML UDC GT SCH (09:00)
[2019-11-16] MEDS: Entacapone 200mg tab ORAL SCH ×3 (09:00→18:00)
[2019-11-16] MEDS: Pantoprazole Inj IVP SCH (09:49)
[2019-11-16] MEDS: Polymyxin B Sulfate 500,000 UNITS in D5W 500ml 550 ML IV SCH ×3 (09:56→21:42)
[2019-11-16] MEDS: Desitin Rash Paste TOPIC SCH ×4 (10:36→22:21)
--- NOTE | 2019-11-16 10:42 | Internal Med Progress Note ---
Subjective Date of Service: Nov 16, 2019 Physician Name Fredrick Prince Attending Physician Fredrick Prince MD Current Medications Medications (Trade) Dose Ordered Sig/Inna Route PRN Reason Start Time Stop Time Status Last Admin Dose Admin Acetaminophen (Tylenol) 650 mg Q4H PRN GT fever 100.4, mild pain 11/10/19 10:00 12/01/19 23:14 Acetaminophen (Tylenol) 650 mg Q4H PRN RECTAL Temp >100.5 11/08/19 21:30 12/08/19 21:29 11/16/19 00:40 Albuterol/ Ipratropium (Albuterol/ Ipratropium) 3 ml Q4H PRN HHN Shortness of Breath 11/15/19 09:45 11/20/19 09:44 Ascorbic Acid (Vitamin C) 500 mg DAILY GT 11/02/19 09:00 12/02/19 08:59 11/08/19 08:42 Carbidopa/Levodopa (Sinemet 25/100) 2 tab QID GT 11/02/19 09:00 12/02/19 08:59 11/08/19 08:42 Chlorhexidine Gluconate (Josefa-Hex 2%) 1 applic DAILY@2000 TOPIC 11/15/19 20:00 02/13/20 19:59 11/15/19 20:04 Daptomycin 500 mg/ Sodium Chloride 50 ml @ 100 mls/hr Q24H IV 11/14/19 16:00 11/21/19 15:59 11/14/19 15:52 Dextrose 1,000 ml @ 0 mls/hr Q24H PRN IV PN interrupted or unavailable 11/09/19 20:00 12/09/19 19:59 Dextrose (Dextrose 50%) 25 ml Q30M PRN IV Hypoglycemia 11/09/19 20:00 02/07/20 19:59 Dextrose (Dextrose 50%) 50 ml Q30M PRN IV Hypoglycemia 11/09/19 20:00 02/07/20 19:59 Dextrose/ Electrolytes 1,000 ml @ 50 mls/hr Q20H IV 11/14/19 18:00 12/14/19 17:59 11/15/19 21:39 Docusate Sodium (Colace) 100 mg DAILY GT 11/02/19 09:00 12/02/19 08:59 11/08/19 08:41 Entacapone (Comtan) 400 mg THREE TIMES A DAY ORAL 11/10/19 13:00 12/02/19 17:59 Fat Emulsion Intravenous 192 ml/Amino Acids/ Electrolytes/ Dextrose 1,872 ml @ 78 mls/hr Q24H IV 11/11/19 20:00 12/11/19 19:59 11/15/19 20:01 Insulin Aspart (NovoLOG) Q6HR SUBQ 11/06/19 12:00 02/04/20 11:59 11/16/19 05:19 Levofloxacin 50 ml @ 50 mls/hr Q24H IVPB 11/13/19 09:00 11/29/19 23:59 11/16/19 10:05 Meropenem 1 gm/ Sodium Chloride 100 ml @ 200 mls/hr Q8HR IVPB 11/13/19 22:00 11/27/19 23:59 11/16/19 05:18 Metoclopramide HCl (Reglan) 5 mg Q6H PRN IVP nausea or vomiting 11/01/19 23:15 12/01/19 23:14 11/02/19 12:51 Micafungin Sodium 100 mg/Sodium Chloride 110 ml @ 110 mls/hr Q24H IVPB 11/13/19 21:00 11/23/19 23:59 11/15/19 21:39 Multivitamins (Multivitamins W/ Minerals 15ml Liquid) 15 ml DAILY GT 11/02/19 09:00 12/02/19 08:59 11/08/19 08:42 Ondansetron HCl (Zofran) 4 mg Q4H PRN IVP Nausea & Vomiting 11/01/19 23:15 12/01/19 23:14 Pantoprazole (Protonix) 40 mg DAILY IVP 11/05/19 09:00 12/05/19 08:59 11/16/19 09:49 Polyethylene Glycol (Miralax) 17 gm DAILY PRN GT Constipation 11/02/19 08:30 12/02/19 07:59 Polymyxin B Sulfate 689189 units/Dextrose 550 ml @ 550 mls/hr EVERY 12 HOURS IV 11/16/19 09:00 11/23/19 08:59 11/16/19 09:56 Quetiapine Fumarate (SEROqueL) 50 mg QHS GT 11/02/19 21:00 12/17/19 20:59 11/07/19 21:36 Sennosides (Senokot) 8.6 mg QHS GT 11/02/19 21:00 12/02/19 20:59 11/07/19 21:32 Zinc Oxide (Desitin) 1 applic FOUR TIMES A DAY TOPIC 11/04/19 14:00 12/04/19 13:59 11/15/19 20:08 Allergies: Coded Allergies: PENICILLINS (Verified Allergy, Unknown, 11/01/19) VANCOMYCIN (Verified Allergy, Unknown, 11/01/19) Uncoded Allergies: PENICI (Allergy, Unknown, 11/01/19) ROS Limited/Unobtainable: Yes All Systems: reviewed and negative except above Subjective non verbal, chronic trach GJ tube failed due to big whole on TPN worsening down trending s/p ome unt platelet and PRBC transfer to LTACH halted yesterday due to family's disagreement. CM aware. Objective Last Vital Signs Date Time Temp Pulse Resp B/P (MAP) Pulse Ox O2 Delivery O2 Flow Rate FiO2 11/16/19 08:00 97.9 100 20 106/54 (71) 100 11/16/19 07:34 40 11/16/19 04:00 Mechanical Ventilator General Appearance: no apparent distress Cardiovascular: normal rate, regular rhythm, systolic murmur Respiratory/Chest: rhonchi - left, other - trach Abdomen: normal bowel sounds, non tender, soft Edema: other - +edema Neurologic: unresponsiveness, aphasia Skin: warm/dry, other - various stages decubiti/press ulcers Laboratory Tests Test 11/16/19 03:15 White Blood Count 59.9 K/UL (4.8-10.8) *H Red Blood Count 2.51 M/UL (4.20-5.40) L Hemoglobin 7.1 G/DL (12.0-16.0) L Hematocrit 22.8 % (37.0-47.0) L Mean Corpuscular Volume 91 FL (80-99) Mean Corpuscular Hemoglobin 28.2 PG (27.0-31.0) Mean Corpuscular Hemoglobin Concent 31.0 G/DL (32.0-36.0) L Red Cell Distribution Width 15.6 % (11.6-14.8) H Platelet Count 31 K/UL (150-450) #L Mean Platelet Volume 9.4 FL (6.5-10.1) Neutrophils (%) (Auto) % (45.0-75.0) Lymphocytes (%) (Auto) % (20.0-45.0) Monocytes (%) (Auto) % (1.0-10.0) Eosinophils (%) (Auto) % (0.0-3.0) Basophils (%) (Auto) % (0.0-2.0) Differential Total Cells Counted 100 Neutrophils % (Manual) 2 % (45-75) L Lymphocytes % (Manual) 23 % (20-45) Monocytes % (Manual) 29 % (1-10) H Eosinophils % (Manual) 1 % (0-3) Basophils % (Manual) 1 % (0-2) Blast Cells % 44 % (0-0) *H Band Neutrophils 0 % (0-8) Nucleated Red Blood Cells 2 /100 WBC Platelet Estimate Decreased L Platelet Morphology Normal Polychromasia 1+ Hypochromasia 3+ Anisocytosis 1+ Sodium Level 143 MMOL/L (136-145) Potassium Level 3.8 MMOL/L (3.5-5.1) Chloride Level 109 MMOL/L (98-107) H Carbon Dioxide Level 26 MMOL/L (21-32) Anion Gap 8 mmol/L (5-15) Blood Urea Nitrogen 26 mg/dL (7-18) H Creatinine 0.8 MG/DL (0.55-1.30) Estimat Glomerular Filtration Rate > 60 mL/min (>60) Glucose Level 157 MG/DL (74-106) H Calcium Level 7.7 MG/DL (8.5-10.1) L Microbiology Date/Time Source Procedure Growth Status 11/14/19 14:05 Blood Blood Culture - Preliminary NO GROWTH AFTER 24 HOURS Resulted 11/14/19 14:00 Blood Blood Culture - Preliminary NO GROWTH AFTER 24 HOURS Resulted Intake and Output 11/15/19 11/16/19 19:00 07:00 Intake Total 1236 ml 2139 ml Output Total 1200 ml 1000 ml Balance 36 ml 1139 ml IV Total 1236 ml 2139 ml Output Urine Total 1200 ml 1000 ml Objective unable to place J tube .on TPN Assessment/Plan Status: stable, progressing Assessment/Plan Impression: sepsis on admission septic shock line sepsis acinectobacter bacteremia fungal cystitis 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 /son NOT in agreement. ?appeal DC. CM f/u abx broaden per ID worsening wbc could be AML flare microfungin on TPN. d/w GI PGE/J in few week unable to put PEG J tube due to large whole KCL IV replete prn s/p Mg sulfate IV 2 gram leukocytosis could be AML flare IV abx per ID wound care f/u cx ID f/u electrolyte replete as needed enteral feeding ventilator pulm HHN dong pain control dc aricept, allopurinol DNAR status Fredrick Prince MD Internal Medicine [phone] time spent today 50 minutes stamp time on this note may NOT be the actual encounter time. Fredrick Prince MD Nov 16, 2019 10:42
--- NOTE | 2019-11-16 11:09 | General Progress Note ---
Assessment/Plan Status: stable, progressing Assessment/Plan: 1. AML. 2. Respiratory failure with vent. 3. Dysphagia with G-tube. 4. Ovarian mass. 5. Advanced Parkinson disease. 6. Anemia requiring blood transfusion in the past. 7. Dementia. 8. Pancytopenia. unable to place GJT due to very large gastrocutaneous fibula on TPN hypotension abx per ID s/p blood and plt transfusion less leakage from the old GT site pending GJT placement when leakage is less poor prognosis Subjective ROS Limited/Unobtainable: No Allergies: Coded Allergies: PENICILLINS (Verified Allergy, Unknown, 11/01/19) VANCOMYCIN (Verified Allergy, Unknown, 11/01/19) Uncoded Allergies: PENICI (Allergy, Unknown, 11/01/19) Objective Last 24 Hour Vital Signs Date Time Temp Pulse Resp B/P (MAP) Pulse Ox O2 Delivery O2 Flow Rate FiO2 11/16/19 08:00 97.9 100 20 106/54 (71) 100 11/16/19 08:00 40 11/16/19 08:00 98 11/16/19 08:00 Mechanical Ventilator 11/16/19 07:34 98 21 40 11/16/19 04:00 98.1 98 20 103/54 (70) 100 11/16/19 04:00 Mechanical Ventilator 11/16/19 04:00 40 11/16/19 03:20 100 11/16/19 02:51 107 26 40 11/16/19 01:10 98.9 11/16/19 00:00 100.0 119 22 101/50 (67) 99 11/16/19 00:00 Mechanical Ventilator 11/16/19 00:00 40 11/15/19 23:32 121 11/15/19 22:57 124 27 40 11/15/19 20:00 99.5 131 20 121/73 (89) 100 11/15/19 20:00 40 11/15/19 20:00 40 11/15/19 20:00 Mechanical Ventilator 11/15/19 20:00 133 11/15/19 19:15 99.3 125 18 111/73 (86) 100 11/15/19 19:11 133 28 40 11/15/19 16:04 96.8 115 16 124/54 (77) 100 11/15/19 16:00 116 11/15/19 16:00 Mechanical Ventilator 11/15/19 16:00 40 11/15/19 14:46 113 22 40 11/15/19 12:33 111 11/15/19 12:00 Mechanical Ventilator 11/15/19 12:00 96.0 105 20 98/58 (71) 100 11/15/19 12:00 40 Intake and Output 11/15/19 11/16/19 19:00 07:00 Intake Total 1236 ml 2139 ml Output Total 1200 ml 1000 ml Balance 36 ml 1139 ml IV Total 1236 ml 2139 ml Output Urine Total 1200 ml 1000 ml Laboratory Tests 11/16/19 03:15: White Blood Count 59.9*H, Red Blood Count 2.51L, Hemoglobin 7.1L, Hematocrit 22.8L, Mean Corpuscular Volume 91, Mean Corpuscular Hemoglobin 28.2, Mean Corpuscular Hemoglobin Concent 31.0L, Red Cell Distribution Width 15.6H, Platelet Count 31#L, Mean Platelet Volume 9.4, Neutrophils (%) (Auto) , Lymphocytes (%) (Auto) , Monocytes (%) (Auto) , Eosinophils (%) (Auto) , Basophils (%) (Auto) , Differential Total Cells Counted 100, Neutrophils % ( Manual) 2L, Lymphocytes % (Manual) 23, Monocytes % (Manual) 29H, Eosinophils % ( Manual) 1, Basophils % (Manual) 1, Blast Cells % 44*H, Band Neutrophils 0, Nucleated Red Blood Cells 2, Platelet Estimate DecreasedL, Platelet Morphology Normal, Polychromasia 1+, Hypochromasia 3+, Anisocytosis 1+, Sodium Level 143, Potassium Level 3.8, Chloride Level 109H, Carbon Dioxide Level 26, Anion Gap 8, Blood Urea Nitrogen 26H, Creatinine 0.8, Estimat Glomerular Filtration Rate > 60 , Glucose Level 157H, Calcium Level 7.7L Height (Feet): 5 Height (Inches): 3.00 Weight (Pounds): 158 General Appearance: lethargic EENT: normal ENT inspection Neck: supple Cardiovascular: normal rate Respiratory/Chest: decreased breath sounds Abdomen: normal bowel sounds, non tender, soft Extremities: non-tender Negro Reeves MD Nov 16, 2019 11:09
[2019-11-16 12:00] VITALS: BP 120/59
--- NOTE | 2019-11-16 12:06 | NUR ---
NURSE NOTES: PT CAME BACK FROM NUCLEAR MED.PT TOLERATED WELL HIDA SCAN PROCEDURE. WILL CONT TO MONITOR.
--- NOTE | 2019-11-16 12:54 | NUR ---
CASE MANAGEMENT: [facility] FAMILY ALLA / SON [phone] REFUSE DISCHARGE TO [facility] DUE TO DISTANCE FROM [facility] AND DESIRE TO CONTINUE CARE WITH THE ATTENDING MD. ATTENDING MD MADE AWARE. FAMILY REQUEST TO APPEAL THE DISCHARGE. [phone] APPEALS INFORMATION PROVIDED TO [facility]. KATHY CALLED [facility] TO REQUEST CASE NUMBER. PER [facility] PROCESS HAS NOT BEEN INITIATED BY FAMILY. CM CALLED FAMILY TO INFORM THEM OF THE NECESSITY START THE APPEALS PROCESS. CM WILL FOLLOW UP. Addendum: 11/16/19 at 1647 by VIDAL SCOTT CM PER [facility] [phone] MEDICARE APPEAL HAS NOT BEEN INITIATED CALLED [facility]; NO ANSWER; LEFT MESSAGE
[2019-11-16] MEDS ORDERED: Lidocaine 1% Plain 30 ml INJ PRN (14:08)
[2019-11-16] MEDS ORDERED: Heparin1,000 units/500ml Premix(Conc:2 units/ml) INJ PRN (14:08)
--- NOTE | 2019-11-16 14:11 | Pulmonology Progress Note ---
Martha Chandler PLUG SHAPER HAND 11/16/19 1411: Subjective ROS Limited/Unobtainable: No Constitutional: Reports: fever, fatigue, other - + trach and vent Gastrointestinal/Abdominal: Denies: nausea, vomiting Psychiatric: Denies: depression Skin: Denies: rash Musculoskeletal: Denies: pain Allergies: Coded Allergies: PENICILLINS (Verified Allergy, Unknown, 11/01/19) VANCOMYCIN (Verified Allergy, Unknown, 11/01/19) Uncoded Allergies: PENICI (Allergy, Unknown, 11/01/19) All Systems: reviewed and negative except above Subjective prior transferred to ICU 11/13 for hypotension BP responded to albumin bolus and IVF boluses, back to SDU no signs of resp distress on current settings leukocytosis down to 59 fever at night, currently afebrile s/p EGD , removal of G tube 10/07 on TPN since 11/08 s/p 1 u PRNC and 1 u plateletpheresis 11/14 -> 11/15 PLT 31, Hgb 7.1 Objective Last 24 Hour Vital Signs Date Time Temp Pulse Resp B/P (MAP) Pulse Ox O2 Delivery O2 Flow Rate FiO2 11/16/19 08:00 97.9 100 20 106/54 (71) 100 11/16/19 08:00 40 11/16/19 08:00 98 11/16/19 08:00 Mechanical Ventilator 11/16/19 07:34 98 21 40 11/16/19 04:00 98.1 98 20 103/54 (70) 100 11/16/19 04:00 Mechanical Ventilator 11/16/19 04:00 40 11/16/19 03:20 100 11/16/19 02:51 107 26 40 11/16/19 01:10 98.9 11/16/19 00:00 100.0 119 22 101/50 (67) 99 11/16/19 00:00 Mechanical Ventilator 11/16/19 00:00 40 11/15/19 23:32 121 11/15/19 22:57 124 27 40 11/15/19 20:00 99.5 131 20 121/73 (89) 100 11/15/19 20:00 40 11/15/19 20:00 40 11/15/19 20:00 Mechanical Ventilator 11/15/19 20:00 133 11/15/19 19:15 99.3 125 18 111/73 (86) 100 11/15/19 19:11 133 28 40 11/15/19 16:04 96.8 115 16 124/54 (77) 100 11/15/19 16:00 116 11/15/19 16:00 Mechanical Ventilator 11/15/19 16:00 40 11/15/19 14:46 113 22 40 Intake and Output 11/15/19 11/16/19 19:00 07:00 Intake Total 1236 ml 2139 ml Output Total 1200 ml 1000 ml Balance 36 ml 1139 ml IV Total 1236 ml 2139 ml Output Urine Total 1200 ml 1000 ml Objective General Appearance: no apparent distress, bedridden, vent dependent chronically ill appearing female Lines, tubes and drains: peripheral HEENT: normocephalic, atraumatic, anicteric, status post trach: Shiley #6, secretions small amount, thick consistency, white color , Vent AC 400-40%-20 PEEP 5 Respiratory/Chest: no respiratory distress, few scattered rhonchi Cardiovascular/Chest: regular rhythm, RUE PICC intact Abdomen: non tender, soft, distended, dressing over old G tube site , dry Extremities: no edema, spastic LE Skin Exam: warm/dry, multiple DTI POA ( sacral, ankle foot, elbow) Neurologic: abnormal gait : bedridden, not responsive Musculoskeletal: atrophy - BLE Microbiology Date/Time Source Procedure Growth Status 11/14/19 14:05 Blood Blood Culture - Preliminary NO GROWTH AFTER 24 HOURS Resulted 11/14/19 14:00 Blood Blood Culture - Preliminary NO GROWTH AFTER 24 HOURS Resulted Laboratory Tests 11/16/19 03:15: White Blood Count 59.9*H, Red Blood Count 2.51L, Hemoglobin 7.1L, Hematocrit 22.8L, Mean Corpuscular Volume 91, Mean Corpuscular Hemoglobin 28.2, Mean Corpuscular Hemoglobin Concent 31.0L, Red Cell Distribution Width 15.6H, Platelet Count 31#L, Mean Platelet Volume 9.4, Neutrophils (%) (Auto) , Lymphocytes (%) (Auto) , Monocytes (%) (Auto) , Eosinophils (%) (Auto) , Basophils (%) (Auto) , Differential Total Cells Counted 100, Neutrophils % ( Manual) 2L, Lymphocytes % (Manual) 23, Monocytes % (Manual) 29H, Eosinophils % ( Manual) 1, Basophils % (Manual) 1, Blast Cells % 44*H, Band Neutrophils 0, Nucleated Red Blood Cells 2, Platelet Estimate DecreasedL, Platelet Morphology Normal, Polychromasia 1+, Hypochromasia 3+, Anisocytosis 1+, Sodium Level 143, Potassium Level 3.8, Chloride Level 109H, Carbon Dioxide Level 26, Anion Gap 8, Blood Urea Nitrogen 26H, Creatinine 0.8, Estimat Glomerular Filtration Rate > 60 , Glucose Level 157H, Calcium Level 7.7L Current Medications Medications (Trade) Dose Ordered Sig/Inna Route PRN Reason Start Time Stop Time Status Last Admin Dose Admin Acetaminophen (Tylenol) 650 mg Q4H PRN GT fever 100.4, mild pain 11/10/19 10:00 12/01/19 23:14 Acetaminophen (Tylenol) 650 mg Q4H PRN RECTAL Temp >100.5 11/08/19 21:30 12/08/19 21:29 11/16/19 00:40 Albuterol/ Ipratropium (Albuterol/ Ipratropium) 3 ml Q4H PRN HHN Shortness of Breath 11/15/19 09:45 11/20/19 09:44 Ascorbic Acid (Vitamin C) 500 mg DAILY GT 11/02/19 09:00 12/02/19 08:59 11/08/19 08:42 Carbidopa/Levodopa (Sinemet 25/100) 2 tab QID GT 11/02/19 09:00 12/02/19 08:59 11/08/19 08:42 Chlorhexidine Gluconate (Josefa-Hex 2%) 1 applic DAILY@2000 TOPIC 11/15/19 20:00 02/13/20 19:59 11/15/19 20:04 Daptomycin 500 mg/ Sodium Chloride 50 ml @ 100 mls/hr Q24H IV 11/14/19 16:00 11/21/19 15:59 11/14/19 15:52 Dextrose 1,000 ml @ 0 mls/hr Q24H PRN IV PN interrupted or unavailable 11/09/19 20:00 12/09/19 19:59 Dextrose (Dextrose 50%) 25 ml Q30M PRN IV Hypoglycemia 11/09/19 20:00 02/07/20 19:59 Dextrose (Dextrose 50%) 50 ml Q30M PRN IV Hypoglycemia 11/09/19 20:00 02/07/20 19:59 Dextrose/ Electrolytes 1,000 ml @ 50 mls/hr Q20H IV 11/14/19 18:00 12/14/19 17:59 11/15/19 21:39 Docusate Sodium (Colace) 100 mg DAILY GT 11/02/19 09:00 12/02/19 08:59 11/08/19 08:41 Entacapone (Comtan) 400 mg THREE TIMES A DAY ORAL 11/10/19 13:00 12/02/19 17:59 Fat Emulsion Intravenous 192 ml/Amino Acids/ Electrolytes/ Dextrose 1,872 ml @ 78 mls/hr Q24H IV 11/11/19 20:00 12/11/19 19:59 11/15/19 20:01 Insulin Aspart (NovoLOG) Q6HR SUBQ 11/06/19 12:00 02/04/20 11:59 11/16/19 12:03 Levofloxacin 50 ml @ 50 mls/hr Q24H IVPB 11/13/19 09:00 11/29/19 23:59 11/16/19 10:05 Meropenem 1 gm/ Sodium Chloride 100 ml @ 200 mls/hr Q8HR IVPB 11/13/19 22:00 11/27/19 23:59 11/16/19 05:18 Metoclopramide HCl (Reglan) 5 mg Q6H PRN IVP nausea or vomiting 11/01/19 23:15 12/01/19 23:14 11/02/19 12:51 Micafungin Sodium 100 mg/Sodium Chloride 110 ml @ 110 mls/hr Q24H IVPB 11/13/19 21:00 11/23/19 23:59 11/15/19 21:39 Multivitamins (Multivitamins W/ Minerals 15ml Liquid) 15 ml DAILY GT 11/02/19 09:00 12/02/19 08:59 11/08/19 08:42 Ondansetron HCl (Zofran) 4 mg Q4H PRN IVP Nausea & Vomiting 11/01/19 23:15 12/01/19 23:14 Pantoprazole (Protonix) 40 mg DAILY IVP 11/05/19 09:00 12/05/19 08:59 6/24/20 09:49 Polyethylene Glycol (Miralax) 17 gm DAILY PRN GT Constipation 11/02/19 08:30 12/02/19 07:59 Polymyxin B Sulfate 003161 units/Dextrose 550 ml @ 550 mls/hr EVERY 12 HOURS IV 11/16/19 09:00 11/23/19 08:59 11/16/19 09:56 Quetiapine Fumarate (SEROqueL) 50 mg QHS GT 11/02/19 21:00 12/17/19 20:59 11/07/19 21:36 Sennosides (Senokot) 8.6 mg QHS GT 11/02/19 21:00 12/02/19 20:59 11/07/19 21:32 Zinc Oxide (Desitin) 1 applic FOUR TIMES A DAY TOPIC 11/04/19 14:00 12/04/19 13:59 11/16/19 10:36 Assessment/Plan Assessment/Plan ASSESSMENT Chronic respiratory failure ventilator dependent with tracheostomy status Sepsis Bacteremia Hypotension, possible early shock - resolved Pneumonia, possible aspiration UTI with Klebsiella pneumonia CRE Hypotension, possible early shock - resolved 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), s/p 2 u PRBC Pancytopenia Leukocytosis Dysphagia, feeding by G-tube Advanced Parkinson's disease Severe protein calorie malnutrition Malfunctioning G tube ( inadvertently was removed), s/p EGD and removal of G tube Multiple DTI , POA Ovarian mass consistent with neoplasm AML Suspected COVID-19 infection -ruled out Severe protein calorie malnutrition Functional quadriplegia E/lyte abnormalities PLAN OF CARE back to [facility] ( from ICU, responded to IVC boluses and albumin boluses) ventilator support, trach care, pulm toilet baseline ABG stable on current settings, keep as is and optimize as needed CXR 11/06 unchanged, SCX 11/05 Providencia , Klebsiella CRE, Pseudomonas CXR 11/09 no change: Tracheostomy remains in place. Basilar infiltrates not significantly changed. Small effusions unchanged CXR 11/12 -Persistent low lung volumes, may be related to shallow inspiration. Bilateral patchy interstitial and air space opacities, most prominent in the left lung base. Stable to mildly worsened compared to the prior exam and is concerning for pneumonia versus pulmonary edema. Possible small left pleural effusion. CXR 11/14 - Slight worsening of bilateral alveolar densities which could be worsening infiltrates and/or edema. BCX 10/31 05/28 Staph haemolyticus, likely contaminant BCX 11/01 1 MRSA BCX 11/03 NGTD UCX Klebsiella CRE BCX 11/05 ACB MDR, Staph BCX 11/06 NGTD BCX 11/10 GNR UCX 11/10 + yeast BCX 11/13 NGTD abx as per ID recs -Dapto, Poly and Meropenem, Levaquin and Micafungin added later as per ID recs leuk now trending down , but intermittent persistent fevers PICC to be dc and new inserted as per ID recs -CT A/P 11/09 BILATERAL SMALL PLEURAL EFFUSIONS AND DEPENDENT INFILTRATES. HUGE SEPTATED CYSTIC MASS ARISING FROM THE PELVIS EXTENDING INTO THE ABDOMEN MOST LIKELY OF OVARIAN ORIGIN. SMALL AMOUNT OF FREE FLUID ADJACENT TO THE HEPATIC AND SPLENIC EDGE WELL IN THE PELVIS. LEFT RENAL STONE. POSSIBLE SLUDGE OR NONCALCIFIED STONES LAYERING IN THE GALLBLADDER. LEFT LOWER QUADRANT STOMA. SEVERE DEGENERATIVE CHANGES AND DEXTROSCOLIOSIS OF THE SPINE. ANASARCA. ECHO with pEF 55%, no discrete vegetation seen COVID 11/01 NGT, Venous Duplex BLE NGT, apply SCD, monitor HH with goal to keep Hgb >7, trend PLT severe pancytopenia likely 2 to AML will transfuse with 1 unit PLT-pheresis and 1 u PRBC today leukocytosis 2 to sepsis and partially probably due to malignancy/AML and ovarian Ca gentle IVF replace lytes as needed, monitor volumes asp precautions GT was inadvertently removed s/p replacement 11/03 by GI started TF still leaking plan replacement with GJ tube but cancelled due to leukocytosis s/p EGD 11/07, old G tube removed, unable to place a new one due to a large site , currently on TPN strict aspir precautions protein supplement as per RD recs continue SNF meds as per primary supportive care bowel regimen wound care as per surgeon recs overall prognosis grave, given multiple comorbidities, with superimposed AML and ovarian mass, extent of care DNR/DNI status case discussed and evaluated by supervising physician Jerrell Wilson MD 11/16/19 1618: Subjective Allergies: Coded Allergies: PENICILLINS (Verified Allergy, Unknown, 11/01/19) VANCOMYCIN (Verified Allergy, Unknown, 11/01/19) Uncoded Allergies: PENICI (Allergy, Unknown, 11/01/19) Assessment/Plan Assessment/Plan Patient seen with PLUG SHAPER HAND. Agree with above A&P as it reflects our joint deliberations. Martha Chandler NP Nov 16, 2019 14:11 Jerrell Wilson MD Nov 16, 2019 16:18
--- NOTE | 2019-11-16 14:30 | NUR ---
NURSE NOTES:NEW PICC-LINE INSERTED BY CATRINA MOTA ON LT UPPER ARM. PT TOLERATED WELL PROCEDURE. WILL CONT TO MONITOR.
--- NOTE | 2019-11-16 14:47 | Surgery Progress Note ---
Surgery Progress Note Subjective Additional Comments jacob cute events comfortable stable labs noted ill appearing prognosis guarded Objective Last 24 Hour Vital Signs Date Time Temp Pulse Resp B/P (MAP) Pulse Ox O2 Delivery O2 Flow Rate FiO2 11/16/19 08:00 97.9 100 20 106/54 (71) 100 11/16/19 08:00 40 11/16/19 08:00 98 11/16/19 08:00 Mechanical Ventilator 11/16/19 07:34 98 21 40 11/16/19 04:00 98.1 98 20 103/54 (70) 100 11/16/19 04:00 Mechanical Ventilator 11/16/19 04:00 40 11/16/19 03:20 100 11/16/19 02:51 107 26 40 11/16/19 01:10 98.9 11/16/19 00:00 100.0 119 22 101/50 (67) 99 11/16/19 00:00 Mechanical Ventilator 11/16/19 00:00 40 11/15/19 23:32 121 11/15/19 22:57 124 27 40 11/15/19 20:00 99.5 131 20 121/73 (89) 100 11/15/19 20:00 40 11/15/19 20:00 40 11/15/19 20:00 Mechanical Ventilator 11/15/19 20:00 133 11/15/19 19:15 99.3 125 18 111/73 (86) 100 11/15/19 19:11 133 28 40 11/15/19 16:04 96.8 115 16 124/54 (77) 100 11/15/19 16:00 116 11/15/19 16:00 Mechanical Ventilator 11/15/19 16:00 40 I&O Intake and Output 11/15/19 11/16/19 18:59 06:59 Intake Total 1286 ml 2217 ml Output Total 1200 ml 1000 ml Balance 86 ml 1217 ml IV Total 1286 ml 2217 ml Output Urine Total 1200 ml 1000 ml Dressing: other Wound: other Drains: other Cardiovascular: RSR Respiratory: decreased breath sounds Abdomen: soft, non-tender, present bowel sounds Extremities: no cyanosis Laboratory Tests Test 11/16/19 03:15 White Blood Count 59.9 K/UL (4.8-10.8) *H Red Blood Count 2.51 M/UL (4.20-5.40) L Hemoglobin 7.1 G/DL (12.0-16.0) L Hematocrit 22.8 % (37.0-47.0) L Mean Corpuscular Volume 91 FL (80-99) Mean Corpuscular Hemoglobin 28.2 PG (27.0-31.0) Mean Corpuscular Hemoglobin Concent 31.0 G/DL (32.0-36.0) L Red Cell Distribution Width 15.6 % (11.6-14.8) H Platelet Count 31 K/UL (150-450) #L Mean Platelet Volume 9.4 FL (6.5-10.1) Neutrophils (%) (Auto) % (45.0-75.0) Lymphocytes (%) (Auto) % (20.0-45.0) Monocytes (%) (Auto) % (1.0-10.0) Eosinophils (%) (Auto) % (0.0-3.0) Basophils (%) (Auto) % (0.0-2.0) Differential Total Cells Counted 100 Neutrophils % (Manual) 2 % (45-75) L Lymphocytes % (Manual) 23 % (20-45) Monocytes % (Manual) 29 % (1-10) H Eosinophils % (Manual) 1 % (0-3) Basophils % (Manual) 1 % (0-2) Blast Cells % 44 % (0-0) *H Band Neutrophils 0 % (0-8) Nucleated Red Blood Cells 2 /100 WBC Platelet Estimate Decreased L Platelet Morphology Normal Polychromasia 1+ Hypochromasia 3+ Anisocytosis 1+ Sodium Level 143 MMOL/L (136-145) Potassium Level 3.8 MMOL/L (3.5-5.1) Chloride Level 109 MMOL/L (98-107) H Carbon Dioxide Level 26 MMOL/L (21-32) Anion Gap 8 mmol/L (5-15) Blood Urea Nitrogen 26 mg/dL (7-18) H Creatinine 0.8 MG/DL (0.55-1.30) Estimat Glomerular Filtration Rate > 60 mL/min (>60) Glucose Level 157 MG/DL (74-106) H Calcium Level 7.7 MG/DL (8.5-10.1) L Plan Problems: (1) Decubitus skin ulcer Assessment & Plan: Pt presented on admission with multiple Pressure Injuries, and contractures. Large Soft Mass noted to lateral R chest ,just inferior to Breast.Soft mass that uis violaceous and denuded. Unstageable Pressure injury R thoracic. Wound presents as partially opened DTPI( L)6cm x (W)8.5cm. 95% Soft eschar flap,5% dee. Marginal erythema along borders In addition scattered linear and purple area periwound. Full thickness stage 4 Sacral Pressure Injury(L)9.3cm x (W)8.7cm. Base of wound is 95% necrotic,but bone is palpable.Mild odor noted. No exudate noted. Non-blanching erythema periwound. Unstageable Pressure Injury R trochanter(L)3.5cm x (W)4.2cm. Base of wound is 90 % soft eschar, 10% pink epithelial. Edges adherent to base of wound .No erythema induration or fluctuance periwound. Unstageable Pressure injury R Ischium(L)3.5cm x (W)2.5cm. Dry eschar at base of wound, edges are adherent with surrounding pink epithelial. No erythema or induration periwound. DTPI L trochanter(L)4cm x (W)1cm. Stable dry eschar L Hallux(L)1.6cm x (W)2cm.NO erythema fluctuance or induration periwound. L 1st metatarsal TMA noted. Stable dry eschar distal/lateral L foot (L)1.5cm x (W)3cm. No erythema, induration or fluctuance periwound. DTPI noted to plantar L foot.(L)0.9cm x (W)0.9cm. Base of wound is fluctuant, purple with maroon borders. Unstageable Pressure injury L lateral Malleolus. Stable dry eschar noted.No erythema or induration periwound. L heel is boggy with non-blanching erythema. Unstageable Pressure injury R Hallux and plantar aspect(L)3.5cm x (W)3.4cm. Soft eschar at base of wound with marginal erythema along borders. R heel is boggy with Non-Blanching erythema. Unstageable Presure injury distal/Lateral R foot . Stable dry eschar noted . No erythema of fluctuance periwound. Tx.Plan: Cleanse Sacral Wound with Saline. Loosely pack with Therahoney impregnated Kerlix.Applpy Moisture Barrier Paste periwound. Cover with Optifoam drsg. Change Daily and prn. Cleanse Soft Mass R chest with Saline. Cover with Optifoam drsg. Change Daily and prn. Cleanse wounds R trochanter, R Ischium with Saline. Apply Moisture Barrier Paste.Cover with Optifoam drsg. Change every 3 days and prn. Apply Moisture Barrier to L trochanter. Cvoer with Optifoam drsg. Change every 3 days and prn. Apply Betadine to wounds R and L foot. Cover each wound with Optifoam drsg. Changee very 3 days and prn. Apply Cavilon Skin Barrier to both heels. Cover each heel with Optifoam drsg. Change every 7 days and prn. APM/ANA Mattress overlay. turn q2h nutritional optimization (2) Malnutrition Assessment & Plan: pending g tube DAILY ESTIMATED NEEDS: Needs based on Critical care, wounds, 64kg 22-28 kcals/kg 9661-6038 total kcals 1.25-2 g protein/kg 80-128 g total protein 25-30 mL/kg 3683-3118 total fluid mLs NUTRITION DIAGNOSIS: Swallowing difficulty r/t respiratory status as evidenced by pt is trach and peg dep, currently NPO, on TPN. CURRENT TF:NPO, on TPN ENTERAL NUTRITION RECOMMENDATIONS: VITAL AF 1.2 @ 55ml/hr x24 hrs to provide 1320ml, 1584 kcal, 99g pro, 1071ml free H2O - Post PEJ placement, initiate Vital AF 1.2 @ 25ml/hr x 6hrs, advance 10ml q 4- 6 hrs as tolerated to goal. - Flush per MD Jacqueline SCHNEIDER over 30 degrees PARENTERAL NUTRITION RECOMMENDATIONS: D/AA Rate: 70 IL Rate: 8 Total Rate: 78 Volume: 1872 % Dextrose: 18 % AA: 5.5 Energy (kcals/kg): 1781 Protein (g/kg protein): 92 Nonprotein KCALS: 1412 GIR (mg CHO/kg/min): 3.3 % Fat KCALS: 22 NCP: N Ratio: 96:1 TPN Comment: - Maintain current TPN: -> D18%, AA 5.5% @70ml/hr w/ 20%IL @8ml/hr - all 3:1 - TF at goal meets 100% est needs, provides 28 kcal/kg and 1.4g/kg pro. - GIR<5 - IL <30% ADDITIONAL RECOMMENDATIONS: 1) Per SNF: 65 inches (5'5"); 141 lbs (64.1kg) 2) Wound care: add MEIR BID via GT w/ TF order 3) Monitor lytes, BG, and LFT's on TPN - check phos and mag (not checked since TPN initiation) (3) Anemia Assessment & Plan: transfused trend labs no active bleeding stool study GI eval (4) UTI (urinary tract infection) (5) Tracheostomy dependence Assessment & Plan: Findings: The left hemidiaphragm is elevated. Atelectatic changes are present in the left lung base. There is minimal right basilar atelectasis. No definite infiltrates. There is a tracheostomy. Impression: Elevated left hemidiaphragm with considerable left basilar atelectasis. Less extensive right basilar atelectasis. Inspiration is suboptimal. Interim development of opacity of the left mid and lower lung. The left hemidiaphragm is obscured. Right lung is probably clear , although there is crowding of bronchovascular lung volumes. Tracheostomy remains. Impression: Since 11/01/2019, interim development of left mid and lower lung infiltrates versus edema and possibly pleural fluid Juan Houser Nov 16, 2019 14:47
--- NOTE | 2019-11-16 15:21 | Pre-Procedure Note/Attestation ---
Pre-Procedure Note/Attestation Complete Prior to Procedure Planned Procedure: not applicable Procedure Narrative: picc line placement Indications for Procedure Pre-Operative Diagnosis: need IV access Attestation informed consent obtained by primary team. this was confimred prior to PICC placement Lino Chavez M.D. Nov 16, 2019 15:21
--- NOTE | 2019-11-16 15:27 | Diagnostic Imaging Report ---
Indications: Needs long-term IV access Technique: Procedure performed at bedside. Procedural timeout performed. Ultrasound confirms patent compressible left basilic vein. Total sterile technique, including sterile probe cover and sterile gel, sterile gloves, hand hygiene, hat, mask,, sterile gown, large sterile drape, and preparation with 2% chlorhexidine utilized. Local anesthesia with 1% lidocaine. Under real-time ultrasound guidance, puncture left basilic vein using 21-gauge needle, passage 0.018 guidewire, exchange for 4.5 Ecuadorean peel-away sheath. 4French dual-lumen power PICC cut to 40 cm. It was inserted through the peel-away sheath. Peel-away sheath and guidewire removed. Catheter fixed to the skin. Both catheter ports aspirated and flushed. Patient tolerated procedure well, without immediate complication. Followup chest x-ray obtained, documents catheter tip position at the cavoatrial junction. Right arm PICC line unchanged with its tip in the region of the right innominate vein. Persistent interstitial and patchy bilateral airspace disease is again seen although there is slight improved aeration in the right lung compared to the prior exam. Tracheostomy tube is again noted. Impression: Successful bedside placement of 4 Ecuadorean double-lumen PICC under sonographic guidance, as described above. PICC line cleared for immediate use.
[2019-11-16 16:00] VITALS: BP 120/59
[2019-11-16] MEDS ORDERED: Tubing IV Secondary IV ONE (17:28)
[2019-11-16] MEDS ORDERED: NS 275ml ONE ×2 (17:28→17:47)
[2019-11-16] MEDS ORDERED: Tubing IV Blood Pump IV ONE (17:47)
[2019-11-16] MEDS: DAPTOmycin 500 MG in NS 50 ML IV SCH (18:39)
--- NOTE | 2019-11-16 19:15 | NUR ---
HAND-OFF: Report given to .ADRIEL DUKE.
--- NOTE | 2019-11-16 19:36 | NUR ---
NURSE NOTES: Received patient from SRIKANTH Anglin. Patient is obtunded, vss, on threat monitoring analyst, and with no acute distress. Patient is clean with mild controlled bleeding during oral care. Patient had generalized edema +3 with a full body rash. upper left surgical wound is still draining. Upper right surgical site is stable with no drainage. Patients wounds are noted with pictures taken. PICC line is intact with scant bleeding. PICC running TPN at goal and D5 with 20meq KCL at 50mL/hr. Bed is at its lowest position, call light in reach and x 3 bed rails are up. Will continue to monitor.
[2019-11-16 20:00] VITALS: BP 120/59
[2019-11-16] MEDS: FAT EMULSION 20% IV SCH (20:13)
[2019-11-16] MEDS: TPN IV SCH (20:13)
[2019-11-16] MEDS: Micafungin 100 MG in NS 110 ML IVPB SCH (20:28)
[2019-11-16] MEDS: Sennosides 8.6mg tab GT SCH (20:36)
[2019-11-16] MEDS: Dyna-Hex 2% Top Sol 2oz TOPIC SCH (20:47)
--- NOTE | 2019-11-16 23:39 | NUR ---
NURSE NOTES: Patient is in bed resting well. No significant changes in condition observed. Will continue to monitor.
[2019-11-17] VITALS (7 sets, daily range): BP systolic 101–127; BP diastolic 58–67
--- NOTE | 2019-11-17 02:11 | NUR ---
NURSE NOTES: Patient cleaned, linen changed, and PICC dressing changed. PICC dressing was soiled with clotted blood and partially detached from patient's skin. Patient's old PICC site dressing is dry and clean. Will continue to monitor.
[2019-11-17 04:53] LABS: HEMATOCRIT 26.5 % (37.0-47.0); HEMOGLOBIN 8.2 G/DL (12.0-16.0); MEAN CORPUSCULAR VOLUME 92 FL (80-99); PLATELET COUNT 34 K/UL (150-450); RED BLOOD COUNT 2.89 M/UL (4.20-5.40); RED CELL DISTRIBUTION WIDTH 15.3 % (11.6-14.8)
[2019-11-17] MEDS: NovoLOG Insulin Flexpen SUBQ SCH ×4 (05:05→17:37)
[2019-11-17 05:22] LABS: ANION GAP 7 mmol/L (5-15); BLOOD UREA NITROGEN 22 mg/dL (7-18); CALCIUM 7.8 MG/DL (8.5-10.1); CARBON DIOXIDE 25 MMOL/L (21-32); CHLORIDE 108 MMOL/L (98-107); CREATININE 0.8 MG/DL (0.55-1.30); POTASSIUM 4.2 MMOL/L (3.5-5.1); SODIUM 140 MMOL/L (136-145)
[2019-11-17 06:05] LABS: WHITE BLOOD COUNT 67.9 K/UL (4.8-10.8)
--- NOTE | 2019-11-17 06:05 | NUR ---
NURSE NOTES: Yang from lab called to report WDC of 67.9. MD is aware of the patient's condition and it is expected with Leukemia patients.
--- NOTE | 2019-11-17 07:10 | NUR ---
NURSE NOTES: RECEIVED BED SIDE REPORT FROM ADRIEL DUKE STAFF OF ASSISTANT FOOD SERVICE DIRECTOR. RECEIVED PT WITH HOB ELEVATED 45 DEGREE ,OBTUNDED ,TRACH TO VENT DEPENDENT, TOLERATING WELL CURRENT VENT SETTINGS,SAT 100%. RENDERED TRACH CARE & ORAL HYGIENE ,MOD AMT OF WHITE TICK SECRETIONS NOTED. PT WITH PICC-LINE ON LT UA PATENT AND INTACT .PT RECEIVING TPN @ 78CC/HRS INFUSING WELL CONNECTED TO PICC-LINE ON LT UA ALSO IVF,S CONNECTED TO PICK LINE . PT WITH F/C DRAINING WELL YELLOW URINE COLOR. ABD DSG ON LT UQ SEEMS DRY AND WELL SECURED WITH PAPER TAPE NOTE. PT REPOSITIONED IN BED TO PROVIDE COMFORT AND TO PREVENT FURTHER SKIN BREAK DOWN. NO ACUTE DISTRESS NOTED. WILL CONT TO MONITOR.
--- NOTE | 2019-11-17 07:16 | NUR ---
HAND-OFF: Report given to SRIKANTH Anglin.
[2019-11-17] MEDS: Docusate 100mg/10ml Liq GT SCH (08:53)
[2019-11-17] MEDS: Multivitamins W/Minerals 15 ML UDC GT SCH (08:53)
[2019-11-17] MEDS: Ascorbic Acid 500mg tab GT SCH (08:54)
[2019-11-17] MEDS: Levodopa/Carbidopa 25/100 tab GT SCH ×4 (08:54→21:00)
[2019-11-17] MEDS: Entacapone 200mg tab ORAL SCH ×3 (09:00→17:35)
[2019-11-17] MEDS: Polymyxin B Sulfate 500,000 UNITS in D5W 500ml 550 ML IV SCH ×2 (09:48→20:30)
[2019-11-17] MEDS: Desitin Rash Paste TOPIC SCH ×4 (09:48→20:29)
[2019-11-17] MEDS: Pantoprazole Inj IVP SCH (09:49)
--- NOTE | 2019-11-17 09:55 | Pulmonology Progress Note ---
Martha Chandler [employer]TER 11/17/19 0955: Subjective ROS Limited/Unobtainable: No Constitutional: Reports: fever, fatigue, other - + trach and vent Gastrointestinal/Abdominal: Denies: nausea, vomiting Psychiatric: Denies: depression Skin: Denies: rash Musculoskeletal: Denies: pain Allergies: Coded Allergies: PENICILLINS (Verified Allergy, Unknown, 11/01/19) VANCOMYCIN (Verified Allergy, Unknown, 11/01/19) Uncoded Allergies: PENICI (Allergy, Unknown, 11/01/19) All Systems: reviewed and negative except above Subjective no signs of resp distress on current vent settings leukocytosis up to 67.9, intermittent low grade fevers PICC exchanged 11/15 s/p EGD , removal of G tube 10/07 on TPN since 11/08 s/p 1 u PRNC and 1 u plateletpheresis 11/14 -> 11/16 PLT 34, Hgb 8.2 Objective Last 24 Hour Vital Signs Date Time Temp Pulse Resp B/P (MAP) Pulse Ox O2 Delivery O2 Flow Rate FiO2 11/17/19 08:00 99.5 112 25 127/67 (87) 100 11/17/19 08:00 40 11/17/19 08:00 Mechanical Ventilator 11/17/19 08:00 110 11/17/19 05:15 98.7 113 22 102/59 (73) 100 11/17/19 05:05 Mechanical Ventilator 11/17/19 04:00 Mechanical Ventilator 11/17/19 04:00 40 11/17/19 04:00 98.7 113 22 102/59 (73) 100 11/17/19 03:36 115 11/17/19 02:38 102 24 40 11/17/19 00:00 98.9 115 23 101/58 (72) 100 11/17/19 00:00 117 11/17/19 00:00 Mechanical Ventilator 11/16/19 22:34 104 23 40 11/16/19 20:00 Mechanical Ventilator 11/16/19 20:00 99.5 106 28 120/59 (79) 100 11/16/19 20:00 40 11/16/19 19:26 112 11/16/19 19:24 101 24 40 11/16/19 16:00 40 11/16/19 16:00 106 11/16/19 16:00 99.5 106 28 120/59 (79) 100 11/16/19 16:00 Mechanical Ventilator 11/16/19 15:24 99 23 40 11/16/19 12:00 97.9 103 23 120/59 (79) 100 11/16/19 12:00 101 11/16/19 12:00 Mechanical Ventilator 11/16/19 12:00 40 11/16/19 11:36 109 23 40 Intake and Output 11/16/19 11/17/19 19:00 07:00 Intake Total 1336 ml 1673 ml Output Total 1000 ml 1300 ml Balance 336 ml 373 ml IV Total 1336 ml 1673 ml Output Urine Total 1000 ml 1300 ml Objective General Appearance: no apparent distress, bedridden, vent dependent chronically ill appearing female Lines, tubes and drains: peripheral HEENT: normocephalic, atraumatic, anicteric, status post trach: Shiley #6, secretions small amount, thick consistency, white color , Vent AC 400-40%-20 PEEP 5 Respiratory/Chest: no respiratory distress, few scattered rhonchi Cardiovascular/Chest: regular rhythm, LUE PICC intact Abdomen: non tender, soft, distended, dressing over old G tube site , saturating frequently, currently just changed, dry Extremities: no edema, spastic LE Skin Exam: warm/dry, multiple DTI POA ( sacral, ankle foot, elbow) Neurologic: abnormal gait : bedridden, not responsive Musculoskeletal: atrophy - BLE Microbiology Date/Time Source Procedure Growth Status 11/14/19 14:05 Blood Blood Culture - Preliminary NO GROWTH AFTER 48 HOURS Resulted 11/14/19 14:00 Blood Blood Culture - Preliminary NO GROWTH AFTER 48 HOURS Resulted Laboratory Tests 11/17/19 03:35: White Blood Count 67.9*H, Red Blood Count 2.89L, Hemoglobin 8.2L, Hematocrit 26.5L, Mean Corpuscular Volume 92, Mean Corpuscular Hemoglobin 28.4, Mean Corpuscular Hemoglobin Concent 31.0L, Red Cell Distribution Width 15.3H, Platelet Count 34L, Mean Platelet Volume 16.0H, Neutrophils (%) (Auto) , Lymphocytes (%) (Auto) , Monocytes (%) (Auto) , Eosinophils (%) (Auto) , Basophils (%) (Auto) , Differential Total Cells Counted 100, Neutrophils % ( Manual) 1L, Lymphocytes % (Manual) 13L, Monocytes % (Manual) 22H, Eosinophils % (Manual) 1, Basophils % (Manual) 0, Blast Cells % 63*H, Band Neutrophils 0, Nucleated Red Blood Cells 2, Platelet Estimate DecreasedL, Platelet Morphology Normal, Polychromasia 1+, Hypochromasia 2+, Poikilocytosis 1+, Anisocytosis 1+, Sodium Level 140, Potassium Level 4.2, Chloride Level 108H, Carbon Dioxide Level 25, Anion Gap 7, Blood Urea Nitrogen 22H, Creatinine 0.8, Estimat Glomerular Filtration Rate > 60, Glucose Level 143H, Calcium Level 7.8L Current Medications Medications (Trade) Dose Ordered Sig/Inna Route PRN Reason Start Time Stop Time Status Last Admin Dose Admin Acetaminophen (Tylenol) 650 mg Q4H PRN GT fever 100.4, mild pain 11/10/19 10:00 12/01/19 23:14 Acetaminophen (Tylenol) 650 mg Q4H PRN RECTAL Temp >100.5 11/08/19 21:30 12/08/19 21:29 11/16/19 00:40 Albuterol/ Ipratropium (Albuterol/ Ipratropium) 3 ml Q4H PRN HHN Shortness of Breath 11/15/19 09:45 11/20/19 09:44 Ascorbic Acid (Vitamin C) 500 mg DAILY GT 11/02/19 09:00 12/02/19 08:59 11/08/19 08:42 Carbidopa/Levodopa (Sinemet 25/100) 2 tab QID GT 11/02/19 09:00 12/02/19 08:59 11/08/19 08:42 Chlorhexidine Gluconate (Josefa-Hex 2%) 1 applic DAILY@2000 TOPIC 11/15/19 20:00 02/13/20 19:59 11/16/19 20:47 Daptomycin 500 mg/ Sodium Chloride 50 ml @ 100 mls/hr Q24H IV 11/14/19 16:00 11/21/19 15:59 11/16/19 18:39 Dextrose 1,000 ml @ 0 mls/hr Q24H PRN IV PN interrupted or unavailable 11/09/19 20:00 12/09/19 19:59 Dextrose (Dextrose 50%) 25 ml Q30M PRN IV Hypoglycemia 11/09/19 20:00 02/07/20 19:59 Dextrose (Dextrose 50%) 50 ml Q30M PRN IV Hypoglycemia 11/09/19 20:00 02/07/20 19:59 Dextrose/ Electrolytes 1,000 ml @ 50 mls/hr Q20H IV 11/14/19 18:00 12/14/19 17:59 11/17/19 05:01 Docusate Sodium (Colace) 100 mg DAILY GT 11/02/19 09:00 12/02/19 08:59 11/08/19 08:41 Entacapone (Comtan) 400 mg THREE TIMES A DAY ORAL 11/10/19 13:00 12/02/19 17:59 Fat Emulsion Intravenous 192 ml/Amino Acids/ Electrolytes/ Dextrose 1,872 ml @ 78 mls/hr Q24H IV 11/11/19 20:00 12/11/19 19:59 11/16/19 20:13 Insulin Aspart (NovoLOG) Q6HR SUBQ 11/06/19 12:00 02/04/20 11:59 11/17/19 05:05 Levofloxacin 50 ml @ 50 mls/hr Q24H IVPB 11/13/19 09:00 11/29/19 23:59 11/17/19 09:48 Meropenem 1 gm/ Sodium Chloride 100 ml @ 200 mls/hr Q8HR IVPB 11/13/19 22:00 11/27/19 23:59 11/17/19 05:00 Metoclopramide HCl (Reglan) 5 mg Q6H PRN IVP nausea or vomiting 11/01/19 23:15 12/01/19 23:14 11/02/19 12:51 Micafungin Sodium 100 mg/Sodium Chloride 110 ml @ 110 mls/hr Q24H IVPB 11/13/19 21:00 11/23/19 23:59 11/16/19 20:28 Multivitamins (Multivitamins W/ Minerals 15ml Liquid) 15 ml DAILY GT 11/02/19 09:00 12/02/19 08:59 11/08/19 08:42 Ondansetron HCl (Zofran) 4 mg Q4H PRN IVP Nausea & Vomiting 11/01/19 23:15 12/01/19 23:14 Pantoprazole (Protonix) 40 mg DAILY IVP 11/05/19 09:00 12/05/19 08:59 11/17/19 09:49 Polyethylene Glycol (Miralax) 17 gm DAILY PRN GT Constipation 11/02/19 08:30 12/02/19 07:59 Polymyxin B Sulfate 443167 units/Dextrose 550 ml @ 550 mls/hr EVERY 12 HOURS IV 11/16/19 09:00 11/23/19 08:59 11/17/19 09:48 Quetiapine Fumarate (SEROqueL) 50 mg QHS GT 11/02/19 21:00 12/17/19 20:59 11/07/19 21:36 Sennosides (Senokot) 8.6 mg QHS GT 11/02/19 21:00 12/02/19 20:59 11/07/19 21:32 Zinc Oxide (Desitin) 1 applic FOUR TIMES A DAY TOPIC 11/04/19 14:00 12/04/19 13:59 11/17/19 09:48 Assessment/Plan Assessment/Plan ASSESSMENT Chronic respiratory failure ventilator dependent with tracheostomy status Sepsis Bacteremia Persistent fevers Hypotension, possible early shock - resolved Pneumonia, possible aspiration UTI with Klebsiella pneumonia CRE Hypotension, possible early shock - resolved 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), s/p 2 u PRBC Pancytopenia Leukocytosis Dysphagia, feeding by G-tube Advanced Parkinson's disease Severe protein calorie malnutrition Malfunctioning G tube ( inadvertently was removed), s/p EGD and removal of G tube Multiple DTI , POA Ovarian mass consistent with neoplasm AML Suspected COVID-19 infection -ruled out Severe protein calorie malnutrition Functional quadriplegia E/lyte abnormalities PLAN OF CARE back in [facility] ( from ICU, responded to IVC boluses and albumin boluses) ventilator support, trach care, pulm toilet ABG stable on current settings, keep as is and optimize as needed CXR 11/06 unchanged, SCX 11/05 Providencia , Klebsiella CRE, Pseudomonas CXR 11/09 no change: Tracheostomy remains in place. Basilar infiltrates not significantly changed. Small effusions unchanged CXR 11/12 -Persistent low lung volumes, may be related to shallow inspiration. Bilateral patchy interstitial and air space opacities, most prominent in the left lung base. Stable to mildly worsened compared to the prior exam and is concerning for pneumonia versus pulmonary edema. Possible small left pleural effusion. CXR 11/14 - Slight worsening of bilateral alveolar densities which could be worsening infiltrates and/or edema repeat CXR in am 11/16 BCX 10/31 05/28 Staph haemolyticus, likely contaminant BCX 11/01 05/28 MRSA BCX 11/03 NGTD UCX Klebsiella CRE BCX 11/05 ACB MDR, Staph BCX 11/06 NGTD BCX 11/10 GNR UCX 11/10 + yeast BCX 11/13 NGTD abx as per ID recs -Dapto, Poly and Meropenem, Levaquin and Micafungin added later as per ID recs leuk again with trend up , and intermittent persistent fevers RUE PICC was dc with tip cx and LUE PICC inserted by IR 11/15 -CT A/P 11/09 BILATERAL SMALL PLEURAL EFFUSIONS AND DEPENDENT INFILTRATES. HUGE SEPTATED CYSTIC MASS ARISING FROM THE PELVIS EXTENDING INTO THE ABDOMEN MOST LIKELY OF OVARIAN ORIGIN. SMALL AMOUNT OF FREE FLUID ADJACENT TO THE HEPATIC AND SPLENIC EDGE WELL IN THE PELVIS. LEFT RENAL STONE. POSSIBLE SLUDGE OR NONCALCIFIED STONES LAYERING IN THE GALLBLADDER. LEFT LOWER QUADRANT STOMA. SEVERE DEGENERATIVE CHANGES AND DEXTROSCOLIOSIS OF THE SPINE. ANASARCA. ECHO with pEF 55%, no discrete vegetation seen COVID 11/01 NGT, Venous Duplex BLE NGT, apply SCD, monitor HH with goal to keep Hgb >7, trend PLT severe pancytopenia likely 2 to AML will transfuse with 1 unit PLT-pheresis and 1 u PRBC today leukocytosis 2 to sepsis and partially probably due to malignancy/AML and ovarian Ca gentle IVF replace lytes as needed, monitor volumes asp precautions GT was inadvertently removed s/p replacement 11/03 by GI started TF still leaking plan replacement with GJ tube but cancelled due to leukocytosis s/p EGD 11/07, old G tube removed, unable to place a new one due to a large site , currently on TPN strict aspir precautions protein supplement as per RD recs continue SNF meds as per primary supportive care bowel regimen wound care as per surgeon recs overall prognosis grave, given multiple comorbidities, with superimposed AML and ovarian mass, extent of care DNR/DNI status family declined transfer to [place] at this time case discussed and evaluated by supervising physician Jerrell Wilson MD 11/17/19 1413: Subjective Allergies: Coded Allergies: PENICILLINS (Verified Allergy, Unknown, 11/01/19) VANCOMYCIN (Verified Allergy, Unknown, 11/01/19) Uncoded Allergies: PENICI (Allergy, Unknown, 11/01/19) Assessment/Plan Assessment/Plan Patient seen and examined with [employer] C[employer]TER. Agree with above A&P as it reflects our joint deliberations. Martha Chandler NP Nov 17, 2019 09:55 Jerrell Wilson MD Nov 17, 2019 14:13
--- NOTE | 2019-11-17 12:04 | NUR ---
*-* CASE MANAGEMENT NOTES (MEDICARE APPEAL) *-* CASE MANAGEMENT HAS APPEALED THE PATIENTS D/C ON THEIR BEHAL CASE # [id number] Addendum: 11/18/19 at 1501 by JEFF VARGAS CM RECEIVED A CALL FROM [facility] PATIENT HAS LOST HER APPEAL SHE IS LIABLE OF 11/19/19 AT 12PM
--- NOTE | 2019-11-17 12:28 | General Progress Note ---
Assessment/Plan Status: stable, progressing Assessment/Plan: 1. AML. 2. Respiratory failure with vent. 3. Dysphagia with G-tube. 4. Ovarian mass. 5. Advanced Parkinson disease. 6. Anemia requiring blood transfusion in the past. 7. Dementia. 8. Pancytopenia. unable to place GJT due to very large gastrocutaneous fibula on TPN hypotension abx per ID s/p blood and plt transfusion less leakage from the old GT site pending GJT placement when leakage is less poor prognosis Subjective ROS Limited/Unobtainable: No Allergies: Coded Allergies: PENICILLINS (Verified Allergy, Unknown, 11/01/19) VANCOMYCIN (Verified Allergy, Unknown, 11/01/19) Uncoded Allergies: PENICI (Allergy, Unknown, 11/01/19) Objective Last 24 Hour Vital Signs Date Time Temp Pulse Resp B/P (MAP) Pulse Ox O2 Delivery O2 Flow Rate FiO2 11/17/19 08:00 99.5 112 25 127/67 (87) 100 11/17/19 08:00 40 11/17/19 08:00 Mechanical Ventilator 11/17/19 08:00 110 11/17/19 05:15 98.7 113 22 102/59 (73) 100 11/17/19 05:05 Mechanical Ventilator 11/17/19 04:00 Mechanical Ventilator 11/17/19 04:00 40 11/17/19 04:00 98.7 113 22 102/59 (73) 100 11/17/19 03:36 115 11/17/19 02:38 102 24 40 11/17/19 00:00 98.9 115 23 101/58 (72) 100 11/17/19 00:00 117 11/17/19 00:00 Mechanical Ventilator 11/16/19 22:34 104 23 40 11/16/19 20:00 Mechanical Ventilator 11/16/19 20:00 99.5 106 28 120/59 (79) 100 11/16/19 20:00 40 11/16/19 19:26 112 11/16/19 19:24 101 24 40 11/16/19 16:00 40 11/16/19 16:00 106 11/16/19 16:00 99.5 106 28 120/59 (79) 100 11/16/19 16:00 Mechanical Ventilator 11/16/19 15:24 99 23 40 Intake and Output 11/16/19 11/17/19 19:00 07:00 Intake Total 1336 ml 1673 ml Output Total 1000 ml 1300 ml Balance 336 ml 373 ml IV Total 1336 ml 1673 ml Output Urine Total 1000 ml 1300 ml Laboratory Tests 11/17/19 03:35: White Blood Count 67.9*H, Red Blood Count 2.89L, Hemoglobin 8.2L, Hematocrit 26.5L, Mean Corpuscular Volume 92, Mean Corpuscular Hemoglobin 28.4, Mean Corpuscular Hemoglobin Concent 31.0L, Red Cell Distribution Width 15.3H, Platelet Count 34L, Mean Platelet Volume 16.0H, Neutrophils (%) (Auto) , Lymphocytes (%) (Auto) , Monocytes (%) (Auto) , Eosinophils (%) (Auto) , Basophils (%) (Auto) , Differential Total Cells Counted 100, Neutrophils % ( Manual) 1L, Lymphocytes % (Manual) 13L, Monocytes % (Manual) 22H, Eosinophils % (Manual) 1, Basophils % (Manual) 0, Blast Cells % 63*H, Band Neutrophils 0, Nucleated Red Blood Cells 2, Platelet Estimate DecreasedL, Platelet Morphology Normal, Polychromasia 1+, Hypochromasia 2+, Poikilocytosis 1+, Anisocytosis 1+, Sodium Level 140, Potassium Level 4.2, Chloride Level 108H, Carbon Dioxide Level 25, Anion Gap 7, Blood Urea Nitrogen 22H, Creatinine 0.8, Estimat Glomerular Filtration Rate > 60, Glucose Level 143H, Calcium Level 7.8L Height (Feet): 5 Height (Inches): 3.00 Weight (Pounds): 158 General Appearance: no apparent distress EENT: normal ENT inspection Neck: supple Cardiovascular: normal rate Respiratory/Chest: decreased breath sounds Abdomen: normal bowel sounds, non tender, soft Extremities: non-tender Negro Reeves MD Nov 17, 2019 12:28
--- NOTE | 2019-11-17 14:36 | Surgery Progress Note ---
Surgery Progress Note Subjective Symptoms: worse Objective Last 24 Hour Vital Signs Date Time Temp Pulse Resp B/P (MAP) Pulse Ox O2 Delivery O2 Flow Rate FiO2 11/17/19 12:00 Mechanical Ventilator 11/17/19 12:00 40 11/17/19 12:00 98.6 109 24 117/59 (78) 100 11/17/19 12:00 108 11/17/19 08:00 99.5 112 25 127/67 (87) 100 11/17/19 08:00 40 11/17/19 08:00 Mechanical Ventilator 11/17/19 08:00 110 11/17/19 05:15 98.7 113 22 102/59 (73) 100 11/17/19 05:05 Mechanical Ventilator 11/17/19 04:00 Mechanical Ventilator 11/17/19 04:00 40 11/17/19 04:00 98.7 113 22 102/59 (73) 100 11/17/19 03:36 115 11/17/19 02:38 102 24 40 11/17/19 00:00 98.9 115 23 101/58 (72) 100 11/17/19 00:00 117 11/17/19 00:00 Mechanical Ventilator 11/16/19 22:34 104 23 40 11/16/19 20:00 Mechanical Ventilator 11/16/19 20:00 99.5 106 28 120/59 (79) 100 11/16/19 20:00 40 11/16/19 19:26 112 11/16/19 19:24 101 24 40 11/16/19 16:00 40 11/16/19 16:00 106 11/16/19 16:00 99.5 106 28 120/59 (79) 100 11/16/19 16:00 Mechanical Ventilator 11/16/19 15:24 99 23 40 I&O Intake and Output 11/16/19 11/17/19 19:00 07:00 Intake Total 1336 ml 1673 ml Output Total 1000 ml 1300 ml Balance 336 ml 373 ml IV Total 1336 ml 1673 ml Output Urine Total 1000 ml 1300 ml Dressing: saturated Cardiovascular: RSR Respiratory: decreased breath sounds Abdomen: soft, present bowel sounds, non-distended Extremities: edema, no cyanosis Laboratory Tests Test 11/17/19 03:35 White Blood Count 67.9 K/UL (4.8-10.8) *H Red Blood Count 2.89 M/UL (4.20-5.40) L Hemoglobin 8.2 G/DL (12.0-16.0) L Hematocrit 26.5 % (37.0-47.0) L Mean Corpuscular Volume 92 FL (80-99) Mean Corpuscular Hemoglobin 28.4 PG (27.0-31.0) Mean Corpuscular Hemoglobin Concent 31.0 G/DL (32.0-36.0) L Red Cell Distribution Width 15.3 % (11.6-14.8) H Platelet Count 34 K/UL (150-450) L Mean Platelet Volume 16.0 FL (6.5-10.1) H Neutrophils (%) (Auto) % (45.0-75.0) Lymphocytes (%) (Auto) % (20.0-45.0) Monocytes (%) (Auto) % (1.0-10.0) Eosinophils (%) (Auto) % (0.0-3.0) Basophils (%) (Auto) % (0.0-2.0) Differential Total Cells Counted 100 Neutrophils % (Manual) 1 % (45-75) L Lymphocytes % (Manual) 13 % (20-45) L Monocytes % (Manual) 22 % (1-10) H Eosinophils % (Manual) 1 % (0-3) Basophils % (Manual) 0 % (0-2) Blast Cells % 63 % (0-0) *H Band Neutrophils 0 % (0-8) Nucleated Red Blood Cells 2 /100 WBC Platelet Estimate Decreased L Platelet Morphology Normal Polychromasia 1+ Hypochromasia 2+ Poikilocytosis 1+ Anisocytosis 1+ Sodium Level 140 MMOL/L (136-145) Potassium Level 4.2 MMOL/L (3.5-5.1) Chloride Level 108 MMOL/L (98-107) H Carbon Dioxide Level 25 MMOL/L (21-32) Anion Gap 7 mmol/L (5-15) Blood Urea Nitrogen 22 mg/dL (7-18) H Creatinine 0.8 MG/DL (0.55-1.30) Estimat Glomerular Filtration Rate > 60 mL/min (>60) Glucose Level 143 MG/DL (74-106) H Calcium Level 7.8 MG/DL (8.5-10.1) L Plan Problems: (1) Decubitus skin ulcer Assessment & Plan: Pt presented on admission with multiple Pressure Injuries, and contractures. Large Soft Mass noted to lateral R chest ,just inferior to Breast.Soft mass that uis violaceous and denuded. Unstageable Pressure injury R thoracic. Wound presents as partially opened DTPI( L)6cm x (W)8.5cm. 95% Soft eschar flap,5% dee. Marginal erythema along borders In addition scattered linear and purple area periwound. Full thickness stage 4 Sacral Pressure Injury(L)9.3cm x (W)8.7cm. Base of wound is 95% necrotic,but bone is palpable.Mild odor noted. No exudate noted. Non-blanching erythema periwound. Unstageable Pressure Injury R trochanter(L)3.5cm x (W)4.2cm. Base of wound is 90 % soft eschar, 10% pink epithelial. Edges adherent to base of wound .No erythema induration or fluctuance periwound. Unstageable Pressure injury R Ischium(L)3.5cm x (W)2.5cm. Dry eschar at base of wound, edges are adherent with surrounding pink epithelial. No erythema or induration periwound. DTPI L trochanter(L)4cm x (W)1cm. Stable dry eschar L Hallux(L)1.6cm x (W)2cm.NO erythema fluctuance or induration periwound. L 1st metatarsal TMA noted. Stable dry eschar distal/lateral L foot (L)1.5cm x (W)3cm. No erythema, induration or fluctuance periwound. DTPI noted to plantar L foot.(L)0.9cm x (W)0.9cm. Base of wound is fluctuant, purple with maroon borders. Unstageable Pressure injury L lateral Malleolus. Stable dry eschar noted.No erythema or induration periwound. L heel is boggy with non-blanching erythema. Unstageable Pressure injury R Hallux and plantar aspect(L)3.5cm x (W)3.4cm. Soft eschar at base of wound with marginal erythema along borders. R heel is boggy with Non-Blanching erythema. Unstageable Presure injury distal/Lateral R foot . Stable dry eschar noted . No erythema of fluctuance periwound. Tx.Plan: Cleanse Sacral Wound with Saline. Loosely pack with Therahoney impregnated Kerlix.Applpy Moisture Barrier Paste periwound. Cover with Optifoam drsg. Change Daily and prn. Cleanse Soft Mass R chest with Saline. Cover with Optifoam drsg. Change Daily and prn. Cleanse wounds R trochanter, R Ischium with Saline. Apply Moisture Barrier Paste.Cover with Optifoam drsg. Change every 3 days and prn. Apply Moisture Barrier to L trochanter. Cvoer with Optifoam drsg. Change every 3 days and prn. Apply Betadine to wounds R and L foot. Cover each wound with Optifoam drsg. Changee very 3 days and prn. Apply Cavilon Skin Barrier to both heels. Cover each heel with Optifoam drsg. Change every 7 days and prn. APM/ANA Mattress overlay. turn q2h nutritional optimization (2) Malnutrition Assessment & Plan: pending g tube DAILY ESTIMATED NEEDS: Needs based on Critical care, wounds, 64kg 22-28 kcals/kg 6519-1349 total kcals 1.25-2 g protein/kg 80-128 g total protein 25-30 mL/kg 1475-4130 total fluid mLs NUTRITION DIAGNOSIS: Swallowing difficulty r/t respiratory status as evidenced by pt is trach and peg dep, currently NPO, on TPN. CURRENT TF:NPO, on TPN ENTERAL NUTRITION RECOMMENDATIONS: VITAL AF 1.2 @ 55ml/hr x24 hrs to provide 1320ml, 1584 kcal, 99g pro, 1071ml free H2O - Post PEJ placement, initiate Vital AF 1.2 @ 25ml/hr x 6hrs, advance 10ml q 4- 6 hrs as tolerated to goal. - Flush per - WYATT over 30 degrees PARENTERAL NUTRITION RECOMMENDATIONS: D/AA Rate: 70 IL Rate: 8 Total Rate: 78 Volume: 1872 % Dextrose: 18 % AA: 5.5 Energy (kcals/kg): 1781 Protein (g/kg protein): 92 Nonprotein KCALS: 1412 GIR (mg CHO/kg/min): 3.3 % Fat KCALS: 22 NCP: N Ratio: 96:1 TPN Comment: - Maintain current TPN: -> D18%, AA 5.5% @70ml/hr w/ 20%IL @8ml/hr - all 3:1 - TF at goal meets 100% est needs, provides 28 kcal/kg and 1.4g/kg pro. - GIR<5 - IL <30% ADDITIONAL RECOMMENDATIONS: 1) Per SNF: 65 inches (5'5"); 141 lbs (64.1kg) 2) Wound care: add MEIR BID via GT w/ TF order 3) Monitor lytes, BG, and LFT's on TPN - check phos and mag (not checked since TPN initiation) (3) Anemia Assessment & Plan: transfused trend labs no active bleeding stool study GI eval (4) UTI (urinary tract infection) (5) Tracheostomy dependence Assessment & Plan: Findings: The left hemidiaphragm is elevated. Atelectatic changes are present in the left lung base. There is minimal right basilar atelectasis. No definite infiltrates. There is a tracheostomy. Impression: Elevated left hemidiaphragm with considerable left basilar atelectasis. Less extensive right basilar atelectasis. Inspiration is suboptimal. Interim development of opacity of the left mid and lower lung. The left hemidiaphragm is obscured. Right lung is probably clear , although there is crowding of bronchovascular lung volumes. Tracheostomy remains. Impression: Since 11/01/2019, interim development of left mid and lower lung infiltrates versus edema and possibly pleural fluid Juan Houser Nov 17, 2019 14:36
--- NOTE | 2019-11-17 14:57 | Internal Med Progress Note ---
Subjective Date of Service: Nov 17, 2019 Physician Name Fredrick Prince Attending Physician Fredrick Prince MD Current Medications Medications (Trade) Dose Ordered Sig/Inna Route PRN Reason Start Time Stop Time Status Last Admin Dose Admin Acetaminophen (Tylenol) 650 mg Q4H PRN GT fever 100.4, mild pain 11/10/19 10:00 12/01/19 23:14 Acetaminophen (Tylenol) 650 mg Q4H PRN RECTAL Temp >100.5 11/08/19 21:30 12/08/19 21:29 11/16/19 00:40 Albuterol/ Ipratropium (Albuterol/ Ipratropium) 3 ml Q4H PRN HHN Shortness of Breath 11/15/19 09:45 11/20/19 09:44 Ascorbic Acid (Vitamin C) 500 mg DAILY GT 11/02/19 09:00 12/02/19 08:59 11/08/19 08:42 Carbidopa/Levodopa (Sinemet 25/100) 2 tab QID GT 11/02/19 09:00 12/02/19 08:59 11/08/19 08:42 Chlorhexidine Gluconate (Josefa-Hex 2%) 1 applic DAILY@2000 TOPIC 11/15/19 20:00 02/13/20 19:59 11/16/19 20:47 Daptomycin 500 mg/ Sodium Chloride 50 ml @ 100 mls/hr Q24H IV 11/14/19 16:00 11/21/19 15:59 11/16/19 18:39 Dextrose 1,000 ml @ 0 mls/hr Q24H PRN IV PN interrupted or unavailable 11/09/19 20:00 12/09/19 19:59 Dextrose (Dextrose 50%) 25 ml Q30M PRN IV Hypoglycemia 11/09/19 20:00 02/07/20 19:59 Dextrose (Dextrose 50%) 50 ml Q30M PRN IV Hypoglycemia 11/09/19 20:00 02/07/20 19:59 Dextrose/ Electrolytes 1,000 ml @ 50 mls/hr Q20H IV 11/14/19 18:00 12/14/19 17:59 11/17/19 05:01 Docusate Sodium (Colace) 100 mg DAILY GT 11/02/19 09:00 12/02/19 08:59 11/08/19 08:41 Entacapone (Comtan) 400 mg THREE TIMES A DAY ORAL 11/10/19 13:00 12/02/19 17:59 Fat Emulsion Intravenous 192 ml/Amino Acids/ Electrolytes/ Dextrose 1,872 ml @ 78 mls/hr Q24H IV 11/11/19 20:00 12/11/19 19:59 11/16/19 20:13 Insulin Aspart (NovoLOG) Q6HR SUBQ 11/06/19 12:00 02/04/20 11:59 11/17/19 12:26 Levofloxacin 50 ml @ 50 mls/hr Q24H IVPB 11/13/19 09:00 11/29/19 23:59 11/17/19 09:48 Meropenem 1 gm/ Sodium Chloride 100 ml @ 200 mls/hr Q8HR IVPB 11/13/19 22:00 11/27/19 23:59 11/17/19 14:26 Metoclopramide HCl (Reglan) 5 mg Q6H PRN IVP nausea or vomiting 11/01/19 23:15 12/01/19 23:14 11/02/19 12:51 Micafungin Sodium 100 mg/Sodium Chloride 110 ml @ 110 mls/hr Q24H IVPB 11/13/19 21:00 11/23/19 23:59 11/16/19 20:28 Multivitamins (Multivitamins W/ Minerals 15ml Liquid) 15 ml DAILY GT 11/02/19 09:00 12/02/19 08:59 11/08/19 08:42 Ondansetron HCl (Zofran) 4 mg Q4H PRN IVP Nausea & Vomiting 11/01/19 23:15 12/01/19 23:14 Pantoprazole (Protonix) 40 mg DAILY IVP 11/05/19 09:00 12/05/19 08:59 11/17/19 09:49 Polyethylene Glycol (Miralax) 17 gm DAILY PRN GT Constipation 11/02/19 08:30 12/02/19 07:59 Polymyxin B Sulfate 637712 units/Dextrose 550 ml @ 550 mls/hr EVERY 12 HOURS IV 11/16/19 09:00 11/23/19 08:59 11/17/19 09:48 Quetiapine Fumarate (SEROqueL) 50 mg QHS GT 11/02/19 21:00 12/17/19 20:59 11/07/19 21:36 Sennosides (Senokot) 8.6 mg QHS GT 11/02/19 21:00 12/02/19 20:59 11/07/19 21:32 Zinc Oxide (Desitin) 1 applic FOUR TIMES A DAY TOPIC 11/04/19 14:00 12/04/19 13:59 11/17/19 14:26 Allergies: Coded Allergies: PENICILLINS (Verified Allergy, Unknown, 11/01/19) VANCOMYCIN (Verified Allergy, Unknown, 11/01/19) Uncoded Allergies: PENICI (Allergy, Unknown, 11/01/19) ROS Limited/Unobtainable: Yes All Systems: reviewed and negative except above Subjective Family appealed DC to LTACH yesterday non verbal, chronic trach GJ tube failed due to big whole on TPN Objective Last Vital Signs Date Time Temp Pulse Resp B/P (MAP) Pulse Ox O2 Delivery O2 Flow Rate FiO2 11/17/19 12:00 Mechanical Ventilator 11/17/19 12:00 40 11/17/19 12:00 98.6 109 24 117/59 (78) 100 General Appearance: no apparent distress Neck: other - trach Cardiovascular: normal rate, regular rhythm Respiratory/Chest: rhonchi - left Abdomen: normal bowel sounds, non tender, soft Extremities: other - +contractures Skin: warm/dry, other - various oress ulcers Laboratory Tests Test 11/17/19 03:35 White Blood Count 67.9 K/UL (4.8-10.8) *H Red Blood Count 2.89 M/UL (4.20-5.40) L Hemoglobin 8.2 G/DL (12.0-16.0) L Hematocrit 26.5 % (37.0-47.0) L Mean Corpuscular Volume 92 FL (80-99) Mean Corpuscular Hemoglobin 28.4 PG (27.0-31.0) Mean Corpuscular Hemoglobin Concent 31.0 G/DL (32.0-36.0) L Red Cell Distribution Width 15.3 % (11.6-14.8) H Platelet Count 34 K/UL (150-450) L Mean Platelet Volume 16.0 FL (6.5-10.1) H Neutrophils (%) (Auto) % (45.0-75.0) Lymphocytes (%) (Auto) % (20.0-45.0) Monocytes (%) (Auto) % (1.0-10.0) Eosinophils (%) (Auto) % (0.0-3.0) Basophils (%) (Auto) % (0.0-2.0) Differential Total Cells Counted 100 Neutrophils % (Manual) 1 % (45-75) L Lymphocytes % (Manual) 13 % (20-45) L Monocytes % (Manual) 22 % (1-10) H Eosinophils % (Manual) 1 % (0-3) Basophils % (Manual) 0 % (0-2) Blast Cells % 63 % (0-0) *H Band Neutrophils 0 % (0-8) Nucleated Red Blood Cells 2 /100 WBC Platelet Estimate Decreased L Platelet Morphology Normal Polychromasia 1+ Hypochromasia 2+ Poikilocytosis 1+ Anisocytosis 1+ Sodium Level 140 MMOL/L (136-145) Potassium Level 4.2 MMOL/L (3.5-5.1) Chloride Level 108 MMOL/L (98-107) H Carbon Dioxide Level 25 MMOL/L (21-32) Anion Gap 7 mmol/L (5-15) Blood Urea Nitrogen 22 mg/dL (7-18) H Creatinine 0.8 MG/DL (0.55-1.30) Estimat Glomerular Filtration Rate > 60 mL/min (>60) Glucose Level 143 MG/DL (74-106) H Calcium Level 7.8 MG/DL (8.5-10.1) L Intake and Output 11/16/19 11/17/19 19:00 07:00 Intake Total 1336 ml 1673 ml Output Total 1000 ml 1300 ml Balance 336 ml 373 ml IV Total 1336 ml 1673 ml Output Urine Total 1000 ml 1300 ml Objective unable to place J tube .on TPN Assessment/Plan Status: stable, unchanged Assessment/Plan Impression: sepsis on admission septic shock line sepsis acinectobacter bacteremia fungal cystitis 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 /son NOT in agreement. appealed DC. CM f/u abx broaden per ID worsening wbc could be AML flare microfungin on TPN. d/w GI PGE/J in few week unable to put PEG J tube due to large whole KCL IV replete prn s/p Mg sulfate IV 2 gram leukocytosis could be AML flare IV abx per ID wound care f/u cx ID f/u electrolyte replete as needed enteral feeding ventilator pulm HHN dong pain control dc aricept, allopurinol DNAR status Fredrick Prince MD Internal Medicine [phone] time spent today 50 minutes stamp time on this note may NOT be the actual encounter time. Fredrick Prince MD Nov 17, 2019 14:57
[2019-11-17] MEDS: DAPTOmycin 500 MG in NS 50 ML IV SCH (17:28)
--- NOTE | 2019-11-17 18:59 | NUR ---
HAND-OFF: Report given to .ADRIEL DUKE.
--- NOTE | 2019-11-17 19:00 | NUR ---
NURSE NOTES: Received patient from [facility]. Patient is obtunded, vss, on child monitor, and with no acute distress. Patient is clean and passive. Patient had generalized edema +3 with a full body rash. Upper left abdominal surgical wound is still draining. Upper right abdominal surgical site is stable with no drainage. Patients wounds are noted with pictures taken. PICC line is intact and clean. PICC running TPN at goal and D5 with 20meq KCL at 50mL/hr. Bed is at its lowest position; call light in reach and x 3 bed rails are up. Will continue to monitor.
[2019-11-17] MEDS: FAT EMULSION 20% IV SCH (20:23)
[2019-11-17] MEDS: TPN IV SCH (20:23)
[2019-11-17] MEDS: Dyna-Hex 2% Top Sol 2oz TOPIC SCH (20:25)
[2019-11-17] MEDS: Micafungin 100 MG in NS 110 ML IVPB SCH (20:30)
[2019-11-17] MEDS: Sennosides 8.6mg tab GT SCH (21:00)
--- NOTE | 2019-11-17 23:05 | Infectious Diseases Prog Note ---
Assessment/Plan Assessment/Plan ASSESSMENT AND PLAN: 1. 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 fungemia, TPN ? line infection - picc placed 11/02/19, repeat blood cultures show acinetobacter - daptomycin (11/01), polymyxin (11/04) levofloxacin (11/11), discontinue meropenem (11/09) - micafungin (11/12) for fungemia coverage - change picc line - ordered, pending - surveillance blood cultures neg so far - TTE - no vegetations identified - monitor labs and chest x-ray - wound management per surgery - leukocytosis maybe secondary to AML blast crises/flare 2. Trach, vent respiratory failure. 3. Dysphagia, G-tube. 4. Anemia. 5. Thrombocytopenia - severe 6. Leukocytosis. 7. Malnutrition. 8. Ovarian mass with neoplasm. 9. Parkinson's. 10. Dementia. 11. Skin care per Surgery and protocol. 12. Allergies to penicillin, vancomycin. 13. Social history is negative. 14. Family history is noncontributory. 15. MAR was noted. 16. Case was discussed with RN. 17. Continue treatment per primary consultants. 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 Subjective Constitutional: Reports: other - trach/vent ; Denies: fever HEENT: Reports: congestion Respiratory: Reports: shortness of breath Cardiovascular: Reports: other - no pressors Gastrointestinal/Abdominal: Denies: nausea, vomiting, diarrhea Genitourinary: Reports: other - + dong Neurologic: Reports: other - lethargic Psychiatric: Reports: other - NA Skin: Denies: rash Hematologic: Denies: bleeding Allergies: Coded Allergies: PENICILLINS (Verified Allergy, Unknown, 11/01/19) VANCOMYCIN (Verified Allergy, Unknown, 11/01/19) Uncoded Allergies: PENICI (Allergy, Unknown, 11/01/19) Objective Vital Signs Last 24 Hour Vital Signs Date Time Temp Pulse Resp B/P (MAP) Pulse Ox O2 Delivery O2 Flow Rate FiO2 11/17/19 20:00 113 11/17/19 20:00 99.0 115 26 119/67 (84) 100 11/17/19 20:00 Mechanical Ventilator 11/17/19 20:00 40 11/17/19 19:38 116 27 40 11/17/19 16:00 Mechanical Ventilator 11/17/19 16:00 40 11/17/19 16:00 117 11/17/19 16:00 98.6 112 25 119/62 (81) 100 11/17/19 14:35 102 24 40 11/17/19 12:00 Mechanical Ventilator 11/17/19 12:00 40 11/17/19 12:00 98.6 109 24 117/59 (78) 100 11/17/19 12:00 108 11/17/19 11:10 109 25 40 11/17/19 08:00 99.5 112 25 127/67 (87) 100 11/17/19 08:00 40 11/17/19 08:00 Mechanical Ventilator 11/17/19 08:00 110 11/17/19 07:40 106 35 40 11/17/19 05:15 98.7 113 22 102/59 (73) 100 11/17/19 05:05 Mechanical Ventilator 11/17/19 04:00 Mechanical Ventilator 11/17/19 04:00 40 11/17/19 04:00 98.7 113 22 102/59 (73) 100 11/17/19 03:36 115 11/17/19 02:38 102 24 40 11/17/19 00:00 98.9 115 23 101/58 (72) 100 11/17/19 00:00 117 11/17/19 00:00 Mechanical Ventilator Height (Feet): 5 Height (Inches): 3.00 Weight (Pounds): 158 General Appearance: other HEENT: normocephalic, atraumatic, anicteric, no JVD, status post trach Respiratory/Chest: crackles/rales, rhonchi - bilaterally Cardiovascular: normal rate, regular rhythm, no gallop/murmur Abdomen: normal bowel sounds, soft, non tender, no organomegaly, non distended Genitourinary: other - + dong - urine slt cloudy Extremities: no cyanosis Skin: no rash Neurologic/Psychiatric: other - lethargic, weak Lymphatic: no neck adenopathy Musculoskeletal: no effusion Objective Chest x-ray - 11/05/19 - IMPRESSION: 1. Interval placement of right PICC line tip to the mid SVC. 2. Hypoventilatory lungs. Bibasilar atelectasis/consolidations, similar to prior study. 3. Probable bilateral pleural effusions. Chest x-ray - 11/07/19- Procedure: XRAY Chest 1v Procedure: XRAY Chest 1v Reason for study: Shortness of breath. Comparison films: 11/05/2019. FINDINGS: Tracheostomy and right PICC line remain in place. There is limited inspiration with bibasilar densities unchanged. Cardiac and mediastinal silhouette are within normal limits. No large effusion seen The bony thorax appear unremarkable. IMPRESSION: NO SIGNIFICANT CHANGE COMPARED TO PREVIOUS EXAM. CT abdomen and pelvis: IMPRESSION: BILATERAL SMALL PLEURAL EFFUSIONS AND DEPENDENT INFILTRATES. HUGE SEPTATED CYSTIC MASS ARISING FROM THE PELVIS EXTENDING INTO THE ABDOMEN MOST LIKELY OF OVARIAN ORIGIN. SMALL AMOUNT OF FREE FLUID ADJACENT TO THE HEPATIC AND SPLENIC EDGE WELL IN THE PELVIS. LEFT RENAL STONE. POSSIBLE SLUDGE OR NONCALCIFIED STONES LAYERING IN THE GALLBLADDER. LEFT LOWER QUADRANT STOMA. SEVERE DEGENERATIVE CHANGES AND DEXTROSCOLIOSIS OF THE SPINE. ANASARCA. Abdominal US: IMPRESSION: 1. Sludge and possible small stones in the gallbladder. No gallbladder wall thickening or pericholecystic fluid. 2. Ascites. 3. Small right pleural effusion. Chest x-ray - 11/10/19 - Procedure: XRAY Chest 1v Procedure: XRAY Chest 1v Reason for study: Reason For Exam: SOB Comparison films: 11/07/2019. FINDINGS: Tracheostomy remains in place. Basilar infiltrates not significantly changed. Small effusions unchanged. Cardiac silhouette stable. The bony thorax appear unremarkable. IMPRESSION: NO SIGNIFICANT CHANGE COMPARED TO PREVIOUS EXAM Microbiology Date/Time Source Procedure Growth Status 11/14/19 14:05 Blood Blood Culture - Preliminary NO GROWTH AFTER 48 HOURS Resulted 11/06/19 10:04 Sputum Induced Gram Stain - Final Complete 11/06/19 10:04 Sputum Culture - Final Providencia Stuartii K.pneumoniae Carbapenem Resist Pseudomonas Aeruginosa Complete 11/13/19 04:00 Indwelling Cath Urine Culture - Final Aundrea Tropicalis Complete 11/01/19 16:30 Rectum VRE Culture - Final Enterococcus Faecalis - Vre Complete Laboratory Tests Test 11/17/19 03:35 White Blood Count 67.9 K/UL (4.8-10.8) *H Red Blood Count 2.89 M/UL (4.20-5.40) L Hemoglobin 8.2 G/DL (12.0-16.0) L Hematocrit 26.5 % (37.0-47.0) L Mean Corpuscular Volume 92 FL (80-99) Mean Corpuscular Hemoglobin 28.4 PG (27.0-31.0) Mean Corpuscular Hemoglobin Concent 31.0 G/DL (32.0-36.0) L Red Cell Distribution Width 15.3 % (11.6-14.8) H Platelet Count 34 K/UL (150-450) L Mean Platelet Volume 16.0 FL (6.5-10.1) H Neutrophils (%) (Auto) % (45.0-75.0) Lymphocytes (%) (Auto) % (20.0-45.0) Monocytes (%) (Auto) % (1.0-10.0) Eosinophils (%) (Auto) % (0.0-3.0) Basophils (%) (Auto) % (0.0-2.0) Differential Total Cells Counted 100 Neutrophils % (Manual) 1 % (45-75) L Lymphocytes % (Manual) 13 % (20-45) L Monocytes % (Manual) 22 % (1-10) H Eosinophils % (Manual) 1 % (0-3) Basophils % (Manual) 0 % (0-2) Blast Cells % 63 % (0-0) *H Band Neutrophils 0 % (0-8) Nucleated Red Blood Cells 2 /100 WBC Platelet Estimate Decreased L Platelet Morphology Normal Polychromasia 1+ Hypochromasia 2+ Poikilocytosis 1+ Anisocytosis 1+ Sodium Level 140 MMOL/L (136-145) Potassium Level 4.2 MMOL/L (3.5-5.1) Chloride Level 108 MMOL/L (98-107) H Carbon Dioxide Level 25 MMOL/L (21-32) Anion Gap 7 mmol/L (5-15) Blood Urea Nitrogen 22 mg/dL (7-18) H Creatinine 0.8 MG/DL (0.55-1.30) Estimat Glomerular Filtration Rate > 60 mL/min (>60) Glucose Level 143 MG/DL (74-106) H Calcium Level 7.8 MG/DL (8.5-10.1) L Current Medications Medications (Trade) Dose Ordered Sig/Inna Route PRN Reason Start Time Stop Time Status Last Admin Dose Admin Acetaminophen (Tylenol) 650 mg Q4H PRN GT fever 100.4, mild pain 11/10/19 10:00 12/01/19 23:14 Acetaminophen (Tylenol) 650 mg Q4H PRN RECTAL Temp >100.5 11/08/19 21:30 12/08/19 21:29 11/16/19 00:40 Albuterol/ Ipratropium (Albuterol/ Ipratropium) 3 ml Q4H PRN HHN Shortness of Breath 11/15/19 09:45 11/20/19 09:44 Ascorbic Acid (Vitamin C) 500 mg DAILY GT 11/02/19 09:00 12/02/19 08:59 11/08/19 08:42 Carbidopa/Levodopa (Sinemet 25/) 2 tab QID GT 11/02/19 09:00 12/02/19 08:59 11/08/19 08:42 Chlorhexidine Gluconate (Josefa-Hex 2%) 1 applic DAILY@2000 TOPIC 11/15/19 20:00 02/13/20 19:59 11/17/19 20:25 Daptomycin 500 mg/ Sodium Chloride 50 ml @ 100 mls/hr Q24H IV 11/14/19 16:00 11/21/19 15:59 11/17/19 17:28 Dextrose 1,000 ml @ 0 mls/hr Q24H PRN IV PN interrupted or unavailable 11/09/19 20:00 12/09/19 19:59 Dextrose (Dextrose 50%) 25 ml Q30M PRN IV Hypoglycemia 11/09/19 20:00 02/07/20 19:59 Dextrose (Dextrose 50%) 50 ml Q30M PRN IV Hypoglycemia 11/09/19 20:00 02/07/20 19:59 Dextrose/ Electrolytes 1,000 ml @ 50 mls/hr Q20H IV 11/14/19 18:00 12/14/19 17:59 11/17/19 05:01 Docusate Sodium (Colace) 100 mg DAILY GT 11/02/19 09:00 12/02/19 08:59 11/08/19 08:41 Entacapone (Comtan) 400 mg THREE TIMES A DAY ORAL 11/10/19 13:00 12/02/19 17:59 Fat Emulsion Intravenous 192 ml/Amino Acids/ Electrolytes/ Dextrose 1,872 ml @ 78 mls/hr Q24H IV 11/11/19 20:00 12/11/19 19:59 11/17/19 20:23 Insulin Aspart (NovoLOG) Q6HR SUBQ 11/06/19 12:00 02/04/20 11:59 11/17/19 12:26 Levofloxacin 50 ml @ 50 mls/hr Q24H IVPB 11/13/19 09:00 11/29/19 23:59 11/17/19 09:48 Meropenem 1 gm/ Sodium Chloride 100 ml @ 200 mls/hr Q8HR IVPB 11/13/19 22:00 11/27/19 23:59 11/17/19 22:46 Metoclopramide HCl (Reglan) 5 mg Q6H PRN IVP nausea or vomiting 11/01/19 23:15 12/01/19 23:14 11/02/19 12:51 Micafungin Sodium 100 mg/Sodium Chloride 110 ml @ 110 mls/hr Q24H IVPB 11/13/19 21:00 11/23/19 23:59 11/17/19 20:30 Multivitamins (Multivitamins W/ Minerals 15ml Liquid) 15 ml DAILY GT 11/02/19 09:00 12/02/19 08:59 11/08/19 08:42 Ondansetron HCl (Zofran) 4 mg Q4H PRN IVP Nausea & Vomiting 11/01/19 23:15 12/01/19 23:14 Pantoprazole (Protonix) 40 mg DAILY IVP 11/05/19 09:00 12/05/19 08:59 11/17/19 09:49 Polyethylene Glycol (Miralax) 17 gm DAILY PRN GT Constipation 11/02/19 08:30 12/02/19 07:59 Polymyxin B Sulfate 243639 units/Dextrose 550 ml @ 550 mls/hr EVERY 12 HOURS IV 11/16/19 09:00 11/23/19 08:59 11/17/19 20:30 Quetiapine Fumarate (SEROqueL) 50 mg QHS GT 11/02/19 21:00 12/17/19 20:59 11/07/19 21:36 Sennosides (Senokot) 8.6 mg QHS GT 11/02/19 21:00 12/02/19 20:59 11/07/19 21:32 Zinc Oxide (Desitin) 1 applic FOUR TIMES A DAY TOPIC 11/04/19 14:00 12/04/19 13:59 11/17/19 20:29 González Yadav MD Nov 17, 2019 23:05
[2019-11-18] VITALS: BP 122/61
[2019-11-18 04:00] VITALS: BP 127/70
[2019-11-18 05:10] LABS: HEMOGLOBIN 8.4 G/DL (12.0-16.0); MEAN CORPUSCULAR VOLUME 92 FL (80-99); PLATELET COUNT 29 K/UL (150-450); RED BLOOD COUNT 2.93 M/UL (4.20-5.40); RED CELL DISTRIBUTION WIDTH 15.5 % (11.6-14.8)
[2019-11-18 05:32] LABS: BLOOD UREA NITROGEN 18 mg/dL (7-18); CALCIUM 7.8 MG/DL (8.5-10.1); CHLORIDE 110 MMOL/L (98-107); CREATININE 0.7 MG/DL (0.55-1.30); POTASSIUM 4.4 MMOL/L (3.5-5.1); SODIUM 141 MMOL/L (136-145)
[2019-11-18 05:37] LABS: WHITE BLOOD COUNT 78.3 K/UL (4.8-10.8)
--- NOTE | 2019-11-18 05:37 | NUR ---
NURSE NOTES: Yang from Lab called to report WBC 78.3. Will endorse to next shift. Patient has a HX of elevated WBCs, previously notified.
[2019-11-18 05:43] LABS: ALANINE AMINOTRANSFERASE 11 U/L (12-78); ALBUMIN 1.5 G/DL (3.4-5.0); ALKALINE PHOSPHATASE 64 U/L (46-116); ASPARTATE AMINO TRANSFERASE 38 U/L (15-37); BILIRUBIN,DIRECT 0.1 MG/DL (0.0-0.3); BILIRUBIN,TOTAL 0.3 MG/DL (0.2-1.0); CREATINE KINASE 32 U/L (26-308)
[2019-11-18] MEDS: NovoLOG Insulin Flexpen SUBQ SCH ×4 (06:00→17:54)
[2019-11-18 06:01] LABS: CARBON DIOXIDE 25 MMOL/L (21-32)
--- NOTE | 2019-11-18 07:15 | NUR ---
HAND-OFF: Report given to Nancy Moon RN.
--- NOTE | 2019-11-18 07:34 | NUR ---
NURSE NOTES: Received report from [facility]. Patient in bed resting, no active s/s cardiac, respiratory distress noticed at this time. Patient Obtundent, ST with HR 115. Trach to kvng Shiley 6 AC 20 TV 400 Fio2 45% PEEP 5 O2 sat 100% at this time. Endorsed NPO status, GT dressing intact and dry at this time. PICC line on left upper arm, patent, intact. TPN running as prescribed rate 78ml/h, IVF D5 20mEq KCl running as prescribed rate 50ml/h. Bailey Catheter draining well to gravity. Bed in lowest position and locked, side rails upx3, call light within reach, bed alarm on, contact isolation observed. Will continue to monitor.
[2019-11-18 08:00] VITALS: BP 124/62
--- NOTE | 2019-11-18 08:23 | NUR ---
RD ASSESSMENT & RECOMMENDATIONS SEE CARE ACTIVITY FOR COMPLETE ASSESSMENT DAILY ESTIMATED NEEDS: Needs based on Critical care, wounds, 64kg 22-28 kcals/kg [id number] total kcals 1.25-2 g protein/kg 80-128 g total protein 25-30 mL/kg 0407-1935 total fluid mLs NUTRITION DIAGNOSIS: Swallowing difficulty r/t respiratory status as evidenced by pt is trach and peg dep, currently NPO, on TPN, . CURRENT TF: NPO, on TPN PARENTERAL NUTRITION RECOMMENDATIONS: D/AA Rate: 70 IL Rate: 8 Total Rate: 78 Volume: 1872 % Dextrose: 18 % AA: 5.5 Energy (kcals/kg): 1781 Protein (g/kg protein): 92 Nonprotein KCALS: 1412 GIR (mg CHO/kg/min): 3.3 % Fat KCALS: 22 NPC: N Ratio: 96:1 TPN Comment: - Maintain current TPN: -> D18%, AA 5.5% @70ml/hr w/ 20%IL @8ml/hr - all 3:1 - TF at goal meets 100% est needs, provides 28 kcal/kg and 1.4g/kg pro. - GIR<5 - IL <30% ----- ADDITIONAL RECOMMENDATIONS: 1) Per SNF: 65 inches (5'5"); 141 lbs (64.1kg) 2) Wound care: add MEIR BID via GT w/ TF order; hold w/ TPN 3) Monitor lytes, BG, and LFT's on TPN - check phos and mag (last Mag 1.7) - Watch LFT's, AST trending up 4) With TPN at goal rec to HOLD added D5
[2019-11-18] MEDS: Levodopa/Carbidopa 25/100 tab GT SCH ×4 (09:00→20:02)
[2019-11-18] MEDS: Ascorbic Acid 500mg tab GT SCH (09:00)
[2019-11-18] MEDS: Docusate 100mg/10ml Liq GT SCH (09:00)
[2019-11-18] MEDS: Entacapone 200mg tab ORAL SCH ×3 (09:00→17:54)
[2019-11-18] MEDS: Multivitamins W/Minerals 15 ML UDC GT SCH (09:00)
[2019-11-18] MEDS: Pantoprazole Inj IVP SCH (09:11)
[2019-11-18] MEDS: Desitin Rash Paste TOPIC SCH ×4 (09:11→20:02)
--- NOTE | 2019-11-18 09:16 | NUR ---
RADIOLOGY DEPT., CHEST X-RAY DONE.-P.DYE
[2019-11-18] MEDS: Polymyxin B Sulfate 500,000 UNITS in D5W 500ml 550 ML IV SCH ×2 (09:18→20:02)
--- NOTE | 2019-11-18 10:24 | NUR ---
CASE MANAGEMENT: REVIEW 11/18/2019 SI:SEPSIS. VS: T 98.4 HR 115 RR 30 B/P 127/70 SATS 100% ON MECH VENT FIO2 40 LABS: WBC 78.3 CL 110 GLU 151 CA 7.8 AST 38 ALT 11 IS:DEXTROSE IV @ 50 ML/HR PROTONIX IV QD TPN @ 78 ML/HR LEVAQUIN IV Q24H DAPTOMYCIN IV Q24H MICAFUNGIN IV Q24H INSULIN ASPART SUBQ Q6H POLYMYXIN IV Q12H SDU
--- NOTE | 2019-11-18 11:04 | General Progress Note ---
Assessment/Plan Status: stable, unchanged Assessment/Plan: 1. AML. 2. Respiratory failure with vent. 3. Dysphagia with G-tube. 4. Ovarian mass. 5. Advanced Parkinson disease. 6. Anemia requiring blood transfusion in the past. 7. Dementia. 8. Pancytopenia. unable to place GJT due to very large gastrocutaneous fibula on TPN hypotension abx per ID s/p blood and plt transfusion less leakage from the old GT site pending GJT placement when leakage is less poor prognosis Subjective ROS Limited/Unobtainable: No Allergies: Coded Allergies: PENICILLINS (Verified Allergy, Unknown, 11/01/19) VANCOMYCIN (Verified Allergy, Unknown, 11/01/19) Uncoded Allergies: PENICI (Allergy, Unknown, 11/01/19) Objective Last 24 Hour Vital Signs Date Time Temp Pulse Resp B/P (MAP) Pulse Ox O2 Delivery O2 Flow Rate FiO2 11/18/19 08:00 Mechanical Ventilator 11/18/19 08:00 40 11/18/19 08:00 98.1 110 24 124/62 (82) 100 11/18/19 07:48 110 11/18/19 06:32 108 23 40 11/18/19 04:00 40 11/18/19 04:00 115 11/18/19 04:00 98.4 115 30 127/70 (89) 100 11/18/19 04:00 Mechanical Ventilator 11/18/19 03:30 112 21 40 11/18/19 00:00 99.0 115 26 122/61 (81) 100 11/18/19 00:00 Mechanical Ventilator 11/18/19 00:00 40 11/17/19 23:15 104 28 40 11/17/19 20:00 113 11/17/19 20:00 99.0 115 26 119/67 (84) 100 11/17/19 20:00 Mechanical Ventilator 11/17/19 20:00 40 11/17/19 19:38 116 27 40 11/17/19 16:00 Mechanical Ventilator 11/17/19 16:00 40 11/17/19 16:00 117 11/17/19 16:00 98.6 112 25 119/62 (81) 100 11/17/19 14:35 102 24 40 11/17/19 12:00 Mechanical Ventilator 11/17/19 12:00 40 11/17/19 12:00 98.6 109 24 117/59 (78) 100 11/17/19 12:00 108 11/17/19 11:10 109 25 40 Intake and Output 11/17/19 11/18/19 19:00 07:00 Intake Total 2180 ml 2086 ml Output Total 1200 ml 1550 ml Balance 980 ml 536 ml IV Total 2180 ml 2086 ml Output Urine Total 1200 ml 1550 ml Laboratory Tests 11/17/19 12:20: POC Whole Blood Glucose [Pending] 11/17/19 17:26: POC Whole Blood Glucose [Pending] 11/17/19 23:45: POC Whole Blood Glucose 130H 11/18/19 04:25: White Blood Count 78.3*H, Red Blood Count 2.93L, Hemoglobin 8.4L, Hematocrit 27.0L, Mean Corpuscular Volume 92, Mean Corpuscular Hemoglobin 28.7, Mean Corpuscular Hemoglobin Concent 31.1L, Red Cell Distribution Width 15.5H, Platelet Count 29L, Mean Platelet Volume 12.1H, Neutrophils (%) (Auto) , Lymphocytes (%) (Auto) , Monocytes (%) (Auto) , Eosinophils (%) (Auto) , Basophils (%) (Auto) , Differential Total Cells Counted 100, Neutrophils % ( Manual) 2L, Lymphocytes % (Manual) 15L, Monocytes % (Manual) 14H, Eosinophils % (Manual) 1, Basophils % (Manual) 0, Blast Cells % 68*H, Band Neutrophils 0, Nucleated Red Blood Cells 4, Platelet Estimate DecreasedL, Platelet Morphology Normal, Anisocytosis 1+, Sodium Level 141, Potassium Level 4.4, Chloride Level 110H, Carbon Dioxide Level 25, Blood Urea Nitrogen 18, Creatinine 0.7, Estimat Glomerular Filtration Rate > 60, Glucose Level 151H, Calcium Level 7.8L, Total Bilirubin 0.3, Direct Bilirubin 0.1, Aspartate Amino Transf (AST/SGOT) 38H, Alanine Aminotransferase (ALT/SGPT) 11L, Alkaline Phosphatase 64, Total Creatine Kinase 32, Total Protein 4.5L, Albumin 1.5L 11/18/19 05:16: POC Whole Blood Glucose 125H Height (Feet): 5 Height (Inches): 3.00 Weight (Pounds): 158 General Appearance: no apparent distress EENT: normal ENT inspection Neck: supple Cardiovascular: normal rate Respiratory/Chest: decreased breath sounds Abdomen: normal bowel sounds, non tender, soft Extremities: non-tender Negro Reeves MD Nov 18, 2019 11:04
--- NOTE | 2019-11-18 11:16 | NUR ---
NURSE NOTES: Per Dr. Reeves, discontinue IVF. Order noted, entered, carried out. Will continue to monitor.
--- NOTE | 2019-11-18 11:45 | Pulmonology Progress Note ---
Martha Chandler CHAIN MACHINE OPERATOR 11/18/19 1145: Subjective ROS Limited/Unobtainable: No Constitutional: Reports: other - trach/vent ; Denies: fever Gastrointestinal/Abdominal: Denies: nausea, vomiting, diarrhea Psychiatric: Reports: other - NA Skin: Denies: rash Musculoskeletal: Denies: pain Allergies: Coded Allergies: PENICILLINS (Verified Allergy, Unknown, 11/01/19) VANCOMYCIN (Verified Allergy, Unknown, 11/01/19) Uncoded Allergies: PENICI (Allergy, Unknown, 11/01/19) All Systems: reviewed and negative except above Subjective no signs of resp distress on current vent settings leukocytosis up to 78.3 no fevers for 24 hrs PICC exchanged 11/15 s/p EGD , removal of G tube 10/07 on TPN since 11/08 s/p 1 u PRNC and 1 u plateletpheresis 11/14 -> 11/17 PLT 29, Hgb 8.4 Objective Last 24 Hour Vital Signs Date Time Temp Pulse Resp B/P (MAP) Pulse Ox O2 Delivery O2 Flow Rate FiO2 11/18/19 10:52 112 25 40 11/18/19 08:00 Mechanical Ventilator 11/18/19 08:00 40 11/18/19 08:00 98.1 110 24 124/62 (82) 100 11/18/19 07:48 110 11/18/19 06:32 108 23 40 11/18/19 04:00 40 11/18/19 04:00 115 11/18/19 04:00 98.4 115 30 127/70 (89) 100 11/18/19 04:00 Mechanical Ventilator 11/18/19 03:30 112 21 40 11/18/19 00:00 99.0 115 26 122/61 (81) 100 11/18/19 00:00 Mechanical Ventilator 11/18/19 00:00 40 11/17/19 23:15 104 28 40 11/17/19 20:00 113 11/17/19 20:00 99.0 115 26 119/67 (84) 100 11/17/19 20:00 Mechanical Ventilator 11/17/19 20:00 40 11/17/19 19:38 116 27 40 11/17/19 16:00 Mechanical Ventilator 11/17/19 16:00 40 11/17/19 16:00 117 11/17/19 16:00 98.6 112 25 119/62 (81) 100 11/17/19 14:35 102 24 40 11/17/19 12:00 Mechanical Ventilator 11/17/19 12:00 40 11/17/19 12:00 98.6 109 24 117/59 (78) 100 11/17/19 12:00 108 Intake and Output 11/17/19 11/18/19 19:00 07:00 Intake Total 2180 ml 2086 ml Output Total 1200 ml 1550 ml Balance 980 ml 536 ml IV Total 2180 ml 2086 ml Output Urine Total 1200 ml 1550 ml Objective General Appearance: no apparent distress, bedridden, vent dependent chronically ill appearing female Lines, tubes and drains: peripheral HEENT: normocephalic, atraumatic, anicteric, status post trach: Shiley #6, secretions small amount, thick consistency, white color , Vent AC 400-40%-20 PEEP 5 Respiratory/Chest: no respiratory distress, few scattered rhonchi Cardiovascular/Chest: regular rhythm, LUE PICC intact Abdomen: non tender, soft, distended, dressing over old G tube site , saturating frequently, currently just changed, dry Extremities: no edema, spastic LE Skin Exam: warm/dry, multiple DTI POA ( sacral, ankle foot, elbow) Neurologic: abnormal gait : bedridden, not responsive Musculoskeletal: atrophy - BLE Laboratory Tests 11/17/19 12:20: POC Whole Blood Glucose [Pending] 11/17/19 17:26: POC Whole Blood Glucose [Pending] 11/17/19 23:45: POC Whole Blood Glucose 130H 11/18/19 04:25: White Blood Count 78.3*H, Red Blood Count 2.93L, Hemoglobin 8.4L, Hematocrit 27.0L, Mean Corpuscular Volume 92, Mean Corpuscular Hemoglobin 28.7, Mean Corpuscular Hemoglobin Concent 31.1L, Red Cell Distribution Width 15.5H, Platelet Count 29L, Mean Platelet Volume 12.1H, Neutrophils (%) (Auto) , Lymphocytes (%) (Auto) , Monocytes (%) (Auto) , Eosinophils (%) (Auto) , Basophils (%) (Auto) , Differential Total Cells Counted 100, Neutrophils % ( Manual) 2L, Lymphocytes % (Manual) 15L, Monocytes % (Manual) 14H, Eosinophils % (Manual) 1, Basophils % (Manual) 0, Blast Cells % 68*H, Band Neutrophils 0, Nucleated Red Blood Cells 4, Platelet Estimate DecreasedL, Platelet Morphology Normal, Anisocytosis 1+, Sodium Level 141, Potassium Level 4.4, Chloride Level 110H, Carbon Dioxide Level 25, Blood Urea Nitrogen 18, Creatinine 0.7, Estimat Glomerular Filtration Rate > 60, Glucose Level 151H, Calcium Level 7.8L, Total Bilirubin 0.3, Direct Bilirubin 0.1, Aspartate Amino Transf (AST/SGOT) 38H, Alanine Aminotransferase (ALT/SGPT) 11L, Alkaline Phosphatase 64, Total Creatine Kinase 32, Total Protein 4.5L, Albumin 1.5L 11/18/19 05:16: POC Whole Blood Glucose 125H Current Medications Medications (Trade) Dose Ordered Sig/Inna Route PRN Reason Start Time Stop Time Status Last Admin Dose Admin Acetaminophen (Tylenol) 650 mg Q4H PRN GT fever 100.4, mild pain 11/10/19 10:00 12/01/19 23:14 Acetaminophen (Tylenol) 650 mg Q4H PRN RECTAL Temp >100.5 11/08/19 21:30 12/08/19 21:29 11/16/19 00:40 Albuterol/ Ipratropium (Albuterol/ Ipratropium) 3 ml Q4H PRN HHN Shortness of Breath 11/15/19 09:45 11/20/19 09:44 Ascorbic Acid (Vitamin C) 500 mg DAILY GT 11/02/19 09:00 12/02/19 08:59 11/08/19 08:42 Carbidopa/Levodopa (Sinemet 25/100) 2 tab QID GT 11/02/19 09:00 12/02/19 08:59 11/08/19 08:42 Chlorhexidine Gluconate (Josefa-Hex 2%) 1 applic DAILY@2000 TOPIC 11/15/19 20:00 02/13/20 19:59 11/17/19 20:25 Daptomycin 500 mg/ Sodium Chloride 50 ml @ 100 mls/hr Q24H IV 11/14/19 16:00 11/21/19 15:59 11/17/19 17:28 Dextrose 1,000 ml @ 0 mls/hr Q24H PRN IV PN interrupted or unavailable 11/09/19 20:00 12/09/19 19:59 Dextrose (Dextrose 50%) 25 ml Q30M PRN IV Hypoglycemia 11/09/19 20:00 02/07/20 19:59 Dextrose (Dextrose 50%) 50 ml Q30M PRN IV Hypoglycemia 11/09/19 20:00 02/07/20 19:59 Docusate Sodium (Colace) 100 mg DAILY GT 11/02/19 09:00 12/02/19 08:59 11/08/19 08:41 Entacapone (Comtan) 400 mg THREE TIMES A DAY ORAL 11/10/19 13:00 12/02/19 17:59 Fat Emulsion Intravenous 192 ml/Amino Acids/ Electrolytes/ Dextrose 1,872 ml @ 78 mls/hr Q24H IV 11/11/19 20:00 12/11/19 19:59 11/17/19 20:23 Insulin Aspart (NovoLOG) Q6HR SUBQ 11/06/19 12:00 02/04/20 11:59 11/17/19 12:26 Levofloxacin 50 ml @ 50 mls/hr Q24H IVPB 11/13/19 09:00 11/29/19 23:59 11/18/19 09:18 Metoclopramide HCl (Reglan) 5 mg Q6H PRN IVP nausea or vomiting 11/01/19 23:15 12/01/19 23:14 11/02/19 12:51 Micafungin Sodium 100 mg/Sodium Chloride 110 ml @ 110 mls/hr Q24H IVPB 11/13/19 21:00 11/23/19 23:59 11/17/19 20:30 Multivitamins (Multivitamins W/ Minerals 15ml Liquid) 15 ml DAILY GT 11/02/19 09:00 12/02/19 08:59 11/08/19 08:42 Ondansetron HCl (Zofran) 4 mg Q4H PRN IVP Nausea & Vomiting 11/01/19 23:15 12/01/19 23:14 Pantoprazole (Protonix) 40 mg DAILY IVP 11/05/19 09:00 12/05/19 08:59 11/18/19 09:11 Polyethylene Glycol (Miralax) 17 gm DAILY PRN GT Constipation 11/02/19 08:30 12/02/19 07:59 Polymyxin B Sulfate 543937 units/Dextrose 550 ml @ 550 mls/hr EVERY 12 HOURS IV 11/16/19 09:00 11/23/19 08:59 11/18/19 09:18 Quetiapine Fumarate (SEROqueL) 50 mg QHS GT 11/02/19 21:00 12/17/19 20:59 11/07/19 21:36 Sennosides (Senokot) 8.6 mg QHS GT 11/02/19 21:00 12/02/19 20:59 11/07/19 21:32 Zinc Oxide (Desitin) 1 applic FOUR TIMES A DAY TOPIC 11/04/19 14:00 12/04/19 13:59 11/18/19 09:11 Assessment/Plan Assessment/Plan ASSESSMENT Chronic respiratory failure ventilator dependent with tracheostomy status Sepsis Bacteremia Persistent fevers Hypotension, possible early shock - resolved Pneumonia, possible aspiration UTI with Klebsiella pneumonia CRE Hypotension, possible early shock - resolved 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), s/p 2 u PRBC Pancytopenia Leukocytosis Dysphagia, feeding by G-tube Advanced Parkinson's disease Severe protein calorie malnutrition Malfunctioning G tube ( inadvertently was removed), s/p EGD and removal of G tube Multiple DTI , POA Ovarian mass consistent with neoplasm AML Suspected COVID-19 infection -ruled out Severe protein calorie malnutrition Functional quadriplegia E/lyte abnormalities PLAN OF CARE back in [facility] ( from ICU, responded to IVC boluses and albumin boluses) ventilator support, trach care, pulm toilet ABG stable on current settings, keep as is and optimize as needed CXR 11/06 unchanged, SCX 11/05 Providencia , Klebsiella CRE, Pseudomonas CXR 11/09 no change: Tracheostomy remains in place. Basilar infiltrates not significantly changed. Small effusions unchanged CXR 11/12 -Persistent low lung volumes, may be related to shallow inspiration. Bilateral patchy interstitial and air space opacities, most prominent in the left lung base. Stable to mildly worsened compared to the prior exam and is concerning for pneumonia versus pulmonary edema. Possible small left pleural effusion. CXR 11/14 - Slight worsening of bilateral alveolar densities which could be worsening infiltrates and/or edema repeat CXR in am 11/16 BCX 10/31 1 Staph haemolyticus, likely contaminant BCX 11/01 05/28 MRSA BCX 11/03 NGTD UCX Klebsiella CRE BCX 11/05 ACB MDR, Staph BCX 11/06 NGTD BCX 11/10 GNR UCX 11/10 + yeast BCX 11/13 NGTD abx as per ID recs -Dapto, Poly and Meropenem, Levaquin and Micafungin added later as per ID recs leuk again with trend up , no fevers for the alst 24 hrs RUE PICC was dc with tip cx and LUE PICC inserted by IR 11/15 -CT A/P 11/09 BILATERAL SMALL PLEURAL EFFUSIONS AND DEPENDENT INFILTRATES. HUGE SEPTATED CYSTIC MASS ARISING FROM THE PELVIS EXTENDING INTO THE ABDOMEN MOST LIKELY OF OVARIAN ORIGIN. SMALL AMOUNT OF FREE FLUID ADJACENT TO THE HEPATIC AND SPLENIC EDGE WELL IN THE PELVIS. LEFT RENAL STONE. POSSIBLE SLUDGE OR NONCALCIFIED STONES LAYERING IN THE GALLBLADDER. LEFT LOWER QUADRANT STOMA. SEVERE DEGENERATIVE CHANGES AND DEXTROSCOLIOSIS OF THE SPINE. ANASARCA. ECHO with pEF 55%, no discrete vegetation seen COVID 11/01 NGT, Venous Duplex BLE NGT, apply SCD, monitor HH with goal to keep Hgb >7, trend PLT severe pancytopenia likely 2 to AML will transfuse with 1 unit PLT-pheresis and 1 u PRBC today leukocytosis 2 to sepsis and partially probably due to malignancy/AML and ovarian Ca gentle IVF replace lytes as needed, monitor volumes asp precautions GT was inadvertently removed s/p replacement 11/03 by GI started TF still leaking plan replacement with GJ tube but cancelled due to leukocytosis s/p EGD 11/07, old G tube removed, unable to place a new one due to a large site , currently on TPN strict aspir precautions protein supplement as per RD recs continue SNF meds as per primary supportive care bowel regimen wound care as per surgeon recs overall prognosis grave, given multiple comorbidities, with superimposed AML and ovarian mass, extent of care DNR/DNI status family declined transfer to [facility] at this time case discussed and evaluated by supervising physician Jerrell Wilson MD 11/18/19 1410: Subjective Allergies: Coded Allergies: PENICILLINS (Verified Allergy, Unknown, 11/01/19) VANCOMYCIN (Verified Allergy, Unknown, 6/9/20) Uncoded Allergies: PENICI (Allergy, Unknown, 11/01/19) Assessment/Plan Assessment/Plan Patient seen and examined with CHAIN MACHINE OPERATOR. Agree with above A&P as it reflects our joint deliberations. Martha Chandler NP Nov 18, 2019 11:45 Jerrell Wilson MD Nov 18, 2019 14:10
[2019-11-18 12:00] VITALS: BP 121/62
--- NOTE | 2019-11-18 12:27 | Internal Med Progress Note ---
Subjective Date of Service: Nov 18, 2019 Physician Name Fredirck Prince Attending Physician Fredrick Prince MD Current Medications Medications (Trade) Dose Ordered Sig/Inna Route PRN Reason Start Time Stop Time Status Last Admin Dose Admin Acetaminophen (Tylenol) 650 mg Q4H PRN GT fever 100.4, mild pain 11/10/19 10:00 12/01/19 23:14 Acetaminophen (Tylenol) 650 mg Q4H PRN RECTAL Temp >100.5 11/08/19 21:30 12/08/19 21:29 11/16/19 00:40 Albuterol/ Ipratropium (Albuterol/ Ipratropium) 3 ml Q4H PRN HHN Shortness of Breath 11/15/19 09:45 11/20/19 09:44 Ascorbic Acid (Vitamin C) 500 mg DAILY GT 11/02/19 09:00 12/02/19 08:59 11/08/19 08:42 Carbidopa/Levodopa (Sinemet 25/100) 2 tab QID GT 11/02/19 09:00 12/02/19 08:59 11/08/19 08:42 Chlorhexidine Gluconate (Josefa-Hex 2%) 1 applic DAILY@2000 TOPIC 11/15/19 20:00 02/13/20 19:59 11/17/19 20:25 Daptomycin 500 mg/ Sodium Chloride 50 ml @ 100 mls/hr Q24H IV 11/14/19 16:00 11/21/19 15:59 11/17/19 17:28 Dextrose 1,000 ml @ 0 mls/hr Q24H PRN IV PN interrupted or unavailable 11/09/19 20:00 12/09/19 19:59 Dextrose (Dextrose 50%) 25 ml Q30M PRN IV Hypoglycemia 11/09/19 20:00 02/07/20 19:59 Dextrose (Dextrose 50%) 50 ml Q30M PRN IV Hypoglycemia 11/09/19 20:00 02/07/20 19:59 Docusate Sodium (Colace) 100 mg DAILY GT 11/02/19 09:00 12/02/19 08:59 11/08/19 08:41 Entacapone (Comtan) 400 mg THREE TIMES A DAY ORAL 11/10/19 13:00 12/02/19 17:59 Fat Emulsion Intravenous 192 ml/Amino Acids/ Electrolytes/ Dextrose 1,872 ml @ 78 mls/hr Q24H IV 11/11/19 20:00 12/11/19 19:59 11/17/19 20:23 Insulin Aspart (NovoLOG) Q6HR SUBQ 11/06/19 12:00 02/04/20 11:59 11/17/19 12:26 Levofloxacin 50 ml @ 50 mls/hr Q24H IVPB 11/13/19 09:00 11/29/19 23:59 11/18/19 09:18 Metoclopramide HCl (Reglan) 5 mg Q6H PRN IVP nausea or vomiting 11/01/19 23:15 12/01/19 23:14 11/02/19 12:51 Micafungin Sodium 100 mg/Sodium Chloride 110 ml @ 110 mls/hr Q24H IVPB 11/13/19 21:00 11/23/19 23:59 11/17/19 20:30 Multivitamins (Multivitamins W/ Minerals 15ml Liquid) 15 ml DAILY GT 11/02/19 09:00 12/02/19 08:59 11/08/19 08:42 Ondansetron HCl (Zofran) 4 mg Q4H PRN IVP Nausea & Vomiting 11/01/19 23:15 12/01/19 23:14 Pantoprazole (Protonix) 40 mg DAILY IVP 11/05/19 09:00 12/05/19 08:59 11/18/19 09:11 Polyethylene Glycol (Miralax) 17 gm DAILY PRN GT Constipation 11/02/19 08:30 12/02/19 07:59 Polymyxin B Sulfate 422698 units/Dextrose 550 ml @ 550 mls/hr EVERY 12 HOURS IV 11/16/19 09:00 11/23/19 08:59 11/18/19 09:18 Quetiapine Fumarate (SEROqueL) 50 mg QHS GT 11/02/19 21:00 12/17/19 20:59 11/07/19 21:36 Sennosides (Senokot) 8.6 mg QHS GT 11/02/19 21:00 12/02/19 20:59 11/07/19 21:32 Zinc Oxide (Desitin) 1 applic FOUR TIMES A DAY TOPIC 11/04/19 14:00 12/04/19 13:59 11/18/19 09:11 Allergies: Coded Allergies: PENICILLINS (Verified Allergy, Unknown, 11/01/19) VANCOMYCIN (Verified Allergy, Unknown, 11/01/19) Uncoded Allergies: PENICI (Allergy, Unknown, 11/01/19) ROS Limited/Unobtainable: Yes All Systems: reviewed and negative except above Subjective d/w gi plan for EGD on thursday for PEG j vs NGJ tube so she can come off TPN Family appealed DC to [facility] yesterday non verbal, chronic trach GJ tube failed due to big whole now closing on TPN Objective Last Vital Signs Date Time Temp Pulse Resp B/P (MAP) Pulse Ox O2 Delivery O2 Flow Rate FiO2 11/18/19 10:52 112 25 40 11/18/19 08:00 Mechanical Ventilator 11/18/19 08:00 98.1 124/62 (82) 100 General Appearance: no apparent distress EENT: other - tarch Cardiovascular: normal rate, regular rhythm, systolic murmur Respiratory/Chest: rhonchi - bilaterally Abdomen: normal bowel sounds, non tender, soft Edema: other - +edema Neurologic: aphasia Skin: warm/dry Laboratory Tests Test 11/17/19 17:26 11/17/19 23:45 11/18/19 04:25 11/18/19 05:16 POC Whole Blood Glucose Pending 130 MG/DL (74-106) H 125 MG/DL (74-106) H White Blood Count 78.3 K/UL (4.8-10.8) *H Red Blood Count 2.93 M/UL (4.20-5.40) L Hemoglobin 8.4 G/DL (12.0-16.0) L Hematocrit 27.0 % (37.0-47.0) L Mean Corpuscular Volume 92 FL (80-99) Mean Corpuscular Hemoglobin 28.7 PG (27.0-31.0) Mean Corpuscular Hemoglobin Concent 31.1 G/DL (32.0-36.0) L Red Cell Distribution Width 15.5 % (11.6-14.8) H Platelet Count 29 K/UL (150-450) L Mean Platelet Volume 12.1 FL (6.5-10.1) H Neutrophils (%) (Auto) % (45.0-75.0) Lymphocytes (%) (Auto) % (20.0-45.0) Monocytes (%) (Auto) % (1.0-10.0) Eosinophils (%) (Auto) % (0.0-3.0) Basophils (%) (Auto) % (0.0-2.0) Differential Total Cells Counted 100 Neutrophils % (Manual) 2 % (45-75) L Lymphocytes % (Manual) 15 % (20-45) L Monocytes % (Manual) 14 % (1-10) H Eosinophils % (Manual) 1 % (0-3) Basophils % (Manual) 0 % (0-2) Blast Cells % 68 % (0-0) *H Band Neutrophils 0 % (0-8) Nucleated Red Blood Cells 4 /100 WBC Platelet Estimate Decreased L Platelet Morphology Normal Anisocytosis 1+ Sodium Level 141 MMOL/L (136-145) Potassium Level 4.4 MMOL/L (3.5-5.1) Chloride Level 110 MMOL/L (98-107) H Carbon Dioxide Level 25 MMOL/L (21-32) Blood Urea Nitrogen 18 mg/dL (7-18) Creatinine 0.7 MG/DL (0.55-1.30) Estimat Glomerular Filtration Rate > 60 mL/min (>60) Glucose Level 151 MG/DL (74-106) H Calcium Level 7.8 MG/DL (8.5-10.1) L Total Bilirubin 0.3 MG/DL (0.2-1.0) Direct Bilirubin 0.1 MG/DL (0.0-0.3) Aspartate Amino Transf (AST/SGOT) 38 U/L (15-37) H Alanine Aminotransferase (ALT/SGPT) 11 U/L (12-78) L Alkaline Phosphatase 64 U/L (46-116) Total Creatine Kinase 32 U/L (26-308) Total Protein 4.5 G/DL (6.4-8.2) L Albumin 1.5 G/DL (3.4-5.0) L Test 11/18/19 11:53 POC Whole Blood Glucose 163 MG/DL (74-106) H Intake and Output 11/17/19 11/18/19 19:00 07:00 Intake Total 2180 ml 2086 ml Output Total 1200 ml 1550 ml Balance 980 ml 536 ml IV Total 2180 ml 2086 ml Output Urine Total 1200 ml 1550 ml Objective unable to place J tube .on TPN Assessment/Plan Status: stable, unchanged Assessment/Plan Impression: sepsis on admission septic shock line sepsis acinectobacter bacteremia fungal cystitis 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 per ID polymyxin x 7days abnd bactrim PO upon DC from today s/p platelet tx one unit 11/14 prbc tx one unit 11/14 remove 1st PICC IVF NS plus TPN ltach bobby transfer d/w family. /son NOT in agreement. appealed DC. CM f/u abx broaden per ID worsening wbc could be AML flare microfungin on TPN. d/w GI PGE/J in few week unable to put PEG J tube due to large whole KCL IV replete prn s/p Mg sulfate IV 2 gram leukocytosis could be AML flare IV abx per ID wound care f/u cx ID f/u electrolyte replete as needed enteral feeding ventilator pulm HHN dong pain control dc aricept, allopurinol DNAR status Fredrick Prince MD Internal Medicine [phone] time spent today 50 minutes stamp time on this note may NOT be the actual encounter time. Fredrick Prince MD Nov 18, 2019 12:27
--- NOTE | 2019-11-18 12:29 | Diagnostic Imaging Report ---
Procedure: XRAY Chest 1v Reason for study: Reason For Exam: SOB Comparison films: 11/15/2019. FINDINGS: Tracheostomy remains in place. Bilateral congestion and edema are unchanged. Cardiac silhouette is obscured. Effusions unchanged. The bony thorax appear unremarkable. IMPRESSION: NO SIGNIFICANT CHANGE COMPARED TO PREVIOUS EXAM.
--- NOTE | 2019-11-18 15:14 | NUR ---
CASE MANAGEMENT: NOTE [facility] DECISION: AGREE WITH DISCHARGE TO LOWER LEVEL OF CARE DR NOTIFIED AND SON ALLA MADE AWARE. ALLA CONFIRMED THAT [facility] S/W HIM AND DELIVERED THE DENIAL TO HIM PERSONALLY. SON UNDERSTANDS FINANCIAL RESPONSIBILITY BEGINNING 11/18 @ 1200 SON INTENDS TO APPEAL DISCHARGE AGAIN BED AT [facility] IS NO LONGER AVAILABLE PER . DC PLANNING TO [facility] AFTER PEG PLACEMENT POSSIBLY THURSDAY
[2019-11-18 16:00] VITALS: BP 110/60
[2019-11-18] MEDS: DAPTOmycin 500 MG in NS 50 ML IV SCH (16:23)
--- NOTE | 2019-11-18 19:08 | Surgery Progress Note ---
Surgery Progress Note Subjective Additional Comments wound g tube slowly healing on tpn exam stable ill appearing labs noted Objective Last 24 Hour Vital Signs Date Time Temp Pulse Resp B/P (MAP) Pulse Ox O2 Delivery O2 Flow Rate FiO2 11/18/19 16:00 109 11/18/19 16:00 Mechanical Ventilator 11/18/19 14:46 109 22 40 11/18/19 12:00 98.4 112 22 121/62 (81) 100 11/18/19 12:00 40 11/18/19 12:00 Mechanical Ventilator 11/18/19 11:47 111 11/18/19 10:52 112 25 40 11/18/19 08:00 Mechanical Ventilator 11/18/19 08:00 40 11/18/19 08:00 98.1 110 24 124/62 (82) 100 11/18/19 07:48 110 11/18/19 06:32 108 23 40 11/18/19 04:00 40 11/18/19 04:00 115 11/18/19 04:00 98.4 115 30 127/70 (89) 100 11/18/19 04:00 Mechanical Ventilator 11/18/19 03:30 112 21 40 11/18/19 00:00 99.0 115 26 122/61 (81) 100 11/18/19 00:00 Mechanical Ventilator 11/18/19 00:00 40 11/17/19 23:15 104 28 40 11/17/19 20:00 113 11/17/19 20:00 99.0 115 26 119/67 (84) 100 11/17/19 20:00 Mechanical Ventilator 11/17/19 20:00 40 11/17/19 19:38 116 27 40 I&O Intake and Output 11/17/19 11/18/19 19:00 07:00 Intake Total 2180 ml 2086 ml Output Total 1200 ml 1550 ml Balance 980 ml 536 ml IV Total 2180 ml 2086 ml Output Urine Total 1200 ml 1550 ml Dressing: other Wound: other Drains: other Cardiovascular: RSR Respiratory: decreased breath sounds Abdomen: soft, non-tender, present bowel sounds Extremities: no cyanosis, other Laboratory Tests Test 11/17/19 23:45 11/18/19 04:25 11/18/19 05:16 11/18/19 11:53 POC Whole Blood Glucose 130 MG/DL (74-106) H 125 MG/DL (74-106) H 163 MG/DL (74-106) H White Blood Count 78.3 K/UL (4.8-10.8) *H Red Blood Count 2.93 M/UL (4.20-5.40) L Hemoglobin 8.4 G/DL (12.0-16.0) L Hematocrit 27.0 % (37.0-47.0) L Mean Corpuscular Volume 92 FL (80-99) Mean Corpuscular Hemoglobin 28.7 PG (27.0-31.0) Mean Corpuscular Hemoglobin Concent 31.1 G/DL (32.0-36.0) L Red Cell Distribution Width 15.5 % (11.6-14.8) H Platelet Count 29 K/UL (150-450) L Mean Platelet Volume 12.1 FL (6.5-10.1) H Neutrophils (%) (Auto) % (45.0-75.0) Lymphocytes (%) (Auto) % (20.0-45.0) Monocytes (%) (Auto) % (1.0-10.0) Eosinophils (%) (Auto) % (0.0-3.0) Basophils (%) (Auto) % (0.0-2.0) Differential Total Cells Counted 100 Neutrophils % (Manual) 2 % (45-75) L Lymphocytes % (Manual) 15 % (20-45) L Monocytes % (Manual) 14 % (1-10) H Eosinophils % (Manual) 1 % (0-3) Basophils % (Manual) 0 % (0-2) Blast Cells % 68 % (0-0) *H Band Neutrophils 0 % (0-8) Nucleated Red Blood Cells 4 /100 WBC Platelet Estimate Decreased L Platelet Morphology Normal Anisocytosis 1+ Sodium Level 141 MMOL/L (136-145) Potassium Level 4.4 MMOL/L (3.5-5.1) Chloride Level 110 MMOL/L (98-107) H Carbon Dioxide Level 25 MMOL/L (21-32) Blood Urea Nitrogen 18 mg/dL (7-18) Creatinine 0.7 MG/DL (0.55-1.30) Estimat Glomerular Filtration Rate > 60 mL/min (>60) Glucose Level 151 MG/DL (74-106) H Calcium Level 7.8 MG/DL (8.5-10.1) L Total Bilirubin 0.3 MG/DL (0.2-1.0) Direct Bilirubin 0.1 MG/DL (0.0-0.3) Aspartate Amino Transf (AST/SGOT) 38 U/L (15-37) H Alanine Aminotransferase (ALT/SGPT) 11 U/L (12-78) L Alkaline Phosphatase 64 U/L (46-116) Total Creatine Kinase 32 U/L (26-308) Total Protein 4.5 G/DL (6.4-8.2) L Albumin 1.5 G/DL (3.4-5.0) L Test 11/18/19 16:23 POC Whole Blood Glucose 115 MG/DL (74-106) H Plan Problems: (1) Decubitus skin ulcer Assessment & Plan: Pt presented on admission with multiple Pressure Injuries, and contractures. Large Soft Mass noted to lateral R chest ,just inferior to Breast.Soft mass that uis violaceous and denuded. Unstageable Pressure injury R thoracic. Wound presents as partially opened DTPI( L)6cm x (W)8.5cm. 95% Soft eschar flap,5% dee. Marginal erythema along borders In addition scattered linear and purple area periwound. Full thickness stage 4 Sacral Pressure Injury(L)9.3cm x (W)8.7cm. Base of wound is 95% necrotic,but bone is palpable.Mild odor noted. No exudate noted. Non-blanching erythema periwound. Unstageable Pressure Injury R trochanter(L)3.5cm x (W)4.2cm. Base of wound is 90 % soft eschar, 10% pink epithelial. Edges adherent to base of wound .No erythema induration or fluctuance periwound. Unstageable Pressure injury R Ischium(L)3.5cm x (W)2.5cm. Dry eschar at base of wound, edges are adherent with surrounding pink epithelial. No erythema or induration periwound. DTPI L trochanter(L)4cm x (W)1cm. Stable dry eschar L Hallux(L)1.6cm x (W)2cm.NO erythema fluctuance or induration periwound. L 1st metatarsal TMA noted. Stable dry eschar distal/lateral L foot (L)1.5cm x (W)3cm. No erythema, induration or fluctuance periwound. DTPI noted to plantar L foot.(L)0.9cm x (W)0.9cm. Base of wound is fluctuant, purple with maroon borders. Unstageable Pressure injury L lateral Malleolus. Stable dry eschar noted.No erythema or induration periwound. L heel is boggy with non-blanching erythema. Unstageable Pressure injury R Hallux and plantar aspect(L)3.5cm x (W)3.4cm. Soft eschar at base of wound with marginal erythema along borders. R heel is boggy with Non-Blanching erythema. Unstageable Presure injury distal/Lateral R foot . Stable dry eschar noted . No erythema of fluctuance periwound. Tx.Plan: Cleanse Sacral Wound with Saline. Loosely pack with Therahoney impregnated Kerlix.Applpy Moisture Barrier Paste periwound. Cover with Optifoam drsg. Change Daily and prn. Cleanse Soft Mass R chest with Saline. Cover with Optifoam drsg. Change Daily and prn. Cleanse wounds R trochanter, R Ischium with Saline. Apply Moisture Barrier Paste.Cover with Optifoam drsg. Change every 3 days and prn. Apply Moisture Barrier to L trochanter. Cvoer with Optifoam drsg. Change every 3 days and prn. Apply Betadine to wounds R and L foot. Cover each wound with Optifoam drsg. Changee very 3 days and prn. Apply Cavilon Skin Barrier to both heels. Cover each heel with Optifoam drsg. Change every 7 days and prn. APM/ANA Mattress overlay. turn q2h nutritional optimization (2) Malnutrition Assessment & Plan: pending g tube DAILY ESTIMATED NEEDS: Needs based on Critical care, wounds, 64kg 22-28 kcals/kg 6065-2091 total kcals 1.25-2 g protein/kg 80-128 g total protein 25-30 mL/kg 5711-0619 total fluid mLs NUTRITION DIAGNOSIS: Swallowing difficulty r/t respiratory status as evidenced by pt is trach and peg dep, currently NPO, on TPN. CURRENT TF:NPO, on TPN ENTERAL NUTRITION RECOMMENDATIONS: VITAL AF 1.2 @ 55ml/hr x24 hrs to provide 1320ml, 1584 kcal, 99g pro, 1071ml free H2O - Post PEJ placement, initiate Vital AF 1.2 @ 25ml/hr x 6hrs, advance 10ml q 4- 6 hrs as tolerated to goal. - Flush per MD - HOB over 30 degrees PARENTERAL NUTRITION RECOMMENDATIONS: D/AA Rate: 70 IL Rate: 8 Total Rate: 78 Volume: 1872 % Dextrose: 18 % AA: 5.5 Energy (kcals/kg): 1781 Protein (g/kg protein): 92 Nonprotein KCALS: 1412 GIR (mg CHO/kg/min): 3.3 % Fat KCALS: 22 NCP: N Ratio: 96:1 TPN Comment: - Maintain current TPN: -> D18%, AA 5.5% @70ml/hr w/ 20%IL @8ml/hr - all 3:1 - TF at goal meets 100% est needs, provides 28 kcal/kg and 1.4g/kg pro. - GIR<5 - IL <30% ADDITIONAL RECOMMENDATIONS: 1) Per SNF: 65 inches (5'5"); 141 lbs (64.1kg) 2) Wound care: add MEIR BID via GT w/ TF order 3) Monitor lytes, BG, and LFT's on TPN - check phos and mag (not checked since TPN initiation) (3) Anemia Assessment & Plan: transfused trend labs no active bleeding stool study GI eval (4) UTI (urinary tract infection) (5) Tracheostomy dependence Assessment & Plan: Findings: The left hemidiaphragm is elevated. Atelectatic changes are present in the left lung base. There is minimal right basilar atelectasis. No definite infiltrates. There is a tracheostomy. Impression: Elevated left hemidiaphragm with considerable left basilar atelectasis. Less extensive right basilar atelectasis. Inspiration is suboptimal. Interim development of opacity of the left mid and lower lung. The left hemidiaphragm is obscured. Right lung is probably clear , although there is crowding of bronchovascular lung volumes. Tracheostomy remains. Impression: Since 11/01/2019, interim development of left mid and lower lung infiltrates versus edema and possibly pleural fluid Juan Houser Nov 18, 2019 19:08
--- NOTE | 2019-11-18 19:16 | NUR ---
NURSE NOTES: Received patient from SRIKANTH Cruz. Patient in bed with eyes open- obtunded. No signs or symptoms of acute cardiac or respiratory distress noted, pt. appears to be tolerating current vent settings as ordered: A/C 20, TV 600, FiO2 40%, Peep 5- No respiratory distress noted. Patient is currently NPO as endorsed. Bailey intact and draining to gravity. Patient appears to be clean and dry. Noted with Left upper arm PICC double lumen running TPN at 78 mL/hour, Safety measures continued, skin precautions observed, Bed in lowest and locked position. Call light within reach. Side rails up x3. Will continue to monitor and with plan of care.
[2019-11-18] MEDS: TPN IV SCH (19:40)
[2019-11-18] MEDS: FAT EMULSION 20% IV SCH (19:40)
[2019-11-18 20:00] VITALS: BP 120/60
--- NOTE | 2019-11-18 20:00 | NUR ---
NURSE NOTES: Cooling measures applied as pt. has a low grade temp of 99.0 axillary- will continue to monitor pt. and with plan of care- pt. remains stable.
[2019-11-18] MEDS: Sennosides 8.6mg tab GT SCH (20:02)
--- NOTE | 2019-11-18 20:03 | NUR ---
HAND-OFF: Report given to SRIKANTH Ellison. Endorsed plan of care.
[2019-11-18] MEDS: Micafungin 100 MG in NS 110 ML IVPB SCH (20:53)
[2019-11-18] MEDS: Acetaminophen 650 MG SUPP RECTAL PRN (21:43)
[2019-11-19] VITALS: BP 119/62
--- NOTE | 2019-11-19 | NUR ---
NURSE NOTES: bed bath given- oral care provided, repositioned and turned pt., angle care provided, temp trending down- cooling measures continued, will continue to monitor pt. and with plan of care.
[2019-11-19 04:00] VITALS: BP 109/73
[2019-11-19] MEDS: NovoLOG Insulin Flexpen SUBQ SCH ×5 (05:16→23:21)
[2019-11-19 06:27] LABS: HEMATOCRIT 27.9 % (37.0-47.0); HEMOGLOBIN 8.4 G/DL (12.0-16.0); MEAN CORPUSCULAR VOLUME 92 FL (80-99); PLATELET COUNT 41 K/UL (150-450); RED BLOOD COUNT 3.01 M/UL (4.20-5.40); RED CELL DISTRIBUTION WIDTH 15.3 % (11.6-14.8)
[2019-11-19 06:30] LABS: WHITE BLOOD COUNT 102.3 K/UL (4.8-10.8)
--- NOTE | 2019-11-19 06:32 | NUR ---
NURSE NOTES: Critical value received from lab by Sandi, WBC's now 102.3- trending up- per doctors order from nursing order- DR. Downey- elevating WBC's expected- no need to notify .
--- NOTE | 2019-11-19 06:58 | General Progress Note ---
Assessment/Plan Status: stable, unchanged Assessment/Plan: 1. AML. 2. Respiratory failure with vent. 3. Dysphagia with G-tube. 4. Ovarian mass. 5. Advanced Parkinson disease. 6. Anemia requiring blood transfusion in the past. 7. Dementia. 8. Pancytopenia. unable to place GJT due to very large gastrocutaneous fibula on TPN hypotension abx per ID s/p blood and plt transfusion less leakage from the old GT site pending GJT placement when leakage is less possibly this Thursday poor prognosis Subjective ROS Limited/Unobtainable: No Allergies: Coded Allergies: PENICILLINS (Verified Allergy, Unknown, 11/01/19) VANCOMYCIN (Verified Allergy, Unknown, 11/01/19) Uncoded Allergies: PENICI (Allergy, Unknown, 11/01/19) Objective Last 24 Hour Vital Signs Date Time Temp Pulse Resp B/P (MAP) Pulse Ox O2 Delivery O2 Flow Rate FiO2 11/19/19 04:00 Mechanical Ventilator 11/19/19 04:00 97.9 106 22 109/73 (85) 100 11/19/19 04:00 40 11/19/19 03:52 108 11/19/19 03:35 104 20 40 11/19/19 00:00 Mechanical Ventilator 11/19/19 00:00 98.4 107 22 119/62 (81) 100 11/19/19 00:00 40 11/18/19 23:50 107 22 40 11/18/19 23:44 108 11/18/19 22:13 99.3 11/18/19 20:00 40 11/18/19 20:00 Mechanical Ventilator 11/18/19 20:00 99.0 110 24 120/60 (80) 100 11/18/19 20:00 113 11/18/19 19:18 111 25 40 11/18/19 16:00 109 11/18/19 16:00 40 11/18/19 16:00 98.2 109 22 110/60 (77) 100 11/18/19 16:00 Mechanical Ventilator 11/18/19 14:46 109 22 40 11/18/19 12:00 98.4 112 22 121/62 (81) 100 11/18/19 12:00 40 11/18/19 12:00 Mechanical Ventilator 11/18/19 11:47 111 11/18/19 10:52 112 25 40 11/18/19 08:00 Mechanical Ventilator 11/18/19 08:00 40 11/18/19 08:00 98.1 110 24 124/62 (82) 100 11/18/19 07:48 110 Intake and Output 11/18/19 11/19/19 19:00 07:00 Intake Total 818 ml 1466 ml Output Total 950 ml 1100 ml Balance -132 ml 366 ml IV Total 818 ml 1466 ml Output Urine Total 950 ml 1100 ml Laboratory Tests 11/18/19 11:53: POC Whole Blood Glucose 163H 11/18/19 16:23: POC Whole Blood Glucose 115H 11/18/19 23:53: POC Whole Blood Glucose [Pending] 11/19/19 05:12: POC Whole Blood Glucose 102 11/19/19 05:20: White Blood Count 102.3*H, Red Blood Count 3.01L, Hemoglobin 8.4L, Hematocrit 27.9L, Mean Corpuscular Volume 92, Mean Corpuscular Hemoglobin 28.0, Mean Corpuscular Hemoglobin Concent 30.3L, Red Cell Distribution Width 15.3H, Platelet Count 41L, Mean Platelet Volume 13.2H, Neutrophils (%) (Auto) , Lymphocytes (%) (Auto) , Monocytes (%) (Auto) , Eosinophils (%) (Auto) , Basophils (%) (Auto) , Neutrophils % (Manual) [Pending], Lymphocytes % (Manual) [Pending], Platelet Estimate [Pending], Platelet Morphology [Pending], Sodium Level [Pending], Potassium Level [Pending], Chloride Level [Pending], Carbon Dioxide Level [Pending], Blood Urea Nitrogen [Pending], Creatinine [Pending], Estimat Glomerular Filtration Rate [Pending], Glucose Level [Pending], Calcium Level [Pending], Total Bilirubin [Pending], Aspartate Amino Transf (AST/SGOT) [ Pending], Alanine Aminotransferase (ALT/SGPT) [Pending], Alkaline Phosphatase [ Pending], Total Protein [Pending], Albumin [Pending], Globulin [Pending] Height (Feet): 5 Height (Inches): 3.00 Weight (Pounds): 158 General Appearance: alert EENT: normal ENT inspection Neck: supple Cardiovascular: normal rate Respiratory/Chest: decreased breath sounds Abdomen: normal bowel sounds, non tender, soft Extremities: non-tender Negro Reeves MD Nov 19, 2019 06:57
[2019-11-19 07:14] LABS: ALANINE AMINOTRANSFERASE 13 U/L (12-78); ALBUMIN 1.5 G/DL (3.4-5.0); ALBUMIN/GLOBULIN RATIO 0.4 (1.0-2.7); ALKALINE PHOSPHATASE 118 U/L (46-116); ANION GAP 5 mmol/L (5-15); ASPARTATE AMINO TRANSFERASE 41 U/L (15-37); BILIRUBIN,TOTAL 0.5 MG/DL (0.2-1.0); BLOOD UREA NITROGEN 23 mg/dL (7-18); CALCIUM 7.7 MG/DL (8.5-10.1); CARBON DIOXIDE 28 MMOL/L (21-32); CHLORIDE 107 MMOL/L (98-107); CREATININE 0.7 MG/DL (0.55-1.30); POTASSIUM 4.1 MMOL/L (3.5-5.1); SODIUM 140 MMOL/L (136-145)
[2019-11-19] MEDS ORDERED: Fleet's Mineral Oil Enema RECTAL SCH (07:15)
--- NOTE | 2019-11-19 07:15 | NUR ---
HAND-OFF: Report given to Laquita DUKE, pt. remains stable and no signs of distress noted- aware to f/u on any am abnormal labs.
--- NOTE | 2019-11-19 07:20 | NUR ---
NURSE NOTES: Received report from SRIKANTH Ellison. The patient is resting on the bed without acute distress or shortness of breath. The patient is trach'ed and vented and communication made by facial expression and body movement. The patient is on following vent setting as ordered: Shiley 6, AC 20, TV 450, FiO2 45%, PEEP 5 and oxygen saturation is 100%. The patient's HR is 100s with ST on the monitor. G tube site dressing intact and stoma is on healing process, and the patient is kept in NPO per order. The patient has MATTIE double lumen PICC line that is intact and patent and running TPN @78mL/hr as ordered. The patient's Bailey intact and patent and draining by gravity. Skin issue noted and dressing intact. Dr. Reeves was notified regarding severe constipation, and he will order the measure for relief. The patient's bed in the lowest position, call light in reach, and fall and aspiration precaution reinforced. Dr. Membreno was notified regarding abnormal lab including uptrend of WBC and positive culture from old PICC line tip. Dr. Prince was notified regarding abnormal lab. Will follow up the lab and order. Will closely monitor the patient. Will continue plan of care.
--- NOTE | 2019-11-19 07:43 | Pulmonology Progress Note ---
Subjective ROS Limited/Unobtainable: No Constitutional: Reports: other - trach/vent ; Denies: fever Gastrointestinal/Abdominal: Denies: nausea, vomiting, diarrhea Psychiatric: Reports: other - NA Skin: Denies: rash Musculoskeletal: Denies: pain Allergies: Coded Allergies: PENICILLINS (Verified Allergy, Unknown, 11/01/19) VANCOMYCIN (Verified Allergy, Unknown, 11/01/19) Uncoded Allergies: PENICI (Allergy, Unknown, 11/01/19) All Systems: reviewed and negative except above Subjective no signs of resp distress on current vent settings leukocytosis up to 102.3 no fevers for 48hrs PICC exchanged 11/15 s/p EGD , removal of G tube 10/07 on TPN since 11/08 s/p 1 u PRNC and 1 u plateletpheresis 11/14 -> 11/18 PLT 41, Hgb 8.4 Objective Last 24 Hour Vital Signs Date Time Temp Pulse Resp B/P (MAP) Pulse Ox O2 Delivery O2 Flow Rate FiO2 11/19/19 04:00 Mechanical Ventilator 11/19/19 04:00 97.9 106 22 109/73 (85) 100 11/19/19 04:00 40 11/19/19 03:52 108 11/19/19 03:35 104 20 40 11/19/19 00:00 Mechanical Ventilator 11/19/19 00:00 98.4 107 22 119/62 (81) 100 11/19/19 00:00 40 11/18/19 23:50 107 22 40 11/18/19 23:44 108 11/18/19 22:13 99.3 11/18/19 20:00 40 11/18/19 20:00 Mechanical Ventilator 11/18/19 20:00 99.0 110 24 120/60 (80) 100 11/18/19 20:00 113 11/18/19 19:18 111 25 40 11/18/19 16:00 109 11/18/19 16:00 40 11/18/19 16:00 98.2 109 22 110/60 (77) 100 11/18/19 16:00 Mechanical Ventilator 11/18/19 14:46 109 22 40 11/18/19 12:00 98.4 112 22 121/62 (81) 100 11/18/19 12:00 40 11/18/19 12:00 Mechanical Ventilator 11/18/19 11:47 111 11/18/19 10:52 112 25 40 11/18/19 08:00 Mechanical Ventilator 11/18/19 08:00 40 11/18/19 08:00 98.1 110 24 124/62 (82) 100 11/18/19 07:48 110 Intake and Output 11/18/19 11/19/19 19:00 07:00 Intake Total 818 ml 1544 ml Output Total 950 ml 1100 ml Balance -132 ml 444 ml IV Total 818 ml 1544 ml Output Urine Total 950 ml 1100 ml Objective General Appearance: no apparent distress, bedridden, vent dependent chronically ill appearing female Lines, tubes and drains: peripheral HEENT: normocephalic, atraumatic, anicteric, status post trach: Shiley #6, secretions small amount, thick consistency, white color , Vent AC 400-40%-20 PEEP 5 Respiratory/Chest: no respiratory distress, few scattered rhonchi Cardiovascular/Chest: regular rhythm, LUE PICC intact Abdomen: non tender, soft, distended, dressing over old G tube site , saturating frequently, currently just changed, dry Extremities: no edema, spastic LE Skin Exam: warm/dry, multiple DTI POA ( sacral, ankle foot, elbow) Neurologic: abnormal gait : bedridden, not responsive Musculoskeletal: atrophy - BLE Microbiology Date/Time Source Procedure Growth Status 11/16/19 16:00 Arm Right Catheter Tip Culture - Final K.pneumoniae Carbapenem Resist Complete Laboratory Tests 11/18/19 11:53: POC Whole Blood Glucose 163H 11/18/19 16:23: POC Whole Blood Glucose 115H 11/18/19 23:53: POC Whole Blood Glucose [Pending] 11/19/19 05:12: POC Whole Blood Glucose 102 11/19/19 05:20: White Blood Count 102.3*H, Red Blood Count 3.01L, Hemoglobin 8.4L, Hematocrit 27.9L, Mean Corpuscular Volume 92, Mean Corpuscular Hemoglobin 28.0, Mean Corpuscular Hemoglobin Concent 30.3L, Red Cell Distribution Width 15.3H, Platelet Count 41L, Mean Platelet Volume 13.2H, Neutrophils (%) (Auto) , Lymphocytes (%) (Auto) , Monocytes (%) (Auto) , Eosinophils (%) (Auto) , Basophils (%) (Auto) , Neutrophils % (Manual) [Pending], Lymphocytes % (Manual) [Pending], Platelet Estimate [Pending], Platelet Morphology [Pending], Sodium Level 140, Potassium Level 4.1, Chloride Level 107, Carbon Dioxide Level 28, Anion Gap 5, Blood Urea Nitrogen 23H, Creatinine 0.7, Estimat Glomerular Filtration Rate > 60, Glucose Level 126H, Calcium Level 7.7L, Total Bilirubin 0.5, Aspartate Amino Transf (AST/SGOT) 41H, Alanine Aminotransferase (ALT/SGPT) 13, Alkaline Phosphatase 118H, Total Protein 5.3L, Albumin 1.5L, Globulin 3.8, Albumin/Globulin Ratio 0.4L Current Medications Medications (Trade) Dose Ordered Sig/Inna Route PRN Reason Start Time Stop Time Status Last Admin Dose Admin Acetaminophen (Tylenol) 650 mg Q4H PRN GT fever 100.4, mild pain 11/10/19 10:00 12/01/19 23:14 Acetaminophen (Tylenol) 650 mg Q4H PRN RECTAL Temp >100.5 11/08/19 21:30 12/08/19 21:29 11/18/19 21:43 Albuterol/ Ipratropium (Albuterol/ Ipratropium) 3 ml Q4H PRN HHN Shortness of Breath 11/15/19 09:45 11/20/19 09:44 Ascorbic Acid (Vitamin C) 500 mg DAILY GT 11/02/19 09:00 12/02/19 08:59 11/08/19 08:42 Bisacodyl (Dulcolax) 10 mg ONCE RECTAL 11/19/19 07:15 11/19/19 09:00 Carbidopa/Levodopa (Sinemet 25/100) 2 tab QID GT 11/02/19 09:00 12/02/19 08:59 11/08/19 08:42 Chlorhexidine Gluconate (Josefa-Hex 2%) 1 applic DAILY@2000 TOPIC 11/15/19 20:00 02/13/20 19:59 11/17/19 20:25 Daptomycin 500 mg/ Sodium Chloride 50 ml @ 100 mls/hr Q24H IV 11/14/19 16:00 11/21/19 15:59 11/18/19 16:23 Dextrose 1,000 ml @ 0 mls/hr Q24H PRN IV PN interrupted or unavailable 11/09/19 20:00 12/09/19 19:59 Dextrose (Dextrose 50%) 25 ml Q30M PRN IV Hypoglycemia 11/09/19 20:00 02/07/20 19:59 Dextrose (Dextrose 50%) 50 ml Q30M PRN IV Hypoglycemia 11/09/19 20:00 02/07/20 19:59 Docusate Sodium (Colace) 100 mg DAILY GT 11/02/19 09:00 12/02/19 08:59 11/08/19 08:41 Entacapone (Comtan) 400 mg THREE TIMES A DAY ORAL 11/10/19 13:00 12/02/19 17:59 Fat Emulsion Intravenous 192 ml/Amino Acids/ Electrolytes/ Dextrose 1,872 ml @ 78 mls/hr Q24H IV 11/11/19 20:00 12/11/19 19:59 11/18/19 19:40 Insulin Aspart (NovoLOG) Q6HR SUBQ 11/06/19 12:00 02/04/20 11:59 11/18/19 12:45 Levofloxacin 50 ml @ 50 mls/hr Q24H IVPB 11/13/19 09:00 11/29/19 23:59 11/18/19 09:18 Metoclopramide HCl (Reglan) 5 mg Q6H PRN IVP nausea or vomiting 11/01/19 23:15 12/01/19 23:14 11/02/19 12:51 Micafungin Sodium 100 mg/Sodium Chloride 110 ml @ 110 mls/hr Q24H IVPB 11/13/19 21:00 11/23/19 23:59 11/18/19 20:53 Mineral Oil (Fleet's Mineral Oil Enema) 133 ml ONCE RECTAL 11/19/19 07:15 11/19/19 09:00 Multivitamins (Multivitamins W/ Minerals 15ml Liquid) 15 ml DAILY GT 11/02/19 09:00 12/02/19 08:59 11/08/19 08:42 Ondansetron HCl (Zofran) 4 mg Q4H PRN IVP Nausea & Vomiting 11/01/19 23:15 12/01/19 23:14 Pantoprazole (Protonix) 40 mg DAILY IVP 11/05/19 09:00 12/05/19 08:59 11/18/19 09:11 Polyethylene Glycol (Miralax) 17 gm DAILY PRN GT Constipation 11/02/19 08:30 12/02/19 07:59 Polymyxin B Sulfate 324764 units/Dextrose 550 ml @ 550 mls/hr EVERY 12 HOURS IV 11/16/19 09:00 11/23/19 08:59 11/18/19 20:02 Quetiapine Fumarate (SEROqueL) 50 mg QHS GT 11/02/19 21:00 12/17/19 20:59 11/07/19 21:36 Sennosides (Senokot) 8.6 mg QHS GT 11/02/19 21:00 12/02/19 20:59 11/07/19 21:32 Zinc Oxide (Desitin) 1 applic FOUR TIMES A DAY TOPIC 11/04/19 14:00 12/04/19 13:59 11/18/19 20:02 Assessment/Plan Assessment/Plan ASSESSMENT Chronic respiratory failure ventilator dependent with tracheostomy status Sepsis Bacteremia PICC infection with Klebsiella CRE Persistent fevers Hypotension, possible early shock - resolved Pneumonia, possible aspiration UTI with Klebsiella pneumonia CRE Hypotension, possible early shock - resolved 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), s/p 2 u PRBC Pancytopenia Leukocytosis Dysphagia, feeding by G-tube Advanced Parkinson's disease Severe protein calorie malnutrition Malfunctioning G tube ( inadvertently was removed), s/p EGD and removal of G tube Multiple DTI , POA Ovarian mass consistent with neoplasm AML Suspected COVID-19 infection -ruled out Severe protein calorie malnutrition Functional quadriplegia E/lyte abnormalities PLAN OF CARE NAZARIO ( was for a short time in ICU, responded to IVC boluses and albumin boluses) ventilator support, trach care, pulm toilet ABG stable on current settings, keep as is and optimize as needed CXR 11/06 unchanged, SCX 11/05 Providencia , Klebsiella CRE, Pseudomonas CXR 11/09 no change: Tracheostomy remains in place. Basilar infiltrates not significantly changed. Small effusions unchanged CXR 11/12 -Persistent low lung volumes, may be related to shallow inspiration. Bilateral patchy interstitial and air space opacities, most prominent in the left lung base. Stable to mildly worsened compared to the prior exam and is concerning for pneumonia versus pulmonary edema. Possible small left pleural effusion. CXR 11/14 - Slight worsening of bilateral alveolar densities which could be worsening infiltrates and/or edema repeat CXR 11/17 no significant changes from before BCX 10/31 05/28 Staph haemolyticus, likely contaminant BCX 11/01 05/28 MRSA BCX 11/03 NGTD UCX Klebsiella CRE BCX 11/05 ACB MDR, Staph BCX 11/06 NGTD BCX 11/10 GNR UCX 11/10 + yeast BCX 11/13 NGTD abx as per ID recs -Dapto, Poly and Meropenem, Levaquin and Micafungin leuk again with trend up , no fevers for the last 48 hrs RUE PICC was dc with tip cx and LUE PICC inserted by IR 11/15 PICC tip CX + Klebsiella CRE -CT A/P 11/09 BILATERAL SMALL PLEURAL EFFUSIONS AND DEPENDENT INFILTRATES. HUGE SEPTATED CYSTIC MASS ARISING FROM THE PELVIS EXTENDING INTO THE ABDOMEN MOST LIKELY OF OVARIAN ORIGIN. SMALL AMOUNT OF FREE FLUID ADJACENT TO THE HEPATIC AND SPLENIC EDGE WELL IN THE PELVIS. LEFT RENAL STONE. POSSIBLE SLUDGE OR NONCALCIFIED STONES LAYERING IN THE GALLBLADDER. LEFT LOWER QUADRANT STOMA. SEVERE DEGENERATIVE CHANGES AND DEXTROSCOLIOSIS OF THE SPINE. ANASARCA. ECHO with pEF 55%, no discrete vegetation seen COVID 11/01 NGT, Venous Duplex BLE NGT, apply SCD, monitor HH with goal to keep Hgb >7, trend PLT severe pancytopenia likely 2 to AML s/p 1 unit PLT-pheresis and 1 u PRBC leukocytosis 2 to sepsis and partially probably due to malignancy/AML and ovarian Ca gentle IVF replace lytes as needed, monitor volumes asp precautions GT was inadvertently removed s/p replacement 11/03 by GI started TF still leaking plan replacement with GJ tube but cancelled due to leukocytosis s/p EGD 11/07, old G tube removed, unable to place a new one due to a large site , currently on TPN strict aspir precautions protein supplement as per RD recs continue SNF meds as per primary supportive care bowel regimen wound care as per surgeon recs overall prognosis grave, given sepsis and multiple comorbidities, with superimposed AML and ovarian mass, DNR/DNI status family declined transfer to [place] at this time case discussed and evaluated by supervising physician Martha Chandler NP Nov 19, 2019 07:43
[2019-11-19 08:00] VITALS: BP 138/76
[2019-11-19] MEDS: Docusate 100mg/10ml Liq GT SCH (08:56)
[2019-11-19] MEDS: Polymyxin B Sulfate 500,000 UNITS in D5W 500ml 550 ML IV SCH ×2 (08:57→20:15)
[2019-11-19] MEDS: Pantoprazole Inj IVP SCH (08:57)
[2019-11-19] MEDS: Levodopa/Carbidopa 25/100 tab GT SCH ×4 (08:57→20:25)
[2019-11-19] MEDS: Ascorbic Acid 500mg tab GT SCH (08:57)
[2019-11-19] MEDS: Multivitamins W/Minerals 15 ML UDC GT SCH (08:57)
[2019-11-19] MEDS: Entacapone 200mg tab ORAL SCH ×3 (08:58→17:41)
[2019-11-19] MEDS: Desitin Rash Paste TOPIC SCH ×4 (08:58→20:07)
--- NOTE | 2019-11-19 09:02 | Surgery Progress Note ---
Surgery Progress Note Subjective Symptoms: worse Additional Comments ill appearing labs worse on support Objective Last 24 Hour Vital Signs Date Time Temp Pulse Resp B/P (MAP) Pulse Ox O2 Delivery O2 Flow Rate FiO2 11/19/19 07:35 105 20 40 11/19/19 04:00 Mechanical Ventilator 11/19/19 04:00 97.9 106 22 109/73 (85) 100 11/19/19 04:00 40 11/19/19 03:52 108 11/19/19 03:35 104 20 40 11/19/19 00:00 Mechanical Ventilator 11/19/19 00:00 98.4 107 22 119/62 (81) 100 11/19/19 00:00 40 11/18/19 23:50 107 22 40 11/18/19 23:44 108 11/18/19 22:13 99.3 11/18/19 20:00 40 11/18/19 20:00 Mechanical Ventilator 11/18/19 20:00 99.0 110 24 120/60 (80) 100 11/18/19 20:00 113 11/18/19 19:18 111 25 40 11/18/19 16:00 109 11/18/19 16:00 40 11/18/19 16:00 98.2 109 22 110/60 (77) 100 11/18/19 16:00 Mechanical Ventilator 11/18/19 14:46 109 22 40 11/18/19 12:00 98.4 112 22 121/62 (81) 100 11/18/19 12:00 40 11/18/19 12:00 Mechanical Ventilator 11/18/19 11:47 111 11/18/19 10:52 112 25 40 I&O Intake and Output 11/18/19 11/19/19 19:00 07:00 Intake Total 818 ml 1544 ml Output Total 950 ml 1100 ml Balance -132 ml 444 ml IV Total 818 ml 1544 ml Output Urine Total 950 ml 1100 ml Dressing: other Wound: other Drains: other Cardiovascular: RSR Respiratory: decreased breath sounds Abdomen: soft, non-distended, decreased bowel sounds Extremities: edema, no cyanosis Laboratory Tests Test 11/18/19 11:53 11/18/19 16:23 11/18/19 23:53 11/19/19 05:12 POC Whole Blood Glucose 163 MG/DL (74-106) H 115 MG/DL (74-106) H Pending 102 MG/DL (74-106) Test 11/19/19 05:20 White Blood Count 102.3 K/UL (4.8-10.8) *H Red Blood Count 3.01 M/UL (4.20-5.40) L Hemoglobin 8.4 G/DL (12.0-16.0) L Hematocrit 27.9 % (37.0-47.0) L Mean Corpuscular Volume 92 FL (80-99) Mean Corpuscular Hemoglobin 28.0 PG (27.0-31.0) Mean Corpuscular Hemoglobin Concent 30.3 G/DL (32.0-36.0) L Red Cell Distribution Width 15.3 % (11.6-14.8) H Platelet Count 41 K/UL (150-450) L Mean Platelet Volume 13.2 FL (6.5-10.1) H Neutrophils (%) (Auto) % (45.0-75.0) Lymphocytes (%) (Auto) % (20.0-45.0) Monocytes (%) (Auto) % (1.0-10.0) Eosinophils (%) (Auto) % (0.0-3.0) Basophils (%) (Auto) % (0.0-2.0) Neutrophils % (Manual) Pending Lymphocytes % (Manual) Pending Platelet Estimate Pending Platelet Morphology Pending Sodium Level 140 MMOL/L (136-145) Potassium Level 4.1 MMOL/L (3.5-5.1) Chloride Level 107 MMOL/L (98-107) Carbon Dioxide Level 28 MMOL/L (21-32) Anion Gap 5 mmol/L (5-15) Blood Urea Nitrogen 23 mg/dL (7-18) H Creatinine 0.7 MG/DL (0.55-1.30) Estimat Glomerular Filtration Rate > 60 mL/min (>60) Glucose Level 126 MG/DL (74-106) H Calcium Level 7.7 MG/DL (8.5-10.1) L Total Bilirubin 0.5 MG/DL (0.2-1.0) Aspartate Amino Transf (AST/SGOT) 41 U/L (15-37) H Alanine Aminotransferase (ALT/SGPT) 13 U/L (12-78) Alkaline Phosphatase 118 U/L (46-116) H Total Protein 5.3 G/DL (6.4-8.2) L Albumin 1.5 G/DL (3.4-5.0) L Globulin 3.8 g/dL Albumin/Globulin Ratio 0.4 (1.0-2.7) L Plan Problems: (1) Decubitus skin ulcer Assessment & Plan: Pt presented on admission with multiple Pressure Injuries, and contractures. Large Soft Mass noted to lateral R chest ,just inferior to Breast.Soft mass that uis violaceous and denuded. Unstageable Pressure injury R thoracic. Wound presents as partially opened DTPI( L)6cm x (W)8.5cm. 95% Soft eschar flap,5% dee. Marginal erythema along borders In addition scattered linear and purple area periwound. Full thickness stage 4 Sacral Pressure Injury(L)9.3cm x (W)8.7cm. Base of wound is 95% necrotic,but bone is palpable.Mild odor noted. No exudate noted. Non-blanching erythema periwound. Unstageable Pressure Injury R trochanter(L)3.5cm x (W)4.2cm. Base of wound is 90 % soft eschar, 10% pink epithelial. Edges adherent to base of wound .No erythema induration or fluctuance periwound. Unstageable Pressure injury R Ischium(L)3.5cm x (W)2.5cm. Dry eschar at base of wound, edges are adherent with surrounding pink epithelial. No erythema or induration periwound. DTPI L trochanter(L)4cm x (W)1cm. Stable dry eschar L Hallux(L)1.6cm x (W)2cm.NO erythema fluctuance or induration periwound. L 1st metatarsal TMA noted. Stable dry eschar distal/lateral L foot (L)1.5cm x (W)3cm. No erythema, induration or fluctuance periwound. DTPI noted to plantar L foot.(L)0.9cm x (W)0.9cm. Base of wound is fluctuant, purple with maroon borders. Unstageable Pressure injury L lateral Malleolus. Stable dry eschar noted.No erythema or induration periwound. L heel is boggy with non-blanching erythema. Unstageable Pressure injury R Hallux and plantar aspect(L)3.5cm x (W)3.4cm. Soft eschar at base of wound with marginal erythema along borders. R heel is boggy with Non-Blanching erythema. Unstageable Presure injury distal/Lateral R foot . Stable dry eschar noted . No erythema of fluctuance periwound. Tx.Plan: Cleanse Sacral Wound with Saline. Loosely pack with Therahoney impregnated Kerlix.Applpy Moisture Barrier Paste periwound. Cover with Optifoam drsg. Change Daily and prn. Cleanse Soft Mass R chest with Saline. Cover with Optifoam drsg. Change Daily and prn. Cleanse wounds R trochanter, R Ischium with Saline. Apply Moisture Barrier Paste.Cover with Optifoam drsg. Change every 3 days and prn. Apply Moisture Barrier to L trochanter. Cvoer with Optifoam drsg. Change every 3 days and prn. Apply Betadine to wounds R and L foot. Cover each wound with Optifoam drsg. Changee very 3 days and prn. Apply Cavilon Skin Barrier to both heels. Cover each heel with Optifoam drsg. Change every 7 days and prn. APM/ANA Mattress overlay. turn q2h nutritional optimization (2) Malnutrition Assessment & Plan: pending g tube DAILY ESTIMATED NEEDS: Needs based on Critical care, wounds, 64kg 22-28 kcals/kg 0970-3242 total kcals 1.25-2 g protein/kg 80-128 g total protein 25-30 mL/kg 0990-7705 total fluid mLs NUTRITION DIAGNOSIS: Swallowing difficulty r/t respiratory status as evidenced by pt is trach and peg dep, currently NPO, on TPN. CURRENT TF:NPO, on TPN ENTERAL NUTRITION RECOMMENDATIONS: VITAL AF 1.2 @ 55ml/hr x24 hrs to provide 1320ml, 1584 kcal, 99g pro, 1071ml free H2O - Post PEJ placement, initiate Vital AF 1.2 @ 25ml/hr x 6hrs, advance 10ml q 4- 6 hrs as tolerated to goal. - Flush per - WYATT over 30 degrees PARENTERAL NUTRITION RECOMMENDATIONS: D/AA Rate: 70 IL Rate: 8 Total Rate: 78 Volume: 1872 % Dextrose: 18 % AA: 5.5 Energy (kcals/kg): 1781 Protein (g/kg protein): 92 Nonprotein KCALS: 1412 GIR (mg CHO/kg/min): 3.3 % Fat KCALS: 22 NCP: N Ratio: 96:1 TPN Comment: - Maintain current TPN: -> D18%, AA 5.5% @70ml/hr w/ 20%IL @8ml/hr - all 3:1 - TF at goal meets 100% est needs, provides 28 kcal/kg and 1.4g/kg pro. - GIR<5 - IL <30% ADDITIONAL RECOMMENDATIONS: 1) Per SNF: 65 inches (5'5"); 141 lbs (64.1kg) 2) Wound care: add MEIR BID via GT w/ TF order 3) Monitor lytes, BG, and LFT's on TPN - check phos and mag (not checked since TPN initiation) (3) Anemia Assessment & Plan: transfused trend labs no active bleeding stool study GI eval (4) UTI (urinary tract infection) (5) Tracheostomy dependence Assessment & Plan: Findings: The left hemidiaphragm is elevated. Atelectatic changes are present in the left lung base. There is minimal right basilar atelectasis. No definite infiltrates. There is a tracheostomy. Impression: Elevated left hemidiaphragm with considerable left basilar atelectasis. Less extensive right basilar atelectasis. Inspiration is suboptimal. Interim development of opacity of the left mid and lower lung. The left hemidiaphragm is obscured. Right lung is probably clear , although there is crowding of bronchovascular lung volumes. Tracheostomy remains. Impression: Since 11/01/2019, interim development of left mid and lower lung infiltrates versus edema and possibly pleural fluid Juan Houser Nov 19, 2019 09:02
--- NOTE | 2019-11-19 09:30 | NUR ---
NURSE NOTES: Morning medications administered as ordered. Unable to administer GT route medication since there is no GT yet and planning for insertion on coming Thursday per Dr. Reeves's noted. Vital signs stable. Morning assessment completed. Will closely monitor the patient. Will continue plan of care.
[2019-11-19 12:00] VITALS: BP 135/59
[2019-11-19] MEDS ORDERED: [UNRECOGNIZED DRUG - OTHER] IVPB SCH ×2 (12:00)
--- NOTE | 2019-11-19 12:00 | NUR ---
NURSE NOTES: Dr. Membreno changed antibiotics based on the culture result. Will administer as ordered. Will closely monitor the patient. Will continue plan of care.
--- NOTE | 2019-11-19 14:00 | NUR ---
NURSE NOTES: The patient's vital signs are stable. No fever noted at this time. No BM noted yet. Will closely monitor the patient. Will continue plan of care.
[2019-11-19 16:00] VITALS: BP 144/59
--- NOTE | 2019-11-19 16:00 | NUR ---
NURSE NOTES: The patient is stable without acute distress or shortness of breath. Stable vital signs noted. Will continue plan of care.
[2019-11-19] MEDS: DAPTOmycin 500 MG in NS 50 ML IV SCH (16:10)
--- NOTE | 2019-11-19 17:06 | Infectious Diseases Prog Note ---
Assessment/Plan Assessment/Plan ASSESSMENT AND PLAN: 1. mrsa bacteremia, acinetobacter bacteremia, client services director bacteremia, klebsiella uti ( cre) sepsis, shock, fevers, leukocytosis, sacral wound infection, AML, + blasts klebsiella(cre) pna/providencia(esbl) pna/pseudomonas pna fungal uti, ? fungemia, TPN ? line infection - picc placed 11/02/19, repeat blood cultures show acinetobacter line changed - cath tip with klebsiella - CRE - sensitive to tygacil - daptomycin (11/01), polymyxin (11/04), tyacil started (11/18), finish levofloxacin - discontinue micafungin - picc line changed 11/16/19 - surveillance blood cultures neg so far - TTE - no vegetations identified - monitor labs and chest x-ray - wound management per surgery - leukocytosis maybe secondary to AML blast crises/flare - case communicated with Dr. Doherty - d/w abx stewardship pharmacy and change in abx - icu care 2. Trach, vent respiratory failure. 3. Dysphagia, G-tube. 4. Anemia. 5. Thrombocytopenia - severe 6. Leukocytosis. 7. Malnutrition. 8. Ovarian mass with neoplasm. 9. Parkinson's. 10. Dementia. 11. Skin care per Surgery and protocol. 12. Allergies to penicillin, vancomycin. 13. Social history is negative. 14. Family history is noncontributory. 15. MAR was noted. 16. Case was discussed with RN. 17. Continue treatment per primary consultants. 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 Subjective Constitutional: Reports: fatigue, other - + vent, poorly responsive ; Denies: fever HEENT: Reports: congestion Respiratory: Reports: shortness of breath Cardiovascular: Reports: other - no pressors Gastrointestinal/Abdominal: Denies: nausea, vomiting Genitourinary: Reports: other - + dong Neurologic: Reports: other - lethargic, poorly responsive Psychiatric: Reports: depression, other - NA Skin: Denies: rash Hematologic: Denies: bleeding Musculoskeletal: Reports: other - NA Allergies: Coded Allergies: PENICILLINS (Verified Allergy, Unknown, 11/01/19) VANCOMYCIN (Verified Allergy, Unknown, 11/01/19) Uncoded Allergies: PENICI (Allergy, Unknown, 11/01/19) Objective Last 24 Hour Vital Signs Date Time Temp Pulse Resp B/P (MAP) Pulse Ox O2 Delivery O2 Flow Rate FiO2 11/19/19 15:22 114 24 40 11/19/19 12:00 105 11/19/19 12:00 98.0 107 22 135/59 (84) 100 11/19/19 12:00 Mechanical Ventilator 11/19/19 12:00 40 11/19/19 11:06 107 21 40 11/19/19 08:00 106 11/19/19 08:00 97.9 108 22 138/76 (96) 100 11/19/19 08:00 Mechanical Ventilator 11/19/19 08:00 40 11/19/19 07:35 105 20 40 11/19/19 04:00 Mechanical Ventilator 11/19/19 04:00 97.9 106 22 109/73 (85) 100 11/19/19 04:00 40 11/19/19 03:52 108 11/19/19 03:35 104 20 40 11/19/19 00:00 Mechanical Ventilator 11/19/19 00:00 98.4 107 22 119/62 (81) 100 11/19/19 00:00 40 11/18/19 23:50 107 22 40 11/18/19 23:44 108 11/18/19 22:13 99.3 11/18/19 20:00 40 11/18/19 20:00 Mechanical Ventilator 11/18/19 20:00 99.0 110 24 120/60 (80) 100 11/18/19 20:00 113 11/18/19 19:18 111 25 40 Height (Feet): 5 Height (Inches): 3.00 Weight (Pounds): 158 General Appearance: other - on vent, poorly responsive, no pressors, trach/vent HEENT: normocephalic, atraumatic, mucous membranes moist Respiratory/Chest: crackles/rales, rhonchi - bilaterally Cardiovascular: normal rate, regular rhythm, no gallop/murmur, no JVD Abdomen: normal bowel sounds, soft, non tender, no organomegaly, non distended Genitourinary: other - + dong - urine slt cloudy Extremities: no cyanosis Skin: no rash Neurologic/Psychiatric: other - lethargic, poorly responsive Lymphatic: no neck adenopathy Musculoskeletal: no effusion Chest x-ray - 11/05/19 - IMPRESSION: 1. Interval placement of right PICC line tip to the mid SVC. 2. Hypoventilatory lungs. Bibasilar atelectasis/consolidations, similar to prior study. 3. Probable bilateral pleural effusions. Chest x-ray - 11/07/19- Procedure: XRAY Chest 1v Procedure: XRAY Chest 1v Reason for study: Shortness of breath. Comparison films: 11/05/2019. FINDINGS: Tracheostomy and right PICC line remain in place. There is limited inspiration with bibasilar densities unchanged. Cardiac and mediastinal silhouette are within normal limits. No large effusion seen The bony thorax appear unremarkable. IMPRESSION: NO SIGNIFICANT CHANGE COMPARED TO PREVIOUS EXAM. CT abdomen and pelvis: IMPRESSION: BILATERAL SMALL PLEURAL EFFUSIONS AND DEPENDENT INFILTRATES. HUGE SEPTATED CYSTIC MASS ARISING FROM THE PELVIS EXTENDING INTO THE ABDOMEN MOST LIKELY OF OVARIAN ORIGIN. SMALL AMOUNT OF FREE FLUID ADJACENT TO THE HEPATIC AND SPLENIC EDGE WELL IN THE PELVIS. LEFT RENAL STONE. POSSIBLE SLUDGE OR NONCALCIFIED STONES LAYERING IN THE GALLBLADDER. LEFT LOWER QUADRANT STOMA. SEVERE DEGENERATIVE CHANGES AND DEXTROSCOLIOSIS OF THE SPINE. ANASARCA. Abdominal US: IMPRESSION: 1. Sludge and possible small stones in the gallbladder. No gallbladder wall thickening or pericholecystic fluid. 2. Ascites. 3. Small right pleural effusion. Chest x-ray - 11/10/19 - Procedure: XRAY Chest 1v Procedure: XRAY Chest 1v Reason for study: Reason For Exam: SOB Comparison films: 11/07/2019. FINDINGS: Tracheostomy remains in place. Basilar infiltrates not significantly changed. Small effusions unchanged. Cardiac silhouette stable. The bony thorax appear unremarkable. IMPRESSION: NO SIGNIFICANT CHANGE COMPARED TO PREVIOUS EXAM Chest x-ray - 11/18/19 - Procedure: XRAY Chest 1v Procedure: XRAY Chest 1v Reason for study: Reason For Exam: SOB Comparison films: 11/15/2019. FINDINGS: Tracheostomy remains in place. Bilateral congestion and edema are unchanged. Cardiac silhouette is obscured. Effusions unchanged. The bony thorax appear unremarkable. IMPRESSION: NO SIGNIFICANT CHANGE COMPARED TO PREVIOUS EXAM. Microbiology Date/Time Source Procedure Growth Status 11/14/19 14:05 Blood Blood Culture - Preliminary NO GROWTH AFTER 72 HOURS Resulted 11/06/19 10:04 Sputum Induced Gram Stain - Final Complete 11/06/19 10:04 Sputum Culture - Final Providencia Stuartii K.pneumoniae Carbapenem Resist Pseudomonas Aeruginosa Complete 11/13/19 04:00 Indwelling Cath Urine Culture - Final Aundrea Tropicalis Complete 11/16/19 16:00 Arm Right Catheter Tip Culture - Final K.pneumoniae Carbapenem Resist Complete Laboratory Tests Test 11/18/19 23:53 11/19/19 05:12 11/19/19 05:20 11/19/19 12:14 POC Whole Blood Glucose Pending 102 MG/DL (74-106) Pending White Blood Count 102.3 K/UL (4.8-10.8) *H Red Blood Count 3.01 M/UL (4.20-5.40) L Hemoglobin 8.4 G/DL (12.0-16.0) L Hematocrit 27.9 % (37.0-47.0) L Mean Corpuscular Volume 92 FL (80-99) Mean Corpuscular Hemoglobin 28.0 PG (27.0-31.0) Mean Corpuscular Hemoglobin Concent 30.3 G/DL (32.0-36.0) L Red Cell Distribution Width 15.3 % (11.6-14.8) H Platelet Count 41 K/UL (150-450) L Mean Platelet Volume 13.2 FL (6.5-10.1) H Neutrophils (%) (Auto) % (45.0-75.0) Lymphocytes (%) (Auto) % (20.0-45.0) Monocytes (%) (Auto) % (1.0-10.0) Eosinophils (%) (Auto) % (0.0-3.0) Basophils (%) (Auto) % (0.0-2.0) Differential Total Cells Counted 100 Neutrophils % (Manual) 10 % (45-75) L Lymphocytes % (Manual) 7 % (20-45) L Monocytes % (Manual) 15 % (1-10) H Eosinophils % (Manual) 2 % (0-3) Basophils % (Manual) 0 % (0-2) Blast Cells % 64 % (0-0) *H Band Neutrophils 2 % (0-8) Nucleated Red Blood Cells 1 /100 WBC Platelet Estimate Decreased L Platelet Morphology Normal Polychromasia 1+ Hypochromasia 1+ Anisocytosis 1+ Sodium Level 140 MMOL/L (136-145) Potassium Level 4.1 MMOL/L (3.5-5.1) Chloride Level 107 MMOL/L (98-107) Carbon Dioxide Level 28 MMOL/L (21-32) Anion Gap 5 mmol/L (5-15) Blood Urea Nitrogen 23 mg/dL (7-18) H Creatinine 0.7 MG/DL (0.55-1.30) Estimat Glomerular Filtration Rate > 60 mL/min (>60) Glucose Level 126 MG/DL (74-106) H Calcium Level 7.7 MG/DL (8.5-10.1) L Total Bilirubin 0.5 MG/DL (0.2-1.0) Aspartate Amino Transf (AST/SGOT) 41 U/L (15-37) H Alanine Aminotransferase (ALT/SGPT) 13 U/L (12-78) Alkaline Phosphatase 118 U/L (46-116) H Total Protein 5.3 G/DL (6.4-8.2) L Albumin 1.5 G/DL (3.4-5.0) L Globulin 3.8 g/dL Albumin/Globulin Ratio 0.4 (1.0-2.7) L Current Medications Medications (Trade) Dose Ordered Sig/Inna Route PRN Reason Start Time Stop Time Status Last Admin Dose Admin Acetaminophen (Tylenol) 650 mg Q4H PRN GT fever 100.4, mild pain 11/10/19 10:00 12/01/19 23:14 Acetaminophen (Tylenol) 650 mg Q4H PRN RECTAL Temp >100.5 11/08/19 21:30 12/08/19 21:29 11/18/19 21:43 Albuterol/ Ipratropium (Albuterol/ Ipratropium) 3 ml Q4H PRN HHN Shortness of Breath 11/15/19 09:45 11/20/19 09:44 Ascorbic Acid (Vitamin C) 500 mg DAILY GT 11/02/19 09:00 12/02/19 08:59 11/08/19 08:42 Carbidopa/Levodopa (Sinemet 25/100) 2 tab QID GT 11/02/19 09:00 12/02/19 08:59 11/08/19 08:42 Chlorhexidine Gluconate (Josefa-Hex 2%) 1 applic DAILY@1999 TOPIC 11/15/19 20:00 02/13/20 19:59 11/17/19 20:25 Daptomycin 500 mg/ Sodium Chloride 50 ml @ 100 mls/hr Q24H IV 11/14/19 16:00 11/21/19 15:59 11/19/19 16:10 Dextrose 1,000 ml @ 0 mls/hr Q24H PRN IV PN interrupted or unavailable 11/09/19 20:00 12/09/19 19:59 Dextrose (Dextrose 50%) 25 ml Q30M PRN IV Hypoglycemia 11/09/19 20:00 02/07/20 19:59 Dextrose (Dextrose 50%) 50 ml Q30M PRN IV Hypoglycemia 11/09/19 20:00 02/07/20 19:59 Docusate Sodium (Colace) 100 mg DAILY GT 11/02/19 09:00 12/02/19 08:59 11/08/19 08:41 Entacapone (Comtan) 400 mg THREE TIMES A DAY ORAL 11/10/19 13:00 12/02/19 17:59 Fat Emulsion Intravenous 192 ml/Amino Acids/ Electrolytes/ Dextrose 1,872 ml @ 78 mls/hr Q24H IV 11/11/19 20:00 12/11/19 19:59 11/18/19 19:40 Insulin Aspart (NovoLOG) Q6HR SUBQ 11/06/19 12:00 02/04/20 11:59 11/18/19 12:45 Metoclopramide HCl (Reglan) 5 mg Q6H PRN IVP nausea or vomiting 11/01/19 23:15 12/01/19 23:14 11/02/19 12:51 Multivitamins (Multivitamins W/ Minerals 15ml Liquid) 15 ml DAILY GT 11/02/19 09:00 12/02/19 08:59 11/08/19 08:42 Ondansetron HCl (Zofran) 4 mg Q4H PRN IVP Nausea & Vomiting 11/01/19 23:15 12/01/19 23:14 Pantoprazole (Protonix) 40 mg DAILY IVP 11/05/19 09:00 12/05/19 08:59 11/19/19 08:57 Polyethylene Glycol (Miralax) 17 gm DAILY PRN GT Constipation 11/02/19 08:30 12/02/19 07:59 Polymyxin B Sulfate 612992 units/Dextrose 550 ml @ 550 mls/hr EVERY 12 HOURS IV 11/16/19 09:00 11/23/19 08:59 11/19/19 08:57 Quetiapine Fumarate (SEROqueL) 50 mg QHS GT 11/02/19 21:00 12/17/19 20:59 11/07/19 21:36 Sennosides (Senokot) 8.6 mg QHS GT 11/02/19 21:00 12/02/19 20:59 11/07/19 21:32 Tigecycline 50 mg/ Sodium Chloride 110 ml @ 220 mls/hr Q12H IVPB 11/20/19 00:00 11/27/19 00:00 Zinc Oxide (Desitin) 1 applic FOUR TIMES A DAY TOPIC 11/04/19 14:00 12/04/19 13:59 11/19/19 12:20 González Yadav MD Nov 19, 2019 17:06
--- NOTE | 2019-11-19 17:20 | NUR ---
HAND-OFF: Report given to SRIKANTH Knight. The patient is stable at this time. Endorsed plan of care.
--- NOTE | 2019-11-19 19:20 | NUR ---
NURSE NOTES: Received Pt's report from SRIKANTH Knight. Pt is on bed, no S/S respiratory distress noted. Pt is on vent per following setting; AC20, Vt 450, FiO2 45%, PEEP5. Pt is on Bailey draining well noted. PICC line @ MATTIE clean, intact and patent noted TPN running 78mL/hr. Bed is at lowest position and locked. Pt is on semi-olmos. Call-light within reach. Will continue to monitor pt with plan of care. Addendum: 11/19/19 at 2144 by Vineet Key RN wrong info
--- NOTE | 2019-11-19 19:20 | NUR ---
NURSE NOTES: Received Pt's report from SRIKANTH Knight. Pt is on bed, no S/S respiratory distress noted. Pt is on vent per following setting; AC20, Vt 400, FiO2 40%, PEEP5. Pt is on Bailey draining well noted. PICC line @ MATTIE clean, intact and patent noted TPN running 78mL/hr. Bed is at lowest position and locked. Pt is on semi-olmos. Call-light within reach. Will continue to monitor pt with plan of care.
[2019-11-19 20:00] VITALS: BP 129/62
[2019-11-19] MEDS: FAT EMULSION 20% IV SCH (20:06)
[2019-11-19] MEDS: TPN IV SCH (20:06)
[2019-11-19] MEDS: Dyna-Hex 2% Top Sol 2oz TOPIC SCH (20:07)
[2019-11-19] MEDS ORDERED: NS 275ml ONE (20:16)
[2019-11-19] MEDS ORDERED: Tubing IV Secondary IV ONE (20:16)
[2019-11-19] MEDS: Sennosides 8.6mg tab GT SCH (20:24)
[2019-11-19] MEDS: [UNRECOGNIZED DRUG - OTHER] IVPB SCH ×2 (23:19)
[2019-11-20] VITALS: BP 128/66
--- NOTE | 2019-11-20 00:25 | NUR ---
NURSE NOTES: NovoLog administered 11/20/19 23:07- MATTIE BurchU BS [id number]- co signed by RN Edis. Evens. Tygacil administered at 2311 11/20/19 - paper chart filled out as computers were down.
[2019-11-20 04:00] VITALS: BP 127/63
[2019-11-20] MEDS: NovoLOG Insulin Flexpen SUBQ SCH ×3 (05:13→18:00)
--- NOTE | 2019-11-20 07:32 | NUR ---
HAND-OFF: Report given to SRIKANTH Stone. Pt is stable at this moment. Endorsed plan of care.
--- NOTE | 2019-11-20 07:44 | General Progress Note ---
Assessment/Plan Status: stable, unchanged Assessment/Plan: 1. AML. 2. Respiratory failure with vent. 3. Dysphagia with G-tube. 4. Ovarian mass. 5. Advanced Parkinson disease. 6. Anemia requiring blood transfusion in the past. 7. Dementia. 8. Pancytopenia. unable to place GJT due to very large gastrocutaneous fibula on TPN hypotension abx per ID s/p blood and plt transfusion less leakage from the old GT site pending GJT placement when leakage is less possibly this Thursday poor prognosis Subjective ROS Limited/Unobtainable: No Allergies: Coded Allergies: PENICILLINS (Verified Allergy, Unknown, 11/01/19) VANCOMYCIN (Verified Allergy, Unknown, 11/01/19) Uncoded Allergies: PENICI (Allergy, Unknown, 11/01/19) Objective Last 24 Hour Vital Signs Date Time Temp Pulse Resp B/P (MAP) Pulse Ox O2 Delivery O2 Flow Rate FiO2 11/20/19 04:00 110 11/20/19 04:00 Mechanical Ventilator 11/20/19 04:00 99.0 116 24 127/63 (84) 94 11/20/19 04:00 40 11/20/19 03:10 106 20 40 11/20/19 00:00 107 11/20/19 00:00 98.5 108 22 128/66 (86) 98 11/20/19 00:00 Mechanical Ventilator 11/19/19 23:15 111 22 40 11/19/19 20:00 Mechanical Ventilator 11/19/19 20:00 40 11/19/19 20:00 98.6 115 22 129/62 (84) 97 11/19/19 19:29 115 11/19/19 19:18 113 23 40 11/19/19 16:00 40 11/19/19 16:00 111 11/19/19 16:00 98.9 111 22 144/59 (87) 100 11/19/19 16:00 Mechanical Ventilator 11/19/19 15:22 114 24 40 11/19/19 12:00 105 11/19/19 12:00 98.0 107 22 135/59 (84) 100 11/19/19 12:00 Mechanical Ventilator 11/19/19 12:00 40 11/19/19 11:06 107 21 40 11/19/19 08:00 106 11/19/19 08:00 97.9 108 22 138/76 (96) 100 11/19/19 08:00 Mechanical Ventilator 11/19/19 08:00 40 Intake and Output 11/19/19 11/20/19 19:00 07:00 Intake Total 1014 ml 1510.2 ml Output Total 950 ml 1800 ml Balance 64 ml -289.8 ml IV Total 78 ml 1510.2 ml Other 936 ml Output Urine Total 950 ml 1800 ml Laboratory Tests 11/19/19 12:14: POC Whole Blood Glucose [Pending] Height (Feet): 5 Height (Inches): 3.00 Weight (Pounds): 158 General Appearance: lethargic EENT: normal ENT inspection Neck: supple Cardiovascular: tachycardia Respiratory/Chest: decreased breath sounds Abdomen: hypoactive bowel sounds Extremities: non-tender Negro Reeves MD Nov 20, 2019 07:44
--- NOTE | 2019-11-20 07:44 | NUR ---
NURSE NOTES: Received report from Korina/Leyda DUKE. Pt. in bed, non-verbal, obtunded. No sign of distress. On mech. vent. with setting AC20/VT400/Fi O2 at 40%/P5. No grimacing noted. PICC line at left upper arm with 2 lumen in placed patent/intact running TPN at 78cc/hr. F/C in placed patent/intact draining yellow colored urine. Bed in low position, locked. Call light within reach. Will cont. to monitor.
[2019-11-20 08:00] VITALS: BP 142/76
--- NOTE | 2019-11-20 08:00 | Pulmonology Progress Note ---
Subjective ROS Limited/Unobtainable: No Constitutional: Reports: fatigue, other - + vent, poorly responsive ; Denies: fever Gastrointestinal/Abdominal: Denies: nausea, vomiting Psychiatric: Reports: depression, other - NA Skin: Denies: rash Musculoskeletal: Reports: other - NA Allergies: Coded Allergies: PENICILLINS (Verified Allergy, Unknown, 11/01/19) VANCOMYCIN (Verified Allergy, Unknown, 11/01/19) Uncoded Allergies: PENICI (Allergy, Unknown, 11/01/19) All Systems: reviewed and negative except above Subjective no signs of resp distress on current vent settings leukocytosis up to 107.8 no fevers since am 11/16 PICC exchanged 11/15 s/p EGD , removal of G tube 10/07 on TPN since 11/08 s/p 1 u PRNC and 1 u plateletpheresis 11/14 -> 11/19 PLT 39, Hgb 7.8 Objective Last 24 Hour Vital Signs Date Time Temp Pulse Resp B/P (MAP) Pulse Ox O2 Delivery O2 Flow Rate FiO2 11/20/19 04:00 110 11/20/19 04:00 Mechanical Ventilator 11/20/19 04:00 99.0 116 24 127/63 (84) 94 11/20/19 04:00 40 11/20/19 03:10 106 20 40 11/20/19 00:00 107 11/20/19 00:00 98.5 108 22 128/66 (86) 98 11/20/19 00:00 Mechanical Ventilator 11/19/19 23:15 111 22 40 11/19/19 20:00 Mechanical Ventilator 11/19/19 20:00 40 11/19/19 20:00 98.6 115 22 129/62 (84) 97 11/19/19 19:29 115 11/19/19 19:18 113 23 40 11/19/19 16:00 40 11/19/19 16:00 111 11/19/19 16:00 98.9 111 22 144/59 (87) 100 11/19/19 16:00 Mechanical Ventilator 11/19/19 15:22 114 24 40 11/19/19 12:00 105 11/19/19 12:00 98.0 107 22 135/59 (84) 100 11/19/19 12:00 Mechanical Ventilator 11/19/19 12:00 40 11/19/19 11:06 107 21 40 11/19/19 08:00 106 11/19/19 08:00 97.9 108 22 138/76 (96) 100 11/19/19 08:00 Mechanical Ventilator 11/19/19 08:00 40 Intake and Output 11/19/19 11/20/19 19:00 07:00 Intake Total 1014 ml 1510.2 ml Output Total 950 ml 1800 ml Balance 64 ml -289.8 ml IV Total 78 ml 1510.2 ml Other 936 ml Output Urine Total 950 ml 1800 ml Objective General Appearance: no apparent distress, bedridden, vent dependent chronically ill appearing female Lines, tubes and drains: peripheral HEENT: normocephalic, atraumatic, anicteric, status post trach: Shiley #6, secretions small amount, thick consistency, white color , Vent AC 400-40%-20 PEEP 5 Respiratory/Chest: no respiratory distress, few scattered rhonchi Cardiovascular/Chest: regular rhythm, LUE PICC intact Abdomen: non tender, soft, distended, dressing over old G tube site , saturating frequently, currently just changed, dry Extremities: no edema, spastic LE Skin Exam: warm/dry, multiple DTI POA ( sacral, ankle foot, elbow) Neurologic: abnormal gait : bedridden, not responsive Musculoskeletal: atrophy - BLE Laboratory Tests 11/19/19 12:14: POC Whole Blood Glucose [Pending] Current Medications Medications (Trade) Dose Ordered Sig/Inna Route PRN Reason Start Time Stop Time Status Last Admin Dose Admin Acetaminophen (Tylenol) 650 mg Q4H PRN GT fever 100.4, mild pain 11/10/19 10:00 12/01/19 23:14 Acetaminophen (Tylenol) 650 mg Q4H PRN RECTAL Temp >100.5 11/08/19 21:30 12/08/19 21:29 11/18/19 21:43 Albuterol/ Ipratropium (Albuterol/ Ipratropium) 3 ml Q4H PRN HHN Shortness of Breath 11/15/19 09:45 11/20/19 09:44 Ascorbic Acid (Vitamin C) 500 mg DAILY GT 11/02/19 09:00 12/02/19 08:59 11/08/19 08:42 Carbidopa/Levodopa (Sinemet 25/100) 2 tab QID GT 11/02/19 09:00 12/02/19 08:59 11/08/19 08:42 Chlorhexidine Gluconate (Josefa-Hex 2%) 1 applic DAILY@2000 TOPIC 11/15/19 20:00 02/13/20 19:59 11/19/19 20:07 Daptomycin 500 mg/ Sodium Chloride 50 ml @ 100 mls/hr Q24H IV 11/20/19 16:00 11/27/19 15:59 Dextrose 1,000 ml @ 0 mls/hr Q24H PRN IV PN interrupted or unavailable 11/09/19 20:00 12/09/19 19:59 Dextrose (Dextrose 50%) 25 ml Q30M PRN IV Hypoglycemia 11/09/19 20:00 02/07/20 19:59 Dextrose (Dextrose 50%) 50 ml Q30M PRN IV Hypoglycemia 11/09/19 20:00 02/07/20 19:59 Docusate Sodium (Colace) 100 mg DAILY GT 11/02/19 09:00 12/02/19 08:59 11/08/19 08:41 Entacapone (Comtan) 400 mg THREE TIMES A DAY ORAL 11/10/19 13:00 12/02/19 17:59 Fat Emulsion Intravenous 192 ml/Amino Acids/ Electrolytes/ Dextrose 1,872 ml @ 78 mls/hr Q24H IV 11/11/19 20:00 12/11/19 19:59 11/19/19 20:06 Insulin Aspart (NovoLOG) Q6HR SUBQ 11/06/19 12:00 02/04/20 11:59 11/19/19 23:21 Metoclopramide HCl (Reglan) 5 mg Q6H PRN IVP nausea or vomiting 11/01/19 23:15 12/01/19 23:14 11/02/19 12:51 Multivitamins (Multivitamins W/ Minerals 15ml Liquid) 15 ml DAILY GT 11/02/19 09:00 12/02/19 08:59 11/08/19 08:42 Ondansetron HCl (Zofran) 4 mg Q4H PRN IVP Nausea & Vomiting 11/01/19 23:15 12/01/19 23:14 Pantoprazole (Protonix) 40 mg DAILY IVP 11/05/19 09:00 12/05/19 08:59 11/19/19 08:57 Polyethylene Glycol (Miralax) 17 gm DAILY PRN GT Constipation 11/02/19 08:30 12/02/19 07:59 Polymyxin B Sulfate 900624 units/Dextrose 550 ml @ 550 mls/hr EVERY 12 HOURS IV 11/16/19 09:00 11/23/19 08:59 11/19/19 20:15 Quetiapine Fumarate (SEROqueL) 50 mg QHS GT 11/02/19 21:00 12/17/19 20:59 11/07/19 21:36 Sennosides (Senokot) 8.6 mg QHS GT 11/02/19 21:00 12/02/19 20:59 11/07/19 21:32 Tigecycline 50 mg/ Sodium Chloride 110 ml @ 220 mls/hr Q12H IVPB 11/20/19 00:00 11/27/19 00:00 11/19/19 23:19 Zinc Oxide (Desitin) 1 applic FOUR TIMES A DAY TOPIC 11/04/19 14:00 12/04/19 13:59 11/19/19 20:07 Assessment/Plan Assessment/Plan ASSESSMENT Chronic respiratory failure ventilator dependent with tracheostomy status Sepsis Bacteremia PICC infection with Klebsiella CRE Persistent fevers Hypotension, possible early shock - resolved Pneumonia, possible aspiration UTI with Klebsiella pneumonia CRE Hypotension, possible early shock - resolved 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), s/p 2 u PRBC Pancytopenia Leukocytosis Dysphagia, feeding by G-tube Advanced Parkinson's disease Severe protein calorie malnutrition Malfunctioning G tube ( inadvertently was removed), s/p EGD and removal of G tube Multiple DTI , POA Ovarian mass consistent with neoplasm AML Suspected COVID-19 infection -ruled out Severe protein calorie malnutrition Functional quadriplegia E/lyte abnormalities PLAN OF CARE NAZARIO ( was for a short time in ICU, responded to IVC boluses and albumin boluses) ventilator support, trach care, pulm toilet ABG stable on current settings, keep as is and optimize as needed CXR 11/06 unchanged, SCX 11/05 Providencia , Klebsiella CRE, Pseudomonas CXR 11/09 no change: Tracheostomy remains in place. Basilar infiltrates not significantly changed. Small effusions unchanged CXR 11/12 -Persistent low lung volumes, may be related to shallow inspiration. Bilateral patchy interstitial and air space opacities, most prominent in the left lung base. Stable to mildly worsened compared to the prior exam and is concerning for pneumonia versus pulmonary edema. Possible small left pleural effusion. CXR 11/14 - Slight worsening of bilateral alveolar densities which could be worsening infiltrates and/or edema repeat CXR 11/17 no significant changes from before BCX 10/31 05/28 Staph haemolyticus, likely contaminant BCX 11/01 05/28 MRSA BCX 11/03 NGTD UCX Klebsiella CRE BCX 11/05 ACB MDR, Staph BCX 11/06 NGTD BCX 11/10 GNR UCX 11/10 + yeast BCX 11/13 NGTD PICC tip CX + Klebsiella CRE abx optimized by per ID recs -Dapto, Poly and Tygacil -CT A/P 11/09 BILATERAL SMALL PLEURAL EFFUSIONS AND DEPENDENT INFILTRATES. HUGE SEPTATED CYSTIC MASS ARISING FROM THE PELVIS EXTENDING INTO THE ABDOMEN MOST LIKELY OF OVARIAN ORIGIN. SMALL AMOUNT OF FREE FLUID ADJACENT TO THE HEPATIC AND SPLENIC EDGE WELL IN THE PELVIS. LEFT RENAL STONE. POSSIBLE SLUDGE OR NONCALCIFIED STONES LAYERING IN THE GALLBLADDER. LEFT LOWER QUADRANT STOMA. SEVERE DEGENERATIVE CHANGES AND DEXTROSCOLIOSIS OF THE SPINE. ANASARCA. ECHO with pEF 55%, no discrete vegetation seen COVID 11/01 NGT, Venous Duplex BLE NGT, apply SCD, monitor HH with goal to keep Hgb >7, trend PLT severe pancytopenia likely 2 to AML was transfused with 1 unit PLT-pheresis and 1 u PRBC leukocytosis 2 to sepsis and partially probably due to malignancy/AML and ovarian Ca gentle IVF replace lytes as needed, monitor volumes asp precautions GT was inadvertently removed s/p replacement 11/03 by GI started TF still leaking plan replacement with GJ tube but cancelled due to leukocytosis s/p EGD 11/07, old G tube removed, unable to place a new one due to a large site , currently on TPN strict aspir precautions protein supplement as per RD recs continue SNF meds as per primary supportive care bowel regimen wound care as per surgeon recs overall prognosis grave, given sepsis and multiple comorbidities, with superimposed AML and ovarian mass, DNR/DNI status family declined transfer to [place] at this time case discussed and evaluated by supervising physician Martha Chandler NP Nov 20, 2019 08:00
[2019-11-20] MEDS ORDERED: Albuterol/Ipratropium 3ml neb HHN PRN (08:02)
[2019-11-20] MEDS: Pantoprazole Inj IVP SCH (08:45)
[2019-11-20] MEDS: Polymyxin B Sulfate 500,000 UNITS in D5W 500ml 550 ML IV SCH ×2 (08:46→20:01)
[2019-11-20] MEDS: Desitin Rash Paste TOPIC SCH ×4 (08:46→20:01)
[2019-11-20] MEDS: Multivitamins W/Minerals 15 ML UDC GT SCH (08:47)
[2019-11-20] MEDS: Levodopa/Carbidopa 25/100 tab GT SCH ×4 (08:47→20:01)
[2019-11-20] MEDS: Entacapone 200mg tab ORAL SCH ×3 (08:47→18:00)
[2019-11-20] MEDS: Docusate 100mg/10ml Liq GT SCH (08:47)
[2019-11-20] MEDS: Ascorbic Acid 500mg tab GT SCH (08:47)
--- NOTE | 2019-11-20 11:49 | Internal Med Progress Note ---
Subjective Date of Service: Nov 19, 2019 Physician Name Fredrick Prince Attending Physician Fredrick Prince MD Current Medications Medications (Trade) Dose Ordered Sig/Inna Route PRN Reason Start Time Stop Time Status Last Admin Dose Admin Acetaminophen (Tylenol) 650 mg Q4H PRN GT fever 100.4, mild pain 11/10/19 10:00 12/01/19 23:14 Acetaminophen (Tylenol) 650 mg Q4H PRN RECTAL Temp >100.5 11/08/19 21:30 12/08/19 21:29 11/18/19 21:43 Albuterol/ Ipratropium (Albuterol/ Ipratropium) 3 ml Q4H PRN HHN Shortness of Breath 11/20/19 08:02 11/25/19 08:01 Ascorbic Acid (Vitamin C) 500 mg DAILY GT 11/02/19 09:00 12/02/19 08:59 11/08/19 08:42 Carbidopa/Levodopa (Sinemet 25/100) 2 tab QID GT 11/02/19 09:00 12/02/19 08:59 11/08/19 08:42 Chlorhexidine Gluconate (Josefa-Hex 2%) 1 applic DAILY@2000 TOPIC 11/15/19 20:00 02/13/20 19:59 11/19/19 20:07 Daptomycin 500 mg/ Sodium Chloride 50 ml @ 100 mls/hr Q24H IV 11/20/19 16:00 11/27/19 15:59 Dextrose 1,000 ml @ 0 mls/hr Q24H PRN IV PN interrupted or unavailable 11/09/19 20:00 12/09/19 19:59 Dextrose (Dextrose 50%) 25 ml Q30M PRN IV Hypoglycemia 11/09/19 20:00 02/07/20 19:59 Dextrose (Dextrose 50%) 50 ml Q30M PRN IV Hypoglycemia 11/09/19 20:00 02/07/20 19:59 Docusate Sodium (Colace) 100 mg DAILY GT 11/02/19 09:00 12/02/19 08:59 11/08/19 08:41 Entacapone (Comtan) 400 mg THREE TIMES A DAY ORAL 11/10/19 13:00 12/02/19 17:59 Fat Emulsion Intravenous 192 ml/Amino Acids/ Electrolytes/ Dextrose 1,872 ml @ 78 mls/hr Q24H IV 11/11/19 20:00 12/11/19 19:59 11/19/19 20:06 Insulin Aspart (NovoLOG) Q6HR SUBQ 11/06/19 12:00 02/04/20 11:59 11/19/19 23:21 Metoclopramide HCl (Reglan) 5 mg Q6H PRN IVP nausea or vomiting 11/01/19 23:15 12/01/19 23:14 11/02/19 12:51 Multivitamins (Multivitamins W/ Minerals 15ml Liquid) 15 ml DAILY GT 11/02/19 09:00 12/02/19 08:59 11/08/19 08:42 Ondansetron HCl (Zofran) 4 mg Q4H PRN IVP Nausea & Vomiting 11/01/19 23:15 12/01/19 23:14 Pantoprazole (Protonix) 40 mg DAILY IVP 11/05/19 09:00 12/05/19 08:59 11/20/19 08:45 Polyethylene Glycol (Miralax) 17 gm DAILY PRN GT Constipation 11/02/19 08:30 12/02/19 07:59 Polymyxin B Sulfate 068705 units/Dextrose 550 ml @ 550 mls/hr EVERY 12 HOURS IV 11/16/19 09:00 11/23/19 08:59 11/20/19 08:46 Quetiapine Fumarate (SEROqueL) 50 mg QHS GT 11/02/19 21:00 12/17/19 20:59 11/07/19 21:36 Sennosides (Senokot) 8.6 mg QHS GT 11/02/19 21:00 12/02/19 20:59 11/07/19 21:32 Tigecycline 50 mg/ Sodium Chloride 110 ml @ 220 mls/hr Q12H IVPB 11/20/19 00:00 11/27/19 00:00 11/19/19 23:19 Zinc Oxide (Desitin) 1 applic FOUR TIMES A DAY TOPIC 11/04/19 14:00 12/04/19 13:59 11/20/19 08:46 Allergies: Coded Allergies: PENICILLINS (Verified Allergy, Unknown, 11/01/19) VANCOMYCIN (Verified Allergy, Unknown, 11/01/19) Uncoded Allergies: PENICI (Allergy, Unknown, 11/01/19) ROS Limited/Unobtainable: Yes All Systems: reviewed and negative except above Subjective d/w gi plan for EGD on thursday for PEG j vs NGJ tube so she can come off TPN Family appealed DC to LTACH yesterday non verbal, chronic trach GJ tube failed due to big whole now closing on TPN Objective Last Vital Signs Date Time Temp Pulse Resp B/P (MAP) Pulse Ox O2 Delivery O2 Flow Rate FiO2 11/20/19 10:46 107 21 40 11/20/19 08:00 99.1 142/76 (98) 92 11/20/19 08:00 Mechanical Ventilator General Appearance: no apparent distress Cardiovascular: normal rate, regular rhythm Respiratory/Chest: rhonchi - bilaterally Abdomen: non tender, soft Neurologic: aphasia Skin: warm/dry Laboratory Tests Test 11/19/19 12:14 POC Whole Blood Glucose Pending Intake and Output 11/19/19 11/20/19 19:00 07:00 Intake Total 1014 ml 1510.2 ml Output Total 950 ml 1800 ml Balance 64 ml -289.8 ml IV Total 78 ml 1510.2 ml Other 936 ml Output Urine Total 950 ml 1800 ml Objective unable to place J tube .on TPN Assessment/Plan Status: stable, progressing Assessment/Plan Impression: sepsis on admission septic shock line sepsis acinectobacter bacteremia fungal cystitis 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 s/p platelet tx one unit 11/14 prbc tx one unit 11/14 remove 1st PICC IVF NS plus TPN ltach bobby transfer d/w family. /son NOT in agreement. appealed DC. CM f/u abx broaden per ID worsening wbc could be AML flare microfungin on TPN. d/w GI PGE/J in few week unable to put PEG J tube due to large whole KCL IV replete prn s/p Mg sulfate IV 2 gram leukocytosis could be AML flare IV abx per ID wound care f/u cx ID f/u electrolyte replete as needed enteral feeding ventilator pulm HHN dong pain control dc aricept, allopurinol DNAR status Fredrick Prince MD Internal Medicine [phone] time spent today 40 minutes stamp time on this note may NOT be the actual encounter time. Fredrick Prince MD Nov 20, 2019 11:49
--- NOTE | 2019-11-20 11:50 | Internal Med Progress Note ---
Subjective Date of Service: Nov 20, 2019 Physician Name Fredrick Prince Attending Physician Fredrick Prince MD Current Medications Medications (Trade) Dose Ordered Sig/Inna Route PRN Reason Start Time Stop Time Status Last Admin Dose Admin Acetaminophen (Tylenol) 650 mg Q4H PRN GT fever 100.4, mild pain 11/10/19 10:00 12/01/19 23:14 Acetaminophen (Tylenol) 650 mg Q4H PRN RECTAL Temp >100.5 11/08/19 21:30 12/08/19 21:29 11/18/19 21:43 Albuterol/ Ipratropium (Albuterol/ Ipratropium) 3 ml Q4H PRN HHN Shortness of Breath 11/20/19 08:02 11/25/19 08:01 Ascorbic Acid (Vitamin C) 500 mg DAILY GT 11/02/19 09:00 12/02/19 08:59 11/08/19 08:42 Carbidopa/Levodopa (Sinemet 25/100) 2 tab QID GT 11/02/19 09:00 12/02/19 08:59 11/08/19 08:42 Chlorhexidine Gluconate (Josefa-Hex 2%) 1 applic DAILY@2000 TOPIC 11/15/19 20:00 02/13/20 19:59 11/19/19 20:07 Daptomycin 500 mg/ Sodium Chloride 50 ml @ 100 mls/hr Q24H IV 11/20/19 16:00 11/27/19 15:59 Dextrose 1,000 ml @ 0 mls/hr Q24H PRN IV PN interrupted or unavailable 11/09/19 20:00 12/09/19 19:59 Dextrose (Dextrose 50%) 25 ml Q30M PRN IV Hypoglycemia 11/09/19 20:00 02/07/20 19:59 Dextrose (Dextrose 50%) 50 ml Q30M PRN IV Hypoglycemia 11/09/19 20:00 02/07/20 19:59 Docusate Sodium (Colace) 100 mg DAILY GT 11/02/19 09:00 12/02/19 08:59 11/08/19 08:41 Entacapone (Comtan) 400 mg THREE TIMES A DAY ORAL 11/10/19 13:00 12/02/19 17:59 Fat Emulsion Intravenous 192 ml/Amino Acids/ Electrolytes/ Dextrose 1,872 ml @ 78 mls/hr Q24H IV 11/11/19 20:00 12/11/19 19:59 11/19/19 20:06 Insulin Aspart (NovoLOG) Q6HR SUBQ 11/06/19 12:00 02/04/20 11:59 11/19/19 23:21 Metoclopramide HCl (Reglan) 5 mg Q6H PRN IVP nausea or vomiting 11/01/19 23:15 12/01/19 23:14 11/02/19 12:51 Multivitamins (Multivitamins W/ Minerals 15ml Liquid) 15 ml DAILY GT 11/02/19 09:00 12/02/19 08:59 11/08/19 08:42 Ondansetron HCl (Zofran) 4 mg Q4H PRN IVP Nausea & Vomiting 11/01/19 23:15 12/01/19 23:14 Pantoprazole (Protonix) 40 mg DAILY IVP 11/05/19 09:00 12/05/19 08:59 11/20/19 08:45 Polyethylene Glycol (Miralax) 17 gm DAILY PRN GT Constipation 11/02/19 08:30 12/02/19 07:59 Polymyxin B Sulfate 729218 units/Dextrose 550 ml @ 550 mls/hr EVERY 12 HOURS IV 11/16/19 09:00 11/23/19 08:59 11/20/19 08:46 Quetiapine Fumarate (SEROqueL) 50 mg QHS GT 11/02/19 21:00 12/17/19 20:59 11/07/19 21:36 Sennosides (Senokot) 8.6 mg QHS GT 11/02/19 21:00 12/02/19 20:59 11/07/19 21:32 Tigecycline 50 mg/ Sodium Chloride 110 ml @ 220 mls/hr Q12H IVPB 11/20/19 00:00 11/27/19 00:00 11/19/19 23:19 Zinc Oxide (Desitin) 1 applic FOUR TIMES A DAY TOPIC 11/04/19 14:00 12/04/19 13:59 11/20/19 08:46 Allergies: Coded Allergies: PENICILLINS (Verified Allergy, Unknown, 11/01/19) VANCOMYCIN (Verified Allergy, Unknown, 11/01/19) Uncoded Allergies: PENICI (Allergy, Unknown, 11/01/19) ROS Limited/Unobtainable: Yes All Systems: reviewed and negative except above Subjective d/w gi plan for EGD on thursday for PEG j vs NGJ tube so she can come off TPN Family appealed DC to LTACH non verbal, chronic trach GJ tube failed due to big whole now closing on TPN Objective Last Vital Signs Date Time Temp Pulse Resp B/P (MAP) Pulse Ox O2 Delivery O2 Flow Rate FiO2 11/20/19 10:46 107 21 40 11/20/19 08:00 99.1 142/76 (98) 92 11/20/19 08:00 Mechanical Ventilator General Appearance: no apparent distress EENT: other - trach Cardiovascular: normal rate, regular rhythm, systolic murmur Respiratory/Chest: lungs clear, rhonchi - right Abdomen: normal bowel sounds, non tender, soft Edema: other - +edema Neurologic: aphasia Laboratory Tests Test 11/19/19 12:14 POC Whole Blood Glucose Pending Intake and Output 11/19/19 11/20/19 19:00 07:00 Intake Total 1014 ml 1510.2 ml Output Total 950 ml 1800 ml Balance 64 ml -289.8 ml IV Total 78 ml 1510.2 ml Other 936 ml Output Urine Total 950 ml 1800 ml Objective unable to place J tube .on TPN Assessment/Plan Status: stable, unchanged Assessment/Plan Impression: sepsis on admission septic shock line sepsis acinectobacter bacteremia fungal cystitis 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 s/p platelet tx one unit 11/14 prbc tx one unit 11/14 remove 1st PICC IVF NS plus TPN ltach bobby transfer d/w family. /son NOT in agreement. appealed DC. CM f/u abx per ID worsening wbc could be AML flare microfungin on TPN. d/w GI PGE/J in few week unable to put PEG J tube due to large whole KCL IV replete prn s/p Mg sulfate IV 2 gram leukocytosis could be AML flare IV abx per ID wound care f/u cx ID f/u electrolyte replete as needed enteral feeding ventilator pulm HHN dong pain control dc aricept, allopurinol DNAR status Fredrick Prince MD Internal Medicine [phone] time spent today 50 minutes stamp time on this note may NOT be the actual encounter time. Fredrick Prince MD Nov 20, 2019 11:50
[2019-11-20 12:00] VITALS: BP 131/63
[2019-11-20] MEDS: [UNRECOGNIZED DRUG - OTHER] IVPB SCH ×2 (13:09)
[2019-11-20 14:28] LABS: HEMATOCRIT 23.2 % (37.0-47.0); HEMOGLOBIN 7.8 G/DL (12.0-16.0); MEAN CORPUSCULAR VOLUME 102 FL (80-99); PLATELET COUNT 39 K/UL (150-450); RED BLOOD COUNT 2.28 M/UL (4.20-5.40); WHITE BLOOD COUNT 107.1 K/UL (4.8-10.8)
--- NOTE | 2019-11-20 14:34 | NUR ---
NURSE NOTES: Called and spoke to Martha Chandler [employer]. regarding WBC 107.1 and hgb 7.8 and no new order. Informed her also plt 39 today. Pt. DNR code status.
[2019-11-20 16:00] VITALS: BP 142/67
[2019-11-20] MEDS: DAPTOmycin 500 MG in NS 50 ML IV SCH (16:51)
--- NOTE | 2019-11-20 19:01 | NUR ---
HAND-OFF: Report given to Terra DUKE.
[2019-11-20] MEDS: FAT EMULSION 20% IV SCH (19:19)
[2019-11-20] MEDS: TPN IV SCH (19:19)
--- NOTE | 2019-11-20 19:34 | NUR ---
RESPIRATORY NOTE: Received pt on AC 20, 400VT, 40%, PEEP +5. Pt is trach-dependent w/ a cuffed, Shiley 6 tube. Pt obtunded/flat effect. B/S love. rhonchi, sxn small to moderate amounts of thick/thin/frothy, pale-yellow secretions. Vent plugged into red outlet, ambubag at bedside. Pt in no apparent distress at this time. Will continue plan of care.
--- NOTE | 2019-11-20 19:40 | NUR ---
"NURSE NOTES: Received patient from SRIKANTH Stone. Patient in bed with eyes open- obtunded. No signs or symptoms of acute cardiac or respiratory distress noted, pt. appears to be tolerating current vent settings as ordered: A/C 20 | TV 400 | FiO2 40% | Peep 5- No respiratory distress noted. Patient is currently NPO as endorsed. Bailey intact and draining to gravity. Patient appears to be clean and dry. Noted with left upper arm PICC double lumen running TPN at 78 mL/hour- will change bag as it is empty, Safety measures continued, skin precautions observed, Bed in lowest and locked position. HOB elevated- aspiration precautions observed, Call light within reach. Side rails up x3. Will continue to monitor and with plan of care."
[2019-11-20 20:00] VITALS: BP 115/79
[2019-11-20] MEDS: Sennosides 8.6mg tab GT SCH (20:01)
[2019-11-20] MEDS: Dyna-Hex 2% Top Sol 2oz TOPIC SCH (20:01)
--- NOTE | 2019-11-20 20:21 | Surgery Progress Note ---
Surgery Progress Note Subjective Symptoms: worse Objective Last 24 Hour Vital Signs Date Time Temp Pulse Resp B/P (MAP) Pulse Ox O2 Delivery O2 Flow Rate FiO2 11/20/19 19:30 116 26 40 11/20/19 16:00 Mechanical Ventilator 11/20/19 16:00 99.1 104 19 142/67 (92) 98 11/20/19 16:00 40 11/20/19 15:20 106 11/20/19 14:43 109 22 40 11/20/19 12:00 Mechanical Ventilator 11/20/19 12:00 98.6 118 18 131/63 (85) 97 11/20/19 12:00 40 11/20/19 11:45 107 11/20/19 10:46 107 21 40 11/20/19 08:00 40 11/20/19 08:00 99.1 110 20 142/76 (98) 92 11/20/19 08:00 Mechanical Ventilator 11/20/19 07:24 112 11/20/19 06:43 118 23 40 11/20/19 04:00 110 11/20/19 04:00 Mechanical Ventilator 11/20/19 04:00 99.0 116 24 127/63 (84) 94 11/20/19 04:00 40 11/20/19 03:10 106 20 40 11/20/19 00:00 107 11/20/19 00:00 98.5 108 22 128/66 (86) 98 11/20/19 00:00 Mechanical Ventilator 11/19/19 23:15 111 22 40 I&O Intake and Output 11/19/19 11/20/19 19:00 07:00 Intake Total 1014 ml 1588.2 ml Output Total 950 ml 1800 ml Balance 64 ml -211.8 ml IV Total 78 ml 1588.2 ml Other 936 ml Output Urine Total 950 ml 1800 ml Dressing: other Wound: other Drains: other Cardiovascular: RSR Respiratory: decreased breath sounds Abdomen: soft, non-tender, present bowel sounds Extremities: no tenderness, no cyanosis Laboratory Tests Test 11/20/19 14:00 11/20/19 18:55 White Blood Count 107.1 K/UL (4.8-10.8) *H Red Blood Count 2.28 M/UL (4.20-5.40) L Hemoglobin 7.8 G/DL (12.0-16.0) L Hematocrit 23.2 % (37.0-47.0) L Mean Corpuscular Volume 102 FL (80-99) #H Mean Corpuscular Hemoglobin 34.2 PG (27.0-31.0) H Mean Corpuscular Hemoglobin Concent 33.6 G/DL (32.0-36.0) Red Cell Distribution Width 17.0 % (11.6-14.8) H Platelet Count 39 K/UL (150-450) L Mean Platelet Volume 14.1 FL (6.5-10.1) H Neutrophils (%) (Auto) % (45.0-75.0) Lymphocytes (%) (Auto) % (20.0-45.0) Monocytes (%) (Auto) % (1.0-10.0) Eosinophils (%) (Auto) % (0.0-3.0) Basophils (%) (Auto) % (0.0-2.0) Differential Total Cells Counted 100 Neutrophils % (Manual) 10 % (45-75) L Lymphocytes % (Manual) 13 % (20-45) L Monocytes % (Manual) 9 % (1-10) Eosinophils % (Manual) 1 % (0-3) Basophils % (Manual) 0 % (0-2) Blast Cells % 67 % (0-0) *H Band Neutrophils 0 % (0-8) Smudge Cells Occasional Platelet Estimate Decreased L Platelet Morphology Normal Polychromasia 1+ Hypochromasia 1+ Anisocytosis 1+ Sodium Level Pending Potassium Level Pending Chloride Level Pending Carbon Dioxide Level Pending Blood Urea Nitrogen Pending Creatinine Pending Estimat Glomerular Filtration Rate Pending Glucose Level Pending Calcium Level Pending Total Creatine Kinase Pending Plan Problems: (1) Decubitus skin ulcer Assessment & Plan: Pt presented on admission with multiple Pressure Injuries, and contractures. Large Soft Mass noted to lateral R chest ,just inferior to Breast.Soft mass that uis violaceous and denuded. Unstageable Pressure injury R thoracic. Wound presents as partially opened DTPI( L)6cm x (W)8.5cm. 95% Soft eschar flap,5% dee. Marginal erythema along borders In addition scattered linear and purple area periwound. Full thickness stage 4 Sacral Pressure Injury(L)9.3cm x (W)8.7cm. Base of wound is 95% necrotic,but bone is palpable.Mild odor noted. No exudate noted. Non-blanching erythema periwound. Unstageable Pressure Injury R trochanter(L)3.5cm x (W)4.2cm. Base of wound is 90 % soft eschar, 10% pink epithelial. Edges adherent to base of wound .No erythema induration or fluctuance periwound. Unstageable Pressure injury R Ischium(L)3.5cm x (W)2.5cm. Dry eschar at base of wound, edges are adherent with surrounding pink epithelial. No erythema or induration periwound. DTPI L trochanter(L)4cm x (W)1cm. Stable dry eschar L Hallux(L)1.6cm x (W)2cm.NO erythema fluctuance or induration periwound. L 1st metatarsal TMA noted. Stable dry eschar distal/lateral L foot (L)1.5cm x (W)3cm. No erythema, induration or fluctuance periwound. DTPI noted to plantar L foot.(L)0.9cm x (W)0.9cm. Base of wound is fluctuant, purple with maroon borders. Unstageable Pressure injury L lateral Malleolus. Stable dry eschar noted.No erythema or induration periwound. L heel is boggy with non-blanching erythema. Unstageable Pressure injury R Hallux and plantar aspect(L)3.5cm x (W)3.4cm. Soft eschar at base of wound with marginal erythema along borders. R heel is boggy with Non-Blanching erythema. Unstageable Presure injury distal/Lateral R foot . Stable dry eschar noted . No erythema of fluctuance periwound. Tx.Plan: Cleanse Sacral Wound with Saline. Loosely pack with Therahoney impregnated Kerlix.Applpy Moisture Barrier Paste periwound. Cover with Optifoam drsg. Change Daily and prn. Cleanse Soft Mass R chest with Saline. Cover with Optifoam drsg. Change Daily and prn. Cleanse wounds R trochanter, R Ischium with Saline. Apply Moisture Barrier Paste.Cover with Optifoam drsg. Change every 3 days and prn. Apply Moisture Barrier to L trochanter. Cvoer with Optifoam drsg. Change every 3 days and prn. Apply Betadine to wounds R and L foot. Cover each wound with Optifoam drsg. Changee very 3 days and prn. Apply Cavilon Skin Barrier to both heels. Cover each heel with Optifoam drsg. Change every 7 days and prn. APM/ANA Mattress overlay. turn q2h nutritional optimization (2) Malnutrition Assessment & Plan: pending g tube DAILY ESTIMATED NEEDS: Needs based on Critical care, wounds, 64kg 22-28 kcals/kg 7965-9629 total kcals 1.25-2 g protein/kg 80-128 g total protein 25-30 mL/kg 4635-8086 total fluid mLs NUTRITION DIAGNOSIS: Swallowing difficulty r/t respiratory status as evidenced by pt is trach and peg dep, currently NPO, on TPN. CURRENT TF:NPO, on TPN ENTERAL NUTRITION RECOMMENDATIONS: VITAL AF 1.2 @ 55ml/hr x24 hrs to provide 1320ml, 1584 kcal, 99g pro, 1071ml free H2O - Post PEJ placement, initiate Vital AF 1.2 @ 25ml/hr x 6hrs, advance 10ml q 4- 6 hrs as tolerated to goal. - Flush per - WYATT over 30 degrees PARENTERAL NUTRITION RECOMMENDATIONS: D/AA Rate: 70 IL Rate: 8 Total Rate: 78 Volume: 1872 % Dextrose: 18 % AA: 5.5 Energy (kcals/kg): 1781 Protein (g/kg protein): 92 Nonprotein KCALS: 1412 GIR (mg CHO/kg/min): 3.3 % Fat KCALS: 22 NCP: N Ratio: 96:1 TPN Comment: - Maintain current TPN: -> D18%, AA 5.5% @70ml/hr w/ 20%IL @8ml/hr - all 3:1 - TF at goal meets 100% est needs, provides 28 kcal/kg and 1.4g/kg pro. - GIR<5 - IL <30% ADDITIONAL RECOMMENDATIONS: 1) Per SNF: 65 inches (5'5"); 141 lbs (64.1kg) 2) Wound care: add MEIR BID via GT w/ TF order 3) Monitor lytes, BG, and LFT's on TPN - check phos and mag (not checked since TPN initiation) (3) Anemia Assessment & Plan: transfused trend labs no active bleeding stool study GI eval (4) UTI (urinary tract infection) (5) Tracheostomy dependence Assessment & Plan: Findings: The left hemidiaphragm is elevated. Atelectatic changes are present in the left lung base. There is minimal right basilar atelectasis. No definite infiltrates. There is a tracheostomy. Impression: Elevated left hemidiaphragm with considerable left basilar atelectasis. Less extensive right basilar atelectasis. Inspiration is suboptimal. Interim development of opacity of the left mid and lower lung. The left hemidiaphragm is obscured. Right lung is probably clear , although there is crowding of bronchovascular lung volumes. Tracheostomy remains. Impression: Since 11/01/2019, interim development of left mid and lower lung infiltrates versus edema and possibly pleural fluid Juan Houser Nov 20, 2019 20:21
[2019-11-20 20:23] LABS: ANION GAP 6 mmol/L (5-15); BLOOD UREA NITROGEN 26 mg/dL (7-18); CALCIUM 7.7 MG/DL (8.5-10.1); CARBON DIOXIDE 27 MMOL/L (21-32); CHLORIDE 106 MMOL/L (98-107); CREATINE KINASE 19 U/L (26-308); CREATININE 0.7 MG/DL (0.55-1.30); POTASSIUM 4.4 MMOL/L (3.5-5.1); SODIUM 139 MMOL/L (136-145)
[2019-11-21] VITALS: BP 106/51
--- NOTE | 2019-11-21 00:05 | NUR ---
NURSE NOTES: Acetaminophen administered 0005 rectally- pt. temp 99.8 axillary- cooling measures applied- pt. remains stable- will continue to monitor pt. and with plan of care- pt. remains stable.
--- NOTE | 2019-11-21 01:00 | NUR ---
NURSE NOTES: bed bath given- oral care provided, repositioned and turned pt.- pt. remains fever free-wound dressings changed and redressed- as ordered- will continue to monitor pt. and with plan of care.
[2019-11-21 04:00] VITALS: BP 101/59
[2019-11-21] MEDS: NovoLOG Insulin Flexpen SUBQ SCH ×5 (05:09→23:45)
[2019-11-21 05:19] LABS: HEMATOCRIT 25.3 % (37.0-47.0); MEAN CORPUSCULAR VOLUME 92 FL (80-99); PLATELET COUNT 37 K/UL (150-450); RED BLOOD COUNT 2.74 M/UL (4.20-5.40); RED CELL DISTRIBUTION WIDTH 15.5 % (11.6-14.8)
[2019-11-21 05:43] LABS: WHITE BLOOD COUNT 146.5 K/UL (4.8-10.8)
[2019-11-21 05:47] LABS: ANION GAP 4 mmol/L (5-15); BLOOD UREA NITROGEN 28 mg/dL (7-18); CALCIUM 7.7 MG/DL (8.5-10.1); CARBON DIOXIDE 30 MMOL/L (21-32); CHLORIDE 106 MMOL/L (98-107); CREATININE 0.8 MG/DL (0.55-1.30); POTASSIUM 3.9 MMOL/L (3.5-5.1); SODIUM 140 MMOL/L (136-145)
--- NOTE | 2019-11-21 07:03 | NUR ---
HAND-OFF: Report given to SRIKANTH Cruz- pt. remains stable and no signs of distress noted- aware to f/u on EGD. Aware to f/u on any am abnormal labs.
--- NOTE | 2019-11-21 07:26 | NUR ---
NURSE NOTES: Received report from SRIKANTH Ellison. Patient in bed resting, no active s/s cardiac, respiratory distress noticed at this time. Patient Obtundent, open eyes spontaneously and to pain. Trach to Vent Shiley 6 AC 20 TV 400 Fio2 40% PEEP 5, O2 Sat 100% Endorsed NPO at this time, planning EGD and GJT placement, no consent received at this time, will follow up with MD and family members. Endorsed fever last night 99.8, Tylenol given once now T 98.2. Bailey Catheter draining well to gravity at this time. TPN running as prescribed 78ml/h. PICC line on left upper arm intact and patent. GT leaks on left side, dressing dry and intact. Bed in lowest position and locked, side rails x3, call light within reach, bed alarm on. Will continue to monitor.
--- NOTE | 2019-11-21 07:43 | NUR ---
NURSE NOTES: Called Family member BrunoMauroJose Maria Tele [phone] left message.
[2019-11-21 08:00] VITALS: BP 106/48
--- NOTE | 2019-11-21 08:00 | NUR ---
NURSE NOTES: Dr. Reeves paged and made aware patient had fever last night, pending consent. No new order received at this time.
[2019-11-21] MEDS: Desitin Rash Paste TOPIC SCH ×4 (08:26→20:12)
[2019-11-21] MEDS: Pantoprazole Inj IVP SCH (08:27)
[2019-11-21] MEDS: Docusate 100mg/10ml Liq GT SCH (08:29)
[2019-11-21] MEDS: Levodopa/Carbidopa 25/100 tab GT SCH ×4 (08:29→20:10)
[2019-11-21] MEDS: Ascorbic Acid 500mg tab GT SCH (08:29)
[2019-11-21] MEDS: Multivitamins W/Minerals 15 ML UDC GT SCH (08:29)
[2019-11-21] MEDS: Entacapone 200mg tab ORAL SCH ×3 (08:29→17:28)
[2019-11-21] MEDS: Polymyxin B Sulfate 500,000 UNITS in D5W 500ml 550 ML IV SCH ×2 (08:29→20:11)
--- NOTE | 2019-11-21 09:13 | Anethesia Preoperative Eval ---
Anesthesia Pre-op PMH/ROS General Date of Evaluation: Nov 21, 2019 Time of Evaluation: 09:07 Anesthesiologist: deysi ASA Score: ASA 4 Mallampati Score Class I : Soft palate, uvula, fauces, pillars visible Class II: Soft palate, uvula, fauces visible Class III: Soft palate, base of uvula visible Class IV: Only hard plate visible Mallampati Classification: Class II Surgeon: gonzález Diagnosis: malnutrition Surgical Procedure: egd, g tude to j tube Anesthesia History: none Social History: smoking - nonsmoker Family History: no anesthesia problems Allergies: Coded Allergies: PENICILLINS (Verified Allergy, Unknown, 11/01/19) VANCOMYCIN (Verified Allergy, Unknown, 11/01/19) Uncoded Allergies: PENICI (Allergy, Unknown, 11/01/19) Medications: see eMAR Patient NPO?: Yes NPO Date: Nov 08, 2019 NPO Time: 00:01 Past Medical History Pulmonary: Reports: other - tracheostomy, chronic respiratory failure, ventilator dependent Gastrointestinal/Genitourinary: Reports: other - malnutrition, hemorrhoids, uti Neurologic/Psychiatric: Reports: dementia, depression/anxiety, other - encephalopathy, parkinson's disease, Hematology/Immune: Reports: anemia, other - pancytopenia Musculoskeletal/Integumentary: Reports: other - decubitus ulcer, osteomyelitis , contractures, Anesthesia Pre-op Phys. Exam Physician Exam Last Vital Signs Date Time Temp Pulse Resp B/P (MAP) Pulse Ox O2 Delivery O2 Flow Rate FiO2 11/21/19 08:00 98.2 105 21 106/48 (67) 100 11/21/19 08:00 40 11/21/19 04:00 Mechanical Ventilator Constitutional: NAD Neurologic: other - obtunded Cardiovascular: other - tachycardia Respiratory: other - tracheostomy Gastrointestinal: other - g-tube Airway Exam Mallampati Score: Class II MO: limited Neck: tracheostomy TMD: 2fb Teeth: missing Anesthesia Pre-op A/P Labs Microbiology Date/Time Source Procedure Growth Status 11/14/19 14:05 Blood Blood Culture - Final NO GROWTH AFTER 5 DAYS Complete 11/06/19 10:04 Sputum Induced Gram Stain - Final Complete 11/06/19 10:04 Sputum Culture - Final Providencia Stuartii K.pneumoniae Carbapenem Resist Pseudomonas Aeruginosa Complete 11/13/19 04:00 Indwelling Cath Urine Culture - Final Aundrea Tropicalis Complete 11/16/19 16:00 Arm Right Catheter Tip Culture - Final K.pneumoniae Carbapenem Resist Complete Hematology Test 11/20/19 14:00 11/21/19 02:54 White Blood Count 107.1 K/UL (4.8-10.8) *H 146.5 K/UL (4.8-10.8) *H Red Blood Count 2.28 M/UL (4.20-5.40) L 2.74 M/UL (4.20-5.40) L Hemoglobin 7.8 G/DL (12.0-16.0) L 8.0 G/DL (12.0-16.0) L Hematocrit 23.2 % (37.0-47.0) L 25.3 % (37.0-47.0) L Mean Corpuscular Volume 102 FL (80-99) #H 92 FL (80-99) # Mean Corpuscular Hemoglobin 34.2 PG (27.0-31.0) H 29.3 PG (27.0-31.0) Mean Corpuscular Hemoglobin Concent 33.6 G/DL (32.0-36.0) 31.7 G/DL (32.0-36.0) L Red Cell Distribution Width 17.0 % (11.6-14.8) H 15.5 % (11.6-14.8) H Platelet Count 39 K/UL (150-450) L 37 K/UL (150-450) L Mean Platelet Volume 14.1 FL (6.5-10.1) H 12.0 FL (6.5-10.1) H Neutrophils (%) (Auto) % (45.0-75.0) % (45.0-75.0) Lymphocytes (%) (Auto) % (20.0-45.0) % (20.0-45.0) Monocytes (%) (Auto) % (1.0-10.0) % (1.0-10.0) Eosinophils (%) (Auto) % (0.0-3.0) % (0.0-3.0) Basophils (%) (Auto) % (0.0-2.0) % (0.0-2.0) Differential Total Cells Counted 100 Neutrophils % (Manual) 10 % (45-75) L Pending Lymphocytes % (Manual) 13 % (20-45) L Pending Monocytes % (Manual) 9 % (1-10) Eosinophils % (Manual) 1 % (0-3) Basophils % (Manual) 0 % (0-2) Blast Cells % 67 % (0-0) *H Band Neutrophils 0 % (0-8) Smudge Cells Occasional Platelet Estimate Decreased L Pending Platelet Morphology Normal Pending Polychromasia 1+ Hypochromasia 1+ Anisocytosis 1+ Chemistry Test 11/20/19 18:55 11/21/19 02:54 11/21/19 04:44 Sodium Level 139 MMOL/L (136-145) 140 MMOL/L (136-145) Potassium Level 4.4 MMOL/L (3.5-5.1) 3.9 MMOL/L (3.5-5.1) Chloride Level 106 MMOL/L (98-107) 106 MMOL/L (98-107) Carbon Dioxide Level 27 MMOL/L (21-32) 30 MMOL/L (21-32) Anion Gap 6 mmol/L (5-15) 4 mmol/L (5-15) L Blood Urea Nitrogen 26 mg/dL (7-18) H 28 mg/dL (7-18) H Creatinine 0.7 MG/DL (0.55-1.30) 0.8 MG/DL (0.55-1.30) Estimat Glomerular Filtration Rate > 60 mL/min (>60) > 60 mL/min (>60) Glucose Level 144 MG/DL (74-106) H 139 MG/DL (74-106) H Calcium Level 7.7 MG/DL (8.5-10.1) L 7.7 MG/DL (8.5-10.1) L Total Creatine Kinase 19 U/L (26-308) L POC Whole Blood Glucose Pending Risk Assessment & Plan Assessment: asa4 Plan: mac Status Change Before Surgery: No Pre-Antibiotics Drug: Aylin Stern MD Nov 21, 2019 09:13
[2019-11-21] MEDS ORDERED: Midazolam 2mg/2ml Inj IVP PRN (09:15)
[2019-11-21] MEDS ORDERED: Atropine Sulfate 0.4mg/ml inj IVP PRN (09:15)
[2019-11-21] MEDS ORDERED: fentaNYL 100 mcg/2 mL IV PRN (09:15)
[2019-11-21] MEDS ORDERED: DiphenhydrAMINE 50mg/ml Inj IVP PRN (09:15)
[2019-11-21] MEDS: [UNRECOGNIZED DRUG - OTHER] IVPB SCH ×6 (11:05→23:44)
--- NOTE | 2019-11-21 11:41 | Internal Med Progress Note ---
Subjective Date of Service: Nov 21, 2019 Physician Name Fredrick Prince Attending Physician Fredrick Prince MD Current Medications Medications (Trade) Dose Ordered Sig/Inna Route PRN Reason Start Time Stop Time Status Last Admin Dose Admin Acetaminophen (Tylenol) 650 mg Q4H PRN GT fever 100.4, mild pain 11/10/19 10:00 12/01/19 23:14 Acetaminophen (Tylenol) 650 mg Q4H PRN ORAL Mild Pain (Pain Scale 1-3) 11/21/19 09:15 11/21/19 17:15 Acetaminophen (Tylenol) 650 mg Q4H PRN RECTAL Temp >100.5 11/08/19 21:30 12/08/19 21:29 11/18/19 21:43 Al Hydroxide/Mg Hydroxide (Mylanta) 15 ml Q1H PRN ORAL gi upset 11/21/19 09:15 11/21/19 17:15 Albuterol/ Ipratropium (Albuterol/ Ipratropium) 3 ml Q4H PRN HHN Shortness of Breath 11/20/19 08:02 11/25/19 08:01 Ascorbic Acid (Vitamin C) 500 mg DAILY GT 11/02/19 09:00 12/02/19 08:59 11/08/19 08:42 Atropine Sulfate (Atropine 0.4mg/ ml) 0.5 mg Q5M PRN IVP HR less than 45 BPM 11/21/19 09:15 11/21/19 17:15 Carbidopa/Levodopa (Sinemet 25/100) 2 tab QID GT 11/02/19 09:00 12/02/19 08:59 11/08/19 08:42 Chlorhexidine Gluconate (Josefa-Hex 2%) 1 applic DAILY@2000 TOPIC 11/15/19 20:00 02/13/20 19:59 11/20/19 20:01 Daptomycin 500 mg/ Sodium Chloride 50 ml @ 100 mls/hr Q24H IV 11/20/19 16:00 11/27/19 15:59 11/20/19 16:51 Dextrose 1,000 ml @ 0 mls/hr Q24H PRN IV PN interrupted or unavailable 11/09/19 20:00 12/09/19 19:59 Dextrose (Dextrose 50%) 25 ml Q30M PRN IV Hypoglycemia 11/09/19 20:00 02/07/20 19:59 Dextrose (Dextrose 50%) 50 ml Q30M PRN IV Hypoglycemia 11/09/19 20:00 02/07/20 19:59 Diphenhydramine HCl (Benadryl) 25 mg Q15M PRN IVP Itching 11/21/19 09:15 11/21/19 17:15 Docusate Sodium (Colace) 100 mg DAILY GT 11/02/19 09:00 12/02/19 08:59 11/08/19 08:41 Entacapone (Comtan) 400 mg THREE TIMES A DAY ORAL 11/10/19 13:00 12/02/19 17:59 Fat Emulsion Intravenous 192 ml/Amino Acids/ Electrolytes/ Dextrose 1,872 ml @ 78 mls/hr Q24H IV 11/11/19 20:00 12/11/19 19:59 11/20/19 19:19 Fentanyl Citrate (Sublimaze 100 mcg/2 mL) 25 mcg Q10M PRN IV Moderate Pain (Pain Scale 4-6) 11/21/19 09:15 11/21/19 17:15 Hydralazine HCl (Apresoline) 5 mg Q30M PRN IV SBP>160 /DBP>90 11/21/19 09:15 11/21/19 17:15 Insulin Aspart (NovoLOG) Q6HR SUBQ 11/06/19 12:00 02/04/20 11:59 11/21/19 11:36 Metoclopramide HCl (Reglan) 5 mg Q6H PRN IVP nausea or vomiting 11/01/19 23:15 12/01/19 23:14 11/02/19 12:51 Midazolam HCl (Versed 2mg/2ml vial) 1 mg Q15M PRN IVP For Anxiety 11/21/19 09:15 11/21/19 17:15 Multivitamins (Multivitamins W/ Minerals 15ml Liquid) 15 ml DAILY GT 11/02/19 09:00 12/02/19 08:59 11/08/19 08:42 Ondansetron HCl (Zofran) 4 mg Q1H PRN IVP Nausea & Vomiting 11/21/19 09:15 11/21/19 17:15 Ondansetron HCl (Zofran) 4 mg Q4H PRN IVP Nausea & Vomiting 11/01/19 23:15 12/01/19 23:14 Pantoprazole (Protonix) 40 mg DAILY IVP 11/05/19 09:00 12/05/19 08:59 11/21/19 08:27 Polyethylene Glycol (Miralax) 17 gm DAILY PRN GT Constipation 11/02/19 08:30 12/02/19 07:59 Polymyxin B Sulfate 501163 units/Dextrose 550 ml @ 550 mls/hr EVERY 12 HOURS IV 11/16/19 09:00 11/23/19 08:59 11/21/19 08:29 Quetiapine Fumarate (SEROqueL) 50 mg QHS GT 11/02/19 21:00 12/17/19 20:59 11/07/19 21:36 Sennosides (Senokot) 8.6 mg QHS GT 11/02/19 21:00 12/02/19 20:59 11/07/19 21:32 Tigecycline 50 mg/ Sodium Chloride 110 ml @ 220 mls/hr Q12H IVPB 11/20/19 00:00 11/27/19 00:00 11/21/19 11:05 Zinc Oxide (Desitin) 1 applic FOUR TIMES A DAY TOPIC 11/04/19 14:00 12/04/19 13:59 11/21/19 08:26 Allergies: Coded Allergies: PENICILLINS (Verified Allergy, Unknown, 11/01/19) VANCOMYCIN (Verified Allergy, Unknown, 11/01/19) Uncoded Allergies: PENICI (Allergy, Unknown, 11/01/19) ROS Limited/Unobtainable: Yes All Systems: reviewed and negative except above Subjective s/p EGD today and PEG placed J was unsuccessful Family appealed DC to LTACH non verbal, chronic trach on TPN Objective Last Vital Signs Date Time Temp Pulse Resp B/P (MAP) Pulse Ox O2 Delivery O2 Flow Rate FiO2 11/21/19 11:05 100 21 40 11/21/19 08:00 98.2 106/48 (67) 100 11/21/19 08:00 Mechanical Ventilator General Appearance: no apparent distress EENT: other - trach Cardiovascular: normal rate, regular rhythm, systolic murmur Respiratory/Chest: rhonchi - left Abdomen: normal bowel sounds, non tender, soft Edema: other - +edema Laboratory Tests Test 11/20/19 14:00 11/20/19 18:55 11/21/19 02:54 11/21/19 04:44 White Blood Count 107.1 K/UL (4.8-10.8) *H 146.5 K/UL (4.8-10.8) *H Red Blood Count 2.28 M/UL (4.20-5.40) L 2.74 M/UL (4.20-5.40) L Hemoglobin 7.8 G/DL (12.0-16.0) L 8.0 G/DL (12.0-16.0) L Hematocrit 23.2 % (37.0-47.0) L 25.3 % (37.0-47.0) L Mean Corpuscular Volume 102 FL (80-99) #H 92 FL (80-99) # Mean Corpuscular Hemoglobin 34.2 PG (27.0-31.0) H 29.3 PG (27.0-31.0) Mean Corpuscular Hemoglobin Concent 33.6 G/DL (32.0-36.0) 31.7 G/DL (32.0-36.0) L Red Cell Distribution Width 17.0 % (11.6-14.8) H 15.5 % (11.6-14.8) H Platelet Count 39 K/UL (150-450) L 37 K/UL (150-450) L Mean Platelet Volume 14.1 FL (6.5-10.1) H 12.0 FL (6.5-10.1) H Neutrophils (%) (Auto) % (45.0-75.0) % (45.0-75.0) Lymphocytes (%) (Auto) % (20.0-45.0) % (20.0-45.0) Monocytes (%) (Auto) % (1.0-10.0) % (1.0-10.0) Eosinophils (%) (Auto) % (0.0-3.0) % (0.0-3.0) Basophils (%) (Auto) % (0.0-2.0) % (0.0-2.0) Differential Total Cells Counted 100 100 Neutrophils % (Manual) 10 % (45-75) L 10 % (45-75) L Lymphocytes % (Manual) 13 % (20-45) L 5 % (20-45) L Monocytes % (Manual) 9 % (1-10) 2 % (1-10) Eosinophils % (Manual) 1 % (0-3) 2 % (0-3) Basophils % (Manual) 0 % (0-2) 0 % (0-2) Blast Cells % 67 % (0-0) *H 81 % (0-0) *H Band Neutrophils 0 % (0-8) 0 % (0-8) Smudge Cells Occasional Occasional Platelet Estimate Decreased L Decreased L Platelet Morphology Normal Normal Polychromasia 1+ 1+ Hypochromasia 1+ 1+ Anisocytosis 1+ 1+ Sodium Level 139 MMOL/L (136-145) 140 MMOL/L (136-145) Potassium Level 4.4 MMOL/L (3.5-5.1) 3.9 MMOL/L (3.5-5.1) Chloride Level 106 MMOL/L (98-107) 106 MMOL/L (98-107) Carbon Dioxide Level 27 MMOL/L (21-32) 30 MMOL/L (21-32) Anion Gap 6 mmol/L (5-15) 4 mmol/L (5-15) L Blood Urea Nitrogen 26 mg/dL (7-18) H 28 mg/dL (7-18) H Creatinine 0.7 MG/DL (0.55-1.30) 0.8 MG/DL (0.55-1.30) Estimat Glomerular Filtration Rate > 60 mL/min (>60) > 60 mL/min (>60) Glucose Level 144 MG/DL (74-106) H 139 MG/DL (74-106) H Calcium Level 7.7 MG/DL (8.5-10.1) L 7.7 MG/DL (8.5-10.1) L Total Creatine Kinase 19 U/L (26-308) L Nucleated Red Blood Cells 1 /100 WBC POC Whole Blood Glucose Pending Intake and Output 11/20/19 11/21/19 19:00 07:00 Intake Total 624 ml 1433 ml Output Total 1000 ml 700 ml Balance -376 ml 733 ml IV Total 624 ml 1433 ml Output Urine Total 1000 ml 700 ml # Bowel Movements [address] J tube .PEG placed 11/20 feeeding started , on TPN Assessment/Plan Status: stable, unchanged Assessment/Plan Impression: sepsis on admission septic shock line sepsis acinectobacter bacteremia fungal cystitis 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 consideration of hydroxyurea per DR Amador due to leukocytosis s/p platelet tx one unit 11/14 prbc tx one unit 11/14 remove 1st PICC IVF NS plus TPN ltach bobby transfer d/w family. /son NOT in agreement. appealed DC. CM f/u abx per ID worsening wbc due AML flare microfungin on TPN. d/w GI unable to put PEG J tube earlier due to large whole KCL IV replete prn s/p Mg sulfate IV wound care f/u cx ID f/u electrolyte replete as needed enteral feeding ventilator pulm HHN dong pain control dc aricept, allopurinol DNAR status Fredirck Prince MD Internal Medicine [phone] time spent today 50 minutes stamp time on this note may NOT be the actual encounter time. Fredrick Prince MD Nov 21, 2019 11:41
[2019-11-21 12:00] VITALS: BP 117/54
[2019-11-21] MEDS ORDERED: Lidocaine 1% MPF 10mg/ml 5ml ONE (12:00)
--- NOTE | 2019-11-21 12:00 | Pre-Procedure Note/Attestation ---
Pre-Procedure Note/Attestation Complete Prior to Procedure Planned Procedure: not applicable Procedure Narrative: egd Indications for Procedure Pre-Operative Diagnosis: dysphagia Attestation I attest that I discussed the nature of the procedure; its benefits; risks and complications; and alternatives (and the risks and benefits of such alternatives ), prior to the procedure, with the patient (or the patient's legal claims customer service representative). I attest that, if there was a reasonable possibility of needing a blood transfusion, the patient (or the patient's legal claims customer service representative) was given the [facility] standardized written summary, pursuant to the [place] Blood Safety Act ([place] Health and Safety Code # 1645, as amended). I attest that I re-evaluated the patient just prior to the surgery and that there has been no change in the patient's H&P, except as documented below: Negro Reeves MD Nov 21, 2019 12:00
--- NOTE | 2019-11-21 12:00 | NUR ---
RD ASSESSMENT & RECOMMENDATIONS SEE CARE ACTIVITY FOR COMPLETE ASSESSMENT DAILY ESTIMATED NEEDS: Needs based on Critical care, wounds, 64kg 22-28 kcals/kg 7313-8431 total kcals 1.25-2 g protein/kg 80-128 g total protein 25-30 mL/kg 6761-7866 total fluid mLs NUTRITION DIAGNOSIS: Swallowing difficulty r/t respiratory status as evidenced by pt is trach and peg dep, currently NPO, on TPN, . CURRENT TF:NPO, on TPN PARENTERAL NUTRITION RECOMMENDATIONS: D/AA Rate: 70 IL Rate: 8 Total Rate: 78 Volume: 1872 % Dextrose: 18 % AA: 5.5 Energy (kcals/kg): 1781 Protein (g/kg protein): 92 Nonprotein KCALS: 1412 GIR (mg CHO/kg/min): 3.3 % Fat KCALS: 22 NCP: N Ratio: 96:1 TPN Comment: - Maintain current TPN: -> D18%, AA 5.5% @70ml/hr w/ 20%IL @8ml/hr - all 3:1 - TF at goal meets 100% est needs, provides 28 kcal/kg and 1.4g/kg pro. - GIR<5 - IL <30% ADDITIONAL RECOMMENDATIONS: 1) Per SNF: 65 inches (5'5"); 141 lbs (64.1kg) 2) Wound care: add MEIR BID via GT w/ TF order; hold w/ TPN 3) Monitor lytes, BG, and LFT's on TPN - check updated phos and mag - Watch LFT's, AST trending up, rec updated level .
[2019-11-21] MEDS ORDERED: NS 500ML IVPB ONE (12:20)
--- NOTE | 2019-11-21 13:10 | NUR ---
NURSE NOTES: Per Dr. Reeves, Ray 1.5 @ 10ml/h at this time, continue IVF and TPN this time, follow with MD in one hour.
--- NOTE | 2019-11-21 13:32 | Immediate Post-Op Evaluation ---
Immediate Post-Op Evalulation Immediate Post-Op Evalulation Procedure: egd, gtube to jtube Date of Evaluation: Nov 21, 2019 Time of Evaluation: 13:27 IV Fluids: 125ml 0.9ns Blood Products: none Estimated Blood Loss: negligible Blood Pressure Systolic: 111 Blood Pressure Diastolic: 57 Pulse Rate: 111 Respiratory Rate: 20 O2 Sat by Pulse Oximetry: 100 Temperature (Fahrenheit): 98.6 Pain Score (1-10): 0 Nausea: No Vomiting: No Complications none Patient Status: awake, reacts, patent Hydration Status: adequate Drug: Aylin Stern MD Nov 21, 2019 13:32
--- NOTE | 2019-11-21 13:34 | 48 Hour Post Anesthesia Eval ---
Post Anesthesia Evaluation Procedure: egd, gtube to jtube Date of Evaluation: Nov 21, 2019 Time of Evaluation: 13:29 Blood Pressure Systolic: 115 0: 57 Pulse Rate: 112 Respiratory Rate: 20 Temperature (Fahrenheit): 98.6 O2 Sat by Pulse Oximetry: 100 Airway: patent Nausea: No Vomiting: No Pain Intensity: 0 Hydration Status: adequate Cardiopulmonary Status: stable Mental Status/LOC: patient returned to baseline Post-Anesthesia Complications: none Follow-up care needed: N/A Aylin Mei MD Nov 21, 2019 13:34
--- NOTE | 2019-11-21 13:40 | Endoscopy Procedure Note ---
Endoscopy Procedure Note General Indication for Procedure: dysphagia Procedures Performed: EGD Operative Findings/Diagnosis: same Specimen: none Pt Tolerated Procedure Well: Yes Estimated Blood Loss: none Anesthesia Anesthesiologist: elvin Anesthesia: MAC Inserted Devices Implant(s) used?: No GI Core Measures 50 yrs or older w/o bx or poly: Not Applicable 10yrs. F/U recommended: Not Applicable Negro Reeves MD Nov 21, 2019 13:39
--- NOTE | 2019-11-21 14:00 | NUR ---
NURSE NOTES: No active s/s bleeding noticed at this time VS 111/56, HR 113, O2 sat 97%. Glucerna 1.2 @ 10ml/h running as prescribed at this time, will continue to monitor.
--- NOTE | 2019-11-21 14:04 | Pulmonology Progress Note ---
Martha Chandler HEALTH CLINICIAN 11/21/19 1404: Subjective ROS Limited/Unobtainable: Yes Constitutional: Reports: other - trach/vent ; Denies: fever Gastrointestinal/Abdominal: Denies: nausea, vomiting, diarrhea Psychiatric: Reports: other - NA Skin: Denies: rash Musculoskeletal: Denies: pain Allergies: Coded Allergies: PENICILLINS (Verified Allergy, Unknown, 11/01/19) VANCOMYCIN (Verified Allergy, Unknown, 11/01/19) Uncoded Allergies: PENICI (Allergy, Unknown, 11/01/19) All Systems: reviewed and negative except above Subjective no signs of resp distress on current vent settings leukocytosis up to 147 no fevers PICC exchanged 11/15 s/p EGD , removal of G tube 10/07 on TPN since 11/08 s/p 1 u PRNC and 1 u plateletpheresis 11/14 -> 11/11 PLT 37, Hgb 8.0 s/p PEG placement 11/20 Objective Last 24 Hour Vital Signs Date Time Temp Pulse Resp B/P (MAP) Pulse Ox O2 Delivery O2 Flow Rate FiO2 11/21/19 13:34 112 20 100 11/21/19 13:32 111 20 100 11/21/19 12:00 40 11/21/19 12:00 98.6 109 24 117/54 (75) 100 11/21/19 12:00 Mechanical Ventilator 11/21/19 12:00 Mechanical Ventilator 11/21/19 12:00 109 11/21/19 11:05 100 21 40 11/21/19 08:00 98.2 105 21 106/48 (67) 100 11/21/19 08:00 Mechanical Ventilator 11/21/19 08:00 104 11/21/19 08:00 40 11/21/19 07:10 106 23 40 11/21/19 04:00 98.4 106 24 101/59 (73) 100 11/21/19 04:00 40 11/21/19 04:00 Mechanical Ventilator 11/21/19 03:35 107 11/21/19 03:13 107 26 40 11/21/19 00:00 Mechanical Ventilator 11/21/19 00:00 40 11/21/19 00:00 99.8 110 24 106/51 (69) 100 11/20/19 23:32 115 11/20/19 23:22 116 26 40 11/20/19 20:00 40 11/20/19 20:00 98.1 118 22 115/79 (91) 100 11/20/19 20:00 Mechanical Ventilator 11/20/19 19:30 116 26 40 11/20/19 19:02 119 11/20/19 16:00 Mechanical Ventilator 11/20/19 16:00 99.1 104 19 142/67 (92) 98 11/20/19 16:00 40 11/20/19 15:20 106 11/20/19 14:43 109 22 40 Intake and Output 11/20/19 11/21/19 19:00 07:00 Intake Total 624 ml 1433 ml Output Total 1000 ml 700 ml Balance -376 ml 733 ml IV Total 624 ml 1433 ml Output Urine Total 1000 ml 700 ml # Bowel Movements 1 Objective General Appearance: no apparent distress, bedridden, vent dependent chronically ill appearing female Lines, tubes and drains: peripheral HEENT: normocephalic, atraumatic, anicteric, status post trach: Shiley #6, secretions small amount, thick consistency, white color , Vent AC 400-40%-20 PEEP 5 Respiratory/Chest: no respiratory distress, few scattered rhonchi Cardiovascular/Chest: regular rhythm, LUE PICC intact Abdomen: non tender, soft, distended, new PEG , Extremities: no edema, spastic LE Skin Exam: warm/dry, multiple DTI POA ( sacral, ankle foot, elbow) Neurologic: abnormal gait : bedridden, not responsive Musculoskeletal: atrophy - BLE Laboratory Tests 11/20/19 18:55: Sodium Level 139, Potassium Level 4.4, Chloride Level 106, Carbon Dioxide Level 27, Anion Gap 6, Blood Urea Nitrogen 26H, Creatinine 0.7, Estimat Glomerular Filtration Rate > 60, Glucose Level 144H, Calcium Level 7.7L, Total Creatine Kinase 19L 11/21/19 02:54: Sodium Level 140, Potassium Level 3.9, Chloride Level 106, Carbon Dioxide Level 30, Anion Gap 4L, Blood Urea Nitrogen 28H, Creatinine 0.8, Estimat Glomerular Filtration Rate > 60, Glucose Level 139H, Calcium Level 7.7L, White Blood Count 146.5*H, Red Blood Count 2.74L, Hemoglobin 8.0L, Hematocrit 25.3L, Mean Corpuscular Volume 92#, Mean Corpuscular Hemoglobin 29.3, Mean Corpuscular Hemoglobin Concent 31.7L, Red Cell Distribution Width 15.5H, Platelet Count 37L , Mean Platelet Volume 12.0H, Neutrophils (%) (Auto) , Lymphocytes (%) (Auto) , Monocytes (%) (Auto) , Eosinophils (%) (Auto) , Basophils (%) (Auto) , Differential Total Cells Counted 100, Neutrophils % (Manual) 10L, Lymphocytes % (Manual) 5L, Monocytes % (Manual) 2, Eosinophils % (Manual) 2, Basophils % ( Manual) 0, Blast Cells % 81*H, Band Neutrophils 0, Nucleated Red Blood Cells 1, Smudge Cells Occasional, Platelet Estimate DecreasedL, Platelet Morphology Normal, Polychromasia 1+, Hypochromasia 1+, Anisocytosis 1+ 11/21/19 04:44: POC Whole Blood Glucose [Pending] Current Medications Medications (Trade) Dose Ordered Sig/Inna Route PRN Reason Start Time Stop Time Status Last Admin Dose Admin Acetaminophen (Tylenol) 650 mg Q4H PRN GT fever 100.4, mild pain 11/10/19 10:00 12/01/19 23:14 Acetaminophen (Tylenol) 650 mg Q4H PRN ORAL Mild Pain (Pain Scale 1-3) 11/21/19 09:15 11/21/19 17:15 Acetaminophen (Tylenol) 650 mg Q4H PRN RECTAL Temp >100.5 11/08/19 21:30 12/08/19 21:29 11/18/19 21:43 Al Hydroxide/Mg Hydroxide (Mylanta) 15 ml Q1H PRN ORAL gi upset 11/21/19 09:15 11/21/19 17:15 Albuterol/ Ipratropium (Albuterol/ Ipratropium) 3 ml Q4H PRN HHN Shortness of Breath 11/20/19 08:02 11/25/19 08:01 Ascorbic Acid (Vitamin C) 500 mg DAILY GT 11/02/19 09:00 12/02/19 08:59 11/08/19 08:42 Atropine Sulfate (Atropine 0.4mg/ ml) 0.5 mg Q5M PRN IVP HR less than 45 BPM 11/21/19 09:15 11/21/19 17:15 Carbidopa/Levodopa (Sinemet 25/100) 2 tab QID GT 11/02/19 09:00 12/02/19 08:59 11/08/19 08:42 Chlorhexidine Gluconate (Josefa-Hex 2%) 1 applic DAILY@2000 TOPIC 11/15/19 20:00 02/13/20 19:59 11/20/19 20:01 Daptomycin 500 mg/ Sodium Chloride 50 ml @ 100 mls/hr Q24H IV 11/20/19 16:00 11/27/19 15:59 11/20/19 16:51 Dextrose 1,000 ml @ 0 mls/hr Q24H PRN IV PN interrupted or unavailable 11/09/19 20:00 12/09/19 19:59 Dextrose (Dextrose 50%) 25 ml Q30M PRN IV Hypoglycemia 11/09/19 20:00 02/07/20 19:59 Dextrose (Dextrose 50%) 50 ml Q30M PRN IV Hypoglycemia 11/09/19 20:00 02/07/20 19:59 Diphenhydramine HCl (Benadryl) 25 mg Q15M PRN IVP Itching 11/21/19 09:15 11/21/19 17:15 Docusate Sodium (Colace) 100 mg DAILY GT 11/02/19 09:00 12/02/19 08:59 11/08/19 08:41 Entacapone (Comtan) 400 mg THREE TIMES A DAY ORAL 11/10/19 13:00 12/02/19 17:59 Fat Emulsion Intravenous 192 ml/Amino Acids/ Electrolytes/ Dextrose 1,872 ml @ 78 mls/hr Q24H IV 11/11/19 20:00 12/11/19 19:59 11/20/19 19:19 Fentanyl Citrate (Sublimaze 100 mcg/2 mL) 25 mcg Q10M PRN IV Moderate Pain (Pain Scale 4-6) 11/21/19 09:15 11/21/19 17:15 Hydralazine HCl (Apresoline) 5 mg Q30M PRN IV SBP>160 /DBP>90 11/21/19 09:15 11/21/19 17:15 Insulin Aspart (NovoLOG) Q6HR SUBQ 11/06/19 12:00 02/04/20 11:59 11/21/19 11:36 Metoclopramide HCl (Reglan) 5 mg Q6H PRN IVP nausea or vomiting 11/01/19 23:15 12/01/19 23:14 11/02/19 12:51 Midazolam HCl (Versed 2mg/2ml vial) 1 mg Q15M PRN IVP For Anxiety 11/21/19 09:15 11/21/19 17:15 Multivitamins (Multivitamins W/ Minerals 15ml Liquid) 15 ml DAILY GT 11/02/19 09:00 12/02/19 08:59 11/08/19 08:42 Ondansetron HCl (Zofran) 4 mg Q1H PRN IVP Nausea & Vomiting 11/21/19 09:15 11/21/19 17:15 Ondansetron HCl (Zofran) 4 mg Q4H PRN IVP Nausea & Vomiting 11/01/19 23:15 12/01/19 23:14 Pantoprazole (Protonix) 40 mg DAILY IVP 11/05/19 09:00 12/05/19 08:59 11/21/19 08:27 Polyethylene Glycol (Miralax) 17 gm DAILY PRN GT Constipation 11/02/19 08:30 12/02/19 07:59 Polymyxin B Sulfate 185487 units/Dextrose 550 ml @ 550 mls/hr EVERY 12 HOURS IV 11/16/19 09:00 11/23/19 08:59 11/21/19 08:29 Quetiapine Fumarate (SEROqueL) 50 mg QHS GT 11/02/19 21:00 12/17/19 20:59 11/07/19 21:36 Sennosides (Senokot) 8.6 mg QHS GT 11/02/19 21:00 12/02/19 20:59 11/07/19 21:32 Tigecycline 50 mg/ Sodium Chloride 110 ml @ 220 mls/hr Q12H IVPB 11/20/19 00:00 11/27/19 00:00 11/21/19 11:05 Zinc Oxide (Desitin) 1 applic FOUR TIMES A DAY TOPIC 11/04/19 14:00 12/04/19 13:59 11/21/19 13:53 Assessment/Plan Assessment/Plan ASSESSMENT Chronic respiratory failure ventilator dependent with tracheostomy status Sepsis Bacteremia PICC infection with Klebsiella CRE Persistent fevers Hypotension, possible early shock - resolved Pneumonia, possible aspiration UTI with Klebsiella pneumonia CRE Hypotension, possible early shock - resolved 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), s/p 2 u PRBC Pancytopenia Leukocytosis Dysphagia, feeding by G-tube Advanced Parkinson's disease Severe protein calorie malnutrition Malfunctioning G tube ( inadvertently was removed), s/p EGD and removal of G tube, s/p new PEG 11/20 Multiple DTI , POA Ovarian mass consistent with neoplasm AML Suspected COVID-19 infection -ruled out Severe protein calorie malnutrition Functional quadriplegia E/lyte abnormalities PLAN OF CARE NAZARIO ( was for a short time in ICU, responded to IVC boluses and albumin boluses) ventilator support, trach care, pulm toilet ABG stable on current settings, keep as is and optimize as needed CXR 11/06 unchanged, SCX 11/05 Providencia , Klebsiella CRE, Pseudomonas CXR 11/09 no change: Tracheostomy remains in place. Basilar infiltrates not significantly changed. Small effusions unchanged CXR 11/12 -Persistent low lung volumes, may be related to shallow inspiration. Bilateral patchy interstitial and air space opacities, most prominent in the left lung base. Stable to mildly worsened compared to the prior exam and is concerning for pneumonia versus pulmonary edema. Possible small left pleural effusion. CXR 11/14 - Slight worsening of bilateral alveolar densities which could be worsening infiltrates and/or edema repeat CXR 11/17 no significant changes from before BCX 10/31 05/28 Staph haemolyticus, likely contaminant BCX 11/01 05/28 MRSA BCX 11/03 NGTD UCX Klebsiella CRE BCX 11/05 ACB MDR, Staph BCX 11/06 NGTD BCX 11/10 GNR UCX 11/10 + yeast BCX 11/13 NGTD abx as per ID recs leuk again with trend up , no fevers for the last 48 hrs RUE PICC was dc with tip cx and LUE PICC inserted by IR 11/15 PICC tip CX + Klebsiella CRE -CT A/P 11/09 BILATERAL SMALL PLEURAL EFFUSIONS AND DEPENDENT INFILTRATES. HUGE SEPTATED CYSTIC MASS ARISING FROM THE PELVIS EXTENDING INTO THE ABDOMEN MOST LIKELY OF OVARIAN ORIGIN. SMALL AMOUNT OF FREE FLUID ADJACENT TO THE HEPATIC AND SPLENIC EDGE WELL IN THE PELVIS. LEFT RENAL STONE. POSSIBLE SLUDGE OR NONCALCIFIED STONES LAYERING IN THE GALLBLADDER. LEFT LOWER QUADRANT STOMA. SEVERE DEGENERATIVE CHANGES AND DEXTROSCOLIOSIS OF THE SPINE. ANASARCA. ECHO with pEF 55%, no discrete vegetation seen COVID 11/01 NGT, Venous Duplex BLE NGT, apply SCD, monitor HH with goal to keep Hgb >7, trend PLT severe pancytopenia likely 2 to AML s/p 1 unit PLT-pheresis and 1 u PRBC leukocytosis 2 to sepsis and partially probably due to malignancy/AML and ovarian Ca gentle IVF replace lytes as needed, monitor volumes asp precautions GT was inadvertently removed s/p replacement 11/03 by GI started TF still leaking plan replacement with GJ tube but cancelled due to leukocytosis s/p EGD 11/07, old G tube removed, unable to place a new one due to a large site , currently on TPN strict aspir precautions s/p new PEG 11/20 TF as per GI and taper TPN if tolerates , fup with GI recs protein supplement as per RD recs continue SNF meds as per primary supportive care bowel regimen wound care as per surgeon recs overall prognosis grave, given sepsis and multiple comorbidities, with superimposed AML and ovarian mass, DNR/DNI status family declined transfer to [place] , bed is apparently no more available case discussed and evaluated by supervising physician Eugene Dan MD 11/21/192128: Subjective Allergies: Coded Allergies: PENICILLINS (Verified Allergy, Unknown, 11/01/19) VANCOMYCIN (Verified Allergy, Unknown, 11/01/19) Uncoded Allergies: PENICI (Allergy, Unknown, 11/01/19) Assessment/Plan Assessment/Plan Patient seen and examined with HEALTH CLINICIAN. Agree with above A&P as it reflects our joint deliberations. Martha Chandler NP Nov 21, 2019 14:04 Eugene Dan MD Nov 21, 2019 21:29
--- NOTE | 2019-11-21 14:44 | NUR ---
NURSE NOTES: Dr. Reeves made aware patient tolerating 10ml/h at this time, no residual, no s/s bleeding outside. No new order received at this time. Addendum: 11/21/19 at 1843 by SANJANA MARTINO RN Dr. Reeves made aware [facility] does not have Glucerna 1.5, instead of Glucerna 1.5, Glucerna 1.2 is administered. made aware.
--- NOTE | 2019-11-21 15:24 | NUR ---
CASE MANAGEMENT: REVIEW SI: ANEMIA . UTI . LARGE GASTROCUTANEOUS FISTULA JEJUNOSTOMY TUBE PLACEMENT 11/20 T 98.6 HR 109 RR 24 BP 106/48 SAT 100% MECH VENT FIO2 40 WBC 146 H/H 8.0/25.[address] 37 IS: DAPTOMYCIN IV Q24HR TYGACIL Q12HR POLYMYXIN B SULFATE IV Q12HR PROTONIX IV QD TPN IV Q24HR J TUBE FEEDING @ 10ML/HR STEP DOWN UNIT STATUS DCP: PATIENT IS FROM [facility]
[2019-11-21 16:00] VITALS: BP 119/55
--- NOTE | 2019-11-21 16:00 | Procedure Note ---
DATE OF PROCEDURE: 11/21/2019 SURGEON: Negro Reeves MD. REFERRING PHYSICIAN: Fredrick Prince MD. PROCEDURE: Upper endoscopy with G-tube placement. ANESTHESIA: Per Dr. Larson. INSTRUMENT: Olympus adult flexible upper endoscope. INDICATION: Dysphagia. The procedure, risks, benefits, and possible consequences, including hemorrhage, aspiration, perforation and infection, and alternative treatments, were explained to the patient/legal guardian by Dr. Negro Reeves and the patient/legal guardian understood and accepted these risks. PROCEDURE IN DETAIL: After informed consent was obtained and the patient was adequately sedated, Olympus upper endoscope was advanced from the mouth to the second portion of the duodenum and retroflexion was performed in the stomach. We first tried to put a J-tube for her, but there was a lot of angulation in the duodenum, the second portion of the duodenum to the third portion. There was tight angulation and we could not pass the tube successfully through, so at this time, we decided just to place a 22-Slovak G-tube replacement at the bedside, which was successfully placed. The patient tolerated the procedure very well without any complication. SUMMARY OF FINDINGS: Status post successful G-tube placement, 22-Slovak. PLAN: Start tube feedings slowly and if the patient does not have leakage, we are going to go up to the goal rate and stop TPN. I want to thank Dr. Prince for this kind referral. Negro Reeves M.D. DR: Danielle JOB#: [id number] CC: Fredrick Prince MD
--- NOTE | 2019-11-21 16:03 | Surgery Progress Note ---
Surgery Progress Note Subjective Additional Comments worsening ill appearing no n/v/f/c labs noted Objective Last 24 Hour Vital Signs Date Time Temp Pulse Resp B/P (MAP) Pulse Ox O2 Delivery O2 Flow Rate FiO2 11/21/19 13:34 112 20 100 11/21/19 13:32 111 20 100 11/21/19 12:00 40 11/21/19 12:00 98.6 109 24 117/54 (75) 100 11/21/19 12:00 Mechanical Ventilator 11/21/19 12:00 Mechanical Ventilator 11/21/19 12:00 109 11/21/19 11:05 100 21 40 11/21/19 08:00 98.2 105 21 106/48 (67) 100 11/21/19 08:00 Mechanical Ventilator 11/21/19 08:00 104 11/21/19 08:00 40 11/21/19 07:10 106 23 40 11/21/19 04:00 98.4 106 24 101/59 (73) 100 11/21/19 04:00 40 11/21/19 04:00 Mechanical Ventilator 11/21/19 03:35 107 11/21/19 03:13 107 26 40 11/21/19 00:00 Mechanical Ventilator 11/21/19 00:00 40 11/21/19 00:00 99.8 110 24 106/51 (69) 100 11/20/19 23:32 115 11/20/19 23:22 116 26 40 11/20/19 20:00 40 11/20/19 20:00 98.1 118 22 115/79 (91) 100 11/20/19 20:00 Mechanical Ventilator 11/20/19 19:30 116 26 40 11/20/19 19:02 119 I&O Intake and Output 11/20/19 11/21/19 19:00 07:00 Intake Total 624 ml 1433 ml Output Total 1000 ml 700 ml Balance -376 ml 733 ml IV Total 624 ml 1433 ml Output Urine Total 1000 ml 700 ml # Bowel Movements 1 Dressing: other Wound: other Drains: other Cardiovascular: RSR Respiratory: decreased breath sounds Abdomen: soft, non-tender, present bowel sounds Extremities: no tenderness, no cyanosis Laboratory Tests Test 11/20/19 18:55 11/21/19 02:54 11/21/19 04:44 Sodium Level 139 MMOL/L (136-145) 140 MMOL/L (136-145) Potassium Level 4.4 MMOL/L (3.5-5.1) 3.9 MMOL/L (3.5-5.1) Chloride Level 106 MMOL/L (98-107) 106 MMOL/L (98-107) Carbon Dioxide Level 27 MMOL/L (21-32) 30 MMOL/L (21-32) Anion Gap 6 mmol/L (5-15) 4 mmol/L (5-15) L Blood Urea Nitrogen 26 mg/dL (7-18) H 28 mg/dL (7-18) H Creatinine 0.7 MG/DL (0.55-1.30) 0.8 MG/DL (0.55-1.30) Estimat Glomerular Filtration Rate > 60 mL/min (>60) > 60 mL/min (>60) Glucose Level 144 MG/DL (74-106) H 139 MG/DL (74-106) H Calcium Level 7.7 MG/DL (8.5-10.1) L 7.7 MG/DL (8.5-10.1) L Total Creatine Kinase 19 U/L (26-308) L White Blood Count 146.5 K/UL (4.8-10.8) *H Red Blood Count 2.74 M/UL (4.20-5.40) L Hemoglobin 8.0 G/DL (12.0-16.0) L Hematocrit 25.3 % (37.0-47.0) L Mean Corpuscular Volume 92 FL (80-99) # Mean Corpuscular Hemoglobin 29.3 PG (27.0-31.0) Mean Corpuscular Hemoglobin Concent 31.7 G/DL (32.0-36.0) L Red Cell Distribution Width 15.5 % (11.6-14.8) H Platelet Count 37 K/UL (150-450) L Mean Platelet Volume 12.0 FL (6.5-10.1) H Neutrophils (%) (Auto) % (45.0-75.0) Lymphocytes (%) (Auto) % (20.0-45.0) Monocytes (%) (Auto) % (1.0-10.0) Eosinophils (%) (Auto) % (0.0-3.0) Basophils (%) (Auto) % (0.0-2.0) Differential Total Cells Counted 100 Neutrophils % (Manual) 10 % (45-75) L Lymphocytes % (Manual) 5 % (20-45) L Monocytes % (Manual) 2 % (1-10) Eosinophils % (Manual) 2 % (0-3) Basophils % (Manual) 0 % (0-2) Blast Cells % 81 % (0-0) *H Band Neutrophils 0 % (0-8) Nucleated Red Blood Cells 1 /100 WBC Smudge Cells Occasional Platelet Estimate Decreased L Platelet Morphology Normal Polychromasia 1+ Hypochromasia 1+ Anisocytosis 1+ POC Whole Blood Glucose Pending Plan Problems: (1) Decubitus skin ulcer Assessment & Plan: Pt presented on admission with multiple Pressure Injuries, and contractures. Large Soft Mass noted to lateral R chest ,just inferior to Breast.Soft mass that uis violaceous and denuded. Unstageable Pressure injury R thoracic. Wound presents as partially opened DTPI( L)6cm x (W)8.5cm. 95% Soft eschar flap,5% dee. Marginal erythema along borders In addition scattered linear and purple area periwound. Full thickness stage 4 Sacral Pressure Injury(L)9.3cm x (W)8.7cm. Base of wound is 95% necrotic,but bone is palpable.Mild odor noted. No exudate noted. Non-blanching erythema periwound. Unstageable Pressure Injury R trochanter(L)3.5cm x (W)4.2cm. Base of wound is 90 % soft eschar, 10% pink epithelial. Edges adherent to base of wound .No erythema induration or fluctuance periwound. Unstageable Pressure injury R Ischium(L)3.5cm x (W)2.5cm. Dry eschar at base of wound, edges are adherent with surrounding pink epithelial. No erythema or induration periwound. DTPI L trochanter(L)4cm x (W)1cm. Stable dry eschar L Hallux(L)1.6cm x (W)2cm.NO erythema fluctuance or induration periwound. L 1st metatarsal TMA noted. Stable dry eschar distal/lateral L foot (L)1.5cm x (W)3cm. No erythema, induration or fluctuance periwound. DTPI noted to plantar L foot.(L)0.9cm x (W)0.9cm. Base of wound is fluctuant, purple with maroon borders. Unstageable Pressure injury L lateral Malleolus. Stable dry eschar noted.No erythema or induration periwound. L heel is boggy with non-blanching erythema. Unstageable Pressure injury R Hallux and plantar aspect(L)3.5cm x (W)3.4cm. Soft eschar at base of wound with marginal erythema along borders. R heel is boggy with Non-Blanching erythema. Unstageable Presure injury distal/Lateral R foot . Stable dry eschar noted . No erythema of fluctuance periwound. Tx.Plan: Cleanse Sacral Wound with Saline. Loosely pack with Therahoney impregnated Kerlix.Applpy Moisture Barrier Paste periwound. Cover with Optifoam drsg. Change Daily and prn. Cleanse Soft Mass R chest with Saline. Cover with Optifoam drsg. Change Daily and prn. Cleanse wounds R trochanter, R Ischium with Saline. Apply Moisture Barrier Paste.Cover with Optifoam drsg. Change every 3 days and prn. Apply Moisture Barrier to L trochanter. Cvoer with Optifoam drsg. Change every 3 days and prn. Apply Betadine to wounds R and L foot. Cover each wound with Optifoam drsg. Changee very 3 days and prn. Apply Cavilon Skin Barrier to both heels. Cover each heel with Optifoam drsg. Change every 7 days and prn. APM/ANA Mattress overlay. turn q2h nutritional optimization (2) Malnutrition Assessment & Plan: DAILY ESTIMATED NEEDS: Needs based on Critical care, wounds, 64kg 22-28 kcals/kg 0188-3707 total kcals 1.25-2 g protein/kg 80-128 g total protein 25-30 mL/kg 9770-3636 total fluid mLs NUTRITION DIAGNOSIS: Swallowing difficulty r/t respiratory status as evidenced by pt is trach and peg dep, currently NPO, on TPN, . CURRENT TF:NPO, on TPN PARENTERAL NUTRITION RECOMMENDATIONS: D/AA Rate: 70 IL Rate: 8 Total Rate: 78 Volume: 1872 % Dextrose: 18 % AA: 5.5 Energy (kcals/kg): 1781 Protein (g/kg protein): 92 Nonprotein KCALS: 1412 GIR (mg CHO/kg/min): 3.3 % Fat KCALS: 22 NCP: N Ratio: 96:1 TPN Comment: - Maintain current TPN: -> D18%, AA 5.5% @70ml/hr w/ 20%IL @8ml/hr - all 3:1 - TF at goal meets 100% est needs, provides 28 kcal/kg and 1.4g/kg pro. - GIR<5 - IL <30% ADDITIONAL RECOMMENDATIONS: 1) Per SNF: 65 inches (5'5"); 141 lbs (64.1kg) 2) Wound care: add MEIR BID via GT w/ TF order; hold w/ TPN 3) Monitor lytes, BG, and LFT's on TPN - check updated phos and mag - Watch LFT's, AST trending up, rec updated level (3) Anemia Assessment & Plan: transfused trend labs no active bleeding stool study GI eval (4) UTI (urinary tract infection) (5) Tracheostomy dependence Assessment & Plan: Findings: The left hemidiaphragm is elevated. Atelectatic changes are present in the left lung base. There is minimal right basilar atelectasis. No definite infiltrates. There is a tracheostomy. Impression: Elevated left hemidiaphragm with considerable left basilar atelectasis. Less extensive right basilar atelectasis. Inspiration is suboptimal. Interim development of opacity of the left mid and lower lung. The left hemidiaphragm is obscured. Right lung is probably clear , although there is crowding of bronchovascular lung volumes. Tracheostomy remains. Impression: Since 11/01/2019, interim development of left mid and lower lung infiltrates versus edema and possibly pleural fluid Juan Houser Nov 21, 2019 16:03
[2019-11-21] MEDS: DAPTOmycin 500 MG in NS 50 ML IV SCH (16:51)
--- NOTE | 2019-11-21 17:25 | Diagnostic Imaging Report ---
Indications: Needs long-term IV access Technique: Ultrasound confirms patent compressible basilic vein. Total sterile technique, including sterile probe cover and sterile gel, hat, mask,, sterile gown, large sterile drape, and preparation with 2% chlorhexidine utilized. Local anesthesia with 1% lidocaine. Under real-time ultrasound guidance, a puncture of the basilic vein using 21-gauge needle, passage 0.018 guidewire, exchange for 5 Nauruan peel-away sheath. 5 Nauruan Bard dual-lumen power PICC cut to 35 cm. It was inserted through the peel-away sheath. Peel-away sheath and guidewire removed. Catheter fixed to the skin. Both catheter ports aspirated and flushed. Patient tolerated procedure well, without immediate complication. Subsequent digital radiograph documents satisfactory catheter tip position, at the mid SVC. Impression: Successful bedside placement of dual lumen right-sided basilic PICC under sonographic guidance, as described above.
--- NOTE | 2019-11-21 18:53 | NUR ---
"NURSE NOTES: Received patient from SRIKANTH Cruz. Patient in bed with eyes open- obtunded. No signs or symptoms of acute cardiac or respiratory distress noted, pt. appears to be tolerating current vent settings as ordered: A/C 20 | TV 400 | FiO2 40% | Peep 5- No respiratory distress noted. Patient has G tube feeding Glucerna 1.2 at 10cc/hr- at goal- no residual noted, Bailey intact and draining to gravity. Patient appears to be clean and dry. Skin precautions observed, Noted with left upper arm PICC double lumen running TPN at 78 mL/hour, Safety measures continued, Bed in lowest position and locked in place. HOB elevated- aspiration precautions observed, Call light within reach. Side rails up x3. Will continue to monitor and with plan of care."
--- NOTE | 2019-11-21 19:08 | NUR ---
HAND-OFF: Report given to SRIKANTH Ellison. Endorsed plan of care.
--- NOTE | 2019-11-21 19:22 | Infectious Diseases Prog Note ---
Assessment/Plan Assessment/Plan ASSESSMENT AND PLAN: 1. mrsa bacteremia, acinetobacter bacteremia, weights and measures inspector bacteremia, klebsiella uti ( cre) sepsis, shock, fevers, leukocytosis, sacral wound infection, AML, + blasts klebsiella(cre) pna/providencia(esbl) pna/pseudomonas pna fungal uti, ? fungemia, TPN ? line infection - picc placed 11/02/19, repeat blood cultures show acinetobacter line changed - cath tip with klebsiella - CRE - sensitive to tygacil - discontinue daptomycin (11/01), polymyxin (11/04), tyacil started (11/18) - recheck ua/uc, surveillance blood cultures negative - picc line changed 11/16/19 - TTE - no vegetations identified - monitor labs and chest x-ray - wound management per surgery - leukocytosis maybe secondary to AML blast crises/flare - fevers better 2. Trach, vent respiratory failure. 3. Dysphagia, G-tube. 4. Anemia. 5. Thrombocytopenia - severe 6. Leukocytosis. 7. Malnutrition. 8. Ovarian mass with neoplasm. 9. Parkinson's. 10. Dementia. 11. Skin care per Surgery and protocol. 12. Allergies to penicillin, vancomycin. 13. Social history is negative. 14. Family history is noncontributory. 15. MAR was noted. 16. Case was discussed with RN. 17. Continue treatment per primary consultants. 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 Subjective Constitutional: Denies: fever Respiratory: Denies: shortness of breath Cardiovascular: Denies: chest pain Gastrointestinal/Abdominal: Denies: nausea, vomiting Genitourinary: Reports: other - + dong Neurologic: Reports: other - lethargic, weak Skin: Denies: rash Hematologic: Denies: bleeding Musculoskeletal: Denies: pain Allergies: Coded Allergies: PENICILLINS (Verified Allergy, Unknown, 11/01/19) VANCOMYCIN (Verified Allergy, Unknown, 11/01/19) Uncoded Allergies: PENICI (Allergy, Unknown, 11/01/19) Objective Last 24 Hour Vital Signs Date Time Temp Pulse Resp B/P (MAP) Pulse Ox O2 Delivery O2 Flow Rate FiO2 11/21/19 16:00 98.8 110 22 119/55 (76) 93 11/21/19 16:00 111 11/21/19 16:00 40 11/21/19 16:00 Mechanical Ventilator 11/21/19 15:05 113 26 40 11/21/19 13:34 112 20 100 11/21/19 13:32 111 20 100 11/21/19 12:00 40 11/21/19 12:00 98.6 109 24 117/54 (75) 100 11/21/19 12:00 Mechanical Ventilator 11/21/19 12:00 Mechanical Ventilator 11/21/19 12:00 109 11/21/19 11:05 100 21 40 11/21/19 08:00 98.2 105 21 106/48 (67) 100 11/21/19 08:00 Mechanical Ventilator 11/21/19 08:00 104 11/21/19 08:00 40 11/21/19 07:10 106 23 40 11/21/19 04:00 98.4 106 24 101/59 (73) 100 11/21/19 04:00 40 11/21/19 04:00 Mechanical Ventilator 11/21/19 03:35 107 11/21/19 03:13 107 26 40 11/21/19 00:00 Mechanical Ventilator 11/21/19 00:00 40 11/21/19 00:00 99.8 110 24 106/51 (69) 100 11/20/19 23:32 115 11/20/19 23:22 116 26 40 11/20/19 20:00 40 11/20/19 20:00 98.1 118 22 115/79 (91) 100 11/20/19 20:00 Mechanical Ventilator 11/20/19 19:30 116 26 40 Height (Feet): 5 Height (Inches): 3.00 Weight (Pounds): 239 General Appearance: no acute distress HEENT: normocephalic, atraumatic, anicteric, no JVD, status post trach Respiratory/Chest: crackles/rales, rhonchi - bilaterally Cardiovascular: normal rate, regular rhythm, no gallop/murmur, no JVD Abdomen: normal bowel sounds, soft, non tender, no organomegaly, non distended Genitourinary: other - + dong - urine cloudy Extremities: no cyanosis Skin: no rash 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 Interval placement of right PICC line tip to the mid SVC. 2. Hypoventilatory lungs. Bibasilar atelectasis/consolidations, similar to prior study. 3. Probable bilateral pleural effusions. Chest x-ray - 11/07/19- Procedure: XRAY Chest 1v Procedure: XRAY Chest 1v Reason for study: Shortness of breath. Comparison films: 11/05/2019. FINDINGS: Tracheostomy and right PICC line remain in place. There is limited inspiration with bibasilar densities unchanged. Cardiac and mediastinal silhouette are within normal limits. No large effusion seen The bony thorax appear unremarkable. IMPRESSION: NO SIGNIFICANT CHANGE COMPARED TO PREVIOUS EXAM. CT abdomen and pelvis: IMPRESSION: BILATERAL SMALL PLEURAL EFFUSIONS AND DEPENDENT INFILTRATES. HUGE SEPTATED CYSTIC MASS ARISING FROM THE PELVIS EXTENDING INTO THE ABDOMEN MOST LIKELY OF OVARIAN ORIGIN. SMALL AMOUNT OF FREE FLUID ADJACENT TO THE HEPATIC AND SPLENIC EDGE WELL IN THE PELVIS. LEFT RENAL STONE. POSSIBLE SLUDGE OR NONCALCIFIED STONES LAYERING IN THE GALLBLADDER. LEFT LOWER QUADRANT STOMA. SEVERE DEGENERATIVE CHANGES AND DEXTROSCOLIOSIS OF THE SPINE. ANASARCA. Abdominal US: IMPRESSION: 1. Sludge and possible small stones in the gallbladder. No gallbladder wall thickening or pericholecystic fluid. 2. Ascites. 3. Small right pleural effusion. Chest x-ray - 11/10/19 - Procedure: XRAY Chest 1v Procedure: XRAY Chest 1v Reason for study: Reason For Exam: SOB Comparison films: 11/07/2019. FINDINGS: Tracheostomy remains in place. Basilar infiltrates not significantly changed. Small effusions unchanged. Cardiac silhouette stable. The bony thorax appear unremarkable. IMPRESSION: NO SIGNIFICANT CHANGE COMPARED TO PREVIOUS EXAM Chest x-ray - 11/18/19 - Procedure: XRAY Chest 1v Procedure: XRAY Chest 1v Reason for study: Reason For Exam: SOB Comparison films: 11/15/2019. FINDINGS: Tracheostomy remains in place. Bilateral congestion and edema are unchanged. Cardiac silhouette is obscured. Effusions unchanged. The bony thorax appear unremarkable. IMPRESSION: NO SIGNIFICANT CHANGE COMPARED TO PREVIOUS EXAM. Microbiology Date/Time Source Procedure Growth Status 11/14/19 14:05 Blood Blood Culture - Final NO GROWTH AFTER 5 DAYS Complete 11/06/19 10:04 Sputum Induced Gram Stain - Final Complete 11/06/19 10:04 Sputum Culture - Final Providencia Stuartii K.pneumoniae Carbapenem Resist Pseudomonas Aeruginosa Complete 11/13/19 04:00 Indwelling Cath Urine Culture - Final Aundrea Tropicalis Complete 11/16/19 16:00 Arm Right Catheter Tip Culture - Final K.pneumoniae Carbapenem Resist Complete Laboratory Tests Test 11/21/19 02:54 11/21/19 04:44 White Blood Count 146.5 K/UL (4.8-10.8) *H Red Blood Count 2.74 M/UL (4.20-5.40) L Hemoglobin 8.0 G/DL (12.0-16.0) L Hematocrit 25.3 % (37.0-47.0) L Mean Corpuscular Volume 92 FL (80-99) # Mean Corpuscular Hemoglobin 29.3 PG (27.0-31.0) Mean Corpuscular Hemoglobin Concent 31.7 G/DL (32.0-36.0) L Red Cell Distribution Width 15.5 % (11.6-14.8) H Platelet Count 37 K/UL (150-450) L Mean Platelet Volume 12.0 FL (6.5-10.1) H Neutrophils (%) (Auto) % (45.0-75.0) Lymphocytes (%) (Auto) % (20.0-45.0) Monocytes (%) (Auto) % (1.0-10.0) Eosinophils (%) (Auto) % (0.0-3.0) Basophils (%) (Auto) % (0.0-2.0) Differential Total Cells Counted 100 Neutrophils % (Manual) 10 % (45-75) L Lymphocytes % (Manual) 5 % (20-45) L Monocytes % (Manual) 2 % (1-10) Eosinophils % (Manual) 2 % (0-3) Basophils % (Manual) 0 % (0-2) Blast Cells % 81 % (0-0) *H Band Neutrophils 0 % (0-8) Nucleated Red Blood Cells 1 /100 WBC Smudge Cells Occasional Platelet Estimate Decreased L Platelet Morphology Normal Polychromasia 1+ Hypochromasia 1+ Anisocytosis 1+ Sodium Level 140 MMOL/L (136-145) Potassium Level 3.9 MMOL/L (3.5-5.1) Chloride Level 106 MMOL/L (98-107) Carbon Dioxide Level 30 MMOL/L (21-32) Anion Gap 4 mmol/L (5-15) L Blood Urea Nitrogen 28 mg/dL (7-18) H Creatinine 0.8 MG/DL (0.55-1.30) Estimat Glomerular Filtration Rate > 60 mL/min (>60) Glucose Level 139 MG/DL (74-106) H Calcium Level 7.7 MG/DL (8.5-10.1) L POC Whole Blood Glucose Pending Current Medications Medications (Trade) Dose Ordered Sig/Inna Route PRN Reason Start Time Stop Time Status Last Admin Dose Admin Acetaminophen (Tylenol) 650 mg Q4H PRN GT fever 100.4, mild pain 11/10/19 10:00 12/01/19 23:14 Acetaminophen (Tylenol) 650 mg Q4H PRN RECTAL Temp >100.5 11/08/19 21:30 12/08/19 21:29 11/18/19 21:43 Albuterol/ Ipratropium (Albuterol/ Ipratropium) 3 ml Q4H PRN HHN Shortness of Breath 11/20/19 08:02 11/25/19 08:01 Ascorbic Acid (Vitamin C) 500 mg DAILY GT 11/02/19 09:00 12/02/19 08:59 11/08/19 08:42 Carbidopa/Levodopa (Sinemet 25/100) 2 tab QID GT 11/02/19 09:00 12/02/19 08:59 11/21/19 17:29 Chlorhexidine Gluconate (Josefa-Hex 2%) 1 applic DAILY@2000 TOPIC 11/15/19 20:00 02/13/20 19:59 11/20/19 20:01 Daptomycin 500 mg/ Sodium Chloride 50 ml @ 100 mls/hr Q24H IV 11/20/19 16:00 11/27/19 15:59 11/21/19 16:51 Dextrose 1,000 ml @ 0 mls/hr Q24H PRN IV PN interrupted or unavailable 11/09/19 20:00 12/09/19 19:59 Dextrose (Dextrose 50%) 25 ml Q30M PRN IV Hypoglycemia 11/09/19 20:00 02/07/20 19:59 Dextrose (Dextrose 50%) 50 ml Q30M PRN IV Hypoglycemia 11/09/19 20:00 02/07/20 19:59 Docusate Sodium (Colace) 100 mg DAILY GT 11/02/19 09:00 12/02/19 08:59 11/08/19 08:41 Entacapone (Comtan) 400 mg THREE TIMES A DAY ORAL 11/10/19 13:00 12/02/19 17:59 11/21/19 17:28 Fat Emulsion Intravenous 192 ml/Amino Acids/ Electrolytes/ Dextrose 1,872 ml @ 78 mls/hr Q24H IV 11/11/19 20:00 12/11/19 19:59 11/20/19 19:19 Insulin Aspart (NovoLOG) Q6HR SUBQ 11/06/19 12:00 02/04/20 11:59 11/21/19 11:36 Metoclopramide HCl (Reglan) 5 mg Q6H PRN IVP nausea or vomiting 11/01/19 23:15 12/01/19 23:14 11/02/19 12:51 Multivitamins (Multivitamins W/ Minerals 15ml Liquid) 15 ml DAILY GT 11/02/19 09:00 12/02/19 08:59 11/08/19 08:42 Ondansetron HCl (Zofran) 4 mg Q4H PRN IVP Nausea & Vomiting 11/01/19 23:15 12/01/19 23:14 Pantoprazole (Protonix) 40 mg DAILY IVP 11/05/19 09:00 12/05/19 08:59 11/21/19 08:27 Polyethylene Glycol (Miralax) 17 gm DAILY PRN GT Constipation 11/02/19 08:30 12/02/19 07:59 Polymyxin B Sulfate [id number] units/Dextrose 550 ml @ 550 mls/hr EVERY 12 HOURS IV 11/16/19 09:00 11/23/19 08:59 11/21/19 08:29 Quetiapine Fumarate (SEROqueL) 50 mg QHS GT 11/02/19 21:00 12/17/19 20:59 11/07/19 21:36 Sennosides (Senokot) 8.6 mg QHS GT 11/02/19 21:00 12/02/19 20:59 11/07/19 21:32 Tigecycline 50 mg/ Sodium Chloride 110 ml @ 220 mls/hr Q12H IVPB 11/20/19 00:00 11/27/19 00:00 11/21/19 11:05 Zinc Oxide (Desitin) 1 applic FOUR TIMES A DAY TOPIC 11/04/19 14:00 12/04/19 13:59 11/21/19 17:30 González Yadav MD Nov 21, 2019 19:22
[2019-11-21] MEDS: TPN IV SCH (19:26)
[2019-11-21] MEDS: FAT EMULSION 20% IV SCH (19:26)
--- NOTE | 2019-11-21 19:26 | Infectious Diseases Prog Note ---
Assessment/Plan Assessment/Plan ASSESSMENT AND PLAN: 1. mrsa bacteremia, acinetobacter bacteremia, drafter commercial bacteremia, klebsiella uti ( cre) sepsis, shock, fevers, leukocytosis, sacral wound infection, AML, + blasts klebsiella(cre) pna/providencia(esbl) pna/pseudomonas pna fungal uti, ? fungemia, TPN ? line infection - picc placed 11/02/19, repeat blood cultures show acinetobacter line changed - cath tip with klebsiella - CRE - sensitive to tygacil - daptomycin (11/01), polymyxin (11/04), tyacil started (11/18) - recheck ua/uc, surveillance blood cultures negative - picc line changed 11/16/19 - TTE - no vegetations identified - monitor labs and chest x-ray - wound management per surgery - leukocytosis maybe secondary to AML blast crises/flare - fevers better 2. Trach, vent respiratory failure. 3. Dysphagia, G-tube. 4. Anemia. 5. Thrombocytopenia - severe 6. Leukocytosis. 7. Malnutrition. 8. Ovarian mass with neoplasm. 9. Parkinson's. 10. Dementia. 11. Skin care per Surgery and protocol. 12. Allergies to penicillin, vancomycin. 13. Social history is negative. 14. Family history is noncontributory. 15. MAR was noted. 16. Case was discussed with RN. 17. Continue treatment per primary consultants. 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 Subjective Constitutional: Reports: other - + vent ; Denies: fever HEENT: Reports: congestion Respiratory: Reports: shortness of breath Cardiovascular: Reports: other - no pressors Gastrointestinal/Abdominal: Denies: nausea, vomiting Genitourinary: Reports: other - + dong Neurologic: Reports: weakness Psychiatric: Reports: other - NA Skin: Denies: rash Hematologic: Denies: bleeding Musculoskeletal: Reports: other - NA Allergies: Coded Allergies: PENICILLINS (Verified Allergy, Unknown, 11/01/19) VANCOMYCIN (Verified Allergy, Unknown, 11/01/19) Uncoded Allergies: PENICI (Allergy, Unknown, 11/01/19) Objective Last 24 Hour Vital Signs Date Time Temp Pulse Resp B/P (MAP) Pulse Ox O2 Delivery O2 Flow Rate FiO2 11/21/19 16:00 98.8 110 22 119/55 (76) 93 11/21/19 16:00 111 11/21/19 16:00 40 11/21/19 16:00 Mechanical Ventilator 11/21/19 15:05 113 26 40 11/21/19 13:34 112 20 100 11/21/19 13:32 111 20 100 11/21/19 12:00 40 11/21/19 12:00 98.6 109 24 117/54 (75) 100 11/21/19 12:00 Mechanical Ventilator 11/21/19 12:00 Mechanical Ventilator 11/21/19 12:00 109 11/21/19 11:05 100 21 40 11/21/19 08:00 98.2 105 21 106/48 (67) 100 11/21/19 08:00 Mechanical Ventilator 11/21/19 08:00 104 11/21/19 08:00 40 11/21/19 07:10 106 23 40 11/21/19 04:00 98.4 106 24 101/59 (73) 100 11/21/19 04:00 40 11/21/19 04:00 Mechanical Ventilator 11/21/19 03:35 107 11/21/19 03:13 107 26 40 11/21/19 00:00 Mechanical Ventilator 11/21/19 00:00 40 11/21/19 00:00 99.8 110 24 106/51 (69) 100 11/20/19 23:32 115 11/20/19 23:22 116 26 40 11/20/19 20:00 40 11/20/19 20:00 98.1 118 22 115/79 (91) 100 11/20/19 20:00 Mechanical Ventilator 11/20/19 19:30 116 26 40 Height (Feet): 5 Height (Inches): 3.00 Weight (Pounds): 239 General Appearance: other - trach and vent HEENT: normocephalic, atraumatic, anicteric, no JVD, status post trach Respiratory/Chest: crackles/rales, rhonchi - bilaterally Cardiovascular: normal rate, regular rhythm, no gallop/murmur, no JVD Abdomen: normal bowel sounds, soft, non tender, no organomegaly, non distended Genitourinary: other - + dong - urine cloudy Extremities: no cyanosis Skin: no rash Neurologic/Psychiatric: motor weakness, other - lethargic and weak Lymphatic: no neck adenopathy Musculoskeletal: no effusion Chest x-ray - 11/05/19 - IMPRESSION: 1. Interval placement of right PICC line tip to the mid SVC. 2. Hypoventilatory lungs. Bibasilar atelectasis/consolidations, similar to prior study. 3. Probable bilateral pleural effusions. Chest x-ray - 11/07/19- Procedure: XRAY Chest 1v Procedure: XRAY Chest 1v Reason for study: Shortness of breath. Comparison films: 11/05/2019. FINDINGS: Tracheostomy and right PICC line remain in place. There is limited inspiration with bibasilar densities unchanged. Cardiac and mediastinal silhouette are within normal limits. No large effusion seen The bony thorax appear unremarkable. IMPRESSION: NO SIGNIFICANT CHANGE COMPARED TO PREVIOUS EXAM. CT abdomen and pelvis: IMPRESSION: BILATERAL SMALL PLEURAL EFFUSIONS AND DEPENDENT INFILTRATES. HUGE SEPTATED CYSTIC MASS ARISING FROM THE PELVIS EXTENDING INTO THE ABDOMEN MOST LIKELY OF OVARIAN ORIGIN. SMALL AMOUNT OF FREE FLUID ADJACENT TO THE HEPATIC AND SPLENIC EDGE WELL IN THE PELVIS. LEFT RENAL STONE. POSSIBLE SLUDGE OR NONCALCIFIED STONES LAYERING IN THE GALLBLADDER. LEFT LOWER QUADRANT STOMA. SEVERE DEGENERATIVE CHANGES AND DEXTROSCOLIOSIS OF THE SPINE. ANASARCA. Abdominal US: IMPRESSION: 1. Sludge and possible small stones in the gallbladder. No gallbladder wall thickening or pericholecystic fluid. 2. Ascites. 3. Small right pleural effusion. Chest x-ray - 11/10/19 - Procedure: XRAY Chest 1v Procedure: XRAY Chest 1v Reason for study: Reason For Exam: SOB Comparison films: 11/07/2019. FINDINGS: Tracheostomy remains in place. Basilar infiltrates not significantly changed. Small effusions unchanged. Cardiac silhouette stable. The bony thorax appear unremarkable. IMPRESSION: NO SIGNIFICANT CHANGE COMPARED TO PREVIOUS EXAM Chest x-ray - 11/18/19 - Procedure: XRAY Chest 1v Procedure: XRAY Chest 1v Reason for study: Reason For Exam: SOB Comparison films: 11/15/2019. FINDINGS: Tracheostomy remains in place. Bilateral congestion and edema are unchanged. Cardiac silhouette is obscured. Effusions unchanged. The bony thorax appear unremarkable. IMPRESSION: NO SIGNIFICANT CHANGE COMPARED TO PREVIOUS EXAM. Microbiology Date/Time Source Procedure Growth Status 11/14/19 14:05 Blood Blood Culture - Final NO GROWTH AFTER 5 DAYS Complete 11/06/19 10:04 Sputum Induced Gram Stain - Final Complete 11/06/19 10:04 Sputum Culture - Final Providencia Stuartii K.pneumoniae Carbapenem Resist Pseudomonas Aeruginosa Complete 11/13/19 04:00 Indwelling Cath Urine Culture - Final Aundrea Tropicalis Complete 11/16/19 16:00 Arm Right Catheter Tip Culture - Final K.pneumoniae Carbapenem Resist Complete Laboratory Tests Test 11/21/19 02:54 11/21/19 04:44 White Blood Count 146.5 K/UL (4.8-10.8) *H Red Blood Count 2.74 M/UL (4.20-5.40) L Hemoglobin 8.0 G/DL (12.0-16.0) L Hematocrit 25.3 % (37.0-47.0) L Mean Corpuscular Volume 92 FL (80-99) # Mean Corpuscular Hemoglobin 29.3 PG (27.0-31.0) Mean Corpuscular Hemoglobin Concent 31.7 G/DL (32.0-36.0) L Red Cell Distribution Width 15.5 % (11.6-14.8) H Platelet Count 37 K/UL (150-450) L Mean Platelet Volume 12.0 FL (6.5-10.1) H Neutrophils (%) (Auto) % (45.0-75.0) Lymphocytes (%) (Auto) % (20.0-45.0) Monocytes (%) (Auto) % (1.0-10.0) Eosinophils (%) (Auto) % (0.0-3.0) Basophils (%) (Auto) % (0.0-2.0) Differential Total Cells Counted 100 Neutrophils % (Manual) 10 % (45-75) L Lymphocytes % (Manual) 5 % (20-45) L Monocytes % (Manual) 2 % (1-10) Eosinophils % (Manual) 2 % (0-3) Basophils % (Manual) 0 % (0-2) Blast Cells % 81 % (0-0) *H Band Neutrophils 0 % (0-8) Nucleated Red Blood Cells 1 /100 WBC Smudge Cells Occasional Platelet Estimate Decreased L Platelet Morphology Normal Polychromasia 1+ Hypochromasia 1+ Anisocytosis 1+ Sodium Level 140 MMOL/L (136-145) Potassium Level 3.9 MMOL/L (3.5-5.1) Chloride Level 106 MMOL/L (98-107) Carbon Dioxide Level 30 MMOL/L (21-32) Anion Gap 4 mmol/L (5-15) L Blood Urea Nitrogen 28 mg/dL (7-18) H Creatinine 0.8 MG/DL (0.55-1.30) Estimat Glomerular Filtration Rate > 60 mL/min (>60) Glucose Level 139 MG/DL (74-106) H Calcium Level 7.7 MG/DL (8.5-10.1) L POC Whole Blood Glucose Pending Current Medications Medications (Trade) Dose Ordered Sig/Inna Route PRN Reason Start Time Stop Time Status Last Admin Dose Admin Acetaminophen (Tylenol) 650 mg Q4H PRN GT fever 100.4, mild pain 11/10/19 10:00 12/01/19 23:14 Acetaminophen (Tylenol) 650 mg Q4H PRN RECTAL Temp >100.5 11/08/19 21:30 12/08/19 21:29 11/18/19 21:43 Albuterol/ Ipratropium (Albuterol/ Ipratropium) 3 ml Q4H PRN HHN Shortness of Breath 11/20/19 08:02 11/25/19 08:01 Ascorbic Acid (Vitamin C) 500 mg DAILY GT 11/02/19 09:00 12/02/19 08:59 11/08/19 08:42 Carbidopa/Levodopa (Sinemet 25/100) 2 tab QID GT 11/02/19 09:00 12/02/19 08:59 11/21/19 17:29 Chlorhexidine Gluconate (Josefa-Hex 2%) 1 applic DAILY@2000 TOPIC 11/15/19 20:00 02/13/20 19:59 11/20/19 20:01 Daptomycin 500 mg/ Sodium Chloride 50 ml @ 100 mls/hr Q24H IV 11/20/19 16:00 11/27/19 15:59 11/21/19 16:51 Dextrose 1,000 ml @ 0 mls/hr Q24H PRN IV PN interrupted or unavailable 11/09/19 20:00 12/09/19 19:59 Dextrose (Dextrose 50%) 25 ml Q30M PRN IV Hypoglycemia 11/09/19 20:00 02/07/20 19:59 Dextrose (Dextrose 50%) 50 ml Q30M PRN IV Hypoglycemia 11/09/19 20:00 02/07/20 19:59 Docusate Sodium (Colace) 100 mg DAILY GT 11/02/19 09:00 12/02/19 08:59 11/08/19 08:41 Entacapone (Comtan) 400 mg THREE TIMES A DAY ORAL 11/10/19 13:00 12/02/19 17:59 11/21/19 17:28 Fat Emulsion Intravenous 192 ml/Amino Acids/ Electrolytes/ Dextrose 1,872 ml @ 78 mls/hr Q24H IV 11/11/19 20:00 12/11/19 19:59 11/20/19 19:19 Insulin Aspart (NovoLOG) Q6HR SUBQ 11/06/19 12:00 02/04/20 11:59 11/21/19 11:36 Metoclopramide HCl (Reglan) 5 mg Q6H PRN IVP nausea or vomiting 11/01/19 23:15 12/01/19 23:14 11/02/19 12:51 Multivitamins (Multivitamins W/ Minerals 15ml Liquid) 15 ml DAILY GT 11/02/19 09:00 12/02/19 08:59 11/08/19 08:42 Ondansetron HCl (Zofran) 4 mg Q4H PRN IVP Nausea & Vomiting 11/01/19 23:15 12/01/19 23:14 Pantoprazole (Protonix) 40 mg DAILY IVP 11/05/19 09:00 12/05/19 08:59 11/21/19 08:27 Polyethylene Glycol (Miralax) 17 gm DAILY PRN GT Constipation 11/02/19 08:30 12/02/19 07:59 Polymyxin B Sulfate [id number] units/Dextrose 550 ml @ 550 mls/hr EVERY 12 HOURS IV 11/16/19 09:00 11/23/19 08:59 11/21/19 08:29 Quetiapine Fumarate (SEROqueL) 50 mg QHS GT 11/02/19 21:00 12/17/19 20:59 11/07/19 21:36 Sennosides (Senokot) 8.6 mg QHS GT 11/02/19 21:00 12/02/19 20:59 11/07/19 21:32 Tigecycline 50 mg/ Sodium Chloride 110 ml @ 220 mls/hr Q12H IVPB 11/20/19 00:00 11/27/19 00:00 11/21/19 11:05 Zinc Oxide (Desitin) 1 applic FOUR TIMES A DAY TOPIC 11/04/19 14:00 12/04/19 13:59 11/21/19 17:30 González Yadav MD Nov 21, 2019 19:25
[2019-11-21 20:00] VITALS: BP 123/55
[2019-11-21] MEDS: Dyna-Hex 2% Top Sol 2oz TOPIC SCH (20:10)
[2019-11-21] MEDS: Acetaminophen 650mg/20.3ml GT PRN (20:10)
[2019-11-21] MEDS: Sennosides 8.6mg tab GT SCH (20:10)
--- NOTE | 2019-11-21 20:45 | NUR ---
NURSE NOTES: temp appears to be trending down after applying cooling measures and Tylenol admin- will continue to monitor pt. and with plan of care.n pt. remains stable- oral care provided- repositioned and suctioned pt.
[2019-11-22] VITALS: BP 109/43
[2019-11-22 04:00] VITALS: BP 119/56
[2019-11-22] MEDS: NovoLOG Insulin Flexpen SUBQ SCH ×4 (05:03→23:00)
[2019-11-22 05:50] LABS: HEMATOCRIT 23.1 % (37.0-47.0); HEMOGLOBIN 7.3 G/DL (12.0-16.0); MEAN CORPUSCULAR VOLUME 91 FL (80-99); PLATELET COUNT 28 K/UL (150-450); RED BLOOD COUNT 2.55 M/UL (4.20-5.40); RED CELL DISTRIBUTION WIDTH 15.4 % (11.6-14.8)
[2019-11-22 05:53] LABS: WHITE BLOOD COUNT 112.7 K/UL (4.8-10.8)
--- NOTE | 2019-11-22 07:03 | NUR ---
HAND-OFF: Report given to Dana RN, pt. remains stable and no distress noted- aware to f/u on any am abnormal labs.
--- NOTE | 2019-11-22 07:04 | NUR ---
NURSE NOTES: Received patient in bed. Vent dependent. On continuous GTF and TPN. Bailey cath noted. Contact isolation observed. Will continue plan of care.
[2019-11-22 07:50] LABS: APPEARANCE,URINE SLIGHTLY CLOUDY; BILIRUBIN, URINE NEGATIVE (NEGATIVE); GLUCOSE, URINE (UA) NEGATIVE (NEGATIVE); KETONES,URINE NEGATIVE (NEGATIVE); LEUKOCYTE ESTERASE ,URINE NEGATIVE (NEGATIVE); NITRITE,URINE NEGATIVE (NEGATIVE); PH,URINE 5 (4.5-8.0); PROTEIN,URINE 2+ (NEGATIVE); UROBILINOGEN,URINE NORMAL MG/DL (0.0-1.0)
[2019-11-22 08:00] VITALS: BP 122/59
[2019-11-22 08:00] LABS: COLOR,URINE YELLOW
--- NOTE | 2019-11-22 08:36 | General Progress Note ---
Assessment/Plan Status: stable, unchanged Assessment/Plan: 1. AML. 2. Respiratory failure with vent. 3. Dysphagia with G-tube. 4. Ovarian mass. 5. Advanced Parkinson disease. 6. Anemia requiring blood transfusion in the past. 7. Dementia. 8. Pancytopenia. s/p EGD and peg placement yesterday plan to cut TPN by half and increase TF to 30 cc plan DC TPN tomorrow if tolerated poor prognosis Subjective ROS Limited/Unobtainable: No Allergies: Coded Allergies: PENICILLINS (Verified Allergy, Unknown, 11/01/19) VANCOMYCIN (Verified Allergy, Unknown, 11/01/19) Uncoded Allergies: PENICI (Allergy, Unknown, 11/01/19) Objective Last 24 Hour Vital Signs Date Time Temp Pulse Resp B/P (MAP) Pulse Ox O2 Delivery O2 Flow Rate FiO2 11/22/19 07:26 113 24 40 11/22/19 04:00 40 11/22/19 04:00 Mechanical Ventilator 11/22/19 04:00 97.1 103 22 119/56 (77) 98 11/22/19 04:00 111 11/22/19 03:10 112 20 40 11/22/19 00:00 40 11/22/19 00:00 98.1 109 22 109/43 (65) 100 11/22/19 00:00 Mechanical Ventilator 11/21/19 23:27 109 11/21/19 23:00 111 26 40 11/21/19 20:40 98.5 11/21/19 20:40 98.5 11/21/19 20:00 Mechanical Ventilator 11/21/19 20:00 99.9 110 22 123/55 (77) 100 11/21/19 20:00 40 11/21/19 19:02 117 11/21/19 19:00 117 24 40 11/21/19 16:00 98.8 110 22 119/55 (76) 93 11/21/19 16:00 111 11/21/19 16:00 40 11/21/19 16:00 Mechanical Ventilator 11/21/19 15:05 113 26 40 11/21/19 13:34 112 20 100 11/21/19 13:32 111 20 100 11/21/19 12:00 40 11/21/19 12:00 98.6 109 24 117/54 (75) 100 11/21/19 12:00 Mechanical Ventilator 11/21/19 12:00 Mechanical Ventilator 11/21/19 12:00 109 11/21/19 11:05 100 21 40 Intake and Output 11/21/19 11/22/19 19:00 07:00 Intake Total 1678 ml 1838 ml Output Total 650 ml 1250 ml Balance 1028 ml 588 ml Intake Free Water 50 ml 50 ml IV Total 1568 ml 1668 ml Tube Feeding 60 ml 120 ml Output Urine Total 650 ml 1250 ml # Bowel Movements 1 1 Laboratory Tests 11/21/19 23:42: POC Whole Blood Glucose [Pending] 11/22/19 05:30: White Blood Count 112.7*H, Red Blood Count 2.55L, Hemoglobin 7.3L, Hematocrit 23.1L, Mean Corpuscular Volume 91, Mean Corpuscular Hemoglobin 28.8, Mean Corpuscular Hemoglobin Concent 31.8L, Red Cell Distribution Width 15.4H, Platelet Count 28L, Mean Platelet Volume 10.1, Neutrophils (%) (Auto) , Lymphocytes (%) (Auto) , Monocytes (%) (Auto) , Eosinophils (%) (Auto) , Basophils (%) (Auto) , Neutrophils % (Manual) [Pending], Lymphocytes % (Manual) [Pending], Platelet Estimate [Pending], Platelet Morphology [Pending] 11/22/19 06:00: Urine Color Yellow, Urine Appearance Slightly cloudy, Urine pH 5, Urine Specific [place] 1.015, Urine Protein 2+H, Urine Glucose (UA) Negative, Urine Ketones Negative, Urine Blood 2+H, Urine Nitrite Negative, Urine Bilirubin Negative, Urine Urobilinogen Normal, Urine Leukocyte Esterase Negative, Urine RBC 10-15H, Urine WBC 0-2, Urine Squamous Epithelial Cells Few, Urine Bacteria ModerateH, Urine Yeast ManyH Height (Feet): 5 Height (Inches): 3.00 Weight (Pounds): 239 General Appearance: no apparent distress EENT: normal ENT inspection Neck: normal inspection Cardiovascular: normal rate Respiratory/Chest: decreased breath sounds Abdomen: normal bowel sounds, non tender, soft Extremities: non-tender Negro Reeves MD Nov 22, 2019 08:36
[2019-11-22] MEDS: Pantoprazole Inj IVP SCH (09:09)
[2019-11-22] MEDS: Docusate 100mg/10ml Liq GT SCH (09:09)
[2019-11-22] MEDS: Multivitamins W/Minerals 15 ML UDC GT SCH (09:09)
[2019-11-22] MEDS: Levodopa/Carbidopa 25/100 tab GT SCH ×4 (09:10→20:01)
[2019-11-22] MEDS: Hydroxyurea 500mg cap ORAL SCH (09:10)
[2019-11-22] MEDS: Ascorbic Acid 500mg tab GT SCH (09:10)
[2019-11-22] MEDS: Polymyxin B Sulfate 500,000 UNITS in D5W 500ml 550 ML IV SCH ×2 (09:10→20:01)
[2019-11-22] MEDS: Entacapone 200mg tab ORAL SCH ×3 (09:10→17:30)
[2019-11-22] MEDS: Desitin Rash Paste TOPIC SCH ×4 (09:11→20:01)
[2019-11-22 12:00] VITALS: BP 124/61
--- NOTE | 2019-11-22 12:42 | Surgery Progress Note ---
Surgery Progress Note Subjective Additional Comments ill appearing silver nitrate around g tube site with hypergranulation no n/v/fc Objective Last 24 Hour Vital Signs Date Time Temp Pulse Resp B/P (MAP) Pulse Ox O2 Delivery O2 Flow Rate FiO2 11/22/19 12:00 Mechanical Ventilator 11/22/19 12:00 40 11/22/19 08:00 97.4 102 22 122/59 (80) 98 11/22/19 08:00 40 11/22/19 08:00 Mechanical Ventilator 11/22/19 07:38 110 11/22/19 07:26 113 24 40 11/22/19 04:00 40 11/22/19 04:00 Mechanical Ventilator 11/22/19 04:00 97.1 103 22 119/56 (77) 98 11/22/19 04:00 111 11/22/19 03:10 112 20 40 11/22/19 00:00 40 11/22/19 00:00 98.1 109 22 109/43 (65) 100 11/22/19 00:00 Mechanical Ventilator 11/21/19 23:27 109 11/21/19 23:00 111 26 40 11/21/19 20:40 98.5 11/21/19 20:40 98.5 11/21/19 20:00 Mechanical Ventilator 11/21/19 20:00 99.9 110 22 123/55 (77) 100 11/21/19 20:00 40 11/21/19 19:02 117 11/21/19 19:00 117 24 40 11/21/19 16:00 98.8 110 22 119/55 (76) 93 11/21/19 16:00 111 11/21/19 16:00 40 11/21/19 16:00 Mechanical Ventilator 11/21/19 15:05 113 26 40 11/21/19 13:34 112 20 100 11/21/19 13:32 111 20 100 I&O Intake and Output 11/21/19 11/22/19 19:00 07:00 Intake Total 1678 ml 1838 ml Output Total 650 ml 1250 ml Balance 1028 ml 588 ml Intake Free Water 50 ml 50 ml IV Total 1568 ml 1668 ml Tube Feeding 60 ml 120 ml Output Urine Total 650 ml 1250 ml # Bowel Movements 1 1 Dressing: saturated Cardiovascular: RSR Respiratory: decreased breath sounds Abdomen: soft, present bowel sounds, non-distended Extremities: edema, no tenderness, no cyanosis Laboratory Tests Test 11/21/19 23:42 11/22/19 05:30 11/22/19 06:00 POC Whole Blood Glucose Pending White Blood Count 112.7 K/UL (4.8-10.8) *H Red Blood Count 2.55 M/UL (4.20-5.40) L Hemoglobin 7.3 G/DL (12.0-16.0) L Hematocrit 23.1 % (37.0-47.0) L Mean Corpuscular Volume 91 FL (80-99) Mean Corpuscular Hemoglobin 28.8 PG (27.0-31.0) Mean Corpuscular Hemoglobin Concent 31.8 G/DL (32.0-36.0) L Red Cell Distribution Width 15.4 % (11.6-14.8) H Platelet Count 28 K/UL (150-450) L Mean Platelet Volume 10.1 FL (6.5-10.1) Neutrophils (%) (Auto) % (45.0-75.0) Lymphocytes (%) (Auto) % (20.0-45.0) Monocytes (%) (Auto) % (1.0-10.0) Eosinophils (%) (Auto) % (0.0-3.0) Basophils (%) (Auto) % (0.0-2.0) Differential Total Cells Counted 100 Neutrophils % (Manual) 2 % (45-75) L Lymphocytes % (Manual) 14 % (20-45) L Monocytes % (Manual) 18 % (1-10) H Eosinophils % (Manual) 2 % (0-3) Basophils % (Manual) 0 % (0-2) Blast Cells % 64 % (0-0) *H Band Neutrophils 0 % (0-8) Nucleated Red Blood Cells 6 /100 WBC Platelet Estimate Decreased L Platelet Morphology Normal Hypochromasia 3+ Anisocytosis 1+ Urine Color Yellow Urine Appearance Slightly cloudy Urine pH 5 (4.5-8.0) Urine Specific [place] 1.015 (1.005-1.035) Urine Protein 2+ (NEGATIVE) H Urine Glucose (UA) Negative (NEGATIVE) Urine Ketones Negative (NEGATIVE) Urine Blood 2+ (NEGATIVE) H Urine Nitrite Negative (NEGATIVE) Urine Bilirubin Negative (NEGATIVE) Urine Urobilinogen Normal MG/DL (0.0-1.0) Urine Leukocyte Esterase Negative (NEGATIVE) Urine RBC 10-15 /HPF (0 - 2) H Urine WBC 0-2 /HPF (0 - 2) Urine Squamous Epithelial Cells Few /LPF (NONE/OCC) Urine Bacteria Moderate /HPF (NONE) H Urine Yeast Many /HPF (NONE) H Plan Problems: (1) Decubitus skin ulcer Assessment & Plan: Pt presented on admission with multiple Pressure Injuries, and contractures. Large Soft Mass noted to lateral R chest ,just inferior to Breast.Soft mass that uis violaceous and denuded. Unstageable Pressure injury R thoracic. Wound presents as partially opened DTPI( L)6cm x (W)8.5cm. 95% Soft eschar flap,5% dee. Marginal erythema along borders In addition scattered linear and purple area periwound. Full thickness stage 4 Sacral Pressure Injury(L)9.3cm x (W)8.7cm. Base of wound is 95% necrotic,but bone is palpable.Mild odor noted. No exudate noted. Non-blanching erythema periwound. Unstageable Pressure Injury R trochanter(L)3.5cm x (W)4.2cm. Base of wound is 90 % soft eschar, 10% pink epithelial. Edges adherent to base of wound .No erythema induration or fluctuance periwound. Unstageable Pressure injury R Ischium(L)3.5cm x (W)2.5cm. Dry eschar at base of wound, edges are adherent with surrounding pink epithelial. No erythema or induration periwound. DTPI L trochanter(L)4cm x (W)1cm. Stable dry eschar L Hallux(L)1.6cm x (W)2cm.NO erythema fluctuance or induration periwound. L 1st metatarsal TMA noted. Stable dry eschar distal/lateral L foot (L)1.5cm x (W)3cm. No erythema, induration or fluctuance periwound. DTPI noted to plantar L foot.(L)0.9cm x (W)0.9cm. Base of wound is fluctuant, purple with maroon borders. Unstageable Pressure injury L lateral Malleolus. Stable dry eschar noted.No erythema or induration periwound. L heel is boggy with non-blanching erythema. Unstageable Pressure injury R Hallux and plantar aspect(L)3.5cm x (W)3.4cm. Soft eschar at base of wound with marginal erythema along borders. R heel is boggy with Non-Blanching erythema. Unstageable Presure injury distal/Lateral R foot . Stable dry eschar noted . No erythema of fluctuance periwound. Tx.Plan: Cleanse Sacral Wound with Saline. Loosely pack with Therahoney impregnated Kerlix.Applpy Moisture Barrier Paste periwound. Cover with Optifoam drsg. Change Daily and prn. Cleanse Soft Mass R chest with Saline. Cover with Optifoam drsg. Change Daily and prn. Cleanse wounds R trochanter, R Ischium with Saline. Apply Moisture Barrier Paste.Cover with Optifoam drsg. Change every 3 days and prn. Apply Moisture Barrier to L trochanter. Cvoer with Optifoam drsg. Change every 3 days and prn. Apply Betadine to wounds R and L foot. Cover each wound with Optifoam drsg. Changee very 3 days and prn. Apply Cavilon Skin Barrier to both heels. Cover each heel with Optifoam drsg. Change every 7 days and prn. APM/ANA Mattress overlay. turn q2h nutritional optimization (2) Malnutrition Assessment & Plan: DAILY ESTIMATED NEEDS: Needs based on Critical care, wounds, 64kg 22-28 kcals/kg [id number] total kcals 1.25-2 g protein/kg 80-128 g total protein 25-30 mL/kg [id number] total fluid mLs NUTRITION DIAGNOSIS: Swallowing difficulty r/t respiratory status as evidenced by pt is trach and peg dep, currently NPO, on TPN, . CURRENT TF:NPO, on TPN PARENTERAL NUTRITION RECOMMENDATIONS: D/AA Rate: 70 IL Rate: 8 Total Rate: 78 Volume: 1872 % Dextrose: 18 % AA: 5.5 Energy (kcals/kg): 1781 Protein (g/kg protein): 92 Nonprotein KCALS: 1412 GIR (mg CHO/kg/min): 3.3 % Fat KCALS: 22 NCP: N Ratio: 96:1 TPN Comment: - Maintain current TPN: -> D18%, AA 5.5% @70ml/hr w/ 20%IL @8ml/hr - all 3:1 - TF at goal meets 100% est needs, provides 28 kcal/kg and 1.4g/kg pro. - GIR<5 - IL <30% ADDITIONAL RECOMMENDATIONS: 1) Per SNF: 65 inches (5'5"); 141 lbs (64.1kg) 2) Wound care: add MEIR BID via GT w/ TF order; hold w/ TPN 3) Monitor lytes, BG, and LFT's on TPN - check updated phos and mag - Watch LFT's, AST trending up, rec updated level (3) Anemia Assessment & Plan: transfused trend labs no active bleeding stool study GI eval (4) UTI (urinary tract infection) (5) Tracheostomy dependence Assessment & Plan: Findings: The left hemidiaphragm is elevated. Atelectatic changes are present in the left lung base. There is minimal right basilar atelectasis. No definite infiltrates. There is a tracheostomy. Impression: Elevated left hemidiaphragm with considerable left basilar atelectasis. Less extensive right basilar atelectasis. Inspiration is suboptimal. Interim development of opacity of the left mid and lower lung. The left hemidiaphragm is obscured. Right lung is probably clear , although there is crowding of bronchovascular lung volumes. Tracheostomy remains. Impression: Since 11/01/2019, interim development of left mid and lower lung infiltrates versus edema and possibly pleural fluid Juan Houser Nov 22, 2019 12:42
[2019-11-22] MEDS: [UNRECOGNIZED DRUG - OTHER] IVPB SCH ×4 (13:28→23:01)
[2019-11-22] MEDS ORDERED: NS 275ml ONE (13:44)
--- NOTE | 2019-11-22 14:28 | Pulmonology Progress Note ---
Martha Chandler HEEL CURVER 11/22/19 1428: Subjective ROS Limited/Unobtainable: No Constitutional: Reports: other - + vent ; Denies: fever Gastrointestinal/Abdominal: Denies: nausea, vomiting Psychiatric: Reports: other - NA Skin: Denies: rash Musculoskeletal: Reports: other - NA Allergies: Coded Allergies: PENICILLINS (Verified Allergy, Unknown, 11/01/19) VANCOMYCIN (Verified Allergy, Unknown, 11/01/19) Uncoded Allergies: PENICI (Allergy, Unknown, 11/01/19) All Systems: reviewed and negative except above Subjective no signs of resp distress on current vent settings leukocytosis down to 112.7 no fevers PICC exchanged 11/15 s/p EGD , removal of G tube 10/07 on TPN since 11/08 s/p 1 u PRNC and 1 u plateletpheresis 11/14 -> 11/21 PLT 28, Hgb 7.3 s/p EGD and PEG placement 11/20 Objective Last 24 Hour Vital Signs Date Time Temp Pulse Resp B/P (MAP) Pulse Ox O2 Delivery O2 Flow Rate FiO2 11/22/19 12:00 Mechanical Ventilator 11/22/19 12:00 40 11/22/19 12:00 97.0 101 22 124/61 (82) 98 11/22/19 11:33 119 11/22/19 11:30 103 21 40 11/22/19 08:00 97.4 102 22 122/59 (80) 98 11/22/19 08:00 40 11/22/19 08:00 Mechanical Ventilator 11/22/19 07:38 110 11/22/19 07:26 113 24 40 11/22/19 04:00 40 11/22/19 04:00 Mechanical Ventilator 11/22/19 04:00 97.1 103 22 119/56 (77) 98 11/22/19 04:00 111 11/22/19 03:10 112 20 40 11/22/19 00:00 40 11/22/19 00:00 98.1 109 22 109/43 (65) 100 11/22/19 00:00 Mechanical Ventilator 11/21/19 23:27 109 11/21/19 23:00 111 26 40 11/21/19 20:40 98.5 11/21/19 20:40 98.5 11/21/19 20:00 Mechanical Ventilator 11/21/19 20:00 99.9 110 22 123/55 (77) 100 11/21/19 20:00 40 11/21/19 19:02 117 11/21/19 19:00 117 24 40 11/21/19 16:00 98.8 110 22 119/55 (76) 93 11/21/19 16:00 111 11/21/19 16:00 40 11/21/19 16:00 Mechanical Ventilator 11/21/19 15:05 113 26 40 Intake and Output 11/21/19 11/22/19 19:00 07:00 Intake Total 1678 ml 1838 ml Output Total 650 ml 1250 ml Balance 1028 ml 588 ml Intake Free Water 50 ml 50 ml IV Total 1568 ml 1668 ml Tube Feeding 60 ml 120 ml Output Urine Total 650 ml 1250 ml # Bowel Movements 1 1 Objective General Appearance: no apparent distress, bedridden, vent dependent chronically ill appearing female Lines, tubes and drains: peripheral HEENT: normocephalic, atraumatic, anicteric, status post trach: Shiley #6, secretions small amount, thick consistency, white color , Vent AC 400-40%-20 PEEP 5 Respiratory/Chest: no respiratory distress, few scattered rhonchi Cardiovascular/Chest: regular rhythm, LUE PICC intact Abdomen: non tender, soft, distended, PEG with TF , Extremities: no edema, spastic LE Skin Exam: warm/dry, multiple DTI POA ( sacral, ankle foot, elbow) Neurologic: abnormal gait : bedridden, not responsive Musculoskeletal: atrophy - BLE Laboratory Tests 11/21/19 23:42: POC Whole Blood Glucose [Pending] 11/22/19 05:30: White Blood Count 112.7*H, Red Blood Count 2.55L, Hemoglobin 7.3L, Hematocrit 23.1L, Mean Corpuscular Volume 91, Mean Corpuscular Hemoglobin 28.8, Mean Corpuscular Hemoglobin Concent 31.8L, Red Cell Distribution Width 15.4H, Platelet Count 28L, Mean Platelet Volume 10.1, Neutrophils (%) (Auto) , Lymphocytes (%) (Auto) , Monocytes (%) (Auto) , Eosinophils (%) (Auto) , Basophils (%) (Auto) , Differential Total Cells Counted 100, Neutrophils % ( Manual) 2L, Lymphocytes % (Manual) 14L, Monocytes % (Manual) 18H, Eosinophils % (Manual) 2, Basophils % (Manual) 0, Blast Cells % 64*H, Band Neutrophils 0, Nucleated Red Blood Cells 6, Platelet Estimate DecreasedL, Platelet Morphology Normal, Hypochromasia 3+, Anisocytosis 1+ 11/22/19 06:00: Urine Color Yellow, Urine Appearance Slightly cloudy, Urine pH 5, Urine Specific [place] 1.015, Urine Protein 2+H, Urine Glucose (UA) Negative, Urine Ketones Negative, Urine Blood 2+H, Urine Nitrite Negative, Urine Bilirubin Negative, Urine Urobilinogen Normal, Urine Leukocyte Esterase Negative, Urine RBC 10-15H, Urine WBC 0-2, Urine Squamous Epithelial Cells Few, Urine Bacteria ModerateH, Urine Yeast ManyH Current Medications Medications (Trade) Dose Ordered Sig/Inna Route PRN Reason Start Time Stop Time Status Last Admin Dose Admin Acetaminophen (Tylenol) 650 mg Q4H PRN GT fever 100.4, mild pain 11/10/19 10:00 12/01/19 23:14 11/21/19 20:10 Acetaminophen (Tylenol) 650 mg Q4H PRN RECTAL Temp >100.5 11/08/19 21:30 12/08/19 21:29 11/18/19 21:43 Albuterol/ Ipratropium (Albuterol/ Ipratropium) 3 ml Q4H PRN HHN Shortness of Breath 11/20/19 08:02 11/25/19 08:01 Ascorbic Acid (Vitamin C) 500 mg DAILY GT 11/02/19 09:00 12/02/19 08:59 11/22/19 09:10 Carbidopa/Levodopa (Sinemet 25/100) 2 tab QID GT 11/02/19 09:00 12/02/19 08:59 11/22/19 13:24 Chlorhexidine Gluconate (Josefa-Hex 2%) 1 applic DAILY@2000 TOPIC 11/15/19 20:00 02/13/20 19:59 11/21/19 20:10 Daptomycin 500 mg/ Sodium Chloride 50 ml @ 100 mls/hr Q24H IV 11/20/19 16:00 11/27/19 15:59 11/21/19 16:51 Dextrose 1,000 ml @ 0 mls/hr Q24H PRN IV PN interrupted or unavailable 11/09/19 20:00 12/09/19 19:59 Dextrose (Dextrose 50%) 25 ml Q30M PRN IV Hypoglycemia 11/09/19 20:00 02/07/20 19:59 Dextrose (Dextrose 50%) 50 ml Q30M PRN IV Hypoglycemia 11/09/19 20:00 02/07/20 19:59 Docusate Sodium (Colace) 100 mg DAILY GT 11/02/19 09:00 12/02/19 08:59 11/22/19 09:09 Entacapone (Comtan) 400 mg THREE TIMES A DAY ORAL 11/10/19 13:00 12/02/19 17:59 11/22/19 13:24 Fat Emulsion Intravenous 192 ml/Amino Acids/ Electrolytes/ Dextrose 1,872 ml @ 78 mls/hr Q24H IV 11/11/19 20:00 11/22/19 19:59 11/21/19 19:26 Fat Emulsion Intravenous 96 ml/ Amino Acids/ Electrolytes/ Dextrose 936 ml @ 39 mls/hr Q24H IV 11/22/19 20:00 12/22/19 19:59 Hydroxyurea (Hydrea) 500 mg DAILY ORAL 11/22/19 09:00 11/27/19 08:59 11/22/19 09:10 Insulin Aspart (NovoLOG) Q6HR SUBQ 11/06/19 12:00 02/04/20 11:59 11/22/19 05:03 Metoclopramide HCl (Reglan) 5 mg Q6H PRN IVP nausea or vomiting 11/01/19 23:15 12/01/19 23:14 11/02/19 12:51 Multivitamins (Multivitamins W/ Minerals 15ml Liquid) 15 ml DAILY GT 11/02/19 09:00 12/02/19 08:59 11/22/19 09:09 Ondansetron HCl (Zofran) 4 mg Q4H PRN IVP Nausea & Vomiting 11/01/19 23:15 12/01/19 23:14 Pantoprazole (Protonix) 40 mg DAILY IVP 11/05/19 09:00 12/05/19 08:59 11/22/19 09:09 Polyethylene Glycol (Miralax) 17 gm DAILY PRN GT Constipation 11/02/19 08:30 12/02/19 07:59 Polymyxin B Sulfate [id number] units/Dextrose 550 ml @ 550 mls/hr EVERY 12 HOURS IV 11/21/19 21:00 11/28/19 20:59 11/22/19 09:10 Quetiapine Fumarate (SEROqueL) 50 mg QHS GT 11/02/19 21:00 12/17/19 20:59 11/21/19 20:10 Sennosides (Senokot) 8.6 mg QHS GT 11/02/19 21:00 12/02/19 20:59 11/21/19 20:10 Tigecycline 50 mg/ Sodium Chloride 110 ml @ 220 mls/hr Q12H IVPB 11/20/19 00:00 11/27/19 00:00 11/22/19 13:28 Zinc Oxide (Desitin) 1 applic FOUR TIMES A DAY TOPIC 11/04/19 14:00 12/04/19 13:59 11/22/19 13:24 Assessment/Plan Assessment/Plan ASSESSMENT Chronic respiratory failure ventilator dependent with tracheostomy status Sepsis Bacteremia PICC infection with Klebsiella CRE Persistent fevers Hypotension, possible early shock - resolved Pneumonia, possible aspiration UTI with Klebsiella pneumonia CRE Hypotension, possible early shock - resolved 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), s/p 2 u PRBC Pancytopenia Leukocytosis Dysphagia, feeding by G-tube Advanced Parkinson's disease Severe protein calorie malnutrition Malfunctioning G tube ( inadvertently was removed), s/p EGD and removal of G tube, s/p EGD and new PEG 11/20 Multiple DTI , POA Ovarian mass consistent with neoplasm AML Suspected COVID-19 infection -ruled out Severe protein calorie malnutrition Functional quadriplegia E/lyte abnormalities PLAN OF CARE NAZARIO ( was for a short time in ICU, responded to IVC boluses and albumin boluses) ventilator support, trach care, pulm toilet ABG stable on current settings, keep as is and optimize as needed CXR 11/06 unchanged, SCX 11/05 Providencia , Klebsiella CRE, Pseudomonas CXR 11/09 no change: Tracheostomy remains in place. Basilar infiltrates not significantly changed. Small effusions unchanged CXR 11/12 -Persistent low lung volumes, may be related to shallow inspiration. Bilateral patchy interstitial and air space opacities, most prominent in the left lung base. Stable to mildly worsened compared to the prior exam and is concerning for pneumonia versus pulmonary edema. Possible small left pleural effusion. CXR 11/14 - Slight worsening of bilateral alveolar densities which could be worsening infiltrates and/or edema repeat CXR 11/17 no significant changes from before BCX 10/31 05/28 Staph haemolyticus, likely contaminant BCX 11/01 05/28 MRSA BCX 11/03 NGTD UCX Klebsiella CRE BCX 11/05 ACB MDR, Staph BCX 11/06 NGTD BCX 11/10 GNR UCX 11/10 + yeast BCX 11/13 NGTD abx as per ID recs leuk again with trend up , no fevers for the last 48 hrs RUE PICC was dc with tip cx and LUE PICC inserted by IR 11/15 PICC tip CX + Klebsiella CRE -CT A/P 11/09 BILATERAL SMALL PLEURAL EFFUSIONS AND DEPENDENT INFILTRATES. HUGE SEPTATED CYSTIC MASS ARISING FROM THE PELVIS EXTENDING INTO THE ABDOMEN MOST LIKELY OF OVARIAN ORIGIN. SMALL AMOUNT OF FREE FLUID ADJACENT TO THE HEPATIC AND SPLENIC EDGE WELL IN THE PELVIS. LEFT RENAL STONE. POSSIBLE SLUDGE OR NONCALCIFIED STONES LAYERING IN THE GALLBLADDER. LEFT LOWER QUADRANT STOMA. SEVERE DEGENERATIVE CHANGES AND DEXTROSCOLIOSIS OF THE SPINE. ANASARCA. ECHO with pEF 55%, no discrete vegetation seen COVID 11/01 NGT, Venous Duplex BLE NGT, apply SCD, monitor HH with goal to keep Hgb >7, trend PLT severe pancytopenia likely 2 to AML s/p 1 unit PLT-pheresis and 1 u PRBC leukocytosis 2 to sepsis and partially probably due to malignancy/AML and ovarian Ca gentle IVF replace lytes as needed, monitor volumes asp precautions GT was inadvertently removed s/p replacement 11/03 by GI started TF still leaking plan replacement with GJ tube but cancelled due to leukocytosis s/p EGD 11/07, old G tube removed, unable to place a new one due to a large site , currently on TPN strict aspir precautions s/p new PEG 11/20 TF as per GI and taper TPN if tolerates , fup with GI recs protein supplement as per RD recs continue SNF meds as per primary supportive care bowel regimen wound care as per surgeon recs overall prognosis grave, given sepsis and multiple comorbidities, with superimposed AML and ovarian mass, DNR/DNI status family declined transfer to [place] , bed is apparently no more available case discussed and evaluated by supervising physician Eugene Dan MD 11/22/19 2113: Subjective Allergies: Coded Allergies: PENICILLINS (Verified Allergy, Unknown, 11/01/19) VANCOMYCIN (Verified Allergy, Unknown, 11/01/19) Uncoded Allergies: PENICI (Allergy, Unknown, 11/01/19) Assessment/Plan Assessment/Plan Patient seen and examined with HEEL CURVER. Agree with above A&P as it reflects our joint deliberations. Martha Chandler NP Nov 22, 2019 14:28 Eugene Dan MD Nov 22, 2019 21:13
--- NOTE | 2019-11-22 14:38 | NUR ---
CASE MANAGEMENT: REVIEW SI: ANEMIA . UTI . PICC INFECTION w/KLEBSIELLA CRE GJ TUBE PLACEMENT 11/20 T 97.0 HR 119 RR 22 BP 122/59 SAT 98% MECH VENT FIO2 40 WBC 112.7 H/H 7.3/23.1 IS: DAPTOMYCIN IV Q24HR TYGACIL Q12HR POLYMYXIN B SULFATE IV Q12HR PROTONIX IV QD TPN IV Q24HR J TUBE FEEDING @ 10ML/HR WOUND CARE -- SILVER NITRATE AROUND G-TUBE SITE STEP DOWN UNIT STATUS DCP: PATIENT IS FROM [facility]: DECREASE TPN BY HALF & INCREASE TF TO 30ML/HR
--- NOTE | 2019-11-22 15:20 | NUR ---
CASE MANAGEMENT: DCP PENDING MEDICAL STABILIZATION PATIENT WILL TRANSFER BACK TO PREVIOUS FACILITY REFERRAL SENT TO [facility] [phone] PH / FAX [phone] Addendum: 11/23/19 at 1357 by VIDAL SCOTT CM PATIENT ACCEPTED TO ROOM# [id number]
[2019-11-22] MEDS: Acetaminophen 650mg/20.3ml GT PRN ×2 (15:58→20:00)
[2019-11-22 16:00] VITALS: BP 129/61
--- NOTE | 2019-11-22 16:14 | NUR ---
NURSE NOTES:WOUND CARE FOLLOW-UP NOTES:Pt deconditioned. Generalized edemae noted. Atypical nodular lesion noted in close proximity but inferior to R breast. Small amt of serous exudate noted. Generalized violaceous rash noted to trunk,back bilat upper and bilat lower ext. Hyperkeratosis noted to palm of L hand. Thickened layer remove with cleansing and application of Moisturizing lotion. Gastrostomy site is hypergranular, moderate amt of formula noted to leaking around GT site. Silver Nitrate application applied to stoma. Lesion noted to R thoracic area(L)2.3cm x (W)2.5cm. Base of wound 75% escalona slough with surrounding beefy red ,shiny skin. No odor or exudate noted. Full thickness Sacral Pressure(L)6cm x (W)9.7cm x (D)2.1cm . Base of injury is 80% necrotic,20% pink and moist, able to palpate bone at base of wound. Small amt brownish exudate noted.Surrounding dark brown borders without induration or elevation in skin temp. Resolving Pressure injury noted to R ischium (L)1cm x (W)0.9cm. Base of wound is dee with surrounding pink epithelial. No odor or exudate noted. Unstageable Pressure Injury R trochanter(L)2.6cm x (W)3.5cm. Base of wound has 75% mixed necrosis and slough, 25% dee surrounding wound bed. Edges are macerated. Periwound is dark and fluctuant. R heel is dry, blanchable, but boggy. Bilat foot drop noted. L 1st TMA. Dry flaky skin noted at TMA. Reabsorbing DTPI medial L heel(L)3cm x (W)5.3cm. Base of wound brown with fluctuance. Unstageable Pressure injury distal/lateral L foot. !00% stable dry eschar noted . edges adherent bbut dry . No erythema,induration or fluctuance periwound. Wound Tx are effective and continued as care-planned.All wound Prevention protocols continued as care-planned. Pt has an APM/ANA mattress overlay and positioned with pillow on her side ,both heels floated off mattress with pillow.+
[2019-11-22] MEDS: DAPTOmycin 500 MG in NS 50 ML IV SCH (16:29)
--- NOTE | 2019-11-22 17:35 | Internal Med Progress Note ---
Subjective Date of Service: Nov 22, 2019 Physician Name Fredrick Prince Attending Physician Fredrick Prince MD Current Medications Medications (Trade) Dose Ordered Sig/Inna Route PRN Reason Start Time Stop Time Status Last Admin Dose Admin Acetaminophen (Tylenol) 650 mg Q4H PRN GT fever 100.4, mild pain 11/10/19 10:00 12/01/19 23:14 11/22/19 15:58 Acetaminophen (Tylenol) 650 mg Q4H PRN RECTAL Temp >100.5 11/08/19 21:30 12/08/19 21:29 11/18/19 21:43 Albuterol/ Ipratropium (Albuterol/ Ipratropium) 3 ml Q4H PRN HHN Shortness of Breath 11/20/19 08:02 11/25/19 08:01 Ascorbic Acid (Vitamin C) 500 mg DAILY GT 11/02/19 09:00 12/02/19 08:59 11/22/19 09:10 Carbidopa/Levodopa (Sinemet 25/100) 2 tab QID GT 11/02/19 09:00 12/02/19 08:59 11/22/19 17:30 Chlorhexidine Gluconate (Josefa-Hex 2%) 1 applic DAILY@2000 TOPIC 11/15/19 20:00 02/13/20 19:59 11/21/19 20:10 Daptomycin 500 mg/ Sodium Chloride 50 ml @ 100 mls/hr Q24H IV 11/20/19 16:00 11/27/19 15:59 11/22/19 16:29 Dextrose 1,000 ml @ 0 mls/hr Q24H PRN IV PN interrupted or unavailable 11/09/19 20:00 12/09/19 19:59 Dextrose (Dextrose 50%) 25 ml Q30M PRN IV Hypoglycemia 11/09/19 20:00 02/07/20 19:59 Dextrose (Dextrose 50%) 50 ml Q30M PRN IV Hypoglycemia 11/09/19 20:00 02/07/20 19:59 Docusate Sodium (Colace) 100 mg DAILY GT 11/02/19 09:00 12/02/19 08:59 11/22/19 09:09 Entacapone (Comtan) 400 mg THREE TIMES A DAY ORAL 11/10/19 13:00 12/02/19 17:59 11/22/19 17:30 Fat Emulsion Intravenous 192 ml/Amino Acids/ Electrolytes/ Dextrose 1,872 ml @ 78 mls/hr Q24H IV 11/11/19 20:00 11/22/19 19:59 11/21/19 19:26 Fat Emulsion Intravenous 96 ml/ Amino Acids/ Electrolytes/ Dextrose 936 ml @ 39 mls/hr Q24H IV 11/22/19 20:00 12/22/19 19:59 Hydroxyurea (Hydrea) 500 mg DAILY ORAL 11/22/19 09:00 11/27/19 08:59 11/22/19 09:10 Insulin Aspart (NovoLOG) Q6HR SUBQ 11/06/19 12:00 02/04/20 11:59 11/22/19 05:03 Metoclopramide HCl (Reglan) 5 mg Q6H PRN IVP nausea or vomiting 11/01/19 23:15 12/01/19 23:14 11/02/19 12:51 Multivitamins (Multivitamins W/ Minerals 15ml Liquid) 15 ml DAILY GT 11/02/19 09:00 12/02/19 08:59 11/22/19 09:09 Ondansetron HCl (Zofran) 4 mg Q4H PRN IVP Nausea & Vomiting 11/01/19 23:15 12/01/19 23:14 Pantoprazole (Protonix) 40 mg DAILY IVP 11/05/19 09:00 12/05/19 08:59 11/22/19 09:09 Polyethylene Glycol (Miralax) 17 gm DAILY PRN GT Constipation 11/02/19 08:30 12/02/19 07:59 Polymyxin B Sulfate 615366 units/Dextrose 550 ml @ 550 mls/hr EVERY 12 HOURS IV 11/21/19 21:00 11/28/19 20:59 11/22/19 09:10 Quetiapine Fumarate (SEROqueL) 50 mg QHS GT 11/02/19 21:00 12/17/19 20:59 11/21/19 20:10 Sennosides (Senokot) 8.6 mg QHS GT 11/02/19 21:00 12/02/19 20:59 11/21/19 20:10 Tigecycline 50 mg/ Sodium Chloride 110 ml @ 220 mls/hr Q12H IVPB 11/20/19 00:00 11/27/19 00:00 11/22/19 13:28 Zinc Oxide (Desitin) 1 applic FOUR TIMES A DAY TOPIC 11/04/19 14:00 12/04/19 13:59 11/22/19 17:30 Allergies: Coded Allergies: PENICILLINS (Verified Allergy, Unknown, 11/01/19) VANCOMYCIN (Verified Allergy, Unknown, 11/01/19) Uncoded Allergies: PENICI (Allergy, Unknown, 11/01/19) Subjective s/p EGD today and PEG placed J was unsuccessful Family appealed DC to LTACH non verbal, chronic trach on TPN Objective Last Vital Signs Date Time Temp Pulse Resp B/P (MAP) Pulse Ox O2 Delivery O2 Flow Rate FiO2 11/22/19 16:00 126 11/22/19 14:50 25 40 11/22/19 12:00 Mechanical Ventilator 11/22/19 12:00 97.0 124/61 (82) 98 Laboratory Tests Test 11/21/19 23:42 11/22/19 05:30 11/22/19 06:00 POC Whole Blood Glucose Pending White Blood Count 112.7 K/UL (4.8-10.8) *H Red Blood Count 2.55 M/UL (4.20-5.40) L Hemoglobin 7.3 G/DL (12.0-16.0) L Hematocrit 23.1 % (37.0-47.0) L Mean Corpuscular Volume 91 FL (80-99) Mean Corpuscular Hemoglobin 28.8 PG (27.0-31.0) Mean Corpuscular Hemoglobin Concent 31.8 G/DL (32.0-36.0) L Red Cell Distribution Width 15.4 % (11.6-14.8) H Platelet Count 28 K/UL (150-450) L Mean Platelet Volume 10.1 FL (6.5-10.1) Neutrophils (%) (Auto) % (45.0-75.0) Lymphocytes (%) (Auto) % (20.0-45.0) Monocytes (%) (Auto) % (1.0-10.0) Eosinophils (%) (Auto) % (0.0-3.0) Basophils (%) (Auto) % (0.0-2.0) Differential Total Cells Counted 100 Neutrophils % (Manual) 2 % (45-75) L Lymphocytes % (Manual) 14 % (20-45) L Monocytes % (Manual) 18 % (1-10) H Eosinophils % (Manual) 2 % (0-3) Basophils % (Manual) 0 % (0-2) Blast Cells % 64 % (0-0) *H Band Neutrophils 0 % (0-8) Nucleated Red Blood Cells 6 /100 WBC Platelet Estimate Decreased L Platelet Morphology Normal Hypochromasia 3+ Anisocytosis 1+ Urine Color Yellow Urine Appearance Slightly cloudy Urine pH 5 (4.5-8.0) Urine Specific [place] 1.015 (1.005-1.035) Urine Protein 2+ (NEGATIVE) H Urine Glucose (UA) Negative (NEGATIVE) Urine Ketones Negative (NEGATIVE) Urine Blood 2+ (NEGATIVE) H Urine Nitrite Negative (NEGATIVE) Urine Bilirubin Negative (NEGATIVE) Urine Urobilinogen Normal MG/DL (0.0-1.0) Urine Leukocyte Esterase Negative (NEGATIVE) Urine RBC 10-15 /HPF (0 - 2) H Urine WBC 0-2 /HPF (0 - 2) Urine Squamous Epithelial Cells Few /LPF (NONE/OCC) Urine Bacteria Moderate /HPF (NONE) H Urine Yeast Many /HPF (NONE) H Intake and Output 11/21/19 11/22/19 19:00 07:00 Intake Total 1678 ml 1838 ml Output Total 650 ml 1250 ml Balance 1028 ml 588 ml Intake Free Water 50 ml 50 ml IV Total 1568 ml 1668 ml Tube Feeding 60 ml 120 ml Output Urine Total 650 ml 1250 ml # Bowel Movements 1 [address] J tube .PEG placed 11/20 feeeding started , on TPN Assessment/Plan Assessment/Plan Impression: sepsis on admission septic shock line sepsis acinectobacter bacteremia fungal cystitis 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 consideration of hydroxyurea per DR Amador due to leukocytosis s/p platelet tx one unit 11/14 prbc tx one unit 11/14 remove 1st PICC IVF NS plus TPN ltach bobby transfer d/w family. /son NOT in agreement. appealed DC. CM f/u abx per ID worsening wbc due AML flare microfungin on TPN. d/w GI unable to put PEG J tube earlier due to large whole KCL IV replete prn s/p Mg sulfate IV wound care f/u cx ID f/u electrolyte replete as needed enteral feeding ventilator pulm HHN iker pain control dc aricept, allopurinol DNAR status Fredrick Prince MD Internal Medicine [phone] time spent today 50 minutes stamp time on this note may NOT be the actual encounter time. Fredrick Prince MD Nov 22, 2019 17:35
--- NOTE | 2019-11-22 17:37 | Internal Med Progress Note ---
Subjective Date of Service: Nov 22, 2019 Physician Name Fredrick Prince Attending Physician Fredrick Prince MD Current Medications Medications (Trade) Dose Ordered Sig/Inna Route PRN Reason Start Time Stop Time Status Last Admin Dose Admin Acetaminophen (Tylenol) 650 mg Q4H PRN GT fever 100.4, mild pain 11/10/19 10:00 12/01/19 23:14 11/22/19 15:58 Acetaminophen (Tylenol) 650 mg Q4H PRN RECTAL Temp >100.5 11/08/19 21:30 12/08/19 21:29 11/18/19 21:43 Albuterol/ Ipratropium (Albuterol/ Ipratropium) 3 ml Q4H PRN HHN Shortness of Breath 11/20/19 08:02 11/25/19 08:01 Ascorbic Acid (Vitamin C) 500 mg DAILY GT 11/02/19 09:00 12/02/19 08:59 11/22/19 09:10 Carbidopa/Levodopa (Sinemet 25/100) 2 tab QID GT 11/02/19 09:00 12/02/19 08:59 11/22/19 17:30 Chlorhexidine Gluconate (Josefa-Hex 2%) 1 applic DAILY@2000 TOPIC 11/15/19 20:00 02/13/20 19:59 11/21/19 20:10 Daptomycin 500 mg/ Sodium Chloride 50 ml @ 100 mls/hr Q24H IV 11/20/19 16:00 11/27/19 15:59 11/22/19 16:29 Dextrose 1,000 ml @ 0 mls/hr Q24H PRN IV PN interrupted or unavailable 11/09/19 20:00 12/09/19 19:59 Dextrose (Dextrose 50%) 25 ml Q30M PRN IV Hypoglycemia 11/09/19 20:00 02/07/20 19:59 Dextrose (Dextrose 50%) 50 ml Q30M PRN IV Hypoglycemia 11/09/19 20:00 02/07/20 19:59 Docusate Sodium (Colace) 100 mg DAILY GT 11/02/19 09:00 12/02/19 08:59 11/22/19 09:09 Entacapone (Comtan) 400 mg THREE TIMES A DAY ORAL 11/10/19 13:00 12/02/19 17:59 11/22/19 17:30 Fat Emulsion Intravenous 192 ml/Amino Acids/ Electrolytes/ Dextrose 1,872 ml @ 78 mls/hr Q24H IV 11/11/19 20:00 11/22/19 19:59 11/21/19 19:26 Fat Emulsion Intravenous 96 ml/ Amino Acids/ Electrolytes/ Dextrose 936 ml @ 39 mls/hr Q24H IV 11/22/19 20:00 12/22/19 19:59 Hydroxyurea (Hydrea) 500 mg DAILY ORAL 11/22/19 09:00 11/27/19 08:59 11/22/19 09:10 Insulin Aspart (NovoLOG) Q6HR SUBQ 11/06/19 12:00 02/04/20 11:59 11/22/19 05:03 Metoclopramide HCl (Reglan) 5 mg Q6H PRN IVP nausea or vomiting 11/01/19 23:15 12/01/19 23:14 11/02/19 12:51 Multivitamins (Multivitamins W/ Minerals 15ml Liquid) 15 ml DAILY GT 11/02/19 09:00 12/02/19 08:59 11/22/19 09:09 Ondansetron HCl (Zofran) 4 mg Q4H PRN IVP Nausea & Vomiting 11/01/19 23:15 12/01/19 23:14 Pantoprazole (Protonix) 40 mg DAILY IVP 11/05/19 09:00 12/05/19 08:59 11/22/19 09:09 Polyethylene Glycol (Miralax) 17 gm DAILY PRN GT Constipation 11/02/19 08:30 12/02/19 07:59 Polymyxin B Sulfate 823115 units/Dextrose 550 ml @ 550 mls/hr EVERY 12 HOURS IV 11/21/19 21:00 11/28/19 20:59 11/22/19 09:10 Quetiapine Fumarate (SEROqueL) 50 mg QHS GT 11/02/19 21:00 12/17/19 20:59 11/21/19 20:10 Sennosides (Senokot) 8.6 mg QHS GT 11/02/19 21:00 12/02/19 20:59 11/21/19 20:10 Tigecycline 50 mg/ Sodium Chloride 110 ml @ 220 mls/hr Q12H IVPB 11/20/19 00:00 11/27/19 00:00 11/22/19 13:28 Zinc Oxide (Desitin) 1 applic FOUR TIMES A DAY TOPIC 11/04/19 14:00 12/04/19 13:59 11/22/19 17:30 Allergies: Coded Allergies: PENICILLINS (Verified Allergy, Unknown, 11/01/19) VANCOMYCIN (Verified Allergy, Unknown, 11/01/19) Uncoded Allergies: PENICI (Allergy, Unknown, 11/01/19) ROS Limited/Unobtainable: Yes All Systems: reviewed and negative except above Subjective s/p EGD and PEG placed J was unsuccessful TF increase , TPN decreased Family appealed DC to LTACH non verbal, chronic trach on TPN Objective Last Vital Signs Date Time Temp Pulse Resp B/P (MAP) Pulse Ox O2 Delivery O2 Flow Rate FiO2 11/22/19 16:00 126 11/22/19 14:50 25 40 11/22/19 12:00 Mechanical Ventilator 11/22/19 12:00 97.0 124/61 (82) 98 General Appearance: no apparent distress Neck: other - +trach Cardiovascular: normal rate, regular rhythm, systolic murmur Respiratory/Chest: decreased breath sounds, rhonchi - bilaterally Abdomen: normal bowel sounds, non tender, soft, other - +PEG Neurologic: aphasia Skin: warm/dry Laboratory Tests Test 11/21/19 23:42 11/22/19 05:30 11/22/19 06:00 POC Whole Blood Glucose Pending White Blood Count 112.7 K/UL (4.8-10.8) *H Red Blood Count 2.55 M/UL (4.20-5.40) L Hemoglobin 7.3 G/DL (12.0-16.0) L Hematocrit 23.1 % (37.0-47.0) L Mean Corpuscular Volume 91 FL (80-99) Mean Corpuscular Hemoglobin 28.8 PG (27.0-31.0) Mean Corpuscular Hemoglobin Concent 31.8 G/DL (32.0-36.0) L Red Cell Distribution Width 15.4 % (11.6-14.8) H Platelet Count 28 K/UL (150-450) L Mean Platelet Volume 10.1 FL (6.5-10.1) Neutrophils (%) (Auto) % (45.0-75.0) Lymphocytes (%) (Auto) % (20.0-45.0) Monocytes (%) (Auto) % (1.0-10.0) Eosinophils (%) (Auto) % (0.0-3.0) Basophils (%) (Auto) % (0.0-2.0) Differential Total Cells Counted 100 Neutrophils % (Manual) 2 % (45-75) L Lymphocytes % (Manual) 14 % (20-45) L Monocytes % (Manual) 18 % (1-10) H Eosinophils % (Manual) 2 % (0-3) Basophils % (Manual) 0 % (0-2) Blast Cells % 64 % (0-0) *H Band Neutrophils 0 % (0-8) Nucleated Red Blood Cells 6 /100 WBC Platelet Estimate Decreased L Platelet Morphology Normal Hypochromasia 3+ Anisocytosis 1+ Urine Color Yellow Urine Appearance Slightly cloudy Urine pH 5 (4.5-8.0) Urine Specific [place] 1.015 (1.005-1.035) Urine Protein 2+ (NEGATIVE) H Urine Glucose (UA) Negative (NEGATIVE) Urine Ketones Negative (NEGATIVE) Urine Blood 2+ (NEGATIVE) H Urine Nitrite Negative (NEGATIVE) Urine Bilirubin Negative (NEGATIVE) Urine Urobilinogen Normal MG/DL (0.0-1.0) Urine Leukocyte Esterase Negative (NEGATIVE) Urine RBC 10-15 /HPF (0 - 2) H Urine WBC 0-2 /HPF (0 - 2) Urine Squamous Epithelial Cells Few /LPF (NONE/OCC) Urine Bacteria Moderate /HPF (NONE) H Urine Yeast Many /HPF (NONE) H Intake and Output 11/21/19 11/22/19 19:00 07:00 Intake Total 1678 ml 1838 ml Output Total 650 ml 1250 ml Balance 1028 ml 588 ml Intake Free Water 50 ml 50 ml IV Total 1568 ml 1668 ml Tube Feeding 60 ml 120 ml Output Urine Total 650 ml 1250 ml # Bowel Movements 1 [address] J tube .PEG placed 11/20 feeding increased, TPN decreased hgb 7.3 Assessment/Plan Status: stable, unchanged Assessment/Plan Impression: sepsis on admission septic shock line sepsis acinectobacter bacteremia fungal cystitis 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 hydroxyurea per DR Amador due to leukocytosis will transfuse one unit PRBC s/p platelet tx one unit 11/14 prbc tx one unit 11/14 remove 1st PICC decrease TPN ltach bobby transfer d/w family. /son NOT in agreement. appealed DC. CM f/u abx per ID worsening wbc due AML flare microfungin KCL IV replete prn s/p Mg sulfate IV wound care f/u cx ID f/u electrolyte replete as needed enteral feeding ventilator pulm HHN dong pain control dc aricept, allopurinol DNAR status Fredrick Prince MD Internal Medicine [phone] time spent today 50 minutes stamp time on this note may NOT be the actual encounter time. Fredrick Prince MD Nov 22, 2019 17:37
--- NOTE | 2019-11-22 19:05 | NUR ---
HAND-OFF: Report given to Terra Rodriguez RN.
--- NOTE | 2019-11-22 19:06 | NUR ---
"NURSE NOTES: Received patient from SRIKANTH Cortez. Patient in bed with eyes open- obtunded. No signs or symptoms of acute cardiac or respiratory distress noted, pt. appears to be tolerating current vent settings as ordered: A/C 20 | TV 400 | FiO2 40% | Peep 5- No respiratory distress noted. Bailey intact and draining to gravity. Patient appears to be clean and dry. Noted with left upper arm PICC double lumen running TPN at 78 mL/hour, pt. has G tube Running Glucerna 1.2 @30cc/hr-no residual noted, Safety measures continued, skin precautions observed, Bed in lowest and locked position. HOB elevated- aspiration precautions observed, Call light within reach. Side rails up x3. Will continue to monitor and with plan of care. Addendum: 11/22/19 at 1956 by BERRY PADILLA RN RN side rails padded for seizure precautions- no seizure activity noted."
[2019-11-22] MEDS: Dyna-Hex 2% Top Sol 2oz TOPIC SCH (19:29)
--- NOTE | 2019-11-22 19:52 | NUR ---
NURSE NOTES: pt. feels hot to touch- temp 102.6- cooling measures applied and Tylenol administered- will continue to monitor pt. and with plan of care. pt. remains stable
[2019-11-22 19:58] VITALS: BP 102/59
[2019-11-22] MEDS ORDERED: TPN IV SCH (20:00)
[2019-11-22] MEDS ORDERED: FAT EMULSION 20% IV SCH (20:00)
[2019-11-22] MEDS: Sennosides 8.6mg tab GT SCH (20:00)
--- NOTE | 2019-11-22 20:00 | NUR ---
NURSE NOTES: blood not administered as pt. has a temp of 102.6- cooling measures continued, Tylenol administered- will continue to monitor pt. and with plan of care.
[2019-11-23] VITALS: BP 107/53
--- NOTE | 2019-11-23 00:09 | NUR ---
NURSE NOTES: pt. is warm to touch - temp now 99.7 axillary- continuing with cooling measures and Tylenol admin- pt. remains stable- but unable transfuse blood- will continue to monitor pt.
[2019-11-23] MEDS: Acetaminophen 650mg/20.3ml GT PRN ×2 (00:13→22:44)
--- NOTE | 2019-11-23 03:45 | NUR ---
NURSE NOTES: patient appears to be trending up with fever now 100.4- - cooling measures continued, will administer Tylenol when due- unable to transfuse blood as pt. is continuing with fever-will continue to monitor pt.
[2019-11-23 04:00] VITALS: BP 111/80
[2019-11-23 04:56] LABS: HEMATOCRIT 24.7 % (37.0-47.0); HEMOGLOBIN 7.8 G/DL (12.0-16.0); MEAN CORPUSCULAR VOLUME 91 FL (80-99); PLATELET COUNT 22 K/UL (150-450); RED BLOOD COUNT 2.71 M/UL (4.20-5.40); RED CELL DISTRIBUTION WIDTH 15.4 % (11.6-14.8)
[2019-11-23] MEDS ORDERED: Acetaminophen 650mg/20.3ml GT PRN (05:15)
--- NOTE | 2019-11-23 05:21 | NUR ---
NURSE NOTES: Entered wrong meds in patients chart- but stopped those ordered incorrectly and correctly put in correct patients chart.
[2019-11-23 05:34] LABS: ALANINE AMINOTRANSFERASE < 6 U/L (12-78); ALBUMIN 1.4 G/DL (3.4-5.0); ALBUMIN/GLOBULIN RATIO 0.4 (1.0-2.7); ALKALINE PHOSPHATASE 179 U/L (46-116); ANION GAP 8 mmol/L (5-15); ASPARTATE AMINO TRANSFERASE 55 U/L (15-37); BILIRUBIN,TOTAL 0.6 MG/DL (0.2-1.0); BLOOD UREA NITROGEN 41 mg/dL (7-18); CALCIUM 7.4 MG/DL (8.5-10.1); CARBON DIOXIDE 29 MMOL/L (21-32); CHLORIDE 106 MMOL/L (98-107); CREATININE 1.1 MG/DL (0.55-1.30); POTASSIUM 4.2 MMOL/L (3.5-5.1); SODIUM 142 MMOL/L (136-145)
--- NOTE | 2019-11-23 05:41 | NUR ---
NURSE NOTES: notified Kelli at lab that I entered another pts. order for blood transfusion in patients chart- but only stopped that order. But that patient still has order for 1unPRBC but was not able to transfuse as pt. has had a fever all night.
[2019-11-23] MEDS ORDERED: Piperacillin/Tazobactam 3.375 GM in NS 110 ML IVPB SCH (06:00)
[2019-11-23] MEDS: NovoLOG Insulin Flexpen SUBQ SCH ×4 (06:00→23:16)
[2019-11-23 06:14] LABS: CREATINE KINASE 17 U/L (26-308)
--- NOTE | 2019-11-23 07:02 | NUR ---
HAND-OFF: Report given to Gladys Poole, SRIKANTH - pt. remains stable and no signs of distress noted- aware to f/u on any abnormal labs. Addendum: 11/23/19 at 0706 by BERRY PADILLA RN RN Aware to f/u on 1 unit PRBC.
--- NOTE | 2019-11-23 07:10 | NUR ---
NURSE NOTES: Received report from SRIKANTH lElison. The patient is resting on the bed without acute distress or shortness of breath. The patient is trached, and communication made by facial expression and body movement. The patient is on following ventilator setting as ordered: Shiley 6, AC 20, TV 400, FiO2 45%, PEEP 5 and oxygen saturation is 100%. The patient has newly inserted G-tube that is intact and patent and is on Glucerna 1.2 @30mL/hr with no residual. The patient's abdomen is distended and tender, and Dr. Reeves was notified. The patient's Bailey is intact and patent and draining by gravity. Skin issue noted and dressing is intact. The patient has MATTIE double lumen PICC line that is intact and patent and running TPN @39mL/hr per order. Per SRIKANTH Ellison, the physician ordered 1unit pRBC transfusion on 11/22/2019 but was not able to do transfusion last night due to fever. Will follow up the vital signs and do transfusion after clarification. The patient's bed in the lowest position, call light in reach, and fall and aspiration precaution reinforced. Will follow up the order and lab. Will closely monitor the patient. Will continue plan of care.
[2019-11-23 08:00] VITALS: BP 125/69
--- NOTE | 2019-11-23 08:00 | NUR ---
NURSE NOTES: Stable vital signs noted. Oral and trach suction done. Will closely monitor the patient. Will continue plan of care.
--- NOTE | 2019-11-23 08:26 | NUR ---
RD ASSESSMENT & RECOMMENDATIONS SEE CARE ACTIVITY FOR COMPLETE ASSESSMENT DAILY ESTIMATED NEEDS: Needs based on Critical care, wounds, 64kg 22-28 kcals/kg 8046-4945 total kcals 1.25-2 g protein/kg 80-128 g total protein 25-30 mL/kg 9700-4099 total fluid mLs NUTRITION DIAGNOSIS: Swallowing difficulty r/t respiratory status as evidenced by pt is trach and peg dep. CURRENT TF:Glucerna 1.2 @ 30ml/hr x 24 hrs (cont on TPN bu lowered by 50%, running @ 39ml/hr) ENTERAL NUTRITION RECOMMENDATIONS: Glucerna 1.2 @ 60ml/hr x 24 hrs to provide 1440ml, 1728kcal, 86g prot, 1159ml free water * W/ continued TF tolerance, increase goal rate to 60ml/hr x 24 hrs -> meets 100% est kcal/prot needs, DC TPN * Advance 10ml q 4-6 hrs as tolerated to goal * HOB over 30 degrees/ water flush 160ml q 6hrs PARENTERAL NUTRITION RECOMMENDATIONS: D/AA Rate: 70 IL Rate: 8 Total Rate: 78 Volume: 1872 % Dextrose: 18 % AA: 5.5 Energy (kcals/kg): 1781 Protein (g/kg protein): 92 Nonprotein KCALS: 1412 GIR (mg CHO/kg/min): 3.3 % Fat KCALS: 22 NCP: N Ratio: 96:1 TPN Comment: - D18%, AA 5.5% @ 70ml/hr w/ 20%IL @ 8ml/hr - all 3:1 -> currently lowered by 50% -----------> DC TPN w/ advanced TF goal rate ADDITIONAL RECOMMENDATIONS: 1) Per SNF: 65 inches (5'5"); 141 lbs (64.1kg) 2) Wound care: add Peter via GT when TF well tolerated @ goal 3) Monitor for TF rate advancement and tolerance, ability to DC TPN 4) Monitor lytes, BG, and LFT's on TPN -> AST and ALP trending up .
--- NOTE | 2019-11-23 08:46 | NUR ---
RADIOLOGY: PCXR COMPLETED 0830 HRS. NF
[2019-11-23] MEDS: Multivitamins W/Minerals 15 ML UDC GT SCH (09:00)
--- NOTE | 2019-11-23 09:15 | NUR ---
HAND-OFF: Report given to SRIKANTH Anglin. The patient is stable at this time. Endorsed plan of care.
--- NOTE | 2019-11-23 10:09 | General Progress Note ---
Assessment/Plan Status: stable, unchanged Assessment/Plan: 1. AML. 2. Respiratory failure with vent. 3. Dysphagia with G-tube. 4. Ovarian mass. 5. Advanced Parkinson disease. 6. Anemia requiring blood transfusion in the past. 7. Dementia. 8. Pancytopenia. s/p EGD and peg placement dc TPN increase TF poor prognosis Subjective ROS Limited/Unobtainable: No Allergies: Coded Allergies: PENICILLINS (Verified Allergy, Unknown, 11/01/19) VANCOMYCIN (Verified Allergy, Unknown, 11/01/19) Uncoded Allergies: PENICI (Allergy, Unknown, 11/01/19) Objective Last 24 Hour Vital Signs Date Time Temp Pulse Resp B/P (MAP) Pulse Ox O2 Delivery O2 Flow Rate FiO2 11/23/19 09:00 118 11/23/19 08:00 40 11/23/19 08:00 Mechanical Ventilator 11/23/19 08:00 98.1 113 19 125/69 (87) 100 11/23/19 06:31 120 21 40 11/23/19 04:00 100.4 118 22 111/80 (90) 98 11/23/19 04:00 Mechanical Ventilator 11/23/19 04:00 40 11/23/19 03:26 124 11/23/19 03:05 112 28 40 11/23/19 00:43 99.1 11/23/19 00:00 Mechanical Ventilator 11/23/19 00:00 40 11/23/19 00:00 99.7 116 24 107/53 (71) 99 11/22/19 23:36 121 11/22/19 23:29 120 25 40 11/22/19 20:00 Mechanical Ventilator 11/22/19 20:00 40 11/22/19 19:58 102.6 122 22 102/59 (73) 99 11/22/19 19:26 121 11/22/19 19:08 115 25 40 11/22/19 16:00 97.0 124 22 129/61 (83) 95 11/22/19 16:00 126 11/22/19 16:00 Mechanical Ventilator 11/22/19 16:00 40 11/22/19 14:50 125 25 40 11/22/19 12:00 Mechanical Ventilator 11/22/19 12:00 40 11/22/19 12:00 97.0 101 22 124/61 (82) 98 11/22/19 11:33 119 11/22/19 11:30 103 21 40 Intake and Output 11/22/19 11/23/19 19:00 07:00 Intake Total 2046 ml 1628 ml Output Total 600 ml 450 ml Balance 1446 ml 1178 ml Intake Free Water 160 ml 50 ml IV Total 1646 ml 1218 ml Tube Feeding 240 ml 360 ml Output Urine Total 600 ml 450 ml # Bowel Movements 3 1 Laboratory Tests 11/22/19 22:45: POC Whole Blood Glucose [Pending] 11/23/19 03:45: White Blood Count 127.0*H, Red Blood Count 2.71L, Hemoglobin 7.8L, Hematocrit 24.7L, Mean Corpuscular Volume 91, Mean Corpuscular Hemoglobin 28.7, Mean Corpuscular Hemoglobin Concent 31.5L, Red Cell Distribution Width 15.4H, Platelet Count 22L, Mean Platelet Volume 9.7, Neutrophils (%) (Auto) , Lymphocytes (%) (Auto) , Monocytes (%) (Auto) , Eosinophils (%) (Auto) , Basophils (%) (Auto) , Neutrophils % (Manual) [Pending], Lymphocytes % (Manual) [Pending], Platelet Estimate [Pending], Platelet Morphology [Pending], Sodium Level 142, Potassium Level 4.2, Chloride Level 106, Carbon Dioxide Level 29, Anion Gap 8, Blood Urea Nitrogen 41H, Creatinine 1.1, Estimat Glomerular Filtration Rate 48.5, Glucose Level 116H, Calcium Level 7.4L, Total Bilirubin 0.6, Aspartate Amino Transf (AST/SGOT) 55H, Alanine Aminotransferase (ALT/SGPT) < 6L, Alkaline Phosphatase 179H, Total Creatine Kinase 17L, Total Protein 5.1L, Albumin 1.4L, Globulin 3.7, Albumin/Globulin Ratio 0.4L 11/23/19 06:00: POC Whole Blood Glucose [Pending] Height (Feet): 5 Height (Inches): 3.00 Weight (Pounds): 161 General Appearance: lethargic EENT: normal ENT inspection Neck: supple Cardiovascular: normal rate Respiratory/Chest: decreased breath sounds Abdomen: normal bowel sounds, non tender, soft Extremities: non-tender Negro Reeves MD Nov 23, 2019 10:09
[2019-11-23] MEDS: Pantoprazole Inj IVP SCH (11:03)
[2019-11-23] MEDS: Levodopa/Carbidopa 25/100 tab GT SCH ×4 (11:04→20:30)
[2019-11-23] MEDS: Docusate 100mg/10ml Liq GT SCH (11:04)
[2019-11-23] MEDS: Hydroxyurea 500mg cap ORAL SCH (11:04)
[2019-11-23] MEDS: Ascorbic Acid 500mg tab GT SCH (11:05)
[2019-11-23] MEDS: Entacapone 200mg tab ORAL SCH ×3 (11:05→18:12)
[2019-11-23] MEDS: Desitin Rash Paste TOPIC SCH ×4 (11:05→20:31)
[2019-11-23] MEDS: Polymyxin B Sulfate 500,000 UNITS in D5W 500ml 550 ML IV SCH (11:41)
[2019-11-23 12:00] VITALS: BP 149/77
[2019-11-23] MEDS: [UNRECOGNIZED DRUG - OTHER] IVPB SCH ×4 (12:18→23:15)
--- NOTE | 2019-11-23 13:57 | NUR ---
CASE MANAGEMENT: REVIEW SI: ANEMIA . UTI . PICC INFECTION w/KLEBSIELLA CRE GJ TUBE PLACEMENT 11/20 T 100.4 HR 124 RR 22 BP 111/80 SAT 98% MECH VENT FIO2 40 WBC 127.0 H/H 7.8/24.7 BUN 41 CALCIUM 7.4 IS: DAPTOMYCIN IV Q24HR TYGACIL Q12HR POLYMYXIN B SULFATE IV Q12HR PROTONIX IV QD J TUBE FEEDING @ 30ML/HR WOUND CARE -- SILVER NITRATE AROUND G-TUBE SITE TRANSFUSE PRBC STEP DOWN UNIT STATUS DCP: PATIENT IS FROM [facility]
--- NOTE | 2019-11-23 14:04 | Pulmonology Progress Note ---
Martha Chandler [employer] 11/23/19 1404: Subjective ROS Limited/Unobtainable: No Constitutional: Reports: other - + vent ; Denies: fever Gastrointestinal/Abdominal: Denies: nausea, vomiting Psychiatric: Reports: other - NA Skin: Denies: rash Musculoskeletal: Reports: other - NA Allergies: Coded Allergies: PENICILLINS (Verified Allergy, Unknown, 11/01/19) VANCOMYCIN (Verified Allergy, Unknown, 11/01/19) Uncoded Allergies: PENICI (Allergy, Unknown, 11/01/19) All Systems: reviewed and negative except above Subjective no signs of resp distress on current vent settings leukocytosis up to 127 low grade fever this am PICC exchanged 11/15 s/p EGD , removal of G tube 10/07 on TPN since 11/08 s/p 1 u PRNC and 1 u plateletpheresis 11/14 -> 11/22 PLT 22, Hgb 7.8 s/p EGD and PEG placement 11/20 Objective Last 24 Hour Vital Signs Date Time Temp Pulse Resp B/P (MAP) Pulse Ox O2 Delivery O2 Flow Rate FiO2 11/23/19 11:00 109 22 40 11/23/19 09:00 118 11/23/19 08:00 40 11/23/19 08:00 98.9 113 19 125/69 (87) 100 11/23/19 08:00 40 11/23/19 08:00 Mechanical Ventilator 11/23/19 08:00 Mechanical Ventilator 11/23/19 08:00 98.1 113 19 125/69 (87) 100 11/23/19 06:31 120 21 40 11/23/19 04:00 100.4 118 22 111/80 (90) 98 11/23/19 04:00 Mechanical Ventilator 11/23/19 04:00 40 11/23/19 03:26 124 11/23/19 03:05 112 28 40 11/23/19 00:43 99.1 11/23/19 00:00 Mechanical Ventilator 11/23/19 00:00 40 11/23/19 00:00 99.7 116 24 107/53 (71) 99 11/22/19 23:36 121 11/22/19 23:29 120 25 40 11/22/19 20:00 Mechanical Ventilator 11/22/19 20:00 40 11/22/19 19:58 102.6 122 22 102/59 (73) 99 11/22/19 19:26 121 11/22/19 19:08 115 25 40 11/22/19 16:00 97.0 124 22 129/61 (83) 95 11/22/19 16:00 126 11/22/19 16:00 Mechanical Ventilator 11/22/19 16:00 40 11/22/19 14:50 125 25 40 Intake and Output 11/22/19 11/23/19 19:00 07:00 Intake Total 2046 ml 1628 ml Output Total 600 ml 450 ml Balance 1446 ml 1178 ml Intake Free Water 160 ml 50 ml IV Total 1646 ml 1218 ml Tube Feeding 240 ml 360 ml Output Urine Total 600 ml 450 ml # Bowel Movements 3 1 Objective General Appearance: no apparent distress, bedridden, vent dependent chronically ill appearing female Lines, tubes and drains: peripheral HEENT: normocephalic, atraumatic, anicteric, status post trach: Shiley #6, secretions small amount, thick consistency, white color , Vent AC 400-40%-20 PEEP 5 Respiratory/Chest: no respiratory distress, few scattered rhonchi Cardiovascular/Chest: regular rhythm, LUE PICC intact Abdomen: non tender, soft, distended, PEG with TF , Extremities: no edema, spastic LE Skin Exam: warm/dry, multiple DTI POA ( sacral, ankle foot, elbow) Neurologic: abnormal gait : bedridden, not responsive Musculoskeletal: atrophy - BLE Laboratory Tests 11/22/19 22:45: POC Whole Blood Glucose [Pending] 11/23/19 03:45: White Blood Count 127.0*H, Red Blood Count 2.71L, Hemoglobin 7.8L, Hematocrit 24.7L, Mean Corpuscular Volume 91, Mean Corpuscular Hemoglobin 28.7, Mean Corpuscular Hemoglobin Concent 31.5L, Red Cell Distribution Width 15.4H, Platelet Count 22L, Mean Platelet Volume 9.7, Neutrophils (%) (Auto) , Lymphocytes (%) (Auto) , Monocytes (%) (Auto) , Eosinophils (%) (Auto) , Basophils (%) (Auto) , Differential Total Cells Counted 100, Neutrophils % ( Manual) 2L, Lymphocytes % (Manual) 9L, Monocytes % (Manual) 16H, Eosinophils % ( Manual) 0, Basophils % (Manual) 0, Blast Cells % 73*H, Band Neutrophils 0, Platelet Estimate DecreasedL, Platelet Morphology Normal, Polychromasia 1+, Hypochromasia 3+, Anisocytosis 1+, Sodium Level 142, Potassium Level 4.2, Chloride Level 106, Carbon Dioxide Level 29, Anion Gap 8, Blood Urea Nitrogen 41H, Creatinine 1.1, Estimat Glomerular Filtration Rate 48.5, Glucose Level 116H , Calcium Level 7.4L, Total Bilirubin 0.6, Aspartate Amino Transf (AST/SGOT) 55H , Alanine Aminotransferase (ALT/SGPT) < 6L, Alkaline Phosphatase 179H, Total Creatine Kinase 17L, Total Protein 5.1L, Albumin 1.4L, Globulin 3.7, Albumin/ Globulin Ratio 0.4L 11/23/19 06:00: POC Whole Blood Glucose [Pending] 11/23/19 12:05: POC Whole Blood Glucose [Pending] Current Medications Medications (Trade) Dose Ordered Sig/Inna Route PRN Reason Start Time Stop Time Status Last Admin Dose Admin Acetaminophen (Tylenol) 650 mg Q4H PRN GT fever 100.4, mild pain 11/10/19 10:00 12/01/19 23:14 11/23/19 00:13 Acetaminophen (Tylenol) 650 mg Q4H PRN RECTAL Temp >100.5 11/08/19 21:30 12/08/19 21:29 11/18/19 21:43 Albuterol/ Ipratropium (Albuterol/ Ipratropium) 3 ml Q4H PRN HHN Shortness of Breath 11/20/19 08:02 11/25/19 08:01 Ascorbic Acid (Vitamin C) 500 mg DAILY GT 11/02/19 09:00 12/02/19 08:59 11/23/19 11:05 Carbidopa/Levodopa (Sinemet 25/100) 2 tab QID GT 11/02/19 09:00 12/02/19 08:59 11/23/19 11:04 Chlorhexidine Gluconate (Josefa-Hex 2%) 1 applic DAILY@2000 TOPIC 11/15/19 20:00 02/13/20 19:59 11/22/19 19:29 Daptomycin 500 mg/ Sodium Chloride 50 ml @ 100 mls/hr Q24H IV 11/20/19 16:00 11/27/19 15:59 11/22/19 16:29 Dextrose (Dextrose 50%) 25 ml Q30M PRN IV Hypoglycemia 11/09/19 20:00 02/07/20 19:59 Dextrose (Dextrose 50%) 50 ml Q30M PRN IV Hypoglycemia 11/09/19 20:00 02/07/20 19:59 Docusate Sodium (Colace) 100 mg DAILY GT 11/02/19 09:00 12/02/19 08:59 11/23/19 11:04 Entacapone (Comtan) 400 mg THREE TIMES A DAY ORAL 11/10/19 13:00 12/02/19 17:59 11/23/19 11:05 Hydroxyurea (Hydrea) 500 mg DAILY ORAL 11/22/19 09:00 11/27/19 08:59 11/23/19 11:04 Insulin Aspart (NovoLOG) Q6HR SUBQ 11/06/19 12:00 02/04/20 11:59 11/23/19 12:14 Metoclopramide HCl (Reglan) 5 mg Q6H PRN IVP nausea or vomiting 11/01/19 23:15 12/01/19 23:14 11/02/19 12:51 Multivitamins (Multivitamins W/ Minerals 15ml Liquid) 15 ml DAILY GT 11/02/19 09:00 12/02/19 08:59 11/23/19 09:00 Ondansetron HCl (Zofran) 4 mg Q4H PRN IVP Nausea & Vomiting 11/01/19 23:15 12/01/19 23:14 Pantoprazole (Protonix) 40 mg DAILY IVP 11/05/19 09:00 12/05/19 08:59 11/23/19 11:03 Polyethylene Glycol (Miralax) 17 gm DAILY PRN GT Constipation 11/02/19 08:30 12/02/19 07:59 Polymyxin B Sulfate 770761 units/Dextrose 550 ml @ 550 mls/hr EVERY 12 HOURS IV 11/21/19 21:00 11/28/19 20:59 11/23/19 11:41 Quetiapine Fumarate (SEROqueL) 50 mg QHS GT 11/02/19 21:00 12/17/19 20:59 11/22/19 20:00 Sennosides (Senokot) 8.6 mg QHS GT 11/02/19 21:00 12/02/19 20:59 11/22/19 20:00 Tigecycline 50 mg/ Sodium Chloride 110 ml @ 220 mls/hr Q12H IVPB 11/20/19 00:00 11/27/19 00:00 11/23/19 12:18 Zinc Oxide (Desitin) 1 applic FOUR TIMES A DAY TOPIC 11/04/19 14:00 12/04/19 13:59 11/23/19 11:05 Assessment/Plan Assessment/Plan ASSESSMENT Chronic respiratory failure ventilator dependent with tracheostomy status Sepsis Bacteremia PICC infection with Klebsiella CRE Persistent fevers Hypotension, possible early shock - resolved Pneumonia, possible aspiration UTI with Klebsiella pneumonia CRE Hypotension, possible early shock - resolved 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), s/p 2 u PRBC Pancytopenia Leukocytosis Dysphagia, feeding by G-tube Advanced Parkinson's disease Severe protein calorie malnutrition Malfunctioning G tube ( inadvertently was removed), s/p EGD and removal of G tube, s/p EGD and new PEG 11/20 Multiple DTI , POA Ovarian mass consistent with neoplasm AML Suspected COVID-19 infection -ruled out Severe protein calorie malnutrition Functional quadriplegia E/lyte abnormalities PLAN OF CARE NAZARIO ( was for a short time in ICU, responded to IVC boluses and albumin boluses) ventilator support, trach care, pulm toilet ABG stable on current settings, keep as is and optimize as needed CXR 11/06 unchanged, SCX 11/05 Providencia , Klebsiella CRE, Pseudomonas CXR 11/09 no change: Tracheostomy remains in place. Basilar infiltrates not significantly changed. Small effusions unchanged CXR 11/12 -Persistent low lung volumes, may be related to shallow inspiration. Bilateral patchy interstitial and air space opacities, most prominent in the left lung base. Stable to mildly worsened compared to the prior exam and is concerning for pneumonia versus pulmonary edema. Possible small left pleural effusion. CXR 11/14 - Slight worsening of bilateral alveolar densities which could be worsening infiltrates and/or edema repeat CXR 11/17 no significant changes from before BCX 10/31 05/28 Staph haemolyticus, likely contaminant BCX 11/01 05/28 MRSA BCX 11/03 NGTD UCX Klebsiella CRE BCX 11/05 ACB MDR, Staph BCX 11/06 NGTD BCX 11/10 GNR UCX 11/10 + yeast BCX 11/13 NGTD abx as per ID recs leuk again with trend up , no fevers for the last 48 hrs RUE PICC was dc with tip cx and LUE PICC inserted by IR 11/15 PICC tip CX + Klebsiella CRE -CT A/P 11/09 BILATERAL SMALL PLEURAL EFFUSIONS AND DEPENDENT INFILTRATES. HUGE SEPTATED CYSTIC MASS ARISING FROM THE PELVIS EXTENDING INTO THE ABDOMEN MOST LIKELY OF OVARIAN ORIGIN. SMALL AMOUNT OF FREE FLUID ADJACENT TO THE HEPATIC AND SPLENIC EDGE WELL IN THE PELVIS. LEFT RENAL STONE. POSSIBLE SLUDGE OR NONCALCIFIED STONES LAYERING IN THE GALLBLADDER. LEFT LOWER QUADRANT STOMA. SEVERE DEGENERATIVE CHANGES AND DEXTROSCOLIOSIS OF THE SPINE. ANASARCA. ECHO with pEF 55%, no discrete vegetation seen COVID 11/01 NGT, Venous Duplex BLE NGT, apply SCD, monitor HH with goal to keep Hgb >7, trend PLT severe pancytopenia likely 2 to AML s/p 1 unit PLT-pheresis and 1 u PRBC leukocytosis 2 to sepsis and partially probably due to malignancy/AML and ovarian Ca replace lytes as needed, monitor volumes asp precautions GT was inadvertently removed s/p replacement 11/03 by GI started TF still leaking plan replacement with GJ tube but cancelled due to leukocytosis s/p EGD 11/07, old G tube removed, unable to place a new one due to a large site , currently on TPN strict aspir precautions s/p new PEG 11/20 TF as per GI and taper TPN if tolerates , fup with GI recs protein supplement as per RD recs continue SNF meds as per primary supportive care bowel regimen wound care as per surgeon recs overall prognosis grave, given sepsis and multiple comorbidities, with superimposed AML and ovarian mass, DNR/DNI status family declined transfer to [place] , bed is apparently no more available case discussed and evaluated by supervising physician Eugene Dan MD 11/23/19 1740: Subjective Allergies: Coded Allergies: PENICILLINS (Verified Allergy, Unknown, 11/01/19) VANCOMYCIN (Verified Allergy, Unknown, 11/01/19) Uncoded Allergies: PENICI (Allergy, Unknown, 11/01/19) Assessment/Plan Assessment/Plan Patient seen and examined with [employer]. Agree with above A&P as it reflects our joint deliberations. Martha Chandler NP Nov 23, 2019 14:04 Eugene Dan MD Nov 23, 2019 17:40
--- NOTE | 2019-11-23 15:33 | Internal Med Progress Note ---
Subjective Date of Service: Nov 23, 2019 Physician Name Fredrick Prince Attending Physician Fredrick Prince MD Current Medications Medications (Trade) Dose Ordered Sig/Inna Route PRN Reason Start Time Stop Time Status Last Admin Dose Admin Acetaminophen (Tylenol) 650 mg Q4H PRN GT fever 100.4, mild pain 11/10/19 10:00 12/01/19 23:14 11/23/19 00:13 Acetaminophen (Tylenol) 650 mg Q4H PRN RECTAL Temp >100.5 11/08/19 21:30 12/08/19 21:29 11/18/19 21:43 Albuterol/ Ipratropium (Albuterol/ Ipratropium) 3 ml Q4H PRN HHN Shortness of Breath 11/20/19 08:02 11/25/19 08:01 Ascorbic Acid (Vitamin C) 500 mg DAILY GT 11/02/19 09:00 12/02/19 08:59 11/23/19 11:05 Carbidopa/Levodopa (Sinemet 25/100) 2 tab QID GT 11/02/19 09:00 12/02/19 08:59 11/23/19 14:19 Chlorhexidine Gluconate (Josefa-Hex 2%) 1 applic DAILY@2000 TOPIC 11/15/19 20:00 02/13/20 19:59 11/22/19 19:29 Daptomycin 500 mg/ Sodium Chloride 50 ml @ 100 mls/hr Q24H IV 11/20/19 16:00 11/27/19 15:59 11/22/19 16:29 Dextrose (Dextrose 50%) 25 ml Q30M PRN IV Hypoglycemia 11/09/19 20:00 02/07/20 19:59 Dextrose (Dextrose 50%) 50 ml Q30M PRN IV Hypoglycemia 11/09/19 20:00 02/07/20 19:59 Docusate Sodium (Colace) 100 mg DAILY GT 11/02/19 09:00 12/02/19 08:59 11/23/19 11:04 Entacapone (Comtan) 400 mg THREE TIMES A DAY ORAL 11/10/19 13:00 12/02/19 17:59 11/23/19 14:15 Hydroxyurea (Hydrea) 500 mg DAILY ORAL 11/22/19 09:00 11/27/19 08:59 11/23/19 11:04 Insulin Aspart (NovoLOG) Q6HR SUBQ 11/06/19 12:00 02/04/20 11:59 11/23/19 12:14 Metoclopramide HCl (Reglan) 5 mg Q6H PRN IVP nausea or vomiting 11/01/19 23:15 12/01/19 23:14 11/02/19 12:51 Multivitamins (Multivitamins W/ Minerals 15ml Liquid) 15 ml DAILY GT 11/02/19 09:00 12/02/19 08:59 11/23/19 09:00 Ondansetron HCl (Zofran) 4 mg Q4H PRN IVP Nausea & Vomiting 11/01/19 23:15 12/01/19 23:14 Pantoprazole (Protonix) 40 mg DAILY IVP 11/05/19 09:00 12/05/19 08:59 11/23/19 11:03 Polyethylene Glycol (Miralax) 17 gm DAILY PRN GT Constipation 11/02/19 08:30 12/02/19 07:59 Polymyxin B Sulfate [id number] units/Dextrose 550 ml @ 550 mls/hr EVERY 12 HOURS IV 11/21/19 21:00 11/28/19 20:59 11/23/19 11:41 Quetiapine Fumarate (SEROqueL) 50 mg QHS GT 11/02/19 21:00 12/17/19 20:59 11/22/19 20:00 Sennosides (Senokot) 8.6 mg QHS GT 11/02/19 21:00 12/02/19 20:59 11/22/19 20:00 Tigecycline 50 mg/ Sodium Chloride 110 ml @ 220 mls/hr Q12H IVPB 11/20/19 00:00 11/27/19 00:00 11/23/19 12:18 Zinc Oxide (Desitin) 1 applic FOUR TIMES A DAY TOPIC 11/04/19 14:00 12/04/19 13:59 11/23/19 14:18 Allergies: Coded Allergies: PENICILLINS (Verified Allergy, Unknown, 11/01/19) VANCOMYCIN (Verified Allergy, Unknown, 11/01/19) Uncoded Allergies: PENICI (Allergy, Unknown, 11/01/19) ROS Limited/Unobtainable: Yes All Systems: reviewed and negative except above Subjective s/p EGD and PEG placed J was unsuccessful TF increase , TPN decreased Family appealed DC to LTACH non verbal, chronic trach on TPN Objective Last Vital Signs Date Time Temp Pulse Resp B/P (MAP) Pulse Ox O2 Delivery O2 Flow Rate FiO2 11/23/19 15:00 108 21 40 11/23/19 08:00 98.9 125/69 (87) 100 11/23/19 08:00 Mechanical Ventilator General Appearance: no apparent distress Cardiovascular: normal rate, regular rhythm Respiratory/Chest: no respiratory distress, no accessory muscle use, rhonchi - right, other - +trach Abdomen: normal bowel sounds, non tender, soft Neurologic: aphasia Laboratory Tests Test 11/22/19 22:45 11/23/19 03:45 11/23/19 06:00 11/23/19 12:05 POC Whole Blood Glucose Pending Pending Pending White Blood Count 127.0 K/UL (4.8-10.8) *H Red Blood Count 2.71 M/UL (4.20-5.40) L Hemoglobin 7.8 G/DL (12.0-16.0) L Hematocrit 24.7 % (37.0-47.0) L Mean Corpuscular Volume 91 FL (80-99) Mean Corpuscular Hemoglobin 28.7 PG (27.0-31.0) Mean Corpuscular Hemoglobin Concent 31.5 G/DL (32.0-36.0) L Red Cell Distribution Width 15.4 % (11.6-14.8) H Platelet Count 22 K/UL (150-450) L Mean Platelet Volume 9.7 FL (6.5-10.1) Neutrophils (%) (Auto) % (45.0-75.0) Lymphocytes (%) (Auto) % (20.0-45.0) Monocytes (%) (Auto) % (1.0-10.0) Eosinophils (%) (Auto) % (0.0-3.0) Basophils (%) (Auto) % (0.0-2.0) Differential Total Cells Counted 100 Neutrophils % (Manual) 2 % (45-75) L Lymphocytes % (Manual) 9 % (20-45) L Monocytes % (Manual) 16 % (1-10) H Eosinophils % (Manual) 0 % (0-3) Basophils % (Manual) 0 % (0-2) Blast Cells % 73 % (0-0) *H Band Neutrophils 0 % (0-8) Platelet Estimate Decreased L Platelet Morphology Normal Polychromasia 1+ Hypochromasia 3+ Anisocytosis 1+ Sodium Level 142 MMOL/L (136-145) Potassium Level 4.2 MMOL/L (3.5-5.1) Chloride Level 106 MMOL/L (98-107) Carbon Dioxide Level 29 MMOL/L (21-32) Anion Gap 8 mmol/L (5-15) Blood Urea Nitrogen 41 mg/dL (7-18) H Creatinine 1.1 MG/DL (0.55-1.30) Estimat Glomerular Filtration Rate 48.5 mL/min (>60) Glucose Level 116 MG/DL (74-106) H Calcium Level 7.4 MG/DL (8.5-10.1) L Total Bilirubin 0.6 MG/DL (0.2-1.0) Aspartate Amino Transf (AST/SGOT) 55 U/L (15-37) H Alanine Aminotransferase (ALT/SGPT) < 6 U/L (12-78) L Alkaline Phosphatase 179 U/L (46-116) H Total Creatine Kinase 17 U/L (26-308) L Total Protein 5.1 G/DL (6.4-8.2) L Albumin 1.4 G/DL (3.4-5.0) L Globulin 3.7 g/dL Albumin/Globulin Ratio 0.4 (1.0-2.7) L Intake and Output 11/22/19 11/23/19 19:00 07:00 Intake Total 2046 ml 1628 ml Output Total 600 ml 450 ml Balance 1446 ml 1178 ml Intake Free Water 160 ml 50 ml IV Total 1646 ml 1218 ml Tube Feeding 240 ml 360 ml Output Urine Total 600 ml 450 ml # Bowel Movements 3 [address] J tube .PEG placed 11/20 feeding increased, TPN decreased hgb 7.3 Assessment/Plan Status: stable, unchanged Assessment/Plan Impression: sepsis on admission septic shock line sepsis acinectobacter bacteremia fungal cystitis 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 MRSA bacteremia leukocytosis klebsiella UTI ovarian mass c/w neoplasm chronic resp failure s trach on ventilator advanced parkinson's diease dementia pancytopenia severe protein calorie malnutrition press sore unstageable, stage 4 sacrum contracture functional quadraplegia s/p PEG bedbound chronic indwelling dong catheter PEG malfunction Rectal VRE colonization hypokalemia Plan: plaln for one unit Plt transfusion d/w ID 3 more days of tigacyclin IV then dc to subacute, d/w CM (SNF does NOT cover cost of tigacyclin) s/p PEG 11/20 so she can come off TPN. hydroxyurea per DR Amador due to leukocytosis will transfuse one unit PRBC s/p platelet tx one unit 11/14 prbc tx one unit 11/14 remove 1st PICC decrease TPN to stop ltach bobby transfer d/w family. /son NOT in agreement. appealed DC. CM f/u abx per ID worsening wbc due AML flare microfungin KCL IV replete prn s/p Mg sulfate IV wound care f/u cx ID f/u electrolyte replete as needed enteral feeding ventilator pulm HHN dong pain control off aricept, allopurinol DNAR status Fredrick Prince MD Internal Medicine [phone] time spent today 40 minutes stamp time on this note may NOT be the actual encounter time. Fredrick Prince MD Nov 23, 2019 15:33
--- NOTE | 2019-11-23 15:38 | Diagnostic Imaging Report ---
Indication: Dyspnea Technique: One view of the chest Comparison: 11/18/2019 Findings: Slightly better inspiration currently. Left pleural effusion and generalized interstitial airspace hazy infiltrates and interstitial congestion persist, probably unchanged allowing for differences in degree of inspiration. Tracheostomy again demonstrated Impression: Unchanged, over 5 days, findings as above.
[2019-11-23 16:00] VITALS: BP 136/69
--- NOTE | 2019-11-23 16:36 | Surgery Progress Note ---
Surgery Progress Note Subjective Symptoms: worse, voiding well, passing flatus Objective Last 24 Hour Vital Signs Date Time Temp Pulse Resp B/P (MAP) Pulse Ox O2 Delivery O2 Flow Rate FiO2 11/23/19 16:00 98.2 111 20 136/69 (91) 99 11/23/19 15:00 108 21 40 11/23/19 12:00 97.7 109 18 149/77 (101) 100 11/23/19 11:32 113 11/23/19 11:00 109 22 40 11/23/19 09:00 118 11/23/19 08:00 40 11/23/19 08:00 98.9 113 19 125/69 (87) 100 11/23/19 08:00 40 11/23/19 08:00 Mechanical Ventilator 11/23/19 08:00 Mechanical Ventilator 11/23/19 08:00 98.1 113 19 125/69 (87) 100 11/23/19 06:31 120 21 40 11/23/19 04:00 100.4 118 22 111/80 (90) 98 11/23/19 04:00 Mechanical Ventilator 11/23/19 04:00 40 11/23/19 03:26 124 11/23/19 03:05 112 28 40 11/23/19 00:43 99.1 11/23/19 00:00 Mechanical Ventilator 11/23/19 00:00 40 11/23/19 00:00 99.7 116 24 107/53 (71) 99 11/22/19 23:36 121 11/22/19 23:29 120 25 40 11/22/19 20:00 Mechanical Ventilator 11/22/19 20:00 40 11/22/19 19:58 102.6 122 22 102/59 (73) 99 11/22/19 19:26 121 11/22/19 19:08 115 25 40 I&O Intake and Output 11/22/19 11/23/19 19:00 07:00 Intake Total 2046 ml 1628 ml Output Total 600 ml 450 ml Balance 1446 ml 1178 ml Intake Free Water 160 ml 50 ml IV Total 1646 ml 1218 ml Tube Feeding 240 ml 360 ml Output Urine Total 600 ml 450 ml # Bowel Movements 3 1 Dressing: saturated Cardiovascular: RSR Respiratory: decreased breath sounds Abdomen: soft, present bowel sounds Extremities: edema, no tenderness, no cyanosis Laboratory Tests Test 11/22/19 22:45 11/23/19 03:45 11/23/19 06:00 11/23/19 12:05 POC Whole Blood Glucose Pending Pending Pending White Blood Count 127.0 K/UL (4.8-10.8) *H Red Blood Count 2.71 M/UL (4.20-5.40) L Hemoglobin 7.8 G/DL (12.0-16.0) L Hematocrit 24.7 % (37.0-47.0) L Mean Corpuscular Volume 91 FL (80-99) Mean Corpuscular Hemoglobin 28.7 PG (27.0-31.0) Mean Corpuscular Hemoglobin Concent 31.5 G/DL (32.0-36.0) L Red Cell Distribution Width 15.4 % (11.6-14.8) H Platelet Count 22 K/UL (150-450) L Mean Platelet Volume 9.7 FL (6.5-10.1) Neutrophils (%) (Auto) % (45.0-75.0) Lymphocytes (%) (Auto) % (20.0-45.0) Monocytes (%) (Auto) % (1.0-10.0) Eosinophils (%) (Auto) % (0.0-3.0) Basophils (%) (Auto) % (0.0-2.0) Differential Total Cells Counted 100 Neutrophils % (Manual) 2 % (45-75) L Lymphocytes % (Manual) 9 % (20-45) L Monocytes % (Manual) 16 % (1-10) H Eosinophils % (Manual) 0 % (0-3) Basophils % (Manual) 0 % (0-2) Blast Cells % 73 % (0-0) *H Band Neutrophils 0 % (0-8) Platelet Estimate Decreased L Platelet Morphology Normal Polychromasia 1+ Hypochromasia 3+ Anisocytosis 1+ Sodium Level 142 MMOL/L (136-145) Potassium Level 4.2 MMOL/L (3.5-5.1) Chloride Level 106 MMOL/L (98-107) Carbon Dioxide Level 29 MMOL/L (21-32) Anion Gap 8 mmol/L (5-15) Blood Urea Nitrogen 41 mg/dL (7-18) H Creatinine 1.1 MG/DL (0.55-1.30) Estimat Glomerular Filtration Rate 48.5 mL/min (>60) Glucose Level 116 MG/DL (74-106) H Calcium Level 7.4 MG/DL (8.5-10.1) L Total Bilirubin 0.6 MG/DL (0.2-1.0) Aspartate Amino Transf (AST/SGOT) 55 U/L (15-37) H Alanine Aminotransferase (ALT/SGPT) < 6 U/L (12-78) L Alkaline Phosphatase 179 U/L (46-116) H Total Creatine Kinase 17 U/L (26-308) L Total Protein 5.1 G/DL (6.4-8.2) L Albumin 1.4 G/DL (3.4-5.0) L Globulin 3.7 g/dL Albumin/Globulin Ratio 0.4 (1.0-2.7) L Plan Problems: (1) Decubitus skin ulcer Assessment & Plan: Pt presented on admission with multiple Pressure Injuries, and contractures. Large Soft Mass noted to lateral R chest ,just inferior to Breast.Soft mass that uis violaceous and denuded. Unstageable Pressure injury R thoracic. Wound presents as partially opened DTPI( L)6cm x (W)8.5cm. 95% Soft eschar flap,5% dee. Marginal erythema along borders In addition scattered linear and purple area periwound. Full thickness stage 4 Sacral Pressure Injury(L)9.3cm x (W)8.7cm. Base of wound is 95% necrotic,but bone is palpable.Mild odor noted. No exudate noted. Non-blanching erythema periwound. Unstageable Pressure Injury R trochanter(L)3.5cm x (W)4.2cm. Base of wound is 90 % soft eschar, 10% pink epithelial. Edges adherent to base of wound .No erythema induration or fluctuance periwound. Unstageable Pressure injury R Ischium(L)3.5cm x (W)2.5cm. Dry eschar at base of wound, edges are adherent with surrounding pink epithelial. No erythema or induration periwound. DTPI L trochanter(L)4cm x (W)1cm. Stable dry eschar L Hallux(L)1.6cm x (W)2cm.NO erythema fluctuance or induration periwound. L 1st metatarsal TMA noted. Stable dry eschar distal/lateral L foot (L)1.5cm x (W)3cm. No erythema, induration or fluctuance periwound. DTPI noted to plantar L foot.(L)0.9cm x (W)0.9cm. Base of wound is fluctuant, purple with maroon borders. Unstageable Pressure injury L lateral Malleolus. Stable dry eschar noted.No erythema or induration periwound. L heel is boggy with non-blanching erythema. Unstageable Pressure injury R Hallux and plantar aspect(L)3.5cm x (W)3.4cm. Soft eschar at base of wound with marginal erythema along borders. R heel is boggy with Non-Blanching erythema. Unstageable Presure injury distal/Lateral R foot . Stable dry eschar noted . No erythema of fluctuance periwound. Tx.Plan: Cleanse Sacral Wound with Saline. Loosely pack with Therahoney impregnated Kerlix.Applpy Moisture Barrier Paste periwound. Cover with Optifoam drsg. Change Daily and prn. Cleanse Soft Mass R chest with Saline. Cover with Optifoam drsg. Change Daily and prn. Cleanse wounds R trochanter, R Ischium with Saline. Apply Moisture Barrier Paste.Cover with Optifoam drsg. Change every 3 days and prn. Apply Moisture Barrier to L trochanter. Cvoer with Optifoam drsg. Change every 3 days and prn. Apply Betadine to wounds R and L foot. Cover each wound with Optifoam drsg. Changee very 3 days and prn. Apply Cavilon Skin Barrier to both heels. Cover each heel with Optifoam drsg. Change every 7 days and prn. APM/ANA Mattress overlay. turn q2h nutritional optimization (2) Malnutrition Assessment & Plan: DAILY ESTIMATED NEEDS: Needs based on Critical care, wounds, 64kg 22-28 kcals/kg 0485-7981 total kcals 1.25-2 g protein/kg 80-128 g total protein 25-30 mL/kg 8171-2347 total fluid mLs NUTRITION DIAGNOSIS: Swallowing difficulty r/t respiratory status as evidenced by pt is trach and peg dep, currently NPO, on TPN, . CURRENT TF:NPO, on TPN PARENTERAL NUTRITION RECOMMENDATIONS: D/AA Rate: 70 IL Rate: 8 Total Rate: 78 Volume: 1872 % Dextrose: 18 % AA: 5.5 Energy (kcals/kg): 1781 Protein (g/kg protein): 92 Nonprotein KCALS: 1412 GIR (mg CHO/kg/min): 3.3 % Fat KCALS: 22 NCP: N Ratio: 96:1 TPN Comment: - Maintain current TPN: -> D18%, AA 5.5% @70ml/hr w/ 20%IL @8ml/hr - all 3:1 - TF at goal meets 100% est needs, provides 28 kcal/kg and 1.4g/kg pro. - GIR<5 - IL <30% ADDITIONAL RECOMMENDATIONS: 1) Per SNF: 65 inches (5'5"); 141 lbs (64.1kg) 2) Wound care: add MEIR BID via GT w/ TF order; hold w/ TPN 3) Monitor lytes, BG, and LFT's on TPN - check updated phos and mag - Watch LFT's, AST trending up, rec updated level (3) Anemia Assessment & Plan: transfused trend labs no active bleeding stool study GI eval (4) UTI (urinary tract infection) (5) Tracheostomy dependence Assessment & Plan: Findings: The left hemidiaphragm is elevated. Atelectatic changes are present in the left lung base. There is minimal right basilar atelectasis. No definite infiltrates. There is a tracheostomy. Impression: Elevated left hemidiaphragm with considerable left basilar atelectasis. Less extensive right basilar atelectasis. Inspiration is suboptimal. Interim development of opacity of the left mid and lower lung. The left hemidiaphragm is obscured. Right lung is probably clear , although there is crowding of bronchovascular lung volumes. Tracheostomy remains. Impression: Since 11/01/2019, interim development of left mid and lower lung infiltrates versus edema and possibly pleural fluid Juan Houser Nov 23, 2019 16:35
--- NOTE | 2019-11-23 17:00 | NUR ---
NURSE NOTES:PT ABD DISTENDED ,LEAKING LIGHT YELLOWISH COLOR AROUND THE GTF SITE NOTED, DR FERGUSON CAME TO SEE THE PT AND MADE AWARE & NOTIFIED.M.D ORDER KUD ABD X-RAY. APPLIED A NEW DSG WITH 4X4 AROUND GT SITE AND SECURED WITH PAPER TAPE. WILL CONT TO MONITOR.
--- NOTE | 2019-11-23 17:27 | Infectious Diseases Prog Note ---
Assessment/Plan Assessment/Plan ASSESSMENT AND PLAN: 1. mrsa bacteremia, acinetobacter bacteremia, medical and health services manager bacteremia, klebsiella uti ( cre) sepsis, shock, fevers, leukocytosis, sacral wound infection, AML, + blasts klebsiella(cre) pna/providencia(esbl) pna/pseudomonas pna fungal uti, ? fungemia, TPN ? line infection - picc placed 11/02/19, repeat blood cultures show acinetobacter line changed - cath tip with klebsiella - CRE - sensitive to tygacil - tygacil x 3 days (11/18) - change daptomycin to bactrim x 1 week - d/w pharmacy and thrombocytopenia rare with bactrim - discontinue polymyxin - s/p full course - diflucan started for fungemia coverage - recurrent fevers - reculture patient, chest x-ray stable, monitor labs, get KUB for abdomen distention - recheck ua/uc, surveillance blood cultures negative - picc line changed 11/16/19 - TTE - no vegetations identified - wound management per surgery - leukocytosis maybe secondary to AML blast crises/flare - tx per Dr. Prince and hem/onc - d/w Dr. Prince 2. Trach, vent respiratory failure. 3. Dysphagia, G-tube. 4. Anemia. 5. Thrombocytopenia - severe 6. Leukocytosis. 7. Malnutrition. 8. Ovarian mass with neoplasm. 9. Parkinson's. 10. Dementia. 11. Skin care per Surgery and protocol. Rash noted but unclear etiology, per station cook. 12. Allergies to penicillin, vancomycin 13. Social history is negative. 14. Family history is noncontributory. 15. MAR was noted. 16. Case was discussed with RN. 17. Continue treatment per primary consultants. 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 Subjective Constitutional: Reports: fever - fever - 11/21 - 102.6, other - + trach and vent HEENT: Reports: congestion Respiratory: Reports: shortness of breath Cardiovascular: Denies: chest pain Gastrointestinal/Abdominal: Denies: nausea, vomiting, diarrhea Genitourinary: Reports: other - + dong Neurologic: Reports: weakness, other - weak and lethargic Psychiatric: Reports: other - NA Skin: Reports: rash - rash - noted, per d/w RN - chronic, does not look like drug rash Hematologic: Reports: bleeding Musculoskeletal: Reports: other - NA Allergies: Coded Allergies: PENICILLINS (Verified Allergy, Unknown, 11/01/19) VANCOMYCIN (Verified Allergy, Unknown, 11/01/19) Uncoded Allergies: PENICI (Allergy, Unknown, 11/01/19) Objective Last 24 Hour Vital Signs Date Time Temp Pulse Resp B/P (MAP) Pulse Ox O2 Delivery O2 Flow Rate FiO2 11/23/19 16:00 98.2 111 20 136/69 (91) 99 11/23/19 15:00 108 21 40 11/23/19 12:00 97.7 109 18 149/77 (101) 100 11/23/19 11:32 113 11/23/19 11:00 109 22 40 11/23/19 09:00 118 11/23/19 08:00 40 11/23/19 08:00 98.9 113 19 125/69 (87) 100 11/23/19 08:00 40 11/23/19 08:00 Mechanical Ventilator 11/23/19 08:00 Mechanical Ventilator 11/23/19 08:00 98.1 113 19 125/69 (87) 100 11/23/19 06:31 120 21 40 11/23/19 04:00 100.4 118 22 111/80 (90) 98 11/23/19 04:00 Mechanical Ventilator 11/23/19 04:00 40 11/23/19 03:26 124 11/23/19 03:05 112 28 40 11/23/19 00:43 99.1 11/23/19 00:00 Mechanical Ventilator 11/23/19 00:00 40 11/23/19 00:00 99.7 116 24 107/53 (71) 99 11/22/19 23:36 121 11/22/19 23:29 120 25 40 11/22/19 20:00 Mechanical Ventilator 11/22/19 20:00 40 11/22/19 19:58 102.6 122 22 102/59 (73) 99 11/22/19 19:26 121 11/22/19 19:08 115 25 40 Height (Feet): 5 Height (Inches): 3.00 Weight (Pounds): 161 General Appearance: other - + trach and vent -*6+ HEENT: normocephalic, atraumatic, anicteric, no JVD, status post trach Respiratory/Chest: crackles/rales, rhonchi - bilaterally Cardiovascular: normal rate, regular rhythm, no gallop/murmur, no JVD Abdomen: hypoactive bowel sounds, distended Genitourinary: other - + dong Extremities: no cyanosis Skin: rash, other - + rash noted - does not look like drug rash, scabies or fungal rash Neurologic/Psychiatric: financial aid II-XII grossly normal, alert, motor weakness, other - lethargic, weak Lymphatic: no neck adenopathy Musculoskeletal: no effusion Chest x-ray - 11/05/19 - IMPRESSION: 1. Interval placement of right PICC line tip to the mid SVC. 2. Hypoventilatory lungs. Bibasilar atelectasis/consolidations, similar to prior study. 3. Probable bilateral pleural effusions. Chest x-ray - 11/07/19- Procedure: XRAY Chest 1v Procedure: XRAY Chest 1v Reason for study: Shortness of breath. Comparison films: 11/05/2019. FINDINGS: Tracheostomy and right PICC line remain in place. There is limited inspiration with bibasilar densities unchanged. Cardiac and mediastinal silhouette are within normal limits. No large effusion seen The bony thorax appear unremarkable. IMPRESSION: NO SIGNIFICANT CHANGE COMPARED TO PREVIOUS EXAM. CT abdomen and pelvis: IMPRESSION: BILATERAL SMALL PLEURAL EFFUSIONS AND DEPENDENT INFILTRATES. HUGE SEPTATED CYSTIC MASS ARISING FROM THE PELVIS EXTENDING INTO THE ABDOMEN MOST LIKELY OF OVARIAN ORIGIN. SMALL AMOUNT OF FREE FLUID ADJACENT TO THE HEPATIC AND SPLENIC EDGE WELL IN THE PELVIS. LEFT RENAL STONE. POSSIBLE SLUDGE OR NONCALCIFIED STONES LAYERING IN THE GALLBLADDER. LEFT LOWER QUADRANT STOMA. SEVERE DEGENERATIVE CHANGES AND DEXTROSCOLIOSIS OF THE SPINE. ANASARCA. Abdominal US: IMPRESSION: 1. Sludge and possible small stones in the gallbladder. No gallbladder wall thickening or pericholecystic fluid. 2. Ascites. 3. Small right pleural effusion. Chest x-ray - 11/10/19 - Procedure: XRAY Chest 1v Procedure: XRAY Chest 1v Reason for study: Reason For Exam: SOB Comparison films: 11/07/2019. FINDINGS: Tracheostomy remains in place. Basilar infiltrates not significantly changed. Small effusions unchanged. Cardiac silhouette stable. The bony thorax appear unremarkable. IMPRESSION: NO SIGNIFICANT CHANGE COMPARED TO PREVIOUS EXAM Chest x-ray - 11/18/19 - Procedure: XRAY Chest 1v Procedure: XRAY Chest 1v Reason for study: Reason For Exam: SOB Comparison films: 11/15/2019. FINDINGS: Tracheostomy remains in place. Bilateral congestion and edema are unchanged. Cardiac silhouette is obscured. Effusions unchanged. The bony thorax appear unremarkable. IMPRESSION: NO SIGNIFICANT CHANGE COMPARED TO PREVIOUS EXAM. Chest x-ray 11/23/19 - Procedure: XRAY Chest 1v Indication: Dyspnea Technique: One view of the chest Comparison: 11/18/2019 Findings: Slightly better inspiration currently. Left pleural effusion and generalized interstitial airspace hazy infiltrates and interstitial congestion persist, probably unchanged allowing for differences in degree of inspiration. Tracheostomy again demonstrated Impression: Unchanged, over 5 days, findings as above. Microbiology Date/Time Source Procedure Growth Status 11/14/19 14:05 Blood Blood Culture - Final NO GROWTH AFTER 5 DAYS Complete 11/06/19 10:04 Sputum Induced Gram Stain - Final Complete 11/06/19 10:04 Sputum Culture - Final Providencia Stuartii K.pneumoniae Carbapenem Resist Pseudomonas Aeruginosa Complete 11/13/19 04:00 Indwelling Cath Urine Culture - Final Aundrea Tropicalis Complete 11/16/19 16:00 Arm Right Catheter Tip Culture - Final K.pneumoniae Carbapenem Resist Complete Laboratory Tests Test 11/22/19 22:45 11/23/19 03:45 11/23/19 06:00 11/23/19 12:05 POC Whole Blood Glucose Pending Pending Pending White Blood Count 127.0 K/UL (4.8-10.8) *H Red Blood Count 2.71 M/UL (4.20-5.40) L Hemoglobin 7.8 G/DL (12.0-16.0) L Hematocrit 24.7 % (37.0-47.0) L Mean Corpuscular Volume 91 FL (80-99) Mean Corpuscular Hemoglobin 28.7 PG (27.0-31.0) Mean Corpuscular Hemoglobin Concent 31.5 G/DL (32.0-36.0) L Red Cell Distribution Width 15.4 % (11.6-14.8) H Platelet Count 22 K/UL (150-450) L Mean Platelet Volume 9.7 FL (6.5-10.1) Neutrophils (%) (Auto) % (45.0-75.0) Lymphocytes (%) (Auto) % (20.0-45.0) Monocytes (%) (Auto) % (1.0-10.0) Eosinophils (%) (Auto) % (0.0-3.0) Basophils (%) (Auto) % (0.0-2.0) Differential Total Cells Counted 100 Neutrophils % (Manual) 2 % (45-75) L Lymphocytes % (Manual) 9 % (20-45) L Monocytes % (Manual) 16 % (1-10) H Eosinophils % (Manual) 0 % (0-3) Basophils % (Manual) 0 % (0-2) Blast Cells % 73 % (0-0) *H Band Neutrophils 0 % (0-8) Platelet Estimate Decreased L Platelet Morphology Normal Polychromasia 1+ Hypochromasia 3+ Anisocytosis 1+ Sodium Level 142 MMOL/L (136-145) Potassium Level 4.2 MMOL/L (3.5-5.1) Chloride Level 106 MMOL/L (98-107) Carbon Dioxide Level 29 MMOL/L (21-32) Anion Gap 8 mmol/L (5-15) Blood Urea Nitrogen 41 mg/dL (7-18) H Creatinine 1.1 MG/DL (0.55-1.30) Estimat Glomerular Filtration Rate 48.5 mL/min (>60) Glucose Level 116 MG/DL (74-106) H Calcium Level 7.4 MG/DL (8.5-10.1) L Total Bilirubin 0.6 MG/DL (0.2-1.0) Aspartate Amino Transf (AST/SGOT) 55 U/L (15-37) H Alanine Aminotransferase (ALT/SGPT) < 6 U/L (12-78) L Alkaline Phosphatase 179 U/L (46-116) H Total Creatine Kinase 17 U/L (26-308) L Total Protein 5.1 G/DL (6.4-8.2) L Albumin 1.4 G/DL (3.4-5.0) L Globulin 3.7 g/dL Albumin/Globulin Ratio 0.4 (1.0-2.7) L Current Medications Medications (Trade) Dose Ordered Sig/Inna Route PRN Reason Start Time Stop Time Status Last Admin Dose Admin Acetaminophen (Tylenol) 650 mg Q4H PRN GT fever 100.4, mild pain 11/10/19 10:00 12/01/19 23:14 11/23/19 00:13 Acetaminophen (Tylenol) 650 mg Q4H PRN RECTAL Temp >100.5 11/08/19 21:30 12/08/19 21:29 11/18/19 21:43 Albuterol/ Ipratropium (Albuterol/ Ipratropium) 3 ml Q4H PRN HHN Shortness of Breath 11/20/19 08:02 11/25/19 08:01 Ascorbic Acid (Vitamin C) 500 mg DAILY GT 11/02/19 09:00 12/02/19 08:59 11/23/19 11:05 Carbidopa/Levodopa (Sinemet 25/100) 2 tab QID GT 11/02/19 09:00 12/02/19 08:59 11/23/19 14:19 Chlorhexidine Gluconate (Josefa-Hex 2%) 1 applic DAILY@2000 TOPIC 11/15/19 20:00 02/13/20 19:59 11/22/19 19:29 Daptomycin 500 mg/ Sodium Chloride 50 ml @ 100 mls/hr Q24H IV 11/20/19 16:00 11/27/19 15:59 11/22/19 16:29 Dextrose (Dextrose 50%) 25 ml Q30M PRN IV Hypoglycemia 11/09/19 20:00 02/07/20 19:59 Dextrose (Dextrose 50%) 50 ml Q30M PRN IV Hypoglycemia 11/09/19 20:00 02/07/20 19:59 Docusate Sodium (Colace) 100 mg DAILY GT 11/02/19 09:00 12/02/19 08:59 11/23/19 11:04 Entacapone (Comtan) 400 mg THREE TIMES A DAY ORAL 11/10/19 13:00 12/02/19 17:59 11/23/19 14:15 Hydroxyurea (Hydrea) 500 mg DAILY ORAL 11/22/19 09:00 11/27/19 08:59 11/23/19 11:04 Insulin Aspart (NovoLOG) Q6HR SUBQ 11/06/19 12:00 02/04/20 11:59 11/23/19 12:14 Metoclopramide HCl (Reglan) 5 mg Q6H PRN IVP nausea or vomiting 11/01/19 23:15 12/01/19 23:14 11/02/19 12:51 Multivitamins (Multivitamins W/ Minerals 15ml Liquid) 15 ml DAILY GT 11/02/19 09:00 12/02/19 08:59 11/23/19 09:00 Ondansetron HCl (Zofran) 4 mg Q4H PRN IVP Nausea & Vomiting 11/01/19 23:15 12/01/19 23:14 Pantoprazole (Protonix) 40 mg DAILY IVP 11/05/19 09:00 12/05/19 08:59 11/23/19 11:03 Polyethylene Glycol (Miralax) 17 gm DAILY PRN GT Constipation 11/02/19 08:30 12/02/19 07:59 Polymyxin B Sulfate 082470 units/Dextrose 550 ml @ 550 mls/hr EVERY 12 HOURS IV 11/21/19 21:00 11/28/19 20:59 11/23/19 11:41 Quetiapine Fumarate (SEROqueL) 50 mg QHS GT 11/02/19 21:00 12/17/19 20:59 11/22/19 20:00 Sennosides (Senokot) 8.6 mg QHS GT 11/02/19 21:00 12/02/19 20:59 11/22/19 20:00 Tigecycline 50 mg/ Sodium Chloride 110 ml @ 220 mls/hr Q12H IVPB 11/20/19 00:00 11/27/19 00:00 11/23/19 12:18 Zinc Oxide (Desitin) 1 applic FOUR TIMES A DAY TOPIC 11/04/19 14:00 12/04/19 13:59 11/23/19 14:18 González Yadav MD Nov 23, 2019 17:27
--- NOTE | 2019-11-23 19:10 | NUR ---
NURSE NOTES: Received report from Tim Anglin. Pt asleep, afebrile and has no respiratory distress noted. On [facility] vent S6, AC 20, FiO2 45%, peep 5 working well. With left upper double lumen picc line intact, patent and asymptomatic. On Glcuerna 1.2 at 60cc/hr Goal and currently running on 30cc/hr as tolerated, via GT intact, infusing well. With Bailey catheter to urine bag patent and draining well. HOB elevated, Bed rails are up and wheels are locked, needs were attended. Continue plan of care
--- NOTE | 2019-11-23 19:10 | NUR ---
HAND-OFF: Report given to .DANIELLE DUKE.
--- NOTE | 2019-11-23 19:28 | NUR ---
RESPIRATORY NOTE: Received pt on AC 20, 400VT, 40%, PEEP +5. Pt is trach-dependent w/ a cuffed, Shiley 6 tube. Pt obtunded/flat effect. B/S love. rhonchi, sxn moderate amounts of thick/thin/frothy, pale-yellow secretions. Vent plugged into red outlet, ambubag at bedside. Pt in no apparent distress at this time. Will continue plan of care.
[2019-11-23 20:00] VITALS: BP 130/62
[2019-11-23] MEDS: Sennosides 8.6mg tab GT SCH (20:25)
[2019-11-23] MEDS: Dyna-Hex 2% Top Sol 2oz TOPIC SCH (20:31)
[2019-11-23] MEDS: Bactrim-DS 1 tab ORAL SCH (20:31)
[2019-11-24] VITALS: BP 105/56
--- NOTE | 2019-11-24 00:30 | NUR ---
NURSE NOTES: Platelet transfusion started. VS are stable. Patient asleep, no discomforts or ASE noted to patient. Continue to monitor for 15 mins at bedside.
--- NOTE | 2019-11-24 00:45 | NUR ---
NURSE NOTES: After 15 mins of monitoring, VS remain stable. Patient tolerating the blood transfusion without any adverse side effects noted to patient. Pt still asleep. Continue to monitor the patient.
--- NOTE | 2019-11-24 02:30 | NUR ---
NURSE NOTES: blood transfusion done. No ASE noted to patient. Pt was cleaned and gown was change. Partial bed bath given. oral care done as needed. Pt eyes were opened and tracking the nurses around her. PT tolerated the activity.Continue to monitor the patient
[2019-11-24 04:00] VITALS: BP 105/56
[2019-11-24 05:53] LABS: HEMATOCRIT 21.7 % (37.0-47.0); MEAN CORPUSCULAR VOLUME 91 FL (80-99); PLATELET COUNT 52 K/UL (150-450); RED BLOOD COUNT 2.37 M/UL (4.20-5.40); RED CELL DISTRIBUTION WIDTH 15.8 % (11.6-14.8)
[2019-11-24] MEDS: NovoLOG Insulin Flexpen SUBQ SCH ×4 (06:00→23:19)
--- NOTE | 2019-11-24 06:00 | NUR ---
NURSE NOTES: Relayed to Dr Prince regarding patient's blood pressure of 93/54 to 104/46 over lower extremities. Positioned the patient to trendelenburg to increase venous return to heart. Patient tolerating the position without discomforts. Pt is arousable and no other discomforts noted. Awaiting for doctor's response/ orders. Continue to monitor the patient.
[2019-11-24 06:13] LABS: ALANINE AMINOTRANSFERASE < 6 U/L (12-78); ALBUMIN 1.4 G/DL (3.4-5.0); ALBUMIN/GLOBULIN RATIO 0.4 (1.0-2.7); ALKALINE PHOSPHATASE 292 U/L (46-116); ANION GAP 7 mmol/L (5-15); ASPARTATE AMINO TRANSFERASE 73 U/L (15-37); BILIRUBIN,TOTAL 1.7 MG/DL (0.2-1.0); BLOOD UREA NITROGEN 43 mg/dL (7-18); CALCIUM 7.5 MG/DL (8.5-10.1); CARBON DIOXIDE 29 MMOL/L (21-32); CHLORIDE 103 MMOL/L (98-107); CREATININE 1.3 MG/DL (0.55-1.30); POTASSIUM 4.3 MMOL/L (3.5-5.1); SODIUM 138 MMOL/L (136-145)
[2019-11-24 06:17] LABS: BILIRUBIN,DIRECT 1.3 MG/DL (0.0-0.3)
[2019-11-24 06:41] LABS: WHITE BLOOD COUNT 184.4 K/UL (4.8-10.8)
--- NOTE | 2019-11-24 07:25 | NUR ---
HAND-OFF: Report given to SRIKANTH Coelho. Endorsed to ff up with Dr Agrawal regarding hgb and Hct orders and Dr Prince regarding BP order. pt stable and asleep
--- NOTE | 2019-11-24 07:30 | NUR ---
NURSE NOTES: Received report from SRIKANTH SANTOS. The patient is resting on the bed without acute distress or shortness of breath. The patient is trached and is on ventilator and communication made by facial expression and body movement. The patient is trach'ed and on following ventilator setting as follows and oxygen saturation is 100%: Shiley 6, AC 20, TV 400, FiO2 45%, and PEEP 5. The patient has newly inserted G tube that does not leak but on hold now since midnight for KUB. Will resume feeding as soon as the patient is done with KUB. GT order is Glucerna 1.2 with goal of 60mL/hr and was on 30mL/hr, and will be increased as tolerated. The patient Bailey intact and patent and draining by gravity. The patient has MATTIE double lumen PICC line that is intact and patent and kept in TKO. Skin issue noted and dressing intact. Code status of DNR and DNI noted. The patient's bed in the lowest position, call light in reach, and fall and aspiration precaution reinforced. Will follow up the order and lab. Will closely monitor the patient. Will continue plan of care.
--- NOTE | 2019-11-24 07:50 | NUR ---
NURSE NOTES: Notified Dr. Prince regarding abnormal lab result including WBC, Hgb, and plt. Dr. Prince ordered 1 unit transfusion to be done today. Will do transfusion as soon as blood gets ready. Will continue plan of care.
[2019-11-24 08:00] VITALS: BP 107/64
--- NOTE | 2019-11-24 08:30 | NUR ---
NURSE NOTES: Stable vital signs noted. Will closely monitor the patient. Will continue plan of care.
[2019-11-24] MEDS: Docusate 100mg/10ml Liq GT SCH (08:46)
[2019-11-24] MEDS: Multivitamins W/Minerals 15 ML UDC GT SCH (08:46)
--- NOTE | 2019-11-24 08:46 | Surgery Progress Note ---
Surgery Progress Note Subjective Symptoms: worse Additional Comments no acute events ill appearing labs reviewed Objective Last 24 Hour Vital Signs Date Time Temp Pulse Resp B/P (MAP) Pulse Ox O2 Delivery O2 Flow Rate FiO2 11/24/19 07:00 112 22 40 11/24/19 04:00 40 11/24/19 04:00 97.7 114 20 105/56 (72) 99 11/24/19 04:00 Mechanical Ventilator 11/24/19 03:48 117 11/24/19 03:20 117 21 40 11/24/19 00:00 Mechanical Ventilator 11/24/19 00:00 99.1 114 20 105/56 (72) 99 11/23/19 23:34 118 11/23/19 23:14 99.0 11/23/19 22:47 120 23 40 11/23/19 20:00 40 11/23/19 20:00 Mechanical Ventilator 11/23/19 20:00 98.4 80 20 130/62 (84) 99 11/23/19 19:25 95 23 40 11/23/19 19:07 121 11/23/19 18:00 Mechanical Ventilator 11/23/19 16:00 Mechanical Ventilator 11/23/19 16:00 111 11/23/19 16:00 40 11/23/19 16:00 98.2 111 20 136/69 (91) 99 11/23/19 15:00 108 21 40 11/23/19 12:00 97.7 109 18 149/77 (101) 100 11/23/19 12:00 40 11/23/19 11:32 113 11/23/19 11:00 109 22 40 11/23/19 09:00 118 I&O Intake and Output 11/23/19 11/24/19 19:00 07:00 Intake Total 1049 ml 370 ml Output Total 700 ml 300 ml Balance 349 ml 70 ml Intake Free Water 150 ml IV Total 539 ml 220 ml Tube Feeding 360 ml 150 ml Output Urine Total 700 ml 300 ml # Bowel Movements 1 Dressing: other Wound: other Drains: other Cardiovascular: RSR Respiratory: decreased breath sounds Abdomen: soft, other, non-distended Extremities: edema, no cyanosis Laboratory Tests Test 11/23/19 12:05 11/23/19 23:14 11/24/19 05:23 11/24/19 05:41 POC Whole Blood Glucose Pending 99 MG/DL (74-106) 75 MG/DL (74-106) White Blood Count 184.4 K/UL (4.8-10.8) *H Red Blood Count 2.37 M/UL (4.20-5.40) L Hemoglobin 7.0 G/DL (12.0-16.0) L Hematocrit 21.7 % (37.0-47.0) L Mean Corpuscular Volume 91 FL (80-99) Mean Corpuscular Hemoglobin 29.4 PG (27.0-31.0) Mean Corpuscular Hemoglobin Concent 32.2 G/DL (32.0-36.0) Red Cell Distribution Width 15.8 % (11.6-14.8) H Platelet Count 52 K/UL (150-450) #L Mean Platelet Volume 8.9 FL (6.5-10.1) Neutrophils (%) (Auto) % (45.0-75.0) Lymphocytes (%) (Auto) % (20.0-45.0) Monocytes (%) (Auto) % (1.0-10.0) Eosinophils (%) (Auto) % (0.0-3.0) Basophils (%) (Auto) % (0.0-2.0) Neutrophils % (Manual) Pending Lymphocytes % (Manual) Pending Platelet Estimate Pending Platelet Morphology Pending Sodium Level 138 MMOL/L (136-145) Potassium Level 4.3 MMOL/L (3.5-5.1) Chloride Level 103 MMOL/L (98-107) Carbon Dioxide Level 29 MMOL/L (21-32) Anion Gap 7 mmol/L (5-15) Blood Urea Nitrogen 43 mg/dL (7-18) H Creatinine 1.3 MG/DL (0.55-1.30) Estimat Glomerular Filtration Rate 39.9 mL/min (>60) Glucose Level 94 MG/DL (74-106) Calcium Level 7.5 MG/DL (8.5-10.1) L Total Bilirubin 1.7 MG/DL (0.2-1.0) H Direct Bilirubin 1.3 MG/DL (0.0-0.3) H Aspartate Amino Transf (AST/SGOT) 73 U/L (15-37) H Alanine Aminotransferase (ALT/SGPT) < 6 U/L (12-78) L Alkaline Phosphatase 292 U/L (46-116) H Total Protein 5.0 G/DL (6.4-8.2) L Albumin 1.4 G/DL (3.4-5.0) L Globulin 3.6 g/dL Albumin/Globulin Ratio 0.4 (1.0-2.7) L Plan Problems: (1) Decubitus skin ulcer Assessment & Plan: Pt presented on admission with multiple Pressure Injuries, and contractures. Large Soft Mass noted to lateral R chest ,just inferior to Breast.Soft mass that uis violaceous and denuded. Unstageable Pressure injury R thoracic. Wound presents as partially opened DTPI( L)6cm x (W)8.5cm. 95% Soft eschar flap,5% dee. Marginal erythema along borders In addition scattered linear and purple area periwound. Full thickness stage 4 Sacral Pressure Injury(L)9.3cm x (W)8.7cm. Base of wound is 95% necrotic,but bone is palpable.Mild odor noted. No exudate noted. Non-blanching erythema periwound. Unstageable Pressure Injury R trochanter(L)3.5cm x (W)4.2cm. Base of wound is 90 % soft eschar, 10% pink epithelial. Edges adherent to base of wound .No erythema induration or fluctuance periwound. Unstageable Pressure injury R Ischium(L)3.5cm x (W)2.5cm. Dry eschar at base of wound, edges are adherent with surrounding pink epithelial. No erythema or induration periwound. DTPI L trochanter(L)4cm x (W)1cm. Stable dry eschar L Hallux(L)1.6cm x (W)2cm.NO erythema fluctuance or induration periwound. L 1st metatarsal TMA noted. Stable dry eschar distal/lateral L foot (L)1.5cm x (W)3cm. No erythema, induration or fluctuance periwound. DTPI noted to plantar L foot.(L)0.9cm x (W)0.9cm. Base of wound is fluctuant, purple with maroon borders. Unstageable Pressure injury L lateral Malleolus. Stable dry eschar noted.No erythema or induration periwound. L heel is boggy with non-blanching erythema. Unstageable Pressure injury R Hallux and plantar aspect(L)3.5cm x (W)3.4cm. Soft eschar at base of wound with marginal erythema along borders. R heel is boggy with Non-Blanching erythema. Unstageable Presure injury distal/Lateral R foot . Stable dry eschar noted . No erythema of fluctuance periwound. Tx.Plan: Cleanse Sacral Wound with Saline. Loosely pack with Therahoney impregnated Kerlix.Applpy Moisture Barrier Paste periwound. Cover with Optifoam drsg. Change Daily and prn. Cleanse Soft Mass R chest with Saline. Cover with Optifoam drsg. Change Daily and prn. Cleanse wounds R trochanter, R Ischium with Saline. Apply Moisture Barrier Paste.Cover with Optifoam drsg. Change every 3 days and prn. Apply Moisture Barrier to L trochanter. Cvoer with Optifoam drsg. Change every 3 days and prn. Apply Betadine to wounds R and L foot. Cover each wound with Optifoam drsg. Changee very 3 days and prn. Apply Cavilon Skin Barrier to both heels. Cover each heel with Optifoam drsg. Change every 7 days and prn. APM/ANA Mattress overlay. turn q2h nutritional optimization (2) Malnutrition Assessment & Plan: DAILY ESTIMATED NEEDS: Needs based on Critical care, wounds, 64kg 22-28 kcals/kg 1950-0071 total kcals 1.25-2 g protein/kg 80-128 g total protein 25-30 mL/kg 8843-8000 total fluid mLs NUTRITION DIAGNOSIS: Swallowing difficulty r/t respiratory status as evidenced by pt is trach and peg dep, currently NPO, on TPN, . CURRENT TF:NPO, on TPN PARENTERAL NUTRITION RECOMMENDATIONS: D/AA Rate: 70 IL Rate: 8 Total Rate: 78 Volume: 1872 % Dextrose: 18 % AA: 5.5 Energy (kcals/kg): 1781 Protein (g/kg protein): 92 Nonprotein KCALS: 1412 GIR (mg CHO/kg/min): 3.3 % Fat KCALS: 22 NCP: N Ratio: 96:1 TPN Comment: - Maintain current TPN: -> D18%, AA 5.5% @70ml/hr w/ 20%IL @8ml/hr - all 3:1 - TF at goal meets 100% est needs, provides 28 kcal/kg and 1.4g/kg pro. - GIR<5 - IL <30% ADDITIONAL RECOMMENDATIONS: 1) Per SNF: 65 inches (5'5"); 141 lbs (64.1kg) 2) Wound care: add MEIR BID via GT w/ TF order; hold w/ TPN 3) Monitor lytes, BG, and LFT's on TPN - check updated phos and mag - Watch LFT's, AST trending up, rec updated level (3) Anemia Assessment & Plan: transfused trend labs no active bleeding stool study GI eval (4) UTI (urinary tract infection) (5) Tracheostomy dependence Assessment & Plan: Findings: The left hemidiaphragm is elevated. Atelectatic changes are present in the left lung base. There is minimal right basilar atelectasis. No definite infiltrates. There is a tracheostomy. Impression: Elevated left hemidiaphragm with considerable left basilar atelectasis. Less extensive right basilar atelectasis. Inspiration is suboptimal. Interim development of opacity of the left mid and lower lung. The left hemidiaphragm is obscured. Right lung is probably clear , although there is crowding of bronchovascular lung volumes. Tracheostomy remains. Impression: Since 11/01/2019, interim development of left mid and lower lung infiltrates versus edema and possibly pleural fluid Juan Houser Nov 24, 2019 08:46
[2019-11-24] MEDS: Entacapone 200mg tab ORAL SCH ×3 (08:47→17:52)
[2019-11-24] MEDS: Bactrim-DS 1 tab ORAL SCH ×2 (08:47→20:47)
[2019-11-24] MEDS: Levodopa/Carbidopa 25/100 tab GT SCH ×4 (08:47→20:47)
[2019-11-24] MEDS: Pantoprazole Inj IVP SCH (08:47)
[2019-11-24] MEDS: Ascorbic Acid 500mg tab GT SCH (08:47)
[2019-11-24] MEDS: Midodrine 10mg tab ORAL SCH ×3 (08:48→17:52)
[2019-11-24] MEDS: Desitin Rash Paste TOPIC SCH ×4 (08:48→20:48)
[2019-11-24] MEDS: Hydroxyurea 500mg cap ORAL SCH ×2 (08:48→20:51)
[2019-11-24] MEDS: Fluconazole 100mg tab ORAL SCH (08:48)
--- NOTE | 2019-11-24 09:30 | NUR ---
NURSE NOTES: Morning medications administered as ordered. Will closely monitor the patient. Will continue plan of care.
--- NOTE | 2019-11-24 10:40 | General Progress Note ---
Assessment/Plan Status: stable, unchanged Assessment/Plan: 1. AML. 2. Respiratory failure with vent. 3. Dysphagia with G-tube. 4. Ovarian mass. 5. Advanced Parkinson disease. 6. Anemia requiring blood transfusion in the past. 7. Dementia. 8. Pancytopenia. s/p EGD and peg placement G TF pending blood transfusion Elevated LFTS possibly due to recent TPN, will fu poor prognosis Subjective ROS Limited/Unobtainable: No Allergies: Coded Allergies: PENICILLINS (Verified Allergy, Unknown, 11/01/19) VANCOMYCIN (Verified Allergy, Unknown, 11/01/19) Uncoded Allergies: PENICI (Allergy, Unknown, 11/01/19) Objective Last 24 Hour Vital Signs Date Time Temp Pulse Resp B/P (MAP) Pulse Ox O2 Delivery O2 Flow Rate FiO2 11/24/19 07:35 111 11/24/19 07:00 112 22 40 11/24/19 04:00 40 11/24/19 04:00 97.7 114 20 105/56 (72) 99 11/24/19 04:00 Mechanical Ventilator 11/24/19 03:48 117 11/24/19 03:20 117 21 40 11/24/19 00:00 Mechanical Ventilator 11/24/19 00:00 99.1 114 20 105/56 (72) 99 11/23/19 23:34 118 11/23/19 23:14 99.0 11/23/19 22:47 120 23 40 11/23/19 20:00 40 11/23/19 20:00 Mechanical Ventilator 11/23/19 20:00 98.4 80 20 130/62 (84) 99 11/23/19 19:25 95 23 40 11/23/19 19:07 121 11/23/19 18:00 Mechanical Ventilator 11/23/19 16:00 Mechanical Ventilator 11/23/19 16:00 111 11/23/19 16:00 40 11/23/19 16:00 98.2 111 20 136/69 (91) 99 11/23/19 15:00 108 21 40 11/23/19 12:00 97.7 109 18 149/77 (101) 100 11/23/19 12:00 40 11/23/19 11:32 113 11/23/19 11:00 109 22 40 Intake and Output 11/23/19 11/24/19 19:00 07:00 Intake Total 1049 ml 370 ml Output Total 700 ml 300 ml Balance 349 ml 70 ml Intake Free Water 150 ml IV Total 539 ml 220 ml Tube Feeding 360 ml 150 ml Output Urine Total 700 ml 300 ml # Bowel Movements 1 Laboratory Tests 11/23/19 12:05: POC Whole Blood Glucose [Pending] 11/23/19 23:14: POC Whole Blood Glucose 99 11/24/19 05:23: POC Whole Blood Glucose 75 11/24/19 05:41: White Blood Count 184.4*H, Red Blood Count 2.37L, Hemoglobin 7.0L, Hematocrit 21.7L, Mean Corpuscular Volume 91, Mean Corpuscular Hemoglobin 29.4, Mean Corpuscular Hemoglobin Concent 32.2, Red Cell Distribution Width 15.8H, Platelet Count 52#L, Mean Platelet Volume 8.9, Neutrophils (%) (Auto) , Lymphocytes (%) (Auto) , Monocytes (%) (Auto) , Eosinophils (%) (Auto) , Basophils (%) (Auto) , Differential Total Cells Counted 100, Neutrophils % ( Manual) 6L, Lymphocytes % (Manual) 4L, Monocytes % (Manual) 4, Eosinophils % ( Manual) 0, Basophils % (Manual) 0, Blast Cells % 84*H, Band Neutrophils 2, Nucleated Red Blood Cells 1, Smudge Cells 1+, Platelet Estimate DecreasedL, Platelet Morphology Normal, Polychromasia 1+, Hypochromasia 1+, Anisocytosis 1+ , Sodium Level 138, Potassium Level 4.3, Chloride Level 103, Carbon Dioxide Level 29, Anion Gap 7, Blood Urea Nitrogen 43H, Creatinine 1.3, Estimat Glomerular Filtration Rate 39.9, Glucose Level 94, Calcium Level 7.5L, Total Bilirubin 1.7H, Direct Bilirubin 1.3H, Aspartate Amino Transf (AST/SGOT) 73H, Alanine Aminotransferase (ALT/SGPT) < 6L, Alkaline Phosphatase 292H, Total Protein 5.0L, Albumin 1.4L, Globulin 3.6, Albumin/Globulin Ratio 0.4L Height (Feet): 5 Height (Inches): 3.00 Weight (Pounds): 161 General Appearance: no apparent distress EENT: normal ENT inspection Neck: supple Cardiovascular: normal rate Respiratory/Chest: decreased breath sounds Abdomen: hypoactive bowel sounds Extremities: non-tender Vosoghi,Negro MD Nov 24, 2019 10:40
--- NOTE | 2019-11-24 10:50 | Pulmonology Progress Note ---
Martha Chandler [employer]METIC [employer]ER 11/24/19 1050: Subjective ROS Limited/Unobtainable: No Constitutional: Reports: other - + trach and vent Gastrointestinal/Abdominal: Denies: nausea, vomiting, diarrhea Musculoskeletal: Reports: other - NA Allergies: Coded Allergies: PENICILLINS (Verified Allergy, Unknown, 11/01/19) VANCOMYCIN (Verified Allergy, Unknown, 11/01/19) Uncoded Allergies: PENICI (Allergy, Unknown, 11/01/19) All Systems: reviewed and negative except above Subjective no signs of resp distress on current vent settings leukocytosis up to 184 no fevers for 24 hrs PICC exchanged 11/15 s/p EGD , removal of G tube 10/07 on TPN since 11/08 PLT 52 after 1 u platepharesis Hgb down to 7, G tube still with some leakage BP low earlier this am, now with some improvement Objective Last 24 Hour Vital Signs Date Time Temp Pulse Resp B/P (MAP) Pulse Ox O2 Delivery O2 Flow Rate FiO2 11/24/19 07:35 111 11/24/19 07:00 112 22 40 11/24/19 04:00 40 11/24/19 04:00 97.7 114 20 105/56 (72) 99 11/24/19 04:00 Mechanical Ventilator 11/24/19 03:48 117 11/24/19 03:20 117 21 40 11/24/19 00:00 Mechanical Ventilator 11/24/19 00:00 99.1 114 20 105/56 (72) 99 11/23/19 23:34 118 11/23/19 23:14 99.0 11/23/19 22:47 120 23 40 11/23/19 20:00 40 11/23/19 20:00 Mechanical Ventilator 11/23/19 20:00 98.4 80 20 130/62 (84) 99 11/23/19 19:25 95 23 40 11/23/19 19:07 121 11/23/19 18:00 Mechanical Ventilator 11/23/19 16:00 Mechanical Ventilator 11/23/19 16:00 111 11/23/19 16:00 40 11/23/19 16:00 98.2 111 20 136/69 (91) 99 11/23/19 15:00 108 21 40 11/23/19 12:00 97.7 109 18 149/77 (101) 100 11/23/19 12:00 40 11/23/19 11:32 113 11/23/19 11:00 109 22 40 Intake and Output 11/23/19 11/24/19 19:00 07:00 Intake Total 1049 ml 370 ml Output Total 700 ml 300 ml Balance 349 ml 70 ml Intake Free Water 150 ml IV Total 539 ml 220 ml Tube Feeding 360 ml 150 ml Output Urine Total 700 ml 300 ml # Bowel Movements 1 Objective General Appearance: no apparent distress, bedridden, vent dependent chronically ill appearing female Lines, tubes and drains: peripheral HEENT: normocephalic, atraumatic, anicteric, status post trach: Shiley #6, secretions small amount, thick consistency, white color , Vent AC 400-40%-20 PEEP 5 Respiratory/Chest: no respiratory distress, few scattered rhonchi Cardiovascular/Chest: regular rhythm, LUE PICC intact Abdomen: non tender, soft, distended, PEG with TF , still some yellowish leakage around G tube Extremities: no edema, spastic LE Skin Exam: warm/dry, multiple DTI POA ( sacral, ankle foot, elbow) Neurologic: abnormal gait : bedridden, not responsive Musculoskeletal: atrophy - BLE Laboratory Tests 11/23/19 12:05: POC Whole Blood Glucose [Pending] 11/23/19 23:14: POC Whole Blood Glucose 99 11/24/19 05:23: POC Whole Blood Glucose 75 11/24/19 05:41: White Blood Count 184.4*H, Red Blood Count 2.37L, Hemoglobin 7.0L, Hematocrit 21.7L, Mean Corpuscular Volume 91, Mean Corpuscular Hemoglobin 29.4, Mean Corpuscular Hemoglobin Concent 32.2, Red Cell Distribution Width 15.8H, Platelet Count 52#L, Mean Platelet Volume 8.9, Neutrophils (%) (Auto) , Lymphocytes (%) (Auto) , Monocytes (%) (Auto) , Eosinophils (%) (Auto) , Basophils (%) (Auto) , Differential Total Cells Counted 100, Neutrophils % ( Manual) 6L, Lymphocytes % (Manual) 4L, Monocytes % (Manual) 4, Eosinophils % ( Manual) 0, Basophils % (Manual) 0, Blast Cells % 84*H, Band Neutrophils 2, Nucleated Red Blood Cells 1, Smudge Cells 1+, Platelet Estimate DecreasedL, Platelet Morphology Normal, Polychromasia 1+, Hypochromasia 1+, Anisocytosis 1+ , Sodium Level 138, Potassium Level 4.3, Chloride Level 103, Carbon Dioxide Level 29, Anion Gap 7, Blood Urea Nitrogen 43H, Creatinine 1.3, Estimat Glomerular Filtration Rate 39.9, Glucose Level 94, Calcium Level 7.5L, Total Bilirubin 1.7H, Direct Bilirubin 1.3H, Aspartate Amino Transf (AST/SGOT) 73H, Alanine Aminotransferase (ALT/SGPT) < 6L, Alkaline Phosphatase 292H, Total Protein 5.0L, Albumin 1.4L, Globulin 3.6, Albumin/Globulin Ratio 0.4L Current Medications Medications (Trade) Dose Ordered Sig/Inna Route PRN Reason Start Time Stop Time Status Last Admin Dose Admin Acetaminophen (Tylenol) 650 mg Q4H PRN GT fever 100.4, mild pain 11/10/19 10:00 12/01/19 23:14 11/23/19 22:44 Acetaminophen (Tylenol) 650 mg Q4H PRN RECTAL Temp >100.5 11/08/19 21:30 12/08/19 21:29 11/18/19 21:43 Albuterol/ Ipratropium (Albuterol/ Ipratropium) 3 ml Q4H PRN HHN Shortness of Breath 11/20/19 08:02 11/25/19 08:01 Ascorbic Acid (Vitamin C) 500 mg DAILY GT 11/02/19 09:00 12/02/19 08:59 11/24/19 08:47 Carbidopa/Levodopa (Sinemet 25/100) 2 tab QID GT 11/02/19 09:00 12/02/19 08:59 11/24/19 08:47 Chlorhexidine Gluconate (Josefa-Hex 2%) 1 applic DAILY@1999 TOPIC 11/15/19 20:00 02/13/20 19:59 11/23/19 20:31 Dextrose (Dextrose 50%) 25 ml Q30M PRN IV Hypoglycemia 11/09/19 20:00 02/07/20 19:59 Dextrose (Dextrose 50%) 50 ml Q30M PRN IV Hypoglycemia 11/09/19 20:00 02/07/20 19:59 Docusate Sodium (Colace) 100 mg DAILY GT 11/02/19 09:00 12/02/19 08:59 11/24/19 08:46 Entacapone (Comtan) 400 mg THREE TIMES A DAY ORAL 11/10/19 13:00 12/02/19 17:59 11/24/19 08:47 Fluconazole (Diflucan) 200 mg DAILY ORAL 11/24/19 09:00 12/01/19 08:59 11/24/19 08:48 Hydroxyurea (Hydrea) 500 mg DAILY ORAL 11/22/19 09:00 11/27/19 08:59 11/24/19 08:48 Insulin Aspart (NovoLOG) Q6HR SUBQ 11/06/19 12:00 02/04/20 11:59 11/23/19 12:14 Metoclopramide HCl (Reglan) 5 mg Q6H PRN IVP nausea or vomiting 11/01/19 23:15 12/01/19 23:14 11/02/19 12:51 Midodrine (Pro-Amatine) 10 mg THREE TIMES A DAY ORAL 11/24/19 09:00 02/22/20 08:59 11/24/19 08:48 Multivitamins (Multivitamins W/ Minerals 15ml Liquid) 15 ml DAILY GT 11/02/19 09:00 12/02/19 08:59 11/24/19 08:46 Ondansetron HCl (Zofran) 4 mg Q4H PRN IVP Nausea & Vomiting 11/01/19 23:15 12/01/19 23:14 Pantoprazole (Protonix) 40 mg DAILY IVP 11/05/19 09:00 12/05/19 08:59 11/24/19 08:47 Polyethylene Glycol (Miralax) 17 gm DAILY PRN GT Constipation 11/02/19 08:30 12/02/19 07:59 Quetiapine Fumarate (SEROqueL) 50 mg QHS GT 11/02/19 21:00 12/17/19 20:59 11/23/19 20:27 Sennosides (Senokot) 8.6 mg QHS GT 11/02/19 21:00 12/02/19 20:59 11/23/19 20:25 Tigecycline 50 mg/ Sodium Chloride 110 ml @ 220 mls/hr Q12H IVPB 11/20/19 00:00 11/27/19 00:00 11/23/19 23:15 Trimethoprim/ Sulfamethoxazole (Bactrim-DS) 1 tab Q12HR ORAL 11/23/19 21:00 11/30/19 20:59 11/24/19 08:47 Zinc Oxide (Desitin) 1 applic FOUR TIMES A DAY TOPIC 11/04/19 14:00 12/04/19 13:59 11/24/19 08:48 Assessment/Plan Assessment/Plan ASSESSMENT Chronic respiratory failure ventilator dependent with tracheostomy status Sepsis Bacteremia PICC infection with Klebsiella CRE Persistent fevers Hypotension, possible early shock Pneumonia, possible aspiration UTI with Klebsiella 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), s/p 2 u PRBC Pancytopenia Leukocytosis Dysphagia, feeding by G-tube Advanced Parkinson's disease Severe protein calorie malnutrition Malfunctioning G tube ( inadvertently was removed), s/p EGD and removal of G tube, s/p EGD and new PEG 11/20 Multiple DTI , POA Ovarian mass consistent with neoplasm AML Suspected COVID-19 infection -ruled out Severe protein calorie malnutrition Functional quadriplegia E/lyte abnormalities PLAN OF CARE NAZARIO ( was for a short time in ICU, responded to IVC boluses and albumin boluses) ventilator support, trach care, pulm toilet ABG stable on current settings, keep as is and optimize as needed CXR 11/06 unchanged, SCX 11/05 Providencia , Klebsiella CRE, Pseudomonas CXR 11/09 no change: Tracheostomy remains in place. Basilar infiltrates not significantly changed. Small effusions unchanged CXR 11/12 -Persistent low lung volumes, may be related to shallow inspiration. Bilateral patchy interstitial and air space opacities, most prominent in the left lung base. Stable to mildly worsened compared to the prior exam and is concerning for pneumonia versus pulmonary edema. Possible small left pleural effusion. CXR 11/14 - Slight worsening of bilateral alveolar densities which could be worsening infiltrates and/or edema repeat CXR 11/17 no significant changes from before CXR 11/22 no changes for 5 days BCX 10/31 05/28 Staph haemolyticus, likely contaminant BCX 11/01 05/28 MRSA BCX 11/03 NGTD UCX Klebsiella CRE BCX 11/05 ACB MDR, Staph BCX 11/06 NGTD BCX 11/10 GNR UCX 11/10 + yeast BCX 11/13 NGTD abx as per ID recs leuk again with trend up , no fevers RUE PICC was dc with tip cx and LUE PICC inserted by IR 11/15 PICC tip CX + Klebsiella CRE -CT A/P 11/09 BILATERAL SMALL PLEURAL EFFUSIONS AND DEPENDENT INFILTRATES. HUGE SEPTATED CYSTIC MASS ARISING FROM THE PELVIS EXTENDING INTO THE ABDOMEN MOST LIKELY OF OVARIAN ORIGIN. SMALL AMOUNT OF FREE FLUID ADJACENT TO THE HEPATIC AND SPLENIC EDGE WELL IN THE PELVIS. LEFT RENAL STONE. POSSIBLE SLUDGE OR NONCALCIFIED STONES LAYERING IN THE GALLBLADDER. LEFT LOWER QUADRANT STOMA. SEVERE DEGENERATIVE CHANGES AND DEXTROSCOLIOSIS OF THE SPINE. ANASARCA. ECHO with pEF 55%, no discrete vegetation seen COVID 11/01 NGT, Venous Duplex BLE NGT, apply SCD, started on Midodrine this am, BP better monitor HH with goal to keep Hgb >7, trend PLT severe pancytopenia likely 2 to AML s/p now 2 unit PLT transfuse blood today for Hgb 7 leukocytosis 2 to sepsis and partially probably due to malignancy/AML and ovarian Ca replace lytes as needed, monitor volumes asp precautions GT was inadvertently removed s/p replacement 11/03 by GI started TF still leaking plan replacement with GJ tube but cancelled due to leukocytosis s/p EGD 11/07, old G tube removed, unable to place a new one due to a large site , currently on TPN strict aspir precautions s/p new PEG 11/20 TF as per GI and taper TPN if tolerates , fup with GI recs still some leakage around G tube protein supplement as per RD recs continue SNF meds as per primary supportive care bowel regimen wound care as per surgeon recs overall prognosis grave, given sepsis and multiple comorbidities, with superimposed AML and ovarian mass, DNR/DNI status family declined transfer to [place] , bed is apparently no more available case discussed and evaluated by supervising physician Eugene Dan MD 11/24/19 1224: Subjective Allergies: Coded Allergies: PENICILLINS (Verified Allergy, Unknown, 11/01/19) VANCOMYCIN (Verified Allergy, Unknown, 11/01/19) Uncoded Allergies: PENICI (Allergy, Unknown, 11/01/19) Assessment/Plan Assessment/Plan Patient seen and examined with [employer]. Agree with above A&P as it reflects our joint deliberations. Martha Chandler NP Nov 24, 2019 10:50 Eugene Dan MD Nov 24, 2019 12:24
--- NOTE | 2019-11-24 11:00 | NUR ---
NURSE NOTES: Started 1 unit pRBC transfusion as ordered. Will recheck in 15 minutes. Will closely monitor the patient. Will continue plan of care.
--- NOTE | 2019-11-24 11:15 | NUR ---
NURSE NOTES: No transfusion reaction noted. Will continue transfusion as ordered. Will closely monitor the patient. Will continue plan of care.
--- NOTE | 2019-11-24 11:24 | NUR ---
RADIOLOGY DEPT., ABDOMEN X-RAY DONE BY RAJENDRA LYNCH
[2019-11-24 12:00] VITALS: BP 106/59
--- NOTE | 2019-11-24 12:00 | NUR ---
NURSE NOTES: Stable vital signs noted. The patient is tolerating blood transfusion well. Will closely monitor the patient. Will continue plan of care.
[2019-11-24] MEDS: [UNRECOGNIZED DRUG - OTHER] IVPB SCH ×4 (12:20→23:31)
[2019-11-24] MEDS: Acetaminophen 650mg/20.3ml GT PRN (12:22)
--- NOTE | 2019-11-24 14:00 | NUR ---
NURSE NOTES: Notified Dr. Membreno regarding positive blood culture result. No new order yet. Will continue plan of care.
--- NOTE | 2019-11-24 14:00 | NUR ---
NURSE NOTES: Completed 1 unit pRBC in a safe manner. Will closely monitor the patient. Will continue plan of care.
--- NOTE | 2019-11-24 14:30 | NUR ---
NURSE NOTES: Reported positive blood culture to Dr. Membreno again. Dr. Membreno ordered Polymyxin B 500,000 unit IVPB Q12hrs. Carried out the order. Will continue plan of care.
--- NOTE | 2019-11-24 15:01 | Diagnostic Imaging Report ---
Indication: Abdominal pain Technique: Supine view of the abdomen Comparison: 11/15/2011 Findings: Body habitus limits evaluation. There is a gastrostomy tube in place. The stomach appears less distended with gas. There is considerable stool in the right colon. The bowel gas pattern is otherwise unremarkable. Again demonstrated is lumbar scoliotic deformity. Impression: Considerable right colonic stool, correlate with any clinical history of constipation No definite acute process. Findings as noted
[2019-11-24 16:00] VITALS: BP 109/52
--- NOTE | 2019-11-24 16:00 | NUR ---
NURSE NOTES: Bed bath given to the patient. Tolerated well. Tolerating well for vent setting. Will continue plan of care.
--- NOTE | 2019-11-24 18:00 | NUR ---
NURSE NOTES: The patient is resting comfortably without acute distress or shortness of breath. Tolerating vent setting well. Tolerating GT feeding with rate of 20mL/hr now. BS of 85 noted. No coverage. Will closely monitor the patient. Will continue plan of care.
--- NOTE | 2019-11-24 19:00 | Internal Med Progress Note ---
Subjective Date of Service: Nov 24, 2019 Physician Name Fredrick Prince Attending Physician Fredrick Prince MD Current Medications Medications (Trade) Dose Ordered Sig/Inna Route PRN Reason Start Time Stop Time Status Last Admin Dose Admin Acetaminophen (Tylenol) 650 mg Q4H PRN GT fever 100.4, mild pain 11/10/19 10:00 12/01/19 23:14 11/24/19 12:22 Acetaminophen (Tylenol) 650 mg Q4H PRN RECTAL Temp >100.5 11/08/19 21:30 12/08/19 21:29 11/18/19 21:43 Albuterol/ Ipratropium (Albuterol/ Ipratropium) 3 ml Q4H PRN HHN Shortness of Breath 11/20/19 08:02 11/25/19 08:01 Ascorbic Acid (Vitamin C) 500 mg DAILY GT 11/02/19 09:00 12/02/19 08:59 11/24/19 08:47 Carbidopa/Levodopa (Sinemet 25/100) 2 tab QID GT 11/02/19 09:00 12/02/19 08:59 11/24/19 17:52 Chlorhexidine Gluconate (Josefa-Hex 2%) 1 applic DAILY@1999 TOPIC 11/15/19 20:00 02/13/20 19:59 11/23/19 20:31 Dextrose (Dextrose 50%) 25 ml Q30M PRN IV Hypoglycemia 11/09/19 20:00 02/07/20 19:59 Dextrose (Dextrose 50%) 50 ml Q30M PRN IV Hypoglycemia 11/09/19 20:00 02/07/20 19:59 Docusate Sodium (Colace) 100 mg DAILY GT 11/02/19 09:00 12/02/19 08:59 11/24/19 08:46 Entacapone (Comtan) 400 mg THREE TIMES A DAY ORAL 11/10/19 13:00 12/02/19 17:59 11/24/19 17:52 Fluconazole (Diflucan) 200 mg DAILY ORAL 11/24/19 09:00 12/01/19 08:59 11/24/19 08:48 Hydroxyurea (Hydrea) 500 mg BID ORAL 11/24/19 20:00 11/29/19 19:59 UNV Insulin Aspart (NovoLOG) Q6HR SUBQ 11/06/19 12:00 02/04/20 11:59 11/23/19 12:14 Metoclopramide HCl (Reglan) 5 mg Q6H PRN IVP nausea or vomiting 11/01/19 23:15 12/01/19 23:14 11/02/19 12:51 Midodrine (Pro-Amatine) 10 mg THREE TIMES A DAY ORAL 11/24/19 09:00 02/22/20 08:59 11/24/19 17:52 Multivitamins (Multivitamins W/ Minerals 15ml Liquid) 15 ml DAILY GT 11/02/19 09:00 12/02/19 08:59 11/24/19 08:46 Ondansetron HCl (Zofran) 4 mg Q4H PRN IVP Nausea & Vomiting 11/01/19 23:15 12/01/19 23:14 Pantoprazole (Protonix) 40 mg DAILY IVP 11/05/19 09:00 12/05/19 08:59 11/24/19 08:47 Polyethylene Glycol (Miralax) 17 gm DAILY PRN GT Constipation 11/02/19 08:30 12/02/19 07:59 Polymyxin B Sulfate 189318 units/Dextrose 550 ml @ 550 mls/hr EVERY 12 HOURS IV 11/24/19 21:00 12/01/19 20:59 Quetiapine Fumarate (SEROqueL) 50 mg QHS GT 11/02/19 21:00 12/17/19 20:59 11/23/19 20:27 Sennosides (Senokot) 8.6 mg QHS GT 11/02/19 21:00 12/02/19 20:59 11/23/19 20:25 Tigecycline 50 mg/ Sodium Chloride 110 ml @ 220 mls/hr Q12H IVPB 11/20/19 00:00 11/27/19 00:00 11/24/19 12:20 Trimethoprim/ Sulfamethoxazole (Bactrim-DS) 1 tab Q12HR ORAL 11/23/19 21:00 11/30/19 20:59 11/24/19 08:47 Zinc Oxide (Desitin) 1 applic FOUR TIMES A DAY TOPIC 11/04/19 14:00 12/04/19 13:59 11/24/19 17:53 Allergies: Coded Allergies: PENICILLINS (Verified Allergy, Unknown, 11/01/19) VANCOMYCIN (Verified Allergy, Unknown, 11/01/19) Uncoded Allergies: PENICI (Allergy, Unknown, 11/01/19) ROS Limited/Unobtainable: Yes All Systems: reviewed and negative except above Subjective s/p EGD and PEG placed J was unsuccessful TF increased + blood cx PRBC given wbc 184k non verbal, chronic trach Objective Last Vital Signs Date Time Temp Pulse Resp B/P (MAP) Pulse Ox O2 Delivery O2 Flow Rate FiO2 11/24/19 18:50 113 24 40 11/24/19 16:00 Mechanical Ventilator 11/24/19 16:00 98.2 109/52 (71) 100 General Appearance: no apparent distress Neck: other - +trach Cardiovascular: normal rate, regular rhythm, systolic murmur Respiratory/Chest: decreased breath sounds, rhonchi - bilaterally Abdomen: normal bowel sounds, non tender, soft Genitourinary/Rectal: other - +dong Edema: other - +edema Neurologic: aphasia Skin: other - +various stages pressure ulcers Laboratory Tests Test 11/23/19 23:14 11/24/19 05:23 11/24/19 05:41 11/24/19 06:08 POC Whole Blood Glucose 99 MG/DL (74-106) 75 MG/DL (74-106) 99 MG/DL (74-106) White Blood Count 184.4 K/UL (4.8-10.8) *H Red Blood Count 2.37 M/UL (4.20-5.40) L Hemoglobin 7.0 G/DL (12.0-16.0) L Hematocrit 21.7 % (37.0-47.0) L Mean Corpuscular Volume 91 FL (80-99) Mean Corpuscular Hemoglobin 29.4 PG (27.0-31.0) Mean Corpuscular Hemoglobin Concent 32.2 G/DL (32.0-36.0) Red Cell Distribution Width 15.8 % (11.6-14.8) H Platelet Count 52 K/UL (150-450) #L Mean Platelet Volume 8.9 FL (6.5-10.1) Neutrophils (%) (Auto) % (45.0-75.0) Lymphocytes (%) (Auto) % (20.0-45.0) Monocytes (%) (Auto) % (1.0-10.0) Eosinophils (%) (Auto) % (0.0-3.0) Basophils (%) (Auto) % (0.0-2.0) Differential Total Cells Counted 100 Neutrophils % (Manual) 6 % (45-75) L Lymphocytes % (Manual) 4 % (20-45) L Monocytes % (Manual) 4 % (1-10) Eosinophils % (Manual) 0 % (0-3) Basophils % (Manual) 0 % (0-2) Blast Cells % 84 % (0-0) *H Band Neutrophils 2 % (0-8) Nucleated Red Blood Cells 1 /100 WBC Smudge Cells 1+ Platelet Estimate Decreased L Platelet Morphology Normal Polychromasia 1+ Hypochromasia 1+ Anisocytosis 1+ Sodium Level 138 MMOL/L (136-145) Potassium Level 4.3 MMOL/L (3.5-5.1) Chloride Level 103 MMOL/L (98-107) Carbon Dioxide Level 29 MMOL/L (21-32) Anion Gap 7 mmol/L (5-15) Blood Urea Nitrogen 43 mg/dL (7-18) H Creatinine 1.3 MG/DL (0.55-1.30) Estimat Glomerular Filtration Rate 39.9 mL/min (>60) Glucose Level 94 MG/DL (74-106) Calcium Level 7.5 MG/DL (8.5-10.1) L Total Bilirubin 1.7 MG/DL (0.2-1.0) H Direct Bilirubin 1.3 MG/DL (0.0-0.3) H Aspartate Amino Transf (AST/SGOT) 73 U/L (15-37) H Alanine Aminotransferase (ALT/SGPT) < 6 U/L (12-78) L Alkaline Phosphatase 292 U/L (46-116) H Total Protein 5.0 G/DL (6.4-8.2) L Albumin 1.4 G/DL (3.4-5.0) L Globulin 3.6 g/dL Albumin/Globulin Ratio 0.4 (1.0-2.7) L Test 11/24/19 12:16 11/24/19 17:48 POC Whole Blood Glucose Pending Pending Microbiology Date/Time Source Procedure Growth Status 11/23/19 19:40 Blood Blood Culture - Preliminary Resulted Intake and Output 11/23/19 11/24/19 19:00 07:00 Intake Total 1049 ml 370 ml Output Total 700 ml 300 ml Balance 349 ml 70 ml Intake Free Water 150 ml IV Total 539 ml 220 ml Tube Feeding 360 ml 150 ml Output Urine Total 700 ml 300 ml # Bowel Movements [address] J tube .PEG placed 11/20 hgb 7.0 Assessment/Plan Status: not improved, unchanged Assessment/Plan Impression: sepsis on admission septic shock line sepsis acinectobacter bacteremia fungal cystitis 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 hydroxyurea increase to [address] Amador due to leukocytosis from AML will transfuse one unit PRBC s/p platelet tx one unit 11/14 prbc tx one unit 11/14 ltach bobby transfer d/w family. /son NOT in agreement. appealed DC. CM f/u abx per ID worsening wbc due AML flare microfungin wound care f/u cx ID f/u electrolyte replete as needed enteral feeding ventilator pulm HHN dong pain control off aricept, allopurinol DNAR status Fredrick Prince MD Internal Medicine [phone] time spent today 40 minutes stamp time on this note may NOT be the actual encounter time. Fredrick Prince MD Nov 24, 2019 19:00
--- NOTE | 2019-11-24 19:10 | NUR ---
NURSE NOTES: Pt report received from cary DUKE. pt is obtunded neuro abdalla, however no acute change in mentation. pt is trach vented, sating at 99% O2, no acute resp distress noted. pt is on monitor and storage bin tender showing NSR, no acute cardiac distress. pt bed is low, locked, armed, call light within reach, bed rails up times 3. will follow plan of care.
--- NOTE | 2019-11-24 19:30 | NUR ---
HAND-OFF: Report given to SRIKANTH Randhawa. The patient is stable at this time. Endorsed plan of care.
[2019-11-24 20:00] VITALS: BP 131/75
[2019-11-24] MEDS: Dyna-Hex 2% Top Sol 2oz TOPIC SCH (20:46)
[2019-11-24] MEDS: Sennosides 8.6mg tab GT SCH (20:47)
[2019-11-24] MEDS: Polymyxin B Sulfate 500,000 UNITS in D5W 500ml 550 ML IV SCH (20:49)
[2019-11-25] VITALS (7 sets, daily range): BP systolic 87–195; BP diastolic 45–74
[2019-11-25 05:49] LABS: HEMATOCRIT 22.6 % (37.0-47.0); HEMOGLOBIN 7.1 G/DL (12.0-16.0); MEAN CORPUSCULAR VOLUME 94 FL (80-99); PLATELET COUNT 53 K/UL (150-450); RED CELL DISTRIBUTION WIDTH 15.9 % (11.6-14.8)
[2019-11-25] MEDS: NovoLOG Insulin Flexpen SUBQ SCH ×4 (05:52→23:00)
[2019-11-25 06:15] LABS: WHITE BLOOD COUNT 170.7 K/UL (4.8-10.8)
[2019-11-25 06:16] LABS: ALANINE AMINOTRANSFERASE 10 U/L (12-78); ALBUMIN 1.5 G/DL (3.4-5.0); ALBUMIN/GLOBULIN RATIO 0.4 (1.0-2.7); ALKALINE PHOSPHATASE 288 U/L (46-116); ANION GAP 9 mmol/L (5-15); ASPARTATE AMINO TRANSFERASE 80 U/L (15-37); BILIRUBIN,TOTAL 1.5 MG/DL (0.2-1.0); BLOOD UREA NITROGEN 42 mg/dL (7-18); CALCIUM 7.7 MG/DL (8.5-10.1); CARBON DIOXIDE 25 MMOL/L (21-32); CHLORIDE 102 MMOL/L (98-107); CREATININE 1.3 MG/DL (0.55-1.30); POTASSIUM 4.8 MMOL/L (3.5-5.1); SODIUM 136 MMOL/L (136-145)
--- NOTE | 2019-11-25 07:10 | NUR ---
HAND-OFF: Report given to Dana DUKE. pt remains stable.
--- NOTE | 2019-11-25 07:11 | NUR ---
NURSE NOTES: Received patient in bed. Vent dependent. On continuous GTF as tolerated. Bailey cath inplace. Bed in lowest position, bed alarm on. Contact isolation observed. Will continue plan of care.
--- NOTE | 2019-11-25 08:14 | General Progress Note ---
Assessment/Plan Status: not improved, unchanged Assessment/Plan: 1. AML. 2. Respiratory failure with vent. 3. Dysphagia with G-tube. 4. Ovarian mass. 5. Advanced Parkinson disease. 6. Anemia requiring blood transfusion in the past. 7. Dementia. 8. Pancytopenia. s/p EGD and peg placement G TF pending blood transfusion Elevated LFTS possibly due to recent TPN, will fu poor prognosis Subjective ROS Limited/Unobtainable: No Allergies: Coded Allergies: PENICILLINS (Verified Allergy, Unknown, 11/01/19) VANCOMYCIN (Verified Allergy, Unknown, 11/01/19) Uncoded Allergies: PENICI (Allergy, Unknown, 11/01/19) Objective Last 24 Hour Vital Signs Date Time Temp Pulse Resp B/P (MAP) Pulse Ox O2 Delivery O2 Flow Rate FiO2 11/25/19 08:00 Mechanical Ventilator 11/25/19 08:00 100.4 126 20 195/66 (109) 88 11/25/19 08:00 60 11/25/19 07:48 60 11/25/19 04:00 40 11/25/19 04:00 Mechanical Ventilator 11/25/19 04:00 131 11/25/19 04:00 99.7 141 20 107/71 (83) 99 11/25/19 02:44 130 29 40 11/25/19 00:00 40 11/25/19 00:00 98.0 130 20 108/54 (72) 100 11/25/19 00:00 Mechanical Ventilator 11/25/19 00:00 130 11/24/19 23:06 128 26 40 11/24/19 20:00 119 11/24/19 20:00 Mechanical Ventilator 11/24/19 20:00 40 11/24/19 20:00 98.2 120 20 131/75 (93) 100 11/24/19 18:50 113 24 40 11/24/19 16:00 Mechanical Ventilator 11/24/19 16:00 40 11/24/19 16:00 113 11/24/19 16:00 98.2 114 20 109/52 (71) 100 11/24/19 14:40 111 20 40 11/24/19 12:00 98.1 115 20 106/59 (75) 100 11/24/19 12:00 Mechanical Ventilator 11/24/19 12:00 114 11/24/19 12:00 40 11/24/19 11:10 114 20 40 Intake and Output 11/24/19 11/25/19 19:00 07:00 Intake Total 210 ml 880 ml Output Total 800 ml 700 ml Balance -590 ml 180 ml Intake Free Water 50 ml IV Total 660 ml Tube Feeding 160 ml 220 ml Output Urine Total 800 ml 700 ml Laboratory Tests 11/24/19 12:16: POC Whole Blood Glucose [Pending] 11/24/19 17:48: POC Whole Blood Glucose [Pending] 11/24/19 23:06: POC Whole Blood Glucose 135H 11/25/19 04:51: White Blood Count 170.7*H, Red Blood Count 2.40L, Hemoglobin 7.1L, Hematocrit 22.6L, Mean Corpuscular Volume 94, Mean Corpuscular Hemoglobin 29.7, Mean Corpuscular Hemoglobin Concent 31.6L, Red Cell Distribution Width 15.9H, Platelet Count 53L, Mean Platelet Volume 9.5, Neutrophils (%) (Auto) , Lymphocytes (%) (Auto) , Monocytes (%) (Auto) , Eosinophils (%) (Auto) , Basophils (%) (Auto) , Differential Total Cells Counted 100, Neutrophils % ( Manual) 6L, Lymphocytes % (Manual) 10L, Monocytes % (Manual) 17H, Eosinophils % (Manual) 0, Basophils % (Manual) 0, Blast Cells % 67*H, Band Neutrophils 0, Platelet Estimate DecreasedL, Platelet Morphology Normal, Hypochromasia 3+, Anisocytosis 1+, Sodium Level 136, Potassium Level 4.8, Chloride Level 102, Carbon Dioxide Level 25, Anion Gap 9, Blood Urea Nitrogen 42H, Creatinine 1.3, Estimat Glomerular Filtration Rate 39.9, Glucose Level 81, Calcium Level 7.7L, Total Bilirubin 1.5H, Direct Bilirubin 1.0H, Aspartate Amino Transf (AST/SGOT) 80H, Alanine Aminotransferase (ALT/SGPT) 10L, Alkaline Phosphatase 288H, Total Protein 5.1L, Albumin 1.5L, Globulin 3.6, Albumin/Globulin Ratio 0.4L 11/25/19 05:37: POC Whole Blood Glucose 80 Height (Feet): 5 Height (Inches): 3.00 Weight (Pounds): 161 General Appearance: lethargic EENT: normal ENT inspection Neck: supple Cardiovascular: normal rate Respiratory/Chest: decreased breath sounds Abdomen: normal bowel sounds, non tender, soft Extremities: non-tender Negro Reeves MD Nov 25, 2019 08:14
[2019-11-25] MEDS: Multivitamins W/Minerals 15 ML UDC GT SCH (09:17)
[2019-11-25] MEDS: Docusate 100mg/10ml Liq GT SCH (09:17)
[2019-11-25] MEDS: Ascorbic Acid 500mg tab GT SCH (09:17)
[2019-11-25] MEDS: Levodopa/Carbidopa 25/100 tab GT SCH ×4 (09:17→20:24)
[2019-11-25] MEDS: Midodrine 10mg tab ORAL SCH ×2 (09:18→13:21)
[2019-11-25] MEDS: Hydroxyurea 500mg cap ORAL SCH ×2 (09:18→17:17)
[2019-11-25] MEDS: Entacapone 200mg tab ORAL SCH ×3 (09:18→17:17)
[2019-11-25] MEDS: Fluconazole 100mg tab ORAL SCH (09:18)
[2019-11-25] MEDS: Bactrim-DS 1 tab ORAL SCH ×2 (09:18→20:19)
[2019-11-25] MEDS: Pantoprazole Inj IVP SCH (09:28)
[2019-11-25] MEDS: Polymyxin B Sulfate 500,000 UNITS in D5W 500ml 550 ML IV SCH ×2 (09:37→20:19)
[2019-11-25] MEDS ORDERED: NS 275ml ONE (09:55)
[2019-11-25] MEDS ORDERED: Tubing IV Secondary IV ONE (09:55)
--- NOTE | 2019-11-25 10:35 | NUR ---
NURSE NOTES: Martha Chandler NP in the unit. Informed regarding today's lab result. She said that she will see patient's chart.
--- NOTE | 2019-11-25 10:57 | Pulmonology Progress Note ---
Martha Chandler WASHER MACHINE 11/25/19 1057: Subjective ROS Limited/Unobtainable: No Constitutional: Reports: other - + trach and vent Gastrointestinal/Abdominal: Denies: nausea, vomiting, diarrhea Musculoskeletal: Reports: other - NA Allergies: Coded Allergies: PENICILLINS (Verified Allergy, Unknown, 11/01/19) VANCOMYCIN (Verified Allergy, Unknown, 11/01/19) Uncoded Allergies: PENICI (Allergy, Unknown, 11/01/19) All Systems: reviewed and negative except above Subjective desaturated earlier this am, FiO2 increased to 60% leukocytosis down to 170 febrile Hgb 7.1 despite blood transfusion 11/23, PLT 52 G tube still with some leakage remains hypotensive Objective Last 24 Hour Vital Signs Date Time Temp Pulse Resp B/P (MAP) Pulse Ox O2 Delivery O2 Flow Rate FiO2 11/25/19 09:20 87/74 (78) 11/25/19 08:00 Mechanical Ventilator 11/25/19 08:00 100.4 126 20 195/66 (109) 88 11/25/19 08:00 60 11/25/19 07:48 60 11/25/19 07:34 120 11/25/19 04:00 40 11/25/19 04:00 Mechanical Ventilator 11/25/19 04:00 131 11/25/19 04:00 99.7 141 20 107/71 (83) 99 11/25/19 02:44 130 29 40 11/25/19 00:00 40 11/25/19 00:00 98.0 130 20 108/54 (72) 100 11/25/19 00:00 Mechanical Ventilator 11/25/19 00:00 130 11/24/19 23:06 128 26 40 11/24/19 20:00 119 11/24/19 20:00 Mechanical Ventilator 11/24/19 20:00 40 11/24/19 20:00 98.2 120 20 131/75 (93) 100 11/24/19 18:50 113 24 40 11/24/19 16:00 Mechanical Ventilator 11/24/19 16:00 40 11/24/19 16:00 113 11/24/19 16:00 98.2 114 20 109/52 (71) 100 11/24/19 14:40 111 20 40 11/24/19 12:00 98.1 115 20 106/59 (75) 100 11/24/19 12:00 Mechanical Ventilator 11/24/19 12:00 114 11/24/19 12:00 40 11/24/19 11:10 114 20 40 Intake and Output 11/24/19 11/25/19 19:00 07:00 Intake Total 210 ml 880 ml Output Total 800 ml 700 ml Balance -590 ml 180 ml Intake Free Water 50 ml IV Total 660 ml Tube Feeding 160 ml 220 ml Output Urine Total 800 ml 700 ml Objective General Appearance: no apparent distress, bedridden, vent dependent chronically ill appearing female Lines, tubes and drains: peripheral HEENT: normocephalic, atraumatic, anicteric, status post trach: Shiley #6, secretions large amount, thick consistency, white color , Vent AC 400-60%- 20 PEEP 5 Respiratory/Chest: no respiratory distress, few scattered rhonchi Cardiovascular/Chest: regular rhythm, LUE PICC intact Abdomen: non tender, soft, distended, PEG with TF , still some yellowish leakage around G tube Extremities: no edema, spastic LE Skin Exam: warm/dry, multiple DTI POA ( sacral, ankle foot, elbow) Neurologic: abnormal gait : bedridden, not responsive Musculoskeletal: atrophy - BLE Microbiology Date/Time Source Procedure Growth Status 11/23/19 19:50 Blood Blood Culture - Preliminary NO GROWTH AFTER 24 HOURS Resulted 11/23/19 19:40 Blood Blood Culture - Preliminary Gram Negative Sabas Resulted Laboratory Tests 11/24/19 12:16: POC Whole Blood Glucose [Pending] 11/24/19 17:48: POC Whole Blood Glucose [Pending] 11/24/19 23:06: POC Whole Blood Glucose 135H 11/25/19 04:51: White Blood Count 170.7*H, Red Blood Count 2.40L, Hemoglobin 7.1L, Hematocrit 22.6L, Mean Corpuscular Volume 94, Mean Corpuscular Hemoglobin 29.7, Mean Corpuscular Hemoglobin Concent 31.6L, Red Cell Distribution Width 15.9H, Platelet Count 53L, Mean Platelet Volume 9.5, Neutrophils (%) (Auto) , Lymphocytes (%) (Auto) , Monocytes (%) (Auto) , Eosinophils (%) (Auto) , Basophils (%) (Auto) , Differential Total Cells Counted 100, Neutrophils % ( Manual) 6L, Lymphocytes % (Manual) 10L, Monocytes % (Manual) 17H, Eosinophils % (Manual) 0, Basophils % (Manual) 0, Blast Cells % 67*H, Band Neutrophils 0, Platelet Estimate DecreasedL, Platelet Morphology Normal, Hypochromasia 3+, Anisocytosis 1+, Sodium Level 136, Potassium Level 4.8, Chloride Level 102, Carbon Dioxide Level 25, Anion Gap 9, Blood Urea Nitrogen 42H, Creatinine 1.3, Estimat Glomerular Filtration Rate 39.9, Glucose Level 81, Calcium Level 7.7L, Total Bilirubin 1.5H, Direct Bilirubin 1.0H, Aspartate Amino Transf (AST/SGOT) 80H, Alanine Aminotransferase (ALT/SGPT) 10L, Alkaline Phosphatase 288H, Total Protein 5.1L, Albumin 1.5L, Globulin 3.6, Albumin/Globulin Ratio 0.4L 11/25/19 05:37: POC Whole Blood Glucose 80 Current Medications Medications (Trade) Dose Ordered Sig/Inna Route PRN Reason Start Time Stop Time Status Last Admin Dose Admin Acetaminophen (Tylenol) 650 mg Q4H PRN GT fever 100.4, mild pain 11/10/19 10:00 12/01/19 23:14 11/24/19 12:22 Acetaminophen (Tylenol) 650 mg Q4H PRN RECTAL Temp >100.5 11/08/19 21:30 12/08/19 21:29 11/18/19 21:43 Ascorbic Acid (Vitamin C) 500 mg DAILY GT 11/02/19 09:00 12/02/19 08:59 11/25/19 09:17 Carbidopa/Levodopa (Sinemet 25/100) 2 tab QID GT 11/02/19 09:00 12/02/19 08:59 11/25/19 09:17 Chlorhexidine Gluconate (Josefa-Hex 2%) 1 applic DAILY@2000 TOPIC 11/15/19 20:00 02/13/20 19:59 11/24/19 20:46 Dextrose (Dextrose 50%) 25 ml Q30M PRN IV Hypoglycemia 11/09/19 20:00 02/07/20 19:59 Dextrose (Dextrose 50%) 50 ml Q30M PRN IV Hypoglycemia 11/09/19 20:00 02/07/20 19:59 Docusate Sodium (Colace) 100 mg DAILY GT 11/02/19 09:00 12/02/19 08:59 11/25/19 09:17 Entacapone (Comtan) 400 mg THREE TIMES A DAY ORAL 11/10/19 13:00 12/02/19 17:59 11/25/19 09:18 Fluconazole (Diflucan) 200 mg DAILY ORAL 11/24/19 09:00 12/01/19 08:59 11/25/19 09:18 Hydroxyurea (Hydrea) 500 mg BID ORAL 11/24/19 20:00 11/29/19 19:59 11/25/19 09:18 Insulin Aspart (NovoLOG) Q6HR SUBQ 11/06/19 12:00 02/04/20 11:59 11/23/19 12:14 Metoclopramide HCl (Reglan) 5 mg EVERY 8 HOURS IVP 11/25/19 14:00 12/25/19 13:59 Metoclopramide HCl (Reglan) 5 mg Q6H PRN IVP nausea or vomiting 11/01/19 23:15 12/01/19 23:14 11/02/19 12:51 Midodrine (Pro-Amatine) 10 mg THREE TIMES A DAY ORAL 11/24/19 09:00 02/22/20 08:59 11/25/19 09:18 Multivitamins (Multivitamins W/ Minerals 15ml Liquid) 15 ml DAILY GT 11/02/19 09:00 12/02/19 08:59 11/25/19 09:17 Ondansetron HCl (Zofran) 4 mg Q4H PRN IVP Nausea & Vomiting 11/01/19 23:15 12/01/19 23:14 Pantoprazole (Protonix) 40 mg DAILY IVP 11/05/19 09:00 12/05/19 08:59 11/25/19 09:28 Polyethylene Glycol (Miralax) 17 gm DAILY PRN GT Constipation 11/02/19 08:30 12/02/19 07:59 Polymyxin B Sulfate 345862 units/Dextrose 550 ml @ 550 mls/hr EVERY 12 HOURS IV 11/24/19 21:00 12/01/19 20:59 11/25/19 09:37 Quetiapine Fumarate (SEROqueL) 50 mg QHS GT 11/02/19 21:00 12/17/19 20:59 11/24/19 20:47 Sennosides (Senokot) 8.6 mg QHS GT 11/02/19 21:00 12/02/19 20:59 11/24/19 20:47 Tigecycline 50 mg/ Sodium Chloride 110 ml @ 220 mls/hr Q12H IVPB 11/20/19 00:00 11/27/19 00:00 11/24/19 23:31 Trimethoprim/ Sulfamethoxazole (Bactrim-DS) 1 tab Q12HR ORAL 11/23/19 21:00 11/30/19 20:59 11/25/19 09:18 Zinc Oxide (Desitin) 1 applic FOUR TIMES A DAY TOPIC 11/04/19 14:00 12/04/19 13:59 11/24/19 20:48 Assessment/Plan Assessment/Plan ASSESSMENT Chronic respiratory failure ventilator dependent with tracheostomy status Sepsis Bacteremia PICC infection with Klebsiella CRE Persistent fevers Hypotension, possible early shock Pneumonia, possible aspiration UTI with Klebsiella 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), s/p 2 u PRBC Pancytopenia Leukocytosis Dysphagia, feeding by G-tube Advanced Parkinson's disease Severe protein calorie malnutrition Malfunctioning G tube ( inadvertently was removed), s/p EGD and removal of G tube, s/p EGD and new PEG 11/20 Multiple DTI , POA Ovarian mass consistent with neoplasm AML Suspected COVID-19 infection -ruled out Severe protein calorie malnutrition Functional quadriplegia E/lyte abnormalities PLAN OF CARE NAZARIO ( was for a short time in ICU, responded to IVC boluses and albumin boluses) ventilator support, trach care, pulm toilet desaturated am 11/24; FiO2 increased to 60% get ABG and CXR CXR 11/06 unchanged, SCX 11/05 Providencia , Klebsiella CRE, Pseudomonas CXR 11/09 no change: Tracheostomy remains in place. Basilar infiltrates not significantly changed. Small effusions unchanged CXR 11/12 -Persistent low lung volumes, may be related to shallow inspiration. Bilateral patchy interstitial and air space opacities, most prominent in the left lung base. Stable to mildly worsened compared to the prior exam and is concerning for pneumonia versus pulmonary edema. Possible small left pleural effusion. CXR 11/14 - Slight worsening of bilateral alveolar densities which could be worsening infiltrates and/or edema repeat CXR 11/17 no significant changes from before CXR 11/22 no changes for 5 days BCX 10/31 05/28 Staph haemolyticus, likely contaminant BCX 11/01 05/28 MRSA BCX 11/03 NGTD UCX Klebsiella CRE BCX 11/05 ACB MDR, Staph BCX 11/06 NGTD BCX 11/10 GNR UCX 11/10 + yeast BCX 11/13 NGTD abx as per ID recs leuk , intermittent fevers RUE PICC was dc with tip cx and LUE PICC inserted by IR 11/15 PICC tip CX + Klebsiella CRE -CT A/P 11/09 BILATERAL SMALL PLEURAL EFFUSIONS AND DEPENDENT INFILTRATES. HUGE SEPTATED CYSTIC MASS ARISING FROM THE PELVIS EXTENDING INTO THE ABDOMEN MOST LIKELY OF OVARIAN ORIGIN. SMALL AMOUNT OF FREE FLUID ADJACENT TO THE HEPATIC AND SPLENIC EDGE WELL IN THE PELVIS. LEFT RENAL STONE. POSSIBLE SLUDGE OR NONCALCIFIED STONES LAYERING IN THE GALLBLADDER. LEFT LOWER QUADRANT STOMA. SEVERE DEGENERATIVE CHANGES AND DEXTROSCOLIOSIS OF THE SPINE. ANASARCA. ECHO with pEF 55%, no discrete vegetation seen COVID 11/01 NGT, Venous Duplex BLE NGT, apply SCD, started on Midodrine this am, BP better monitor HH with goal to keep Hgb >7, trend PLT severe pancytopenia likely 2 to AML s/p now 2 unit PLT s/p[ PRBC 11/23, Hgb still 7.1 -> ? due to AML ? bleeding -> GI on board leukocytosis 2 to sepsis and partially probably due to malignancy/AML and ovarian Ca replace lytes as needed, monitor volumes asp precautions GT was inadvertently removed s/p replacement 11/03 by GI started TF still leaking plan replacement with GJ tube but cancelled due to leukocytosis s/p EGD 11/07, old G tube removed, unable to place a new one due to a large site , was on TPN strict aspir precautions s/p new PEG 11/20 TF as per GI and taper TPN if tolerates , fup with GI recs still some leakage around G tube protein supplement as per RD recs Reglan added by GI continue SNF meds as per primary supportive care bowel regimen wound care as per surgeon recs overall prognosis grave, given sepsis and multiple comorbidities, with superimposed AML and ovarian mass, DNR/DNI status case discussed and evaluated by supervising physician Eugene Dan MD 11/25/19 1517: Subjective Allergies: Coded Allergies: PENICILLINS (Verified Allergy, Unknown, 11/01/19) VANCOMYCIN (Verified Allergy, Unknown, 11/01/19) Uncoded Allergies: PENICI (Allergy, Unknown, 11/01/19) Assessment/Plan Assessment/Plan Patient seen and examined with WASHER MACHINE. Agree with above A&P as it reflects our joint deliberations Martha Chandler NP Nov 25, 2019 10:57 Eugene Dan MD Nov 25, 2019 15:17
[2019-11-25] MEDS: Desitin Rash Paste TOPIC SCH ×4 (12:01→20:20)
--- NOTE | 2019-11-25 12:22 | Diagnostic Imaging Report ---
EXAM: XR Chest, 1 View CLINICAL HISTORY: Shortness of breath TECHNIQUE: Frontal view of the chest. COMPARISON: Chest x-ray dated 11/23/19 FINDINGS: Lungs: Persistent low lung volumes. Persistent pulmonary vascular congestion and interstitial haziness. Cannot exclude left lung base infiltrate.. Pleural space: No significant change in appearance of a layering left pleural effusion.. Heart: Unremarkable. No cardiomegaly. Mediastinum: Unremarkable. Bones/joints: Unremarkable. Tubes, lines and devices: Stable positioning of the tracheostomy tube. Telemetry leads overlie the thorax. IMPRESSION: No significant interval change from the prior day's chest x-ray. Persistent layering left pleural effusion with pulmonary vascular congestion. Cannot exclude a left lung base infiltrate.
[2019-11-25] MEDS: [UNRECOGNIZED DRUG - OTHER] IVPB SCH ×2 (13:11)
[2019-11-25] MEDS: Metoclopramide 10mg/2ml Inj IVP SCH ×2 (13:20→22:53)
--- NOTE | 2019-11-25 14:13 | NUR ---
NURSE NOTES: Informed Martha Chandler NP regarding latest ABG result. Awaiting for call back.
--- NOTE | 2019-11-25 14:13 | NUR ---
CASE MANAGEMENT: REVIEW 11/25/2019 SI:SEPSIS. AML. Respiratory failure with vent. VS: T 100.4 HR 126 RR 20 B/P 195/66 SATS 88% ON MECH VENT FIO2 60 LABS: WBC 170.7 HG 7.1 HCT 22.6 BUN 42 CA 7.7 TBILI 1.5 DBILI 1 AST 80 ALT 10 ALP 288 ABGs pH 7.270 PCO2 50.8 PO2 53.6 O2 SAT 85.5 BE -3.6 IS: POLYMYXIN IV Q12H HYDREA PO BID DIFLUCAN PO QD TIGECYCLINE IV Q12H BACTRIM PO Q12H INSULIN ASPART SUBQ Q6H SDU PLAN OF CARE: s/p EGD and peg placement G TF pending blood transfusion
--- NOTE | 2019-11-25 14:19 | NUR ---
NURSE NOTES: Martha Chandler NP ordered change of ventilator settings. Will inform respiratory therapist.
--- NOTE | 2019-11-25 14:26 | Surgery Progress Note ---
Surgery Progress Note Subjective Additional Comments ill appearing no n/v/f/c labs noted Objective Last 24 Hour Vital Signs Date Time Temp Pulse Resp B/P (MAP) Pulse Ox O2 Delivery O2 Flow Rate FiO2 11/25/19 12:00 99.2 115 21 94/45 (61) 97 11/25/19 12:00 60 11/25/19 12:00 Mechanical Ventilator 11/25/19 11:41 120 11/25/19 11:35 126 34 40 11/25/19 09:20 87/74 (78) 11/25/19 08:00 Mechanical Ventilator 11/25/19 08:00 100.4 126 20 195/66 (109) 88 11/25/19 08:00 60 11/25/19 07:48 60 11/25/19 07:34 120 11/25/19 06:40 121 36 40 11/25/19 04:00 40 11/25/19 04:00 Mechanical Ventilator 11/25/19 04:00 131 11/25/19 04:00 99.7 141 20 107/71 (83) 99 11/25/19 02:44 130 29 40 11/25/19 00:00 40 11/25/19 00:00 98.0 130 20 108/54 (72) 100 11/25/19 00:00 Mechanical Ventilator 11/25/19 00:00 130 11/24/19 23:06 128 26 40 11/24/19 20:00 119 11/24/19 20:00 Mechanical Ventilator 11/24/19 20:00 40 11/24/19 20:00 98.2 120 20 131/75 (93) 100 11/24/19 18:50 113 24 40 11/24/19 16:00 Mechanical Ventilator 11/24/19 16:00 40 11/24/19 16:00 113 11/24/19 16:00 98.2 114 20 109/52 (71) 100 11/24/19 14:40 111 20 40 I&O Intake and Output 11/24/19 11/25/19 19:00 07:00 Intake Total 210 ml 900 ml Output Total 800 ml 700 ml Balance -590 ml 200 ml Intake Free Water 50 ml IV Total 660 ml Tube Feeding 160 ml 240 ml Output Urine Total 800 ml 700 ml Dressing: other Wound: other Drains: other Cardiovascular: RSR Respiratory: decreased breath sounds Abdomen: soft, non-tender, present bowel sounds Extremities: no cyanosis Laboratory Tests Test 11/24/19 17:48 11/24/19 23:06 11/25/19 04:51 11/25/19 05:37 POC Whole Blood Glucose Pending 135 MG/DL (74-106) H 80 MG/DL (74-106) White Blood Count 170.7 K/UL (4.8-10.8) *H Red Blood Count 2.40 M/UL (4.20-5.40) L Hemoglobin 7.1 G/DL (12.0-16.0) L Hematocrit 22.6 % (37.0-47.0) L Mean Corpuscular Volume 94 FL (80-99) Mean Corpuscular Hemoglobin 29.7 PG (27.0-31.0) Mean Corpuscular Hemoglobin Concent 31.6 G/DL (32.0-36.0) L Red Cell Distribution Width 15.9 % (11.6-14.8) H Platelet Count 53 K/UL (150-450) L Mean Platelet Volume 9.5 FL (6.5-10.1) Neutrophils (%) (Auto) % (45.0-75.0) Lymphocytes (%) (Auto) % (20.0-45.0) Monocytes (%) (Auto) % (1.0-10.0) Eosinophils (%) (Auto) % (0.0-3.0) Basophils (%) (Auto) % (0.0-2.0) Differential Total Cells Counted 100 Neutrophils % (Manual) 6 % (45-75) L Lymphocytes % (Manual) 10 % (20-45) L Monocytes % (Manual) 17 % (1-10) H Eosinophils % (Manual) 0 % (0-3) Basophils % (Manual) 0 % (0-2) Blast Cells % 67 % (0-0) *H Band Neutrophils 0 % (0-8) Platelet Estimate Decreased L Platelet Morphology Normal Hypochromasia 3+ Anisocytosis 1+ Sodium Level 136 MMOL/L (136-145) Potassium Level 4.8 MMOL/L (3.5-5.1) Chloride Level 102 MMOL/L (98-107) Carbon Dioxide Level 25 MMOL/L (21-32) Anion Gap 9 mmol/L (5-15) Blood Urea Nitrogen 42 mg/dL (7-18) H Creatinine 1.3 MG/DL (0.55-1.30) Estimat Glomerular Filtration Rate 39.9 mL/min (>60) Glucose Level 81 MG/DL (74-106) Calcium Level 7.7 MG/DL (8.5-10.1) L Total Bilirubin 1.5 MG/DL (0.2-1.0) H Direct Bilirubin 1.0 MG/DL (0.0-0.3) H Aspartate Amino Transf (AST/SGOT) 80 U/L (15-37) H Alanine Aminotransferase (ALT/SGPT) 10 U/L (12-78) L Alkaline Phosphatase 288 U/L (46-116) H Total Protein 5.1 G/DL (6.4-8.2) L Albumin 1.5 G/DL (3.4-5.0) L Globulin 3.6 g/dL Albumin/Globulin Ratio 0.4 (1.0-2.7) L Test 11/25/19 13:48 Arterial Blood pH 7.270 (7.350-7.450) Arterial Blood Partial Pressure CO2 50.8 mmHg (35.0-45.0) H Arterial Blood Partial Pressure O2 53.6 mmHg (75.0-100.0) L Arterial Blood HCO3 23.2 mmol/L (22.0-26.0) Arterial Blood Oxygen Saturation 85.5 % (95-100) *L Arterial Blood Base Excess -3.6 (-2-2) L Sergio Test Positive Plan Problems: (1) Decubitus skin ulcer Assessment & Plan: Pt presented on admission with multiple Pressure Injuries, and contractures. Large Soft Mass noted to lateral R chest ,just inferior to Breast.Soft mass that uis violaceous and denuded. Unstageable Pressure injury R thoracic. Wound presents as partially opened DTPI( L)6cm x (W)8.5cm. 95% Soft eschar flap,5% dee. Marginal erythema along borders In addition scattered linear and purple area periwound. Full thickness stage 4 Sacral Pressure Injury(L)9.3cm x (W)8.7cm. Base of wound is 95% necrotic,but bone is palpable.Mild odor noted. No exudate noted. Non-blanching erythema periwound. Unstageable Pressure Injury R trochanter(L)3.5cm x (W)4.2cm. Base of wound is 90 % soft eschar, 10% pink epithelial. Edges adherent to base of wound .No erythema induration or fluctuance periwound. Unstageable Pressure injury R Ischium(L)3.5cm x (W)2.5cm. Dry eschar at base of wound, edges are adherent with surrounding pink epithelial. No erythema or induration periwound. DTPI L trochanter(L)4cm x (W)1cm. Stable dry eschar L Hallux(L)1.6cm x (W)2cm.NO erythema fluctuance or induration periwound. L 1st metatarsal TMA noted. Stable dry eschar distal/lateral L foot (L)1.5cm x (W)3cm. No erythema, induration or fluctuance periwound. DTPI noted to plantar L foot.(L)0.9cm x (W)0.9cm. Base of wound is fluctuant, purple with maroon borders. Unstageable Pressure injury L lateral Malleolus. Stable dry eschar noted.No erythema or induration periwound. L heel is boggy with non-blanching erythema. Unstageable Pressure injury R Hallux and plantar aspect(L)3.5cm x (W)3.4cm. Soft eschar at base of wound with marginal erythema along borders. R heel is boggy with Non-Blanching erythema. Unstageable Presure injury distal/Lateral R foot . Stable dry eschar noted . No erythema of fluctuance periwound. Tx.Plan: Cleanse Sacral Wound with Saline. Loosely pack with Therahoney impregnated Kerlix.Applpy Moisture Barrier Paste periwound. Cover with Optifoam drsg. Change Daily and prn. Cleanse Soft Mass R chest with Saline. Cover with Optifoam drsg. Change Daily and prn. Cleanse wounds R trochanter, R Ischium with Saline. Apply Moisture Barrier Paste.Cover with Optifoam drsg. Change every 3 days and prn. Apply Moisture Barrier to L trochanter. Cvoer with Optifoam drsg. Change every 3 days and prn. Apply Betadine to wounds R and L foot. Cover each wound with Optifoam drsg. Changee very 3 days and prn. Apply Cavilon Skin Barrier to both heels. Cover each heel with Optifoam drsg. Change every 7 days and prn. APM/ANA Mattress overlay. turn q2h nutritional optimization (2) Malnutrition Assessment & Plan: DAILY ESTIMATED NEEDS: Needs based on Critical care, wounds, 64kg 22-28 kcals/kg [id number] total kcals 1.25-2 g protein/kg 80-128 g total protein 25-30 mL/kg 0872-0832 total fluid mLs NUTRITION DIAGNOSIS: Swallowing difficulty r/t respiratory status as evidenced by pt is trach and peg dep, currently NPO, on TPN, . CURRENT TF:NPO, on TPN PARENTERAL NUTRITION RECOMMENDATIONS: D/AA Rate: 70 IL Rate: 8 Total Rate: 78 Volume: 1872 % Dextrose: 18 % AA: 5.5 Energy (kcals/kg): 1781 Protein (g/kg protein): 92 Nonprotein KCALS: 1412 GIR (mg CHO/kg/min): 3.3 % Fat KCALS: 22 NCP: N Ratio: 96:1 TPN Comment: - Maintain current TPN: -> D18%, AA 5.5% @70ml/hr w/ 20%IL @8ml/hr - all 3:1 - TF at goal meets 100% est needs, provides 28 kcal/kg and 1.4g/kg pro. - GIR<5 - IL <30% ADDITIONAL RECOMMENDATIONS: 1) Per SNF: 65 inches (5'5"); 141 lbs (64.1kg) 2) Wound care: add MEIR BID via GT w/ TF order; hold w/ TPN 3) Monitor lytes, BG, and LFT's on TPN - check updated phos and mag - Watch LFT's, AST trending up, rec updated level (3) Anemia Assessment & Plan: transfused trend labs no active bleeding stool study GI eval (4) UTI (urinary tract infection) (5) Tracheostomy dependence Assessment & Plan: Findings: The left hemidiaphragm is elevated. Atelectatic changes are present in the left lung base. There is minimal right basilar atelectasis. No definite infiltrates. There is a tracheostomy. Impression: Elevated left hemidiaphragm with considerable left basilar atelectasis. Less extensive right basilar atelectasis. Inspiration is suboptimal. Interim development of opacity of the left mid and lower lung. The left hemidiaphragm is obscured. Right lung is probably clear , although there is crowding of bronchovascular lung volumes. Tracheostomy remains. Impression: Since 11/01/2019, interim development of left mid and lower lung infiltrates versus edema and possibly pleural fluid Juan Houser Nov 25, 2019 14:26
[2019-11-25] MEDS: Midodrine 10mg tab GT SCH ×2 (17:18→23:02)
--- NOTE | 2019-11-25 17:24 | Infectious Diseases Prog Note ---
Assessment/Plan Assessment/Plan ASSESSMENT AND PLAN: 1. mrsa bacteremia, acinetobacter bacteremia, pta bacteremia, klebsiella uti ( cre) sepsis, shock, fevers, leukocytosis, sacral wound infection, AML, + blasts klebsiella(cre) pna/providencia(esbl) pna/pseudomonas pna fungal uti, ? fungemia, TPN ? line infection - picc placed 11/02/19, repeat blood cultures show acinetobacter line changed - cath tip with klebsiella - CRE - sensitive to tygacil repeat blood cultures with gram negatives - ID pending, fevers noted - tygacil, polymyxin, bactrim and diflucan - f/u on cultures - monitor labs and chest x-ray - picc line changed 11/16/19 - TTE - no vegetations identified - wound management per surgery - leukocytosis maybe secondary to AML blast crises/flare - tx per Dr. Prince and hem/onc - d/w Dr. Prince 2. Trach, vent respiratory failure. 3. Dysphagia, G-tube. 4. Anemia. 5. Thrombocytopenia - severe 6. Leukocytosis. 7. Malnutrition. 8. Ovarian mass with neoplasm. 9. Parkinson's. 10. Dementia. 11. Skin care per Surgery and protocol. Rash noted but unclear etiology, per charrer. 12. Allergies to penicillin, vancomycin 13. Social history is negative. 14. Family history is noncontributory. 15. MAR was noted. 16. Case was discussed with RN. 17. Continue treatment per primary consultants. 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 Subjective Constitutional: Reports: fever, fatigue, other - + trach and vent HEENT: Reports: congestion Respiratory: Reports: shortness of breath Cardiovascular: Reports: other - no pressors Gastrointestinal/Abdominal: Denies: nausea, vomiting, diarrhea Genitourinary: Reports: other - + dong Neurologic: Reports: weakness, other - lethargic Psychiatric: Reports: other - NA Skin: Denies: rash Hematologic: Denies: bleeding Musculoskeletal: Reports: other - NA Allergies: Coded Allergies: PENICILLINS (Verified Allergy, Unknown, 11/01/19) VANCOMYCIN (Verified Allergy, Unknown, 11/01/19) Uncoded Allergies: PENICI (Allergy, Unknown, 11/01/19) Objective Last 24 Hour Vital Signs Date Time Temp Pulse Resp B/P (MAP) Pulse Ox O2 Delivery O2 Flow Rate FiO2 11/25/19 16:00 Mechanical Ventilator 11/25/19 16:00 99.0 119 18 105/53 (70) 99 11/25/19 16:00 70 11/25/19 15:28 121 11/25/19 14:45 105 28 70 11/25/19 14:45 70 11/25/19 12:00 99.2 115 21 94/45 (61) 97 11/25/19 12:00 60 11/25/19 12:00 Mechanical Ventilator 11/25/19 11:41 120 11/25/19 11:35 126 34 40 11/25/19 09:20 87/74 (78) 11/25/19 08:00 Mechanical Ventilator 11/25/19 08:00 100.4 126 20 195/66 (109) 88 11/25/19 08:00 60 11/25/19 07:48 60 11/25/19 07:34 120 11/25/19 06:40 121 36 40 11/25/19 04:00 40 11/25/19 04:00 Mechanical Ventilator 11/25/19 04:00 131 11/25/19 04:00 99.7 141 20 107/71 (83) 99 11/25/19 02:44 130 29 40 11/25/19 00:00 40 11/25/19 00:00 98.0 130 20 108/54 (72) 100 11/25/19 00:00 Mechanical Ventilator 11/25/19 00:00 130 11/24/19 23:06 128 26 40 11/24/19 20:00 119 11/24/19 20:00 Mechanical Ventilator 11/24/19 20:00 40 11/24/19 20:00 98.2 120 20 131/75 (93) 100 11/24/19 18:50 113 24 40 Height (Feet): 5 Height (Inches): 3.00 Weight (Pounds): 161 General Appearance: no acute distress HEENT: normocephalic, atraumatic, anicteric, no JVD, status post trach Respiratory/Chest: crackles/rales, rhonchi - bilaterally Cardiovascular: normal rate, regular rhythm, no gallop/murmur Abdomen: normal bowel sounds, soft, non tender, no organomegaly, non distended Genitourinary: other - no dong Extremities: no cyanosis Skin: no rash Neurologic/Psychiatric: eyelet maker II-XII grossly normal, alert Lymphatic: no neck adenopathy Musculoskeletal: no effusion Chest x-ray - 11/05/19 - IMPRESSION: 1. Interval placement of right PICC line tip to the mid SVC. 2. Hypoventilatory lungs. Bibasilar atelectasis/consolidations, similar to prior study. 3. Probable bilateral pleural effusions. Chest x-ray - 11/07/19- Procedure: XRAY Chest 1v Procedure: XRAY Chest 1v Reason for study: Shortness of breath. Comparison films: 11/05/2019. FINDINGS: Tracheostomy and right PICC line remain in place. There is limited inspiration with bibasilar densities unchanged. Cardiac and mediastinal silhouette are within normal limits. No large effusion seen The bony thorax appear unremarkable. IMPRESSION: NO SIGNIFICANT CHANGE COMPARED TO PREVIOUS EXAM. CT abdomen and pelvis: IMPRESSION: BILATERAL SMALL PLEURAL EFFUSIONS AND DEPENDENT INFILTRATES. HUGE SEPTATED CYSTIC MASS ARISING FROM THE PELVIS EXTENDING INTO THE ABDOMEN MOST LIKELY OF OVARIAN ORIGIN. SMALL AMOUNT OF FREE FLUID ADJACENT TO THE HEPATIC AND SPLENIC EDGE WELL IN THE PELVIS. LEFT RENAL STONE. POSSIBLE SLUDGE OR NONCALCIFIED STONES LAYERING IN THE GALLBLADDER. LEFT LOWER QUADRANT STOMA. SEVERE DEGENERATIVE CHANGES AND DEXTROSCOLIOSIS OF THE SPINE. ANASARCA. Abdominal US: IMPRESSION: 1. Sludge and possible small stones in the gallbladder. No gallbladder wall thickening or pericholecystic fluid. 2. Ascites. 3. Small right pleural effusion. Chest x-ray - 11/10/19 - Procedure: XRAY Chest 1v Procedure: XRAY Chest 1v Reason for study: Reason For Exam: SOB Comparison films: 11/07/2019. FINDINGS: Tracheostomy remains in place. Basilar infiltrates not significantly changed. Small effusions unchanged. Cardiac silhouette stable. The bony thorax appear unremarkable. IMPRESSION: NO SIGNIFICANT CHANGE COMPARED TO PREVIOUS EXAM Chest x-ray - 11/18/19 - Procedure: XRAY Chest 1v Procedure: XRAY Chest 1v Reason for study: Reason For Exam: SOB Comparison films: 11/15/2019. FINDINGS: Tracheostomy remains in place. Bilateral congestion and edema are unchanged. Cardiac silhouette is obscured. Effusions unchanged. The bony thorax appear unremarkable. IMPRESSION: NO SIGNIFICANT CHANGE COMPARED TO PREVIOUS EXAM. Chest x-ray 11/23/19 - Procedure: XRAY Chest 1v Indication: Dyspnea Technique: One view of the chest Comparison: 11/18/2019 Findings: Slightly better inspiration currently. Left pleural effusion and generalized interstitial airspace hazy infiltrates and interstitial congestion persist, probably unchanged allowing for differences in degree of inspiration. Tracheostomy again demonstrated Impression: Unchanged, over 5 days, findings as above. Chest x-ray - 11/25/19 - COMPARISON: Chest x-ray dated 11/23/19 FINDINGS: Lungs: Persistent low lung volumes. Persistent pulmonary vascular congestion and interstitial haziness. Cannot exclude left lung base infiltrate.. Pleural space: No significant change in appearance of a layering left pleural effusion.. Heart: Unremarkable. No cardiomegaly. Mediastinum: Unremarkable. Bones/joints: Unremarkable. Tubes, lines and devices: Stable positioning of the tracheostomy tube. Telemetry leads overlie the thorax. IMPRESSION: No significant interval change from the prior day's chest x-ray. Persistent layering left pleural effusion with pulmonary vascular congestion. Cannot exclude a left lung base infiltrate. Microbiology Date/Time Source Procedure Growth Status 11/23/19 19:50 Blood Blood Culture - Preliminary NO GROWTH AFTER 24 HOURS Resulted 11/06/19 10:04 Sputum Induced Gram Stain - Final Complete 11/06/19 10:04 Sputum Culture - Final Providencia Stuartii K.pneumoniae Carbapenem Resist Pseudomonas Aeruginosa Complete 11/22/19 06:00 Indwelling Cath Urine Culture - Final Aundrea Tropicalis Complete 11/16/19 16:00 Arm Right Catheter Tip Culture - Final K.pneumoniae Carbapenem Resist Complete Microbiology Date/Time Source Procedure Growth Status 11/23/19 19:50 Blood Blood Culture - Preliminary NO GROWTH AFTER 24 HOURS Resulted 11/23/19 19:40 Blood Blood Culture - Preliminary Gram Negative Sabas Resulted Laboratory Tests Test 11/24/19 17:48 11/24/19 23:06 11/25/19 04:51 11/25/19 05:37 POC Whole Blood Glucose Pending 135 MG/DL (74-106) H 80 MG/DL (74-106) White Blood Count 170.7 K/UL (4.8-10.8) *H Red Blood Count 2.40 M/UL (4.20-5.40) L Hemoglobin 7.1 G/DL (12.0-16.0) L Hematocrit 22.6 % (37.0-47.0) L Mean Corpuscular Volume 94 FL (80-99) Mean Corpuscular Hemoglobin 29.7 PG (27.0-31.0) Mean Corpuscular Hemoglobin Concent 31.6 G/DL (32.0-36.0) L Red Cell Distribution Width 15.9 % (11.6-14.8) H Platelet Count 53 K/UL (150-450) L Mean Platelet Volume 9.5 FL (6.5-10.1) Neutrophils (%) (Auto) % (45.0-75.0) Lymphocytes (%) (Auto) % (20.0-45.0) Monocytes (%) (Auto) % (1.0-10.0) Eosinophils (%) (Auto) % (0.0-3.0) Basophils (%) (Auto) % (0.0-2.0) Differential Total Cells Counted 100 Neutrophils % (Manual) 6 % (45-75) L Lymphocytes % (Manual) 10 % (20-45) L Monocytes % (Manual) 17 % (1-10) H Eosinophils % (Manual) 0 % (0-3) Basophils % (Manual) 0 % (0-2) Blast Cells % 67 % (0-0) *H Band Neutrophils 0 % (0-8) Platelet Estimate Decreased L Platelet Morphology Normal Hypochromasia 3+ Anisocytosis 1+ Sodium Level 136 MMOL/L (136-145) Potassium Level 4.8 MMOL/L (3.5-5.1) Chloride Level 102 MMOL/L (98-107) Carbon Dioxide Level 25 MMOL/L (21-32) Anion Gap 9 mmol/L (5-15) Blood Urea Nitrogen 42 mg/dL (7-18) H Creatinine 1.3 MG/DL (0.55-1.30) Estimat Glomerular Filtration Rate 39.9 mL/min (>60) Glucose Level 81 MG/DL (74-106) Calcium Level 7.7 MG/DL (8.5-10.1) L Total Bilirubin 1.5 MG/DL (0.2-1.0) H Direct Bilirubin 1.0 MG/DL (0.0-0.3) H Aspartate Amino Transf (AST/SGOT) 80 U/L (15-37) H Alanine Aminotransferase (ALT/SGPT) 10 U/L (12-78) L Alkaline Phosphatase 288 U/L (46-116) H Total Protein 5.1 G/DL (6.4-8.2) L Albumin 1.5 G/DL (3.4-5.0) L Globulin 3.6 g/dL Albumin/Globulin Ratio 0.4 (1.0-2.7) L Test 11/25/19 13:48 Arterial Blood pH 7.270 (7.350-7.450) Arterial Blood Partial Pressure CO2 50.8 mmHg (35.0-45.0) H Arterial Blood Partial Pressure O2 53.6 mmHg (75.0-100.0) L Arterial Blood HCO3 23.2 mmol/L (22.0-26.0) Arterial Blood Oxygen Saturation 85.5 % (95-100) *L Arterial Blood Base Excess -3.6 (-2-2) L Sergio Test Positive Current Medications Medications (Trade) Dose Ordered Sig/Inna Route PRN Reason Start Time Stop Time Status Last Admin Dose Admin Acetaminophen (Tylenol) 650 mg Q4H PRN GT fever 100.4, mild pain 11/10/19 10:00 12/01/19 23:14 11/24/19 12:22 Acetaminophen (Tylenol) 650 mg Q4H PRN RECTAL Temp >100.5 11/08/19 21:30 12/08/19 21:29 11/18/19 21:43 Ascorbic Acid (Vitamin C) 500 mg DAILY GT 11/02/19 09:00 12/02/19 08:59 11/25/19 09:17 Carbidopa/Levodopa (Sinemet 25/100) 2 tab QID GT 11/02/19 09:00 12/02/19 08:59 11/25/19 13:21 Chlorhexidine Gluconate (Josefa-Hex 2%) 1 applic DAILY@2000 TOPIC 11/15/19 20:00 02/13/20 19:59 11/24/19 20:46 Dextrose (Dextrose 50%) 25 ml Q30M PRN IV Hypoglycemia 11/09/19 20:00 02/07/20 19:59 Dextrose (Dextrose 50%) 50 ml Q30M PRN IV Hypoglycemia 11/09/19 20:00 02/07/20 19:59 Docusate Sodium (Colace) 100 mg DAILY GT 11/02/19 09:00 12/02/19 08:59 11/25/19 09:17 Entacapone (Comtan) 400 mg THREE TIMES A DAY ORAL 11/10/19 13:00 12/02/19 17:59 11/25/19 13:21 Fluconazole (Diflucan) 200 mg DAILY ORAL 11/24/19 09:00 12/01/19 08:59 11/25/19 09:18 Hydroxyurea (Hydrea) 500 mg BID ORAL 11/24/19 20:00 11/29/19 19:59 11/25/19 09:18 Insulin Aspart (NovoLOG) Q6HR SUBQ 11/06/19 12:00 02/04/20 11:59 11/23/19 12:14 Metoclopramide HCl (Reglan) 5 mg EVERY 8 HOURS IVP 11/25/19 14:00 12/25/19 13:59 11/25/19 13:20 Metoclopramide HCl (Reglan) 5 mg Q6H PRN IVP nausea or vomiting 11/01/19 23:15 12/01/19 23:14 11/02/19 12:51 Midodrine (Pro-Amatine) 10 mg EVERY 6 HOURS GT 11/25/19 18:00 02/22/20 08:59 Multivitamins (Multivitamins W/ Minerals 15ml Liquid) 15 ml DAILY GT 11/02/19 09:00 12/02/19 08:59 11/25/19 09:17 Ondansetron HCl (Zofran) 4 mg Q4H PRN IVP Nausea & Vomiting 11/01/19 23:15 12/01/19 23:14 Pantoprazole (Protonix) 40 mg DAILY IVP 11/05/19 09:00 12/05/19 08:59 11/25/19 09:28 Polyethylene Glycol (Miralax) 17 gm DAILY PRN GT Constipation 11/02/19 08:30 12/02/19 07:59 Polymyxin B Sulfate [id number] units/Dextrose 550 ml @ 550 mls/hr EVERY 12 HOURS IV 11/24/19 21:00 12/01/19 20:59 11/25/19 09:37 Quetiapine Fumarate (SEROqueL) 50 mg QHS GT 11/02/19 21:00 12/17/19 20:59 11/24/19 20:47 Sennosides (Senokot) 8.6 mg QHS GT 11/02/19 21:00 12/02/19 20:59 11/24/19 20:47 Tigecycline 50 mg/ Sodium Chloride 110 ml @ 220 mls/hr Q12H IVPB 11/20/19 00:00 11/27/19 00:00 11/25/19 13:11 Trimethoprim/ Sulfamethoxazole (Bactrim-DS) 1 tab Q12HR ORAL 11/23/19 21:00 11/30/19 20:59 11/25/19 09:18 Zinc Oxide (Desitin) 1 applic FOUR TIMES A DAY TOPIC 11/04/19 14:00 12/04/19 13:59 11/25/19 13:20 González Yadav MD Nov 25, 2019 17:24
--- NOTE | 2019-11-25 18:06 | Internal Med Progress Note ---
Subjective Date of Service: Nov 25, 2019 Physician Name Fredrick Prince Attending Physician Fredrick Prince MD Current Medications Medications (Trade) Dose Ordered Sig/Inna Route PRN Reason Start Time Stop Time Status Last Admin Dose Admin Acetaminophen (Tylenol) 650 mg Q4H PRN GT fever 100.4, mild pain 11/10/19 10:00 12/01/19 23:14 11/24/19 12:22 Acetaminophen (Tylenol) 650 mg Q4H PRN RECTAL Temp >100.5 11/08/19 21:30 12/08/19 21:29 11/18/19 21:43 Ascorbic Acid (Vitamin C) 500 mg DAILY GT 11/02/19 09:00 12/02/19 08:59 11/25/19 09:17 Carbidopa/Levodopa (Sinemet 25/100) 2 tab QID GT 11/02/19 09:00 12/02/19 08:59 11/25/19 17:18 Chlorhexidine Gluconate (Josefa-Hex 2%) 1 applic DAILY@1999 TOPIC 11/15/19 20:00 02/13/20 19:59 11/24/19 20:46 Dextrose (Dextrose 50%) 25 ml Q30M PRN IV Hypoglycemia 11/09/19 20:00 02/07/20 19:59 Dextrose (Dextrose 50%) 50 ml Q30M PRN IV Hypoglycemia 11/09/19 20:00 02/07/20 19:59 Docusate Sodium (Colace) 100 mg DAILY GT 11/02/19 09:00 12/02/19 08:59 11/25/19 09:17 Entacapone (Comtan) 400 mg THREE TIMES A DAY ORAL 11/10/19 13:00 12/02/19 17:59 11/25/19 17:17 Fluconazole (Diflucan) 200 mg DAILY ORAL 11/24/19 09:00 12/01/19 08:59 11/25/19 09:18 Hydroxyurea (Hydrea) 500 mg BID ORAL 11/24/19 20:00 11/29/19 19:59 11/25/19 17:17 Insulin Aspart (NovoLOG) Q6HR SUBQ 11/06/19 12:00 02/04/20 11:59 11/23/19 12:14 Metoclopramide HCl (Reglan) 5 mg EVERY 8 HOURS IVP 11/25/19 14:00 12/25/19 13:59 11/25/19 13:20 Metoclopramide HCl (Reglan) 5 mg Q6H PRN IVP nausea or vomiting 11/01/19 23:15 12/01/19 23:14 11/02/19 12:51 Midodrine (Pro-Amatine) 10 mg EVERY 6 HOURS GT 11/25/19 18:00 02/22/20 08:59 11/25/19 17:18 Multivitamins (Multivitamins W/ Minerals 15ml Liquid) 15 ml DAILY GT 11/02/19 09:00 12/02/19 08:59 11/25/19 09:17 Ondansetron HCl (Zofran) 4 mg Q4H PRN IVP Nausea & Vomiting 11/01/19 23:15 12/01/19 23:14 Pantoprazole (Protonix) 40 mg DAILY IVP 11/05/19 09:00 12/05/19 08:59 11/25/19 09:28 Polyethylene Glycol (Miralax) 17 gm DAILY PRN GT Constipation 11/02/19 08:30 12/02/19 07:59 Polymyxin B Sulfate 727726 units/Dextrose 550 ml @ 550 mls/hr EVERY 12 HOURS IV 11/24/19 21:00 12/01/19 20:59 11/25/19 09:37 Quetiapine Fumarate (SEROqueL) 50 mg QHS GT 11/02/19 21:00 12/17/19 20:59 11/24/19 20:47 Sennosides (Senokot) 8.6 mg QHS GT 11/02/19 21:00 12/02/19 20:59 11/24/19 20:47 Tigecycline 50 mg/ Sodium Chloride 110 ml @ 220 mls/hr Q12H IVPB 11/26/19 00:00 12/03/19 00:00 Trimethoprim/ Sulfamethoxazole (Bactrim-DS) 1 tab Q12HR ORAL 11/23/19 21:00 11/30/19 20:59 11/25/19 09:18 Zinc Oxide (Desitin) 1 applic FOUR TIMES A DAY TOPIC 11/04/19 14:00 12/04/19 13:59 11/25/19 17:18 Allergies: Coded Allergies: PENICILLINS (Verified Allergy, Unknown, 11/01/19) VANCOMYCIN (Verified Allergy, Unknown, 11/01/19) Uncoded Allergies: PENICI (Allergy, Unknown, 11/01/19) ROS Limited/Unobtainable: Yes All Systems: reviewed and negative except above Subjective s/p EGD and PEG placed J was unsuccessful TF increased + blood cx PRBC given wbc 170k non verbal, chronic trach Objective Last Vital Signs Date Time Temp Pulse Resp B/P (MAP) Pulse Ox O2 Delivery O2 Flow Rate FiO2 11/25/19 16:00 Mechanical Ventilator 11/25/19 16:00 99.0 119 18 105/53 (70) 99 11/25/19 16:00 70 General Appearance: no apparent distress Neck: other - +trch Cardiovascular: normal rate, regular rhythm, systolic murmur Respiratory/Chest: rhonchi - bilaterally Abdomen: normal bowel sounds, non tender, soft Edema: other - +edema Skin: other - +ress ulcers Laboratory Tests Test 11/24/19 23:06 11/25/19 04:51 11/25/19 05:37 11/25/19 13:48 POC Whole Blood Glucose 135 MG/DL (74-106) H 80 MG/DL (74-106) White Blood Count 170.7 K/UL (4.8-10.8) *H Red Blood Count 2.40 M/UL (4.20-5.40) L Hemoglobin 7.1 G/DL (12.0-16.0) L Hematocrit 22.6 % (37.0-47.0) L Mean Corpuscular Volume 94 FL (80-99) Mean Corpuscular Hemoglobin 29.7 PG (27.0-31.0) Mean Corpuscular Hemoglobin Concent 31.6 G/DL (32.0-36.0) L Red Cell Distribution Width 15.9 % (11.6-14.8) H Platelet Count 53 K/UL (150-450) L Mean Platelet Volume 9.5 FL (6.5-10.1) Neutrophils (%) (Auto) % (45.0-75.0) Lymphocytes (%) (Auto) % (20.0-45.0) Monocytes (%) (Auto) % (1.0-10.0) Eosinophils (%) (Auto) % (0.0-3.0) Basophils (%) (Auto) % (0.0-2.0) Differential Total Cells Counted 100 Neutrophils % (Manual) 6 % (45-75) L Lymphocytes % (Manual) 10 % (20-45) L Monocytes % (Manual) 17 % (1-10) H Eosinophils % (Manual) 0 % (0-3) Basophils % (Manual) 0 % (0-2) Blast Cells % 67 % (0-0) *H Band Neutrophils 0 % (0-8) Platelet Estimate Decreased L Platelet Morphology Normal Hypochromasia 3+ Anisocytosis 1+ Sodium Level 136 MMOL/L (136-145) Potassium Level 4.8 MMOL/L (3.5-5.1) Chloride Level 102 MMOL/L (98-107) Carbon Dioxide Level 25 MMOL/L (21-32) Anion Gap 9 mmol/L (5-15) Blood Urea Nitrogen 42 mg/dL (7-18) H Creatinine 1.3 MG/DL (0.55-1.30) Estimat Glomerular Filtration Rate 39.9 mL/min (>60) Glucose Level 81 MG/DL (74-106) Calcium Level 7.7 MG/DL (8.5-10.1) L Total Bilirubin 1.5 MG/DL (0.2-1.0) H Direct Bilirubin 1.0 MG/DL (0.0-0.3) H Aspartate Amino Transf (AST/SGOT) 80 U/L (15-37) H Alanine Aminotransferase (ALT/SGPT) 10 U/L (12-78) L Alkaline Phosphatase 288 U/L (46-116) H Total Protein 5.1 G/DL (6.4-8.2) L Albumin 1.5 G/DL (3.4-5.0) L Globulin 3.6 g/dL Albumin/Globulin Ratio 0.4 (1.0-2.7) L Arterial Blood pH 7.270 (7.350-7.450) Arterial Blood Partial Pressure CO2 50.8 mmHg (35.0-45.0) H Arterial Blood Partial Pressure O2 53.6 mmHg (75.0-100.0) L Arterial Blood HCO3 23.2 mmol/L (22.0-26.0) Arterial Blood Oxygen Saturation 85.5 % (95-100) *L Arterial Blood Base Excess -3.6 (-2-2) L Sergio Test Positive Microbiology Date/Time Source Procedure Growth Status 11/23/19 19:50 Blood Blood Culture - Preliminary NO GROWTH AFTER 24 HOURS Resulted 11/23/19 19:40 Blood Blood Culture - Preliminary Gram Negative Sabas Resulted Intake and Output 11/24/19 11/25/19 19:00 07:00 Intake Total 210 ml 900 ml Output Total 800 ml 700 ml Balance -590 ml 200 ml Intake Free Water 50 ml IV Total 660 ml Tube Feeding 160 ml 240 ml Output Urine Total 800 ml 700 ml Objective unable to place J tube .PEG placed 11/20 hgb 7.0 Assessment/Plan Status: stable, unchanged Assessment/Plan Impression: sepsis on admission septic shock line sepsis acinectobacter bacteremia fungal cystitis 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 hydroxyurea increase to [address] Amador due to leukocytosis from AML s/p platelet tx one unit 11/14 prbc tx one unit 11/14 ltach bobby transfer d/w family. /son NOT in agreement. appealed DC. CM f/u abx per ID worsening wbc due AML flare microfungin wound care f/u cx ID f/u electrolyte replete as needed enteral feeding ventilator pulm HHN dong pain control off aricept, allopurinol DNAR status Fredrick Prince MD Internal Medicine [phone] time spent today 35 minutes stamp time on this note may NOT be the actual encounter time. Fredrick Prince MD Nov 25, 2019 18:06
--- NOTE | 2019-11-25 18:14 | NUR ---
NURSE NOTES: Informed Dr. Prince regarding today's hgb level. No blood transfusion order at this time. Charge nurse made aware.
--- NOTE | 2019-11-25 19:20 | NUR ---
HAND-OFF: Report given to Ioana Portillo RN. No signs and symptoms of hypoglycemia. Kept clean and dry.
--- NOTE | 2019-11-25 19:21 | NUR ---
NURSE NOTES: notified Dr. Prince regarding pt's low BP ranges from 77/40 to 82/45. will wait for call back.will continue to monitor pt closely.
--- NOTE | 2019-11-25 19:21 | NUR ---
NURSE NOTES: received pt from Dana [facility]., pt is obtunded, resting on the bed. O2sat is at 97-95% no respiratory distress noted. pt has trach in right place. pt's Gtube site clean, patent, and intact. Glucerna 1.2 is running at 40 ml/hr. Bailey cath noted draining well with gravity. left upper arm PICC line noted, dressing intact, clean, and patent. call light within reach. bed at the lowest position, alarm, and locked. will continue to monitor pt with plan of care.
--- NOTE | 2019-11-25 19:25 | NUR ---
NURSE NOTES: albumin 25% 100ml once, 1 unit RBC, and NS 0.9 500ml bolus once orders received from Dr. Prince. noted and will carry on.
[2019-11-25] MEDS: Dyna-Hex 2% Top Sol 2oz TOPIC SCH (19:58)
[2019-11-25] MEDS: Acetaminophen 650mg/20.3ml GT PRN (20:18)
[2019-11-25] MEDS: Sennosides 8.6mg tab GT SCH (20:18)
--- NOTE | 2019-11-25 21:10 | NUR ---
NURSE NOTES: Blood transfusion started VS 82/100 pulse 105 Temp 98.8. O2sat 96%. will closely monitor pt.
--- NOTE | 2019-11-25 21:25 | NUR ---
NURSE NOTES: 15 minutes after start blood transfusion, VS: BP 89/40 Pulse 115 temp 99.4. will closely monitor pt.
--- NOTE | 2019-11-25 22:00 | NUR ---
NURSE NOTES: pt is still getting blood transfusion, VS: 100/55 T 98.9 pulse 107 O2sat 98%. will closely monitor pt.
[2019-11-26] VITALS (8 sets, daily range): BP systolic 0–100; BP diastolic 0–55
[2019-11-26] MEDS ORDERED: Tigecycline 50 MG in NS 110 ML IVPB SCH ×2
[2019-11-26] MEDS: Metoclopramide 10mg/2ml Inj IVP SCH ×2 (05:06→14:00)
[2019-11-26] MEDS: Midodrine 10mg tab GT SCH ×2 (05:07→12:54)
[2019-11-26] MEDS: NovoLOG Insulin Flexpen SUBQ SCH ×2 (05:15→12:00)
--- NOTE | 2019-11-26 06:11 | NUR ---
NURSE NOTES: Notified Dr. Prince regarding low BP, pt's BP came out to be 58/40. will wait for call back.
--- NOTE | 2019-11-26 06:34 | NUR ---
NURSE NOTES: spoke with Nate tissue technologist, per Nate, " we need to draw new blood". noted and will wait for new CBC
--- NOTE | 2019-11-26 06:42 | NUR ---
NURSE NOTES: pt BP 93/44, O2 sat 100% T 98.0 HR 110. call light within reach. oral suctioned. will closely monitor
--- NOTE | 2019-11-26 07:10 | NUR ---
NURSE NOTES: Dr. Marroquin paged for hypotension. BP 34/20, HR 110. Awaiting for reply
--- NOTE | 2019-11-26 07:10 | NUR ---
NURSE NOTES: Received report from SRIKANTH Hui. Pt in bed awake and not responsive to pain stimuli. No c/o pain noted from facial pain scale. IV site in left upper arm PICC patent and asymptomatic. Side railsx3 up for safety. Call light within easy reach. G-tube feeding on hold due to low BP. and shock position applied. Bed in lowest position and locked. F/C patent and intact. Trach w/Shiley 6 connecting with Vent AC 22, TV 400, fio2 70%, peep of 5 and sating 98%. Hypotension noted during making rounds. Will contact the Dr. Marroquin for hypotension
--- NOTE | 2019-11-26 07:10 | NUR ---
HAND-OFF: Report given to Min RN., endorsed plan of care, Endorsed pt's low bP.
--- NOTE | 2019-11-26 07:20 | NUR ---
NURSE NOTES: re-paged for hypotension. Awaiting for reply. Shock position applied.
--- NOTE | 2019-11-26 07:30 | NUR ---
NURSE NOTES: Dr. Hdz(community relations advisor) notified for hypotension with BP 30/20, HR 108. NS 500ml IV bolus ordered x1 and order carried out
[2019-11-26] MEDS: Hydroxyurea 500mg cap ORAL SCH (08:27)
[2019-11-26] MEDS: Docusate 100mg/10ml Liq GT SCH (08:27)
--- NOTE | 2019-11-26 08:30 | NUR ---
NURSE NOTES: Made Dr. Hdz aware of no blood pressure detected on the monitor and unable to draw ABG/AM labs this am due to low BP. BP still not detected after 500ml OF NS IV bolus given. Dr. Hdz notified and no new order received. Will continue plan of care.
[2019-11-26] MEDS: Bactrim-DS 1 tab ORAL SCH (08:32)
[2019-11-26] MEDS: Pantoprazole Inj IVP SCH (08:32)
[2019-11-26] MEDS: Ascorbic Acid 500mg tab GT SCH (08:32)
[2019-11-26] MEDS: Multivitamins W/Minerals 15 ML UDC GT SCH (08:32)
[2019-11-26] MEDS: Fluconazole 100mg tab ORAL SCH (08:32)
[2019-11-26] MEDS: Levodopa/Carbidopa 25/100 tab GT SCH ×3 (08:32→12:55)
[2019-11-26] MEDS: Desitin Rash Paste TOPIC SCH ×2 (08:33→12:55)
[2019-11-26] MEDS: Entacapone 200mg tab ORAL SCH ×2 (08:34→12:54)
[2019-11-26] MEDS: Polymyxin B Sulfate 500,000 UNITS in D5W 500ml 550 ML IV SCH (08:41)
--- NOTE | 2019-11-26 09:57 | Pulmonology Progress Note ---
Martha Chandler VENDING MACHINE ASSEMBLER 11/26/19 0957: Subjective ROS Limited/Unobtainable: Yes Gastrointestinal/Abdominal: Denies: nausea, vomiting, diarrhea Skin: Denies: rash Allergies: Coded Allergies: PENICILLINS (Verified Allergy, Unknown, 11/01/19) VANCOMYCIN (Verified Allergy, Unknown, 11/01/19) Uncoded Allergies: PENICI (Allergy, Unknown, 11/01/19) All Systems: reviewed and negative except above Subjective ABG 11/24 afternoon with hypoxia and mild acidosis FiO2 increassed to 70% AC to 22 unable to draw ABG this am due to low BP s/p albumin bolus and IVF bolus, no fevers GTF on hold Objective Last 24 Hour Vital Signs Date Time Temp Pulse Resp B/P (MAP) Pulse Ox O2 Delivery O2 Flow Rate FiO2 11/26/19 08:45 111 11/26/19 08:45 98.1 107 18 58/32 (41) 98 11/26/19 08:00 Mechanical Ventilator 11/26/19 08:00 70 11/26/19 04:10 112 11/26/19 04:00 Mechanical Ventilator 11/26/19 04:00 70 11/26/19 04:00 98.8 110 18 90/51 (64) 99 11/26/19 03:54 111 27 70 11/26/19 00:00 Mechanical Ventilator 11/26/19 00:00 98.5 103 18 100/55 (70) 99 11/25/19 23:50 115 11/25/19 23:45 115 26 70 11/25/19 20:00 70 11/25/19 20:00 Mechanical Ventilator 11/25/19 20:00 98.1 88 18 108/60 (76) 99 11/25/19 19:48 106 30 70 11/25/19 19:25 121 11/25/19 16:00 Mechanical Ventilator 11/25/19 16:00 99.0 119 18 105/53 (70) 99 11/25/19 16:00 70 11/25/19 15:28 121 11/25/19 14:45 105 28 70 11/25/19 14:45 70 11/25/19 12:00 99.2 115 21 94/45 (61) 97 11/25/19 12:00 60 11/25/19 12:00 Mechanical Ventilator 11/25/19 11:41 120 11/25/19 11:35 126 34 40 Intake and Output 11/25/19 11/26/19 19:00 07:00 Intake Total 1180 ml 1150 ml Output Total 650 ml 600 ml Balance 530 ml 550 ml Intake Free Water 90 ml IV Total 660 ml 660 ml Tube Feeding 400 ml 400 ml Other 120 ml Output Urine Total 650 ml 600 ml Objective General Appearance: no apparent distress, bedridden, vent dependent chronically ill appearing female Lines, tubes and drains: peripheral HEENT: normocephalic, atraumatic, anicteric, status post trach: Shiley #6, secretions large amount, thick consistency, white color , Vent AC 400-60%- 20 PEEP 5 Respiratory/Chest: no respiratory distress, few scattered rhonchi, intermittent tachypnea Cardiovascular/Chest: tachycardic, LUE PICC intact Abdomen: non tender, soft, distended, PEG , still some yellowish leakage around G tube , G tube site covered with dressing Extremities: no edema, spastic LE Skin Exam: warm/dry, multiple DTI POA ( sacral, ankle foot, elbow) Neurologic: abnormal gait : bedridden, not responsive Musculoskeletal: atrophy - BLE Microbiology Date/Time Source Procedure Growth Status 11/23/19 19:50 Blood Blood Culture - Preliminary NO GROWTH AFTER 48 HOURS Resulted 11/23/19 19:40 Blood Blood Culture - Final Proteus Mirabilis Complete Laboratory Tests 11/25/19 13:48: Arterial Blood pH 7.270L, Arterial Blood Partial Pressure CO2 50.8H, Arterial Blood Partial Pressure O2 53.6L, Arterial Blood HCO3 23.2, Arterial Blood Oxygen Saturation 85.5*L, Arterial Blood Base Excess -3.6L, Sergio Test Positive 11/25/19 22:56: POC Whole Blood Glucose 116H Current Medications Medications (Trade) Dose Ordered Sig/Inna Route PRN Reason Start Time Stop Time Status Last Admin Dose Admin Acetaminophen (Tylenol) 650 mg Q4H PRN GT fever 100.4, mild pain 11/10/19 10:00 12/01/19 23:14 11/25/19 20:18 Acetaminophen (Tylenol) 650 mg Q4H PRN RECTAL Temp >100.5 11/08/19 21:30 12/08/19 21:29 11/18/19 21:43 Ascorbic Acid (Vitamin C) 500 mg DAILY GT 11/02/19 09:00 12/02/19 08:59 11/26/19 08:32 Carbidopa/Levodopa (Sinemet 25/100) 2 tab QID GT 11/02/19 09:00 12/02/19 08:59 11/25/19 20:24 Chlorhexidine Gluconate (Josefa-Hex 2%) 1 applic DAILY@2000 TOPIC 11/15/19 20:00 02/13/20 19:59 11/25/19 19:58 Dextrose (Dextrose 50%) 25 ml Q30M PRN IV Hypoglycemia 11/09/19 20:00 02/07/20 19:59 Dextrose (Dextrose 50%) 50 ml Q30M PRN IV Hypoglycemia 11/09/19 20:00 02/07/20 19:59 Docusate Sodium (Colace) 100 mg DAILY GT 11/02/19 09:00 12/02/19 08:59 11/26/19 08:27 Entacapone (Comtan) 400 mg THREE TIMES A DAY ORAL 11/10/19 13:00 12/02/19 17:59 11/26/19 08:34 Fluconazole (Diflucan) 200 mg DAILY ORAL 11/24/19 09:00 12/01/19 08:59 11/26/19 08:32 Hydroxyurea (Hydrea) 500 mg BID ORAL 11/24/19 20:00 11/29/19 19:59 11/26/19 08:27 Insulin Aspart (NovoLOG) Q6HR SUBQ 11/06/19 12:00 02/04/20 11:59 11/23/19 12:14 Metoclopramide HCl (Reglan) 5 mg EVERY 8 HOURS IVP 11/25/19 14:00 12/25/19 13:59 11/26/19 05:06 Metoclopramide HCl (Reglan) 5 mg Q6H PRN IVP nausea or vomiting 11/01/19 23:15 12/01/19 23:14 11/02/19 12:51 Midodrine (Pro-Amatine) 10 mg EVERY 6 HOURS GT 11/25/19 18:00 02/22/20 08:59 11/26/19 05:07 Multivitamins (Multivitamins W/ Minerals 15ml Liquid) 15 ml DAILY GT 11/02/19 09:00 12/02/19 08:59 11/26/19 08:32 Ondansetron HCl (Zofran) 4 mg Q4H PRN IVP Nausea & Vomiting 11/01/19 23:15 12/01/19 23:14 Pantoprazole (Protonix) 40 mg DAILY IVP 11/05/19 09:00 12/05/19 08:59 11/26/19 08:32 Polyethylene Glycol (Miralax) 17 gm DAILY PRN GT Constipation 11/02/19 08:30 12/02/19 07:59 Polymyxin B Sulfate [id number] units/Dextrose 550 ml @ 550 mls/hr EVERY 12 HOURS IV 11/24/19 21:00 12/01/19 20:59 11/26/19 08:41 Quetiapine Fumarate (SEROqueL) 50 mg QHS GT 11/02/19 21:00 12/17/19 20:59 11/24/19 20:47 Sennosides (Senokot) 8.6 mg QHS GT 11/02/19 21:00 12/02/19 20:59 11/25/19 20:18 Tigecycline 50 mg/ Sodium Chloride 110 ml @ 220 mls/hr Q12H IVPB 11/26/19 00:00 12/03/19 00:00 11/25/19 23:05 Trimethoprim/ Sulfamethoxazole (Bactrim-DS) 1 tab Q12HR ORAL 11/23/19 21:00 11/30/19 20:59 11/26/19 08:32 Zinc Oxide (Desitin) 1 applic FOUR TIMES A DAY TOPIC 11/04/19 14:00 12/04/19 13:59 11/26/19 08:33 Assessment/Plan Assessment/Plan ASSESSMENT Chronic respiratory failure ventilator dependent with tracheostomy status Sepsis Bacteremia PICC infection with Klebsiella CRE Persistent fevers Hypotension, possible early shock Pneumonia, possible aspiration UTI with Klebsiella 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), s/p 2 u PRBC Pancytopenia Leukocytosis Dysphagia, feeding by G-tube Advanced Parkinson's disease Severe protein calorie malnutrition Malfunctioning G tube ( inadvertently was removed), s/p EGD and removal of G tube, s/p EGD and new PEG 11/20 Multiple DTI , POA Ovarian mass consistent with neoplasm AML Suspected COVID-19 infection -ruled out Severe protein calorie malnutrition Functional quadriplegia E/lyte abnormalities PLAN OF CARE NAZARIO ( was for a short time in ICU, responded to IVC boluses and albumin boluses) ventilator support, trach care, pulm toilet desaturated am 11/24; FiO2 increased to 60% 11/24 ABG woith hypoxia and mild acidosis increased Fio2 to 70% and AC to 22 unable to get ABG this am due to low BP intermit tachypnea and low tachycardia CXR 11/24 ->Persistent layering left pleural effusion with pulmonary vascular congestion. Cannot exclude a left lung base infiltrate. Prior: CXR 11/06 unchanged, SCX 11/05 Providencia , Klebsiella CRE, Pseudomonas CXR 11/09 no change: Tracheostomy remains in place. Basilar infiltrates not significantly changed. Small effusions unchanged CXR 11/12 -Persistent low lung volumes, may be related to shallow inspiration. Bilateral patchy interstitial and air space opacities, most prominent in the left lung base. Stable to mildly worsened compared to the prior exam and is concerning for pneumonia versus pulmonary edema. Possible small left pleural effusion. CXR 11/14 - Slight worsening of bilateral alveolar densities which could be worsening infiltrates and/or edema repeat CXR 11/17 no significant changes from before CXR 11/22 no changes for 5 days BP low, s/p albumin bolus and IVF bolus BCX 10/31 05/28 Staph haemolyticus, likely contaminant BCX 11/01 05/28 MRSA BCX 11/03 NGTD UCX Klebsiella CRE BCX 11/05 ACB MDR, Staph BCX 11/06 NGTD BCX 11/10 GNR UCX 11/10 + yeast BCX 11/13 NGTD abx as per ID recs leuk , intermittent fevers RUE PICC was dc with tip cx and LUE PICC inserted by IR 11/15 PICC tip CX + Klebsiella CRE -CT A/P 11/09 BILATERAL SMALL PLEURAL EFFUSIONS AND DEPENDENT INFILTRATES. HUGE SEPTATED CYSTIC MASS ARISING FROM THE PELVIS EXTENDING INTO THE ABDOMEN MOST LIKELY OF OVARIAN ORIGIN. SMALL AMOUNT OF FREE FLUID ADJACENT TO THE HEPATIC AND SPLENIC EDGE WELL IN THE PELVIS. LEFT RENAL STONE. POSSIBLE SLUDGE OR NONCALCIFIED STONES LAYERING IN THE GALLBLADDER. LEFT LOWER QUADRANT STOMA. SEVERE DEGENERATIVE CHANGES AND DEXTROSCOLIOSIS OF THE SPINE. ANASARCA. ECHO with pEF 55%, no discrete vegetation seen COVID 11/01 NGT, Venous Duplex BLE NGT, apply SCD, started on Midodrine this am, BP better monitor HH with goal to keep Hgb >7, trend PLT severe pancytopenia likely 2 to AML s/p now 2 unit PLT s/p[ PRBC 11/23, Hgb still 7.1 -> ? due to AML ? bleeding -> GI on board leukocytosis 2 to sepsis and partially probably due to malignancy/AML and ovarian Ca replace lytes as needed, monitor volumes asp precautions GT was inadvertently removed s/p replacement 11/03 by GI started TF still leaking plan replacement with GJ tube but cancelled due to leukocytosis s/p EGD 11/07, old G tube removed, unable to place a new one due to a large site , was on TPN strict aspir precautions s/p new PEG 11/20 TF as per GI and taper TPN if tolerates , fup with GI recs still some leakage around G tube now GTF on hold protein supplement as per RD recs Reglan added by GI continue SNF meds as per primary supportive care bowel regimen wound care as per surgeon recs overall prognosis grave, given sepsis and multiple comorbidities, with superimposed AML and ovarian mass,now also hypotensive DNR/DNI status case discussed and evaluated by supervising physician Eugene Dan MD 11/27/19 1446: Subjective Allergies: Coded Allergies: PENICILLINS (Verified Allergy, Unknown, 11/01/19) VANCOMYCIN (Verified Allergy, Unknown, 11/01/19) Uncoded Allergies: PENICI (Allergy, Unknown, 11/01/19) Assessment/Plan Assessment/Plan Patient seen and examined with VENDING MACHINE ASSEMBLER. Agree with above A&P as it reflects our joint deliberations. Martha Chandler VENDING MACHINE ASSEMBLER Nov 26, 2019 09:57 Eugene Dan MD Nov 27, 2019 14:46
--- NOTE | 2019-11-26 11:31 | NUR ---
CASE MANAGEMENT: REVIEW 11/26/2019 SI:SEPSIS. AML. Respiratory failure with vent. VS: T 98.1 HR 107 RR 18 B/P 58/32 SATS 98% ON MECH VENT FIO2 70 LABS: NONE TODAY IS: POLYMYXIN IV Q12H HYDREA PO BID DIFLUCAN PO QD TIGECYCLINE IV Q12H BACTRIM PO Q12H INSULIN ASPART SUBQ Q6H SDU PLAN OF CARE: unable to draw ABG this am due to low BP GTF on hold
[2019-11-26] MEDS ORDERED: Meropenem 1gm in NS 55ml IVPB SCH (12:00)
[2019-11-26] MEDS ORDERED: Tubing IV Blood Pump IV ONE (13:05)
[2019-11-26] MEDS ORDERED: NS 275ml ONE (13:05)
--- NOTE | 2019-11-26 13:36 | NUR ---
NURSE NOTES: Made Dr. Hdz aware of hypoglycemia WITH 22mg/dl and not detected blood pressure after D50w 50mlx2 given as protocol. No new order received. Will continue to plan of care.
--- NOTE | 2019-11-26 14:00 | NUR ---
NURSE NOTES: BP still not detected on the monitor. Noted breathing is getting slow and shallow. Made Dr. Hdz aware.
--- NOTE | 2019-11-26 14:47 | NUR ---
NURSE NOTES: Asystolic noted on the classroom monitor. Notified to Dr. Damon(ED) for pronounce the . came and checked the patient and flat EKG on the monitor and pronounced the time of at 2:47pm. Made Dulce charge nurse and Aquiles,Cattyman aware. Dulce charge nurse called Jose Maria, son but did not answered the phone. Message left to call back.
--- NOTE | 2019-11-26 14:58 | Emergency Room Report ---
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 SERVICES ASSOCIATE Patient History Now: No Nursing Documentation-PM Past Medical History Deferred: Pt Cognitively Impaired Past Medical History: No History, Except For Hx Cardiac Problems: No Hx Cancer: No Hx Gastrointestinal Problems: Yes - G tube dependent History Of Psychiatric Problem: Yes - depression, schizophrenia Hx Neurological Problems: Yes - encephalopathy and Dementia Physical Exam Vital Signs Date Time Temp Pulse Resp B/P (MAP) Pulse Ox O2 Delivery O2 Flow Rate FiO2 11/22/19 07:26 113 24 40 11/22/19 08:00 Mechanical Ventilator 11/22/19 08:00 97.4 122/59 (80) 98 Medical Decision Making Diagnostic Impression: Primary Impression: Anemia Qualified Codes: D64.9 - Anemia, unspecified Additional Impressions: Tracheostomy dependence UTI (urinary tract infection) Qualified Codes: N39.0 - Urinary tract infection, site not specified ER Course I was called to evaluate the patient for possible . Patient had been noted to be DNR and had developed asystole. Patient was ventilator dependent. Patient had no spontaneous respirations after ventilation. Patient had not been having any spontaneous cardiac activity on cardiac monitoring on 2 separate leads. Patient was pronounced . Time of is 2:47 PM. Family be notified by staff. Last Vital Signs Date Time Temp Pulse Resp B/P (MAP) Pulse Ox O2 Delivery O2 Flow Rate FiO2 11/26/19 13:50 100 40 0/0 (0) 95 11/26/19 12:00 70 11/26/19 12:00 98.0 11/26/19 12:00 Mechanical Ventilator Disposition: Condition: Referrals: Fredrick Prince MD (PCP) Manny Damon MD Nov 26, 2019 14:58
--- NOTE | 2019-11-26 15:15 | NUR ---
HAND-OFF: Report given to SRIKANTH Cortez. Pt remains stable.
--- NOTE | 2019-11-26 15:30 | NUR ---
NURSE NOTES: [facility] Family called back and informed the patient's .
[2019-11-26] MEDS ORDERED: D5NS 1,000 ML IV SCH (16:00)
--- NOTE | 2019-11-26 16:02 | General Progress Note ---
Assessment/Plan Status: stable, unchanged Assessment/Plan: Assessment/Plan 1. AML. 2. Respiratory failure with vent. 3. Dysphagia with G-tube. 4. Ovarian mass. 5. Advanced Parkinson disease. 6. Anemia 7. Dementia. 8. Progressive acidosis concerning 9. abnormal LFT - Gallbladder ? , Shock liver / Sepsis ? 10. Hypotension Continue reglan BP support --> D5 NS IVF Hold feeds for now Abx abd ultrasound follow labs and exam elevate HOB Subjective Allergies: Coded Allergies: PENICILLINS (Verified Allergy, Unknown, 11/01/19) VANCOMYCIN (Verified Allergy, Unknown, 11/01/19) Uncoded Allergies: PENICI (Allergy, Unknown, 11/01/19) Subjective Above noted events noted patient off of TF due to low BP some bilious leak noted around GT Objective Last 24 Hour Vital Signs Date Time Temp Pulse Resp B/P (MAP) Pulse Ox O2 Delivery O2 Flow Rate FiO2 11/26/19 13:50 100 40 0/0 (0) 95 11/26/19 12:00 70 11/26/19 12:00 103 11/26/19 12:00 98.0 97 18 0/0 (0) 98 11/26/19 12:00 Mechanical Ventilator 11/26/19 11:06 104 27 70 11/26/19 10:30 108 30/20 (23) 11/26/19 08:45 111 11/26/19 08:45 98.1 107 18 58/32 (41) 98 11/26/19 08:00 Mechanical Ventilator 11/26/19 08:00 98.1 112 18 0/0 (0) 99 11/26/19 08:00 70 11/26/19 07:10 105 22 0/0 (0) 99 11/26/19 07:04 98 30 70 11/26/19 04:10 112 11/26/19 04:00 Mechanical Ventilator 11/26/19 04:00 70 11/26/19 04:00 98.8 110 18 90/51 (64) 99 11/26/19 03:54 111 27 70 11/26/19 00:00 Mechanical Ventilator 11/26/19 00:00 98.5 103 18 100/55 (70) 99 11/25/19 23:50 115 11/25/19 23:45 115 26 70 11/25/19 20:00 70 11/25/19 20:00 Mechanical Ventilator 11/25/19 20:00 98.1 88 18 108/60 (76) 99 11/25/19 19:48 106 30 70 11/25/19 19:25 121 11/25/19 16:00 Mechanical Ventilator 11/25/19 16:00 99.0 119 18 105/53 (70) 99 11/25/19 16:00 70 Intake and Output 11/25/19 11/26/19 19:00 07:00 Intake Total 1180 ml 1150 ml Output Total 650 ml 600 ml Balance 530 ml 550 ml Intake Free Water 90 ml IV Total 660 ml 660 ml Tube Feeding 400 ml 400 ml Other 120 ml Output Urine Total 650 ml 600 ml Laboratory Tests 11/25/19 22:56: POC Whole Blood Glucose 116H Height (Feet): 5 Height (Inches): 3.00 Weight (Pounds): 161 Objective debilitated [place] woman NCAT (+) trach coarse BS RR abd distended, (+) GT, some bilious leak around GT (+) edema Faviola Weems MD Nov 26, 2019 16:02
--- NOTE | 2019-11-26 18:10 | NUR ---
NURSE NOTES: [place] [facility] [place] No belongings. Charge nurse made aware.
[2019-11-26] MEDS ORDERED: Bactrim-DS 1 tab GT SCH (21:00)
--- NOTE | 2019-11-28 14:16 | Discharge Summary ---
Discharge Summary Discharge Summary _ SUMMARY DATE OF ADMISSION: 11/01/2019 DATE OF DISCHARGE: 11/26/2019 DISCHARGED BY: Dr. Prince REASON FOR ADMISSION: 74 years old female with past medical history of chronic respiratory failure, ventilator dependent, tracheostomy status, dysphagia, feeding by G-tube, encephalopathy, advanced Parkinson disease, bedbound, AML ( not being treated), ovarian mass consistent with a neoplasm, was sent to emergency department for blood transfusion due to significant pancytopenia. On evaluation WBC 13.3 ,hemoglobin 6.5, hematocrit 20.1 ,platelet count 40. Urinalysis revealed pyuria and many bacteria, +2 protein. Renal parameters revealed BUN 33, creatinine 1.0, stable electrolytes. Albumin 2.3. Chest x-ray demonstrated elevated left hemidiaphragm with considerable left basilar atelectasis and less extensive right basilar atelectasis. Patient was swabbed for COVID-19. In emergency department patient was typed and crossed and started on blood transfusion . Patient pancultured , received empiric antibiotic and admitted for further management. CONSULTANTS: pulmonary Dr. Katie HURLEY specialist Dr. Yadav GI specialist [facility]: Patient admitted to [facility]. Ventilator support and tracheostomy care provided. Pulmonary toilet provided. Patient was at short time in ICU due to hypotension, but responded to IV boluses and albumin boluses and transferred back to [facility]. Midodrine initiated. Patient was followed -up with ABG and chest x-ray. Urine culture initially revealed Klebsiella carbapenem resistant. Blood culture initially showed Staph hemolyticus , likely contaminant , then MRSA , then Acinetobacter MDR and Staph coagulase negative. Patient had intermittent fevers and super- leukocytosis partially also due to AML. Antibiotic provided as per ID recommendation. PICC line was discontinued and tip culture revealed growth of Klebsiella carbapenem resistant. Echocardiogram revealed preserved ejection fraction, no discrete vegetation . COVID-19 by PCR on 11/01 was negative. Venous duplex bilateral lower extremity was negative . SCD applied. Hemoglobin and hematocrit were closely monitored with goal to keep hemoglobin above 7. Severe pancytopenia was most likely due to AML. Patient undergone multiply blood transfusion while in the hospital: total of 6 units of packed red blood cells and 2 units of plateletpheresis. Volumes were closely monitored. Initially G-tube was inadvertently removed was replaced on 11/03 by GI specialist at the bedside. Patient started on the tube feeding however G-tube was leaking. Plan was replaced with a GJ tube , but it was canceled due to leukocytosis. Patient undergone EGD on 11/07 , status post old G-tube removal. However unable to place a new one Patient was left to heal stoma and place a G tube later. Patient was on TPN . Renal parameters and electrolytes were closely monitored, electrolytes corrected as needed. Patient subsequently undergone new PEG placement on 11/20. Patient started on tube feeding as per GI specialist and TPN were tapered and discontinued. Aspiration precaution maintained. Protein supplements provided as per registered dietitian recommendation. Still some leakage around G-tube was seen. Reglan was added by GI specialist. Subsequently G-tube was placed on hold. Supportive care provided. Bowel regimen instituted. Wound care for present on admission decubitus ulcer provided as per surgeon recommendation. Overall prognosis remained grave , given sepsis , multiply comorbidities , superimposed AML and ovarian mass. Patient condition was deteriorating . Patient was pronounced at 2:47 PM 11/26/19. Cause of : cardiopulmonary arrest FINAL DIAGNOSES: Chronic respiratory failure ventilator dependent with tracheostomy status Sepsis with Acinetobacter MDR, MRSA and Staph coag negative bacteremia Providencia, Pseudomonas, Klebsiella CRE pneumonia Possible aspiration PICC line infection with Klebsiella CRE UTI with Klebsiella pneumonia CRE Persistent fevers Hypotension , likely early shock Ovarian mass, consistent with neoplasm AML Suspected COVID-19 infection rule out 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 Leukocytosis Dysphagia , feeding by G-tube Advanced Parkinson disease Severe protein calorie malnutrition Malfunctioning G-tube Status post EGD and removal of G-tube Status post EGD and new PEG placement 11/20 Electrolyte abnormality Multiply DTI present on admission Martha Chandler FOREIGN LANGUAGE INSTRUCTOR Nov 28, 2019 14:16
== END 2019-11-26 14:47 | disposition expired | DRG 870 ==
LOC: EDBD 10:54 → EMR 11:55 → 2W 12:32 → EDBEDREQ 11-02 00:13 → 2W 11-13 15:29
PROC: 5A1955Z Respiratory Ventilation, Greater than 96 Consecutive Hours (ICD-10-PCS; principal; 2019-11-01)
PROC: 02HV33Z Insertion of Infusion Device into Superior Vena Cava, Percutaneous Approach (ICD-10-PCS; 2019-11-04)
PROC: B548ZZA Ultrasonography of Superior Vena Cava, Guidance (ICD-10-PCS; 2019-11-04)
PROC: 0DP68UZ Removal of Feeding Device from Stomach, Via Natural or Artificial Opening Endoscopic (ICD-10-PCS; 2019-11-08)
PROC: B548ZZA Ultrasonography of Superior Vena Cava, Guidance (ICD-10-PCS; 2019-11-16)
PROC: 02HV33Z Insertion of Infusion Device into Superior Vena Cava, Percutaneous Approach (ICD-10-PCS; 2019-11-16)
PROC: 0DH63UZ Insertion of Feeding Device into Stomach, Percutaneous Approach (ICD-10-PCS; 2019-11-21)
DX: A41.02 Sepsis due to Methicillin resistant Staphylococcus aureus (principal); T80.211A Bloodstream infection due to central venous catheter, initial encounter; L89.154 Pressure ulcer of sacral region, stage 4; C92.00 Acute myeloblastic leukemia, not having achieved remission; R53.2 Functional quadriplegia; E43 Unspecified severe protein-calorie malnutrition; R65.21 Severe sepsis with septic shock; J15.1 Pneumonia due to Pseudomonas; J69.0 Pneumonitis due to inhalation of food and vomit; J15.0 Pneumonia due to Klebsiella pneumoniae; N39.0 Urinary tract infection, site not specified; J96.10 Chronic respiratory failure, unspecified whether with hypoxia or hypercapnia; D61.818 Other pancytopenia; K94.23 Gastrostomy malfunction; Z99.11 Dependence on respirator [ventilator] status; G93.40 Encephalopathy, unspecified; Z93.0 Tracheostomy status; Z68.28 Body mass index [BMI] 28.0-28.9, adult; D49.59 Neoplasm of unspecified behavior of other genitourinary organ; G20 Parkinson's disease; F02.80 Dementia in other diseases classified elsewhere, unspecified severity, without behavioral disturbance, psychotic disturbance, mood disturbance, and anxiety; Z74.01 Bed confinement status; D63.0 Anemia in neoplastic disease; R13.10 Dysphagia, unspecified; Z66 Do not resuscitate; D69.6 Thrombocytopenia, unspecified; E87.6 Hypokalemia; Z20.828 Contact with and (suspected) exposure to other viral communicable diseases
CPT/HCPCS: 36415; 36569; 36600; 71045; 74018; 74176; 76700; 76937; 80048; 80053; 80076; 80150; 81001; 81003; 82248; 82550; 82803; 82962; 83735; 83880; 84100; 85007; 85025; 85610; 85730; 86850; 86900; 86901; 86920; 87040; 87070; 87081; 87086; 87181; 87205; 93005; 93306; 93970; 94002; 94003; 94150; 96361; 96365; 99285; J1815; J2765; J7030; J8499